=== PATIENT | female | born 1970 | race Caucasian/White ===

== ENCOUNTER 2024-04-18 10:47 | Inpatient (IN) ==
--- NOTE | 2024-04-18 11:20 | Emergency Department Note ---
Impression & Plan Sepsis, Discitis thoracic region, Osteomyelitis of thoracic vertebra, Vertebral abscess, Pleural effusion on left, Pericardial effusion, Hyponatremia, Transaminitis ED Provider Note NAME: YAKOV MCKEON AGE: 54 SEX: F : 1970 ARRIVES VIA: Walk-In INFORMANT: Patient ED PROVIDER(S): Alejandro Rae MD CHIEF COMPLAINT: Back pain, abdominal bloating. PLAN: Disposition: Transfer MEDICAL DECISION MAKING: The patient is a pleasant 54-year-old woman who presents to the emergency department via walk-in accompanied by friend referred from general surgery office visit for evaluation of concern for infection in the setting of being seen in this emergency department on 04/15 for symptoms of abdominal pain and distention in the setting of having constipation and bloating. 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 Additionally, description of abnormal rind of soft tissue involving the partially imaged lower thoracic vertebral bodies was noted and was greatest at T9 and appeared to be contiguous with the pleural-based soft tissue thickening in the left lung. No underlying bony destruction was identified. The appearance favored a neoplastic process such as lymphoma however an infectious or inflammatory process could look similar. Findings reviewed with the patient and she was offered admission at that time but preferred outpatient follow-up and treatment for suspected constipation. Patient reports using MiraLAX since her Emergency Department visit and having loose stools subsequently but reports continuation of abdominal bloating and back pain. She further adds that the pain worsens when she lifts her legs and notes that when she bends her neck forward she feels pain go down her back into her legs. She feels bloated in her abdomen but denies dyspnea abdominal pain. She has she denies any measured fevers. She denies nausea and vomiting but is burping a lot. She denies any chest pain or shortness of breath. Patient reports she has had minimal oral intake but has been attempting to drink water. On evaluation the patient is no distress, afebrile heart in the 120s upon presentation to triage and vital signs otherwise stable. Heart rate did improve with IV fluid hydration. Patient appears clinically dry. She has mild abdominal distention without tenderness, guarding or rebound. He does report pain that radiates down her back to her legs with neck flexion. She further reports pain in her back with flexion of bilateral hips. She has normal strength in all extremities. Reflexes within normal limits. No clonus. EKG without overt acute ischemia. CXR with left pleural effusion WBC 26.8K with neutrophil predominance increased from 11K several days ago. H/H and platelets within normal limits. ESR and CRP are elevated at 78 and 51, respectively. Chemistry without metabolic acidosis. Sodium is 121 likely related to poor solute intake and hemodilution. Serum osmolality 257, urine osmolality 384, and undetectable urine sodium. LFTs demonstrate transaminitis with total bilirubin 1.7, AST 69 and ALT 64 with alk phos 206. HS troponin 41.3, nonspecific. Procalcitonin is elevated 2.2 consistent with suspicion for infection/sepsis. UA without convincing evidence of infection. CT of the head, CT L-spine, soft tissue neck, chest and abdomen pelvis were obtained to further clarify patient no symptoms. Interval findings include progression of prior thoracic findings including paravertebral abnormality centered at T8-T9 with left paravertebral phlegmon/developing abscess. There is description of evidence for epidural extension with moderate narrowing of the thecal sac which could represent an epidural abscess or mass with MRI is recommended though CT thoracic spine with contrast shows no significant central canal narrowing by CT. Further, small focus of bony destruction with the left side of the T9 vertebral body is consistent with osteomyelitis. There may be associated discitis at the T8-T9 level. Small pleural effusion is present as is a small pericardial effusion with mild enhancement of the pericardium which may represent mild pericarditis. Patient's previously identified mucocele is again described. Mildly distended and fluid-filled colon is seen. Fibroid uterus is again present. Case was discussed with [place] [facility], Dr. Romero who was not on-call however appreciate discussion and recommendations. Unfortunately, due to no spine coverage in addition to the complex characteristics of the patient's findings recommends transfer to tertiary care center for further management where there is spine availability as well as IR capability for biopsy/culture. Agrees with initiation of IV antibiotics. Findings were reviewed with the patient and friend at the bedside. Ultimately, they agree with plan [place] [facility] [place]. Case was discussed with triage officer Dr. Casarez who will review the case with inpatient hospitalist service and neurosurgery. The patient was accepted [place] [facility] [place] and was accepted by Dr. Mo. Unfortunately, there are no beds available until tomorrow. Thus, patient was referred to hospital service for admission until bed is assigned and transfer is arranged. Case was d/w Dr. Gonzales, [facility] hospitalist who will evaluate the patient for admission. Triage Nursing notes reviewed and agree them. Prior/external medical records reviewed Vital Signs: reviewed Differential diagnosis: Sepsis, UTI, pneumonia, metabolic, electrolyte abnormalities, cardiac sources, intracerebral event, toxicologic, neurologic, as well as other pathologies. ER treatment provided: See below. Diagnostics interpreted by me: ECG: Sinus tachycardia, 113 bpm, occasional PVCs, no overt ST ovation or depression, no AR depressions, QTc 447, QRS 84. Cardiac Monitoring: An order for continuous cardiac monitoring was placed and demonstrated Sinus tachycardia, 113 bpm, occasional PVC Laboratory studies: See below Imaging studies: See below Consultation(s): Dr. Romero, [place] [facility]. Dr. Casarez, [facility] [place] HPI: The patient is a pleasant 54-year-old woman who presents to the emergency department via walk-in accompanied by friend referred from general surgery office visit for evaluation of concern for infection in the setting of being seen in this emergency department on 04/15 for symptoms of abdominal pain and distention in the setting of having constipation and bloating. 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 Additionally, description of abnormal rind of soft tissue involving the partially imaged lower thoracic vertebral bodies was noted and was greatest at T9 and appeared to be contiguous with the pleural-based soft tissue thickening in the left lung. No underlying bony destruction was identified. The appearance favored a neoplastic process such as lymphoma however an infectious or inflammatory process could look similar. Findings reviewed with the patient and she was offered admission at that time but preferred outpatient follow-up and treatment for suspected constipation. Patient reports using MiraLAX since her Emergency Department visit and having loose stools subsequently but reports continuation of abdominal bloating and back pain. She further adds that the pain worsens when she lifts her legs and notes that when she bends her neck forward she feels pain go down her back into her legs. She feels bloated in her abdomen but denies dyspnea abdominal pain. She has she denies any measured fevers. She denies nausea and vomiting but is burping a lot. She denies any chest pain or shortness of breath. Patient reports she has had minimal oral intake but has been attempting to drink water. ROS: See above HPI for pertinent positives & negatives. A total of 10 systems reviewed and were otherwise negative. VITALS:See Below PHYSICAL EXAMINATION: GENERAL: Awake, alert, uncomfortable-appearing, in no distress HENT: Normocephalic, atraumatic. Oropharynx with dry mucous membranes and otherwise unremarkable. EYES: Normal conjunctiva. Sclera non-icteric. NECK: Supple. No nuchal rigidity. FROM. No JVD. RESPIRATORY: Clear to auscultation. CARDIAC: Regular rate, normal rhythm. Extremities warm and well perfused. Pulses equal. ABDOMEN: Mild distension but soft. No tenderness to palpation. No rebound or guarding. No masses. MUSCULOSKELETAL: Chest examination reveals no tenderness. The back is symmetrical on inspection without obvious abnormality. There is no CVA tenderness to palpation. No joint edema. LOWER EXTREMITIES: Calves are equal size bilaterally and non-tender. No edema. No discoloration. NEURO: Normal sensorium. No sensory or motor deficits noted. 5/5 strength and SILT x 4 extremities. DTRs wnl. No clonus. SKIN: No rash or jaundice noted. ED COURSE: Critical Care: I have personally spent greater than 95 minutes of critical care time in the direct management of this patient. This includes bedside care, interpretation of diagnostic studies, and testing, discussion with consultants, patient, and family members, and other required patient management activities. This 95 minutes is in excess of all separately billable procedures. Alejandro Rae MD Past Med/Surg History Problem List (Updated 04/18/24 @ 17:23 by Alejandro Rae MD) Transaminitis (Acute) Hyponatremia (Acute) Pericardial effusion (Acute) Pleural effusion on left (Acute) Vertebral abscess (Acute) Osteomyelitis of thoracic vertebra (Acute) Discitis thoracic region (Acute) Sepsis (Acute) Back pain Back problem Abnormal CT of thoracic spine (Acute) Mucocele of appendix (Acute) Abdominal pain (Acute) Surgical History History of wisdom tooth extraction Family History Other Adopted Social History Smoking Status: Never smoker Hx Alcohol Use: No Hx Substance Use: No Preferred Language: Cameroonian marital status: Single current occupational status: employed 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[employer], 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 How many Children do You have: 0 Feels Safe at Home: Yes Diet: regular during the past year weight has: remained stable Allergies Allergies Allergy/AdvReac Type Severity Reaction Status Date / Time [id number] Allergy Mild Uncoded 01/17/07 23:08 Home Meds Home Medications Medication Instructions Recorded Confirmed None (Patient States No Home Meds) ##0 01/17/07 Results & Data (ED) Vital Signs Vital Signs - 24 hr 04/18/24 10:57 04/18/24 13:07 04/18/24 13:09 Temperature 36.5 C Temperature Source Temporal Artery Scan Pulse Rate 129 H 101 H 98 H Pulse Rate [Apical] Pulse Rate from SpO2 Sensor 98 H Pulse Rhythm [Apical] Pulse Strength [Apical] Respiratory Rate 18 28 H Respiratory Effort / Characteristics Non-Labored Respiratory Depth Normal Respiratory Pattern Regular Blood Pressure 117/75 Blood Pressure [Right Arm] Blood Pressure Mean 89 Blood Pressure Mean [Right Arm] Blood Pressure Position [Right Arm] Pulse Oximetry 92 94 Oxygen Delivery Method Room Air Sepsis Recent Fever Within 48 Hours No Sepsis New/Unexplained Change in Mental Status N/A Sepsis Action Taken by Nursing No Action Required 04/18/24 13:15 04/18/24 13:22 04/18/24 13:30 Temperature Temperature Source Pulse Rate 101 H Pulse Rate [Apical] Pulse Rate from SpO2 Sensor 101 H Pulse Rhythm [Apical] Pulse Strength [Apical] Respiratory Rate 26 H Respiratory Effort / Characteristics Respiratory Depth Respiratory Pattern Blood Pressure 113/75 106/67 Blood Pressure [Right Arm] Blood Pressure Mean 92 83 Blood Pressure Mean [Right Arm] Blood Pressure Position [Right Arm] Pulse Oximetry 93 Oxygen Delivery Method Sepsis Recent Fever Within 48 Hours Sepsis New/Unexplained Change in Mental Status Sepsis Action Taken by Nursing 04/18/24 13:30 04/18/24 13:49 04/18/24 16:00 Temperature 36.5 C Temperature Source Oral Pulse Rate 102 H Pulse Rate [Apical] 95 H Pulse Rate from SpO2 Sensor 102 H Pulse Rhythm [Apical] Regular Pulse Strength [Apical] Normal Respiratory Rate 24 24 Respiratory Effort / Characteristics Non-Labored Respiratory Depth Normal Respiratory Pattern Regular Blood Pressure 128/85 Blood Pressure [Right Arm] 105/76 Blood Pressure Mean 100 Blood Pressure Mean [Right Arm] 85 Blood Pressure Position [Right Arm] Semi-fowlers Pulse Oximetry 94 94 Oxygen Delivery Method Room Air Sepsis Recent Fever Within 48 Hours Sepsis New/Unexplained Change in Mental Status Sepsis Action Taken by Nursing Laboratory Data Attestation: I reviewed the patient's lab results. 04/18/24 11:11 04/18/24 11:11 Lab Results 04/18/24 04/18/24 04/18/24 Range/Units 11:07 11:11 12:02 WBC 26.84 H (4.8-10.8) K/ul RBC 4.73 (4.20-5.40) M/uL Hgb 14.0 (12.0-16.0) g/dl Hct 39.9 (37.0-47.0) % MCV 84.4 (80.0-100.0) fL MCH 29.6 (25.0-34.0) pg MCHC 35.1 (32.0-36.0) g/dL RDW Std Deviation 42.9 (36.4-46.3) fL RDW Coeff of Mita 13.9 (11.5-14.5) % Plt Count 214 (130-400) K/uL MPV 11.6 (9.4-12.4) fL Neutrophils % (Manual) 91 % Lymphocytes % (Manual) 3 % Monocytes % (Manual) 6 % Neutrophils # (Manual) 24.42 H (1.40-6.50) K/uL Total Absolute Neuts 24.42 H (1.4-6.5) K/uL Lymphocytes # (Manual) 0.81 L (1.2-3.4) K/uL Total Abs Lymphocytes 0.81 L (1.2-3.4) K/uL Monocytes # (Manual) 1.61 H (0.11-0.59) K/uL ESR 78 H (0-30) mm/hr PT 12.2 H (9.0-12.0) Seconds INR 1.1 (0.9-1.1) Sodium 121 L (136-145) mmol/L Potassium 4.5 (3.5-5.1) mmol/L Chloride 80 L (98-107) mmol/L Carbon Dioxide 29 (21-32) mmol/L Anion Gap 12 H (3-11) BUN 15 (6-23) mg/dl Creatinine 0.92 (0.6-1.2) mg/dl Est Cr Clr Drug Dosing Not Reportable Est GFR ( Amer) 80.7 ml/min Est GFR (Non-Af Amer) 69.6 ml/min BUN/Creatinine Ratio 16.3 (10-20) Glucose 200 H (70-99(Fasting)) mg/dl Osmolality 257 L (280-300) mOsm/kg Lactate Cancelled Calcium 8.8 (8.6-10.3) mg/dl Total Bilirubin 1.7 H (0.2-1.0) mg/dl AST 69 H (13-39) U/L ALT 64 H (7-52) U/L Alkaline Phosphatase 206 H (34-104) U/L Troponin I High Sens 41.3 H (0-14) pg/ml C-Reactive Protein 51.54 H (0-0.5) mg/dl Total Protein 7.1 (6.0-8.3) gm/dl Albumin 3.6 (3.4-5.0) gm/dl Globulin 3.5 (2.5-4.0) gm/dl Albumin/Globulin Ratio 1.0 (0.9-2) Lipase 6 L (11-82) U/L Procalcitonin 2.24 H (0-0.5) ng/ml HCG, Qual Negative (Negative) Urine Color Dark Yellow Urine Appearance Cloudy A (Clear) Urine pH 6.0 (4.5-7.5) Ur Specific [place] 1.018 (1.000-1.030) Urine Protein 2+ H (Negative) Urine Glucose (UA) Negative (Negative) Urine Ketones 2+ H (Negative) Urine Blood Negative (Negative) Urine Nitrite Negative (Negative) Urine Bilirubin Negative (Negative) Urine Urobilinogen Negative (Negative) Ur Leukocyte Esterase Trace H (Negative) Urine WBC (Auto) 0-5 (0-5) /hpf Urine RBC (Auto) 0-2 (0-2) /hpf U Hyaline Cast (Auto) 6-10 H (0-2) /lpf U Epithel Cells (Auto) 6-10 H (0-2) /hpf Urine Bacteria (Auto) None Seen (None Seen) Hyaline Casts Present A (None Presnt) /lpf Granular Casts Present A (None Prsent) /lpf Urine Osmolality 384 L (500-800) mOsm/kg Ur Random Sodium < 10 mmol/L Adenovirus (PCR) (NotDetected) Anaplasma Smear See Comment Babesia Smear See Comment B. pertussis DNA (PCR) (NotDetected) B.parapertussis DNA PCR (NotDetected) Lyme Disease Screen Negative (Negative) C. pneumoniae DNA (PCR) (NotDetected) Coronavirus OC43 (PCR) (NotDetected) Coronavirus HKU1 (PCR) (NotDetected) Coronavirus 229E (PCR) (NotDetected) SARS-CoV-2 (PCR) (NotDetected) Coronavirus NL63 (PCR) (NotDetected) Human Metapneumovir PCR (NotDetected) Influenza Type A (PCR) (NotDetected) Influenza Type B (PCR) (NotDetected) M. pneumoniae (PCR) (NotDetected) Parainfluenza 1 (PCR) (NotDetected) Parainfluenza 2 (PCR) (NotDetected) Parainfluenza 3 (PCR) (NotDetected) Parainfluenza 4 (PCR) (NotDetected) RSV (PCR) (NotDetected) Entero/Rhino (PCR) (NotDetected) 04/18/24 04/18/24 Range/Units 12:47 14:22 WBC (4.8-10.8) K/ul RBC (4.20-5.40) M/uL Hgb (12.0-16.0) g/dl Hct (37.0-47.0) % MCV (80.0-100.0) fL MCH (25.0-34.0) pg MCHC (32.0-36.0) g/dL RDW Std Deviation (36.4-46.3) fL RDW Coeff of Mita (11.5-14.5) % Plt Count (130-400) K/uL MPV (9.4-12.4) fL Neutrophils % (Manual) % Lymphocytes % (Manual) % Monocytes % (Manual) % Neutrophils # (Manual) (1.40-6.50) K/uL Total Absolute Neuts (1.4-6.5) K/uL Lymphocytes # (Manual) (1.2-3.4) K/uL Total Abs Lymphocytes (1.2-3.4) K/uL Monocytes # (Manual) (0.11-0.59) K/uL ESR (0-30) mm/hr PT (9.0-12.0) Seconds INR (0.9-1.1) Sodium (136-145) mmol/L Potassium (3.5-5.1) mmol/L Chloride (98-107) mmol/L Carbon Dioxide (21-32) mmol/L Anion Gap (3-11) BUN (6-23) mg/dl Creatinine (0.6-1.2) mg/dl Est Cr Clr Drug Dosing Est GFR ( Amer) ml/min Est GFR (Non-Af Amer) ml/min BUN/Creatinine Ratio (10-20) Glucose (70-99(Fasting)) mg/dl Osmolality (280-300) mOsm/kg Lactate 1.3 Calcium (8.6-10.3) mg/dl Total Bilirubin (0.2-1.0) mg/dl AST (13-39) U/L ALT (7-52) U/L Alkaline Phosphatase (34-104) U/L Troponin I High Sens (0-14) pg/ml C-Reactive Protein (0-0.5) mg/dl Total Protein (6.0-8.3) gm/dl Albumin (3.4-5.0) gm/dl Globulin (2.5-4.0) gm/dl Albumin/Globulin Ratio (0.9-2) Lipase (11-82) U/L Procalcitonin (0-0.5) ng/ml HCG, Qual (Negative) Urine Color Urine Appearance (Clear) Urine pH (4.5-7.5) Ur Specific [place] (1.000-1.030) Urine Protein (Negative) Urine Glucose (UA) (Negative) Urine Ketones (Negative) Urine Blood (Negative) Urine Nitrite (Negative) Urine Bilirubin (Negative) Urine Urobilinogen (Negative) Ur Leukocyte Esterase (Negative) Urine WBC (Auto) (0-5) /hpf Urine RBC (Auto) (0-2) /hpf U Hyaline Cast (Auto) (0-2) /lpf U Epithel Cells (Auto) (0-2) /hpf Urine Bacteria (Auto) (None Seen) Hyaline Casts (None Presnt) /lpf Granular Casts (None Prsent) /lpf Urine Osmolality (500-800) mOsm/kg Ur Random Sodium mmol/L Adenovirus (PCR) Not Detected (NotDetected) Anaplasma Smear Babesia Smear B. pertussis DNA (PCR) Not Detected (NotDetected) B.parapertussis DNA PCR Not Detected (NotDetected) Lyme Disease Screen (Negative) C. pneumoniae DNA (PCR) Not Detected (NotDetected) Coronavirus OC43 (PCR) Not Detected (NotDetected) Coronavirus HKU1 (PCR) Not Detected (NotDetected) Coronavirus 229E (PCR) Not Detected (NotDetected) SARS-CoV-2 (PCR) Not Detected (NotDetected) Coronavirus NL63 (PCR) Not Detected (NotDetected) Human Metapneumovir PCR Not Detected (NotDetected) Influenza Type A (PCR) Not Detected (NotDetected) Influenza Type B (PCR) Not Detected (NotDetected) M. pneumoniae (PCR) Not Detected (NotDetected) Parainfluenza 1 (PCR) Not Detected (NotDetected) Parainfluenza 2 (PCR) Not Detected (NotDetected) Parainfluenza 3 (PCR) Not Detected (NotDetected) Parainfluenza 4 (PCR) Not Detected (NotDetected) RSV (PCR) Not Detected (NotDetected) Entero/Rhino (PCR) Not Detected (NotDetected) Administered Medications Vancomycin HCl 1,750 mg/ (Sodium Chloride) 535 mls @ 200 mls/hr IV NOW ONE Stop: 04/18/24 18:24 Last Admin: 04/18/24 16:59 Dose: 200 mls/hr Documented By: ROVERTO Sodium Chloride (Nss) 1,000 mls @ 125 mls/hr IV .Q8H VICKI Stop: 05/18/24 15:59 Last Admin: 04/18/24 16:58 Dose: 125 mls/hr Documented By: ROVERTO Discontinued Medications Sodium Chloride (Nss) 1,000 mls @ 999 mls/hr IV .Q1H1M VICKI Stop: 04/18/24 13:30 Last Infusion: 04/18/24 16:54 Dose: Infused Documented By: Admin: 04/18/24 13:49 Dose: 999 mls/hr Documented By: Infusion: 04/18/24 12:50 Dose: Infused Documented By: Admin: 04/18/24 11:49 Dose: 999 mls/hr Documented By: NICHOLAS Acetaminophen (Ofirmev) 1,000 mg in 100 mls @ 400 mls/hr IV NOW STA Stop: 04/18/24 11:59 Last Infusion: 04/18/24 12:30 Dose: Infused Documented By: Admin: 04/18/24 11:51 Dose: 400 mls/hr Documented By: NICHOLAS Cefepime HCl (Maxipime) 2,000 mg in 20 mls @ 5 mls/min IV NOW STA; Protocol Stop: 04/18/24 15:20 Last Admin: 04/18/24 15:37 Dose: 5 mls/min Documented By: ROVERTO Metronidazole (Flagyl) 500 mg in 100 mls @ 100 mls/hr IV NOW STA; Protocol Stop: 04/18/24 16:16 Last Infusion: 04/18/24 16:53 Dose: Infused Documented By: Admin: 04/18/24 15:45 Dose: 100 mls/hr Documented By: ROVERTO Ioversol (Optiray 320 100ml) 94 ml IV ONCE ONE Stop: 04/18/24 12:28 Last Admin: 04/18/24 12:27 Dose: 94 ml Documented By: BISI Imaging Data Radiologist's Impression: Chest X-Ray 04/18/24 11:24 XR chest 1V portable HISTORY: fever COMPARISON: None. FINDINGS: Small left pleural effusion and left basilar densities suggestive of atelectasis. No pneumothorax. The heart is mildly enlarged. The right lung is clear. No evidence for pulmonary edema. No acute fractures. IMPRESSION: 1. Small left pleural effusion. 2. Left basilar densities favor atelectasis. 3. Mild cardiomegaly. ACT 112: Negative or not required by law. Electronically signed by: Frankie Peña M.D. 04/18/2024 1:26 PM Abdomen/Pelvis CT 04/18/24 11:[address] WITH IV CONTRAST CT DOSE: HISTORY: AP, bloating, liea-esgy-jve pain, ?lympho/Infect TECHNIQUE: Multiaxial CT images of the abdomen and pelvis were performed following the use of intravenous contrast. A dose lowering technique was utilized adhering to the principles of ALARA. COMPARISON STUDY: Abdomen and pelvis CT 04/15/2024. FINDINGS: Please refer to the dedicated chest CT and thoracic spine CT performed same day for further evaluation of the paravertebral abnormality at the T8-T9 level. There appears to be epidural extension of the paravertebral abnormality at the T8-T9 level with moderate narrowing of the thecal sac best seen on image 50. The punctate focus of gas posterior to the T10 vertebral body. Therefore, this could represent an epidural abscess. A paravertebral soft tissue mass also remains in the differential diagnosis. Small foci of gas along the left side of the paravertebral T8-T9 level is again noted suggestive of a paravertebral abscess/phlegmon. Small focus of bone erosion within the left side of the T9 vertebral body is also noted. Small left pleural effusion. No pneumoperitoneum. No pneumatosis. The heart is enlarged. Mild pericardial enhancement with a small pericardial effusion. A 7 mm hypodense lesion within the periphery the right hepatic lobe remain stable. This favors a cyst. The gallbladder, pancreas, spleen, and adrenal glands are unremarkable. The kidneys enhance normally. No hydronephrosis. The main portal vein is patent. Normal caliber abdominal aorta. No retroperitoneal or pelvic lymphadenopathy. Multiple large uterine masses consistent with fibroids. The bladder is unremarkable. Mild pelvic floor collapse. Mild body wall edema. Fluid-filled loops of large or small bowel seen throughout the abdomen. There is mild distention of the colon. This could represent an ileus or gastroenteritis/diarrheal illness. No evidence for a bowel obstruction. Partially calcified hypodense lesion within the appendix best seen on image 255 measuring 3.9 cm. This is consistent with a mucocele. IMPRESSION: 1. Interval progression of the paravertebral abnormality centered at the T8-T9 level with a left paravertebral phlegmon/developing abscess. There is evidence for epidural extension with moderate narrowing of the thecal sac. Therefore, this could represent an epidural abscess or mass. Dedicated thoracic spine MRI is recommended for further evaluation. 2. Small focus of bony destruction within the left side of the T9 vertebral body consistent with an osteomyelitis. There may be associated discitis at the T8-T9 level. 3. Small left pleural effusion. 4. Small pericardial effusion with mild enhancement of the pericardium which may represent a mild pericarditis. 5. 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 Nonemergent surgical consultation recommended for removal. 6. Fibroid uterus. 7. Mildly distended and fluid-filled colon. This could be due to an ileus or diarrhea illness/gastroenteritis. 8. Additional findings as described above. ACT 112: Negative or not required by law. Electronically signed by: Frankie Peña M.D. 04/18/2024 1:35 PM Cervical Spine CT 04/18/24 11:37 CT OF THE CERVICAL SPINE WITHOUT CONTRAST CLINICAL HISTORY: Neck pain. COMPARISON STUDY: No previous studies for comparison. TECHNIQUE: Helical axial images of the cervical spine were obtained without IV contrast. Sagittal and coronal reconstructions were viewed. Automated exposure control was utilized for the study. A dose lowering technique was utilized adhering to the principles of ALARA. FINDINGS: Alignment of the cervical spine is anatomic. Vertebral body heights are maintained. No acute cervical spine fracture or subluxation is present. There is no prevertebral edema. Facet joints are intact. There is mild multilevel disc space narrowing and osteophytosis of the facet arthrosis within the cervical spine. Central canal and neural foramen are suboptimally assessed given CT technique. A small amount of fluid within the right mastoid air cells is present. IMPRESSION: 1. No acute cervical spine fracture or subluxation. 2. Mild multilevel degenerative disc disease and facet arthrosis within the cervical spine. ACT 112: Negative or not required by law. Electronically signed by: Edwin Spring M.D. 04/18/2024 1:[address] 04/18/24 11:[address] WITH CONTRAST CT DOSE: HISTORY: [id number] pain, ?lympho/Infect TECHNIQUE: Multiaxial CT images of the chest were performed following the intravenous administration of contrast. A dose lowering technique was utilized adhering to the principles of ALARA. COMPARISON: Abdomen and pelvis CT 04/15/2024. FINDINGS: Paravertebral edema at the T8-T9 level with a few small foci of left paravertebral soft tissue gas are again noted and are better appreciated on the same day thoracic spine CT. Small focal erosion at the left superior endplate of T9 best in image 149. The small foci of the left paravertebral gas are consistent with a developing abscess/phlegmon. There is a small left pleural effusion. Subcentimeter mediastinal and hilar lymph nodes do not meet CT criteria for pathologic involvement. Dominant superior mediastinal lymph node on image 21 measures 8 mm. Small pericardial effusion with mild enhancement of the pericardium. This could represent a mild pericarditis. The heart is mildly enlarged. Mild circumferential thickening of the mid to distal esophagus which could be reactive to the paravertebral abnormality. There is a punctate focus of gas posterior to the T10 vertebral body within the anterior epidural space. The abdominal structures will be reported on the same day abdomen and pelvis CT. The main pulmonary artery is dilated up to 3 cm consistent with mild pulmonary arterial hypertension. Otherwise, the central airways are patent. There is mild body wall edema. No pneumothorax. The central airways are patent. Bibasilar linear densities favor subsegmental atelectasis. Focal consolidation within the base of the left lower lobe favors compressive atelectasis from the small left pleural effusion. IMPRESSION: 1. Paravertebral abnormality centered at the T8-T9 level is better appreciated on the same day thoracic spine CT. There are few small foci of gas within the left paravertebral space at this location which suggests a phlegmon/developing abscess. There is also a small focus of bony erosion at the left superior osteophyte of T9 consistent with osteomyelitis. Dedicated MRI of the thoracic spine is recommended for further evaluation. 2. The punctate focus of gas posterior to the T10 vertebral body which is indeterminate. Attention at follow-up recommended. 3. Small left pleural effusion. 4. Small pericardial effusion with mild enhancement of the pericardium. This could represent a mild pericarditis. 5. No significant lymphadenopathy identified. 6. Circumferential thickening within the mid to distal esophagus. This could be reactive to the paravertebral abnormality. 7. Additional findings as described above. ACT 112: Negative or not required by law. Electronically signed by: Frankie Peña M.D. 04/18/2024 1:[address] 04/18/24 11:37 CT SCAN OF THE BRAIN WITHOUT IV CONTRAST CLINICAL HISTORY: Neck pain. COMPARISON STUDY: No priors. TECHNIQUE: Unenhanced axial CT scan of the brain is performed from the vertex to the skull base. A dose lowering technique was utilized adhering to the principles of ALARA. FINDINGS: Brain parenchyma: The brain parenchyma is normal in appearance. There is no hemorrhage, mass effect, or evidence of acute territorial ischemia by CT criteria. Mejias-white matter differentiation is preserved. No extra-axial fluid collection is seen. Ventricles, sulci, cisterns: Normal in configuration. Intracranial vasculature: The visualized intracranial vasculature at the skull base is normal in appearance. Calvarium: Unremarkable. Sinuses and mastoids: The visualized paranasal sinuses are clear. There is a right mastoid effusion. The left mastoid air cells are well pneumatized. Orbits: The bony orbits are grossly intact. IMPRESSION: No acute intracranial abnormality. ACT 112: Negative or not required by law. Electronically signed by: Guillermo Eldridge M.D. 04/18/2024 12:[address] 04/18/24 11:37 CT SCAN OF THE LUMBAR SPINE WITH IV CONTRAST CLINICAL HISTORY: Back pain. Leg pain. COMPARISON STUDY: Abdominal CT performed concurrently on 04/18/[address] dated 04/15/2024. TECHNIQUE: Following the IV administration of 94 cc of Optiray 320, CT scan of the lumbar spine was performed from the lower thoracic spine to the sacrum. Images are reviewed in the axial, sagittal, and coronal planes. IV contrast was administered without complication. A dose lowering technique was utilized adhering to the principles of ALARA. CT DOSE: 2908.14 mGy.cm FINDINGS: The skeletal structures are well-mineralized. There is no evidence of fracture or malalignment involving the lumbar spine. Vertebral body height and alignment are maintained. The transverse and spinous processes are intact. There is no spondylolysis. No lytic or blastic lesion is seen. Tiny anterior and lateral marginal osteophytes are seen throughout. No lytic or blastic lesion is identified. There is mild degenerative disc space narrowing, greatest at L2-L3 and L3-L4. There is no CT evidence of large disc herniation or central canal stenosis. The lumbar paraspinous soft tissues are normal in appearance. A left pleural effusion is partially imaged. No retroperitoneal lymphadenopathy is seen. 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 Uterine mass lesions are partially imaged and typical for fibroids. IMPRESSION: 1. No acute bony abnormality is seen involving the lumbar spine. 2. 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 3. A left pleural effusion is partially imaged. 4. Additional findings as above. ACT 112: Negative or not required by law. Dictated: 04/18/2024 12:52 PM Transcribed: 04/18/2024 1:22 PM Sarah [id number] [id number] Electronically signed by: Guillermo Eldridge M.D. 04/18/2024 5:[address] 04/18/24 11:37 CT OF THE NECK WITH IV CONTRAST CLINICAL HISTORY: [id number] pain, ?lympho/Infect COMPARISON STUDY: No previous studies for comparison. TECHNIQUE: Following IV administration of 94 mL of Optiray, helical axial images of the neck were obtained. Sagittal and coronal reconstructions were viewed. Automated exposure control was utilized for the study. A dose lowering technique was utilized adhering to the principles of ALARA. FINDINGS: There is a small amount of fluid within the right mastoid air cells. The sinuses are clear. The parotid and submandibular glands are unremarkable. The epiglottis is normal. No prevertebral edema edema. There are no fluid collection within the neck. Major vasculature of the neck is patent. No cervical lymphadenopathy. No mucosal lesions are identified. Mild multilevel degenerative disc disease and facet arthrosis within the cervical spine is present. A small left pleural effusion is partially imaged. The chest CT will be reported separately. IMPRESSION: 1. No acute process within the neck. 2. No cervical lymphadenopathy or masses. 3. Small left pleural effusion, better depicted on the chest CT which will be reported separately. ACT 112: Negative or not required by law. Electronically signed by: Edwin Spring M.D. 04/18/2024 1:[address] 04/18/24 11:37 CT thoracic spine w con CT DOSE: CLINICAL HISTORY: [id number] pain, ?lympho/Infect TECHNIQUE: Multiaxial CT images of the thoracic spine were performed following the intravenous administration of contrast and reformatted in the sagittal and coronal planes. A dose lowering technique was utilized adhering to the principles of ALARA. COMPARISON STUDY: Abdomen and pelvis CT 04/15/2024. FINDINGS: There is abnormal paravertebral soft tissue swelling centered at the T8-T9 level with a few small foci of paravertebral soft tissue gas along the left side of the T8-T9 level. Therefore, this likely represents underlying paravertebral infection with developing abscess/phlegmon. There is a small focus of cortical erosion along the left superior osteophyte of T9 best seen on coronal image 46. However, the disc space is preserved without significant endplate destruction. Therefore, these findings favor a paravertebral infection with secondary involvement of the T9 vertebral body consistent with an osteomyelitis. A discitis/osteomyelitis at the T8-T9 level also remains in the differential diagnosis given the surrounding paravertebral edema. There is a small left pleural effusion. No significant central canal narrowing by CT technique. No fracture or subluxation within the thoracic spine. IMPRESSION: 1. Abnormal paravertebral soft tissue swelling centered at the T8-T9 level which has progressed in the interval with a few small foci of left paravertebral gas at this location. Therefore, this is consistent with a paravertebral infection with developing abscess/phlegmon. 2. . There is a small focus of cortical erosion along the left superior osteophyte of T9 as described above. However, the disc space is preserved without significant endplate destruction. Therefore, these findings favor a paravertebral infection with secondary involvement of the T9 vertebral body consistent with an osteomyelitis. A discitis/osteomyelitis at the T8-T9 level also remains in the differential diagnosis given the surrounding paravertebral edema. ACT 112: Negative or not required by law. Electronically signed by: Frankie Peña M.D. 04/18/2024 1:16 PM Discharge Plan Visit Data Chief Complaint: Referred by Doctor Stated Complaint: REF BY DOC FOR MULTIPLE SYMPTOMS ED Provider: Alejandro Rae Discharge Problem: Sepsis, Discitis thoracic region, Osteomyelitis of thoracic vertebra, Vertebral abscess, Pleural effusion on left, Pericardial effusion, Hyponatremia, Transaminitis Forms Stand Alone Forms: [employer] Prescriptions Prescriptions: No Action None (Patient States No Home Meds) . Qty: 0 Referrals Referrals: PCP,NO [Physician] - Discharge Problem: Sepsis Qualifiers: Sepsis type: sepsis due to unspecified organism Sepsis acute organ dysfunction status: unspecified Qualified Code(s): A41.9 - Sepsis, unspecified organism
[2024-04-18 11:31] LABS: Appearance Urine Cloudy (Clear); Bacteria Urine Automated None Seen (None Seen); Bilirubin Urine Negative (Negative); Blood Urine Negative (Negative); Color Urine Dark Yellow; Glucose Urine UA Negative (Negative); Ketones Urine 2+ (Negative); Leukocyte Esterase Urine Trace (Negative); Nitrite Urine Negative (Negative); Protein Urine 2+ (Negative); RBC Urine Automated 0-2 /hpf (0-2); Specific Gravity Urine 1.018 (1.000-1.030); Urobilinogen Urine Negative (Negative); WBC Urine Automated 0-5 /hpf (0-5)
[2024-04-18 11:42] LABS: Granular Casts Urine Present /lpf (None Prsent); Hyaline Casts Urine Present /lpf (None Presnt)
[2024-04-18 11:44] LABS: Pregnancy Test, Serum Negative (Negative)
[2024-04-18 11:46] LABS: Alanine Aminotransferase 64 U/L (7-52); Albumin Level 3.6 gm/dl (3.4-5.0); Alkaline Phosphatase 206 U/L (34-104); Anion Gap 12 (3-11); Aspartate Aminotransferase 69 U/L (13-39); BUN Creatinine Ratio 16.3 (10-20); Bilirubin,Total 1.7 mg/dl (0.2-1.0); Blood Urea Nitrogen 15 mg/dl (6-23); Calcium 8.8 mg/dl (8.6-10.3); Carbon Dioxide 29 mmol/L (21-32); Chloride 80 mmol/L (98-107); Est GFR (African American) 80.7 ml/min; Est GFR (Non-African American) 69.6 ml/min; Globulin 3.5 gm/dl (2.5-4.0); Glucose 200 mg/dl (70-99(Fasting)); Lipase 6 U/L (11-82); Potassium 4.5 mmol/L (3.5-5.1); Sodium 121 mmol/L (136-145); Total Protein 7.1 gm/dl (6.0-8.3)
[2024-04-18] MEDS: SODIUM CHLORIDE 0.9% 1,000 ML IV SCH ×2 (11:49→16:58)
[2024-04-18] MEDS: ACETAMINOPHEN 1,000 MG/100 ML VIAL IV STA (11:51)
[2024-04-18 12:09] LABS: ALC (manual) 0.81 K/uL (1.2-3.4); ANC (manual) 24.42 K/uL (1.4-6.5); Hematocrit (blood only) 39.9 % (37.0-47.0); Lymphocytes # (manual) 0.81 K/uL (1.2-3.4); Lymphocytes % (manual) 3 %; Mean Corpuscular Hemoglobin 29.6 pg (25.0-34.0); Mean Corpuscular Hgb Conc 35.1 g/dL (32.0-36.0); Mean Corpuscular Volume 84.4 fL (80.0-100.0); Mean Platelet Volume 11.6 fL (9.4-12.4); Monocytes # (manual) 1.61 K/uL (0.11-0.59); Monocytes % (manual) 6 %; Neutrophils # (manual) 24.42 K/uL (1.40-6.50); Neutrophils % (manual) 91 %; Platelet Count 214 K/uL (130-400); RDW Coefficient of Variation 13.9 % (11.5-14.5); RDW Standard Deviation 42.9 fL (36.4-46.3); Red Blood Count 4.73 M/uL (4.20-5.40); White Blood Count 26.84 K/ul (4.8-10.8)
[2024-04-18 12:14] LABS: Troponin I High Sensitivity 41.3 pg/ml (0-14)
[2024-04-18 12:27] LABS: C Reactive Protein 51.54 mg/dl (0-0.5)
[2024-04-18] MEDS: OPTIRAY 320 100ml IV ONE (12:27)
[2024-04-18 12:37] LABS: INR 1.1 (0.9-1.1); Prothrombin Time 12.2 Seconds (9.0-12.0)
--- NOTE | 2024-04-18 12:50 | CT Scan Report ---
CT SCAN OF THE BRAIN WITHOUT IV CONTRAST CLINICAL HISTORY: Neck pain. COMPARISON STUDY: No priors. TECHNIQUE: Unenhanced axial CT scan of the brain is performed from the vertex to the skull base. A d ose lowering technique was utilized adhering to the principles of ALARA. FINDINGS: Brain parenchyma: The brain parenchyma is normal in appearance. There is no hemorrhage, mass effect, or evidence of acute territorial ischemia by CT criteria. Mejias-white matter differentiation is preser lonnie. No extra-axial fluid collection is seen. Ventricles, sulci, cisterns: Normal in configuration. Intracranial vasculature: The visualized intracranial vasculature at the skull base is normal in appe arance. Calvarium: Unremarkable. Sinuses and mastoids: The visualized paranasal sinuses are clear. There is a right mastoid effusion. The left mastoid air cells are well pneumatized. Orbits: The bony orbits are grossly intact. IMPRESSION: No acute intracranial abnormality. ACT 112: Negative or not required by law. Electronically signed by: Guillermo Eldridge M.D. 04/18/2024 12:49 PM
--- NOTE | 2024-04-18 13:17 | CT Scan Report ---
CT thoracic spine w con CT DOSE: CLINICAL HISTORY: [id number] pain, ?lympho/Infect TECHNIQUE: Multiaxial CT images of the thoracic spine were performed following the intravenous admini stration of contrast and reformatted in the sagittal and coronal planes. A dose lowering technique w as utilized adhering to the principles of ALARA. COMPARISON STUDY: Abdomen and pelvis CT 04/15/2024. FINDINGS: There is abnormal paravertebral soft tissue swelling centered at the T8-T9 level with a few small foci of paravertebral soft tissue gas along the left side of the T8-T9 level. Therefore, this likely represents underlying paravertebral infection with developing abscess/phlegmon. There is a sma ll focus of cortical erosion along the left superior osteophyte of T9 best seen on coronal image 46. However, the disc space is preserved without significant endplate destruction. Therefore, these findi ngs favor a paravertebral infection with secondary involvement of the T9 vertebral body consistent wi th an osteomyelitis. A discitis/osteomyelitis at the T8-T9 level also remains in the differential celso gnosis given the surrounding paravertebral edema. There is a small left pleural effusion. No signific ant central canal narrowing by CT technique. No fracture or subluxation within the thoracic spine. IMPRESSION: 1. Abnormal paravertebral soft tissue swelling centered at the T8-T9 level which has progressed in th e interval with a few small foci of left paravertebral gas at this location. Therefore, this is consi stent with a paravertebral infection with developing abscess/phlegmon. 2. . There is a small focus of cortical erosion along the left superior osteophyte of T9 as described above. However, the disc space is preserved without significant endplate destruction. Therefore, the se findings favor a paravertebral infection with secondary involvement of the T9 vertebral body consi stent with an osteomyelitis. A discitis/osteomyelitis at the T8-T9 level also remains in the differen tial diagnosis given the surrounding paravertebral edema. ACT 112: Negative or not required by law. Electronically signed by: Frankie Peña M.D. 04/18/2024 1:16 PM
--- NOTE | 2024-04-18 13:26 | CT Scan Report ---
CHEST CT WITH CONTRAST CT DOSE: HISTORY: [id number]-[id number] pain, ?lympho/Infect TECHNIQUE: Multiaxial CT images of the chest were performed following the intravenous administration of contrast. A dose lowering technique was utilized adhering to the principles of ALARA. COMPARISON: Abdomen and pelvis CT 04/15/2024. FINDINGS: Paravertebral edema at the T8-T9 level with a few small foci of left paravertebral soft tis himanshu gas are again noted and are better appreciated on the same day thoracic spine CT. Small focal ero fely at the left superior endplate of T9 best in image 149. The small foci of the left paravertebral gas are consistent with a developing abscess/phlegmon. There is a small left pleural effusion. Subcen timeter mediastinal and hilar lymph nodes do not meet CT criteria for pathologic involvement. Dominan t superior mediastinal lymph node on image 21 measures 8 mm. Small pericardial effusion with mild enh ancement of the pericardium. This could represent a mild pericarditis. The heart is mildly enlarged. Mild circumferential thickening of the mid to distal esophagus which could be reactive to the paraver tebral abnormality. There is a punctate focus of gas posterior to the T10 vertebral body within the a nterior epidural space. The abdominal structures will be reported on the same day abdomen and pelvis CT. The main pulmonary artery is dilated up to 3 cm consistent with mild pulmonary arterial hypertens ion. Otherwise, the central airways are patent. There is mild body wall edema. No pneumothorax. The c entral airways are patent. Bibasilar linear densities favor subsegmental atelectasis. Focal consolida tion within the base of the left lower lobe favors compressive atelectasis from the small left pleura l effusion. IMPRESSION: 1. Paravertebral abnormality centered at the T8-T9 level is better appreciated on the same day thorac ic spine CT. There are few small foci of gas within the left paravertebral space at this location whi ch suggests a phlegmon/developing abscess. There is also a small focus of bony erosion at the left dobbins perior osteophyte of T9 consistent with osteomyelitis. Dedicated MRI of the thoracic spine is recomme nded for further evaluation. 2. The punctate focus of gas posterior to the T10 vertebral body which is indeterminate. Attention at follow-up recommended. 3. Small left pleural effusion. 4. Small pericardial effusion with mild enhancement of the pericardium. This could represent a mild p ericarditis. 5. No significant lymphadenopathy identified. 6. Circumferential thickening within the mid to distal esophagus. This could be reactive to the parav ertebral abnormality. 7. Additional findings as described above. ACT 112: Negative or not required by law. Electronically signed by: Frankie Peña M.D. 04/18/2024 1:24 PM
--- NOTE | 2024-04-18 13:28 | XRay Report ---
XR chest 1V portable HISTORY: fever COMPARISON: None. FINDINGS: Small left pleural effusion and left basilar densities suggestive of atelectasis. No pneumo thorax. The heart is mildly enlarged. The right lung is clear. No evidence for pulmonary edema. No ac jo fractures. IMPRESSION: 1. Small left pleural effusion. 2. Left basilar densities favor atelectasis. 3. Mild cardiomegaly. ACT 112: Negative or not required by law. Electronically signed by: Frankie Peña M.D. 04/18/2024 1:26 PM
--- NOTE | 2024-04-18 13:37 | CT Scan Report ---
ABDOMEN AND PELVIS CT WITH IV CONTRAST CT DOSE: HISTORY: AP, bloating, dwnf-[id number]-ism pain, ?lympho/Infect TECHNIQUE: Multiaxial CT images of the abdomen and pelvis were performed following the use of intrave nous contrast. A dose lowering technique was utilized adhering to the principles of ALARA. COMPARISON STUDY: Abdomen and pelvis CT 04/15/2024. FINDINGS: Please refer to the dedicated chest CT and thoracic spine CT performed same day for further evaluation of the paravertebral abnormality at the T8-T9 level. There appears to be epidural extensi on of the paravertebral abnormality at the T8-T9 level with moderate narrowing of the thecal sac best seen on image 50. The punctate focus of gas posterior to the T10 vertebral body. Therefore, this cou ld represent an epidural abscess. A paravertebral soft tissue mass also remains in the differential d iagnosis. Small foci of gas along the left side of the paravertebral T8-T9 level is again noted sugge stive of a paravertebral abscess/phlegmon. Small focus of bone erosion within the left side of the T9 vertebral body is also noted. Small left pleural effusion. No pneumoperitoneum. No pneumatosis. The heart is enlarged. Mild pericardial enhancement with a small pericardial effusion. A 7 mm hypodense l esion within the periphery the right hepatic lobe remain stable. This favors a cyst. The gallbladder, pancreas, spleen, and adrenal glands are unremarkable. The kidneys enhance normally. No hydronephros is. The main portal vein is patent. Normal caliber abdominal aorta. No retroperitoneal or pelvic lymp hadenopathy. Multiple large uterine masses consistent with fibroids. The bladder is unremarkable. Mil d pelvic floor collapse. Mild body wall edema. Fluid-filled loops of large or small bowel seen throug hout the abdomen. There is mild distention of the colon. This could represent an ileus or gastroenter itis/diarrheal illness. No evidence for a bowel obstruction. Partially calcified hypodense lesion wit hin the appendix best seen on image 255 measuring 3.9 cm. This is consistent with a mucocele. IMPRESSION: 1. Interval progression of the paravertebral abnormality centered at the T8-T9 level with a left para vertebral phlegmon/developing abscess. There is evidence for epidural extension with moderate narrowi ng of the thecal sac. Therefore, this could represent an epidural abscess or mass. Dedicated thoracic spine MRI is recommended for further evaluation. 2. Small focus of bony destruction within the left side of the T9 vertebral body consistent with an o steomyelitis. There may be associated discitis at the T8-T9 level. 3. Small left pleural effusion. 4. Small pericardial effusion with mild enhancement of the pericardium which may represent a mild per icarditis. 5. 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 Nonemergent surgical consultation recommended for removal. 6. Fibroid uterus. 7. Mildly distended and fluid-filled colon. This could be due to an ileus or diarrhea illness/gastroe nteritis. 8. Additional findings as described above. ACT 112: Negative or not required by law. Electronically signed by: Frankie Peña M.D. 04/18/2024 1:35 PM
--- NOTE | 2024-04-18 13:41 | CT Scan Report ---
CT OF THE CERVICAL SPINE WITHOUT CONTRAST CLINICAL HISTORY: Neck pain. COMPARISON STUDY: No previous studies for comparison. TECHNIQUE: Helical axial images of the cervical spine were obtained without IV contrast. Sagittal a nd coronal reconstructions were viewed. Automated exposure control was utilized for the study. A do se lowering technique was utilized adhering to the principles of ALARA. FINDINGS: Alignment of the cervical spine is anatomic. Vertebral body heights are maintained. No acut e cervical spine fracture or subluxation is present. There is no prevertebral edema. Facet joints are intact. There is mild multilevel disc space narrowing and osteophytosis of the facet arthrosis with in the cervical spine. Central canal and neural foramen are suboptimally assessed given CT technique. A small amount of fluid within the right mastoid air cells is present. IMPRESSION: 1. No acute cervical spine fracture or subluxation. 2. Mild multilevel degenerative disc disease and facet arthrosis within the cervical spine. ACT 112: Negative or not required by law. Electronically signed by: Edwin Spring M.D. 04/18/2024 1:39 PM
--- NOTE | 2024-04-18 13:45 | CT Scan Report ---
CT OF THE NECK WITH IV CONTRAST CLINICAL HISTORY: [id number] pain, ?lympho/Infect COMPARISON STUDY: No previous studies for comparison. TECHNIQUE: Following IV administration of 94 mL of Optiray, helical axial images of the neck were ob tained. Sagittal and coronal reconstructions were viewed. Automated exposure control was utilized f or the study. A dose lowering technique was utilized adhering to the principles of ALARA. FINDINGS: There is a small amount of fluid within the right mastoid air cells. The sinuses are clear . The parotid and submandibular glands are unremarkable. The epiglottis is normal. No prevertebral ed vlad edema. There are no fluid collection within the neck. Major vasculature of the neck is patent. No cervical lymphadenopathy. No mucosal lesions are identified. Mild multilevel degenerative disc disea se and facet arthrosis within the cervical spine is present. A small left pleural effusion is partial ly imaged. The chest CT will be reported separately. IMPRESSION: 1. No acute process within the neck. 2. No cervical lymphadenopathy or masses. 3. Small left pleural effusion, better depicted on the chest CT which will be reported separately. ACT 112: Negative or not required by law. Electronically signed by: Edwin Spring M.D. 04/18/2024 1:43 PM
[2024-04-18 13:47] LABS: Adenovirus PCR Not Detected (NotDetected); Bordetella parapertussis PCR Not Detected (NotDetected); Bordetella pertussis PCR Not Detected (NotDetected); Chlamydia pneumoniae PCR Not Detected (NotDetected); Coronavirus 229E PCR Not Detected (NotDetected); Coronavirus CoV-2 (COVID19)PCR Not Detected (NotDetected); Coronavirus HKU1 PCR Not Detected (NotDetected); Coronavirus NL63 PCR Not Detected (NotDetected); Coronavirus OC43PCR Not Detected (NotDetected); Human Metapneumovirus PCR Not Detected (NotDetected); Influenza A PCR Not Detected (NotDetected); Influenza B PCR Not Detected (NotDetected); Mycoplasma pneumoniae PCR Not Detected (NotDetected); Parainfluenza Virus 1 PCR Not Detected (NotDetected); Parainfluenza Virus 2 PCR Not Detected (NotDetected); Parainfluenza Virus 3 PCR Not Detected (NotDetected); Parainfluenza Virus 4 PCR Not Detected (NotDetected); Respiratory Syncytial VirusPCR Not Detected (NotDetected); Rhinovirus/Enterovirus PCR Not Detected (NotDetected)
[2024-04-18] MEDS: CEFEPIME 2,000 MG/20 ML VIAL IV STA (15:37)
[2024-04-18] MEDS ORDERED: VANCOMYCIN CONSULT ACTIVE PRN (15:44)
[2024-04-18] MEDS: metroNIDAZOLE 500 MG/100 ML BAG IV STA (15:45)
--- NOTE | 2024-04-18 16:42 | Emergency Department Note ---
ED Visit Note I received signout from Dr. Rae. 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 The patient was not well-appearing in the office and thus was referred here. At the time of evaluation here in the department the patient did have concerning findings that may show possible developing discitis osteomy elitis or even epidural abscess T8-T9. Patient also with small left pleural and small pericardial effusion. Could have an associated mild pericarditis. Patient did have an elevated white blood cell count. The patient was started on vancomycin Flagyl and cefepime. Patient was discussed with the transfer center at [facility] with Dr. Robles their triage physician in order to get acceptance for the patient. Patient does have transaminitis and associated sodium 121. The patient did receive 2 L of IV fluids and was started on maintenance as well. .
[2024-04-18] MEDS: VANCOMYCIN HCL 1,750 MG in SODIUM CHLORIDE 0.9% 500 ML IV ONE (16:59)
[2024-04-18] MEDS ORDERED: MoRPHine SULFATE 4 MG/ML 1 ML CARP\\VIAL IV PRN (17:00)
[2024-04-18] MEDS ORDERED: ONDANSETRON INJ 2 MG/ML 2 ML VIAL IV PRN ×2 (17:00→20:54)
--- NOTE | 2024-04-18 17:19 | CT Scan Report ---
CT SCAN OF THE LUMBAR SPINE WITH IV CONTRAST CLINICAL HISTORY: Back pain. Leg pain. COMPARISON STUDY: Abdominal CT performed concurrently on 04/18/[address] dated 04/15/2024. TECHNIQUE: Following the IV administration of 94 cc of Optiray 320, CT scan of the lumbar spine was p erformed from the lower thoracic spine to the sacrum. Images are reviewed in the axial, sagittal, and coronal planes. IV contrast was administered without complication. A dose lowering technique was uti lized adhering to the principles of ALARA. CT DOSE: 2908.14 mGy.cm FINDINGS: The skeletal structures are well-mineralized. There is no evidence of fracture or malalignm ent involving the lumbar spine. Vertebral body height and alignment are maintained. The transverse an d spinous processes are intact. There is no spondylolysis. No lytic or blastic lesion is seen. Tiny a nterior and lateral marginal osteophytes are seen throughout. No lytic or blastic lesion is identifie d. There is mild degenerative disc space narrowing, greatest at L2-L3 and L3-L4. There is no CT evide nce of large disc herniation or central canal stenosis. The lumbar paraspinous soft tissues are ganga l in appearance. A left pleural effusion is partially imaged. No retroperitoneal lymphadenopathy is s een. 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 Uterine mass lesions are partially imaged and typical for fibroids. IMPRESSION: 1. No acute bony abnormality is seen involving the lumbar spine. 2. 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 3. A left pleural effusion is partially imaged. 4. Additional findings as above. ACT 112: Negative or not required by law. Dictated: 04/18/2024 12:52 PM Transcribed: 04/18/2024 1:22 PM Sarah [id number] [email or web address] [id number] Electronically signed by: Guillermo Eldridge M.D. 04/18/2024 5:17 PM
--- NOTE | 2024-04-18 19:01 | History & Physical Report ---
Date of Service April 18, 2024 Assessment & Plan (1) Hyponatremia: (2) Transaminitis: (3) Pericardial effusion: (4) Vertebral abscess: (5) Osteomyelitis of thoracic vertebra: (6) Sepsis: (7) Abdominal pain: Plan 54 y/o female with no past medical history here due to progressive abdominal pain, abdominal pain , and back pain. Found with findings osteomyelitis, even epidural abscess T8-T9. Vertebral abscess (T8-T9) Osteomyelitis(T9) Meningitis - Admit to PCU. 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 Pending bed availability - Patient with progressed symptoms: headaches, stiff neck, ambulatory disfunction and back pain. - Fever of 38.0 C, tachycardia - WBC 26.8 ESR: 78, Procal 2.24H - Lactate 1.3 - CT thoracic: Interval progression of the paravertebral abnormality centered at the T8-T9 level with a left paravertebral phlegmon/developing abscess.. There is evidence for epidural extension with moderate narrowing of the thecal sac. There is a small focus of cortical erosion along the left superior osteophyte of T9 - Neck Ct: No acute cervical spinal fracture - [facility] reached out by ED provider which recommended transfer due to complexity of case. Continue Abx - Concern of infections process - Blood culture pending - Tick born workup pending - IV Vancomycin, IV Zosyn and IV Cefepime - IV Tylenol for fever - CBC am Fecal impaction with mild abdominal distention - Increased abdominal pain and bloating. Passing gasses. No vomiting - CT abdomen: 3.9 cm mucocele of the appendix. Nonemergent surgical consultation recommended for removal., Mildly distended and fluid-filled colon. This could be due to an ileus or diarrhea illness/gastroenteritis. - Continue NPO - Will hold stool softeners for now given infectious process - If vomiting consider NG tube Hyponatremia: - Na: 121 L (11 am) - s/p 2 L of Normal saline ED - Goal of 6-12 mEq in the first 24 hrs - Last Na: 128- at 6 pm - s/p NSS maintenance - D5W: 80 ml/hr to slow down rate of correction - BMP q6hr Small pulmonary effusion - Sat at 94 on room air - May be secondary to current infectious process - continue to monitor DVT prophylaxis: SCDs Diet : NPO for possible surgical intervention Disposition : PCU, pending transfer to [facility] [place] History of Present Illness Primary Care Provider: Juani GoodrichDO Ellis is a 54 y/o female with no past medical history here due to progressive abdominal pain, abdominal pain , and back pain. Symptoms started 3 days ago with abdominal pain and back pain. She was seen 3 days ago in the ED where she was found with significant fecal impaction and a CT abdomen with a 4cm partially calcified mucocele in her appendix. She was seen by General surgery outpatient today where she was found with worsening back pain and ambulatory dysfunction. Additionally, description of abnormal rind of soft tissue involving the partia lly imaged lower thoracic vertebral bodies was noted and was greatest at T9 and appeared to be contiguous with the pleural-based soft tissue thickening in the left lung. Thoracic CT today showed progression on prior thoracic findings including paravertebral abnormality centered at T8-T9 with left paravertebral phlegmon/developing abscess. Additionally, there is a epidural extension with moderate narrowing of the thecal sac that could represent epidural abscess or mass and small focus of bony destruction with the left side of the T9 vertebral body is consistent with osteomyelitis. There may be associated discitis at the T8-T9 level as well. On my exam patient was found resting comfortable, easily awake. She refers progressive abdominal pain and back pain in the past 3 days. 2 days ago she noted some ambulatory disturbances. She refers she had been taking Miralax as prev recommended and had been having loose bowel movements. She denied any fevers or chills, but she does refers being feeling cool in the last couple days. She refers some neck stiffness and when she bends her neck forward she feels pain go down her back into her legs. Denied any nausea or vomiting. She refers passing gasses and burping. Denied any smoking, drinking alcohol or IV drug abuse. Denied any trauma in her back. No chest pain, palpitation or SOB. she refers having decreased PO intake as well. ED provided reached out to [facility], ( not subcontract administrator) which recommended IV antibiotics as well as transferred to tertiary center for further management (possible surgery, or IR intervention) in the setting of complex characteristics. [facility] [place]. Cased accepted by Dr. Mo. Hospitalist team was consulted for admission until bed is assigned and transferred arranged. ED course:. CT of the head, CT L-spine, soft tissue neck, chest and abdomen pelvis were obtained. IV Abx was started: Vancomycin, Flagyl and Cefepime. EKG sinus rythm, tachycardic, no signs or ischemia. CXR: left pleural effusion. Patient found with WBC 28.6, lactate 1.3, procalcitonin 2.2, Chemistry: Sodium at 121 Serum osmolality 257, urine osmolality 384, and urine sodium <10. LFTs demonstrate transaminitis with total bilirubin 1.7, AST 69 and ALT 64 with alk phos 206. HS troponin 41.3. Allergies Allergy/AdvReac Type Severity Reaction Status Date / Time No Known Allergies Allergy Verified 04/18/24 21:37 Home Medications Medication Instructions Recorded Confirmed Type No Known Home Medications 04/18/24 04/18/24 History Past Med/Surg History Problem List (Updated 04/18/24 @ 17:23 by Alejandro Rae MD) Transaminitis (Acute) Hyponatremia (Acute) Pericardial effusion (Acute) Pleural effusion on left (Acute) Vertebral abscess (Acute) Osteomyelitis of thoracic vertebra (Acute) Discitis thoracic region (Acute) Sepsis (Acute) Back pain Back problem Abnormal CT of thoracic spine (Acute) Mucocele of appendix (Acute) Abdominal pain (Acute) Surgical History History of wisdom tooth extraction Family History Other Adopted Social History Smoking Status: Never smoker Hx Alcohol Use: No Hx Substance Use: No Preferred Language: Romansh Communication Ability: Effective 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 Beliefs That Will Affect Care: None marital status: Single Current Living Situation: Alone current occupational status: employed 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[employer], 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 How many Children do You have: 0 Feels Safe at Home: Yes Safety Concerns: Feels Safe At This Time Diet: regular during the past year weight has: remained stable Review of Systems Review of Systems: as per HPI Physical Exam Constitutional: well developed; no acute distress Respiratory: normal respiratory effort; no respiratory distress Auscultation: + crackles (mild/ right lower lung) Cardiovascular: RRR, no murmur, no edema Gastrointestinal (Abdomen): Inspection/Auscultation: + abdomen distended and normal bowel sounds Percussion/Palpation: + abdomen firm; abdomen nontender and no guarding Neurologic: Speech / Cognition: normal speech Motor/Sensory: no tremor Results & Data Results & Data Vital Signs (Past 12 Hours) Vital Signs Temp Pulse Pulse Resp BP BP Pulse Ox 04/18/24 18:00 36.8 C 92 H 24 109/77 94 04/18/24 16:00 36.5 C 95 H 24 105/76 94 04/18/24 13:49 128/85 04/18/24 13:30 102 H 24 94 04/18/24 13:30 106/67 04/18/24 13:22 113/75 04/18/24 13:15 101 H 26 H 93 04/18/24 13:09 98 H 28 H 94 04/18/24 13:07 101 H 04/18/24 10:57 36.5 C 129 H 18 117/75 92 O2 Del Method 04/18/24 18:00 Room Air 04/18/24 16:00 Room Air 04/18/24 13:49 04/18/24 13:30 04/18/24 13:30 04/18/24 13:22 04/18/24 13:15 04/18/24 13:09 04/18/24 13:07 04/18/24 10:57 Room Air Diagnostic Findings Chest X-Ray 04/18/24 11:24 XR chest 1V portable HISTORY: fever COMPARISON: None. FINDINGS: Small left pleural effusion and left basilar densities suggestive of atelectasis. No pneumothorax. The heart is mildly enlarged. The right lung is clear. No evidence for pulmonary edema. No acute fractures. IMPRESSION: 1. Small left pleural effusion. 2. Left basilar densities favor atelectasis. 3. Mild cardiomegaly. ACT 112: Negative or not required by law. Electronically signed by: Frankie Peña M.D. 04/18/2024 1:26 PM Abdomen/Pelvis CT 04/18/24 11:[address] WITH IV CONTRAST CT DOSE: HISTORY: AP, bloating, [id number] pain, ?lympho/Infect TECHNIQUE: Multiaxial CT images of the abdomen and pelvis were performed following the use of intravenous contrast. A dose lowering technique was utilized adhering to the principles of ALARA. COMPARISON STUDY: Abdomen and pelvis CT 04/15/2024. FINDINGS: Please refer to the dedicated chest CT and thoracic spine CT performed same day for further evaluation of the paravertebral abnormality at the T8-T9 level. There appears to be epidural extension of the paravertebral abnormality at the T8-T9 level with moderate narrowing of the thecal sac best seen on image 50. The punctate focus of gas posterior to the T10 vertebral body. Therefore, this could represent an epidural abscess. A paravertebral soft tissue mass also remains in the differential diagnosis. Small foci of gas along the left side of the paravertebral T8-T9 level is again noted suggestive of a paravertebral abscess/phlegmon. Small focus of bone erosion within the left side of the T9 vertebral body is also noted. Small left pleural effusion. No pneumoperitoneum. No pneumatosis. The heart is enlarged. Mild pericardial enhancement with a small pericardial effusion. A 7 mm hypodense lesion within the periphery the right hepatic lobe remain stable. This favors a cyst. The gallbladder, pancreas, spleen, and adrenal glands are unremarkable. The kidneys enhance normally. No hydronephrosis. The main portal vein is patent. Normal caliber abdominal aorta. No retroperitoneal or pelvic lymphadenopathy. Multiple large uterine masses consistent with fibroids. The bladder is unremarkable. Mild pelvic floor c ollapse. Mild body wall edema. Fluid-filled loops of large or small bowel seen throughout the abdomen. There is mild distention of the colon. This could represent an ileus or gastroenteritis/diarrheal illness. No evidence for a bowel obstruction. Partially calcified hypodense lesion within the appendix best seen on image 255 measuring 3.9 cm. This is consistent with a mucocele. IMPRESSION: 1. Interval progression of the paravertebral abnormality centered at the T8-T9 level with a left paravertebral phlegmon/developing abscess. There is evidence for epidural extension with moderate narrowing of the thecal sac. Therefore, this could represent an epidural abscess or mass. Dedicated thoracic spine MRI is recommended for further evaluation. 2. Small focus of bony destruction within the left side of the T9 vertebral body consistent with an osteomyelitis. There may be associated discitis at the T8-T9 level. 3. Small left pleural effusion. 4. Small pericardial effusion with mild enhancement of the pericardium which may represent a mild pericarditis. 5. 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 Nonemergent surgical consultation recommended for removal. 6. Fibroid uterus. 7. Mildly distended and fluid-filled colon. This could be due to an ileus or diarrhea illness/gastroenteritis. 8. Additional findings as described above. ACT 112: Negative or not required by law. Electronically signed by: Frankie Peña M.D. 04/18/2024 1:[address] 04/18/24 11:37 CT OF THE CERVICAL SPINE WITHOUT CONTRAST CLINICAL HISTORY: Neck pain. COMPARISON STUDY: No previous studies for comparison. TECHNIQUE: Helical axial images of the cervical spine were obtained without IV contrast. Sagittal and coronal reconstructions were viewed. Automated exposure control was utilized for the study. A dose lowering technique was utilized adhering to the principles of ALARA. FINDINGS: Alignment of the cervical spine is anatomic. Vertebral body heights are maintained. No acute cervical spine fracture or subluxation is present. There is no prevertebral edema. Facet joints are intact. There is mild multilevel disc space narrowing and osteophytosis of the facet arthrosis within the cervical spine. Central canal and neural foramen are suboptimally assessed given CT technique. A small amount of fluid within the right mastoid air cells is present. IMPRESSION: 1. No acute cervical spine fracture or subluxation. 2. Mild multilevel degenerative disc disease and facet arthrosis within the cervical spine. ACT 112: Negative or not required by law. Electronically signed by: Edwin Spring M.D. 04/18/2024 1:[address] 04/18/24 11:[address] WITH CONTRAST CT DOSE: HISTORY: [id number] pain, ?lympho/Infect TECHNIQUE: Multiaxial CT images of the chest were performed following the intravenous administration of contrast. A dose lowering technique was utilized adhering to the principles of ALARA. COMPARISON: Abdomen and pelvis CT 04/15/2024. FINDINGS: Paravertebral edema at the T8-T9 level with a few small foci of left paravertebral soft tissue gas are again noted and are better appreciated on the same day thoracic spine CT. Small focal erosion at the left superior endplate of T9 best in image 149. The small foci of the left paravertebral gas are consistent with a developing abscess/phlegmon. There is a small left pleural effusion. Subcentimeter mediastinal and hilar lymph nodes do not meet CT criteria for pathologic involvement. Dominant superior mediastinal lymph node on image 21 measures 8 mm. Small pericardial effusion with mild enhancement of the pericardium. This could represent a mild pericarditis. The heart is mildly enlarged. Mild circumferential thickening of the mid to distal esophagus which could be reactive to the paravertebral abnormality. There is a punctate focus of gas posterior to the T10 vertebral body within the anterior epidural space. The abdominal structures will be reported on the same day abdomen and pelvis CT. The main pulmonary artery is dilated up to 3 cm consistent with mild pulmonary arterial hypertension. Otherwise, the central airways are patent. There is mild body wall edema. No pneumothorax. The central airways are patent. Bibasilar linear densities favor subsegmental atelectasis. Focal consolidation within the base of the left lower lobe favors compressive atelectasis from the small left pleural effusion. IMPRESSION: 1. Paravertebral abnormality centered at the T8-T9 level is better appreciated on the same day thoracic spine CT. There are few small foci of gas within the left paravertebral space at this location which suggests a phlegmon/developing abscess. There is also a small focus of bony erosion at the left superior osteophyte of T9 consistent with osteomyelitis. Dedicated MRI of the thoracic spine is recommended for further evaluation. 2. The punctate focus of gas posterior to the T10 vertebral body which is indeterminate. Attention at follow-up recommended. 3. Small left pleural effusion. 4. Small pericardial effusion with mild enhancement of the pericardium. This could represent a mild pericarditis. 5. No significant lymphadenopathy identified. 6. Circumferential thickening within the mid to distal esophagus. This could be reactive to the paravertebral abnormality. 7. Additional findings as described above. ACT 112: Negative or not required by law. Electronically signed by: Frankie Peña M.D. 04/18/2024 1:[address] 04/18/24 11:37 CT SCAN OF THE BRAIN WITHOUT IV CONTRAST CLINICAL HISTORY: Neck pain. COMPARISON STUDY: No priors. TECHNIQUE: Unenhanced axial CT scan of the brain is performed from the vertex to the skull base. A dose lowering technique was utilized adhering to the principles of ALARA. FINDINGS: Brain parenchyma: The brain parenchyma is normal in appearance. There is no hemorrhage, mass effect, or evidence of acute territorial ischemia by CT criteria. Mejias-white matter differentiation is preserved. No extra-axial fluid collection is seen. Ventricles, sulci, cisterns: Normal in configuration. Intracranial vasculature: The visualized intracranial vasculature at the skull base is normal in appearance. Calvarium: Unremarkable. Sinuses and mastoids: The visualized paranasal sinuses are clear. There is a right mastoid effusion. The left mastoid air cells are well pneumatized. Orbits: The bony orbits are grossly intact. IMPRESSION: No acute intracranial abnormality. ACT 112: Negative or not required by law. Electronically signed by: Guillermo Eldridge M.D. 04/18/2024 12:[address] 04/18/24 11:37 CT SCAN OF THE LUMBAR SPINE WITH IV CONTRAST CLINICAL HISTORY: Back pain. Leg pain. COMPARISON STUDY: Abdominal CT performed concurrently on 04/18/[address] dated 04/15/2024. TECHNIQUE: Following the IV administration of 94 cc of Optiray 320, CT scan of the lumbar spine was performed from the lower thoracic spine to the sacrum. Images are reviewed in the axial, sagittal, and coronal planes. IV contrast was administered without complication. A dose lowering technique was utilized adhering to the principles of ALARA. CT DOSE: 2908.14 mGy.cm FINDINGS: The skeletal structures are well-mineralized. There is no evidence of fracture or malalignment involving the lumbar spine. Vertebral body height and alignment are maintained. The transverse and spinous processes are intact. There is no spondylolysis. No lytic or blastic lesion is seen. Tiny anterior and lateral marginal osteophytes are seen throughout. No lytic or blastic lesion is identified. There is mild degenerative disc space narrowing, greatest at L2-L3 and L3-L4. There is no CT evidence of large disc herniation or central canal stenosis. The lumbar paraspinous soft tissues are normal in appearance. A left pleural effusion is partially imaged. No retroperitoneal lymphadenopathy is seen. 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 Uterine mass lesions are partially imaged and typical for fibroids. IMPRESSION: 1. No acute bony abnormality is seen involving the lumbar spine. 2. 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 3. A left pleural effusion is partially imaged. 4. Additional findings as above. ACT 112: Negative or not required by law. Dictated: 04/18/2024 12:52 PM Transcribed: 04/18/2024 1:22 PM Sarah [id number] Charlene [id number] Electronically signed by: Guillermo Eldridge M.D. 04/18/2024 5:[address] 04/18/24 11:37 CT OF THE NECK WITH IV CONTRAST CLINICAL HISTORY: [id number] pain, ?lympho/Infect COMPARISON STUDY: No previous studies for comparison. TECHNIQUE: Following IV administration of 94 mL of Optiray, helical axial images of the neck were obtained. Sagittal and coronal reconstructions were viewed. Automated exposure control was utilized for the study. A dose lowering technique was utilized adhering to the principles of ALARA. FINDINGS: There is a small amount of fluid within the right mastoid air cells. The sinuses are clear. The parotid and submandibular glands are unremarkable. The epiglottis is normal. No prevertebral edema edema. There are no fluid collection within the neck. Major vasculature of the neck is patent. No cervical lymphadenopathy. No mucosal lesions are identified. Mild multilevel degenerative disc disease and facet arthrosis within the cervical spine is present. A small left pleural effusion is partially imaged. The chest CT will be reported separately. IMPRESSION: 1. No acute process within the neck. 2. No cervical lymphadenopathy or masses. 3. Small left pleural effusion, better depicted on the chest CT which will be reported separately. ACT 112: Negative or not required by law. Electronically signed by: Edwin Spring M.D. 04/18/2024 1:[address] 04/18/24 11:37 CT thoracic spine w con CT DOSE: CLINICAL HISTORY: [id number] pain, ?lympho/Infect TECHNIQUE: Multiaxial CT images of the thoracic spine were performed following the intravenous administration of contrast and reformatted in the sagittal and coronal planes. A dose lowering technique was utilized adhering to the principles of ALARA. COMPARISON STUDY: Abdomen and pelvis CT 04/15/2024. FINDINGS: There is abnormal paravertebral soft tissue swelling centered at the T8-T9 level with a few small foci of paravertebral soft tissue gas along the left side of the T8-T9 level. Therefore, this likely represents underlying paravertebral infection with developing abscess/phlegmon. There is a small focus of cortical erosion along the left superior osteophyte of T9 best seen on coronal image 46. However, the disc space is preserved without significant endplate destruction. Therefore, these findings favor a paravertebral infection with secondary involvement of the T9 vertebral body consistent with an osteomyelitis. A discitis/osteomyelitis at the T8-T9 level also remains in the differential diagnosis given the surrounding paravertebral edema. There is a small left pleural effusion. No significant central canal narrowing by CT technique. No fracture or subluxation within the thoracic spine. IMPRESSION: 1. Abnormal paravertebral soft tissue swelling centered at the T8-T9 level which has progressed in the interval with a few small foci of left paravertebral gas at this location. Therefore, this is consistent with a paravertebral infection with developing abscess/phlegmon. 2. . There is a small focus of cortical erosion along the left superior osteophyte of T9 as described above. However, the disc space is preserved without significant endplate destruction. Therefore, these findings favor a paravertebral infection with secondary involvement of the T9 vertebral body consistent with an osteomyelitis. A discitis/osteomyelitis at the T8-T9 level also remains in the differential diagnosis given the surrounding paravertebral edema. ACT 112: Negative or not required by law. Electronically signed by: Frankie Peña M.D. 04/18/2024 1:16 PM Code Status & VTE Plan VTE Prophylaxis Plan VTE Prophylaxis will be ordered: Yes Supervising Physician Co-Signing Physician Notes I personally saw and examined the patient. I independently reviewed the labs, EKG, imaging, problem list, medication list, past medical history and family history. I verified all hollingsworth points and agree with resident physician Dr Marco Boudreaux, with the following exceptions and/or additions: 54 year old female sent to the ER from general surgery clinic due to progressive back pain and neck pain making it difficult for her to walk. Having liquid stools. Seen in the ER 3 days ago and referred to surgery due to mucocele. No headache or neck stiffness. O/E A&Ox3, HS increased rate, regular rhythm, no murmurs, Chest CTAB, Abdo SNT, no extremity weakness or change in sensation, central thoracic and cervical pain on exam A/P Sepsis - secondary to osteomyelitis/discitis T8-9 with developing abscess. Blood cultures x2. Empiric vanc/cefepime/metronidazole. Patient will need MRI, ortho spine, ID, possible TTE however since she has a pending bed at [facility] will defer this currently. Hyponatremia - already improved to 128 with NSS. Lactate 1.3. D5W to slow down sodium ride lead to worsening pleural effusion. Will hold off further IV fluids at this time and give bolus fluids overnight to help with BP. Resident Activity Tracking Resident Involvement: Resident Care Provided Care Provided: Adult Hospital Medicine (6) Sepsis Sepsis acute organ dysfunction status: unspecified Sepsis type: sepsis due to unspecified organism Qualified Code(s): A41.9 - Sepsis, unspecified organism
[2024-04-18] MEDS: DEXTROSE 5% 1,000 ML IV SCH (20:46)
[2024-04-18] MEDS ORDERED: ACETAMINOPHEN 325 MG TAB PO PRN (20:54)
[2024-04-18] MEDS: ACETAMINOPHEN 1000 MG/100 ML IV IV ONE (21:32)
[2024-04-18] MEDS: Patient's ALLERGY Info needs ENTERED SCH (21:58)
[2024-04-18] MEDS: ALBUMIN 5% 250 ML IV ONE (23:05)
[2024-04-19] MEDS: CEFEPIME 20 ML IV SCH (00:56)
[2024-04-19] MEDS: metroNIDAZOLE 500 MG/100 ML BAG IV SCH (00:57)
[2024-04-19 01:22] LABS: BUN Creatinine Ratio 15.9 (10-20); Calcium 7.5 mg/dl (8.6-10.3); Creatinine Clr Calc Pharmacy 92.8 ml/min; Est GFR (African American) 116.2 ml/min; Est GFR (Non-African American) 100.3 ml/min; Potassium 3.8 mmol/L (3.5-5.1)
[2024-04-19] MEDS: VANCOMYCIN HCL 750 MG in SODIUM CHLORIDE 0.9% 250 ML IV SCH (05:00)
[2024-04-19 05:11] LABS: A calco-baum cmplx NotReported Not Detected (NotDetected); Bact fragilis Not Reported Not Detected (NotDetected); Blood Culture Id Panel See PCR Comment (NotDetected); C auris Not Reported Not Detected (NotDetected); Calbicans Not Reported Not Detected (NotDetected); Candida glabrata Not Reported Not Detected (NotDetected); Candida krusei Not Reported Not Detected (NotDetected); Cneoformans/gatti Not Reported Not Detected (NotDetected); Cparapsilosis Not Reported Not Detected (NotDetected); E cloacae compx Not Reported Not Detected (NotDetected); Efaecalis Not Reported Not Detected (NotDetected); Efaecium Not Reported Not Detected (NotDetected); Enterobacterales Not Reported Not Detected (NotDetected); Escherichia coli Not Reported Not Detected (NotDetected); H influenzae Not Reported Not Detected (NotDetected); K aerogenes Not Reported Not Detected (NotDetected); Koxytoca Not Reported Not Detected (NotDetected); Kpneumoniae grp Not Reported Not Detected (NotDetected); Lmonocyt Not Reported Not Detected (NotDetected); N meningitidis Not Reported Not Detected (NotDetected); P aeruginosa Not Reported Not Detected (NotDetected); Proteus spp Not Reported Not Detected (NotDetected); Salmonella spp Not Reported Not Detected (NotDetected); Staph lugdunensis Not Reported Not Detected (NotDetected); Staph spp. Not Reported DETECTED (NotDetected); Staphaureus Not Reported DETECTED (NotDetected); Staphepi Not Reported Not Detected (NotDetected); Staphylococcus spp. DETECTED (NotDetected); Stenmaltophilia Not Reported Not Detected (NotDetected); Strep agal(GrpB) Not Reported Not Detected (NotDetected); Strep pneum Not Reported Not Detected (NotDetected); Strep pyog (GrpA) Not Reported Not Detected (NotDetected); Strep spp Not Reported Not Detected (NotDetected); mecAC+MREJ Resistant Gene MRSA Not Detected (NotDetected)
[2024-04-19] MEDS: ACETAMINOPHEN 1,000 MG/100 ML VIAL IV PRN (06:17)
[2024-04-19 06:33] LABS: Hematocrit (blood only) 29.7 % (37.0-47.0); Hemoglobin 10.8 g/dl (12.0-16.0); Mean Corpuscular Hgb Conc 36.4 g/dL (32.0-36.0); Mean Corpuscular Volume 82.5 fL (80.0-100.0); Mean Platelet Volume 11.1 fL (9.4-12.4); Platelet Count 188 K/uL (130-400); RDW Coefficient of Variation 14.4 % (11.5-14.5); RDW Standard Deviation 43.5 fL (36.4-46.3); White Blood Count 20.56 K/ul (4.8-10.8)
[2024-04-19 06:37] LABS: INR 1.1 (0.9-1.1); Prothrombin Time 11.9 Seconds (9.0-12.0)
[2024-04-19 06:51] LABS: Albumin Globulin Ratio 1.1 (0.9-2); Albumin Level 2.8 gm/dl (3.4-5.0); BUN Creatinine Ratio 17.5 (10-20); Bilirubin,Total 1.5 mg/dl (0.2-1.0); Calcium 7.6 mg/dl (8.6-10.3); Creatinine Clr Calc Pharmacy 102.5 ml/min; Est GFR (African American) 120.1 ml/min; Est GFR (Non-African American) 103.6 ml/min; Globulin 2.5 gm/dl (2.5-4.0); Potassium 3.7 mmol/L (3.5-5.1); Total Protein 5.3 gm/dl (6.0-8.3)
[2024-04-19 06:55] LABS: Basophils # (auto) 0.07 K/uL (0.00-0.20); Basophils % (auto) 0.3 %; Eosinophils # (auto) 0.02 K/uL (0.00-0.50); Eosinophils % (auto) 0.1 %; Immature Granulocytes # (auto) 0.84 K/uL (0.01-0.20); Immature Granulocytes % (auto) 4.1 %; Lymphocytes # (auto) 0.84 K/uL (1.20-3.40); Lymphocytes % (auto) 4.1 %; Monocytes % (auto) 7.3 %; Neutrophils # (auto) 17.29 K/uL (1.40-6.50); Neutrophils % (auto) 84.1 %; RBC Morphology Unremarkable
--- NOTE | 2024-04-19 07:02 | Hospitalist Progress Note ---
Date of Service April 19, 2024 Assessment & Plan (1) Hyponatremia: (2) Transaminitis: (3) Pericardial effusion: (4) Vertebral abscess: (5) Osteomyelitis of thoracic vertebra: (6) Sepsis: (7) Abdominal pain: Plan 1) Vertebral abscess (T8-T9)/ Osteomyelitis(T9)/ Meningitis - Admitted to PCU. Patient accepted at [facility] for further manager analysis. Pending bed availability - Patient with progressed symptoms: headaches, stiff neck, ambulatory disfunction and back pain. - Fever of 38.0 C, tachycardia - WBC 26.8 ESR: 78, Procal 2.24H Lactate 1.3 - CT-thoracic: Interval progression of the paravertebral abnormality centered at the T8-T9 level with a left paravertebral phlegmon/developing abscess.. There is evidence for epidural extension with moderate narrowing of the thecal sac. There is a small focus of cortical erosion along the left superior osteophyte of T9 - Neck Ct: No acute cervical spinal fracture - [facility] reached out by ED provider which recommended transfer due to complexity of case. - Blood culture --> Gram positive cocci, clusters (likely Staphylococcus) for both cultures - PCR blood --> positive for S. 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 Nonemergent surgical consultation recommended for removal., Mildly distended and fluid-filled colon. This could be due to an ileus or diarrhea illness/gastroenteritis. - Continue NPO, if vomiting consider NG tube - Will hold stool softeners for now given infectious process 3) Hyponatremia - Na, 134 <-- 131 <-- 121 L (11 am) - s/p 2 L of Normal saline ED, s/p NSS maintenance - Goal of 8 mEq in the first 24 hrs - D5W: 80 ml/hr to slow down rate of correction - BMP q6hr 4) Small pulmonary effusion - O2Sat, 94, on room air - May be secondary to current infectious process - continue to monitor Code status: Full code DVT prophylaxis: SCDs Diet : NPO for possible surgical intervention Disposition : PCU, pending transfer to [facility] pending bed Admission and Anticipated Discharge Date Admission Date: April 18, 2024 Subjective I saw the patient this morning and she was feeling better than the day prior. She continues to have some diffuse abdominal pain, mild-moderate neck pain and stiffness, and pain in her mid-lower back along the spine. Patient denies any F/C/N/V this morning but states she felt feverish overnight. Of note, objectively patient has been running a fever off and on since admission. Patient has not been following with anyone for her primary care needs and is on no fdc medications nor is being treated for any fdc medical conditions. No calf pain, no chest pain, nor shortness of breath. Review of Systems Constitutional: + fatigue; no fever and no chills Respiratory: no cough, no chest congestion and no dyspnea Cardiovascular: no chest pain and no palpitations Gastrointestinal: + abdominal pain; no nausea and no vomit ing Genitourinary: no dysuria and no urinary frequency Musculoskeletal: + neck pain and + stiffness (neck stiffn ess) Physical Exam Constitutional: WD/WN, vitals as above Neck: + neck tender Respiratory: normal respiratory effort, lungs clear to auscultation normal respiratory effort and able to speak in complete sentences; no respiratory distress and does not use accessory muscles Auscultation: + crackles (crackles at base of lungs posteriorly) Cardiovascular: RRR, no murmur, no edema Gastrointestinal (Abdomen): Inspection/Auscultation: + abdomen distended and normal bowel sounds Percussion/Palpation: + tympanic to percussion and + abdomen firm; abdomen nontender Musculoskeletal: Head/Neck/Chest: normocephalic Skin: + wound (scabbed-over wound para-spinall y in thoraco area) Psychiatric: A+Ox3, euthymic affect Results & Data Results & Data Vital Signs (Past 12 Hours) Vital Signs Temp Pulse Pulse Resp BP BP Pulse Ox 04/19/24 05:42 38.0 C H 100 H 14 118/81 90 04/19/24 05:00 100 H 20 111/70 98 04/19/24 03:05 92 H 04/19/24 02:05 04/19/24 02:05 36.8 C 93 H 100/69 98 04/19/24 01:00 97 H 28 H 91 04/19/24 01:00 105/69 04/19/24 01:00 105/69 04/19/24 01:00 105/69 04/19/24 00:30 96 H 31 H 97 04/19/24 00:30 112/66 04/19/24 00:03 94 H 26 H 97 04/19/24 00:00 99/61 L 04/19/24 00:00 99/61 L 04/19/24 00:00 99/61 L 04/18/24 23:45 106/66 04/18/24 23:45 106/66 04/18/24 23:42 98 H 22 96 04/18/24 23:33 98 H 15 96 04/18/24 23:30 106/65 04/18/24 23:30 106/65 04/18/24 23:15 106/65 04/18/24 23:12 104 H 17 96 04/18/24 23:10 37.3 C 103 H 24 106/67 96 04/18/24 23:06 103 H 15 96 04/18/24 23:00 106/67 04/18/24 22:45 110/65 04/18/24 22:39 102 H 21 93 04/18/24 22:30 107 H 27 H 93 04/18/24 22:30 93/67 L 04/18/24 22:30 93/67 L 04/18/24 22:18 92/65 L 04/18/24 22:18 92/65 L 04/18/24 22:12 111 H 23 94 04/18/24 22:00 109 H 9 L 96 04/18/24 22:00 97/71 L 04/18/24 22:00 97/71 L 04/18/24 22:00 97/71 L 04/18/24 21:45 100 H 25 H 96 04/18/24 21:30 99 H 28 H 96 04/18/24 21:30 123/83 04/18/24 21:30 123/83 04/18/24 21:21 101 H 28 H 94 04/18/24 21:13 04/18/24 21:13 38.0 C H 101 H 25 H 134/76 89 L 04/18/24 21:00 134/76 04/18/24 21:00 134/76 04/18/24 20:30 134/81 04/18/24 20:30 134/81 04/18/24 20:30 134/81 04/18/24 20:00 131/88 04/18/24 20:00 131/88 04/18/24 19:37 147/85 H 04/18/24 19:37 147/85 H Pulse Ox O2 Del Method O2 Del Method O2 Flow Rate O2 Flow Rate 04/19/24 05:42 Room Air 04/19/24 05:00 Nasal Cannula 2 04/19/24 03:05 04/19/24 02:05 Nasal Cannula 2 04/19/24 02:05 Nasal Cannula 2 04/19/24 01:00 Room Air 04/19/24 01:00 04/19/24 01:00 04/19/24 01:00 04/19/24 00:30 Nasal Cannula 2 04/19/24 00:30 04/19/24 00:03 04/19/24 00:00 04/19/24 00:00 04/19/24 00:00 04/18/24 23:45 04/18/24 23:45 04/18/24 23:42 04/18/24 23:33 04/18/24 23:30 04/18/24 23:30 04/18/24 23:15 04/18/24 23:12 04/18/24 23:10 Nasal Cannula 4 04/18/24 23:06 04/18/24 23:00 04/18/24 22:45 04/18/24 22:39 04/18/24 22:30 04/18/24 22:30 04/18/24 22:30 04/18/24 22:18 04/18/24 22:18 04/18/24 22:12 04/18/24 22:00 04/18/24 22:00 04/18/24 22:00 04/18/24 22:00 04/18/24 21:45 04/18/24 21:30 04/18/24 21:30 04/18/24 21:30 04/18/24 21:21 04/18/24 21:13 95 Nasal Cannula 4 04/18/24 21:13 04/18/24 21:00 04/18/24 21:00 04/18/24 20:30 04/18/24 20:30 04/18/24 20:30 04/18/24 20:00 04/18/24 20:00 04/18/24 19:37 04/18/24 19:37 Resident Activity Tracking Resident Involvement: Resident Care Provided Care Provided: Adult Hospital Medicine (6) Sepsis Sepsis acute organ dysfunction status: unspecified Sepsis type: sepsis due to unspecified organism Qualified Code(s): A41.9 - Sepsis, unspecified organism
--- NOTE | 2024-04-19 07:10 | XRay Report ---
XR chest 1V portable CLINICAL HISTORY: Hypoxia. COMPARISON STUDY: Chest radiograph and chest CT performed earlier today. FINDINGS: Elevation of the right hemidiaphragm has slightly increased. There is no pneumothorax. A sm all left pleural effusion persists. No evidence for pulmonary edema. There is no consolidation. Mild cardiomegaly is unchanged. IMPRESSION: 1. No significant change in a small left pleural effusion with mild left basilar opacity which favors atelectasis. 2. Slight increase in elevation of the right hemidiaphragm. ACT 112: Negative or not required by law. Electronically signed by: Edwin Spring M.D. 04/19/2024 7:09 AM
--- NOTE | 2024-04-19 07:20 | Discharge Summary ---
Date of Service April 20, 2024 Admission HPI Per Admitting Provider Rhonda is a 54 y/o female with no past medical history here due to progressive abdominal pain, abdominal pain , and back pain. Symptoms started 3 days ago with abdominal pain and back pain. She was seen 3 days ago in the ED where she was found with significant fecal impaction and a CT abdomen with a 4cm partially calcified mucocele in her appendix. She was seen by General surgery outpatient today where she was found with worsening back pain and ambulatory dysfunction. Additionally, description of abnormal rind of soft tissue involving the partially imaged lower thoracic vertebral bodies was noted and was greatest at T9 and appeared to be contiguous with the pleural-based soft tissue thickening in the left lung. Thoracic CT today showed progression on prior thoracic findings including paravertebral abnormality centered at T8-T9 with left paravertebral phlegmon/developing abscess. Additionally, there is a epidural extension with moderate narrowing of the thecal sac that could represent epidural abscess or mass and small focus of bony destruction with the left side of the T9 vertebral body is consistent with osteomyelitis. There may be associated discitis at the T8-T9 level as well. On my exam patient was found resting comfortable, easily awake. She refers progressive abdominal pain and back pain in the past 3 days. 2 days ago she noted some ambulatory disturbances. She refers she had been taking Miralax as prev recommended and had been having loose bowel movements. She denied any fevers or chills, but she does refers being feeling cool in the last couple days. She refers some neck stiffness and when she bends her neck forward she feels pain go down her back into her legs. Denied any nausea or vomiting. She refers passing gasses and burping. Denied any smoking, drinking alcohol or IV drug abuse. Denied any trauma in her back. No chest pain, palpitation or SOB. she refers having decreased PO intake as well. 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 [facility] was contacted. Cased accepted by Dr. Mo. Hospitalist team was consulted for admission until bed is assigned and transferred arranged. ED course:. CT of the head, CT L-spine, soft tissue neck, chest and abdomen pelvis were obtained. IV Abx was started: Vancomycin, Flagyl and Cefepime. EKG sinus rythm, tachycardic, no signs or ischemia. CXR: left pleural effusion. Patient found with WBC 28.6, lactate 1.3, procalcitonin 2.2, Chemistry: Sodium at 121 Serum osmolality 257, urine osmolality 384, and urine sodium <10. LFTs demonstrate transaminitis with total bilirubin 1.7, AST 69 and ALT 64 with alk phos 206. HS troponin 41.3. Admission Exam Per Admitting Provider Physical Exam Constitutional: well developed; no acute distress Respiratory: normal respiratory effort; no respiratory distress Auscultation: + crackles (mild/ right lower lung) Cardiovascular: RRR, no murmur, no edema Gastrointestinal (Abdomen): Inspection/Auscultation: + abdomen distended and normal bowel sounds Percussion/Palpation: + abdomen firm; abdomen nontender and no guarding Neurologic: Speech / Cognition: normal speech Motor/Sensory: no tremor Principal Diagnosis Sepsis, spinal abscess Discharge Exam Constitutional WD/WN, vitals as above Neck + neck tender and + positive Kernig's sign Respiratory normal respiratory effort and able to speak in complete sentences; no respiratory distress and does not use accessory muscles Auscultation: no crackles Cardiovascular RRR, no murmur, no edema Gastrointestinal (Abdomen) Inspection/Auscultation: + abdomen distended and normal bowel sounds Percussion/Palpation: + tympanic to percussion and + abdomen firm; abdomen nontender Musculoskeletal Head/Neck/Chest: normocephalic Skin + wound (scabbed-over wound para-spinally in thoraco area) Psychiatric A+Ox3, euthymic affect Genitourinary hematuria noted of urine in Peralta bag Discharge Data Allergies Allergy/AdvReac Type Severity Reaction Status Date / Time No Known Allergies Allergy Verified 04/18/24 21:37 Consultations 04/18/24 17:47 ED Decision to Admit Stat Procedures Performed Chest X-Ray 04/18/24 11:24 XR chest 1V portable HISTORY: fever COMPARISON: None. FINDINGS: Small left pleural effusion and left basilar densities suggestive of atelectasis. No pneumothorax. The heart is mildly enlarged. The right lung is clear. No evidence for pulmonary edema. No acute fractures. IMPRESSION: 1. Small left pleural effusion. 2. Left basilar densities favor atelectasis. 3. Mild cardiomegaly. ACT 112: Negative or not required by law. Electronically signed by: Frankie Peña M.D. 04/18/2024 1:26 PM Abdomen/Pelvis CT 04/18/24 11:[address] WITH IV CONTRAST CT DOSE: HISTORY: AP, bloating, [id number] pain, ?lympho/Infect TECHNIQUE: Multiaxial CT images of the abdomen and pelvis were performed following the use of intravenous contrast. A dose lowering technique was ut ilized adhering to the principles of ALARA. COMPARISON STUDY: Abdomen and pelvis CT 04/15/2024. FINDINGS: Please refer to the dedicated chest CT and thoracic spine CT performed same day for further evaluation of the paravertebral abnormality at the T8-T9 level. There appears to be epidural extension of the paravertebral abnormality at the T8-T9 level with moderate narrowing of the thecal sac best seen on image 50. The punctate focus of gas posterior to the T10 vertebral body. Therefore, this could represent an epidural abscess. A paravertebral soft tissue mass also remains in the differential diagnosis. Small foci of gas along the left side of the paravertebral T8-T9 level is again noted suggestive of a paravertebral abscess/phlegmon. Small focus of bone erosion within the left side of the T9 vertebral body is also noted. Small left pleural effusion. No pneumoperitoneum. No pneumatosis. The heart is enlarged. Mild pericardial enhancement with a small pericardial effusion. A 7 mm hypodense lesion within the periphery the right hepatic lobe remain stable. This favors a cyst. The gallbladder, pancreas, spleen, and adrenal glands are unremarkable. The kidneys enhance normally. No hy dronephrosis. The main portal vein is patent. Normal caliber abdominal aorta. No retroperitoneal or pelvic lymphadenopathy. Multiple large uterine masses consistent with fibroids. The bladder is unremarkable. Mild pelvic floor collapse. Mild body wall edema. Fluid-filled loops of large or small bowel seen throughout the abdomen. There is mild distention of the colon. This could represent an ileus or gastroenteritis/diarrheal illness. No evidence for a bowel obstruction. Partially calcified hypodense lesion within the appendix best seen on image 255 measuring 3.9 cm. This is consistent with a mucocele. IMPRESSION: 1. Interval progression of the paravertebral abnormality centered at the T8-T9 level with a left paravertebral phlegmon/developing abscess. There is evidence for epidural extension with moderate narrowing of the thecal sac. Therefore, this could represent an epidural abscess or mass. Dedicated thoracic spine MRI is recommended for further evaluation. 2. Small focus of bony destruction within the left side of the T9 vertebral body consistent with an osteomyelitis. There may be associated discitis at the T8-T9 level. 3. Small left pleural effusion. 4. Small pericardial effusion with mild enhancement of the pericardium which may represent a mild pericarditis. 5. 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 Nonemergent surgical consultation recommended for removal. 6. Fibroid uterus. 7. Mildly distended and fluid-filled colon. This could be due to an ileus or diarrhea illness/gastroenteritis. 8. Additional findings as described above. ACT 112: Negative or not required by law. Electronically signed by: Frankie Peña M.D. 04/18/2024 1:[address] 04/18/24 11:37 CT OF THE CERVICAL SPINE WITHOUT CONTRAST CLINICAL HISTORY: Neck pain. COMPARISON STUDY: No previous studies for comparison. TECHNIQUE: Helical axial images of the cervical spine were obtained without IV contrast. Sagittal and coronal reconstructions were viewed. Automated exposure control was utilized for the study. A dose lowering technique was utilized adhering to the principles of ALARA. FINDINGS: Alignment of the cervical spine is anatomic. Vertebral body heights are maintained. No acute cervical spine fracture or subluxation is present. There is no prevertebral edema. Facet joints are intact. There is mild multilevel disc space narrowing and osteophytosis of the facet arthrosis within the cervical spine. Central canal and neural foramen are suboptimally assessed given CT technique. A small amount of fluid within the right mastoid air cells is present. IMPRESSION: 1. No acute cervical spine fracture or subluxation. 2. Mild multilevel degenerative disc disease and facet arthrosis within the cervical spine. ACT 112: Negative or not required by law. Electronically signed by: Edwin Spring M.D. 04/18/2024 1:[address] 04/18/24 11:[address] WITH CONTRAST CT DOSE: HISTORY: [id number] pain, ?lympho/Infect TECHNIQUE: Multiaxial CT images of the chest were performed following the intravenous administration of contrast. A dose lowering technique was utilized adhering to the principles of ALARA. COMPARISON: Abdomen and pelvis CT 04/15/2024. FINDINGS: Paravertebral edema at the T8-T9 level with a few small foci of left paravertebral soft tissue gas are again noted and are better appreciated on the same day thoracic spine CT. Small focal erosion at the left superior endplate of T9 best in image 149. The small foci of the left paravertebral gas are consi stent with a developing abscess/phlegmon. There is a small left pleural effusion. Subcentimeter mediastinal and hilar lymph nodes do not meet CT criteria for pathologic involvement. Dominant superior mediastinal lymph node on image 21 measures 8 mm. Small pericardial effusion with mild enhancement of the pericardium. This could represent a mild pericarditis. The heart is mildly enlarged. Mild circumferential thickening of the mid to distal esophagus which could be reactive to the paravertebral abnormality. There is a punctate focus of gas posterior to the T10 vertebral body within the anterior epidural space. The abdominal structures will be reported on the same day abdomen and pelvis CT. The main pulmonary artery is dilated up to 3 cm consistent with mild pulmonary arterial hypertension. Otherwise, the central airways are patent. There is mild body wall edema. No pneumothorax. The central airways are patent. Bibasilar linear densities favor subsegmental atelectasis. Focal consolidation within the base of the left lower lobe favors compressive atelectasis from the small left pleural effusion. IMPRESSION: 1. Paravertebral abnormality centered at the T8-T9 level is better appreciated on the same day thoracic spine CT. There are few small foci of gas within the left paravertebral space at this location which suggests a phlegmon/developing abscess. There is also a small focus of bony erosion at the left superior osteophyte of T9 consistent with osteomyelitis. Dedicated MRI of the thoracic spine is recommended for further evaluation. 2. The punctate focus of gas posterior to the T10 vertebral body which is indeterminate. Attention at follow-up recommended. 3. Small left pleural effusion. 4. Small pericardial effusion with mild enhancement of the pericardium. This could represent a mild pericarditis. 5. No significant lymphadenopathy identified. 6. Circumferential thickening within the mid to distal esophagus. This could be reactive to the paravertebral abnormality. 7. Additional findings as described above. ACT 112: Negative or not required by law. Electronically signed by: Frankie Peña M.D. 04/18/2024 1:[address] 04/18/24 11:37 CT SCAN OF THE BRAIN WITHOUT IV CONTRAST CLINICAL HISTORY: Neck pain. COMPARISON STUDY: No priors. TECHNIQUE: Unenhanced axial CT scan of the brain is performed from the vertex to the skull base. A dose lowering technique was utilized adhering to the principles of ALARA. FINDINGS: Brain parenchyma: The brain parenchyma is normal in appearance. There is no hemorrhage, mass effect, or evidence of acute territorial ischemia by CT criteria. Mejias-white matter differentiation is preserved. No extra-axial fluid collection is seen. Ventricles, sulci, cisterns: Normal in configuration. Intracranial vasculature: The visualized intracranial vasculature at the skull base is normal in appearance Calvarium: Unremarkable. Sinuses and mastoids: The visualized paranasal sinuses are clear. There is a right mastoid effusion. The left mastoid air cells are well pneumatized. Orbits: The bony orbits are grossly intact. IMPRESSION: No acute intracranial abnormality. ACT 112: Negative or not required by law. Electronically signed by: Guillermo Eldridge M.D. 04/18/2024 12:[address] 04/18/24 11:37 CT SCAN OF THE LUMBAR SPINE WITH IV CONTRAST CLINICAL HISTORY: Back pain. Leg pain. COMPARISON STUDY: Abdominal CT performed concurrently on 04/18/[address] dated 04/15/2024. TECHNIQUE: Following the IV administration of 94 cc of Optiray 320, CT scan of the lumbar spine was performed from the lower thoracic spine to the sacrum. Images are reviewed in the axial, sagittal, and coronal planes. IV contrast was administered without complication. A dose lowering technique was utilized adhering to the principles of ALARA. CT DOSE: 2908.14 mGy.cm FINDINGS: The skeletal structures are well-mineralized. There is no evidence of fracture or malalignment involving the lumbar spine. Vertebral body height and alignment are maintained. The transverse and spinous processes are intact. There is no spondylolysis. No lytic or blastic lesion is seen. Tiny anterior and lateral marginal osteophytes are seen throughout. No lytic or blastic lesion is identified. There is mild degenerative disc space narrowing, greatest at L2-L3 and L3-L4. There is no CT evidence of large disc herniation or central canal stenosis. The lumbar paraspinous soft tissues are normal in appearance. A left pleural effusion is partially imaged. No retroperitoneal lymphadenopathy is seen. 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 Uterine mass lesions are partially imaged and typical for fibroids. IMPRESSION: 1. No acute bony abnormality is seen involving the lumbar spine. 2. 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 3. A left pleural effusion is partially imaged. 4. Additional findings as above. ACT 112: Negative or not required by law. Dictated: 04/18/2024 12:52 PM Transcribed: 04/18/2024 1:22 PM Sarah [id number] [facility]rod [id number] Electronically signed by: Guillermo Eldridge M.D. 04/18/2024 5:[address] 04/18/24 11:37 CT OF THE NECK WITH IV CONTRAST CLINICAL HISTORY: [id number] pain, ?lympho/Infect COMPARISON STUDY: No previous studies for comparison. TECHNIQUE: Following IV administration of 94 mL of Optiray, helical axial images of the neck were obtained. Sagittal and coronal reconstructions were viewed. Automated exposure control was utilized for the study. A dose lowering technique was utilized adhering to the principles of ALARA. FINDINGS: There is a small amount of fluid within the right mastoid air cells. The sinuses are clear. The parotid and submandibular glands are unremarkable. The epiglottis is normal. No prevertebral edema edema. There are no fluid collection within the neck. Major vasculature of the neck is patent. No cervical lymphadenopathy. No mucosal lesions are identified. Mild multilevel degenerative disc disease and facet arthrosis within the cervical spine is present. A small left pleural effusion is partially imaged. The chest CT will be reported separately. IMPRESSION: 1. No acute process within the neck. 2. No cervical lymphadenopathy or masses. 3. Small left pleural effusion, better depicted on the chest CT which will be reported separately. ACT 112: Negative or not required by law. Electronically signed by: Edwin Spring M.D. 04/18/2024 1:[address] 04/18/24 11:37 CT thoracic spine w con CT DOSE: CLINICAL HISTORY: [id number] pain, ?lympho/Infect TECHNIQUE: Multiaxial CT images of the thoracic spine were performed following the intravenous administration of contrast and reformatted in the sagittal and coronal planes. A dose lowering technique was utilized adhering to the principles of ALARA. COMPARISON STUDY: Abdomen and pelvis CT 04/15/2024. FINDINGS: There is abnormal paravertebral soft tissue swelling centered at the T8-T9 level with a few small foci of paravertebral soft tissue gas along the left side of the T8-T9 level. Therefore, this likely represents underlying paravertebral infection with developing abscess/phlegmon. There is a small focus of cortical erosion along the left superior osteophyte of T9 best seen on coronal image 46. However, the disc space is preserved without significant endplate destruction. Therefore, these findings favor a paravertebral infection with secondary involvement of the T9 vertebral body consistent with an osteomyelitis. A discitis/osteomyelitis at the T8-T9 level also remains in the differential diagnosis given the surrounding paravertebral edema. There is a small left pleural effusion. No significant central canal narrowing by CT technique. No fracture or subluxation within the thoracic spine. IMPRESSION: 1. Abnormal paravertebral soft tissue swelling centered at the T8-T9 level which has progressed in the interval with a few small foci of left paravertebral gas at this location. Therefore, this is consistent with a paravertebral infection with developing abscess/phlegmon. 2. . There is a small focus of cortical erosion along the left superior osteophyte of T9 as described above. However, the disc space is preserved without significant endplate destruction. Therefore, these findings favor a paravertebral infection with secondary involvement of the T9 vertebral body consistent with an osteomyelitis. A discitis/osteomyelitis at the T8-T9 level also remains in the differential diagnosis given the surrounding paravertebral edema. ACT 112: Negative or not required by law. Electronically signed by: Frankie Peña M.D. 04/18/2024 1:16 PM Chest X-Ray 04/18/24 21:44 XR chest 1V portable CLINICAL HISTORY: Hypoxia. COMPARISON STUDY: Chest radiograph and chest CT performed earlier today. FINDINGS: Elevation of the right hemidiaphragm has slightly increased. There is no pneumothorax. A small left pleural effusion persists. No evidence for pulmonary edema. There is no consolidation. Mild cardiomegaly is unchanged. IMPRESSION: 1. No significant change in a small left pleural effusion with mild left basilar opacity which favors atelectasis. 2. Slight increase in elevation of the right hemidiaphragm. ACT 112: Negative or not required by law. Electronically signed by: Edwin Spring M.D. 04/19/2024 7:09 AM Ordered Studies 04/18/24 11:37 CT abd pelvis IV con only Stat CT cervical spine wo con Stat CT chest diagnostic w con Stat CT head/brain wo con Stat CT lumbar spine w con Stat CT soft tissue neck w con Stat CT thoracic spine w con Stat Hospital Course (1) Hyponatremia: (2) Transaminitis: (3) Pericardial effusion: (4) Vertebral abscess: (5) Osteomyelitis of thoracic vertebra: (6) Sepsis: (7) Abdominal pain: Plan 54 y/o female with no past medical history here due to progressive abdominal pain, abdominal pain , and back pain. It started with a stabbing left abdominal pain on 04/09 when patient at a corn roast, then went away while patient continued to have constipation, but returned 04/15. CT-AP with findings osteomyelitis, even epidural abscess T8-T9. 1) Vertebral abscess (T8-T9)/ Osteomyelitis(T9)/ Meningitis - Admitted to PCU. Patient accepted at [facility] for further manager location. Pending bed availability - Patient with progressed symptoms: headaches, stiff neck, ambulatory disfunction and back pain. - Fever of 38.0 C, tachycardia - WBC 26.8 ESR: 78, Procal 2.24H Lactate 1.3 - CT-thoracic: Interval progression of the paravertebral abnormality centered at the T8-T9 level with a left paravertebral phlegmon/developing abscess.. There is evidence for epidural extension with moderate narrowing of the thecal sac. There is a small focus of cortical erosion along the left superior osteophyte of T9 - Neck Ct: No acute cervical spinal fracture - [facility] reached out by ED provider which recommended transfer due to complexity of case. - Blood culture --> Gram positive cocci, clusters (likely Staphylococcus) for both cultures - PCR blood --> positive for S. 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 Nonemergent surgical con sultation recommended for removal., Mildly distended and fluid-filled colon. This could be due to an ileus or diarrhea illness/gastroenteritis. - Continue NPO, if vomiting consider NG tube - Held stool softeners for now given infectious process 3) Hyponatremia - Na, 134 <-- 131 <-- 121 L (11 am) - s/p 2 L of Normal saline ED, s/p NSS maintenance - Goal of 8 mEq in the first 24 hrs - D5W: 80 ml/hr to slow down rate of correction on initial day of hospital stay - BMP q6hr 4) Small pulmonary effusion - O2Sat, 94, on room air - May be secondary to current infectious process - continue to monitor Code status: Full code DVT prophylaxis: SCDs Diet: NPO for possible surgical intervention Disposition: PCU, pending transfer to [facility] pending bed Total Time Total Time Spent Total Time Spent (In Minutes): <30 Discharge Plan Discharge Items Patient Disposition: Transfer Acute Care Hospital Reason For Visit: SEPSIS + MENINGITIS + PARAVERTEBRAL ABSCESS Discharge Diagnosis: Vertebral abscess (T8-T9) Osteomyelitis(T9) Activity: Per Instructions section Non-emergency contact: Primary Care Provider Call non-emergency contact if: you have any medication questions, your symptoms worsen, your temperature is above 101 and your temperature is above 101.5 Follow-up/Referrals: Juani Goodrich, [Primary Care Provider] - Diet: Nothing by Mouth Addtl Attending Provider Instructions: Rhonda is a 54 y/o female with no past medical history here due to progressive abdominal pain, abdominal pain , and back pain. Symptoms started 3 days ago with abdominal pain and back pain. She was seen 3 days ago in the ED where she was f ound with significant fecal impaction and a CT abdomen with a 4cm partially calcified mucocele in her appendix. She was seen by General surgery outpatient today where she was found with worsening back pain and ambulatory dysfunction. Additionally, description of abnormal rind of soft tissue involving the partially imaged lower thoracic vertebral bodies was noted and was greatest at T9 and appeared to be contiguous with the pleural-based soft tissue thickening in the left lung. Thoracic CT today showed progression on prior thoracic findings including paravertebral abnormality centered at T8-T9 with left paravertebral phlegmon/developing abscess. Additionally, there is a epidural extension with moderate narrowing of the thecal sac that could represent epidural abscess or mass and small focus of bony destruction with the left side of the T9 vertebral body is consistent with osteomyelitis. There may be associated discitis at the T8-T9 level as well. On my exam patient was found resting comfortable, easily awake. She refers progressive abdominal pain and back pain in the past 3 days. 2 days ago she noted some ambulatory disturbances. She refers she had been taking Miralax as prev recommended and had been having loose bowel movements. She denied any fevers or chills, but she does refers being feeling cool in the last couple days. She refers some neck stiffness and when she bends her neck forward she feels pain go down her back into her legs. Denied any nausea or vomiting. She refers passing gasses and burping. Denied any smoking, drinking alcohol or IV drug abuse. Denied any trauma in her back. No chest pain, palpitation or SOB. she refers having decreased PO intake as well. 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 [facility] was contacted. Cased accepted by Dr. Mo. Hospitalist team was consulted for admission until bed is assigned and transferred arranged. ED course:. CT of the head, CT L-spine, soft tissue neck, chest and abdomen pelvis were obtained. IV Abx was started: Vancomycin, Flagyl and Cefepime. EKG sinus rythm, tachycardic, no signs or ischemia. CXR: left pleural effusion. Patient found with WBC 28.6, lactate 1.3, procalcitonin 2.2, Chemistry: Sodium at 121 Serum osmolality 257, urine osmolality 384, and urine sodium <10. LFTs demonstrate transaminitis with total bilirubin 1.7, AST 69 and ALT 64 with alk phos 206. HS troponin 41.3. 54 y/o female with no past medical history here due to progressive abdominal pain, abdominal pain , and back pain. Found with findings osteomyelitis, even epidural abscess T8-T9. Vertebral abscess (T8-T9) Osteomyelitis(T9) Meningitis - Admit to PCU. Patient accepted at [facility] for further manager location. Pending bed availability - Patient with progressed symptoms: headaches, stiff neck, ambulatory dis function and back pain. - Fever of 38.0 C, tachycardia - WBC 26.8 ESR: 78, Procal 2.24H - Lactate 1.3 - CT thoracic: Interval progression of the paravertebral abnormality centered at the T8-T9 level with a left paravertebral phlegmon/developing abscess.. There is evidence for epidural extension with moderate narrowing of the thecal sac. There is a small focus of cortical erosion along the left superior osteophyte of T9 - Neck Ct: No acute cervical spinal fracture - [facility] reached out by ED provider which recommended transfer due to complexity of case. Continue Abx - Concern of infections process - Blood culture pending - Tick born workup pending - IV Vancomycin, IV Zosyn and IV Cefepime - IV Tylenol for fever - CBC am Fecal impaction with mild abdominal distention - Increased abdominal pain and bloating. Passing gasses. No vomiting - CT abdomen: 3.9 cm mucocele of the appendix. Nonemergent surgical consultation recommended for removal., Mildly distended and fluid-filled colon. This could be due to an ileus or diarrhea illness/gastroenteritis. - Continue NPO - Will hold stool softeners for now given infectious process - If vomiting consider NG tube Hyponatremia: - Na: 121 L (11 am) - s/p 2 L of Normal saline ED - Goal of 6-12 mEq in the first 24 hrs - Last Na: 128- at 6 pm - s/p NSS maintenance - D5W: 80 ml/hr to slow down rate of correction - BMP q6hr Small pulmonary effusion - Sat at 94 on room air - May be secondary to current infectious process - continue to monitor DVT prophylaxis: SCDs Diet : NPO for possible surgical intervention Disposition : PCU, pending transfer to [facility] pending bed Pending Studies at Discharge: No Stand-Alone Forms: My [facility] Skilled Items Patient informed of condition?: Yes DNR: No Discharge Level of Care: Other Communicable Disease: No Discharge Prognosis: Stable Lines: Peripheral IV Urinary Catheter: Yes Medications and DC Order Prescriptions: Continued No Known Home Medications Discharge Orders: Discharge Order (Routine); Ordered 04/20/24 Ordered By: Jacek Shelley Admission Data Admit Date/Time: 04/18/24 18:51 Attending Provider: Christiano Loomis Admit Provider: Catrachito Campbell Primary Care Provider: Juani Goodrich Other Providers: Jose Gonzales Supervising Physician Co-Signing Physician Notes I personally examined the patient and verified all hollingsworth points of history and exam, discussed case, and agree with decision making with Dr Shelley No new symptomsmostly bothered by abdominal symptoms today. Feels bloating. Friend who is a former ICU nurse presentupdated her to the best my ability, she expressed a very good understanding. At the time I saw her we were still waiting on bed at [facility] have now been informed of bed is available. Vitals noted, in general she is awake and alert much more talkative fortunately while she does appear uncomfortable she does not appear to be in distress. Breathing unlabored no accessory muscle use good effort. Skin without rashes pallor or icterus. A/P Sepsis - Staph bacteremiaosteomyelitis discitis/abscess is almost certainly secondary. She will warrant some degree of an endocarditis workup/etc. given the gram-positive bacteremia is the root cause of the sepsis. Continue cefepime as a beta-lactam, continue vancomycin until cultures are finalized. Will warrant spine surgery, and infectious disease evaluation as well. For transfer to tertiary
[2024-04-19] MEDS: CEFEPIME 2,000 MG in SYRINGE 0 ML IV SCH (08:47)
--- NOTE | 2024-04-19 09:01 | Pharmacy Report ---
Pharmacy PK ABX Note - Date of Service April 19, 2024 - Assessment and Plan Assessment 54 year old F receiving metronidazole, vancomycin, and cefepime for treatment of vertebral abscess and osteomyelitis. Pertinent microbiologic data includes: Staphylococcus sp PCR +, Staph aureus PCR +, Blood culture x 2 growing gram positive cocci. Day # 2 of antimicrobial therapy. Plan Vancomycin * Loading dose: 1750 mg IV x 1 * Maintenance dose: 1250 mg IV every 12 hours, increased from 750 mg every 12 hours due to improving CrCl. * Regimen is predicted to achieve target AUC/ADRIÁN of 400-600 mg/L.hr * Trough level ordered for: 04/20/24 at 04:30 Pharmacy will continue to follow and will adjust dose/frequency as necessary. Thank you. Pharmacy has transitioned to AUC monitoring for vancomycin. AUC/ADRÁIN is the preferred PK/PD target and is associated with decreased risk of nephrotoxicity compared to traditional trough targets.
[2024-04-19 12:10] LABS: Calcium 8.1 mg/dl (8.6-10.3); Potassium 5.3 mmol/L (3.5-5.1)
[2024-04-19 12:18] LABS: BUN Creatinine Ratio 19.7 (10-20); Creatinine Clr Calc Pharmacy 95.8 ml/min; Est GFR (African American) 117.5 ml/min; Est GFR (Non-African American) 101.3 ml/min
--- NOTE | 2024-04-19 12:32 | Billing Data ---
Date of Service April 18, 2024 Coding Level of Care Code 61423 INT INP/OBS CARE
--- NOTE | 2024-04-19 17:25 | Billing Data ---
Date of Service April 19, 2024 Coding Level of Care Code 41526 IN/OBS DISCH 30 MIN/LESS
[2024-04-19] MEDS: VANCOMYCIN HCL 1,250 MG in SODIUM CHLORIDE 0.9% 250 ML IV SCH (17:41)
[2024-04-19 18:56] LABS: Creatinine Clr Calc Pharmacy 104.4 ml/min; Est GFR (African American) 120.8 ml/min; Est GFR (Non-African American) 104.2 ml/min
[2024-04-19 18:57] LABS: BUN Creatinine Ratio 23.2 (10-20); Calcium 8.1 mg/dl (8.6-10.3); Potassium 3.7 mmol/L (3.5-5.1)
[2024-04-19] MEDS: LIDOCAINE 5% 1 PATCH TD STA (20:34)
[2024-04-20] MEDS: MoRPHine SULFATE 2 MG/ML CARP IV PRN (00:56)
[2024-04-20 05:41] LABS: Creatinine Clr Calc Pharmacy 100.8 ml/min; Est GFR (African American) 119.4 ml/min
[2024-04-20] MEDS: VANCOMYCIN LEVEL ONE (05:42)
--- NOTE | 2024-04-20 06:40 | Electrocardiogram Report ---
Test Reason : Blood Pressure : */* mmHG Vent. Rate : 113 BPM Atrial Rate : 113 BPM P-R Int : 130 ms QRS Dur : 84 ms QT Int : 326 ms P-R-T Axes : 42 -2 19 degrees QTcB Int : 447 ms Sinus tachycardia with occasional Premature ventricular complexes Possible Left atrial enlargement Borderline ECG No previous ECGs available Confirmed by Saw Mckinnon ([id number]) on 04/20/2024 6:39:38 AM Referred By: REFERRED SELF Confirmed By: Saw Mckinnon
[2024-04-20 08:11] LABS: Hematocrit (blood only) 30.8 % (37.0-47.0); Mean Corpuscular Hgb Conc 35.7 g/dL (32.0-36.0); Mean Corpuscular Volume 83.9 fL (80.0-100.0); Mean Platelet Volume 10.4 fL (9.4-12.4); Platelet Count 252 K/uL (130-400); RDW Coefficient of Variation 14.8 % (11.5-14.5); RDW Standard Deviation 45.6 fL (36.4-46.3); Red Blood Count 3.67 M/uL (4.20-5.40); White Blood Count 26.27 K/ul (4.8-10.8)
[2024-04-20 08:42] LABS: Basophils # (auto) 0.14 K/uL (0.00-0.20); Basophils % (auto) 0.5 %; Eosinophils # (auto) 0.04 K/uL (0.00-0.50); Eosinophils % (auto) 0.2 %; Immature Granulocytes # (auto) 2.31 K/uL (0.01-0.20); Immature Granulocytes % (auto) 8.8 %; Lymphocytes # (auto) 1.51 K/uL (1.20-3.40); Lymphocytes % (auto) 5.7 %; Monocytes # (auto) 1.96 K/uL (0.11-0.59); Monocytes % (auto) 7.5 %; Neutrophils # (auto) 20.31 K/uL (1.40-6.50); Neutrophils % (auto) 77.3 %
--- NOTE | 2024-04-20 12:32 | Pharmacy Report ---
Pharmacy PK ABX Note - Date of Service April 20, 2024 - Assessment and Plan Assessment 04/20: Patient continues on vancomycin. Given patient's renal function improving and low trough vanomycin level, will increase dose and give dose at 1500 instead of the currently scheduled 1700 to increase AUC for the current dose. Blood cultures growing staphylococcus with susceptibilities still pending. Of note, no MecA resistance gene was detected by bioYashie panel. Will continue to monitor and adjust as needed. 04/19: 54 year old F receiving metronidazole, vancomycin, and cefepime for treatment of vertebral abscess and osteomyelitis. Pertinent microbiologic data includes: Staphylococcus sp PCR +, Staph aureus PCR +, Blood culture x 2 growing gram positive cocci. Day # 3 of antimicrobial therapy. Plan Vancomycin * Loading dose: 1750 mg IV x 1 * Maintenance dose: 1500 mg IV every 12 hours, increased from 1250 mg IV every 12 hours * Regimen is predicted to achieve target AUC/ADRIÁN of 400-600 mg/L.hr * Trough level 04/20/2024: 6.8 Pharmacy will continue to follow and will adjust dose/frequency as necessary. Thank you. Pharmacy has transitioned to AUC monitoring for vancomycin. AUC/ADRIÁN is the preferred PK/PD target and is associated with decreased risk of nephrotoxicity compared to traditional trough targets.
[2024-04-20] MEDS: VANCOMYCIN HCL 1,500 MG in SODIUM CHLORIDE 0.9% 500 ML IV SCH (14:25)
--- NOTE | 2024-04-20 18:30 | Billing Data ---
Date of Service April 20, 2024 Coding Level of Care Code 70249 IN/OBS DISCH 30 MIN/LESS
[2024-04-21 00:08] LABS: Babesia microti DNA Not Detected (Not Detected)
[2024-04-21 16:09] LABS: Ehrlichia chaff DNA Bld Negative (Negative)
[2024-04-21 23:03] LABS: A calco-baum cmplx NotReported Not Detected (NotDetected); Bact fragilis Not Reported Not Detected (NotDetected); Blood Culture Id Panel See PCR Comment (NotDetected); C auris Not Reported Not Detected (NotDetected); Calbicans Not Reported Not Detected (NotDetected); Candida glabrata Not Reported Not Detected (NotDetected); Candida krusei Not Reported Not Detected (NotDetected); Cneoformans/gatti Not Reported Not Detected (NotDetected); Cparapsilosis Not Reported Not Detected (NotDetected); E cloacae compx Not Reported Not Detected (NotDetected); Efaecalis Not Reported Not Detected (NotDetected); Efaecium Not Reported Not Detected (NotDetected); Enterobacterales Not Reported Not Detected (NotDetected); Escherichia coli Not Reported Not Detected (NotDetected); H influenzae Not Reported Not Detected (NotDetected); K aerogenes Not Reported Not Detected (NotDetected); Koxytoca Not Reported Not Detected (NotDetected); Kpneumoniae grp Not Reported Not Detected (NotDetected); Lmonocyt Not Reported Not Detected (NotDetected); N meningitidis Not Reported Not Detected (NotDetected); P aeruginosa Not Reported Not Detected (NotDetected); Proteus spp Not Reported Not Detected (NotDetected); Salmonella spp Not Reported Not Detected (NotDetected); Staph lugdunensis Not Reported Not Detected (NotDetected); Staph spp. Not Reported DETECTED (NotDetected); Staphaureus Not Reported DETECTED (NotDetected); Staphepi Not Reported Not Detected (NotDetected); Stenmaltophilia Not Reported Not Detected (NotDetected); Strep agal(GrpB) Not Reported Not Detected (NotDetected); Strep pneum Not Reported Not Detected (NotDetected); Strep pyog (GrpA) Not Reported Not Detected (NotDetected); Strep spp Not Reported Not Detected (NotDetected); mecAC+MREJ Resistant Gene MRSA Not Detected (NotDetected)
[2024-04-22 00:24] LABS: Staphylococcus spp. DETECTED (NotDetected)
== END 2024-04-20 14:55 | disposition short-term general hospital (02) | DRG 871 ==
LOC: ED 10:47 → EDINP 18:51 → SUATTDRO 18:51 → EDINP 04-20 15:29

== ENCOUNTER 2024-06-21 13:21 | Inpatient (IN) ==
[2024-06-21 14:48] LABS: Basophils # (auto) 0.07 K/uL (0.00-0.20); Basophils % (auto) 0.9 %; Eosinophils # (auto) 0.17 K/uL (0.00-0.50); Eosinophils % (auto) 2.1 %; Hematocrit (blood only) 36.5 % (37.0-47.0); Hemoglobin 11.8 g/dl (12.0-16.0); Immature Granulocytes # (auto) 0.03 K/uL (0.01-0.20); Immature Granulocytes % (auto) 0.4 %; Lymphocytes # (auto) 1.38 K/uL (1.20-3.40); Lymphocytes % (auto) 17.4 %; Mean Corpuscular Hemoglobin 29.9 pg (25.0-34.0); Mean Corpuscular Hgb Conc 32.3 g/dL (32.0-36.0); Mean Corpuscular Volume 92.4 fL (80.0-100.0); Mean Platelet Volume 10.2 fL (9.4-12.4); Monocytes # (auto) 0.71 K/uL (0.11-0.59); Neutrophils # (auto) 5.56 K/uL (1.40-6.50); Neutrophils % (auto) 70.2 %; Platelet Count 323 K/uL (130-400); RDW Coefficient of Variation 13.8 % (11.5-14.5); RDW Standard Deviation 47.1 fL (36.4-46.3); Red Blood Count 3.95 M/uL (4.20-5.40); White Blood Count 7.92 K/ul (4.8-10.8)
--- NOTE | 2024-06-21 14:55 | Emergency Department Note ---
Impression & Plan Spinal epidural abscess ED Provider Note NAME: YAKOV MCKEON AGE: 54 SEX: F : 1970 ARRIVES VIA: Walk-In INFORMANT: [Patient][nursing] ED PROVIDER(S): [Guillermo Jackson MD] CHIEF COMPLAINT: DrMkihail Referred HISTORY OF PRESENT ILLNESS: The patient is a 54-year-old female who was referred by [facility] infectious disease for MRI imaging of her entire spine and possible tunneled catheter removal. The patient had spinal decompression surgery in the lower C-spine and lower thoracic spine on [address] [facility]. She had a tunneled catheter placed in the right chest wall on 06 May. She has been on IV Ancef to treat the infection. The patient was discharged from a care home facility named [facility]. This occurred 2 days ago. 3 days ago, was her last dose of scheduled antibiotics. The patient was referred today by ID for imaging of the entire spine (cervical, thoracic and lumbar) to see if things are improving. If not, she may require further antibiotic therapy. She was also referred for the possibility of a tunneled catheter removal if no further antibiotics were indicated. The patient has not had fever or chills, she has not had cough or congestion. She is not short of breath. She does admit to a bandlike sensation across her diaphragm which has been present since the abscesses were diagnosed although, the band sensation is improved. She also has some numbness to both fifth fingers although again, this is improved since the initial diagnosis was made. PMHx/PSHx/Social Hx: See Below PHYSICAL EXAM: GENERAL: Patient is in no acute distress. HEENT: No acute trauma, normocephalic atraumatic, mucous membranes moist, no nasal congestion. NECK: No stridor, no adenopathy, no meningismus, trachea is midline. LUNGS: Clear to auscultation bilaterally, no wheeze, no rhonchi, breath sounds equal. HEART: Without murmurs gallops or rubs, regular rate and rhythm. ABDOMEN: Soft, nontender, no peritonitis. EXTREMITIES: No cyanosis, full range of motion of all the joints without pain or difficulty. NEUROLOGIC: Oriented x 3, no acute motor or sensory deficits, no focal weakness. SKIN: No jaundice, no diaphoresis. Back: The patient has 2 surgical incisions which have healed well. No evidence for cellulitis. DIFFERENTIAL DIAGNOSIS: Ongoing spinal infection, failed outpatient management, among others. EMERGENCY DEPARTMENT PROCEDURES: MEDICAL DECISION MAKING: There is no leukocytosis. The patient does have a very subtle anemia. There is a normal platelet count. Sed rate is normal. Renal panel testing does not show any electrolyte abnormality or renal failure. C-reactive protein was very mildly elevated but markedly improved when compared to previous testing. There was no concerning liver enzyme elevation. Cervical spine MRI showed changes consistent with recent surgery, no evidence for ongoing or worsening infection. A meningioma was seen which had been noted before. The patient presents for an evaluation as directed by [facility] infectious disease. Clinically, she looked well. I did speak with the on-call hospitalist service. Initially, the patient was to be discharged to have outpatient thoracic and lumbar spine MRIs performed. This was going to be arranged for later in the week. After discussion with [facility] neurosurgery and with [facility] infectious disease, the hospitalist decided upon admission as the patient is going to require IV antibiotic therapy until the imaging shows no further need for IV antibiotic therapy. She apparently has missed a few doses of IV antibiotics. I did speak with the patient's managed care specialist, Rebecca Laurie. We discussed the situation over the phone. In short, the patient is to be hospitalized. Further workup and IV antibiotic therapy is needed. Clinically, the patient appears to be improving from her spinal infection. Prior/Outside records/notes reviewed: Previous [facility] surgical note from 04/22/2024 discussing her decompression procedure. Imaging/x-ray results per my interpretation: Chronic Medical/Social conditions affecting care: Recent lengthy course of antibiotics for epidural abscess/infection. Care/Management discussed with: Case management, the on-call hospitalist service. Level of care consideration(s): After review of the information above and other included data: --I believe the patient requires escalation of care to admission DISPOSITION: Admission Past Med/Surg History Problem List Spinal epidural abscess (Acute) Back pain Back problem Medical History Transaminitis Hyponatremia Pericardial effusion Pleural effusion on left Vertebral abscess Osteomyelitis of thoracic vertebra Discitis thoracic region Sepsis Surgical History (Updated 06/20/24 @ 11:32 by Vivian Sinclair RN) H/O laminectomy (04/22/24) LAMINECTOMY DECOMPRESSION SPINAL CORD POSTERIOR LUMBAR [facility] History of wisdom tooth extraction Family History Other Adopted Social History Smoking Status: Never smoker Second Hand Exposure: No; Do You Dip or Chew Tobacco: No; Hx Alcohol Use: Yes Alcohol type: beer Hx Substance Use: No Preferred Language: Czech Communication Ability: Effective Rd Manager Required: No Beliefs That Will Affect Care: None marital status: Single Current Living Situation: Alone current occupational status: employed 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[employer], 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 How many Children do You have: 0 Feels Safe at Home: Yes Diet: regular during the past year weight has: remained stable Assistive Devices: Walker Allergies Allergies Allergy/AdvReac Type Severity Reaction Status Date / Time No Known Allergies Allergy Verified 06/21/24 15:08 Home Meds Home Medications Medication Instructions Recorded Confirmed No Known Home Medications 04/18/24 06/21/24 Results & Data (ED) Vital Signs Vital Signs - 24 hr 06/21/24 13:32 06/21/24 16:09 Temperature 36.4 C L Temperature Source Temporal Artery Scan Pulse Rate 86 Pulse Rate [Finger] 78 Pulse Strength [Finger] Normal Respiratory Rate 14 16 Respiratory Effort / Characteristics Non-Labored Spontaneous Respiratory Depth Normal Respiratory Pattern Regular Blood Pressure 144/84 H Blood Pressure [Left Arm] 146/86 H Blood Pressure Mean 104 Blood Pressure Mean [Left Arm] 106 Blood Pressure Position [Left Arm] Sitting Pulse Oximetry 98 99 Oxygen Delivery Method Room Air Room Air Sepsis New/Unexplained Change in Mental Status No Sepsis Action Taken by Nursing No Action Required Home Medications Current Medication List: was personally reviewed by me Laboratory Data Attestation: I reviewed the patient's lab results. 06/21/24 14:30 06/21/24 14:30 Lab Results 06/21/24 Range/Units 14:30 WBC 7.92 (4.8-10.8) K/ul RBC 3.95 L (4.20-5.40) M/uL Hgb 11.8 L (12.0-16.0) g/dl Hct 36.5 L (37.0-47.0) % MCV 92.4 (80.0-100.0) fL MCH 29.9 (25.0-34.0) pg MCHC 32.3 (32.0-36.0) g/dL RDW Std Deviation 47.1 H (36.4-46.3) fL RDW Coeff of Mita 13.8 (11.5-14.5) % Plt Count 323 (130-400) K/uL MPV 10.2 (9.4-12.4) fL Immature Gran % (Auto) 0.4 % Neut % (Auto) 70.2 % Lymph % (Auto) 17.4 % Jerome % (Auto) 9.0 % Eos % (Auto) 2.1 % Baso % (Auto) 0.9 % Neut # (Auto) 5.56 (1.40-6.50) K/uL Lymph # (Auto) 1.38 (1.20-3.40) K/uL Jerome # (Auto) 0.71 H (0.11-0.59) K/uL Eos # (Auto) 0.17 (0.00-0.50) K/uL Baso # (Auto) 0.07 (0.00-0.20) K/uL Immature Gran # (Auto) 0.03 (0.01-0.20) K/uL ESR 21 (0-30) mm/hr Sodium 139 (136-145) mmol/L Potassium 4.0 (3.5-5.1) mmol/L Chloride 104 (98-107) mmol/L Carbon Dioxide 30 (21-32) mmol/L Anion Gap 5 (3-11) BUN 15 (6-23) mg/dl Creatinine 0.70 (0.6-1.2) mg/dl Est Cr Clr Drug Dosing Not Reportable eGFR 101.44 BUN/Creatinine Ratio 21.4 H (10-20) Glucose 91 (70-99(Fasting)) mg/dl Calcium 9.3 (8.6-10.3) mg/dl Total Bilirubin 0.4 (0.2-1.0) mg/dl AST 21 (13-39) U/L ALT 9 (7-52) U/L Alkaline Phosphatase 84 (34-104) U/L C-Reactive Protein 0.57 H (0-0.5) mg/dl Total Protein 7.0 (6.0-8.3) gm/dl Albumin 4.2 (3.4-5.0) gm/dl Globulin 2.8 (2.5-4.0) gm/dl Albumin/Globulin Ratio 1.5 (0.9-2) Administered Medications Cefazolin Sodium (Ancef 2000mg) 2,000 mg in 15 mls @ 3.75 mls/min IV Q8H VICKI Stop: 08/02/24 18:29 Last Admin: 06/21/24 18:38 Dose: 3.75 mls/min Documented By: BMK Discontinued Medications Gadobutrol (Gadobutrol 65ml Vial) 6.2 ml IV ONCE ONE Stop: 06/21/24 17:30 Last Admin: 06/21/24 17:29 Dose: 6.2 ml Documented By: [facility] Imaging Data Radiologist's Impression: Cervical Spine MRI 06/21/24 15:10 MRI OF THE CERVICAL SPINE WITH AND WITHOUT CONTRAST CLINICAL HISTORY: epidural abscess, ? improving or worsening, ID req COMPARISON: CTA of the neck and cervical spine CT April 18, 2024. TECHNIQUE: Utilizing a 1.5 Laury magnet and dedicated coil, multiplanar, multiecho imaging of the cervical spine was performed before and after intravenous administration of 6.2 of Gadavist. FINDINGS: Alignment of the cervical spine is anatomic. Vertebral body heights are maintained. No marrow edema or marrow placement is present. There are no cervical spine fractures. Cervical cord signal and caliber are normal. No residual epidural fluid collection is identified status post multilevel decompression within the cervical spine. Postoperative findings within the posterior aspect of the cervical spine are noted, including a rim-enhancing fluid collection which extends from the mid cervical spine to the upper thoracic spine. This measures approximately 4.7 x 2.6 x 1.5 cm. This is postsurgical. No additional fluid collections are present. Enhancing intradural extramedullary mass within the canal at the T4 level measures 1.6 x 1 cm. Axial images through the portion of the spine were not obtained. This results in severe central canal stenosis with cord compression. There is no cord edema. This is suggestive of meningioma. No additional intracanalicular abnormalities are identified. There is no central canal stenosis within the cervical spine. Moderate multilevel neural foraminal stenosis is due to uncovertebral hypertrophy and facet arthrosis. IMPRESSION: 1. Status post multilevel cervical decompression. No residual epidural fluid abscess. 2. Postoperative findings within the posterior cervical and upper thoracic spines, including a rim-enhancing 4.7 x 2.6 x 1.5 cm fluid collection. This is nonspecific although not unexpected in the early postoperative setting. A seroma is favored. 3. Patent central canal within the cervical spine. Moderate multilevel neural foraminal stenosis due to facet arthrosis and uncovertebral hypertrophy. 4. 1.6 x 1 cm enhancing intradural extramedullary mass at the T4 level. This is suggestive of a meningioma which results in severe central canal stenosis with cord compression. No cord edema. ACT 112: Negative or not required by law. Electronically signed by: Edwin Spring M.D. 06/21/2024 5:58 PM Discharge Plan Visit Data Chief Complaint: Referred by Doctor Stated Complaint: HAS STINT IN, MRI REQ, CHECK ON INFECTION, DOC REF ED Provider: Guillermo Jackson Discharge Problem: Spinal epidural abscess Patient Disposition: Admitted As Inpatient Condition: Good Discharge Instructions Interventions: ED Discharge Assessment Last Done: 06/21/24 20:06
[2024-06-21 15:02] LABS: Alanine Aminotransferase 9 U/L (7-52); Albumin Globulin Ratio 1.5 (0.9-2); Albumin Level 4.2 gm/dl (3.4-5.0); Alkaline Phosphatase 84 U/L (34-104); Anion Gap 5 (3-11); Aspartate Aminotransferase 21 U/L (13-39); BUN Creatinine Ratio 21.4 (10-20); Bilirubin,Total 0.4 mg/dl (0.2-1.0); Blood Urea Nitrogen 15 mg/dl (6-23); C Reactive Protein 0.57 mg/dl (0-0.5); Calcium 9.3 mg/dl (8.6-10.3); Carbon Dioxide 30 mmol/L (21-32); Chloride 104 mmol/L (98-107); Globulin 2.8 gm/dl (2.5-4.0); Glucose 91 mg/dl (70-99(Fasting)); Sodium 139 mmol/L (136-145)
--- NOTE | 2024-06-21 16:28 | Communication Note ---
Date of Service: June 21, 2024 Hx of complicating medical issues since April 2024, with ventral epidural abscess extending to the upper lumbar spine. Hospitalist team was called for possible admission earlier this afternoon. Reason is that infectious disease, Dr. Shiv Cespedes, is requesting MRI with and without contrast of the cervical, thoracic and lumbar spine. The pt has no complaints today, is doing well, participating in ADLs such as laundry, walking around the house, etc per Mariangel Sullivan who I spoke with on the phone. No complaints of fever, chills, sweats, apparent illness. Neurosurgery at [facility], Dr. Bhanu Montero saw the patient yesterday on 06/20 and she looked well. MRIs were scheduled outpatient on Jul 26. Patient family friends, Dr. Drew Sullivan and his Rebecca Sullivan, picked up the [facility] on 06/19 as that facility said she had met the end of her acute rehab stay and was being discharged. Patient went home with tunneled PICC line in place and IV cefazolin 2 g IV daily finished on 06/19 for the 2-week timeframe for MSSA. Imaging has been requested to further determine IV antibiotic therapy. I have reached out to ID for faxing of prescription for the imaging studies however this physician did not respond via [place] text after being asked for outpatient imaging studies to be sent to MRI department. The PICC line remains in place. The [facility] are also requesting PICC line flushes as they are in between getting medical assistance for the patient, and have no supplies to manage the PICC line at home since discharge. She does not have Home health services because of lack of insurance. I spoke with the neurosurgeon Dr. Bhanu Montero via [place] text and he was not in the office today, but confirmed plans to fax script for the imaging to [phone] in MRI department for the patient tomorrow 06/22. Pt will have blocked time at [facility] MRI location for 11:30A on Wednesday per Cammy in MRI, for the lumbar and thoracic spine with and without contrast. ER will obtain the imaging of the c-spine with and without contrast today.
--- NOTE | 2024-06-21 17:20 | History & Physical Report ---
Date of Service June 21, 2024 Assessment & Plan (1) Spinal epidural abscess: (2) Back pain: (3) Osteomyelitis of thoracic vertebra: (4) Vertebral abscess: Plan 54 yo F s/p Abdominal and back pain, found initially on April 20, 2024 patient was transferred from [facility] to [facility], spinal infection, T8-T9 osteomyelitis, discitis and epidural abscess, blood cultures positive for MSSA bacteremia. Neurosurgery was consulted for epidural hematoma, MRI showed epidural abscess extending from skull base through the upper lumbar spine, and their team remains on board for her care. 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 She underwent emergent decompression, source control laminectomy of C7-T1 and T8- T10. MSSA blood culture on 04/21/2024, repeat blood culture on 04/23 showed no growth. NARINDER was negative for vegetation. Discharged to rehab [facility] on 06/01 from [facility] until 06/19. Patient was maintained on Ancef 2 g IV every 8 hours throughout that hospital stay with tentative end date placed on 06/18/2024 with the caveat that ID wanted repeat imaging prior to the discontinuation of antibiotics. ID recommended to continue cefazolin with end date 06/18/2024 and follow up with MRI spine with IV contrast and to monitor clinical status. Unfortunately, there was an * next to the stop date in ID's note on 04/25, and it appears that there is miscommunication and that every note subsequently after 04/25/24 says stop on 06/18. This is why antibiotics were discontinued at the rehab facility. She was discharged home, no antibiotics on board, and MRI imaging scheduled initially for Jul 25, over 30 days away. ID has confirmed they want continued antibiotics at this time after discussion via phone and tiger text. IV ancef 2 g Q8H Consult their team during this stay, will need outpatient follow up next week to discuss imaging. Antibiotic course to be continued after discharge until they view imaging studies and make determination. PICC line to be removed after completion of antibiotic course. I have arranged for repeat MRI imaging as soon as possible. Another barrier includes 6 hours of MRI imaging time, and the facility here at [facility] only has one MRI machine. It would be near impossible to have these images completed tonight. Therefore outpatient imaging has been arranged for Wednesday, 11:30A at [facility] location. Pt had follow-up with neurosurgery at [facility] 06/20/2024. I personally discussed with Dr. Montero the patients care and he reports she was doing very well yesterday. He plans to send fax to Cammy in MRI at [phone] for imaging script to MRI department tomorrow on 06/22. Please follow prior to dc that this has been recieved. Discussion was held with family friend Rebecca Sullivan at [phone] via phone, updated multiple times. She does not have supplies to care for the PICC at home. Pt insurance lapsed recently and Medical Assistance is now set back up. Will need home health supplies and home health referrals by CM prior to discharge. Per Discussion also held with ID Social Work, Wendy Hoffman with [facility], aware of current status. DVT ppx: teds, scds, ambulatory Lines: Right tunneled PICC FEN/GI: Regular diet CODE: Full code Dispo: From home, likely to remain in the hospital x 1-2 days A total of 75 minutes were spent with greater than 50% of that time face to face with the patient, personally reviewing all current laboratories, imaging studies, past medication reconciliation, outpatient chart review, and discussion with specialists to collaborate care for the patient with attending. Please see attending documentation for corrections and/or additions. Prolonged time of over 60 minutes spent with discussion with consultants including neurosurgery, Infectious disease, family members, and case management with [facility]. History of Present Illness Chief Complaint: Need for IV antibiotics Primary Care Provider: Juani Goodrich DO This is a 54 yo F with complicated medical history, presenting from outpatient at home status, after being discharged by [facility] facility on 06/19 with tunneled PICC line in place, and no further antibiotic therapy. ID has recommended continued antibiotics of ancef 2 g IV Q8H until follow up imaging with complete spine MRI with and without contrast. Due to pt discharge, she has been off antibiotics since 06/19 with line still present in the chest wall. Imaging of the cspine is ordered for today in the ER, and other arrangements have been made to for outpatient thoracic and lumbar spine imaging on Wednesday at 11:30a. Today the patient feels very well, she has no acute complaints, no back pain or tenderness, no fevers, chills or sweats. Has no difficulty ambulating. Lives at home by herself in an apartment. Hospitalization Summary: 04/18/2024 presented to [facility] ER-Symptoms started 3 days prior with abdominal pain and back pain. She was seen 3 days prior also in the ED where she was found with significant fecal impaction and a CT abdomen. She was seen by General surgery outpatient where she was found with worsening back p ain and ambulatory dysfunction. Additionally, lower thoracic vertebral bodies was noted and was greatest at T9. Thoracic progression on prior thoracic findings at T8-T9 with left paravertebral phlegmon/developing abscess and consistent with osteomyelitis. 04/20/2024 transferred from [facility] to [facility] for further treatment For surgical evaluation for possible spinal infection ratio but was noted to have difficulty ambulating, was found to be septic on admission with white cell count 27, elevated inflammatory markers. Imaging revealed left-sided pleural effusion and vertebral imaging concerning for T8-T9 osteomyelitis, diskitis, and epidural abscess. Blood culture grew MSSA bacteremia, repeat blood culture showed no growth. Neurosurgery and Orthopedic Surgery were consulted for epidural hematoma, patient underwent MRI which showed epidural abscess extending from skull base through upper lumbar spine and also in the lower spine. Also incidental extramedullary tumor of the upper thoracic spine likely meningioma. Patient did not have any neurological deficits, or signs of cord compression, no weakness or hyperreflexia, no sensory level. Findings positive for severe neutral rigidity and back pain. Neurosurgery was consulted and emergently took the patient to the OR for a decompression, source control and laminectomy of C7-T1 and T8-T10. Postop course was not complicated, no new weakness. OR culture were followed, showed no growth. Patient had MSSA grown on blood culture from 04/21/2024, repeat blood culture on 04/23/2024 showed no growth. NARINDER negative for vegetation. Discharged from [facility] 06/01/24 to [facility] where she underwent extensive rehabilitation. [facility] 06/01/2024 to 06/19/2024. Allergies Allergy/AdvReac Type Severity Reaction Status Date / Time No Known Allergies Allergy Verified 06/21/24 15:08 Home Medications Medication Instructions Recorded Confirmed Type No Known Home Medications 04/18/24 06/21/24 History Past Med/Surg History Problem List (Updated 06/21/24 @ 16:53 by Guillermo Jackson MD) Spinal epidural abscess (Acute) Back pain Back problem Medical History (Updated 06/21/24 @ 16:53 by Guillermo Jackson MD) Transaminitis Hyponatremia Pericardial effusion Pleural effusion on left Vertebral abscess Osteomyelitis of thoracic vertebra Discitis thoracic region Sepsis Surgical History (Updated 06/20/24 @ 11:32 by Vivian Sinclair RN) H/O laminectomy (04/22/24) LAMINECTOMY DECOMPRESSION SPINAL CORD POSTERIOR LUMBAR [facility] History of wisdom tooth extraction Family History Other Adopted Social History Smoking Status: Never smoker Hx Alcohol Use: No Hx Substance Use: No Preferred Language: Estonian Communication Ability: Effective Cigar Sorter Required: No Beliefs That Will Affect Care: None marital status: Single Current Living Situation: Alone current occupational status: employed 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[employer], 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 How many Children do You have: 0 Feels Safe at Home: Yes Diet: regular during the past year weight has: remained stable Assistive Devices: None Review of Systems Review of Systems: Constitutional: No fever, sweats or chills Eyes: No diplopia, no worsening or blurred vision ENT: normal hearing, no trouble swallowing Respiratory: No cough, sputum, dyspnea at rest or on exertion Cardiovascular: No chest pain, tightness or palpitations Abdomen: No pain, nausea, vomiting, diarrhea or constipation Musculoskeletal: No joint pain, calf pain, swelling Neurologic: No weakness, numbness/tingling, or balance problems Psychiatric: No anxiety or depression Skin: No rash or itch Physical Exam Physical Exam: General: awake, alert, no apparent distress Head: Normocephalic, atraumatic ENT: PERRL, EOMI, no pharyngeal exudate, mucous membranes moist Chest: Clear to auscultation, on room air, no adventitious breath sounds Cardiac: Regular rate and rhythm, no murmur, no JVD, normal peripheral pulses, good capillary refill Abdominal: NABS x 4 quadrants, soft, nondistended, nontender to palpation, no rebound or guarding Back: healed spinal incisions, no pain with palpation, no obvious deformity. Extremities: Normal inspection, no peripheral edema or erythema, calfs nontender to palpation Psych: Normal mood and affect Neuro: AAO x 3, strength intact bilaterally and rated 5/5, no motor deficits, speech is clear, no peripheral sensory deficits Results & Data Results & Data Vital Signs (Past 12 Hours) Vital Signs Temp Pulse Pulse Resp BP BP Pulse Ox 06/21/24 16:09 78 16 146/86 H 99 06/21/24 13:32 36.4 C L 86 14 144/84 H 98 O2 Del Method 06/21/24 16:09 Room Air 06/21/24 13:32 Room Air Laboratory Results 06/21/24 14:30 WBC 7.92 RBC 3.95 L Hgb 11.8 L Hct 36.5 L MCV 92.4 MCH 29.9 MCHC 32.3 RDW Std Deviation 47.1 H RDW Coeff of Mita 13.8 Plt Count 323 MPV 10.2 Immature Gran % (Auto) 0.4 Neut % (Auto) 70.2 Lymph % (Auto) 17.4 [place] % (Auto) 9.0 Eos % (Auto) 2.1 Baso % (Auto) 0.9 Neut # (Auto) 5.56 Lymph # (Auto) 1.38 [place] # (Auto) 0.71 H Eos # (Auto) 0.17 Baso # (Auto) 0.07 Immature Gran # (Auto) 0.03 ESR 21 Sodium 139 Potassium 4.0 Chloride 104 Carbon Dioxide 30 Anion Gap 5 BUN 15 Creatinine 0.70 Est Cr Clr Drug Dosing Not Reportable eGFR 101.44 BUN/Creatinine Ratio 21.4 H Glucose 91 Calcium 9.3 Total Bilirubin 0.4 AST 21 ALT 9 Alkaline Phosphatase 84 C-Reactive Protein 0.57 H Total Protein 7.0 Albumin 4.2 Globulin 2.8 Albumin/Globulin Ratio 1.5 Code Status & VTE Plan Code Status Full code Supervising Physician Co-Signing Physician Notes Attending Addendum: Case reviewed with the advanced practitioner. I have personally performed a history and physical examination on the patient. I have reviewed the advanced practitioner's documentation on the date of service referenced in note, and I agree with, and take responsibility for the plan of care. please refer to her notes for full details patient seen and examined, records reviewed by myself as well on exam, patient Seen resting in bed, sitting up, in good spirits, very pleasant States she still has some mild discomfort around the upper lumbar spine, but denies fevers or chills, leg weakness, numbness or pain She is participating with physical therapy, and has been ambulating better with a walker since the surgery no other symptoms VS noted and reviewed oriented x 3 , not in distress, speaks in sentences with no effort nor accessory muscle use normal rate, regular rhythm, no murmurs clear breath sounds bilaterally non distended, soft, nontender Back: Midline surgical scar healing well, no hematoma, bleeding or discharge, mild tenderness over the upper lumbar spine area no bipedal edema, erythema, warmth no neuro deficits all labs, imaging noted and reviewed ASSESSMENT AND PLAN> Epidural abscess from skull base to lumbar spine Status post source control, decompression, laminectomy at [facility] Has received IV antibiotics at the correction facility via PICC line, last day June 18, 2024 Sent to the ER for MRI of the entire spine apparently per ID recommendations-Dr. Ball Clarified with Dr. Mccoy, he is actually recommending to continue with IV antibiotics until Results of repeat MRI of the spine is available and after ou tpatient follow-up with him IV cefazolin resumed MRI scheduled as outpatient this coming Wednesday other diagnoses and plan of care as per advanced practitioner's notes Robson Monge MD
[2024-06-21] MEDS: GADOBUTROL 65ML VIAL IV ONE (17:29)
--- NOTE | 2024-06-21 18:00 | Magnetic Resonance Report ---
MRI OF THE CERVICAL SPINE WITH AND WITHOUT CONTRAST CLINICAL HISTORY: epidural abscess, ? improving or worsening, ID req COMPARISON: CTA of the neck and cervical spine CT April 18, 2024. TECHNIQUE: Utilizing a 1.5 Laury magnet and dedicated coil, multiplanar, multiecho imaging of the ce rvical spine was performed before and after intravenous administration of 6.2 of Gadavist. FINDINGS: Alignment of the cervical spine is anatomic. Vertebral body heights are maintained. No skip ow edema or marrow placement is present. There are no cervical spine fractures. Cervical cord signal and caliber are normal. No residual epidural fluid collection is identified status post multilevel de compression within the cervical spine. Postoperative findings within the posterior aspect of the cerv ical spine are noted, including a rim-enhancing fluid collection which extends from the mid cervical spine to the upper thoracic spine. This measures approximately 4.7 x 2.6 x 1.5 cm. This is postsurgic al. No additional fluid collections are present. Enhancing intradural extramedullary mass within the canal at the T4 level measures 1.6 x 1 cm. Axial images through the portion of the spine were not obt ained. This results in severe central canal stenosis with cord compression. There is no cord edema. T his is suggestive of meningioma. No additional intracanalicular abnormalities are identified. There i s no central canal stenosis within the cervical spine. Moderate multilevel neural foraminal stenosis is due to uncovertebral hypertrophy and facet arthrosis. IMPRESSION: 1. Status post multilevel cervical decompression. No residual epidural fluid abscess. 2. Postoperative findings within the posterior cervical and upper thoracic spines, including a rim-en hancing 4.7 x 2.6 x 1.5 cm fluid collection. This is nonspecific although not unexpected in the early postoperative setting. A seroma is favored. 3. Patent central canal within the cervical spine. Moderate multilevel neural foraminal stenosis due to facet arthrosis and uncovertebral hypertrophy. 4. 1.6 x 1 cm enhancing intradural extramedullary mass at the T4 level. This is suggestive of a menin gioma which results in severe central canal stenosis with cord compression. No cord edema. ACT 112: Negative or not required by law. Electronically signed by: Edwin Spring M.D. 06/21/2024 5:58 PM
[2024-06-21] MEDS: ceFAZolin 2000MG 2,000 MG/15 ML SYR IV SCH (18:38)
--- OUTSIDE RECORDS SUMMARY | 2024-06-21 19:57 | External Medical Summary | Summary of Care ---
Author Name Unknown Organization [facility] Address [address] [place] [address] Phone [phone] Care Team Providers Care Underwriting Analyst Name Role Phone Unavailable Primary Care Provider Unavailabl e Encounter Details Date Type Department Care Team (Late st Contact Info) Description 06/02/2024 Telephone Infectious Disease, [facility] [address], [place] [id number] Shiv Cespedes, [address], [place] [id number] Allergies No known active allergiesdocumented as of this encounter (statuses as of 06/20/2024) Medications Medication Sig Dispensed Refills Start Date End Date Status Multivitamin Adult Oral Tablet Take 1 Tablet by mouth in the morning. Active Simethicone 80 MG Oral Tablet Chewable (Mylicon) Take 1 Tablet by mouth every 6 hours as needed for Gas. 30 Tablet 06/01/2024 Active risperiDONE 0.5 MG Oral Tablet (RisperDAL) Take 1 Tablet by mouth in the morning and 1 Tablet at noon and 1 Tablet in the evening. 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 documented as of this encounter (statuses as of 06/20/2024) Resolved Problems Problem Noted Date Diagnosed Date Resolved Date Acute hypoxemic respiratory failure 04/22/2024 04/28/2024 Bacteremia due to Staphylococcus 04/20/2024 04/28/2024 Other constipation 04/20/2024 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 04/28/2024 Acute osteomyelitis 04/20/2024 04/28/20 24 documented as of this encounter (statuses as of 06/20/2024) Immunizations Name Administration Dates Next Due Seasonal Influenza, Trivalent, (IIV3), PF, (Fluz one) 05/10/2024 documented as of this encounter Social History Tobacco Use Types Packs/Day Years Used Date Smoking Tobacco: Never Smokeless Tobacco: Never Alcohol Use Standard Drinks/Week Comments Never 0 (1 standard drink = 0.6 oz pur e alcohol) Utilities Answer Date Recorded Do you have trouble paying y our heating, water, or electric bill? (Adult - for ages 18 years and over) Not on file 04/18/2024 Is your family able to pay t he heat, water, or electric bill? (Household - for ages 0-17 years) Not on file 04/18/2024 Does your family have access to good internet? (Household - for ages 0-17 years) Not on file 04/18/2024 Social Connections Answer Date Recorded How often do you feel lonely or isolated from those around you? (Adult - for ages 18 years and over) Not on file 04/18/2024 Sex and Gender Information Value Date Recorded Sex Assigned at Not on file Gender Identity Not on file Sexual Orientation Not on file Job Start Date Occupation Industry Not on file Not on file Not on file documented as of this encounter Functional Status Functional Status Response Date of Assess ment Are you deaf or do you have serious difficulty h earing? No 04/22/2024 Are you blind or do you have serious difficulty seeing, even when wearing glasses? No 04/22/2024 Do you have serious difficul ty walking or climbing stairs? (5 years old or older) Yes 05/09/2024 Do you have difficulty dress ing or bathing? (5 years old or older) No 04/22/2024 Because of a physical, menta l, or emotional condition, do you have difficulty doing errands alone such as visiting a doctor s office or shopping? (15 years old or older) No 04/22/20 24 Cognitive Status Response Date of Assessm ent Because of a physical, menta l, or emotional condition, do you have serious difficulty concentrating, remembering, or making decisions? (5 years old or older) No 04/22/2024 documented as of this encounter Miscellaneous Notes * Telephone Encounter - Wendy Hoffman LPN - 06/20/2024 2:[address] Cespedes, the SNF discharged this patient without further abx with her tunneled line still in. She isn't scheduled for MRI's until 07/25, which can not be moved up due to time slot availability. Please advise what to do at this point. Thank you, Wendy Hoffman LPN Nurse Navigator ID * Telephone Encounter - Diana August OSA - 06/20/2024 1:06 PM EDT Mariangel called in to see if there was an update. She stated she was to receive call back from Wendy per previous call. Picc line needs to be removed . Please call to advise . * Telephone Encounter - Nanda Real OSA - 06/20/2024 9:58 AM EDT Mariangel is calling stating that pt was released from Rehab without any direction regarding pic line. The line wasn't pulled at rehab because they couldn't remove it. Pt has no home health or anything to flush the pic line with. Please call Mariangel that is who pt is living with and Mariangel is taking care of pt. * Telephone Encounter - Clover Lewis OSA - 06/02/2024 2:39 PM EDT Called and left message for patient to call back * Telephone Encounter - Shiv Cespedes DO - 06/02/2024 12:34 PM EDT This patient was supposed to follow up with ID but did not. Please contact them and schedule a f/u appt. I will see them at my next open appointment. (or they can choose to see one of my partners). Document their response and forward it to me. If you cannot reach them by phone, send a letter. Thank you! Shiv Cespedes DO Infectious Diseases documented in this encounter Plan of Treatment Upcoming Encounters Date Type Department Care Team (Late st Contact Info) Description 07/25/2024 4:30 PM EST Appointment [facility] [address] [id number] 07/25/2024 5:15 PM EST Appointment KEY [address] [address] 07/25/2024 5:45 PM EST Appointment KEY [address] [address] 08/25/2024 9:30 AM EST Office Visit Neurosurgery, [facility] [address] [place] [address] Bhanu Montero MD [address] [place] [address] Health Maintenance Due Date Last Done Comments Lipid Panel 1968 Depression Screening 1980 DTap/Tdap Vaccines (1 - Tdap) 02/13/1987 Hepatitis B Vaccine (1 of 3 - 19+ 3-dose series) 02/13/1987 Pap Smear 02/13/1989 Cervical Cancer Screening 02/13/1998 HPV/Co-Test 02/13/1998 Mammogram 2008 Cologuard 02/13/2013 Colonoscopy 02/13/2013 Colorectal Cancer Screening 02/13/2013 Fecal Occult Blood Test 02/13/2013 Sigmoidoscopy 02/13/2013 Zoster Vaccines (1 of 2) 02/13/2018 COVID-19 Vaccine (3 - 2023-2 5 season) 2024 01/06/2021, 12/16/2020 Influenza Vaccine (FLU shot) Completed 05/10/2024 HPV (Gardasil) Vaccine Aged Out No lo nger eligible based on patient's age to complete this topic MENINGOCOCCAL (MENACTRA/MENVEO) Aged Out No longer eligible b ased on patient's age to complete this topic Pneumococcal Vaccine: Pediatrics (0 to 5 Years) and At-Risk Patients (6 to 64 Years) Aged Out No longer eligible b ased on patient's age to complete this topic documented as of this encounter Medical Devices Implanted Type Area Grain Operations Manager Device Identifier Shelf Expiration Date Model / Serial / Lot Cath Pwr Picc Solo Inj 4f - [id number] Implanted:Qty : 1 on 05/01/2024 at [facility] CR BARD : [employer]ESS SYSTEMS [id number] 08/22/2025 [id number] / / [id number] Cath Cv Lumen Single 5fr - [id number] Implanted:Qty : 1 on 05/06/2024 at [facility] Right: Chest CR BARD : PERIPHERAL VASCULAR [id number] 07/22/2027 [id number] / / [id number] documented as of this encounter Advance Directives * No Code (Latest Code Status on File) Date Activated Date Inactivated Comments 04/22/2024 8:43 PM 06/01/2024 3:46 PM This order reflects the patients wishes and were consensually agreed upon. Question Answer Comments Discussion of Advance Directives occurred with: Patient * Full Code Date Activated Date Inactivated Comments 04/22/2024 6:14 PM 04/22/2024 8:43 PM This order r eflects the patients wishes and were consensually agreed upon. Question Answer Comments Discussion of Advance Direct sven occurred with: Not Discussed due to patient's condition Does the patient have a Living Will? No Does the patient have Health Care Power of Unishear Operator? No * No Code Date Activated Date Inactivated Comments 04/20/2024 7:15 PM 04/22/2024 6:14 PM This order r eflects the patients wishes and were consensually agreed upon. Question Answer Comments Discussion of Advance Directives occurred with: Patient
--- OUTSIDE RECORDS SUMMARY | 2024-06-21 19:57 | External Medical Summary | Summary of Care ---
Author Name Unknown Organization [facility] Address [address] [place] [address] Phone [phone] Care Team Providers Care Clinical Unit Coordinator Name Role Phone Unavailable Primary Care Provider Unavailabl e Reason for Referral * Evaluate & Treat - Unlimited Visits (Within 10 days (routine)) - Pending Review Specialty Diagnoses / Procedures Referred By Anaid saldana Referred To Contact Physical Therapy / Physical Medicine And Rehab Diagnoses Status post laminectomy Spondylosis of thoracic region without myelopathy or radiculopathy Eloisa Regalado PA-C [address] [place] [address] Referral ID Status Reason Start Date Expiration Date Visits Requested Visits Authorized [id number] Pending Review Specialty Services Required [phone] Question Answer Referral Priority Within 10 days (routine) Where should this appointment be scheduled? [facility] Encounter Details Date Type Department Care Team (Latest Contact Info) Description 06/20/2024 9:00 AM EDT Office Visit Neurosurgery, [place] [address] [place] [address] Bhanu Montero MD [address] [place] [address] Status post laminectomy*; Spondylosis of thoracic region without myelopathy or radiculopathy Allergies No known active allergiesdocumented as of [...] (15 years old or older) No 04/22/20 Cognitive Status Response Date of Assessm ent Because of a physical, menta l, or emotional condition, do you have serious difficulty concentrating, remembering, or making decisions? (5 years old or older) No 04/22/2024 documented as of this encounter Progress Notes * Bhanu Montero MD - 06/20/2024 9:26 AM EDT PROGRESS NOTE - [place] [facility] [place] [address] Name: Rhonda Keller Date: 06/20/2024 Time: 9:26 AM 54-year-old woman well known to me. She underwent a spinal decompression back in March now about 2months ago for an epidural abscess. In addition she has an incidental intradural tumor likely meningioma. I am seeing her in follow up. She comes with a data conversion developer. She is developmentally delayed. Overall she was looking quite well, in good spirits, good strength, she ambulates with a walker that is new since the discharge from the hospital. Her data conversion developer tells me that her gait was never normal although now she has to me looks like a subtle myelopathic gait. She does have brisk patellar reflexes. Incisions are healing well. I am not sure if this is chronic issues related to the presence of the a spinal epidural abscess versus the presence of the meningioma. Plan to follow with serial imaging and clinically. Right now she should be doing physical therapy. Apparently she was completed the antibiotics with plan to removethe PICC line. I will see her back in perhaps 2 months with updated imaging to look at both the abscess and the meningioma. She otherwise has no complaints although it is a little bit difficult to get a detailed history and physical due to the developmental delay. Patient are data conversion developer voiced understanding and requests to proceed. All questions answered. Follow up 2 months. PAST MEDICAL HISTORY: No past medical history on file. PAST SURGICAL HISTORY: Past Surgical History: Procedure Laterality Date ENDO DECOMPRESS SPINAL CORD W/LAMINOTOMY, CERVICAL N/A 04/22/2024 LAMINECTOMY DECOMPRESSION SPINAL CORD POSTERIOR CERVICAL performed by Bhanu Montero MD at [place] [facility] [place]O DECOMPRESS SPINAL CORD W/LAMINOTOMY, THORACIC N/A 04/22/2024 LAMINECTOMY DECOMPRESSION SPINAL CORD POSTERIOR THORACIC performed by Bhanu Montero MD at [place] [facility] [place] IR VENOUS ACCESS NON-MEDIPORT 05/01/2024 IR VENOUS ACCESS NON-MEDIPORT 05/06/2024 REMOVE LUMBAR SPINE LAMINA, 3+ SEGS N/A 04/22/2024 LAMINECTOMY DECOMPRESSION SPINAL CORD POSTERIOR LUMBAR performed by Bhanu Montero MD at [place] [facility] [place] FAMILY HISTORY: No family history on file. SOCIAL HISTORY: Social History Tobacco Use Smoking status: Never Smokeless tobacco: Never Vaping Use Vaping status: Never Used Substance Use Topics Alcohol use: Never Drug use: Never Current Outpatient Medications: risperiDONE 0.5 MG Oral Tablet (RisperDAL), Take 1 Tablet by mouth in the morning and 1 Tablet at noon and 1 Tablet in the evening., Disp: 90 Tablet, Rfl: 0 risperiDONE 0.5 MG Oral Tablet (RisperDAL), Take 1 tablet by mouth three times a day (morning, noon, and evening), Disp: 90 Tablet, Rfl: 0 Simethicone 80 MG Oral Tablet Chewable (Mylicon), Take 1 Tablet by mouth every 6 hours as needed for Gas., Disp: 30 Tablet, Rfl: 0 Simethicone 80 MG Oral Tablet Chewable (Mylicon), Chew & swallow 1 tablet every 6 hours as needed for gas, Disp: 30 Tablet, Rfl: 0 Multivitamin Adult Oral Tablet, Take 1 Tablet by mouth in the morning., Disp: , Rfl: ALLERGIES: Patient has no known allergies. VITALS: LMP (LMP Unknown) Bhanu Montero [facility] This document was dictated using voice recognition software. Please excuse any errors. documented in this encounter Plan of Treatment Upcoming Encounters Date Type Department Care Team (Late st Contact Info) Description 07/25/2024 4:30 PM EST Appointment MRI, [address] [address] 07/25/2024 5:15 PM EST Appointment [facility], [address] [address] 07/25/2024 5:45 PM EST Appointment [facility], [address] [address] 08/25/2024 9:30 AM EST Office Visit Neurosurgery, [address] [address] Bhanu Montero MD [address] [place] [address] Scheduled Referrals Name Type Priority Associated Diagnoses Orde r Schedule PHYSICAL THERAPY REFERRAL OP Referral Within 10 days (routine) Status post laminectomy Spondylosis of thoracic region without myelopathy or radiculopathy Ordered: 06/20/2024 Health Maintenance Due Date Last Done Comments [...] Vaccines (1 of 2) 02/13/2018 COVID-19 Vaccine (2023-2 5 season) 2024 01/06/2021, 12/16/2020 Influenza Vaccine [...] this encounter Medical Devices Implanted Type Area Professional Tutor Device Identifier Shelf Expiration Date Model / Serial / Lot Cath Pwr Picc Solo Inj 4f - [id number] Implanted:Qty : 1 on 05/01/2024 at [facility] CR BARD : ACCESS SYSTEMS [id number] 08/22/2025 [id number] / / [id number] Cath Cv Lumen Single 5fr - [id number] Implanted:Qty : 1 on 05/06/2024 at [facility] Right: Chest CR BARD : PERIPHERAL VASCULAR [id number] 07/22/2027 [id number] / / [id number] documented as of this encounter Visit Diagnoses Diagnosis Status post laminectomy- Primary Other postprocedural status Spondylosis of thoracic region without myelopathy or radiculopathy Thoracic spondylosis without myelopathy documented in this encounter Advance Directives * No Code [...] the patient have Health Care Power of Manager Shift? No * No Code Date Activated Date Inactivated Comments 04/20/2024 7:15 PM 04/22/2024 6:14 PM This order r eflects the patients wishes and were consensually agreed upon. Question Answer Comments Discussion of Advance Directives occurred with: Patient
--- OUTSIDE RECORDS SUMMARY | 2024-06-21 19:57 | External Medical Summary | Summary of Care ---
Author Name Unknown Organization [facility] Address [address] [place] [address] Phone [phone] Care Team Providers Care Leather Worker Name Role Phone Unavailable Primary Care Provider Unavailabl e Encounter Details Date Type Department Care Team (Late st Contact Info) Description 06/02/2024 Telephone Infectious Disease, [place] [address] [place], [place] [phone] Shiv Cespedes, [address] [place], [place] [phone] Allergies No known active allergiesdocumented as of this encounter (statuses as of 06/21/2024) Medications Medication Sig Dispensed Refills Start Date [...] as of this encounter (statuses as of 06/21/2024) Active Problems Problem Noted Date Diagnosed Date Altered mental status 05/03/2024 Pleural effusion on left 04/27/2024 Urinary retention 04/25/2024 Adjustment disorder 04/25/2024 Status post laminectomy 04/24/2024 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 documented as of this encounter (statuses as of 06/21/2024) Resolved Problems Problem Noted Date Diagnosed Date Resolved Date Acute hypoxemic respiratory failure 04/22/2024 04/28/2024 Bacteremia due to Staphylococcus 04/20/2024 04/28/2024 Other constipation 04/20/2024 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 04/28/2024 Acute osteomyelitis 04/20/2024 04/28/20 24 documented as of this encounter (statuses as of 06/21/2024) Immunizations Name Administration Dates Next Due Seasonal [...] encounter Miscellaneous Notes * Telephone Encounter - Deepti Schofield OSA - 06/21/2024 8:19 AM EDT Can you please call [phone] is the number to call them back. * Telephone Encounter - Wendy Hoffman LPN [...] Info) Description 07/25/2024 4:30 PM EST Appointment [facility], [address] [address] 07/25/2024 5:15 PM EST Appointment [facility], [address] [address] 07/25/2024 5:45 PM EST Appointment [facility], [address] [address] 08/25/2024 9:30 AM EST Office Visit Neurosurgery, [address] [address] [facility] [address] [facility] [address] Health Maintenance Due Date Last Done Comments [...] this encounter Medical Devices Implanted Type Area Clinical Application Manager Device Identifier Shelf Expiration Date Model / Serial / Lot Cath Pwr Picc Solo Inj 4f - [id number] Implanted:Qty : 1 on 05/01/2024 at [facility] CR BARD : ACCESS SYSTEMS [id number] 08/22/2025 [id number] / / [id number] Cath Cv Lumen Single 5fr - [id number] Implanted:Qty : 1 on 05/06/2024 at [facility] Right: Chest CR BARD : PERIPHERAL VASCULAR [id number] 07/22/2027 [id number] / / [id number] documented as of this encounter Advance Directives * No Code (Latest Code Status on File) Date Activated Date Inactivated Comments 04/22/2024 8:43 PM 06/01/2024 3:46 PM This order reflects the patients wishes and were consensually agreed upon. Question Answer Comments Discussion of Advance Directives occurred with: Patient * Full Code Date Activated Date Inactivated Comments 04/22/2024 6:14 PM 04/22/2024 8:43 PM This order reflects the patients wishes and were consensually agreed upon. Question Answer Comments Discussion of Advance Direct sven occurred with: Not Discussed due to patient's condition Does the patient have a Living Will? No Does the patient have Health Care Power of Sales Superintendent? No * No Code Date Activated Date Inactivated Comments 04/20/2024 7:15 PM 04/22/2024 6:14 PM This order r eflects the patients wishes and were consensually agreed upon. Question Answer Comments Discussion of Advance Directives occurred with: Patient
--- OUTSIDE RECORDS SUMMARY | 2024-06-21 19:57 | External Medical Summary | Summary of Care ---
Author Name Unknown Organization [facility] Address [address] [place] [address] Phone [phone] Care Team Providers Care Phone Screener Name Role Phone Unavailable Primary Care Provider Unavailabl e Encounter Details Date Type Department Care Team (Late st Contact Info) Description 06/02/2024 Telephone Infectious Disease, [place] [address] [place], [place] [phone] Shiv Cespedes, [address] [place], [place] [phone] Allergies No known active allergiesdocumented as of [...] 8:19 AM EDT Can you please call [phone] is the number to call them back. [...] Info) Description 07/25/2024 4:30 PM EST Appointment [facility], [address] [address] 07/25/2024 5:15 PM EST Appointment [facility], [address] [address] 07/25/2024 5:45 PM EST Appointment [facility], [address] [address] 08/25/2024 9:30 AM EST Office Visit Neurosurgery, [address] [address] [facility] [address] [facility] [address] Health Maintenance Due Date Last Done Comments [...] this encounter Medical Devices Implanted Type Area Member Services Representative Device Identifier Shelf Expiration Date Model / Serial / Lot Cath Pwr Picc Solo Inj 4f - [id number] Implanted:Qty : 1 on 05/01/2024 at [facility] CR BARD : ACCESS SYSTEMS [id number] 08/22/2025 [id number] / / [id number] Cath Cv Lumen Single 5fr - [id number] Implanted:Qty : 1 on 05/06/2024 at [facility] Right: Chest CR BARD : PERIPHERAL VASCULAR [id number] 07/22/2027 [id number] / / [id number] documented as of this encounter Advance Directives [...] the patient have Health Care Power of Glue Line Operator? No * No Code Date Activated Date Inactivated Comments 04/20/2024 7:15 PM 04/22/2024 6:14 PM This order r eflects the patients wishes and were consensually agreed upon. Question Answer Comments Discussion of Advance Directives occurred with: Patient
--- OUTSIDE RECORDS SUMMARY | 2024-06-21 19:59 | External Medical Summary ---
Author Name Unknown Address Unknown Organization [id number]:LABORATORY [facility] [place] - [address] [place] [address] Ave. [facility] [address] Laboratory Report Ordering Provider Test Date Status SEBASTIAN DENNY 05/24/2024 06:43:00 Final Observation Date Value Abnormality Reference (Units ) Status WBC, Total 05/24/2024 06:43:00 5.46 4.00-10.80 (K/uL) Final RBC 05/24/2024 06:43:00 3.52 3.85-5.15 (M/uL) Final Hemoglobin 05/24/2024 06:43:00 10.7 Below low normal 12.0-15.3 (g/dL) Final HCT 05/24/2024 06:43:00 34.4 Below low normal 36.0-45.2 (%) Final MCV 05/24/2024 06:43:00 97.7 81.5-97.5 (fL) Final MCH 05/24/2024 06:43:00 30.4 27.0-34.0 (pg) Final MCHC 05/24/2024 06:43:00 31.1 32.0-36.0 (g/dL) Final RDW 05/24/2024 06:43:00 15.9 11.5-15.5 (%) Final Platelets 05/24/2024 06:43:00 242 140-400 (K/uL) Final MPV 05/24/2024 06:43:00 9.9 6.6-11.1 (fL) Final Nucleated erythrocytes/100 leukocytes [Ratio] in Blood by Automated count 05/24/2024 06:43:00 0 <=0 (/100 WBCs) Final Performing Location LABORATORY [facility] [place] - [address] [place] [address]
--- OUTSIDE RECORDS SUMMARY | 2024-06-21 19:59 | External Medical Summary ---
Author Name Unknown Address Unknown Organization [id number]:[facility]ORY [facility] [place] [address] [place] [address] Laboratory Report Ordering Provider Test Date Status SEBASTIAN DENNY 05/19/2024 06:33:00 Final Observation Date Value Abnormality Reference (Units ) Status BUN 05/19/2024 06:33:00 10 6-20 (mg/dL) Final Creatinine 05/19/2024 06:33:00 0.5 0.5-1.0 (mg/dL) Final Glomerular filtration rate/1.73 sq M.predicted [Volume Rate/Area] in Serum, Plasma or Blood by Creatinine-based formula (CKD-EPI) 05/19/2024 06:33:00 >90 >=60 (mL/min) Final eGFR is calculated based on the CKD-EPI 2020 equation. Sodium 05/19/2024 06:33:00 136 135-146 (m mol/L) Final Potassium 05/19/2024 06:33:00 4.1 3.5-5.1 (m mol/L) Final Cl 05/19/2024 06:33:00 100 98-107 (mm ol/L) Final CO2 05/19/2024 06:33:00 25 22-32 (mmo l/L) Final Anion gap 05/19/2024 06:33:00 11 7-15 (mmol /L) Final Glucose 05/19/2024 06:33:00 106 70-120 (mg /dL) Final Calcium 05/19/2024 06:33:00 9.5 8.4-10.2 ( mg/dL) Final Performing Location [facility] [place] [address] [place] [address]
--- OUTSIDE RECORDS SUMMARY | 2024-06-21 19:59 | External Medical Summary ---
Author Name Unknown Address Unknown Organization K01:LABORATORY [facility] [place] [address] [place] [address] Ave[address] [facility] [address] Laboratory Report Ordering Provider Test Date Status SEBASTIAN DENNY 05/05/2024 09:35:00 Final Observation Date Value Abnormality Reference (Units ) Status WBC, Total 05/05/2024 09:35:00 8.31 4.00-10.80 (K/uL) Final RBC 05/05/2024 09:35:00 3.17 3.85-5.15 (M/uL) Final Hemoglobin 05/05/2024 09:35:00 9.5 Below low normal 12.0-15.3 (g/dL) Final HCT 05/05/2024 09:35:00 30.7 Below low normal 36.0-45.2 (%) Final MCV 05/05/2024 09:35:00 96.8 81.5-97.5 (fL) Final MCH 05/05/2024 09:35:00 30.0 27.0-34.0 (pg) Final MCHC 05/05/2024 09:35:00 30.9 32.0-36.0 (g/dL) Final RDW 05/05/2024 09:35:00 16.0 11.5-15.5 (%) Final Platelets 05/05/2024 09:35:00 482 Above high normal 140-400 (K/uL) Final MPV 05/05/2024 09:35:00 10.7 6.6-11.1 (fL) Final Nucleated erythrocytes/100 leukocytes [Ratio] in Blood by Automated count 05/05/2024 09:35:00 0 <=0 (/100 WBCs) Final Performing Location LABORATORY [facility] [place] - [address] [place] [address]
--- OUTSIDE RECORDS SUMMARY | 2024-06-21 19:59 | External Medical Summary ---
Author Name Unknown Address Unknown Organization K01:LAB[facility]ATORY [facility] [place] - [address] [facility] [place] [address] Laboratory Report Ordering Provider Test Date Status BESSIEFELICITASSEBASTIAN 05/03/2024 20:16:00 Final Observation Date Value Abnormality Reference (Units ) Status Lactic Acid 05/03/2024 20:16:00 1.1 0.4-2.0 (mmol/L) Final Performing Location LAB[facility]ATORY [facility] [place] - [address] [place] [address]
--- OUTSIDE RECORDS SUMMARY | 2024-06-21 19:59 | External Medical Summary ---
Author Name Unknown Address Unknown Organization K01:LABORATORY [facility] [place] - [address] [facility] [place] [address] Laboratory Report Ordering Provider Test Date Status SEBASTIAN DNENY 05/03/2024 20:16:00 Final Observation Date Value Abnormality Reference (Units ) Status Phosphate 05/03/2024 20:16:00 3.9 2.5-4.8 (m g/dL) Final Performing Location LABORATORY [facility] - [address] [place] [address]
--- OUTSIDE RECORDS SUMMARY | 2024-06-21 19:59 | External Medical Summary ---
Author Name Unknown Address Unknown Organization K01:[facility] [place] [facility] [address] [facility] [address] [facility] [address] Laboratory Report Ordering Provider Test Date Status SEBASTIAN DENNY 05/29/2024 07:25:00 Final Observation Date Value Abnormality Reference (Units ) Status WBC, Total 05/29/2024 07:25:00 5.34 4.00-10.80 (K/uL) Final RBC 05/29/2024 07:25:00 3.54 3.85-5.15 (M/uL) Final Hemoglobin 05/29/2024 07:25:00 10.7 Below low normal 12.0-15.3 (g/dL) Final HCT 05/29/2024 07:25:00 34.3 Below low normal 36.0-45.2 (%) Final MCV 05/29/2024 07:25:00 96.9 81.5-97.5 (fL) Final MCH 05/29/2024 07:25:00 30.2 27.0-34.0 (pg) Final MCHC 05/29/2024 07:25:00 31.2 32.0-36.0 (g/dL) Final RDW 05/29/2024 07:25:00 14.9 11.5-15.5 (%) Final Platelets 05/29/2024 07:25:00 266 140-400 (K/uL) Final MPV 05/29/2024 07:25:00 9.9 6.6-11.1 (fL) Final Nucleated erythrocytes/100 leukocytes [Ratio] in Blood by Automated count 05/29/2024 07:25:00 0 <=0 (/100 WBCs) Final Performing Location [facility] [place] [address] [place] [address]
--- OUTSIDE RECORDS SUMMARY | 2024-06-21 19:59 | External Medical Summary ---
Author Name Unknown Address Unknown Organization K01:[facility] [place] [address] [place] [address] Laboratory Report Ordering Provider Test Date Status SEBASTIAN DENNY 05/10/2024 05:57:00 Final Observation Date Value Abnormality Reference (Units ) Status BUN 05/10/2024 05:57:00 13 6-20 (mg/dL) Final Creatinine 05/10/2024 05:57:00 0.5 0.5-1.0 (mg/dL) Final Glomerular filtration rate/1.73 sq M.predicted [Volume Rate/Area] in Serum, Plasma or Blood by Creatinine-based formula (CKD-EPI) 05/10/2024 05:57:00 >90 >=60 (mL/min) Final eGFR is calculated based on the CKD-EPI 2020 equation. Sodium 05/10/2024 05:57:00 138 135-146 (m mol/L) Final Potassium 05/10/2024 05:57:00 4.6 3.5-5.1 (m mol/L) Final Cl 05/10/2024 05:57:00 103 98-107 (mm ol/L) Final CO2 05/10/2024 05:57:00 26 22-32 (mmo l/L) Final Anion gap 05/10/2024 05:57:00 9 7-15 (mmol /L) Final Glucose 05/10/2024 05:57:00 101 70-120 (mg /dL) Final Calcium 05/10/2024 05:57:00 9.0 8.4-10.2 ( mg/dL) Final Performing Location [facility] [place] [address] [place] [address]
--- OUTSIDE RECORDS SUMMARY | 2024-06-21 19:59 | External Medical Summary ---
Author Name Unknown Address Unknown Organization K01:[facility] [place] [address] [place] [address] Laboratory Report Ordering Provider Test Date Status SEBASTIAN DENNY 05/17/2024 05:39:00 Final Observation Date Value Abnormality Reference (Units ) Status BUN 05/17/2024 05:39:00 12 6-20 (mg/dL) Final Creatinine 05/17/2024 05:39:00 0.5 0.5-1.0 (mg/dL) Final Glomerular filtration rate/1.73 sq M.predicted [Volume Rate/Area] in Serum, Plasma or Blood by Creatinine-based formula (CKD-EPI) 05/17/2024 05:39:00 >90 >=60 (mL/min) Final eGFR is calculated based on the CKD-EPI 2020 equation. Sodium 05/17/2024 05:39:00 139 135-146 (m mol/L) Final Potassium 05/17/2024 05:39:00 4.3 3.5-5.1 (m mol/L) Final Cl 05/17/2024 05:39:00 102 98-107 (mm ol/L) Final CO2 05/17/2024 05:39:00 26 22-32 (mmo l/L) Final Anion gap 05/17/2024 05:39:00 11 7-15 (mmol /L) Final Glucose 05/17/2024 05:39:00 99 70-120 (mg /dL) Final Calcium 05/17/2024 05:39:00 9.6 8.4-10.2 ( mg/dL) Final Performing Location [facility] [facility] [place] [address] [place] [address]
--- OUTSIDE RECORDS SUMMARY | 2024-06-21 19:59 | External Medical Summary ---
Author Name Unknown Address Unknown Organization K01[place] [place] [address] [place] [address] [address] [facility] [address] Laboratory Report Ordering Provider Test Date Status SEBASTIAN DENNY 05/12/2024 06:01:00 Final Observation Date Value Abnormality Reference (Units ) Status WBC, Total 05/12/2024 06:01:00 4.84 4.00-10.80 (K/uL) Final RBC 05/12/2024 06:01:00 3.14 3.85-5.15 (M/uL) Final Hemoglobin 05/12/2024 06:01:00 9.4 Below low normal 12.0-15.3 (g/dL) Final HCT 05/12/2024 06:01:00 30.1 Below low normal 36.0-45.2 (%) Final MCV 05/12/2024 06:01:00 95.9 81.5-97.5 (fL) Final MCH 05/12/2024 06:01:00 29.9 27.0-34.0 (pg) Final MCHC 05/12/2024 06:01:00 31.2 32.0-36.0 (g/dL) Final RDW 05/12/2024 06:01:00 15.7 11.5-15.5 (%) Final Platelets 05/12/2024 06:01:00 247 140-400 (K/uL) Final MPV 05/12/2024 06:01:00 10.1 6.6-11.1 (fL) Final Nucleated erythrocytes/100 leukocytes [Ratio] in Blood by Automated count 05/12/2024 06:01:00 0 <=0 (/100 WBCs) Final Performing Location [facility] [place] [address] [place] [address]
--- OUTSIDE RECORDS SUMMARY | 2024-06-21 19:59 | External Medical Summary ---
Author Name Unknown Address Unknown Organization K01:[facility] [place] [facility] [address] [facility] [address] [facility] [address] Laboratory Report Ordering Provider Test Date Status SEBSATIAN DENNY 05/22/2024 05:56:00 Final Observation Date Value Abnormality Reference (Units ) Status WBC, Total 05/22/2024 05:56:00 5.08 4.00-10.80 (K/uL) Final RBC 05/22/2024 05:56:00 3.37 3.85-5.15 (M/uL) Final Hemoglobin 05/22/2024 05:56:00 10.5 Below low normal 12.0-15.3 (g/dL) Final HCT 05/22/2024 05:56:00 32.7 Below low normal 36.0-45.2 (%) Final MCV 05/22/2024 05:56:00 97.0 81.5-97.5 (fL) Final MCH 05/22/2024 05:56:00 31.2 27.0-34.0 (pg) Final MCHC 05/22/2024 05:56:00 32.1 32.0-36.0 (g/dL) Final RDW 05/22/2024 05:56:00 15.9 11.5-15.5 (%) Final Platelets 05/22/2024 05:56:00 222 140-400 (K/uL) Final MPV 05/22/2024 05:56:00 10.5 6.6-11.1 (fL) Final Nucleated erythrocytes/100 leukocytes [Ratio] in Blood by Automated count 05/22/2024 05:56:00 0 <=0 (/100 WBCs) Final Performing Location [facility] [place] [address] [place] [address]
--- OUTSIDE RECORDS SUMMARY | 2024-06-21 19:59 | External Medical Summary ---
Author Name Unknown Address Unknown Organization [id number]:[facility] [place] [address] [place] [address] Laboratory Report Ordering Provider Test Date Status SEBASTIAN DNENY 05/31/2024 06:07:00 Final Observation Date Value Abnormality Reference (Units ) Status BUN 05/31/2024 06:07:00 16 6-20 (mg/dL) Final Creatinine 05/31/2024 06:07:00 0.6 0.5-1.0 (mg/dL) Final Glomerular filtration rate/1.73 sq M.predicted [Volume Rate/Area] in Serum, Plasma or Blood by Creatinine-based formula (CKD-EPI) 05/31/2024 06:07:00 >90 >=60 (mL/min) Final eGFR is calculated based on the CKD-EPI 2020 equation. Sodium 05/31/2024 06:07:00 135 135-146 (m mol/L) Final Potassium 05/31/2024 06:07:00 4.6 3.5-5.1 (m mol/L) Final Cl 05/31/2024 06:07:00 100 98-107 (mm ol/L) Final CO2 05/31/2024 06:07:00 26 22-32 (mmo l/L) Final Anion gap 05/31/2024 06:07:00 9 7-15 (mmol /L) Final Glucose 05/31/2024 06:07:00 96 70-120 (mg /dL) Final Calcium 05/31/2024 06:07:00 9.6 8.4-10.2 ( mg/dL) Final Performing Location [facility] [place] [address] [place] [address]
--- OUTSIDE RECORDS SUMMARY | 2024-06-21 19:59 | External Medical Summary ---
Author Name Unknown Address Unknown Organization [id number]:[facility] [place] [address] [place] [address] Laboratory Report Ordering Provider Test Date Status SEBASTIAN DENNY 05/26/2024 07:09:00 Final Observation Date Value Abnormality Reference (Units ) Status BUN 05/26/2024 07:09:00 14 6-20 (mg/dL) Final Creatinine 05/26/2024 07:09:00 0.6 0.5-1.0 (mg/dL) Final Glomerular filtration rate/1.73 sq M.predicted [Volume Rate/Area] in Serum, Plasma or Blood by Creatinine-based formula (CKD-EPI) 05/26/2024 07:09:00 >90 >=60 (mL/min) Final eGFR is calculated based on the CKD-EPI 2020 equation. Sodium 05/26/2024 07:09:00 137 135-146 (m mol/L) Final Potassium 05/26/2024 07:09:00 4.3 3.5-5.1 (m mol/L) Final Cl 05/26/2024 07:09:00 100 98-107 (mm ol/L) Final CO2 05/26/2024 07:09:00 26 22-32 (mmo l/L) Final Anion gap 05/26/2024 07:09:00 11 7-15 (mmol /L) Final Glucose 05/26/2024 07:09:00 97 70-120 (mg /dL) Final Calcium 05/26/2024 07:09:00 9.6 8.4-10.2 ( mg/dL) Final Performing Location [facility] [place] [address] [place] [address]
--- OUTSIDE RECORDS SUMMARY | 2024-06-21 19:59 | External Medical Summary | Summary of Care ---
Author Name Unknown Organization [facility] Address [address] [place] [address] Phone [phone] Care Team Providers Care Acid Washer Operator Name Role Phone Unavailable Primary Care Provider Unavailabl e Reason for Referral * Evaluate & Treat - Unlimited Visits (Within 10 days (routine)) - Pending Review Specialty Diagnoses / Procedures Referred By Contac t Referred To Contact Psychiatry Diagnoses Adjustment disorder, unspecified type Miguelina Cain MD [address] [facility] [place] [address] Referral ID Status Reason Start Date Expiration Date Visits Requested Visits Authorized [id number] Pending Review Specialty Services Required 05/10/2024 999 [id number] Question Answer Referral Priority Within 10 days (routine) Where should this appointment be scheduled? [facility] Is this referral for medication management? Yes Reason for Referral Bipolar Comments Discharge Order * Precert (Within 10 days (routine)) - Pending Review Specialty Diagnoses / Procedures Referred By Contac t Referred To Contact Radiology Diagnoses Status post laminectomy Acute osteomyelitis (HCC) Epidural abscess Procedures MRI T SPINE W WO CONTRAST MRI T SPINE W WO CONTRAST Shiv Cespedes DO [address] [place] [address] Referral ID Status Reason Start Date Expiration Date V isits Requested Visits Authorized [id number] Pending Review 06/12/2024 999 999 * Precert (Within 10 days (routine)) - Pending Review Specialty Diagnoses / Procedures Referred By Contac t Referred To Contact Radiology Diagnoses Status post laminectomy Acute osteomyelitis (HCC) Epidural abscess Procedures MRI L SPINE W WO CONTRAST MRI L SPINE W WO CONTRAST Shiv Cespedes, DO [address], [place] Referral ID Status Reason Start Date Expiration Date V isits Requested Visits Authorized [id number] Pending Review 06/12/2024 999 999 * Precert (Within 10 days (routine)) - Pending Review Specialty Diagnoses / Procedures Referred By Contac t Referred To Contact Radiology Diagnoses Status post laminectomy Acute osteomyelitis (HCC) Epidural abscess Procedures MRI C SPINE W WO CONTRAST MRI C SPINE W WO CONTRAST Shiv Cespedes, DO [address], [place] Referral ID Status Reason Start Date Expiration Date V isits Requested Visits Authorized [id number] Pending Review 06/12/2024 999 999 * Evaluate & Treat - Unlimited Visits (Within 10 days (routine)) - Pending Review Specialty Diagnoses / Procedures Referred By Contac t Referred To Contact Urology Diagnoses Urinary retention Mery Kramer MD [address] [place] [address] Referral ID Status Reason Start Date Expiration Date Visits Requested Visits Authorized [id number] Pending Review Specialty Services Required 04/29/2024 999 999 Question Answer Referral Priority Within 10 days (routine) Where should this appointment be scheduled? [facility] What is the patient being referred for? Other Conditions - voiding trial Comments Discharge Order Reason for Visit * Auth/Cert Specialty Diagnoses / Procedures Referred By Contac t Referred To Contact Diagnoses discitis, osteomyelitis Abiola Mo DO [address] [place] [address] [place] [facility] [place] [address] [place] [address] Referral ID Status Reason Start Date Expiration Date Visits Re quested Visits Authorized [id number] 999 [id number] Encounter Details Date Type Department Care Team (Late st Contact Info) Description 04/20/2024 5:15 PM EDT - 06/01/2024 11:41 AM EDT Hospital Encounter [id number] F[facility] [place] [address] Abiola Mo, [facility] [place] [id number] Modesta Diaz MD [facility] [place] [address] Ne Arreaga MD [facility] [address] [place], [place] Avery Henry MD [facility] [place] [address] Alice Lagunas, [facility] [place] [address] Mery Kramer MD [facility] [place] [address] Miguelina Cain MD [facility] [place] [address] Hank Pedro [facility] [address] [place] Philip Mckeon MD [facility] [address] [place], [place] Lm Arrington MD [address] [facility] [place], [place] [id number] Goran Mix MD [address] [place] [address] Anita Garcia DO [address] [place], [place] [id number] EKG Report Discharge Disposition: SNF Allergies No known active allergiesdocumented as of this encounter (statuses as of 06/01/2024) Medications Medication Sig Dispensed Refills Start Date End Date Status Multivitamin Adult Oral Tablet Take 1 Tablet by mouth in the morning. Active ceFAZolin IV IV (AMBULATORY) Administer 2 g intravenously in the morning and 2 g at noon and 2 g before bedtime. Do all this for 17 days. 102 g 06/01/2024 4 Active Simethicone 80 MG Oral Tablet Chewable [...] 1 Tablet in the evening. 90 Tablet 05/10/2024 4 Discontinued ceFAZolin IV IV (AMBULATORY) Administer 2 g intravenously in the morning and 2 g at noon and 2 g before bedtime. 240 g 05/10/2024 4 Discontinued Simethicone 80 MG Oral Tablet Chewable (Mylicon) Take 1 Tablet by mouth every 6 hours as needed for Gas. 30 Tablet 06/01/2024 4 Discontinued ceFAZolin IV IV (AMBULATORY) Administer 2 g intravenously in the morning and 2 g at noon and 2 g before bedtime. Do all this for 17 days. 102 g 06/01/2024 4 Discontinued risperiDONE 0.5 MG Oral Tablet (RisperDAL) Take 1 Tablet by mouth in the morning and 1 Tablet at noon and 1 Tablet in the evening. 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 documented as of this encounter (statuses as of 06/01/2024) Resolved Problems Problem Noted Date Diagnosed Date Resolved Date Acute hypoxemic respiratory failure 04/22/2024 04/28/2024 Bacteremia due to Staphylococcus 04/20/2024 04/28/2024 Other constipation 04/20/2024 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 04/28/2024 Acute osteomyelitis 04/20/2024 04/28/20 24 documented as of this encounter (statuses as of 06/01/2024) Immunizations Name Administration Dates Next Due Seasonal Influenza, Trivalent, (IIV3), PF, (Fluz one) 05/10/2024 documented as of this encounter Social History Tobacco Use Types Packs/Day Years Used Date Smoking Tobacco: Never Smokeless Tobacco: Never Tobacco Cessation:Counseling Given: Not Answered Alcohol Use Standard Drinks/Week Comments Never 0 [...] on file documented as of this encounter Last Filed Vital Signs Vital Sign Reading Time Taken Comments Blood Pressure 116/78 06/01/2024 6:39 AM EDT Pulse 80 06/01/2024 6:39 AM EDT Temperature 36.8 C (98.2 F) 06/01/2024 6:39 AM ED T Respiratory Rate 18 06/01/2024 6:39 AM EDT Oxygen Saturation 100% 06/01/2024 6:39 AM EDT Inhaled Oxygen Concentration - - Weight 58.1 kg (128 lb 1.4 oz) 06/01/2024 7:29 A M EDT Height 157.5 cm (5' 2") 04/20/2024 5:21 PM EDT Body Mass Index 23.43 04/20/2024 5:21 PM EDT documented in this encounter Functional Status Functional Status Response [...] No 04/22/2024 documented as of this encounter Discharge Instructions * Discharge Instr - AVS* Avery Henry MD - 04/29/2024 9:56 AM EDT Discharge Date: 06/01/2024 Brief summary of inpatient care: Yakov Keller was admitted to [facility] on 04/20/2024 with Epidural abcess from [facility]. The primary diagnosis at discharge was Spinal Epidural Abscess, Staph Bacteremia. Yakov Keller is being discharged to [facility] . The patient was admitted after being transferred from [facility] for evaluation of possible spinal infection. She was evaluated at outside hospital and underwent sepsis workup which included a CT imaging of her head spine neck abdomen and pelvis. Imaging was remarkable for progression of a T8-T9 paravertebral phlegmon/developing abscess and T9 vertebral body osteomyelitis. Blood cultures have not been sent with paperwork however admitting staff spoke to facility and updated cultures were positive forstaph species. Here the patient underwent further imaging studies with MRI of brain C-spine L- spine and T-spine which demonstrated ventral epidural abscess extending from skull base through upper lumbar spine. Brain MRI without evidence of intracranial extension of the abscess. Diffuse T1 hypointensity in the calvarium is nonspecific and may relate to red marrow conversion was also seen on MRI Brain. Similar to prior CT, enhancing mass at T3-T4 is observed, but presumably meningioma although nonspecific. Imaging was also remarkable for severe spinal cord compression at T3-T4, moderate/severe spinal cord compression at T9-T10 and T8-T9, moderate cervical spinal canal narrowing. Partially loculated, enhancing left upper hemithorax pleural effusion, concerning for empyema and possibly direct extension of paraspinal infection. Nonspecific bone marrow enhancement at T10 vertebral body. Malignancy/metastasis not excluded. Partially calcified enhancing right adnexal mass partially visualized. Blood cultures were obtained on presentation which revealed MSSA bacteremia. Repeat blood cultures on 04/23 with no growth. She she was taken to the operating room with Neurosurgery and underwent C3 to T1 and T7-T11 laminectomies for decompression and washout of epidural abscess ( 04/22/2024). Intra op cultures 04/22 final results with no growth. no fungus, AFB on preliminary cultures. TTE 04/21 with no obvious vegetations. RJ 04/25/24: No evidence of valvular vegetations or perivalvular abscess. Infectious disease evaluated patient who recommended Cefazolin 2 grams Q8H with end date: 06/18/24. Imaging was also notable for enhancing left upper hemithorax pleural effusion, concerning for empyema and possibly direct extension of paraspinal infection noted on OSH CT. Repeat CXR here with no discernable left pleural effusion. Repeat noncontrast CT chest 04/28/24 remarkable for small to moderate left pleural effusion with loculated components noted along left major fissure and posterior right hemithorax. Thoracic surgery evaluated, no indications for drainage of small residual left pleural effusion. To follow clinically and consider repeat imaging as needed. The Hospital Medicine physician(s) at the time of discharge included: Miguelina Cain MD To reach this Provider Wednesday through Wednesday (8:00 AM to 4:30 PM) for any questions or test results: Call [phone] For after-hours concerns: Call [phone] and have your provider paged, or the provider cable installation technician for the Department of Hospital Medicine paged. Inpatient test results pending: final intra-op AFB fungal cultures 04/22/2024. Operations & Procedures: Procedure performed: Stage I: 1) hemilaminectomies, right cervical 3, left cervical 4, right cervical 5, left cervical 6, right cervical 7, left thoracic 1 2) facetectomy, left cervical 7 thoracic 1 3) evacuation of spinal epidural mass (epidural hematoma) 4) use of intraoperative ultrasonography 5) Use of fluoroscopy Stage II: 1) laminectomy thoracic 8, thoracic 9, thoracic 10 2) Partial laminectomy, inferior thoracic 7, superior thoracic 11 3) medial facetectomies, bilaterally: Thoracic 7-8, thoracic 8-9, thoracic 9-10, thoracic 10-11 4) resection of intraspinal extradural mass at T10 (epidural abscess) 5) use of intraoperative ultrasonography 6) Use of fluoroscopy Code Status: No Code Advance Directive Documentation: Advance Directive Does the Patient have an Advance Directive? No Diet: Normal diet Activity: per PT/OT Eleanora should continue the following therapies: Physical Therapy and Occupational Therapy PICC (Peripherally Inserted Catheter) Care: Prevent Infection. Use good hand hygiene by following the guidelines on this sheet. Don't touch thecatheter or dressing unless you need to. Always clean your hands before and after you come in contact with any part of the PICC. To wash your hands with soap and water: Wet your hands with warm water. (Avoid hot water, which can cause skin irritation when you wash your hands often) Apply enough soap to cover the entire surface of your hands, including your fingers. Rub your hands together briskly for at least 15 seconds. Make sure to rub the front and back of each hand up to the wrist, your fingers and fingernails, between the fingers, and each thumb. Rinse your hands with warm water. Dry your hands completely with a new, unused paper towel. Don't use a cloth towel or other reusabletowel. These can harbor germs. Use the paper towel to turn off the faucet, then throw it away. If you're in a bathroom, also use apaper towel to open the door instead of touching the handle. Keep the PICC dry. The catheter and dressing must stay dry. Don't go swimming, use a tub, or do other things that could get the PICC wet. When it comes to bathing, also avoid getting the catheter wet. You may use plastic wrap and tape to keep the catheter and dressing dry. You may also ask the homehealth nurse what products they may have to keep things dry. If the dressing does get wet, call [facility] right away for help. Avoid activities or exercises that require major use of the arm. Additional Precautions: none Isolation Status: None Mentation at Discharge: normal Future Studies Required: CBC with diff, CMP, CRP weekly while on IV antibiotics Respiratory Support at Discharge: none PRIMARY CARE PROVIDER: PCP: No primary care provider on file. No primary physician on file. None (office) None (fax) Special Instructions: Ensure patient completes Cefazolin 2 grams Q8H with end date: 06/18/24. Will require CBC with diff, CMP, CRP weekly while on IV antibiotics. ID follow up within [address] Cespedes, scheduled for 06/02/2024. Ensure patient obtains repeat MRI spine with IV contrast after completion of antibiotics as recommended by Infectious disease. Do not remove PICC line until Infectious Disease specialist approves Outpatient follow-up with Neurosurgery in 2 weeks for wound check, scheduled for 05/16/2024. Clinical follow up with as needed imaging for small left loculated pleural effusion. Patient is discharged with indwelling Peralta catheter for urinary retention, will require outpatientfollow-up with Urology for voiding trial. Incidental finding the need outpatient follow-up include: MRI spine showed enhancing mass at T3-T4 is observed, but presumably meningioma although nonspecific. Nonspecific bone marrow enhancement at T10 vertebral body. Partially calcified enhancing right adnexal mass partially visualized. Ensure follow up with outpatient psychiatrist Please START taking the following medications -Cefazolin 2 g IV Q8H until 06/18/2024. Please continue taking all other medications as previously prescribed. Please have the patient return to the Emergency Department for any of the following: chest pain, chest pressure, chest tightness, difficulty breathing, or fevers/chills The patient should not smoke or use tobacco products in any way! INTERVENTIONAL RADIOLOGY DISCHARGE INSTRUCTIONS Provider: Dr. Mike Osorio If you are experiencing any problems related to your procedure, please contact Interventional Radiology at [phone] during normal business hours: Wednesday - Wednesday, 8:00 am - 4:00 pm. If a problem occurs outside of normal business hours, please call the hospital oil derrick operator at [phone] and ask for the Interventional Radiologist cable installation technician. Contact scheduling for Interventional Radiology at [phone] during normal business hours: Wednesday - Wednesday, 8:00 am - 4:00 pm. The information below provides you with the instructions and the list of medications you need to betaking following discharge from the hospital. If you have any questions, please ask before leaving.Please carry this letter with you when you see your doctor in the clinic. If you have questions, you can reach us at the numbers above. SPECIAL INSTRUCTIONS Central Venous Catheter You have had a central venous catheter placed - a small, soft tube that is placed in a vein in yourneck or chest. It is often used when medications or nutrition need to be given over a period of weeks or even months. Having a central venous catheter means you will not need to use an IV and have itreplaced every few days. A nurse or other healthcare provider will work with you and your family to teach you what you need to do. These instructions will help you remember what to do when you are at home. If your skin turns black around the exit site of your body, this is normal for antibiotic coated catheters. Some of the excessive or extra coating on them will rub off onto the skin. This substance will cause no harm and is expected. Home Care Dressing changes are managed by visiting nurse service/infusion center department. If you experience pain or discomfort at the incision sites, you may apply a cold pack to the site, or take Tylenol or your usual pain medication. If the discomfort does not get better or there is redness or drainage from the site, notify your physician. When showering, please cover your incisions and/or exit site of catheter from skin with plastic wrap to avoid getting them wet. Do not soak in the bathtub. When to Call Interventional Radiology Call Interventional Radiology right away if you have any of the following: Fever above 100 degrees Fahrenheit Increased bleeding, redness, swelling, warmth, or discharge at the incision site. Constant or increasing pain, numbness, coldness, or tingling around the incision area. If at any time you experience any of the following or feel you are having a medical emergency, [id number] for emergency assistance. Chest Pain Sudden, severe shortness of breath Rapid heart rate Sudden onset of weakness Coughing up blood Do not smoke or use tobacco products in any way! If you feel suicidal or homicidal, please call the crisis hotline at 6-534-986-MVZV (1950). Driving: N/A. Diet: You may resume your current diet as tolerated. Return to work or school: N/A * Care Mgmt Instr - AVS* Seema Gregory OSA - 05/16/2024 5:08 PM EDT No care steam table attendant to display If you have Home Care Services, you should have a visit within 48 hours. documented in this encounter Progress Notes * Avery Henry MD - 05/31/2024 8:13 AM EDT Images from the original note were not included. [facility] A473/B INTERVAL HISTORY: -NAEON -no new complaints -still waiting on auth per my dx w CM Objective Physical Exam Most Recent Vital Signs: BP: 101 mmHg/68 mmHg (05/31/24604) Pulse: 66 (05/31/[address]604) Resp: 18 (05/31/[address]604) Temp: 36.5 C (05/31/[address]) Temp Summary: Temp Min: 36.4 C (97.5 F) Max: 36.9 C (98.4 F) SpO2: 99 % (05/31/24 0605) O2 flow rate: 0 L/MIN (05/29/24 2302) Supplemental O2 Delivery: Room Air, None (05/31/24 0807) Constitutional: NAD,well built HEENT: NC/AT, no masses / Sclera clear and EOMI, no nystagmus / No lip/oral lesions / supple, trachea midline CV: Regular rhythm and rate, no murmur, gallops or rubs, R chest CVC Respiratory: Normal resp effort on room air, no accessory muscle use, no crackles, wheezing, rhonchi Abdomen: Soft, nontender, nondistended, normoactive bowel sounds Musculoskeletal: ROM wnl Skin: Dry, warm, intact without rashes or lesions Neuro: A&Ox3, no focal neurological deficits; B/L LE and UE strength and sensations equal and intact, babinski negative Psych: Appropriate mood/affect, answers questions appropriately Tunneled Central Cath Single Lumen Right Chest (Active) Number of days: 25 STUDIES: Encounter Orders Labs and other studies reviewed in [facility] by me. Assessment and Plan IMPRESSION : Principal Problem (Resolved): Bacteremia due to Staphylococcus Active Problems: Status post laminectomy Urinary retention Adjustment disorder Pleural effusion on left Altered mental status Resolved Problems: Other constipation Epidural abscess Acute osteomyelitis (HCC) Acute hypoxemic respiratory failure (HCC) DIFFERENTIAL AND PLAN: 53 y/o F no sig PMH presented to OSH surgical clinic with difficulty ambulating, transferred for possible spinal infection, found to have cervical and thoracic epidural spinal abscesses and MSSA bacteremia, s/p cervical and thoracic laminectomies, decompression and washout of abscess. Currently maintained on IV cefazolin until 06/18 and doing well. Planned for rehab placement. Neurosurgery to follow as OP. #MSSA bacteremia #Cervical and thoracic SEA s/p laminectomy, washout, drain (removed) #Urinary retention s/p IUBC -cont IV cefazolin until 06/18 via R chest tunneled CVC -repeat MRI axial spine prior to completion of abx #Urinary retention resolved -Catheter removed -Voiding spontaneously #Loculated left pleural effusion -s/p Thoracic surgery eval- Recommended no indication for drainage of small left effusion, follow clinically, imaging prn #Mucocele, appendix outpatient general surgery follow up #R/o Bipolar disorder with augustine -continue risperdal TID per psychiatry -o/p psychiatry follow up Patient is awaiting placement pending insurance authorization PHARMACOLOGIC VTE PROPHYLAXIS: hEParin CODE STATUS: No Code EXPECTED DISCHARGE DATE: 06/02/2024 I spent a total of 50 minutes coordinating, documenting, and providing care for this patient excluding time spent in the performance of separately billed services or time spent by another provider/QHP. * Goran Mix MD - 05/30/2024 2:01 PM EDT Images from the original note were not included. [facility] A473/B INTERVAL HISTORY: No complaints No overnight events Objective Physical Exam Most Recent Vital Signs: BP: 128 mmHg/67 mmHg (05/30/24703) Pulse: 65 (05/30/24703) Resp: 16 (05/30/24703) Temp: 36.72 C (05/30/24703) Temp Summary: Temp Min: 36.6 C (97.9 F) Max: 37.1 C (98.8 F) SpO2: 100 % (05/30/24703) O2 flow rate: 0 L/MIN (05/29/242301) Supplemental O2 Delivery: Room Air, None (05/30/24799) Constitutional: NAD, AAO x 3 Neck: Supple, Normal ROM Eyes: Sclera normal, PERRLA Cardiovascular: RRR, no murmurs/rubs/gallops appreciated Pulmonary: Lungs clear to auscultation bilaterally, No rales/rhonchi/wheezes appreciated GI: Nontender to palpation, normal bowel sounds, soft Extremities: No lower extremity edema, no clubbing Skin: Appears warm and dry Neurological: AAO x 3, B/L upper and lower extremity strength 5/5, Tunneled Central Cath Single Lumen Right Chest (Active) Number of days: 24 STUDIES: Encounter Orders Labs and other studies reviewed with pertinent findings noted below: Chemistry on May 29 unremarkable CBC at baseline, hemoglobin 10.7 otherwise unremarkable Assessment and Plan IMPRESSION : Principal Problem (Resolved): Bacteremia due to Staphylococcus Active Problems: Status post laminectomy Urinary retention Adjustment disorder Pleural effusion on left Altered mental status Resolved Problems: Other constipation Epidural abscess Acute osteomyelitis (HCC) Acute hypoxemic respiratory failure (HCC) DIFFERENTIAL AND PLAN: 53 y/o F no sig PMH presented to OSH surgical clinic with difficulty ambulating, transferred for possible spinal infection, found to have cervical and thoracic epidural spinal abscesses and MSSA bacteremia, s/p cervical and thoracic laminectomies, decompression and washout of abscess. Currently maintained on IV cefazolin until 06/18 and doing well. Planned for rehab placement. Neurosurgery to follow as OP. MSSA bacteremia Cervical and thoracic SEA s/p laminectomy, washout, drain (removed) Urinary retention s/p IUBC cont IV cefazolin until 06/18 via R chest tunneled CVC repeat MRI axial spine prior to completion of abx Urinary retention resolved Catheter removed Voiding without issues Loculated left pleural effusion Thoracic surgery evaluated earlier in admission Recommended no indication for drainage of small left effusion, follow clinically, imaging only as needed Mucocele, appendix outpatient general surgery follow up R/o Bipolar disorder with augustine continue risperdal TID per psychiatry o/p psychiatry follow up Patient is awaiting placement pending insurance authorization PHARMACOLOGIC VTE PROPHYLAXIS: hEParin CODE STATUS: No Code EXPECTED DISCHARGE DATE: 06/02/2024 I spent a total of 26 minutes coordinating, documenting, and providing care for this patient excluding time spent in the performance of separately billed services or time spent by another provider/QHP. * Goran Mix MD - 05/29/2024 12:20 PM EDT Images from the original note were not included. [facility] A473/B INTERVAL HISTORY: No complaints No overnight events Objective Physical Exam Most Recent Vital Signs: BP: 110 mmHg/65 mmHg (05/29/24599) Pulse: 82 (05/29/24599) Resp: 16 (05/29/24599) Temp: 36.61 C (05/29/24599) Temp Summary: Temp Min: 36.6 C (97.9 F) Max: 37.1 C (98.8 F) SpO2: 96 % (10/07/24 0600) O2 flow rate: 0 L/MIN (05/26/24 1432) Supplemental O2 Delivery: Room Air, None (05/29/24 0800) Constitutional: NAD, AAO x 3 Neck: Supple, Normal ROM Eyes: Sclera normal, PERRLA Cardiovascular: RRR, no murmurs/rubs/gallops appreciated Pulmonary: Lungs clear to auscultation bilaterally, No rales/rhonchi/wheezes appreciated GI: Nontender to palpation, normal bowel sounds, soft Extremities: No lower extremity edema, no clubbing Skin: Appears warm and dry Neurological: AAO x 3, B/L upper and lower extremity strength 5/5, Tunneled Central Cath Single Lumen Right Chest (Active) Number of days: 23 STUDIES: Encounter Orders Labs and other studies reviewed with pertinent findings noted below: Laboratory reviewed on May 26 chemistry unremarkable, CBC normocytic anemia otherwise unremarkable Assessment and Plan IMPRESSION : Principal Problem (Resolved): Bacteremia due to Staphylococcus Active Problems: Status post laminectomy Urinary retention Adjustment disorder Pleural effusion on left Altered mental status Resolved Problems: Other constipation Epidural abscess Acute osteomyelitis (HCC) Acute hypoxemic respiratory failure (HCC) DIFFERENTIAL AND PLAN: 53 y/o F no sig PMH presented to OSH surgical clinic with difficulty ambulating, transferred for possible spinal infection, found to have cervical and thoracic epidural spinal abscesses and MSSA bacteremia, s/p cervical and thoracic laminectomies, decompression and washout of abscess. Currently maintained on IV cefazolin until 06/18 and doing well. Planned for rehab placement. Neurosurgery to follow as OP. MSSA bacteremia Cervical and thoracic SEA s/p laminectomy, washout, drain (removed) Urinary retention s/p IUBC cont IV cefazolin until 06/18 via R chest tunneled CVC repeat MRI axial spine prior to completion of abx Urinary retention resolved Catheter removed Voiding without issues Loculated left pleural effusion Thoracic surgery evaluated earlier in admission Recommended no indication for drainage of small left effusion, follow clinically, imaging only as needed Mucocele, appendix outpatient general surgery follow up R/o Bipolar disorder with augustine continue risperdal TID per psychiatry o/p psychiatry follow up Patient is awaiting placement pending insurance authorization PHARMACOLOGIC VTE PROPHYLAXIS: hEParin CODE STATUS: No Code EXPECTED DISCHARGE DATE: 05/31/2024 I spent a total of 26 minutes coordinating, documenting, and providing care for this patient excluding time spent in the performance of separately billed services or time spent by another provider/QHP. * Goran Mix MD - 05/28/2024 11:32 AM EDT Images from the original note were not included. [facility] A473/B INTERVAL HISTORY: No complaints No overnight events Objective Physical Exam Most Recent Vital Signs: BP: 125 mmHg/80 mmHg (05/28/24609) Pulse: 81 (05/28/24609) Resp: 18 (05/28/24609) Temp: 36.11 C (05/28/24609) Temp Summary: Temp Min: 36.1 C (97 F) Max: 36.7 C (98.1 F) SpO2: 98 % (05/28/24609) O2 flow rate: 0 L/MIN (05/26/24 1432) Supplemental O2 Delivery: Room Air, None (05/28/24 0700) Constitutional: NAD, AAO x 3 Neck: Supple, Normal ROM Eyes: Sclera normal, PERRLA Cardiovascular: RRR, no murmurs/rubs/gallops appreciated Pulmonary: Lungs clear to auscultation bilaterally, No rales/rhonchi/wheezes appreciated GI: Nontender to palpation, normal bowel sounds, soft Extremities: No lower extremity edema, no clubbing Skin: Appears warm and dry Neurological: AAO x 3, B/L upper and lower extremity strength 5/5, Tunneled Central Cath Single Lumen Right Chest (Active) Number of days: 22 STUDIES: Encounter Orders Labs and other studies reviewed with pertinent findings noted below: Laboratory reviewed on May 26 chemistry unremarkable, CBC normocytic anemia otherwise unremarkable Assessment and Plan IMPRESSION : Principal Problem (Resolved): Bacteremia due to Staphylococcus Active Problems: Status post laminectomy Urinary retention Adjustment disorder Pleural effusion on left Altered mental status Resolved Problems: Other constipation Epidural abscess Acute osteomyelitis (HCC) Acute hypoxemic respiratory failure (HCC) DIFFERENTIAL AND PLAN: 53 y/o F no sig PMH presented to [facility] surgical clinic with difficulty ambulating, transferred for possible spinal infection, found to have cervical and thoracic epidural spinal abscesses and MSSA bacteremia, s/p cervical and thoracic laminectomies, decompression and washout of abscess. Currently maintained on IV cefazolin until 06/18 and doing well. Planned for rehab placement. Neurosurgery to follow as OP. MSSA bacteremia Cervical and thoracic SEA s/p laminectomy, washout, drain (removed) Urinary retention s/p IUBC cont IV cefazolin until 06/18 via R chest tunneled CVC repeat MRI axial spine prior to completion of abx Anemia. Suspect post surgical, stable Urinary retention Catheter removed Voiding without issues Loculated left pleural effusion Thoracic surgery evaluated earlier in admission Recommended no indication for drainage of small left effusion, follow clinically, imaging only as needed Mucocele, appendix outpatient general surgery follow up R/o Bipolar disorder with augustine continue risperdal TID per psychiatry o/p psychiatry follow up PHARMACOLOGIC VTE PROPHYLAXIS: hEParin CODE STATUS: No Code EXPECTED DISCHARGE DATE: 05/29/2024 I spent a total of 28 minutes coordinating, documenting, and providing care for this patient excluding time spent in the performance of separately billed services or time spent by another provider/QHP. * Goran Mix MD - 05/27/2024 12:53 PM EDT Images from the original note were not included. [facility] A473/B INTERVAL HISTORY: No complaints No overnight events Objective Physical Exam Most Recent Vital Signs: BP: 117 mmHg/63 mmHg (05/27/24634) Pulse: 71 (05/27/24634) Resp: 16 (05/27/24634) Temp: 36.72 C (05/27/24634) Temp Summary: Temp Min: 36.4 C (97.5 F) Max: 36.7 C (98.1 F) SpO2: 99 % (05/27/24634) O2 flow rate: 0 L/MIN (05/26/24 1432) Supplemental O2 Delivery: Room Air, None (05/27/24 0800) Constitutional: NAD, AAO x 3 Neck: Supple, Normal ROM Eyes: Sclera normal, PERRLA Cardiovascular: RRR, no murmurs/rubs/gallops appreciated Pulmonary: Lungs clear to auscultation bilaterally, No rales/rhonchi/wheezes appreciated GI: Nontender to palpation, normal bowel sounds, soft Extremities: No lower extremity edema, no clubbing Skin: Appears warm and dry Neurological: AAO x 3, B/L upper and lower extremity strength 5/5, Tunneled Central Cath Single Lumen Right Chest (Active) Number of days: 21 STUDIES: Encounter Orders Labs and other studies reviewed with pertinent findings noted below: Laboratory reviewed on May 26 chemistry unremarkable, CBC normocytic anemia otherwise unremarkable Assessment and Plan IMPRESSION : Principal Problem (Resolved): Bacteremia due to Staphylococcus Active Problems: Status post laminectomy Urinary retention Adjustment disorder Pleural effusion on left Altered mental status Resolved Problems: Other constipation Epidural abscess Acute osteomyelitis (HCC) Acute hypoxemic respiratory failure (HCC) DIFFERENTIAL AND PLAN: 53 y/o F no sig PMH presented to OSH surgical clinic with difficulty ambulating, transferred for possible spinal infection, found to have cervical and thoracic epidural spinal abscesses and MSSA bacteremia, s/p cervical and thoracic laminectomies, decompression and washout of abscess. Currently maintained on IV cefazolin until 06/18 and doing well. Planned for rehab placement. Neurosurgery to follow as OP. MSSA bacteremia Cervical and thoracic SEA s/p laminectomy, washout, drain (removed) Urinary retention s/p IUBC cont IV cefazolin until 06/18 via R chest tunneled CVC repeat MRI axial spine prior to completion of abx Anemia. Suspect post surgical, stable Urinary retention Catheter removed Voiding without issues Loculated left pleural effusion Thoracic surgery evaluated earlier in admission Recommended no indication for drainage of small left effusion, follow clinically, imaging only as needed Mucocele, appendix outpatient general surgery follow up R/o Bipolar disorder with augustine continue risperdal TID per psychiatry o/p psychiatry follow up PHARMACOLOGIC VTE PROPHYLAXIS: hEParin CODE STATUS: No Code EXPECTED DISCHARGE DATE: 05/29/2024 I spent a total of 34 minutes coordinating, documenting, and providing care for this patient excluding time spent in the performance of separately billed services or time spent by another provider/QHP. * Goran Mix MD - 05/26/2024 3:09 PM EDT Images from the original note were not included. [facility] A471/A INTERVAL HISTORY: No complaints No overnight events Objective Physical Exam Most Recent Vital Signs: BP: 109 mmHg/74 mmHg (05/26/241431) Pulse: 82 (05/26/241431) Resp: 16 (05/26/241431) Temp: 36.72 C (05/26/241431) Temp Summary: Temp Min: 36.5 C (97.7 F) Max: 37.1 C (98.8 F) SpO2: 99 % (05/26/241431) O2 flow rate: 0 L/MIN (05/26/241431) Supplemental O2 Delivery: Room Air, None (05/26/241431) Constitutional: NAD, AAO x 3 Neck: Supple, Normal ROM Eyes: Sclera normal, PERRLA Cardiovascular: RRR, no murmurs/rubs/gallops appreciated Pulmonary: Lungs clear to auscultation bilaterally, No rales/rhonchi/wheezes appreciated GI: Nontender to palpation, normal bowel sounds, soft Extremities: No lower extremity edema, no clubbing Skin: Appears warm and dry Neurological: AAO x 3, B/L upper and lower extremity strength 5/5, Tunneled Central Cath Single Lumen Right Chest (Active) Number of days: 20 STUDIES: Encounter Orders Labs and other studies reviewed with pertinent findings noted below: Previous lab reviewed Assessment and Plan IMPRESSION : Principal Problem (Resolved): Bacteremia due to Staphylococcus Active Problems: Status post laminectomy Urinary retention Adjustment disorder Pleural effusion on left Altered mental status Resolved Problems: Other constipation Epidural abscess Acute osteomyelitis (HCC) Acute hypoxemic respiratory failure (HCC) DIFFERENTIAL AND PLAN: 53 y/o F no sig PMH presented to OSH surgical clinic with difficulty ambulating, transferred for possible spinal infection, found to have cervical and thoracic epidural spinal abscesses and MSSA bacteremia, s/p cervical and thoracic laminectomies, decompression and washout of abscess. Currently maintained on IV cefazolin until 06/18 and doing well. Planned for rehab placement. Neurosurgery to follow as OP. MSSA bacteremia Cervical and thoracic SEA s/p laminectomy, washout, drain (removed) Urinary retention s/p IUBC cont IV cefazolin until 06/18 via R chest tunneled CVC repeat MRI axial spine prior to completion of abx Anemia. Suspect post surgical, stable Urinary retention Catheter removed Voiding without issues Loculated left pleural effusion Thoracic surgery evaluated earlier in admission Recommended no indication for drainage of small left effusion, follow clinically, imaging only as needed Mucocele, appendix outpatient general surgery follow up R/o Bipolar disorder with augustine continue risperdal TID per psychiatry o/p psychiatry follow up PHARMACOLOGIC VTE PROPHYLAXIS: hEParin CODE STATUS: No Code EXPECTED DISCHARGE DATE: 05/29/2024 I spent a total of 32 minutes coordinating, documenting, and providing care for this patient excluding time spent in the performance of separately billed services or time spent by another provider/QHP. * Goran Mix MD - 05/25/2024 4:50 PM EDT Images from the original note were not included. [facility] A471/A INTERVAL HISTORY: No complaints No overnight events Objective Physical Exam Most Recent Vital Signs: BP: 107 mmHg/68 mmHg (05/25/24 1406) Pulse: 76 (05/25/24 1406) Resp: 16 (05/25/24 1406) Temp: 36.39 C (05/25/24 1406) Temp Summary: Temp Min: 36.3 C (97.3 F) Max: 36.6 C (97.9 F) SpO2: 99 % (05/25/24 1406) O2 flow rate: 0 L/MIN (05/21/24 1423) Supplemental O2 Delivery: Room Air, None (05/25/24 1406) Constitutional: NAD, AAO x 3 Neck: Supple, Normal ROM Eyes: Sclera normal, PERRLA Cardiovascular: RRR, no murmurs/rubs/gallops appreciated Pulmonary: Lungs clear to auscultation bilaterally, No rales/rhonchi/wheezes appreciated GI: Nontender to palpation, normal bowel sounds, soft Extremities: No lower extremity edema, no clubbing Skin: Appears warm and dry Neurological: AAO x 3, B/L upper and lower extremity strength 5/5, Tunneled Central Cath Single Lumen Right Chest (Active) Number of days: 19 STUDIES: Encounter Orders Labs and other studies reviewed with pertinent findings noted below: Previous lab reviewed Assessment and Plan IMPRESSION : Principal Problem (Resolved): Bacteremia due to Staphylococcus Active Problems: Status post laminectomy Urinary retention Adjustment disorder Pleural effusion on left Altered mental status Resolved Problems: Other constipation Epidural abscess Acute osteomyelitis (HCC) Acute hypoxemic respiratory failure (HCC) DIFFERENTIAL AND PLAN: 53 y/o F no sig PMH presented to OSH surgical clinic with difficulty ambulating, transferred for possible spinal infection, found to have cervical and thoracic epidural spinal abscesses and MSSA bacteremia, s/p cervical and thoracic laminectomies, decompression and washout of abscess. Currently maintained on IV cefazolin until 06/18 and doing well. Planned for rehab placement. Neurosurgery to follow as OP. MSSA bacteremia Cervical and thoracic SEA s/p laminectomy, washout, drain (removed) Urinary retention s/p IUBC cont IV cefazolin until 06/18 via R chest tunneled CVC repeat MRI axial spine prior to completion of abx Anemia. Suspect post surgical, stable Urinary retention Catheter removed Voiding without issues Loculated left pleural effusion Thoracic surgery evaluated earlier in admission Recommended no indication for drainage of small left effusion, follow clinically, imaging only as needed Mucocele, appendix outpatient general surgery follow up R/o Bipolar disorder with augustine continue risperdal TID per psychiatry o/p psychiatry follow up PHARMACOLOGIC VTE PROPHYLAXIS: hEParin CODE STATUS: No Code EXPECTED DISCHARGE DATE: 05/29/2024 I spent a total of 47 minutes coordinating, documenting, and providing care for this patient excluding time spent in the performance of separately billed services or time spent by another provider/QHP. * Goran Mix MD - 05/24/2024 2:22 PM EDT Images from the original note were not included. [facility] A471/A INTERVAL HISTORY: No complaints No overnight events Objective Physical Exam Most Recent Vital Signs: BP: 106 mmHg/72 mmHg (05/24/24724) Pulse: 73 (05/24/24724) Resp: 16 (05/24/24724) Temp: 36.61 C (05/24/24724) Temp Summary: Temp Min: 36.5 C (97.7 F) Max: 36.8 C (98.2 F) SpO2: 98 % (05/24/24 0725) O2 flow rate: 0 L/MIN (05/21/24 1423) Supplemental O2 Delivery: Room Air, None (05/24/24 0900) Constitutional: NAD, AAO x 3 Neck: Supple, Normal ROM Eyes: Sclera normal, PERRLA Cardiovascular: RRR, no murmurs/rubs/gallops appreciated Pulmonary: Lungs clear to auscultation bilaterally, No rales/rhonchi/wheezes appreciated GI: Nontender to palpation, normal bowel sounds, soft Extremities: No lower extremity edema, no clubbing Skin: Appears warm and dry Neurological: AAO x 3, B/L upper and lower extremity strength 5/5, Tunneled Central Cath Single Lumen Right Chest (Active) Number of days: 18 STUDIES: Encounter Orders Labs and other studies reviewed with pertinent findings noted below: Previous lab reviewed Assessment and Plan IMPRESSION : Principal Problem (Resolved): Bacteremia due to Staphylococcus Active Problems: Status post laminectomy Urinary retention Adjustment disorder Pleural effusion on left Altered mental status Resolved Problems: Other constipation Epidural abscess Acute osteomyelitis (HCC) Acute hypoxemic respiratory failure (HCC) DIFFERENTIAL AND PLAN: 53 y/o F no sig PMH presented to OSH surgical clinic with difficulty ambulating, transferred for possible spinal infection, found to have cervical and thoracic epidural spinal abscesses and MSSA bacteremia, s/p cervical and thoracic laminectomies, decompression and washout of abscess. Currently maintained on IV cefazolin until 06/18 and doing well. Planned for rehab placement. Neurosurgery to follow as OP. MSSA bacteremia Cervical and thoracic SEA s/p laminectomy, washout, drain (removed) Urinary retention s/p IUBC cont IV cefazolin until 06/18 via R chest tunneled CVC repeat MRI axial spine prior to completion of abx Anemia. Suspect post surgical, stable Urinary retention Catheter removed Voiding without issues Loculated left pleural effusion Thoracic surgery evaluated earlier in admission Recommended no indication for drainage of small left effusion, follow clinically, imaging only as needed Mucocele, appendix outpatient general surgery follow up R/o Bipolar disorder with augustine continue risperdal TID per psychiatry o/p psychiatry follow up PHARMACOLOGIC VTE PROPHYLAXIS: hEParin CODE STATUS: No Code EXPECTED DISCHARGE DATE: 05/29/2024 I spent a total of 47 minutes coordinating, documenting, and providing care for this patient excluding time spent in the performance of separately billed services or time spent by another provider/QHP. * Lm Arrington MD - 05/23/2024 3:55 PM EDT Images from the original note were not included. [facility] A471/A INTERVAL HISTORY: Patient seen and examined in the morning. Comfortably lying in the bed. Did not have any complaints. Objective Physical Exam Most Recent Vital Signs: BP: 108 mmHg/76 mmHg (05/23/241422) Pulse: 76 (05/23/241422) Resp: 18 (05/23/241422) Temp: 36.5 C (05/23/241422) Temp Summary: Temp Min: 36.1 C (97 F) Max: 36.5 C (97.7 F) SpO2: 98 % (05/23/241422) O2 flow rate: 0 L/MIN (05/21/241422) Supplemental O2 Delivery: Room Air, None (05/23/241422) Constitutional: NAD, AAO x 3 Neck: Supple, Normal ROM Eyes: Sclera normal, PERRLA Cardiovascular: RRR, no murmurs/rubs/gallops appreciated Pulmonary: Lungs clear to auscultation bilaterally, No rales/rhonchi/wheezes appreciated GI: Nontender to palpation, normal bowel sounds, soft Extremities: No lower extremity edema, no clubbing Skin: Appears warm and dry Neurological: AAO x 3, B/L upper and lower extremity strength 5/5, cranial nerves 2-12 grossly intact, no focal deficits noted Tunneled Central Cath Single Lumen Right Chest (Active) Number of days: 17 STUDIES: Encounter Orders Labs and other studies reviewed with pertinent findings noted below: Previous lab reviewed Assessment and Plan IMPRESSION : Principal Problem (Resolved): Bacteremia due to Staphylococcus Active Problems: Status post laminectomy Urinary retention Adjustment disorder Pleural effusion on left Altered mental status Resolved Problems: Other constipation Epidural abscess Acute osteomyelitis (HCC) Acute hypoxemic respiratory failure (HCC) DIFFERENTIAL AND PLAN: 53 y/o F no sig PMH presented to OSH surgical clinic with difficulty ambulating, transferred for possible spinal infection, found to have cervical and thoracic epidural spinal abscesses and MSSA bacteremia, s/p cervical and thoracic laminectomies, decompression and washout of abscess. Currently maintained on IV cefazolin until 06/18 and doing well. Planned for rehab placement. Neurosurgery to follow as OP. MSSA bacteremia Cervical and thoracic SEA s/p laminectomy, washout, drain (removed) Urinary retention s/p IUBC cont IV cefazolin until 06/18 via R chest tunneled CVC repeat MRI axial spine prior to completion of abx Anemia. Suspect post surgical, stable Urinary retention Catheter removed Voiding without issues Loculated left pleural effusion Thoracic surgery evaluated earlier in admission Recommended no indication for drainage of small left effusion, follow clinically, imaging only as needed Mucocele, appendix outpatient general surgery follow up R/o Bipolar disorder with augustine continue risperdal TID per psychiatry o/p psychiatry follow up PHARMACOLOGIC VTE PROPHYLAXIS: hEParin CODE STATUS: No Code EXPECTED DISCHARGE DATE: 05/26/2024 I spent a total of 42 minutes coordinating, documenting, and providing care for this patient excluding time spent in the performance of separately billed services or time spent by another provider/QHP. * Lm Arrington MD - 05/22/2024 9:27 AM EDT Images from the original note were not included. [facility] A471/A INTERVAL HISTORY: Patient seen and examined in the morning. Patient was working with OT. Did not have any complaints. Objective Physical Exam Most Recent Vital Signs: BP: 110 mmHg/71 mmHg (05/22/24542) Pulse: 66 (05/22/24542) Resp: 18 (05/22/24542) Temp: 36.28 C (05/22/24542) Temp Summary: Temp Min: 36.3 C (97.3 F) Max: 36.7 C (98.1 F) SpO2: 98 % (05/22/24542) O2 flow rate: 0 L/MIN (05/21/24 1423) Supplemental O2 Delivery: Room Air, None (05/22/24542) Constitutional: NAD, AAO x 3 Neck: Supple, Normal ROM Eyes: Sclera normal, PERRLA Cardiovascular: RRR, no murmurs/rubs/gallops appreciated Pulmonary: Lungs clear to auscultation bilaterally, No rales/rhonchi/wheezes appreciated GI: Nontender to palpation, normal bowel sounds, soft Extremities: No lower extremity edema, no clubbing Skin: Appears warm and dry Neurological: AAO x 3, B/L upper and lower extremity strength 5/5, cranial nerves 2-12 grossly intact, no focal deficits noted Tunneled Central Cath Single Lumen Right Chest (Active) Number of days: 16 STUDIES: Encounter Orders Labs and other studies reviewed with pertinent findings noted below: Latest Reference Range & Units 05/22/24 05:56 SODIUM 135 - 146 mmol/L 135 POTASSIUM 3.5 - 5.1 mmol/L 4.4 CHLORIDE 98 - 107 mmol/L 97 (L) CO2 22 - 32 mmol/L 28 BUN 6 - 20 mg/dL 14 CREATININE 0.5 - 1.0 mg/dL 0.5 EGFR >=60 mL/min >90 ANION GAP 7 - 15 mmol/L 10 GLUCOSE 70 - 120 mg/dL 97 CALCIUM 8.4 - 10.2 mg/dL 9.4 (L): Data is abnormally low Latest Reference Range & Units 05/22/24 05:56 WBC 4.00 - 10.80 K/uL 5.08 RBC 3.85 - 5.15 M/uL 3.37 HGB 12.0 - 15.3 g/dL 10.5 (L) HCT 36.0 - 45.2 % 32.7 (L) MCV 81.5 - 97.5 fL 97.0 MCH 27.0 - 34.0 pg 31.2 MCHC 32.0 - 36.0 g/dL 32.1 RDW 11.5 - 15.5 % 15.9 PLT 140 - 400 K/uL 222 MPV 6.6 - 11.1 fL 10.5 (L): Data is abnormally low Assessment and Plan IMPRESSION : Principal Problem (Resolved): Bacteremia due to Staphylococcus Active Problems: Status post laminectomy Urinary retention Adjustment disorder Pleural effusion on left Altered mental status Resolved Problems: Other constipation Epidural abscess Acute osteomyelitis (HCC) Acute hypoxemic respiratory failure (HCC) DIFFERENTIAL AND PLAN: 53 y/o F no sig PMH presented to [facility] surgical clinic with difficulty ambulating, transferred for possible spinal infection, found to have cervical and thoracic epidural spinal abscesses and MSSA bacteremia, s/p cervical and thoracic laminectomies, decompression and washout of abscess. Currently maintained on IV cefazolin until 06/18 and doing well. Planned for rehab placement. Neurosurgery to follow as OP. MSSA bacteremia Cervical and thoracic SEA s/p laminectomy, washout, drain (removed) Urinary retention s/p IUBC cont IV cefazolin until 06/18 via R chest tunneled CVC repeat MRI axial spine prior to completion of abx Anemia. Suspect post surgical, stable Urinary retention Catheter removed Voiding without issues Loculated left pleural effusion Thoracic surgery evaluated earlier in admission Recommended no indication for drainage of small left effusion, follow clinically, imaging only as needed Mucocele, appendix outpatient general surgery follow up R/o Bipolar disorder with augustine continue risperdal TID per psychiatry o/p psychiatry follow up PHARMACOLOGIC VTE PROPHYLAXIS: hEParin CODE STATUS: No Code EXPECTED DISCHARGE DATE: 05/26/2024 I spent a total of 40 minutes coordinating, documenting, and providing care for this patient excluding time spent in the performance of separately billed services or time spent by another provider/QHP. * Lm Arrington MD - 05/21/2024 10:30 AM EDT Images from the original note were not included. [facility] A471/A INTERVAL HISTORY: Patient seen and examined at bedside this morning. Patient was comfortably lying in the bed. Pleasant. Did not have any additional complaints. She is awaiting placement. Objective Physical Exam Most Recent Vital Signs: BP: 106 mmHg/77 mmHg (05/21/24613) Pulse: 75 (05/21/24613) Resp: 16 (05/21/24613) Temp: 36.11 C (05/21/24613) Temp Summary: Temp Min: 36.1 C (97 F) Max: 36.4 C (97.5 F) SpO2: 98 % (05/21/24613) O2 flow rate: 0 L/MIN (05/21/24613) Supplemental O2 Delivery: Room Air, None (05/21/24822) Constitutional: NAD, AAO x 3 Neck: Supple, Normal ROM Eyes: Sclera normal, PERRLA Cardiovascular: RRR, no murmurs/rubs/gallops appreciated Pulmonary: Lungs clear to auscultation bilaterally, No rales/rhonchi/wheezes appreciated GI: Nontender to palpation, normal bowel sounds, soft Extremities: No lower extremity edema, no clubbing Skin: Appears warm and dry Neurological: AAO x 3, B/L upper and lower extremity strength 5/5, cranial nerves 2-12 grossly intact, no focal deficits noted Tunneled Central Cath Single Lumen Right Chest (Active) Number of days: 15 STUDIES: Encounter Orders Labs and other studies reviewed with pertinent findings noted below: Assessment and Plan IMPRESSION : Principal Problem (Resolved): Bacteremia due to Staphylococcus Active Problems: Status post laminectomy Urinary retention Adjustment disorder Pleural effusion on left Altered mental status Resolved Problems: Other constipation Epidural abscess Acute osteomyelitis (HCC) Acute hypoxemic respiratory failure (HCC) DIFFERENTIAL AND PLAN: 53 y/o F no sig PMH presented to OSH surgical clinic with difficulty ambulating, transferred for possible spinal infection, found to have cervical and thoracic epidural spinal abscesses and MSSA bacteremia, s/p cervical and thoracic laminectomies, decompression and washout of abscess. Currently maintained on IV cefazolin until 06/18 and doing well. Planned for rehab placement. Neurosurgery to follow as OP. MSSA bacteremia Cervical and thoracic SEA s/p laminectomy, washout, drain (removed) Urinary retention s/p IUBC cont IV cefazolin until 06/18 via R chest tunneled CVC repeat MRI axial spine prior to completion of abx Anemia. Suspect post surgical, stable Urinary retention Catheter removed Voiding without issues Loculated left pleural effusion Thoracic surgery evaluated earlier in admission Recommended no indication for drainage of small left effusion, follow clinically, imaging only as needed Mucocele, appendix outpatient general surgery follow up R/o Bipolar disorder with augustine continue risperdal TID per psychiatry o/p psychiatry follow up PHARMACOLOGIC VTE PROPHYLAXIS: hEParin CODE STATUS: No Code EXPECTED DISCHARGE DATE: 05/26/2024 I spent a total of 42 minutes coordinating, documenting, and providing care for this patient excluding time spent in the performance of separately billed services or time spent by another provider/QHP. * Philip Mckeon MD - 05/20/2024 11:22 AM EDT Images from the original note were not included. [facility] A471/A INTERVAL HISTORY: Patient seen and examined at bedside this morning. Resting in bed comfortably. She reports no complaints and feels well. Denies any back pain, new motor weakness or fevers/chills. Continuing on IV Ancef until 06/18. Awaiting placement. Objective Physical Exam Most Recent Vital Signs: BP: 111 mmHg/75 mmHg (05/20/24650) Pulse: 69 (05/20/24650) Resp: 16 (05/20/24650) Temp: 36.22 C (05/20/24650) Temp Summary: Temp Min: 36.2 C (97.2 F) Max: 36.9 C (98.4 F) SpO2: 99 % (05/20/24650) O2 flow rate: 0 L/MIN (05/19/24 07) Supplemental O2 Delivery: Room Air, None (05/20/24 0800) Constitutional: NAD, AAO x 3 Neck: Supple, Normal ROM Eyes: Sclera normal, PERRLA Cardiovascular: RRR, no murmurs/rubs/gallops appreciated Pulmonary: Lungs clear to auscultation bilaterally, No rales/rhonchi/wheezes appreciated GI: Nontender to palpation, normal bowel sounds, soft Extremities: No lower extremity edema, no clubbing Skin: Appears warm and dry Neurological: AAO x 3, B/L upper and lower extremity strength 5/5, cranial nerves 2-12 grossly intact, no focal deficits noted Tunneled Central Cath Single Lumen Right Chest (Active) Number of days: 14 STUDIES: Encounter Orders Labs and other studies reviewed with pertinent findings noted below: Latest Reference Range & Units 05/19/24 06:33 SODIUM 135 - 146 mmol/L 136 POTASSIUM 3.5 - 5.1 mmol/L 4.1 CHLORIDE 98 - 107 mmol/L 100 CO2 22 - 32 mmol/L 25 BUN 6 - 20 mg/dL 10 CREATININE 0.5 - 1.0 mg/dL 0.5 EGFR >=60 mL/min >90 ANION GAP 7 - 15 mmol/L 11 GLUCOSE 70 - 120 mg/dL 106 CALCIUM 8.4 - 10.2 mg/dL 9.5 CBC Rpt ! WBC 4.00 - 10.80 K/uL 6.28 RBC 3.85 - 5.15 M/uL 3.32 HGB 12.0 - 15.3 g/dL 10.2 (L) HCT 36.0 - 45.2 % 31.9 (L) MCV 81.5 - 97.5 fL 96.1 MCH 27.0 - 34.0 pg 30.7 MCHC 32.0 - 36.0 g/dL 32.0 RDW 11.5 - 15.5 % 16.1 PLT 140 - 400 K/uL 222 MPV 6.6 - 11.1 fL 10.5 !: Data is abnormal (L): Data is abnormally low Rpt: View report in Results Review for more information Assessment and Plan IMPRESSION : Principal Problem (Resolved): Bacteremia due to Staphylococcus Active Problems: Status post laminectomy Urinary retention Adjustment disorder Pleural effusion on left Altered mental status Resolved Problems: Other constipation Epidural abscess Acute osteomyelitis (HCC) Acute hypoxemic respiratory failure (HCC) DIFFERENTIAL AND PLAN: 53 y/o F no sig PMH presented to OSH surgical clinic with difficulty ambulating, transferred for possible spinal infection, found to have cervical and thoracic epidural spinal abscesses and MSSA bacteremia, s/p cervical and thoracic laminectomies, decompression and washout of abscess. Currently maintained on IV cefazolin until 06/18 and doing well. Planned for rehab placement. Neurosurgery to follow as OP. MSSA bacteremia Cervical and thoracic SEA s/p laminectomy, washout, drain (removed) Urinary retention s/p IUBC -cont IV cefazolin until 06/18 via R chest tunneled CVC with weekly CBC/diff, CMP, CRP and 6 week ID follow up. -repeat MRI axial spine prior to completion of abx Anemia. Suspect post surgical, stable Urinary retention Catheter removed Voiding without issues Loculated left pleural effusion -Thoracic surgery evaluated earlier in admission -Recommended no indication for drainage of small left effusion, follow clinically, imaging only as needed Mucocele, appendix -outpatient general surgery follow up R/o Bipolar disorder with augustine -continue risperdal TID per psychiatry -o/p psychiatry follow up PHARMACOLOGIC VTE PROPHYLAXIS: hEParin CODE STATUS: No Code EXPECTED DISCHARGE DATE: 05/26/2024 I spent a total of 39 minutes coordinating, documenting, and providing care for this patient excluding time spent in the performance of separately billed services or time spent by another provider/QHP. * Philip Mckeon MD - 05/19/2024 4:42 PM EDT Images from the original note were not included. [facility] A471/A INTERVAL HISTORY: Patient seen examined at bedside this morning. No acute overnight events reported. She reports feeling well and offers no new complaints. She reports she would like to work with physical therapy and strengthening her lower extremities. Denies any fevers or chills. Denies any motor weakness, numbness, tingling or pain in the back. Awaiting placement for rehabilitation. Objective Physical Exam Most Recent Vital Signs: BP: 118 mmHg/77 mmHg (05/19/24 1420) Pulse: 82 (05/19/24 1420) Resp: 18 (05/19/24 1420) Temp: 36.89 C (05/19/24 1420) Temp Summary: Temp Min: 36.2 C (97.2 F) Max: 36.9 C (98.4 F) SpO2: 97 % (05/19/24 1420) O2 flow rate: 0 L/MIN (05/19/24 0700) Supplemental O2 Delivery: Room Air, None (05/19/24 1420) Constitutional: NAD, AAO x 3 Neck: Supple, Normal ROM Eyes: Sclera normal, PERRLA Cardiovascular: RRR, no murmurs/rubs/gallops appreciated Pulmonary: Lungs clear to auscultation bilaterally, No rales/rhonchi/wheezes appreciated GI: Nontender to palpation, normal bowel sounds, soft Extremities: No lower extremity edema, no clubbing Skin: Appears warm and dry Neurological: AAO x 3, B/L upper and lower extremity strength 5/5, cranial nerves 2-12 grossly intact, no focal deficits noted Tunneled Central Cath Single Lumen Right Chest (Active) Number of days: 13 STUDIES: Encounter Orders Labs and other studies reviewed with pertinent findings noted below: Latest Reference Range & Units 05/19/24 06:33 SODIUM 135 - 146 mmol/L 136 POTASSIUM 3.5 - 5.1 mmol/L 4.1 CHLORIDE 98 - 107 mmol/L 100 CO2 22 - 32 mmol/L 25 BUN 6 - 20 mg/dL 10 CREATININE 0.5 - 1.0 mg/dL 0.5 EGFR >=60 mL/min >90 ANION GAP 7 - 15 mmol/L 11 GLUCOSE 70 - 120 mg/dL 106 CALCIUM 8.4 - 10.2 mg/dL 9.5 CBC Rpt ! WBC 4.00 - 10.80 K/uL 6.28 RBC 3.85 - 5.15 M/uL 3.32 HGB 12.0 - 15.3 g/dL 10.2 (L) HCT 36.0 - 45.2 % 31.9 (L) MCV 81.5 - 97.5 fL 96.1 MCH 27.0 - 34.0 pg 30.7 MCHC 32.0 - 36.0 g/dL 32.0 RDW 11.5 - 15.5 % 16.1 PLT 140 - 400 K/uL 222 MPV 6.6 - 11.1 fL 10.5 !: Data is abnormal (L): Data is abnormally low Rpt: View report in Results Review for more information Assessment and Plan IMPRESSION : Principal Problem (Resolved): Bacteremia due to Staphylococcus Active Problems: Status post laminectomy Urinary retention Adjustment disorder Pleural effusion on left Altered mental status Resolved Problems: Other constipation Epidural abscess Acute osteomyelitis (HCC) Acute hypoxemic respiratory failure (HCC) DIFFERENTIAL AND PLAN: 53 y/o F no sig PMH presented to OSH surgical clinic with difficulty ambulating, transferred for possible spinal infection, found to have cervical and thoracic epidural spinal abscesses and MSSA bacteremia, s/p cervical and thoracic laminectomies, decompression and washout of abscess. Currently maintained on IV cefazolin until 06/18 and doing well. Planned for rehab placement. Neurosurgery to follow as OP. MSSA bacteremia Cervical and thoracic SEA s/p laminectomy, washout, drain (removed) Urinary retention s/p IUBC -cont IV cefazolin until 06/18 via R chest tunneled CVC with weekly CBC/diff, CMP, CRP and 6 week ID follow up. -repeat MRI axial spine prior to completion of abx Anemia. Suspect post surgical, stable Urinary retention Catheter removed Voiding without issues Loculated left pleural effusion -Thoracic surgery evaluated earlier in admission -Recommended no indication for drainage of small left effusion, follow clinically, imaging only as needed Mucocele, appendix -outpatient general surgery follow up R/o Bipolar disorder with augustine -continue risperdal TID per psychiatry -o/p psychiatry follow up PHARMACOLOGIC VTE PROPHYLAXIS: hEParin CODE STATUS: No Code EXPECTED DISCHARGE DATE: 05/26/2024 I spent a total of 43 minutes coordinating, documenting, and providing care for this patient excluding time spent in the performance of separately billed services or time spent by another provider/QHP. * Philip Mckeon MD - 05/18/2024 2:10 PM EDT Images from the original note were not included. [facility] A471/A INTERVAL HISTORY: Patient seen and examined at bedside this morning. Resting in bed comfortably. No new complaints. Reports that she feels well. Denies any fevers or chills. Denies any new weakness or pain. Vitals stable. Objective Physical Exam Most Recent Vital Signs: BP: 107 mmHg/68 mmHg (05/18/24 1406) Pulse: 80 (05/18/24 1406) Resp: 16 (05/18/24 1406) Temp: 36.5 C (05/18/24 1406) Temp Summary: Temp Min: 36.2 C (97.2 F) Max: 36.7 C (98.1 F) SpO2: 98 % (05/18/24 1406) O2 flow rate: 0 L/MIN (05/18/24 0630) Supplemental O2 Delivery: Room Air, None (05/18/24 1406) Constitutional: NAD, AAO x 3 Neck: Supple, Normal ROM Eyes: Sclera normal, PERRLA Cardiovascular: RRR, no murmurs/rubs/gallops appreciated Pulmonary: Lungs clear to auscultation bilaterally, No rales/rhonchi/wheezes appreciated GI: Nontender to palpation, normal bowel sounds, soft Extremities: No lower extremity edema, no clubbing Skin: Appears warm and dry Neurological: AAO x 3, B/L upper and lower extremity strength 5/5, cranial nerves 2-12 grossly intact, no focal deficits noted Tunneled Central Cath Single Lumen Right Chest (Active) Number of days: 12 STUDIES: Encounter Orders Labs and other studies reviewed with pertinent findings noted below: Latest Reference Range & Units 05/17/24 05:39 SODIUM 135 - 146 mmol/L 139 POTASSIUM 3.5 - 5.1 mmol/L 4.3 CHLORIDE 98 - 107 mmol/L 102 CO2 22 - 32 mmol/L 26 BUN 6 - 20 mg/dL 12 CREATININE 0.5 - 1.0 mg/dL 0.5 EGFR >=60 mL/min >90 ANION GAP 7 - 15 mmol/L 11 GLUCOSE 70 - 120 mg/dL 99 CALCIUM 8.4 - 10.2 mg/dL 9.6 CBC Rpt ! WBC 4.00 - 10.80 K/uL 6.62 RBC 3.85 - 5.15 M/uL 3.22 HGB 12.0 - 15.3 g/dL 9.8 (L) HCT 36.0 - 45.2 % 30.6 (L) MCV 81.5 - 97.5 fL 95.0 MCH 27.0 - 34.0 pg 30.4 MCHC 32.0 - 36.0 g/dL 32.0 RDW 11.5 - 15.5 % 16.1 PLT 140 - 400 K/uL 215 MPV 6.6 - 11.1 fL 10.5 !: Data is abnormal (L): Data is abnormally low Rpt: View report in Results Review for more information Assessment and Plan IMPRESSION : Principal Problem (Resolved): Bacteremia due to Staphylococcus Active Problems: Status post laminectomy Urinary retention Adjustment disorder Pleural effusion on left Altered mental status Resolved Problems: Other constipation Epidural abscess Acute osteomyelitis (HCC) Acute hypoxemic respiratory failure (HCC) DIFFERENTIAL AND PLAN: 53yo F no sig PMH presented to [facility] surgical clinic with difficulty ambulating, transferred for possible spinal infection, found to have cervical and thoracic epidural spinal abscesses and MSSA bacteremia, s/p cervical and thoracic laminectomies, decompression and washout of abscess. MSSA bacteremia Cervical and thoracic SEA s/p laminectomy, washout, drain (removed) Urinary retention s/p IUBC -cont IV cefazolin until 06/18 via R chest tunneled CVC with weekly CBC/diff, CMP, CRP and 6 week ID follow up. -repeat MRI axial spine prior to completion of abx Anemia. Suspect post surgical, stable Urinary retention. S/p IUBC. Remove catheter, attempt TOV Loculated left pleural effusion -Thoracic surgery evaluated earlier in admission -Recommended no indication for drainage of small left effusion, follow clinically, imaging only as needed Mucocele, appendix -outpatient general surgery follow up R/o Bipolar disorder with augustine -continue risperdal TID per psychiatry -o/p psychiatry follow up PHARMACOLOGIC VTE PROPHYLAXIS: hEParin CODE STATUS: No Code EXPECTED DISCHARGE DATE: 05/26/2024 I spent a total of 41 minutes coordinating, documenting, and providing care for this patient excluding time spent in the performance of separately billed services or time spent by another provider/QHP. * Philip Mckeon MD - 05/17/2024 12:34 PM EDT Images from the original note were not included. [facility] A471/A INTERVAL HISTORY: Patient seen and examined at bedside this morning. Resting in bed comfortably. No acute overnight events. Reports mild numbness around ulnar aspect of hand but denies any other complaints. Reports she is interested in continuing PT at rehab. Denies any fevers/chills, abdominal pain, nausea, vomiting, chest pain or shortness of breath. Objective Physical Exam Most Recent Vital Signs: BP: 112 mmHg/71 mmHg (05/17/24 1059) Pulse: 77 (05/17/24 1059) Resp: 16 (05/17/24 1059) Temp: 36.11 C (05/17/24 1059) Temp Summary: Temp Min: 36.1 C (97 F) Max: 37.1 C (98.8 F) SpO2: 99 % (05/17/24 1059) O2 flow rate: 0 L/MIN (05/16/24 1920) Supplemental O2 Delivery: Room Air, None (05/17/24 105) Constitutional: NAD, AAO x 3 Neck: Supple, Normal ROM Eyes: Sclera normal, PERRLA Cardiovascular: RRR, no murmurs/rubs/gallops appreciated Pulmonary: Lungs clear to auscultation bilaterally, No rales/rhonchi/wheezes appreciated GI: Nontender to palpation, normal bowel sounds, soft Extremities: No lower extremity edema, no clubbing Skin: Appears warm and dry Neurological: AAO x 3, B/L upper and lower extremity strength 5/5, cranial nerves 2-12 grossly intact, no focal deficits noted Tunneled Central Cath Single Lumen Right Chest (Active) Number of days: 11 STUDIES: Encounter Orders Labs and other studies reviewed with pertinent findings noted below: Latest Reference Range & Units 05/17/24 05:39 SODIUM 135 - 146 mmol/L 139 POTASSIUM 3.5 - 5.1 mmol/L 4.3 CHLORIDE 98 - 107 mmol/L 102 CO2 22 - 32 mmol/L 26 BUN 6 - 20 mg/dL 12 CREATININE 0.5 - 1.0 mg/dL 0.5 EGFR >=60 mL/min >90 ANION GAP 7 - 15 mmol/L 11 GLUCOSE 70 - 120 mg/dL 99 CALCIUM 8.4 - 10.2 mg/dL 9.6 CBC Rpt ! WBC 4.00 - 10.80 K/uL 6.62 RBC 3.85 - 5.15 M/uL 3.22 HGB 12.0 - 15.3 g/dL 9.8 (L) HCT 36.0 - 45.2 % 30.6 (L) MCV 81.5 - 97.5 fL 95.0 MCH 27.0 - 34.0 pg 30.4 MCHC 32.0 - 36.0 g/dL 32.0 RDW 11.5 - 15.5 % 16.1 PLT 140 - 400 K/uL 215 MPV 6.6 - 11.1 fL 10.5 !: Data is abnormal (L): Data is abnormally low Rpt: View report in Results Review for more information Assessment and Plan IMPRESSION : Principal Problem (Resolved): Bacteremia due to Staphylococcus Active Problems: Status post laminectomy Urinary retention Adjustment disorder Pleural effusion on left Altered mental status Resolved Problems: Other constipation Epidural abscess Acute osteomyelitis (HCC) Acute hypoxemic respiratory failure (HCC) DIFFERENTIAL AND PLAN: 53yo F no sig PMH presented to OSH surgical clinic with difficulty ambulating, transferred for possible spinal infection, found to have cervical and thoracic epidural spinal abscesses and MSSA bacteremia, s/p cervical and thoracic laminectomies, decompression and washout of abscess. MSSA bacteremia Cervical and thoracic SEA s/p laminectomy, washout, drain (removed) Urinary retention s/p IUBC -cont IV cefazolin until 06/18 via R chest tunneled CVC with weekly CBC/diff, CMP, CRP and 6 week ID follow up. -repeat MRI axial spine prior to completion of abx Anemia. Suspect post surgical, stable Urinary retention. S/p IUBC. Remove catheter, attempt TOV Loculated left pleural effusion -Thoracic surgery evaluated earlier in admission -Recommended no indication for drainage of small left effusion, follow clinically, imaging only as needed Mucocele, appendix -outpatient general surgery follow up R/o Bipolar disorder with augustine -continue risperdal TID per psychiatry -o/p psychiatry follow up PHARMACOLOGIC VTE PROPHYLAXIS: hEParin CODE STATUS: No Code EXPECTED DISCHARGE DATE: 05/19/2024 I spent a total of 46 minutes coordinating, documenting, and providing care for this patient excluding time spent in the performance of separately billed services or time spent by another provider/QHP. * Hank Pedro DO - 05/16/2024 9:51 AM EDT Images from the original note were not included. [facility] A471/A INTERVAL HISTORY: Had blood again at end of stool and feels bloated Believes it is coming from inflamed hemorrhoids She requested an enema Otherwise feels well Bladder catheter removed yesterday and has been voiding spontaneously without issue per her No addl complaints Objective Physical Exam Most Recent Vital Signs: BP: 122 mmHg/85 mmHg (05/16/24530) Pulse: 82 (05/16/24530) Resp: 16 (05/16/24530) Temp: 36.72 C (05/16/24530) Temp Summary: Temp Min: 36.7 C (98.1 F) Max: 36.9 C (98.4 F) SpO2: 99 % (05/16/24530) O2 flow rate: 0 L/MIN (05/15/241942) Supplemental O2 Delivery: Room Air, None (05/16/24738) General: well-appearing white female, NAD, AAOx3 HEENT: PERRLA, EOMI b/l, conjunctiva pink, sclera white CV: RRR no murmur, rubs; +S1/S2 Lungs: CTA bilaterally no wheezes rales or rhonchi Abdomen: soft nontender nondistended Extremities: warm, pink, no appreciable lower extremity edema, muscle strength 5/5 BUE and BLE Back: healed cervical and thoracic surgical sites, Psych: affect pleasant, speech tangential, pressured. Tunneled Central Cath Single Lumen Right Chest (Active) Number of days: 10 STUDIES: Encounter Orders Labs and other studies reviewed with pertinent findings noted below: No new labs Bcx 04/21 MSSA 2/ Bcx : Ngtd Wound Cx 04/12: ngtd RJ 04/25 The examination is adequate to evaluate the referral indication. No evidence of valvular vegetations nor perivalvular abscess. The qualitative LV ejection fraction is 55-59% (normal). The left ventricular diastolic function is mildly abnormal (grade I). Mild aortic valve stenosis is present. Assessment and Plan IMPRESSION : Principal Problem (Resolved): Bacteremia due to Staphylococcus Active Problems: Status post laminectomy Urinary retention Adjustment disorder Pleural effusion on left Altered mental status Resolved Problems: Other constipation Epidural abscess Acute osteomyelitis (HCC) Acute hypoxemic respiratory failure (HCC) DIFFERENTIAL AND PLAN: 53yo F no sig PMH presented to OSH surgical clinic with difficulty ambulating, transferred for possible spinal infection, found to have cervical and thoracic epidural spinal abscesses and MSSA bacteremia, s/p cervical and thoracic laminectomies, decompression and washout of abscess. MSSA bacteremia Cervical and thoracic SEA s/p laminectomy, washout, drain (removed) Urinary retention s/p IUBC -cont IV cefazolin until 06/18 via R chest tunneled CVC with weekly CBC/diff, CMP, CRP and 6 week ID follow up. -repeat MRI axial spine prior to completion of abx. Anemia. Suspect post surgical, stable. Urinary retention. S/p IUBC. Remove catheter, attempt TOV Loculated left pleural effusion -thoracic surgery consulted, monitor clinically, imaging prn. Mucocele, appendix -outpatient general surgery follow up. R/o Bipolar disorder with augustine -continue risperdal TID per psychiatry -o/p psychiatry follow up. PHARMACOLOGIC VTE PROPHYLAXIS: hEParin CODE STATUS: No Code EXPECTED DISCHARGE DATE: 05/19/2024 I spent a total of 55 minutes coordinating, documenting, and providing care for this patient excluding time spent in the performance of separately billed services or time spent by another provider/QHP. * Hank Pedro DO - 05/15/2024 3:53 PM EDT Images from the original note were not included. [facility] A471/A INTERVAL HISTORY: Had blood at end of stool eysterday Does believe she was straining and thinks she has hemorrhoids Has not had a colonoscopy Had some pink tinged urine in her bladder catheter Denies irritation but believes may have been tugged when she got up No addl complaints. Objective Physical Exam Most Recent Vital Signs: BP: 109 mmHg/76 mmHg (05/15/241426) Pulse: 84 (05/15/24 142) Resp: 16 (05/15/241426) Temp: 36.72 C (05/15/241426) Temp Summary: Temp Min: 36.5 C (97.7 F) Max: 36.9 C (98.4 F) SpO2: 100 % (05/15/241426) O2 flow rate: 0 L/MIN (05/14/24 180) Supplemental O2 Delivery: Room Air, None (05/15/241426) General: well-appearing white female, NAD, AAOx3 HEENT: PERRLA, EOMI b/l, conjunctiva pink, sclera white CV: RRR no murmur, rubs; +S1/S2 Lungs: CTA bilaterally no wheezes rales or rhonchi Abdomen: soft nontender nondistended Extremities: warm, pink, no appreciable lower extremity edema, muscle strength 5/5 BUE and BLE Back: healed cervical and thoracic surgical sites, : pink tinged IUBC Psych: affect pleasant, speech tangential, pressured. Urethral Catheter (Active) Number of days: 18 Tunneled Central Cath Single Lumen Right Chest (Active) Number of days: 9 STUDIES: Encounter Orders Labs and other studies reviewed with pertinent findings noted below: Hb 10.1 BMP wnl Bcx 04/21 MSSA / Bcx : Ngtd Wound Cx 04/12: ngtd RJ 04/25 The examination is adequate to evaluate the referral indication. No evidence of valvular vegetations nor perivalvular abscess. The qualitative LV ejection fraction is 55-59% (normal). The left ventricular diastolic function is mildly abnormal (grade I). Mild aortic valve stenosis is present. Assessment and Plan IMPRESSION : Principal Problem (Resolved): Bacteremia due to Staphylococcus Active Problems: Status post laminectomy Urinary retention Adjustment disorder Pleural effusion on left Altered mental status Resolved Problems: Other constipation Epidural abscess Acute osteomyelitis (HCC) Acute hypoxemic respiratory failure (HCC) DIFFERENTIAL AND PLAN: 53yo F no sig PMH presented to OSH surgical clinic with difficulty ambulating, transferred for possible spinal infection, found to have cervical and thoracic epidural spinal abscesses and MSSA bacteremia, s/p cervical and thoracic laminectomies, decompression and washout of abscess. MSSA bacteremia Cervical and thoracic SEA s/p laminectomy, washout, drain (removed) Urinary retention s/p IUBC -cont IV cefazolin until 06/18 via R chest tunneled CVC with weekly CBC/diff, CMP, CRP and 6 week ID follow up. -repeat MRI axial spine prior to completion of abx. Anemia. Suspect post surgical, stable. Urinary retention. S/p IUBC. Remove catheter, attempt TOV Loculated left pleural effusion -thoracic surgery consulted, monitor clinically, imaging prn. Mucocele, appendix -outpatient general surgery follow up. R/o Bipolar disorder with augustine -continue risperdal TID per psychiatry -o/p psychiatry follow up. PHARMACOLOGIC VTE PROPHYLAXIS: hEParin CODE STATUS: No Code EXPECTED DISCHARGE DATE: 05/19/2024 I spent a total of 55 minutes coordinating, documenting, and providing care for this patient excluding time spent in the performance of separately billed services or time spent by another provider/QHP. * Hank Pedro DO - 05/14/2024 11:30 AM EDT Images from the original note were not included. [facility] A471/A INTERVAL HISTORY: NAEON She feels well Eating breakfast Rib pain on Left has improved. Objective Physical Exam Most Recent Vital Signs: BP: 118 mmHg/80 mmHg (05/14/24 1112) Pulse: 86 (05/14/24 1112) Resp: 16 (05/14/24 1112) Temp: 37.28 C (05/14/24 1112) Temp Summary: Temp Min: 36.3 C (97.3 F) Max: 37.3 C (99.1 F) SpO2: 99 % (05/14/24 111) O2 flow rate: 0 L/MIN (05/14/24 0804) Supplemental O2 Delivery: Room Air, None (05/14/24 111) General: well-appearing white female, NAD, AAOx3 HEENT: PERRLA, EOMI b/l, conjunctiva pink, sclera white CV: RRR no murmur, rubs; +S1/S2 Lungs: CTA bilaterally no wheezes rales or rhonchi Abdomen: soft nontender nondistended Extremities: warm, pink, no appreciable lower extremity edema, muscle strength 5/5 BUE and BLE Back: healed cervical and thoracic surgical sites, Psych: affect pleasant, speech tangential, pressured. Urethral Catheter (Active) Number of days: 17 Tunneled Central Cath Single Lumen Right Chest (Active) Number of days: 8 STUDIES: Encounter Orders Labs and other studies reviewed with pertinent findings noted below: No new labs Bcx 04/21 MSSA 09/26 Bcx : Ngtd Wound Cx 04/12: ngtd RJ 04/25 The examination is adequate to evaluate the referral indication. No evidence of valvular vegetations nor perivalvular abscess. The qualitative LV ejection fraction is 55-59% (normal). The left ventricular diastolic function is mildly abnormal (grade I). Mild aortic valve stenosis is present. Assessment and Plan IMPRESSION : Principal Problem (Resolved): Bacteremia due to Staphylococcus Active Problems: Status post laminectomy Urinary retention Adjustment disorder Pleural effusion on left Altered mental status Resolved Problems: Other constipation Epidural abscess Acute osteomyelitis (HCC) Acute hypoxemic respiratory failure (HCC) DIFFERENTIAL AND PLAN: 53yo F no sig PMH presented to OSH surgical clinic with difficulty ambulating, transferred for possible spinal infection, found to have cervical and thoracic epidural spinal abscesses and MSSA bacteremia, s/p cervical and thoracic laminectomies, decompression and washout of abscess. MSSA bacteremia Cervical and thoracic SEA s/p laminectomy, washout, drain (removed) Urinary retention s/p IUBC -cont IV cefazolin until 06/18 via R chest tunneled CVC with weekly CBC/diff, CMP, CRP and 6 week ID follow up. -repeat MRI axial spine prior to completion of abx. Loculated left pleural effusion -thoracic surgery consulted, monitor clinically, imaging prn. Mucocele, appendix -outpatient general surgery follow up. R/o Bipolar disorder with augustine -continue risperdal TID per psychiatry -o/p psychiatry follow up. PHARMACOLOGIC VTE PROPHYLAXIS: hEParin CODE STATUS: No Code EXPECTED DISCHARGE DATE: 05/15/2024 I spent a total of 55 minutes coordinating, documenting, and providing care for this patient excluding time spent in the performance of separately billed services or time spent by another provider/QHP. * Hank Pedro DO - 05/13/2024 10:25 AM EDT Images from the original note were not included. [facility] A471/A INTERVAL HISTORY: Itching last night -- rec'd benedryl - denies rash or new pruritus In good spirits Moved bowels - denies diarrhea Discussed pending dispo Wednesday She believes that God has brought me and her RN and her altogether to meet today at the same time. She mentioned that she goes to [employer] in [place] to do jiu jidarionu She wants a tetanus shot prior to discharge. Objective Physical Exam Most Recent Vital Signs: BP: 115 mmHg/79 mmHg (05/13/24830) Pulse: 79 (05/13/24830) Resp: 19 (05/13/24830) Temp: 36.22 C (05/13/24830) Temp Summary: Temp Min: 36.2 C (97.2 F) Max: 36.7 C (98.1 F) SpO2: 99 % (05/13/24830) O2 flow rate: 0 L/MIN (05/13/24899) Supplemental O2 Delivery: Room Air, None (05/13/24899) General: well-appearing white female, NAD, AAOx3 HEENT: PERRLA, EOMI b/l, conjunctiva pink, sclera white CV: RRR no murmur, rubs; +S1/S2 Lungs: CTA bilaterally no wheezes rales or rhonchi Abdomen: soft nontender nondistended Extremities: warm, pink, no appreciable lower extremity edema, muscle strength 5/5 BUE and BLE Back: healed cervical and thoracic surgical sites, Psych: affect pleasant, speech tangential, pressured. Urethral Catheter (Active) Number of days: 16 Tunneled Central Cath Single Lumen Right Chest (Active) Number of days: 7 STUDIES: Encounter Orders Labs and other studies reviewed with pertinent findings noted below: No new labs Bcx 04/21 MSSA / Bcx : Ngtd Wound Cx 04/12: ngtd RJ 04/25 The examination is adequate to evaluate the referral indication. No evidence of valvular vegetations nor perivalvular abscess. The qualitative LV ejection fraction is 55-59% (normal). The left ventricular diastolic function is mildly abnormal (grade I). Mild aortic valve stenosis is present. Assessment and Plan IMPRESSION : Principal Problem (Resolved): Bacteremia due to Staphylococcus Active Problems: Status post laminectomy Urinary retention Adjustment disorder Pleural effusion on left Altered mental status Resolved Problems: Other constipation Epidural abscess Acute osteomyelitis (HCC) Acute hypoxemic respiratory failure (HCC) DIFFERENTIAL AND PLAN: 53yo F no sig PMH presented to OSH surgical clinic with difficulty ambulating, transferred for possible spinal infection, found to have cervical and thoracic epidural spinal abscesses and MSSA bacteremia, s/p cervical and thoracic laminectomies, decompression and washout of abscess. MSSA bacteremia Cervical and thoracic SEA s/p laminectomy, washout, drain (removed) Urinary retention s/p IUBC -cont IV cefazolin until 06/18 via R chest tunneled CVC with weekly CBC/diff, CMP, CRP and 6 week ID follow up. -repeat MRI axial spine prior to completion of abx. Loculated left pleural effusion -thoracic surgery consulted, monitor clinically, imaging prn. Mucocele, appendix -outpatient general surgery follow up. 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 PHARMACOLOGIC VTE PROPHYLAXIS: hEParin CODE STATUS: No Code EXPECTED DISCHARGE DATE: 05/15/2024 I spent a total of 55 minutes coordinating, documenting, and providing care for this patient excluding time spent in the performance of separately billed services or time spent by another provider/QHP. * Hank Pedro DO - 05/12/2024 12:09 PM EDT Images from the original note were not included. [facility] A471/A INTERVAL HISTORY: Moved bowels No acute complaints Discussed waiting for placement Wednesday Objective Physical Exam Most Recent Vital Signs: BP: 109 mmHg/77 mmHg (05/12/24 1140) Pulse: 93 (05/12/24 1140) Resp: 16 (05/12/24 1140) Temp: 36.22 C (05/12/24 1140) Temp Summary: Temp Min: 36.2 C (97.2 F) Max: 37.3 C (99.1 F) SpO2: 100 % (05/12/24 1140) O2 flow rate: 0 L/MIN (05/09/242231) Supplemental O2 Delivery: Room Air, None (05/12/24 1140) General: well-appearing white female, NAD, AAOx3 HEENT: PERRLA, EOMI b/l, conjunctiva pink, sclera white CV: RRR no murmur, rubs; +S1/S2 Lungs: CTA bilaterally no wheezes rales or rhonchi Abdomen: soft nontender nondistended Extremities: warm, pink, no appreciable lower extremity edema, muscle strength 5/5 BUE and BLE Back: healed cervical and thoracic surgical sites, Psych: affect pleasant, speech tangential, pressured. Urethral Catheter (Active) Number of days: 15 Tunneled Central Cath Single Lumen Right Chest (Active) Number of days: 6 STUDIES: Encounter Orders Labs and other studies reviewed with pertinent findings noted below: No new labs 04/21 Bcx MSSA 09/26 RJ 04/25 The examination is adequate to evaluate the referral indication. No evidence of valvular vegetations nor perivalvular abscess. The qualitative LV ejection fraction is 55-59% (normal). The left ventricular diastolic function is mildly abnormal (grade I). Mild aortic valve stenosis is present. Assessment and Plan IMPRESSION : Principal Problem (Resolved): Bacteremia due to Staphylococcus Active Problems: Status post laminectomy Urinary retention Adjustment disorder Pleural effusion on left Altered mental status Resolved Problems: Other constipation Epidural abscess Acute osteomyelitis (HCC) Acute hypoxemic respiratory failure (HCC) DIFFERENTIAL AND PLAN: 53yo F no sig PMH presented to OSH surgical clinic with difficulty ambulating, transferred for possible spinal infection, found to have cervical and thoracic epidural spinal abscesses and MSSA bacteremia, s/p cervical and thoracic laminectomies, decompression and washout of abscess. MSSA bacteremia Cervical and thoracic SEA s/p laminectomy, washout, drain (removed) Urinary retention s/p IUBC -cont IV cefazolin until 06/18 via R chest tunneled CVC with weekly CBC/diff, CMP, CRP and 6 week ID follow up. -repeat MRI axial spine prior to completion of abx. Loculated left pleural effusion -thoracic surgery consulted, monitor clinically, imaging prn. Mucocele, appendix -outpatient general surgery follow up. 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 PHARMACOLOGIC VTE PROPHYLAXIS: hEParin CODE STATUS: No Code EXPECTED DISCHARGE DATE: 05/12/2024 I spent a total of 55 minutes coordinating, documenting, and providing care for this patient excluding time spent in the performance of separately billed services or time spent by another provider/QHP. * Hank Pedro DO - 05/11/2024 10:51 AM EDT Images from the original note were not included. [facility] A471/A INTERVAL HISTORY: Believes her pathology is mainly on her left side Her left hearing impairment, her left knee, and her left sided appendix We did discuss imaging performed previously does seem to indicate her appendix is appropriately on the Right side She was worried when she sits that she was compressing her left sided appendix and reviewed that was likely not the case. Appendix mucocele will need follow up after completion of abx She feels a site of warmth and "jammed up" area under her left ribs We reviewed imaging - suspect rib dysfunction, constipation. We talked about the spotted lantern fly and its invasivness. 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 Objective Physical Exam Most Recent Vital Signs: BP: 121 mmHg/72 mmHg (05/11/24608) Pulse: 73 (05/11/24608) Resp: 16 (05/11/24608) Temp: 36.5 C (05/11/24608) Temp Summary: Temp Min: 36.4 C (97.5 F) Max: 37.6 C (99.7 F) SpO2: 100 % (05/11/24608) O2 flow rate: 0 L/MIN (05/09/242231) Supplemental O2 Delivery: Room Air, None (05/11/24608) General: well-appearing white female, NAD, AAOx3 HEENT: PERRLA, EOMI b/l, conjunctiva pink, sclera white CV: RRR no murmur, rubs; +S1/S2 Lungs: CTA bilaterally no wheezes rales or rhonchi Abdomen: soft nontender nondistended Extremities: warm, pink, no appreciable lower extremity edema, muscle strength 5/5 BUE and BLE Back: healed cervical and thoracic surgical sites, Psych: affect pleasant, speech tangential, pressured. Urethral Catheter (Active) Number of days: 14 Tunneled Central Cath Single Lumen Right Chest (Active) Number of days: 5 STUDIES: Encounter Orders Labs and other studies reviewed with pertinent findings noted below: No new labs 04/21 Bcx MSSA 09/26 RJ 04/25 The examination is adequate to evaluate the referral indication. No evidence of valvular vegetations nor perivalvular abscess. The qualitative LV ejection fraction is 55-59% (normal). The left ventricular diastolic function is mildly abnormal (grade I). Mild aortic valve stenosis is present. Assessment and Plan IMPRESSION : Principal Problem (Resolved): Bacteremia due to Staphylococcus Active Problems: Status post laminectomy Urinary retention Adjustment disorder Pleural effusion on left Altered mental status Resolved Problems: Other constipation Epidural abscess Acute osteomyelitis (HCC) Acute hypoxemic respiratory failure (HCC) DIFFERENTIAL AND PLAN: 53yo F no sig PMH presented to OS surgical clinic with difficulty ambulating, transferred for possible spinal infection, found to have cervical and thoracic epidural spinal abscesses and MSSA bacteremia, s/p cervical and thoracic laminectomies, decompression and washout of abscess. MSSA bacteremia Cervical and thoracic SEA s/p laminectomy, washout, drain (removed) Urinary retention s/p IUBC -cont IV cefazolin until 06/18 via R chest tunneled CVC with weekly CBC/diff, CMP, CRP and 6 week ID follow up. -repeat MRI axial spine prior to completion of abx. Loculated left pleural effusion -thoracic surgery consulted, monitor clinically, imaging prn. Mucocele, appendix -outpatient general surgery follow up. R/o Bipolar disorder with augustine -continue risperdal TID per psychiatry - discuss logorrhea, hyperverbal, tangential thought/ speech: psychiatry indicates this is likely retirement persnality versus an underlying autism -o/p psychiatry follow up. PHARMACOLOGIC VTE PROPHYLAXIS: hEParin CODE STATUS: No Code EXPECTED DISCHARGE DATE: 05/12/2024 I spent a total of 55 minutes coordinating, documenting, and providing care for this patient excluding time spent in the performance of separately billed services or time spent by another provider/QHP. * Hank Pedro DO - 05/10/2024 10:13 AM EDT Images from the original note were not included. 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 and her close contact at [facility] who manages ?ecology Also has hearing impairment Left ear so has been using her cell phone for information Speech and thought process perseverative and tangential respectively Objective Physical Exam Most Recent Vital Signs: BP: 156 mmHg/76 mmHg (05/10/24 1004) Pulse: 89 (05/10/24 1004) Resp: 16 (05/10/24 1004) Temp: 37.11 C (05/10/24 1004) Temp Summary: Temp Min: 36.4 C (97.5 F) Max: 37.1 C (98.8 F) SpO2: 97 % (05/10/24 1004) O2 flow rate: 0 L/MIN (09/17/24 2232) Supplemental O2 Delivery: Room Air, None (05/10/24 1004) General: well-appearing white female, NAD, AAOx3 HEENT: PERRLA, EOMI b/l, conjunctiva pink, sclera white CV: RRR no murmur, rubs; +S1/S2 Lungs: CTA bilaterally no wheezes rales or rhonchi Abdomen: soft nontender nondistended Extremities: warm, pink, no appreciable lower extremity edema, muscle strength 5/5 BUE and BLE Back: healed cervical and thoracic surgical sites, Psych: affect pleasant, speech tangential, pressured. Urethral Catheter (Active) Number of days: 13 Tunneled Central Cath Single Lumen Right Chest (Active) Number of days: 4 STUDIES: Encounter Orders Labs and other studies reviewed with pertinent findings noted below: Hb 9.2 BMP wnl Bcx MSSA 04/20 OSH RJ 04/25 The examination is adequate to evaluate the referral indication. No evidence of valvular vegetations nor perivalvular abscess. The qualitative LV ejection fraction is 55-59% (normal). The left ventricular diastolic function is mildly abnormal (grade I). Mild aortic valve stenosis is present. Assessment and Plan IMPRESSION : Principal Problem (Resolved): Bacteremia due to Staphylococcus Active Problems: Status post laminectomy Urinary retention Adjustment disorder Pleural effusion on left Altered mental status Resolved Problems: Other constipation Epidural abscess Acute osteomyelitis (HCC) Acute hypoxemic respiratory failure (HCC) DIFFERENTIAL AND PLAN: 53yo F no sig PMH presented to OSH surgical clinic with difficulty ambulating, transferred for possible spinal infection, found to have cervical and thoracic epidural spinal abscesses and MSSA bacteremia, s/p cervical and thoracic laminectomy for decompression and washout of abscess. MSSA bacteremia Cervical and thoracic SEA s/p laminectomy, washout, drain (removed) Urinary retention s/p IUBC -cont IV cefazolin until 06/18 via R chest tunneled CVC with weekly CBC/diff, CMP, CRP and 6 week ID follow up. -repeat MRI axial spine prior to completion of abx. Loculated left pleural effusion -thoracic surgery consulted, monitor clinically, imaging prn. Bipolar disorder with augustine -continue risperdal TID per psychiatry -o/p psychiatry follow up. PHARMACOLOGIC VTE PROPHYLAXIS: hEParin CODE STATUS: No Code EXPECTED DISCHARGE DATE: 05/10/2024 Labs as above Reviewed NSGY notes Reviewed ID notes Reviewed Psych notes. I spent a total of 55 minutes coordinating, documenting, and providing care for this patient excluding time spent in the performance of separately billed services or time spent by another provider/QHP. * Miguelina Cain MD - 05/09/2024 2:34 PM EDT Images from the original note were not included. [facility] A471/A INTERVAL HISTORY: MINESH Continues to be calm. Pending rehab placement. Medically stable Objective Physical Exam Most Recent Vital Signs: BP: 117 mmHg/59 mmHg (05/09/24 1400) Pulse: 100 (05/09/24 1400) Resp: 16 (05/09/24 1400) Temp: 36.61 C (05/09/24 1400) Temp Summary: Temp Min: 36.4 C (97.5 F) Max: 37.2 C (99 F) SpO2: 100 % (05/09/24 1400) O2 flow rate: 0 L/MIN (05/07/24 1434) Supplemental O2 Delivery: Room Air, None (05/09/24 1400) Constitutional: Lying comfortably in bed, no apparent distress Eye: anicteric sclerae, extraocular movements intact Respiratory: Diminished breath sounds bilaterally, normal work of breathing. Cardiovascular: Regular rate and rhythm. No murmurs appreciated. Abdomen: Soft, nontender, nondistended. Bowel sounds present. Extremity/skin: No edema. Neurology: Awake, alert, oriented x3. Tangential in thought process. Strength 5/5 in bilateral upper and lower extremities. Sensation grossly intact. Psychiatry: Speech with normal pitch and rate. Hyperverbal. Urethral Catheter (Active) Number of days: 12 Tunneled Central Cath Single Lumen Right Chest (Active) Number of days: 3 STUDIES: Encounter Orders Labs and other studies reviewed with pertinent findings noted below: No new labs BC 04/21: MSSA. Repeat Bcx 04/[address] Chest without contrast 04/27/2024 IMPRESSION 1. New small right pleural effusion. 2. Small to moderate left pleural effusion, increased from 04/18/2024. There are loculated components noted along the left major fissure and in the posterior right upper hemithorax towards the apex. 3. Postoperative changes from laminectomy at T8-T10. Assessment and Plan IMPRESSION : Principal Problem (Resolved): Bacteremia due to Staphylococcus Active Problems: Status post laminectomy Urinary retention Adjustment disorder Pleural effusion on left Altered mental status Resolved Problems: Other constipation Epidural abscess Acute osteomyelitis (HCC) Acute hypoxemic respiratory failure (HCC) 54 year old Ms. Ellis who no past medical history initially presented to presented to ED on 04/15for constipation and bloating where she had a CT performed which showed a partially calcified mucocele of the appendix. She then presented to [facility] on 04/18 for surgical evaluation for possible spinalinfection ratio but was noted to have difficulty ambulating, was found to be septic on admission with white cell count 27, elevated inflammatory markers. Imaging revealed left-sided pleural effusion and vertebral imaging concerning for T8-T9 osteomyelitis, diskitis, and epidural abscess. Blood culture grew MSSA bacteremia, repeat blood culture showed no growth. Neurosurgery and Orthopedic Surgerywere consulted for epidural hematoma, patient underwent MRI which showed epidural abscess extendingfrom skull base through upper lumbar spine and also in the lower spine. Also incidental extramedullary tumor of the upper thoracic spine likely meningioma. Patient did not have any neurological deficits, or signs of cord compression, no weakness or hyperreflexia, no sensory level. Findings positivefor severe neutral rigidity and back pain. Neurosurgery was consulted and emergently took the patient to the OR for a decompression, source control and laminectomy of C7-T1 and T8-T10 Postop course was not complicated, no new weakness. OR culture were followed, showed no growth. Patient had MSSA grown on blood culture from 04/21/2024, repeat blood culture on 04/23/2024 showed no growth. Rj was done showed no vegetation. Id recommended to continue cefazolin with end date 06/18/2024 and follow up with MRI spine with IV contrast. PICC was placed for the patient, but she pulled out the PICC lineand got agitated and noted acute psychosis. Pending IR guided CVC placement. MSSA bacteremia and osteomyelitis, diskitis, epidural abscess of thoracic spine - blood culture from 04/21 shows MSSA bacteremia, repeat blood culture negative - MRI spine Dorsal lower lumbar spine epidural abscess. Ventral epidural abscess extending from skull base through upper lumbar spine, S/p C3 to T1 and T7-T11 laminectomies for decompression and washout of epidural abscess ( 04/22/2024) - Intra op cultures 04/22 final results with no growth. no fungus, AFB. - TTE 04/21: no obvious vegetations, RJ 04/25/24: No evidence of valvular vegetations or perivalvularabscess - KRISTAL drains removed by neurosurgery on 04/26/24. - ID signed off. Continue with Cefazolin 2 grams Q8H. End date: 06/18/24. CVC can be removed after the completion of antibiotics and after ID follow up recommendation. -MRI spine with IV contrast will be needed for follow up prior to completion of IV antibiotics. Will order as outpatient. - patient is planned for discharge, IR placed PICC line but patient pulled out the PICC line. Now pending CVC by IR today. Acute Psychosis- Improved. - Patient more calm - No concern for infection, no metabolic etiology. - Continue Risperidone 0.5mg TID as per psych recommendation. Needs outpatient f/u - Neurosurgery re-evaluated patient, no concern for infectious etiology or neurological deficit. Nofurther imaging suggested. Transaminitis- Resolved -Abdominal US ordered given transaminitis, sludge in gallbladder. No evidence of acute cholecystitis. Transaminitis improving, suspect secondary to sepsis on admission. Left sided Loculated Pleural Effusion Enhancing left upper hemithorax pleural effusion, concerning for empyema and possibly direct extension of paraspinal infection noted on OSH CT. Repeat noncontrast CT chest 04/28/24 remarkable for small to moderate left pleural effusion with loculated components noted along left major fissure and posterior right hemithorax. Thoracic surgery evaluated, no indications for drainage of small residual left pleural effusion. Tofollow clinically and consider repeat imaging as needed. Outpatient follow up clinics/labs/studies: -MRI spine showed enhancing mass at T3-T4 is observed, but presumably meningioma although nonspecific. Nonspecific bone marrow enhancement at T10 vertebral body. Partially calcified enhancing right adnexal mass partially visualized. Need to follow up as outpatient with neurosurgery. DIFFERENTIAL AND PLAN: PHARMACOLOGIC VTE PROPHYLAXIS: hEParin CODE STATUS: No Code EXPECTED DISCHARGE DATE : to be determined I discussed with patient regarding diet, fluid intake, diagnosis, tests, medication and its side effect, medication management and discharge plan and verbalized understanding and agree with the plan. I spent a total of 36 minutes coordinating, documenting, and providing care for this patient excluding time spent in the performance of separately billed services. Please excuse any unintentional grammatical and syntactical errors as voice dictation was used to create this note. This should not deter from the intended meaning and clinical context. Please reach out should any clarification be needed. Thank you. * Miguelina Cain MD - 05/08/2024 11:33 AM EDT Images from the original note were not included. [facility] A471/A INTERVAL HISTORY: MINESH Continues to be calm. Pending rehab placement. Medically stable Objective Physical Exam Most Recent Vital Signs: BP: 125 mmHg/81 mmHg (05/08/24 1022) Pulse: 86 (05/08/24 1022) Resp: 18 (05/08/24 1022) Temp: 35.61 C (05/08/24 1022) Temp Summary: Temp Min: 35.6 C (96.1 F) Max: 37.1 C (98.8 F) SpO2: 100 % (05/08/24 1022) O2 flow rate: 0 L/MIN (05/07/24 1434) Supplemental O2 Delivery: Room Air, None (05/08/24 102) Constitutional: Lying comfortably in bed, no apparent distress Eye: anicteric sclerae, extraocular movements intact Respiratory: Diminished breath sounds bilaterally, normal work of breathing. Cardiovascular: Regular rate and rhythm. No murmurs appreciated. Abdomen: Soft, nontender, nondistended. Bowel sounds present. Extremity/skin: No edema. Neurology: Awake, alert, oriented x3. Tangential in thought process. Strength 5/5 in bilateral upper and lower extremities. Sensation grossly intact. Psychiatry: Speech with normal pitch and rate. Hyperverbal. Urethral Catheter (Active) Number of days: 11 Tunneled Central Cath Single Lumen Right Chest (Active) Number of days: 2 STUDIES: Encounter Orders Labs and other studies reviewed with pertinent findings noted below: No new labs BC 04/21: MSSA. Repeat Bcx 04/[address] Chest without contrast 04/27/2024 IMPRESSION 1. New small right pleural effusion. 2. Small to moderate left pleural effusion, increased from 04/18/2024. There are loculated components noted along the left major fissure and in the posterior right upper hemithorax towards the apex. 3. Postoperative changes from laminectomy at T8-T10. Assessment and Plan IMPRESSION : Principal Problem (Resolved): Bacteremia due to Staphylococcus Active Problems: Status post laminectomy Urinary retention Adjustment disorder Pleural effusion on left Altered mental status Resolved Problems: Other constipation Epidural abscess Acute osteomyelitis (HCC) Acute hypoxemic respiratory failure (HCC) 54 year old Ms. Ellis who no past medical history initially presented to presented to ED on 04/15for constipation and bloating where she had a CT performed which showed a partially calcified mucocele of the appendix. She then presented to [facility] on 04/18 for surgical evaluation for possible spinalinfection ratio but was noted to have difficulty ambulating, was found to be septic on admission with white cell count 27, elevated inflammatory markers. Imaging revealed left-sided pleural effusion and vertebral imaging concerning for T8-T9 osteomyelitis, diskitis, and epidural abscess. Blood culture grew MSSA bacteremia, repeat blood culture showed no growth. Neurosurgery and Orthopedic Surgerywere consulted for epidural hematoma, patient underwent MRI which showed epidural abscess extendingfrom skull base through upper lumbar spine and also in the lower spine. Also incidental extramedullary tumor of the upper thoracic spine likely meningioma. Patient did not have any neurological deficits, or signs of cord compression, no weakness or hyperreflexia, no sensory level. Findings positivefor severe neutral rigidity and back pain. Neurosurgery was consulted and emergently took the patient to the OR for a decompression, source control and laminectomy of C7-T1 and T8-T10 Postop course was not complicated, no new weakness. OR culture were followed, showed no growth. Patient had MSSA grown on blood culture from 04/21/2024, repeat blood culture on 04/23/2024 showed no growth. Rj was done showed no vegetation. Id recommended to continue cefazolin with end date 06/18/2024 and follow up with MRI spine with IV contrast. PICC was placed for the patient, but she pulled out the PICC lineand got agitated and noted acute psychosis. Pending IR guided CVC placement. MSSA bacteremia and osteomyelitis, diskitis, epidural abscess of thoracic spine - blood culture from 04/21 shows MSSA bacteremia, repeat blood culture negative - MRI spine Dorsal lower lumbar spine epidural abscess. Ventral epidural abscess extending from skull base through upper lumbar spine, S/p C3 to T1 and T7-T11 laminectomies for decompression and washout of epidural abscess ( 04/22/2024) - Intra op cultures 04/22 final results with no growth. no fungus, AFB. - TTE 04/21: no obvious vegetations, RJ 04/25/24: No evidence of valvular vegetations or perivalvularabscess - KRISTAL drains removed by neurosurgery on 04/26/24. - ID signed off. Continue with Cefazolin 2 grams Q8H. End date: 06/18/24. CVC can be removed after the completion of antibiotics and after ID follow up recommendation. -MRI spine with IV contrast will be needed for follow up prior to completion of IV antibiotics. Will order as outpatient. - patient is planned for discharge, IR placed PICC line but patient pulled out the PICC line. Now pending CVC by IR today. Acute Psychosis- Improved. - Patient more calm - No concern for infection, no metabolic etiology. - Continue Risperidone 0.5mg TID as per psych recommendation. Needs outpatient f/u - Neurosurgery re-evaluated patient, no concern for infectious etiology or neurological deficit. Nofurther imaging suggested. Transaminitis- Resolved -Abdominal US ordered given transaminitis, sludge in gallbladder. No evidence of acute cholecystitis. Transaminitis improving, suspect secondary to sepsis on admission. Left sided Loculated Pleural Effusion Enhancing left upper hemithorax pleural effusion, concerning for empyema and possibly direct extension of paraspinal infection noted on OSH CT. Repeat noncontrast CT chest 04/28/24 remarkable for small to moderate left pleural effusion with loculated components noted along left major fissure and posterior right hemithorax. Thoracic surgery evaluated, no indications for drainage of small residual left pleural effusion. Tofollow clinically and consider repeat imaging as needed. Outpatient follow up clinics/labs/studies: -MRI spine showed enhancing mass at T3-T4 is observed, but presumably meningioma although nonspecific. Nonspecific bone marrow enhancement at T10 vertebral body. Partially calcified enhancing right adnexal mass partially visualized. Need to follow up as outpatient with neurosurgery. DIFFERENTIAL AND PLAN: PHARMACOLOGIC VTE PROPHYLAXIS: hEParin CODE STATUS: No Code EXPECTED DISCHARGE DATE : to be determined I discussed with patient regarding diet, fluid intake, diagnosis, tests, medication and its side effect, medication management and discharge plan and verbalized understanding and agree with the plan. I spent a total of 36 minutes coordinating, documenting, and providing care for this patient excluding time spent in the performance of separately billed services. Please excuse any unintentional grammatical and syntactical errors as voice dictation was used to create this note. This should not deter from the intended meaning and clinical context. Please reach out should any clarification be needed. Thank you. * Miguelina Cani MD - 05/07/2024 10:28 AM EDT Images from the original note were not included. [facility] A474/A INTERVAL HISTORY: MINESH Continues to be calm. Pending rehab placement. Medically stable Objective Physical Exam Most Recent Vital Signs: BP: 122 mmHg/77 mmHg (05/07/24711) Pulse: 87 (05/07/24711) Resp: 18 (05/07/24711) Temp: 36.11 C (05/07/24711) Temp Summary: Temp Min: 36.1 C (97 F) Max: 36.8 C (98.2 F) SpO2: 100 % (05/07/24711) O2 flow rate: 0 L/MIN (05/06/24 08) Supplemental O2 Delivery: Room Air, None (05/07/24711) Constitutional: Lying comfortably in bed, no apparent distress Eye: anicteric sclerae, extraocular movements intact Respiratory: Diminished breath sounds bilaterally, normal work of breathing. Cardiovascular: Regular rate and rhythm. No murmurs appreciated. Abdomen: Soft, nontender, nondistended. Bowel sounds present. Extremity/skin: No edema. Neurology: Awake, alert, oriented x3. Tangential in thought process. Strength 5/5 in bilateral upper and lower extremities. Sensation grossly intact. Psychiatry: Speech with normal pitch and rate. Hyperverbal. Urethral Catheter (Active) Number of days: 10 Tunneled Central Cath Single Lumen Right Chest (Active) Number of days: 1 STUDIES: Encounter Orders Labs and other studies reviewed with pertinent findings noted below: No new labs BC 04/21: MSSA. Repeat Bcx 04/[address] Chest without contrast 04/27/2024 IMPRESSION 1. New small right pleural effusion. 2. Small to moderate left pleural effusion, increased from 04/18/2024. There are loculated components noted along the left major fissure and in the posterior right upper hemithorax towards the apex. 3. Postoperative changes from laminectomy at T8-T10. Assessment and Plan IMPRESSION : Principal Problem (Resolved): Bacteremia due to Staphylococcus Active Problems: Status post laminectomy Urinary retention Adjustment disorder Pleural effusion on left Altered mental status Resolved Problems: Other constipation Epidural abscess Acute osteomyelitis (HCC) Acute hypoxemic respiratory failure (HCC) 54 year old Ms. Ellis who no past medical history initially presented to presented to ED on 04/15for constipation and bloating where she had a CT performed which showed a partially calcified mucocele of the appendix. She then presented to [facility] on 04/18 for surgical evaluation for possible spinalinfection ratio but was noted to have difficulty ambulating, was found to be septic on admission with white cell count 27, elevated inflammatory markers. Imaging revealed left-sided pleural effusion and vertebral imaging concerning for T8-T9 osteomyelitis, diskitis, and epidural abscess. Blood culture grew MSSA bacteremia, repeat blood culture showed no growth. Neurosurgery and Orthopedic Surgerywere consulted for epidural hematoma, patient underwent MRI which showed epidural abscess extendingfrom skull base through upper lumbar spine and also in the lower spine. Also incidental extramedullary tumor of the upper thoracic spine likely meningioma. Patient did not have any neurological deficits, or signs of cord compression, no weakness or hyperreflexia, no sensory level. Findings positivefor severe neutral rigidity and back pain. Neurosurgery was consulted and emergently took the patient to the OR for a decompression, source control and laminectomy of C7-T1 and T8-T10 Postop course was not complicated, no new weakness. OR culture were followed, showed no growth. Patient had MSSA grown on blood culture from 04/21/2024, repeat blood culture on 04/23/2024 showed no growth. Rj was done showed no vegetation. Id recommended to continue cefazolin with end date 06/18/2024 and follow up with MRI spine with IV contrast. PICC was placed for the patient, but she pulled out the PICC lineand got agitated and noted acute psychosis. Pending IR guided CVC placement. MSSA bacteremia and osteomyelitis, diskitis, epidural abscess of thoracic spine - blood culture from 04/21 shows MSSA bacteremia, repeat blood culture negative - MRI spine Dorsal lower lumbar spine epidural abscess. Ventral epidural abscess extending from skull base through upper lumbar spine, S/p C3 to T1 and T7-T11 laminectomies for decompression and washout of epidural abscess ( 04/22/2024) - Intra op cultures 04/22 final results with no growth. no fungus, AFB. - TTE 04/21: no obvious vegetations, RJ 04/25/24: No evidence of valvular vegetations or perivalvularabscess - KRISTAL drains removed by neurosurgery on 04/26/24. - ID signed off. Continue with Cefazolin 2 grams Q8H. End date: 06/18/24. CVC can be removed after the completion of antibiotics and after ID follow up recommendation. -MRI spine with IV contrast will be needed for follow up prior to completion of IV antibiotics. Will order as outpatient. - patient is planned for discharge, IR placed PICC line but patient pulled out the PICC line. Now pending CVC by IR today. Acute Psychosis- Improved. - Patient more calm - No concern for infection, no metabolic etiology. - Continue Risperidone 0.5mg TID as per psych recommendation. Needs outpatient f/u - Neurosurgery re-evaluated patient, no concern for infectious etiology or neurological deficit. Nofurther imaging suggested. Transaminitis- Resolved -Abdominal US ordered given transaminitis, sludge in gallbladder. No evidence of acute cholecystitis. Transaminitis improving, suspect secondary to sepsis on admission. Left sided Loculated Pleural Effusion Enhancing left upper hemithorax pleural effusion, concerning for empyema and possibly direct extension of paraspinal infection noted on OSH CT. Repeat noncontrast CT chest 04/28/24 remarkable for small to moderate left pleural effusion with loculated components noted along left major fissure and posterior right hemithorax. Thoracic surgery evaluated, no indications for drainage of small residual left pleural effusion. Tofollow clinically and consider repeat imaging as needed. Outpatient follow up clinics/labs/studies: -MRI spine showed enhancing mass at T3-T4 is observed, but presumably meningioma although nonspecific. Nonspecific bone marrow enhancement at T10 vertebral body. Partially calcified enhancing right adnexal mass partially visualized. Need to follow up as outpatient with neurosurgery. DIFFERENTIAL AND PLAN: PHARMACOLOGIC VTE PROPHYLAXIS: hEParin CODE STATUS: No Code EXPECTED DISCHARGE DATE : to be determined I discussed with patient regarding diet, fluid intake, diagnosis, tests, medication and its side effect, medication management and discharge plan and verbalized understanding and agree with the plan. I spent a total of 36 minutes coordinating, documenting, and providing care for this patient excluding time spent in the performance of separately billed services. Please excuse any unintentional grammatical and syntactical errors as voice dictation was used to create this note. This should not deter from the intended meaning and clinical context. Please reach out should any clarification be needed. Thank you. * Miguelina Cain MD - 05/06/2024 11:09 AM EDT Images from the original note were not included. [facility] A474/A INTERVAL HISTORY: Patient is more calm, off restrains today. Continues to be calm. IR to place tunneled dialysis catheter today. Pending rehab placement. Medically stable Objective Physical Exam Most Recent Vital Signs: BP: 145 mmHg/87 mmHg (05/06/24 1056) Pulse: 108 (05/06/24 1056) Resp: 16 (05/06/24 1056) Temp: 36.78 C (05/06/24 1056) Temp Summary: Temp Min: 36.4 C (97.5 F) Max: 36.9 C (98.4 F) SpO2: 98 % (05/06/24 1056) O2 flow rate: 0 L/MIN (05/06/24 0800) Supplemental O2 Delivery: Room Air, None (05/06/24 105) Constitutional: Lying comfortably in bed, no apparent distress Eye: anicteric sclerae, extraocular movements intact Respiratory: Diminished breath sounds bilaterally, normal work of breathing. Cardiovascular: Regular rate and rhythm. No murmurs appreciated. Abdomen: Soft, nontender, nondistended. Bowel sounds present. Extremity/skin: No edema. Neurology: Awake, alert, oriented x3. Tangential in thought process. Strength 5/5 in bilateral upper and lower extremities. Sensation grossly intact. Psychiatry: Speech with normal pitch and rate. Hyperverbal. Urethral Catheter (Active) Number of days: 9 Peripheral Line Left 22 Gauge (Active) Number of days: 1 STUDIES: Encounter Orders Labs and other studies reviewed with pertinent findings noted below: No new labs BC 8/30: MSSA. Repeat Bcx 04/[address] Chest without contrast 04/27/2024 IMPRESSION 1. New small right pleural effusion. 2. Small to moderate left pleural effusion, increased from 04/18/2024. There are loculated components noted along the left major fissure and in the posterior right upper hemithorax towards the apex. 3. Postoperative changes from laminectomy at T8-T10. Assessment and Plan IMPRESSION : Principal Problem (Resolved): Bacteremia due to Staphylococcus Active Problems: Status post laminectomy Urinary retention Adjustment disorder Pleural effusion on left Altered mental status Resolved Problems: Other constipation Epidural abscess Acute osteomyelitis (HCC) Acute hypoxemic respiratory failure (HCC) 54 year old Ms. Ellis who no past medical history initially presented to presented to ED on 04/15for constipation and bloating where she had a CT performed which showed a partially calcified mucocele of the appendix. She then presented to [facility] on 04/18 for surgical evaluation for possible spinalinfection ratio but was noted to have difficulty ambulating, was found to be septic on admission with white cell count 27, elevated inflammatory markers. Imaging revealed left-sided pleural effusion and vertebral imaging concerning for T8-T9 osteomyelitis, diskitis, and epidural abscess. Blood culture grew MSSA bacteremia, repeat blood culture showed no growth. Neurosurgery and Orthopedic Surgerywere consulted for epidural hematoma, patient underwent MRI which showed epidural abscess extendingfrom skull base through upper lumbar spine and also in the lower spine. Also incidental extramedullary tumor of the upper thoracic spine likely meningioma. Patient did not have any neurological deficits, or signs of cord compression, no weakness or hyperreflexia, no sensory level. Findings positivefor severe neutral rigidity and back pain. Neurosurgery was consulted and emergently took the patient to the OR for a decompression, source control and laminectomy of C7-T1 and T8-T10 Postop course was not complicated, no new weakness. OR culture were followed, showed no growth. Patient had MSSA grown on blood culture from 04/21/2024, repeat blood culture on 04/23/2024 showed no growth. Rj was done showed no vegetation. Id recommended to continue cefazolin with end date 06/18/2024 and follow up with MRI spine with IV contrast. PICC was placed for the patient, but she pulled out the PICC lineand got agitated and noted acute psychosis. Pending IR guided CVC placement. MSSA bacteremia and osteomyelitis, diskitis, epidural abscess of thoracic spine - blood culture from 04/21 shows MSSA bacteremia, repeat blood culture negative - MRI spine Dorsal lower lumbar spine epidural abscess. Ventral epidural abscess extending from skull base through upper lumbar spine, S/p C3 to T1 and T7-T11 laminectomies for decompression and washout of epidural abscess ( 04/22/2024) - Intra op cultures 04/22 final results with no growth. no fungus, AFB. - TTE 04/21: no obvious vegetations, RJ 04/25/24: No evidence of valvular vegetations or perivalvularabscess - KRISTAL drains removed by neurosurgery on 04/26/24. - ID signed off. Continue with Cefazolin 2 grams Q8H. End date: 06/18/24. CVC can be removed after the completion of antibiotics and after ID follow up recommendation. -MRI spine with IV contrast will be needed for follow up prior to completion of IV antibiotics. Will order as outpatient. - patient is planned for discharge, IR placed PICC line but patient pulled out the PICC line. Now pending CVC by IR today. Acute Psychosis- Improved. - Patient more calm - No concern for infection, no metabolic etiology. - Continue Risperidone 0.5mg TID as per psych recommendation. Needs outpatient f/u - Neurosurgery re-evaluated patient, no concern for infectious etiology or neurological deficit. Nofurther imaging suggested. Transaminitis- Resolved -Abdominal US ordered given transaminitis, sludge in gallbladder. No evidence of acute cholecystitis. Transaminitis improving, suspect secondary to sepsis on admission. Left sided Loculated Pleural Effusion Enhancing left upper hemithorax pleural effusion, concerning for empyema and possibly direct extension of paraspinal infection noted on OSH CT. Repeat noncontrast CT chest 04/28/24 remarkable for small to moderate left pleural effusion with loculated components noted along left major fissure and posterior right hemithorax. Thoracic surgery evaluated, no indications for drainage of small residual left pleural effusion. Tofollow clinically and consider repeat imaging as needed. Outpatient follow up clinics/labs/studies: -MRI spine showed enhancing mass at T3-T4 is observed, but presumably meningioma although nonspecific. Nonspecific bone marrow enhancement at T10 vertebral body. Partially calcified enhancing right adnexal mass partially visualized. Need to follow up as outpatient with neurosurgery. DIFFERENTIAL AND PLAN: PHARMACOLOGIC VTE PROPHYLAXIS: hEParin CODE STATUS: No Code EXPECTED DISCHARGE DATE : to be determined I discussed with patient regarding diet, fluid intake, diagnosis, tests, medication and its side effect, medication management and discharge plan and verbalized understanding and agree with the plan. I spent a total of 36 minutes coordinating, documenting, and providing care for this patient excluding time spent in the performance of separately billed services. Please excuse any unintentional grammatical and syntactical errors as voice dictation was used to create this note. This should not deter from the intended meaning and clinical context. Please reach out should any clarification be needed. Thank you. * Miguelina Cain MD - 05/05/2024 11:29 AM EDT Images from the original note were not included. [facility] A474/A INTERVAL HISTORY: Patient is more calm, off restrains today. Continues to be calm. IR to place tunneled dialysis catheter today. Pending rehab placement. Medically stable I spoke with Maya Bruce who is her Foster sister, she stated that patient's biological mother and father both are and she would be the remaining family. Previously her friend Mariangel was helping her with decision making, now she has requested to call her foster sister. Maya is an RN and sheis willing to help with the decision making. Patient is alert awake and oriented to time place and person today, she has been calm. She was able to understand that she has epidural abscess and needs IV antibiotics and for that needs retirement vascular access. Since there is risk of pulling the catheter, IR placing tunneled CVC for the patient today. Also Maya also agrees her to get the tunneled CVC and continue IV antibiotics as recommended by ID. Objective Physical Exam Most Recent Vital Signs: BP: 126 mmHg/91 mmHg (05/05/24 1037) Pulse: 112 (05/05/24 1037) Resp: 16 (05/05/24 1037) Temp: 36.61 C (05/05/24 1037) Temp Summary: Temp Min: 36.3 C (97.3 F) Max: 36.8 C (98.2 F) SpO2: 100 % (05/05/24 1037) O2 flow rate: 0 L/MIN (05/03/24 0618) Supplemental O2 Delivery: Room Air, None (05/05/24 1037) Constitutional: Lying comfortably in bed, no apparent distress Eye: anicteric sclerae, extraocular movements intact Respiratory: Diminished breath sounds bilaterally, normal work of breathing. Cardiovascular: Regular rate and rhythm. No murmurs appreciated. Abdomen: Soft, nontender, nondistended. Bowel sounds present. Extremity/skin: No edema. Neurology: Awake, alert, oriented x3. Tangential in thought process. Strength 5/5 in bilateral upper and lower extremities. Sensation grossly intact. Psychiatry: Speech with normal pitch and rate. Hyperverbal. Urethral Catheter (Active) Number of days: 8 Peripheral Line Left 22 Gauge (Active) Number of days: 0 STUDIES: Encounter Orders Labs and other studies reviewed with pertinent findings noted below: No new labs BC 04/21: MSSA. Repeat Bcx 04/[address] Chest without contrast 04/27/2024 IMPRESSION 1. New small right pleural effusion. 2. Small to moderate left pleural effusion, increased from 04/18/2024. There are loculated components noted along the left major fissure and in the posterior right upper hemithorax towards the apex. 3. Postoperative changes from laminectomy at T8-T10. Assessment and Plan IMPRESSION : Principal Problem (Resolved): Bacteremia due to Staphylococcus Active Problems: Status post laminectomy Urinary retention Adjustment disorder Pleural effusion on left Altered mental status Resolved Problems: Other constipation Epidural abscess Acute osteomyelitis (HCC) Acute hypoxemic respiratory failure (HCC) 54 year old Ms. Ellis who no past medical history initially presented to presented to ED on 04/15for constipation and bloating where she had a CT performed which showed a partially calcified mucocele of the appendix. She then presented to [facility] on 04/18 for surgical evaluation for possible spinalinfection ratio but was noted to have difficulty ambulating, was found to be septic on admission with white cell count 27, elevated inflammatory markers. Imaging revealed left-sided pleural effusion and vertebral imaging concerning for T8-T9 osteomyelitis, diskitis, and epidural abscess. Blood culture grew MSSA bacteremia, repeat blood culture showed no growth. Neurosurgery and Orthopedic Surgerywere consulted for epidural hematoma, patient underwent MRI which showed epidural abscess extendingfrom skull base through upper lumbar spine and also in the lower spine. Also incidental extramedullary tumor of the upper thoracic spine likely meningioma. Patient did not have any neurological deficits, or signs of cord compression, no weakness or hyperreflexia, no sensory level. Findings positivefor severe neutral rigidity and back pain. Neurosurgery was consulted and emergently took the patient to the OR for a decompression, source control and laminectomy of C7-T1 and T8-T10 Postop course was not complicated, no new weakness. OR culture were followed, showed no growth. Patient had MSSA grown on blood culture from 04/21/2024, repeat blood culture on 04/23/2024 showed no growth. Rj was done showed no vegetation. Id recommended to continue cefazolin with end date 06/18/2024 and follow up with MRI spine with IV contrast. PICC was placed for the patient, but she pulled out the PICC lineand got agitated and noted acute psychosis. Pending IR guided CVC placement. MSSA bacteremia and osteomyelitis, diskitis, epidural abscess of thoracic spine - blood culture from 04/21 shows MSSA bacteremia, repeat blood culture negative - MRI spine Dorsal lower lumbar spine epidural abscess. Ventral epidural abscess extending from skull base through upper lumbar spine, S/p C3 to T1 and T7-T11 laminectomies for decompression and washout of epidural abscess ( 04/22/2024) - Intra op cultures 04/22 final results with no growth. no fungus, AFB. - TTE 04/21: no obvious vegetations, RJ 04/25/24: No evidence of valvular vegetations or perivalvularabscess - KRISTAL drains removed by neurosurgery on 04/26/24. - ID signed off. Continue with Cefazolin 2 grams Q8H. End date: 06/18/24. CVC can be removed after the completion of antibiotics and after ID follow up recommendation. -MRI spine with IV contrast will be needed for follow up prior to completion of IV antibiotics. Will order as outpatient. - patient is planned for discharge, IR placed PICC line but patient pulled out the PICC line. Now pending CVC by IR today. Acute Psychosis- Improved. - Patient more calm - No concern for infection, no metabolic etiology. - Continue Risperidone 0.5mg TID as per psych recommendation. Needs outpatient f/u - Neurosurgery re-evaluated patient, no concern for infectious etiology or neurological deficit. Nofurther imaging suggested. Transaminitis- Resolved -Abdominal US ordered given transaminitis, sludge in gallbladder. No evidence of acute cholecystitis. Transaminitis improving, suspect secondary to sepsis on admission. Left sided Loculated Pleural Effusion Enhancing left upper hemithorax pleural effusion, concerning for empyema and possibly direct extension of paraspinal infection noted on OSH CT. Repeat noncontrast CT chest 04/28/24 remarkable for small to moderate left pleural effusion with loculated components noted along left major fissure and posterior right hemithorax. Thoracic surgery evaluated, no indications for drainage of small residual left pleural effusion. Tofollow clinically and consider repeat imaging as needed. Outpatient follow up clinics/labs/studies: -MRI spine showed enhancing mass at T3-T4 is observed, but presumably meningioma although nonspecific. Nonspecific bone marrow enhancement at T10 vertebral body. Partially calcified enhancing right adnexal mass partially visualized. Need to follow up as outpatient with neurosurgery. DIFFERENTIAL AND PLAN: PHARMACOLOGIC VTE PROPHYLAXIS: hEParin CODE STATUS: No Code EXPECTED DISCHARGE DATE : to be determined I discussed with patient regarding diet, fluid intake, diagnosis, tests, medication and its side effect, medication management and discharge plan and verbalized understanding and agree with the plan. I spent a total of 51 minutes coordinating, documenting, and providing care for this patient excluding time spent in the performance of separately billed services. Please excuse any unintentional grammatical and syntactical errors as voice dictation was used to create this note. This should not deter from the intended meaning and clinical context. Please reach out should any clarification be needed. Thank you. * Miguelina Cain MD - 05/04/2024 11:08 AM EDT Images from the original note were not included. [facility] A474/A INTERVAL HISTORY: ON: Agitated, threatening/attempting to hurt staff (kicking, biting, throwing objects) despite being on bilateral wrist restraints. Given IM Zyprexa. Patient is more calm, off restrains today Will evaluate if she remains calms, can request for PICC line. Objective Physical Exam Most Recent Vital Signs: BP: 115 mmHg/67 mmHg (05/04/24553) Pulse: 80 (05/04/24553) Resp: 19 (05/04/24614) Temp: 35.61 C (05/04/24553) Temp Summary: Temp Min: 35.6 C (96.1 F) Max: 36.5 C (97.7 F) SpO2: 97 % (05/04/24553) O2 flow rate: 0 L/MIN (05/03/24617) Supplemental O2 Delivery: Room Air, None (05/04/24553) Constitutional: Lying comfortably in bed, no apparent distress Eye: anicteric sclerae, extraocular movements intact Respiratory: Diminished breath sounds bilaterally, normal work of breathing. Cardiovascular: Regular rate and rhythm. No murmurs appreciated. Abdomen: Soft, nontender, nondistended. Bowel sounds present. Extremity/skin: No edema. Neurology: Awake, alert, oriented x3. Tangential in thought process. Strength 5/5 in bilateral upper and lower extremities. Sensation grossly intact. Psychiatry: Speech with normal pitch and rate. Hyperverbal. Urethral Catheter (Active) Number of days: 7 STUDIES: Encounter Orders Labs and other studies reviewed with pertinent findings noted below: No new labs BC 04/21: MSSA. Repeat Bcx 04/[address] Chest without contrast 04/27/2024 IMPRESSION 1. New small right pleural effusion. 2. Small to moderate left pleural effusion, increased from 04/18/2024. There are loculated components noted along the left major fissure and in the posterior right upper hemithorax towards the apex. 3. Postoperative changes from laminectomy at T8-T10. Assessment and Plan IMPRESSION : Principal Problem (Resolved): Bacteremia due to Staphylococcus Active Problems: Status post laminectomy Urinary retention Adjustment disorder Pleural effusion on left Altered mental status Resolved Problems: Other constipation Epidural abscess Acute osteomyelitis (HCC) Acute hypoxemic respiratory failure (HCC) 54 year old Ms. Ellis who no past medical history initially presented to presented to ED on 04/15for constipation and bloating where she had a CT performed which showed a partially calcified mucocele of the appendix. She then presented to [facility] on 04/18 for surgical evaluation for possible spinalinfection ratio but was noted to have difficulty ambulating, was found to be septic on admission with white cell count 27, elevated inflammatory markers. Imaging revealed left-sided pleural effusion and vertebral imaging concerning for T8-T9 osteomyelitis, diskitis, and epidural abscess. Blood culture grew MSSA bacteremia, repeat blood culture showed no growth. Neurosurgery and Orthopedic Surgerywere consulted for epidural hematoma, patient underwent MRI which showed epidural abscess extendingfrom skull base through upper lumbar spine and also in the lower spine. Also incidental extramedullary tumor of the upper thoracic spine likely meningioma. Patient did not have any neurological deficits, or signs of cord compression, no weakness or hyperreflexia, no sensory level. Findings positivefor severe neutral rigidity and back pain. Neurosurgery was consulted and emergently took the patient to the OR for a decompression, source control and laminectomy of C7-T1 and T8-T10 Postop course was not complicated, no new weakness. OR culture were followed, showed no growth. Patient had MSSA grown on blood culture from 04/21/2024, repeat blood culture on 04/23/2024 showed no growth. Rj was done showed no vegetation. Id recommended to continue cefazolin with end date 06/18/2024 and follow up with MRI spine with IV contrast. PICC was placed for the patient, but she pulled out the PICC lineand got agitated and noted acute psychosis. Acute Psychosis Change in mentation, auditory and visual hallucination, patient repeatedly talking. Which has improved today, off restrains. She was very agitated overnight. No concern for infection, no metabolic etiology. Started on Risperidone as per psych recommendation. Will continue that. Psych on board. Neurosurgery re-evaluated patient, no concern for infectious etiology or neurological deficit. No further imaging suggested. MSSA bacteremia and osteomyelitis, diskitis, epidural abscess of thoracic spine - MRI spine Dorsal lower lumbar spine epidural abscess. Ventral epidural abscess extending from skull base through upper lumbar spine, S/p C3 to T1 and T7-T11 laminectomies for decompression and washout of epidural abscess ( 04/22/2024) - blood culture from 04/21 shows MSSA bacteremia, repeat blood culture negative - Intra op cultures 04/22 final results with no growth. no fungus, AFB. - TTE 04/21: no obvious vegetations, RJ 04/25/24: No evidence of valvular vegetations or perivalvularabscess - KRISTAL drains removed by neurosurgery on 04/26/24. - ID signed off. Continue with Cefazolin 2 grams Q8H. End date: 06/18/24. ID follow up within 6 weeks. -continue monitoring labs Wednesday. -MRI spine with IV contrast will be needed for follow up prior to completion of IV antibiotics. - patient is planned for discharge, IR placed PICC line but patient pulled out the PICC line. Now agitated on restrain. Transaminitis- Resolved -Abdominal US ordered given transaminitis, sludge in gallbladder. No evidence of acute cholecystitis. Transaminitis improving, suspect secondary to sepsis on admission. Left sided Loculated Pleural Effusion Enhancing left upper hemithorax pleural effusion, concerning for empyema and possibly direct extension of paraspinal infection noted on OSH CT. Repeat noncontrast CT chest 04/28/24 remarkable for small to moderate left pleural effusion with loculated components noted along left major fissure and posterior right hemithorax. Thoracic surgery evaluated, no indications for drainage of small residual left pleural effusion. Tofollow clinically and consider repeat imaging as needed. Outpatient follow up clinics/labs/studies: -MRI spine showed enhancing mass at T3-T4 is observed, but presumably meningioma although nonspecific. Nonspecific bone marrow enhancement at T10 vertebral body. Partially calcified enhancing right adnexal mass partially visualized. Need to follow up as outpatient with neurosurgery DIFFERENTIAL AND PLAN: PHARMACOLOGIC VTE PROPHYLAXIS: hEParin CODE STATUS: No Code EXPECTED DISCHARGE DATE : to be determined I discussed with patient regarding diet, fluid intake, diagnosis, tests, medication and its side effect, medication management and discharge plan and verbalized understanding and agree with the plan. I spent a total of 51 minutes coordinating, documenting, and providing care for this patient excluding time spent in the performance of separately billed services. Please excuse any unintentional grammatical and syntactical errors as voice dictation was used to create this note. This should not deter from the intended meaning and clinical context. Please reach out should any clarification be needed. Thank you. * Miguelina Cani MD - 05/03/2024 2:13 PM EDT Images from the original note were not included. [facility] A474/A INTERVAL HISTORY: Patient was agitated and aggressive overnight. She was on restrain this morning. She had pulled PICC line yesterday. She was found to be confused, had visual hallucinations, was talking to herself. No psych history noted in the chart. Psychiatry consulted for evaluation. Objective Physical Exam Most Recent Vital Signs: BP: 133 mmHg/74 mmHg (05/03/24 1020) Pulse: 104 (05/03/24 1020) Resp: 16 (05/03/24 1351) Temp: 36.11 C (05/03/24 1020) Temp Summary: Temp Min: 36.1 C (97 F) Max: 36.8 C (98.2 F) SpO2: 98 % (05/03/24 1020) O2 flow rate: 0 L/MIN (05/03/24 0618) Supplemental O2 Delivery: Room Air, None (05/03/24 1020) Constitutional: Lying comfortably in bed, no apparent distress Eye: anicteric sclerae, extraocular movements intact Respiratory: Diminished breath sounds bilaterally, normal work of breathing. Cardiovascular: Regular rate and rhythm. No murmurs appreciated. Abdomen: Soft, nontender, nondistended. Bowel sounds present. Extremity/skin: No edema. Neurology: Awake, alert, oriented x3. Tangential in thought process. Strength 5/5 in bilateral upper and lower extremities. Sensation grossly intact. Psychiatry: Speech with normal pitch and rate. Hyperverbal. Urethral Catheter (Active) Number of days: 6 STUDIES: Encounter Orders Labs and other studies reviewed with pertinent findings noted below: No new labs BC 04/21: MSSA. Repeat Bcx 04/[address] Chest without contrast 04/27/2024 IMPRESSION 1. New small right pleural effusion. 2. Small to moderate left pleural effusion, increased from 04/18/2024. There are loculated components noted along the left major fissure and in the posterior right upper hemithorax towards the apex. 3. Postoperative changes from laminectomy at T8-T10. Assessment and Plan IMPRESSION : Principal Problem (Resolved): Bacteremia due to Staphylococcus Active Problems: Status post laminectomy Urinary retention Adjustment disorder Pleural effusion on left Resolved Problems: Other constipation Epidural abscess Acute osteomyelitis (HCC) Acute hypoxemic respiratory failure (HCC) 54 year old Ms. Ellis who no past medical history initially presented to presented to ED on 04/15for constipation and bloating where she had a CT performed which showed a partially calcified mucocele of the appendix. She then presented to [facility] on 04/18 for surgical evaluation for possible spinalinfection ratio but was noted to have difficulty ambulating, was found to be septic on admission with white cell count 27, elevated inflammatory markers. Imaging revealed left-sided pleural effusion and vertebral imaging concerning for T8-T9 osteomyelitis, diskitis, and epidural abscess. Blood culture grew MSSA bacteremia, repeat blood culture showed no growth. Neurosurgery and Orthopedic Surgerywere consulted for epidural hematoma, patient underwent MRI which showed epidural abscess extendingfrom skull base through upper lumbar spine and also in the lower spine. Also incidental extramedullary tumor of the upper thoracic spine likely meningioma. Patient did not have any neurological deficits, or signs of cord compression, no weakness or hyperreflexia, no sensory level. Findings positivefor severe neutral rigidity and back pain. Neurosurgery was consulted and emergently took the patient to the OR for a decompression, source control and laminectomy of C7-T1 and T8-T10 Postop course was not complicated, no new weakness. OR culture were followed, showed no growth. Patient had MSSA grown on blood culture from 04/21/2024, repeat blood culture on 04/23/2024 showed no growth. Rj was done showed no vegetation. Id recommended to continue cefazolin with end date 06/18/2024 and follow up with MRI spine with IV contrast. Acute Delirium vs Psychosis Change in mentation, auditory and visual hallucination, patient repeatedly talking Routine labs ordered, cautioned for worsening infection might need further imaging Neurosurgery on board, requested for re-evaluation Psychiatry consulted for further management MSSA bacteremia and osteomyelitis, diskitis, epidural abscess of thoracic spine - MRI spine Dorsal lower lumbar spine epidural abscess. Ventral epidural abscess extending from skull base through upper lumbar spine, S/p C3 to T1 and T7-T11 laminectomies for decompression and washout of epidural abscess ( 04/22/2024) - blood culture from 04/21 shows MSSA bacteremia, repeat blood culture negative - Intra op cultures 04/22 final results with no growth. no fungus, AFB. - TTE 04/21: no obvious vegetations, RJ 04/25/24: No evidence of valvular vegetations or perivalvularabscess - KRISTAL drains removed by neurosurgery on 04/26/24. - ID signed off. Continue with Cefazolin 2 grams Q8H. End date: 06/18/24. ID follow up within 6 weeks. -continue monitoring labs Wednesday. -MRI spine with IV contrast will be needed for follow up prior to completion of IV antibiotics. - patient is planned for discharge, IR placed PICC line but patient pulled out the PICC line. Now agitated on restrain. Transaminitis- Resolved -Abdominal US ordered given transaminitis, sludge in gallbladder. No evidence of acute cholecystitis. Transaminitis improving, suspect secondary to sepsis on admission. Left sided Loculated Pleural Effusion Enhancing left upper hemithorax pleural effusion, concerning for empyema and possibly direct extension of paraspinal infection noted on OSH CT. Repeat noncontrast CT chest 04/28/24 remarkable for small to moderate left pleural effusion with loculated components noted along left major fissure and posterior right hemithorax. Thoracic surgery evaluated, no indications for drainage of small residual left pleural effusion. Tofollow clinically and consider repeat imaging as needed. Outpatient follow up clinics/labs/studies: -MRI spine showed enhancing mass at T3-T4 is observed, but presumably meningioma although nonspecific. Nonspecific bone marrow enhancement at T10 vertebral body. Partially calcified enhancing right adnexal mass partially visualized. Need to follow up as outpatient with neurosurgery DIFFERENTIAL AND PLAN: PHARMACOLOGIC VTE PROPHYLAXIS: hEParin CODE STATUS: No Code EXPECTED DISCHARGE DATE : to be determined I discussed with patient regarding diet, fluid intake, diagnosis, tests, medication and its side effect, medication management and discharge plan and verbalized understanding and agree with the plan. I spent a total of 51 minutes coordinating, documenting, and providing care for this patient excluding time spent in the performance of separately billed services. Please excuse any unintentional grammatical and syntactical errors as voice dictation was used to create this note. This should not deter from the intended meaning and clinical context. Please reach out should any clarification be needed. Thank you. * Mery Kramer MD - 05/02/2024 10:24 AM EDT Images from the original note were not included. [facility] A460/A INTERVAL HISTORY: NAOE. Patient is doing well this morning denying any pain or discomfort. Last bowel movement yesterday 04/30/24. She denies any shortness of breath, abdominal discomfort, nausea or vomiting. She is medically stable and ready for discharge. Accepted to inpatient rehabilitation facility - [facility]. Transportation available for tomorrow. Objective Physical Exam Most Recent Vital Signs: BP: 122 mmHg/78 mmHg (05/02/24626) Pulse: 78 (05/02/24626) Resp: 18 (05/02/24626) Temp: 36.78 C (05/02/24626) Temp Summary: Temp Min: 36.6 C (97.9 F) Max: 37 C (98.6 F) SpO2: 100 % (05/02/24626) O2 flow rate: 0 L/MIN (05/01/24 1148) Supplemental O2 Delivery: Room Air, None (05/02/24 0700) Constitutional: Lying comfortably in bed, no apparent distress Eye: anicteric sclerae, extraocular movements intact Respiratory: Diminished breath sounds bilaterally, normal work of breathing. Cardiovascular: Regular rate and rhythm. No murmurs appreciated. Abdomen: Soft, nontender, nondistended. Bowel sounds present. Extremity/skin: No edema. Neurology: Awake, alert, oriented x3. Tangential in thought process. Strength 5/5 in bilateral upper and lower extremities. Sensation grossly intact. Psychiatry: Speech with normal pitch and rate. Hyperverbal. Urethral Catheter (Active) Number of days: 5 Power PICC Single Lumen Right Arm (Active) Number of days: 1 STUDIES: Encounter Orders Labs and other studies reviewed with pertinent findings noted below: No new labs BC 04/21: MSSA. Repeat Bcx 04/[address] Chest without contrast 04/27/2024 IMPRESSION 1. New small right pleural effusion. 2. Small to moderate left pleural effusion, increased from 04/18/2024. There are loculated components noted along the left major fissure and in the posterior right upper hemithorax towards the apex. 3. Postoperative changes from laminectomy at T8-T10. Assessment and Plan IMPRESSION : Principal Problem (Resolved): Bacteremia due to Staphylococcus Active Problems: Status post laminectomy Urinary retention Adjustment disorder Pleural effusion on left Resolved Problems: Other constipation Epidural abscess Acute osteomyelitis (HCC) Acute hypoxemic respiratory failure (HCC) DIFFERENTIAL AND PLAN: 54 year old Ms. Ellis comes after being transferred from [facility] for further mangement - is being management for her bactermia, s/p laminectomy by neurosurgery. Staph bacteremia and osteomyelitis, diskitis, epidural abscess of thoracic spine S/p C3 to T1 and T7-T11 laminectomies for decompression and washout of epidural abscess ( 04/22/2024) Transaminitis MRI spine Dorsal lower lumbar spine epidural abscess. Ventral epidural abscess extending from skull base through upper lumbar spine. Brain MRI No evidence for intracranial extension of the abscess. Diffuse T1 hypointensity in the calvarium is nonspecific and may relate to red marrow conversion Similar to prior CT, enhancing mass at T3-T4 is observed, but presumably meningioma although nonspecific. intradural metastasis. severe spinal cord compression at T3-T4. moderate/severe spinal cord compression at T9-T10 and T8- T9. moderate cervical spinal canal narrowing.Partially loculated, enhancing left upper hemithorax pleural effusion, concerning for empyema and possibly direct extension of paraspinal infection. Nonspecific bone marrow enhancement at T10 vertebral body. Malignancy/metastasis not excluded. Partially calcified enhancing right adnexal mass partially visualized. BC 04/21: Staph aureus Bcx 04/23 No growth Intra op cultures 04/22 final results with no growth. no fungus, AFB TTE 04/21: no obvious vegetations RJ 04/25/24: No evidence of valvular vegetations or perivalvular abscess - telemetry monitoring - neurosurgical follow up, appreciate recommendations - KRISTAL drains removed by neurosurgery on 04/26/24. - Will need outpatient follow up with neurosurgery within 2 weeks for wound check. - ID following, continue with Cefazolin 2 grams Q8H. End date: 06/18/24. -Will require CBC with diff, CMP and CRP weekly. -ID follow up within 6 weeks. -MRI spine with IV contrast will be needed for follow up prior to completion of IV antibiotics. -neurocheck q4, fall, seizure precauations -PT/OT follow up ([facility] 12 04/23 ) -R arm PICC in place. She is otherwise ready for discharge to inpatient rehab facility. Plan for discharge tomorrow. -Abdominal US ordered given transaminitis, sludge in gallbladder. No evidence of acute cholecystitis. Transaminitis improving, suspect secondary to sepsis on admission. Left sided Loculated Pleural Effusion Enhancing left upper hemithorax pleural effusion, concerning for empyema and possibly direct extension of paraspinal infection noted on OSH CT. Repeat CXR here with no discernable left pleural effusion. Repeat noncontrast CT chest 04/28/24 remarkable for small to moderate left pleural effusion with loculated components noted along left major fissure and posterior right hemithorax. -Thoracic surgery evaluated, no indications for drainage of small residual left pleural effusion. To follow clinically and consider repeat imaging as needed. Outpatient follow up clinics/labs/studies: -MRI spine showed enhancing mass at T3-T4 is observed, but presumably meningioma although nonspecific. Nonspecific bone marrow enhancement at T10 vertebral body. Partially calcified enhancing right adnexal mass partially visualized. PHARMACOLOGIC VTE PROPHYLAXIS: hEParin CODE STATUS: No Code EXPECTED DISCHARGE DATE : to be determined I spent a total of 30 minutes coordinating, documenting, and providing care for this patient excluding time spent in the performance of separately billed services. * Mery Kramer MD - 05/01/2024 2:28 PM EDT Images from the original note were not included. [facility] A460/A INTERVAL HISTORY: No acute overnight events. Patient without complaints this morning. Denies any dizziness, headache,abdominal pain, nausea or vomiting. Underwent right arm PICC line placement today with interventional radiology. She is otherwise medically ready and stable for discharge. Has been accepted to inpatient rehab at [facility]. Transport requested and pending. Objective Physical Exam Most Recent Vital Signs: BP: 151 mmHg/78 mmHg (05/01/24 1400) Pulse: 76 (05/01/24 1400) Resp: 18 (05/01/24 1400) Temp: 36.61 C (05/01/24 1400) Temp Summary: Temp Min: 36.4 C (97.5 F) Max: 37.2 C (99 F) SpO2: 100 % (05/01/24 1400) O2 flow rate: 0 L/MIN (05/01/24 1148) Supplemental O2 Delivery: Room Air, None (05/01/24 1400) Constitutional: pleasant female lying comfortably in bed in no apparent distress Eye: anicteric sclerae, extraocular movements intact Respiratory: Normal work of breathing, diminished breath sounds bilaterally. Cardiovascular: Regular rate and rhythm. No murmurs appreciated. Abdomen: soft, non-tender, non-distended. Normoactive bowel sounds present. Extremity/skin: No edema. Neurology: Awake, alert and oriented x3. Strength 5/5 in bilateral upper and lower extremity. Psychiatry: Speech with normal pitch and rate. Hyperverbal, tangential thought process. Urethral Catheter (Active) Number of days: 4 Power PICC Single Lumen Right Arm (Active) Number of days: 0 STUDIES: Encounter Orders Labs and other studies reviewed with pertinent findings noted below: No new labs BC 04/21: MSSA. Repeat Bcx 04/[address] Chest without contrast 04/27/2024 IMPRESSION 1. New small right pleural effusion. 2. Small to moderate left pleural effusion, increased from 04/18/2024. There are loculated components noted along the left major fissure and in the posterior right upper hemithorax towards the apex. 3. Postoperative changes from laminectomy at T8-T10. Assessment and Plan IMPRESSION : Principal Problem (Resolved): Bacteremia due to Staphylococcus Active Problems: Status post laminectomy Urinary retention Adjustment disorder Pleural effusion on left Resolved Problems: Other constipation Epidural abscess Acute osteomyelitis (HCC) Acute hypoxemic respiratory failure (HCC) DIFFERENTIAL AND PLAN: 54 year old Ms. Ellis comes after being transferred from [facility] for further mangement - is being management for her bactermia, s/p laminectomy by neurosurgery. Staph bacteremia and osteomyelitis, diskitis, epidural abscess of thoracic spine S/p C3 to T1 and T7-T11 laminectomies for decompression and washout of epidural abscess ( 04/22/2024) Transaminitis MRI spine Dorsal lower lumbar spine epidural abscess. Ventral epidural abscess extending from skull base through upper lumbar spine. Brain MRI No evidence for intracranial extension of the abscess. Diffuse T1 hypointensity in the calvarium is nonspecific and may relate to red marrow conversion Similar to prior CT, enhancing mass at T3-T4 is observed, but presumably meningioma although nonspecific. intradural metastasis. severe spinal cord compression at T3-T4. moderate/severe spinal cord compression at T9-T10 and T8- T9. moderate cervical spinal canal narrowing.Partially loculated, enhancing left upper hemithorax pleural effusion, concerning for empyema and possibly direct extension of paraspinal infection. Nonspecific bone marrow enhancement at T10 vertebral body. Malignancy/metastasis not excluded. Partially calcified enhancing right adnexal mass partially visualized. BC 04/21: Staph aureus Bcx 04/23 No growth Intra op cultures 04/22 final results with no growth. no fungus, AFB TTE 04/21: no obvious vegetations RJ 04/25/24: No evidence of valvular vegetations or perivalvular abscess - telemetry monitoring - neurosurgical follow up, appreciate recommendations - KRISTAL drains removed by neurosurgery on 04/26/24. - Will need outpatient follow up with neurosurgery within 2 weeks for wound check. - ID following, continue with Cefazolin 2 grams Q8H. End date: 06/18/24. -Will require CBC with diff, CMP and CRP weekly. -ID follow up within 6 weeks. -MRI spine with IV contrast will be needed for follow up prior to completion of IV antibiotics. -neurocheck q4, fall, seizure precauations -PT/OT follow up ([facility] 12 04/23 ) -R arm PICC in place. She is otherwise ready for discharge to inpatient rehab facility. Awaiting transportation. -Abdominal US ordered given transaminitis, sludge in gallbladder. No evidence of acute cholecystitis. Transaminitis improving, suspect secondary to sepsis on admission. Left sided Loculated Pleural Effusion Enhancing left upper hemithorax pleural effusion, concerning for empyema and possibly direct extension of paraspinal infection noted on OSH CT. Repeat CXR here with no discernable left pleural effusion. Repeat noncontrast CT chest 04/28/24 remarkable for small to moderate left pleural effusion with loculated components noted along left major fissure and posterior right hemithorax. -Thoracic surgery evaluated, no indications for drainage of small residual left pleural effusion. To follow clinically and consider repeat imaging as needed. Outpatient follow up clinics/labs/studies: -MRI spine showed enhancing mass at T3-T4 is observed, but presumably meningioma although nonspecific. Nonspecific bone marrow enhancement at T10 vertebral body. Partially calcified enhancing right adnexal mass partially visualized. PHARMACOLOGIC VTE PROPHYLAXIS: hEParin CODE STATUS: No Code EXPECTED DISCHARGE DATE : to be determined I spent a total of 30 minutes coordinating, documenting, and providing care for this patient excluding time spent in the performance of separately billed services. * Mery Kramer MD - 04/30/2024 6:57 AM EDT Images from the original note were not included. [facility] A460/A INTERVAL HISTORY: NAOE. Patient is doing well this morning. Reports no complaints. Denies any headache, dizziness, neck pain, nausea, vomiting, abdominal pain, focal weakness. I informed the patient that I was unable to contact her friend Mariangel Sullivan as she did not answer the phone despite multiple attempts. She told me to not call her sister Maya. States would like for me to attempt to reach her friend Margi Menezes. Patient reports she is looking forward to discharge to inpatient rehab. She is currently medically ready and stable for discharge however awaiting PICC line with IR, scheduled for tomorrow. Objective Physical Exam Most Recent Vital Signs: BP: 146 mmHg/92 mmHg (04/30/24 104) Pulse: 81 (04/30/24 104) Resp: 18 (04/30/241044) Temp: 36.5 C (04/30/24 104) Temp Summary: Temp Min: 36.4 C (97.5 F) Max: 37.2 C (99 F) SpO2: 100 % (04/30/24 1045) O2 flow rate: 0 L/MIN (04/28/24 1600) Supplemental O2 Delivery: Room Air, None (04/30/241044) Constitutional: Pleasant female, cooperative lying in bed in no apparent distress Eye: anicteric sclerae, extraocular movements intact Respiratory: Diminished breath sounds. Normal work of breathing. No crackles or wheezing. Cardiovascular: Regular rate and rhythm. No murmurs appreciated. Abdomen: Soft, nontender, nondistended. Normoactive bowel sounds Extremity/skin: No edema. Neurology: Awake alert and oriented x3. Strength 5/5 in bilateral upper and lower extremity. Psychiatry: Normal pitch and rate. Hyperverbal, tangential thought process. Urethral Catheter (Active) Number of days: 3 Peripheral Line Left Wrist 18 Gauge (Active) Number of days: 8 Peripheral Line Lower;Right Arm 22 Gauge (Active) Number of days: 6 STUDIES: Encounter Orders Labs and other studies reviewed with pertinent findings noted below: No new labs this morning. BC 04/21: MSSA. Repeat Bcx 04/[address] Chest without contrast 04/27/2024 IMPRESSION 1. New small right pleural effusion. 2. Small to moderate left pleural effusion, increased from 04/18/2024. There are loculated components noted along the left major fissure and in the posterior right upper hemithorax towards the apex. 3. Postoperative changes from laminectomy at T8-T10. Assessment and Plan IMPRESSION : Principal Problem (Resolved): Bacteremia due to Staphylococcus Active Problems: Other constipation Status post laminectomy Urinary retention Adjustment disorder Pleural effusion on left Resolved Problems: Epidural abscess Acute osteomyelitis (HCC) Acute hypoxemic respiratory failure (HCC) DIFFERENTIAL AND PLAN: 54 year old Ms. Ellis comes after being transferred from [facility] for further mangement - is being management for her bactermia, s/p laminectomy by neurosurgery. Staph bacteremia and osteomyelitis, diskitis, epidural abscess of thoracic spine S/p C3 to T1 and T7-T11 laminectomies for decompression and washout of epidural abscess ( 04/22/2024) Transaminitis MRI spine Dorsal lower lumbar spine epidural abscess. Ventral epidural abscess extending from skull base through upper lumbar spine. Brain MRI No evidence for intracranial extension of the abscess. Diffuse T1 hypointensity in the calvarium is nonspecific and may relate to red marrow conversion Similar to prior CT, enhancing mass at T3-T4 is observed, but presumably meningioma although nonspecific. intradural metastasis. severe spinal cord compression at T3-T4. moderate/severe spinal cord compression at T9-T10 and T8- T9. moderate cervical spinal canal narrowing.Partially loculated, enhancing left upper hemithorax pleural effusion, concerning for empyema and possibly direct extension of paraspinal infection. Nonspecific bone marrow enhancement at T10 vertebral body. Malignancy/metastasis not excluded. Partially calcified enhancing right adnexal mass partially visualized. BC 04/21: Staph aureus Bcx 04/23 No growth Intra op cultures 04/22 final results with no growth. no fungus, AFB TTE 04/21: no obvious vegetations RJ 04/25/24: No evidence of valvular vegetations or perivalvular abscess - telemetry monitoring - neurosurgical follow up, appreciate recommendations - KRISTAL drains removed by neurosurgery on 04/26/24. - Will need outpatient follow up with neurosurgery within 2 weeks for wound check. - ID following, continue with Cefazolin 2 grams Q8H. End date: 06/18/24. -Will require CBC with diff, CMP and CRP weekly. -ID follow up within 6 weeks. -MRI spine with IV contrast will be needed for follow up prior to completion of IV antibiotics. -neurocheck q4, fall, seizure precauations -PT/OT follow up ([facility] 12 04/23 ) -PICC line ordered to be placed with IR, procedure rescheduled for tomorrow. Awaiting PICC line placement, she is otherwise ready for discharge to inpatient rehab facility. -Abdominal US ordered given transaminitis, sludge in gallbladder. No evidence of acute cholecystitis. Transaminitis improving, suspect secondary to sepsis on admission. Left sided Loculated Pleural Effusion Enhancing left upper hemithorax pleural effusion, concerning for empyema and possibly direct extension of paraspinal infection noted on OSH CT. Repeat CXR here with no discernable left pleural effusion. Repeat noncontrast CT chest 04/28/24 remarkable for small to moderate left pleural effusion with loculated components noted along left major fissure and posterior right hemithorax. -Thoracic surgery evaluated, no indications for drainage of small residual left pleural effusion. To follow clinically and consider repeat imaging as needed. Outpatient follow up clinics/labs/studies: -MRI spine showed enhancing mass at T3-T4 is observed, but presumably meningioma although nonspecific. Nonspecific bone marrow enhancement at T10 vertebral body. Partially calcified enhancing right adnexal mass partially visualized. PHARMACOLOGIC VTE PROPHYLAXIS: hEParin CODE STATUS: No Code EXPECTED DISCHARGE DATE : to be determined I spent a total of 45 minutes coordinating, documenting, and providing care for this patient excluding time spent in the performance of separately billed services. * Mery Kramer MD - 04/29/2024 6:59 AM EDT Images from the original note were not included. [facility] A460/A INTERVAL HISTORY: No acute overnight events. Patient offers no complaints this morning. Unfortunately did not get PICC line placed via Interventional Radiology yesterday. She offers no complaints this morning. Denies any headache, dizziness, chest pain, shortness of breath, nausea or vomiting. Objective Physical Exam Most Recent Vital Signs: BP: 129 mmHg/72 mmHg (04/29/24701) Pulse: 88 (04/29/24701) Resp: 18 (04/29/24701) Temp: 36.22 C (04/29/24701) Temp Summary: Temp Min: 36 C (96.8 F) Max: 37.5 C (99.5 F) SpO2: 100 % (04/29/24701) O2 flow rate: 0 L/MIN (04/28/24 1600) Supplemental O2 Delivery: Room Air, None (04/29/24 0800) Constitutional: Lying in bed, appears to be comfortable Eye: anicteric sclerae, extraocular movements intact Respiratory: Diminished breath sounds. Normal work of breathing. No crackles or wheezing. Cardiovascular: Regular rate and rhythm. No murmurs appreciated. Abdomen: Soft, nontender, nondistended. Normoactive bowel sounds Extremity/skin: No edema Neurology: AAOx3. Strength 5/5 in bilateral upper and lower extremity. Psychiatry : Hyperverbal, tangential thought process Urethral Catheter (Active) Number of days: 2 Peripheral Line Left Wrist 18 Gauge (Active) Number of days: 7 Peripheral Line Lower;Right Arm 22 Gauge (Active) Number of days: 5 STUDIES: Encounter Orders Labs and other studies reviewed with pertinent findings noted below: Chemistry Panel: Lab results within last 7 days (see chart for full results) Units 04/29/24 0639 04/28/24 0724 04/27/24 0733 04/26/24 0916 04/25/24 0634 04/24/24 1237 04/24/24 0348 04/23/24 0531 Sodium mmol/L 139 140 139 139 135 -- 139 142 Potassium mmol/L 3.8 4.3 3.8 3.8 3.7 -- 4.3 3.8 Chloride mmol/L 100 103 101 101 100 -- 105 105 CO2 mmol/L 26 26 25 28 25 -- 27 24 BUN mg/dL 10 10 13 10 11 -- 13 16 Creatinine mg/dL 0.4* 0.5 0.5 0.5 0.5 -- 0.5 0.5 Estimated Glomerular Filtration Rate mL/min >90 >90 >90 >90 >90 -- >90 >90 Glucose mg/dL 85 95 83 96 101 -- 128* 122* Calcium mg/dL 8.5 8.4 8.3* 8.4 7.9* -- 7.7* 8.1* Magnesium mg/dL 2.4 2.5 2.4 2.4 2.2 -- 2.2 2.5 Phosphorus mg/dL 3.4 2.7 2.4* 2.1* 2.2* 2.1* 1.4* 3.2 Anion Gap mmol/L 13 11 13 10 10 -- 7 13 Complete Blood Count: Lab results within last 7 days (see chart for full results) Units 04/29/24 0639 04/28/24 0724 04/27/24 0733 04/26/24 0916 04/25/24 0634 04/24/248 04/23/24 0531 WBC K/uL 11.64* 14.49* 18.90* 20.20* 23.48* 26.74* 29.10* HGB g/dL 8.6* 8.8* 8.8* 9.4* 8.8* 8.3* 8.9* HCT % 27.0* 27.3* 27.4* 28.7* 25.6* 24.6* 26.5* PLT K/uL 764* 680* 770* 752* 545* 449* 374 MCV fL 95.1 94.5 94.5 92.9 90.5 90.1 91.1 Liver Function Panel: Lab results within last 7 days (see chart for full results) Units 04/29/24 0639 04/28/24 0724 04/27/24 0733 04/26/24 0916 04/25/24 0634 04/24/24 0348 04/23/24 0531 Albumin g/dL 2.8* 2.4* 2.8* 2.7* 2.7* 2.5* 2.9* Protein g/dL 5.8* 5.5* 5.6* 5.6* 5.3* 4.8* 5.3* Bilirubin, Total mg/dL 0.4 0.4 0.5 0.6 0.7 0.7 0.8 Bilirubin, Direct mg/dL <0.2 <0.2 0.2 0.2 0.3 0.3 0.4* AST U/L 58* 55* 49* 58* 64* 35 38* ALT U/L 33 33 34 48* 48* 38* 46* Alkaline Phosphatase U/L 158* 153* 160* 172* 197* 140* 165* BC 04/21: Staph aureus Bcx 04/[address] Chest without contrast 04/27/2024 IMPRESSION 1. New small right pleural effusion. 2. Small to moderate left pleural effusion, increased from 04/18/2024. There are loculated components noted along the left major fissure and in the posterior right upper hemithorax towards the apex. 3. Postoperative changes from laminectomy at T8-T10. Assessment and Plan IMPRESSION : Principal Problem (Resolved): Bacteremia due to Staphylococcus Active Problems: Status post laminectomy Urinary retention Adjustment disorder Pleural effusion on left Resolved Problems: Constipation Epidural abscess Acute osteomyelitis (HCC) Acute hypoxemic respiratory failure (HCC) DIFFERENTIAL AND PLAN: 54 year old Ms. Ellis comes after being transferred from [facility] for further mangement - is being management for her bactermia, s/p laminectomy by neurosurgery. Staph bacteremia and osteomyelitis, diskitis, epidural abscess of thoracic spine S/p C3 to T1 and T7-T11 laminectomies for decompression and washout of epidural abscess ( 04/22/2024) Transaminitis MRI spine Dorsal lower lumbar spine epidural abscess. Ventral epidural abscess extending from skull base through upper lumbar spine. Brain MRI No evidence for intracranial extension of the abscess. Diffuse T1 hypointensity in the calvarium is nonspecific and may relate to red marrow conversion Similar to prior CT, enhancing mass at T3-T4 is observed, but presumably meningioma although nonspecific. intradural metastasis. severe spinal cord compression at T3-T4. moderate/severe spinal cord compression at T9-T10 and T8- T9. moderate cervical spinal canal narrowing.Partially loculated, enhancing left upper hemithorax pleural effusion, concerning for empyema and possibly direct extension of paraspinal infection. Nonspecific bone marrow enhancement at T10 vertebral body. Malignancy/metastasis not excluded. Partially calcified enhancing right adnexal mass partially visualized. BC 04/21: Staph aureus Bcx 04/23 No growth Intra op cultures 04/22 final results with no growth. no fungus, AFB TTE 04/21: no obvious vegetations RJ 04/25/24: No evidence of valvular vegetations or perivalvular abscess - telemetry monitoring - neurosurgical follow up, appreciate recommendations - KRISTAL drains removed by neurosurgery on 04/26/24. - Will need outpatient follow up with neurosurgery within 2 weeks for wound check. - ID following, continue with Cefazolin 2 grams Q8H. End date: 06/18/24. -Will require CBC with diff, CMP and CRP weekly. -ID follow up within 6 weeks. -MRI spine with IV contrast will be needed for follow up prior to completion of IV antibiotics. -neurocheck q4, fall, seizure precauations -PT/OT follow up ([facility] 12 04/23 ) -PICC line ordered to be placed with IR, procedure cancelled yesterday due to incoming emergent cases. Awaiting PICC line placement, she is otherwise ready for discharge to inpatient rehab facility. She has been accepted to [facility]. -Abdominal US ordered given transaminitis, sludge in gallbladder. No evidence of acute cholecystitis. Transaminitis improving, suspect secondary to sepsis on admission. Left sided Loculated Pleural Effusion Enhancing left upper hemithorax pleural effusion, concerning for empyema and possibly direct extension of paraspinal infection noted on OSH CT. Repeat CXR here with no discernable left pleural effusion. Repeat noncontrast CT chest 04/28/24 remarkable for small to moderate left pleural effusion with loculated components noted along left major fissure and posterior right hemithorax. -Thoracic surgery evaluated, no indications for drainage of small residual left pleural effusion. To follow clinically and consider repeat imaging as needed. Outpatient follow up clinics/labs/studies: -MRI spine showed enhancing mass at T3-T4 is observed, but presumably meningioma although nonspecific. Nonspecific bone marrow enhancement at T10 vertebral body. Partially calcified enhancing right adnexal mass partially visualized. PHARMACOLOGIC VTE PROPHYLAXIS: hEParin CODE STATUS: No Code EXPECTED DISCHARGE DATE : to be determined I spent a total of 47 minutes coordinating, documenting, and providing care for this patient excluding time spent in the performance of separately billed services. * Mery Kramer MD - 04/28/2024 7:26 AM EDT Images from the original note were not included. [facility] A460/A INTERVAL HISTORY: NAOE. Patient states she feels well this morning. She offers no complaints. Denies any chest pain, shortness of breath, abdominal pain, nausea or vomiting. Afebrile. Objective Physical Exam Most Recent Vital Signs: BP: 130 mmHg/85 mmHg (04/28/24633) Pulse: 97 (04/28/24633) Resp: 18 (04/28/24633) Temp: 37.28 C (04/28/24633) Temp Summary: Temp Min: 37 C (98.6 F) Max: 37.5 C (99.5 F) SpO2: 100 % (04/28/24633) O2 flow rate: 0 L/MIN (04/28/24633) Supplemental O2 Delivery: Room Air, None (04/28/24633) Constitutional: no apparent distress Eye: anicteric sclerae, extraocular movements intact Respiratory: Diminished breath sounds bilaterally. no wheezing. Cardiovascular: Regular rate and rhythm, no murmurs appreciated. Abdomen: soft, non-tender, non-distended. Normoactive bowel sounds Extremity/skin: No edema Neurology: AAOx3. Psychiatry : Hyperverbal, tangential thought process Urethral Catheter (Active) Number of days: 1 Peripheral Line Left Wrist 18 Gauge (Active) Number of days: 6 Peripheral Line Lower;Right Arm 22 Gauge (Active) Number of days: 4 STUDIES: Encounter Orders Labs and other studies reviewed with pertinent findings noted below: Chemistry Panel: Lab results within last 7 days (see chart for full results) Units 04/27/24 0733 04/26/24 0916 04/25/24 0634 04/24/24 1237 04/24/24 0348 04/23/24 0531 04/22/24 19304/22/24 1209 Sodium mmol/L 139 139 135 -- 139 142 139 141 Potassium mmol/L 3.8 3.8 3.7 -- 4.3 3.8 3.8 3.5 Chloride mmol/L 101 101 100 -- 105 105 100 101 CO2 mmol/L 25 28 25 -- 27 24 21* 24 BUN mg/dL 13 10 11 -- 13 16 14 14 Creatinine mg/dL 0.5 0.5 0.5 -- 0.5 0.5 0.5 0.5 Estimated Glomerular Filtration Rate mL/min >90 >90 >90 -- >90 >90 >90 >90 Glucose mg/dL 83 96 101 -- 128* 122* 131* 96 Calcium mg/dL 8.3* 8.4 7.9* -- 7.7* 8.1* 8.2* 8.4 Magnesium mg/dL 2.4 2.4 2.2 -- 2.2 2.5 -- -- Phosphorus mg/dL 2.4* 2.1* 2.2* 2.1* 1.4* 3.2 -- -- Anion Gap mmol/L 13 10 10 -- 7 13 18* 16* Complete Blood Count: Lab results within last 7 days (see chart for full results) Units 04/27/24 0733 04/26/24 0916 04/25/24 0634 04/24/2434704/23/2431 04/22/24193704/22/24 1210 WBC K/uL 18.90* 20.20* 23.48* 26.74* 29.10* 31.86* 31.02* HGB g/dL 8.8* 9.4* 8.8* 8.3* 8.9* 9.1* 11.3* HCT % 27.4* 28.7* 25.6* 24.6* 26.5* 28.3* 34.5* PLT K/uL 770* 752* 545* 449* 374 334 359 MCV fL 94.5 92.9 90.5 90.1 91.1 92.5 91.8 Liver Function Panel: Lab results within last 7 days (see chart for full results) Units 04/27/24 0733 04/26/24 0916 04/25/24 0634 04/24/24 0348 04/23/24 0531 04/22/24 1209 04/21/24 0749 Albumin g/dL 2.8* 2.7* 2.7* 2.5* 2.9* 2.6* 2.6* Protein g/dL 5.6* 5.6* 5.3* 4.8* 5.3* 5.8* 5.5* Bilirubin, Total mg/dL 0.5 0.6 0.7 0.7 0.8 1.1 1.6* Bilirubin, Direct mg/dL 0.2 0.2 0.3 0.3 0.4* -- -- AST U/L 49* 58* 64* 35 38* 58* 108* ALT U/L 34 48* 48* 38* 46* 67* 112* Alkaline Phosphatase U/L 160* 172* 197* 140* 165* 223* 227* BC 04/21: Staph aureus Bcx 04/[address] Chest without contrast 04/27/2024 IMPRESSION 1. New small right pleural effusion. 2. Small to moderate left pleural effusion, increased from 04/18/2024. There are loculated components noted along the left major fissure and in the posterior right upper hemithorax towards the apex. 3. Postoperative changes from laminectomy at T8-T10. Assessment and Plan IMPRESSION : Principal Problem: Bacteremia due to Staphylococcus Active Problems: Constipation Epidural abscess Acute osteomyelitis (HCC) Acute hypoxemic respiratory failure (HCC) Status post laminectomy Urinary retention Adjustment disorder Pleural effusion on left Resolved Problems: * No resolved hospital problems. * DIFFERENTIAL AND PLAN: 54 year old Ms. Ellis comes after being transferred from [facility] for further mangement - is being management for her bactermia, s/p laminectomy by neurosurgery. Staph bacteremia and osteomyelitis, diskitis, epidural abscess of thoracic spine S/p C3 to T1 and T7-T11 laminectomies for decompression and washout of epidural abscess ( 04/22/2024) Transaminitis MRI spine Dorsal lower lumbar spine epidural abscess. Ventral epidural abscess extending from skull base through upper lumbar spine. Brain MRI No evidence for intracranial extension of the abscess. Diffuse T1 hypointensity in the calvarium is nonspecific and may relate to red marrow conversion Similar to prior CT, enhancing mass at T3-T4 is observed, but presumably meningioma although nonspecific. intradural metastasis. severe spinal cord compression at T3-T4. moderate/severe spinal cord compression at T9-T10 and T8- T9. moderate cervical spinal canal narrowing.Partially loculated, enhancing left upper hemithorax pleural effusion, concerning for empyema and possibly direct extension of paraspinal infection. Nonspecific bone marrow enhancement at T10 vertebral body. Malignancy/metastasis not excluded. Partially calcified enhancing right adnexal mass partially visualized. BC 04/21: Staph aureus Bcx 04/23 NGTD Intra op cultures 04/22 final results with no growth. no fungus, AFB TTE 04/21: no obvious vegetations RJ 04/25/24: No evidence of valvular vegetations or perivalvular abscess - telemetry monitoring - neurosurgical follow up, appreciate recommendations - KRISTAL drains removed by neurosurgery on 04/26/24. - Will need outpatient follow up with neurosurgery within 2 weeks for wound check. - ID following, continue with Cefazolin 2 grams Q8H. End date: 06/18/24. -Will require CBC with diff, CMP and CRP weekly. -ID follow up within 6 weeks. -MRI spine with IV contrast will be needed for follow up prior to completion of IV antibiotics. -neurocheck q4, fall, seizure precauations -PT/OT follow up ([facility] 12 04/23 ) -PICC line ordered placed with IR, planned for today. She has been accepted to [facility] and plan for discharge tomorrow at 10AM. Patient is agreeable. -Abdominal US ordered given transaminitis, sludge in gallbladder. No evidence of acute cholecystitis. Transaminitis improving, suspect secondary to sepsis on admission. Left sided Loculated Pleural Effusion Enhancing left upper hemithorax pleural effusion, concerning for empyema and possibly direct extension of paraspinal infection noted on OSH CT. Repeat CXR here with no discernable left pleural effusion. Repeat noncontrast CT chest 04/28/24 remarkable for small to moderate left pleural effusion with loculated components noted along left major fissure and posterior right hemithorax. -Thoracic surgery evaluated, no indications for drainage of small residual left pleural effusion. To follow clinically and consider repeat imaging as needed. Outpatient follow up clinics/labs/studies: -MRI spine showed enhancing mass at T3-T4 is observed, but presumably meningioma although nonspecific. Nonspecific bone marrow enhancement at T10 vertebral body. Partially calcified enhancing right adnexal mass partially visualized. PHARMACOLOGIC VTE PROPHYLAXIS: hEParin CODE STATUS: No Code EXPECTED DISCHARGE DATE : to be determined I spent a total of 45 minutes coordinating, documenting, and providing care for this patient excluding time spent in the performance of separately billed services. * Mery Kramer MD - 04/27/2024 6:49 AM EDT Images from the original note were not included. [facility] A460/A INTERVAL HISTORY: No acute overnight events. Patient reports no complaints this morning, states she feels well. Reports she is not hungry but will eat if she is hungry once breakfast comes in. She denies any headache,shortness of breath, abdominal pain, nausea or vomiting. Objective Physical Exam Most Recent Vital Signs: BP: 136 mmHg/91 mmHg (04/27/241434) Pulse: 106 (04/27/24 143) Resp: 18 (04/27/241434) Temp: 37.5 C (04/27/241434) Temp Summary: Temp Min: 36.7 C (98.1 F) Max: 37.8 C (100 F) SpO2: 96 % (04/27/241434) O2 flow rate: 0 L/MIN (04/27/24 0800) Supplemental O2 Delivery: Room Air, None (04/27/241434) Constitutional: Chronically ill-appearing, lying in bed, NAD Eye: anicteric sclerae, EOMI Respiratory: Diminished breath sounds bilaterally. No wheezing or crackles noted Cardiovascular: Regular rate and rhythm, no murmurs appreciated. Abdomen: Soft nontender nondistended. Normoactive bowel sounds Extremity/skin: No LE edema Neurology: AAOx3 Psychiatry : Hyperverbal, tangential thought process Urethral Catheter (Active) Number of days: 0 Peripheral Line Left Wrist 18 Gauge (Active) Number of days: 5 Peripheral Line Lower;Right Arm 22 Gauge (Active) Number of days: 3 STUDIES: Encounter Orders Labs and other studies reviewed with pertinent findings noted below: Chemistry Panel: Lab results within last 7 days (see chart for full results) Units 04/27/24 0733 04/26/24 0916 04/25/24 0634 04/24/24 1237 04/24/2434704/23/2453004/22/24193704/22/24 1209 Sodium mmol/L 139 139 135 -- 139 142 139 141 Potassium mmol/L 3.8 3.8 3.7 -- 4.3 3.8 3.8 3.5 Chloride mmol/L 101 101 100 -- 105 105 100 101 CO2 mmol/L 25 28 25 -- 27 24 21* 24 BUN mg/dL 13 10 11 -- 13 16 14 14 Creatinine mg/dL 0.5 0.5 0.5 -- 0.5 0.5 0.5 0.5 Estimated Glomerular Filtration Rate mL/min >90 >90 >90 -- >90 >90 >90 >90 Glucose mg/dL 83 96 101 -- 128* 122* 131* 96 Calcium mg/dL 8.3* 8.4 7.9* -- 7.7* 8.1* 8.2* 8.4 Magnesium mg/dL 2.4 2.4 2.2 -- 2.2 2.5 -- -- Phosphorus mg/dL 2.4* 2.1* 2.2* 2.1* 1.4* 3.2 -- -- Anion Gap mmol/L 13 10 10 -- 7 13 18* 16* Complete Blood Count: Lab results within last 7 days (see chart for full results) Units 04/27/24 0733 04/26/24 0916 04/25/24 0634 04/24/2434704/23/2453004/22/24193704/22/24 1210 WBC K/uL 18.90* 20.20* 23.48* 26.74* 29.10* 31.86* 31.02* HGB g/dL 8.8* 9.4* 8.8* 8.3* 8.9* 9.1* 11.3* HCT % 27.4* 28.7* 25.6* 24.6* 26.5* 28.3* 34.5* PLT K/uL 770* 752* 545* 449* 374 334 359 MCV fL 94.5 92.9 90.5 90.1 91.1 92.5 91.8 Liver Function Panel: Lab results within last 7 days (see chart for full results) Units 04/27/24 0733 04/26/24 0916 04/25/24 0634 04/24/24 0348 04/23/24 0531 04/22/24 1209 04/21/24 0749 Albumin g/dL 2.8* 2.7* 2.7* 2.5* 2.9* 2.6* 2.6* Protein g/dL 5.6* 5.6* 5.3* 4.8* 5.3* 5.8* 5.5* Bilirubin, Total mg/dL 0.5 0.6 0.7 0.7 0.8 1.1 1.6* Bilirubin, Direct mg/dL 0.2 0.2 0.3 0.3 0.4* -- -- AST U/L 49* 58* 64* 35 38* 58* 108* ALT U/L 34 48* 48* 38* 46* 67* 112* Alkaline Phosphatase U/L 160* 172* 197* 140* 165* 223* 227* BC 04/21: Staph aureus Bcx 04/[address] Chest without contrast 04/27/2024 IMPRESSION 1. New small right pleural effusion. 2. Small to moderate left pleural effusion, increased from 04/18/2024. There are loculated components noted along the left major fissure and in the posterior right upper hemithorax towards the apex. 3. Postoperative changes from laminectomy at T8-T10. Assessment and Plan IMPRESSION : Principal Problem: Bacteremia due to Staphylococcus Active Problems: Constipation Epidural abscess Acute osteomyelitis (HCC) Acute hypoxemic respiratory failure (HCC) Status post laminectomy Urinary retention Adjustment disorder Resolved Problems: * No resolved hospital problems. * DIFFERENTIAL AND PLAN: 54 year old Ms. Ellis comes after being transferred from [facility] for further mangement - is being management for her bactermia, s/p laminectomy by neurosurgery. Staph bacteremia and osteomyelitis, diskitis, epidural abscess of thoracic spine S/p C3 to T1 and T7-T11 laminectomies for decompression and washout of epidural abscess ( 04/22/2024) Transaminitis MRI spine Dorsal lower lumbar spine epidural abscess. Ventral epidural abscess extending from skull base through upper lumbar spine. Brain MRI No evidence for intracranial extension of the abscess. Diffuse T1 hypointensity in the calvarium is nonspecific and may relate to red marrow conversion Similar to prior CT, enhancing mass at T3-T4 is observed, but presumably meningioma although nonspecific. intradural metastasis. severe spinal cord compression at T3-T4. moderate/severe spinal cord compression at T9-T10 and T8- T9. moderate cervical spinal canal narrowing.Partially loculated, enhancing left upper hemithorax pleural effusion, concerning for empyema and possibly direct extension of paraspinal infection. Nonspecific bone marrow enhancement at T10 vertebral body. Malignancy/metastasis not excluded. Partially calcified enhancing right adnexal mass partially visualized. BC 04/21: Staph aureus Bcx 04/23 NGTD Intra op cultures 04/22 final results with no growth. no fungus, AFB TTE 04/21: no obvious vegetations RJ 04/25/24: No evidence of valvular vegetations or perivalvular abscess - telemetry monitoring - neurosurgical follow up, appreciate recommendations - KRISTAL drains removed by neurosurgery on 04/26/24. - Will need outpatient follow up with neurosurgery within 2 weeks for wound check. - ID following, continue with Cefazolin 2 grams Q8H. End date: 06/18/24. -Will require CBC with diff, CMP and CRP weekly. -ID follow up within 6 weeks. -MRI spine with IV contrast will be needed for follow up prior to completion of IV antibiotics. -neurocheck q4, fall, seizure precauations -PT/OT follow up ([facility] 12 04/23 ) -PICC line ordered placed with IR, planned for this afternoon. -Abdominal US ordered given transaminitis, sludge in gallbladder. No evidence of acute cholecystitis. Transaminitis improving, suspect secondary to sepsis on admission. Left sided Loculated Pleural Effusion Enhancing left upper hemithorax pleural effusion, concerning for empyema and possibly direct extension of paraspinal infection noted on OSH CT. Repeat CXR here with no discernable left pleural effusion. Repeat noncontrast CT chest ordered today. Remarkable for small to moderate left pleural effusion with loculated components noted along left major fissure and posterior right hemithorax. -Thoracic surgery consulted for consideration of chest tube placement. Outpatient follow up clinics/labs/studies: -MRI spine showed enhancing mass at T3-T4 is observed, but presumably meningioma although nonspecific. Nonspecific bone marrow enhancement at T10 vertebral body. Partially calcified enhancing right adnexal mass partially visualized. PHARMACOLOGIC VTE PROPHYLAXIS: hEParin CODE STATUS: No Code EXPECTED DISCHARGE DATE : to be determined I spent a total of 50 minutes coordinating, documenting, and providing care for this patient excluding time spent in the performance of separately billed services. * Mery Kramer MD - 04/26/2024 7:04 AM EDT Images from the original note were not included. [facility] A460/A INTERVAL HISTORY: NAOE. Remained afebrile overnight. She offers no complaints. Denies any chest pain, shortness of breath, dizziness, headache, nausea or dizziness. Did not eat much breakfast this morning, states she is not hungry. Objective Physical Exam Most Recent Vital Signs: BP: 158 mmHg/88 mmHg (04/26/24 1440) Pulse: 111 (04/26/24 1440) Resp: 16 (04/26/24 1440) Temp: 36.78 C (04/26/24 1440) Temp Summary: Temp Min: 36.8 C (98.2 F) Max: 37.1 C (98.8 F) SpO2: 100 % (04/26/24 1440) O2 flow rate: 0 L/MIN (04/26/24 1015) Supplemental O2 Delivery: Room Air, None (04/26/24 144) Constitutional: NAD Eye: anicteric sclerae, EOMI Respiratory: Clear to auscultation bilaterally Cardiovascular: Regular rate and rhythm, no murmurs appreciated. Abdomen: Soft, nontender, nondistended Back/Musculoskeletal: KRISTAL drain in place. Extremity/skin: No pedal edema Neurology: AAOx3 Psychiatry : Tangential in speech Peripheral Line Left Wrist 18 Gauge (Active) Number of days: 4 Peripheral Line Lower;Right Arm 22 Gauge (Active) Number of days: 2 Drain Joe Caceres Mid Back (Active) Number of days: 4 STUDIES: Encounter Orders Labs and other studies reviewed with pertinent findings noted below: Chemistry Panel: Lab results within last 7 days (see chart for full results) Units 04/26/24 0916 04/25/24 0634 04/24/24 1237 04/24/24 0348 04/23/24 0531 04/22/24 1938 04/22/24 1209 04/21/24 0749 Sodium mmol/L 139 135 -- 139 142 139 141 140 Potassium mmol/L 3.8 3.7 -- 4.3 3.8 3.8 3.5 3.7 Chloride mmol/L 101 100 -- 105 105 100 101 103 CO2 mmol/L 28 25 -- 27 24 21* 24 26 BUN mg/dL 10 11 -- 13 16 14 14 16 Creatinine mg/dL 0.5 0.5 -- 0.5 0.5 0.5 0.5 0.6 Estimated Glomerular Filtration Rate mL/min >90 >90 -- >90 >90 >90 >90 >90 Glucose mg/dL 96 101 -- 128* 122* 131* 96 106 Calcium mg/dL 8.4 7.9* -- 7.7* 8.1* 8.2* 8.4 8.3* Magnesium mg/dL 2.4 2.2 -- 2.2 2.5 -- -- -- Phosphorus mg/dL 2.1* 2.2* 2.1* 1.4* 3.2 -- -- -- Anion Gap mmol/L 10 10 -- 7 13 18* 16* 11 Complete Blood Count: Lab results within last 7 days (see chart for full results) Units 04/26/24 0916 04/25/24 0634 04/24/24 0348 04/23/24 0531 04/22/24 1938 04/22/24 1210 04/21/24 0756 WBC K/uL 20.20* 23.48* 26.74* 29.10* 31.86* 31.02* 31.37* HGB g/dL 9.4* 8.8* 8.3* 8.9* 9.1* 11.3* 10.7* HCT % 28.7* 25.6* 24.6* 26.5* 28.3* 34.5* 32.1* PLT K/uL 752* 545* 449* 374 334 359 274 MCV fL 92.9 90.5 90.1 91.1 92.5 91.8 90.9 Liver Function Panel: Lab results within last 7 days (see chart for full results) Units 04/26/24 0916 04/25/24 0634 04/24/24 0348 04/23/24 0531 04/22/24 1209 04/21/24 0749 Albumin g/dL 2.7* 2.7* 2.5* 2.9* 2.6* 2.6* Protein g/dL 5.6* 5.3* 4.8* 5.3* 5.8* 5.5* Bilirubin, Total mg/dL 0.6 0.7 0.7 0.8 1.1 1.6* Bilirubin, Direct mg/dL 0.2 0.3 0.3 0.4* -- -- AST U/L 58* 64* 35 38* 58* 108* ALT U/L 48* 48* 38* 46* 67* 112* Alkaline Phosphatase U/L 172* 197* 140* 165* 223* 227* BC 04/21: Staph aureus Bcx 04/23 NGTD Assessment and Plan IMPRESSION : Principal Problem: Bacteremia due to Staphylococcus Active Problems: Constipation Epidural abscess Acute osteomyelitis (HCC) Acute hypoxemic respiratory failure (HCC) Status post laminectomy Urinary retention Adjustment disorder Resolved Problems: * No resolved hospital problems. * DIFFERENTIAL AND PLAN: 54 year old Ms. Ellis comes after being transferred from [facility] for further mangement - is being management for her bactermia, s/p laminectomy by neurosurgery. Staph bacteremia and osteomyelitis, diskitis, epidural abscess of thoracic spine S/p C3 to T1 and T7-T11 laminectomies for decompression and washout of epidural abscess ( 04/22/2024) Transaminitis MRI spine Dorsal lower lumbar spine epidural abscess. Ventral epidural abscess extending from skull base through upper lumbar spine. Brain MRI No evidence for intracranial extension of the abscess. Diffuse T1 hypointensity in the calvarium is nonspecific and may relate to red marrow conversion Similar to prior CT, enhancing mass at T3-T4 is observed, but presumably meningioma although nonspecific. intradural metastasis. severe spinal cord compression at T3-T4. moderate/severe spinal cord compression at T9-T10 and T8- T9. moderate cervical spinal canal narrowing.Partially loculated, enhancing left upper hemithorax pleural effusion, concerning for empyema and possibly direct extension of paraspinal infection. Nonspecific bone marrow enhancement at T10 vertebral body. Malignancy/metastasis not excluded. Partially calcified enhancing right adnexal mass partially visualized. BC 04/21: Staph aureus Bcx 04/23 NGTD Intra op cultures 04/22: negative so far, no fungus, AFB TTE 04/21: no obvious vegetations RJ 04/25/24: No evidence of valvular vegetations or perivalvular abscess - telemetry monitoring - neurosurgical follow up, appreciate recommendations - KRISTAL drains to be removed by neurosurgery today. - ID following, continue with Cefazolin 2 grams Q8H. End date: 06/18/24. -Will require CBC with diff, CMP and CRP weekly. -ID follow up within 6 weeks. -MRI spine with IV contrast will be needed for follow up prior to completion of IV antibiotics. - neurocheck q4, fall, seizure precauations - PT/OT follow up ([facility] 12 04/23 ) -PICC line ordered placed with IR -Abdominal US ordered given transaminitis, sludge in gallbladder. No evidence of acute cholecystitis. Enhancing left upper hemithorax pleural effusion, concerning for empyema and possibly direct extension of paraspinal infection noted on OSH CT. Repeat CXR here with no discernable left pleural effusion. Will need repeat chest imaging for monitoring with noncontrast CT chest. Will likely need this drained via chest tube. Outpatient follow up clinics/labs/studies: -MRI spine showed enhancing mass at T3-T4 is observed, but presumably meningioma although nonspecific. Nonspecific bone marrow enhancement at T10 vertebral body. Partially calcified enhancing right adnexal mass partially visualized. -Transaminitis PHARMACOLOGIC VTE PROPHYLAXIS: hEParin CODE STATUS: No Code EXPECTED DISCHARGE DATE : to be determined I spent a total of 50 minutes coordinating, documenting, and providing care for this patient excluding time spent in the performance of separately billed services. * Lindsey Hall RN - 04/25/2024 6:19 PM EDT PICC line insertion orders received. Pt was assessed, findings as follows: Left upper Cephalic: unable to identify Brachial: none visualized Basilic: CVR 50% for 3fr Right upper Cephalic: CVR 54% for 3 fr and bifurcates midway up arm Brachial: under muscle/nerve bundles Basilic: CVR 55% for 3fr Pt is not a candidate for bedside PICC placement. Recommend IR for line placement. Bedside nursing and Dr Diaz notified. * Modesta Diaz MD - 04/25/2024 7:43 AM EDT Images from the original note were not included. [facility] A462/B INTERVAL HISTORY: Patient is seen at the bedside. No complains. Patient is hemodynamically stable. To follow up : neurosurgery - s/p laminectomies, cardiology for RJ, PT/OT. No overnight events except fever. Objective Physical Exam Most Recent Vital Signs: BP: 133 mmHg/79 mmHg (04/25/24712) Pulse: 102 (04/25/24712) Resp: 16 (04/25/24712) Temp: 37 C (04/25/24712) Temp Summary: Temp Min: 36.6 C (97.8 F) Max: 38 C (100.4 F) SpO2: 97 % (04/25/24712) O2 flow rate: 0 L/MIN (04/25/24712) Supplemental O2 Delivery: Room Air, None (04/25/24712) Constitutional: Not in distress, comfortable ENT: L hearing < R, decreased passive ROM of neck Eye: pupils reactive, anicteric conjunctiva Respiratory: Bilateral equal air entry, no crackles, no wheezing Cardiovascular: S1,S2, no audible murmer, no visible pedal edema Abdomen: Soft, nontender, distended, regular bowel sounds. Back/Musculoskeletal: dressing +, KRISTAL drain + + peralta Extremity/skin: No pedal edema, skin intact Neurology: Alert and Oriented x3, grossly unremarkable motor and sensory exam, lying flat and neck ROM nil Able to move all the extremities Psychiatry : Tangential conversation and thought process Urethral Catheter Regular catheter (Active) Number of days: 1 Peripheral Line Lower;Left Arm 20 Gauge (Active) Number of days: 5 Peripheral Line Left Wrist 18 Gauge (Active) Number of days: 3 Peripheral Line Lower;Right Arm 22 Gauge (Active) Number of days: 1 Drain Joe Caceres Upper;Right Back (Active) Number of days: 3 Drain Joe Caceres Mid Back (Active) Number of days: 3 STUDIES: Encounter Orders Labs and other studies reviewed with pertinent findings noted below: Latest Reference Range & Units 04/22/24 19:38 04/23/24 05:31 04/24/24 03:48 04/25/24 06:34 WBC 4.00 - 10.80 K/uL 31.86 (H) 29.10 (H) 26.74 (H) 23.48 (H) RBC 3.85 - 5.15 M/uL 3.06 2.91 2.73 2.83 HGB 12.0 - 15.3 g/dL 9.1 (L) 8.9 (L) 8.3 (L) 8.8 (L) HCT 36.0 - 45.2 % 28.3 (L) 26.5 (L) 24.6 (L) 25.6 (L) MCV 81.5 - 97.5 fL 92.5 91.1 90.1 90.5 MCH 27.0 - 34.0 pg 29.7 30.6 30.4 31.1 MCHC 32.0 - 36.0 g/dL 32.2 33.6 33.7 34.4 RDW 11.5 - 15.5 % 15.3 15.1 14.9 15.4 PLT 140 - 400 K/uL 334 374 449 (H) 545 (H) MPV 6.6 - 11.1 fL 9.9 10.0 9.9 9.8 (H): Data is abnormally high (L): Data is abnormally low Latest Reference Range & Units 04/23/24 05:31 04/24/24 03:48 04/24/24 12:37 04/25/24 06:34 Sodium 135 - 146 mmol/L 142 139 135 Potassium 3.5 - 5.1 mmol/L 3.8 4.3 3.7 Chloride 98 - 107 mmol/L 105 105 100 CO2 22 - 32 mmol/L 24 27 25 BUN 6 - 20 mg/dL 16 13 11 Creatinine 0.5 - 1.0 mg/dL 0.5 0.5 0.5 Estimated Glomerular Filtration Rate >=60 mL/min >90 >90 >90 Anion Gap 7 - 15 mmol/L 13 7 10 Glucose 70 - 120 mg/dL 122 (H) 128 (H) 101 Calcium 8.4 - 10.2 mg/dL 8.1 (L) 7.7 (L) 7.9 (L) Calcium, Ionized 1.13 - 1.32 mmol/L 1.12 (L) 1.11 (L) 1.14 Magnesium 1.5 - 2.6 mg/dL 2.5 2.2 2.2 Phosphorus 2.5 - 4.8 mg/dL 3.2 1.4 (L) 2.1 (L) 2.2 (L) Protein 6.0 - 8.3 g/dL 5.3 (L) 4.8 (L) 5.3 (L) (H): Data is abnormally high (L): Data is abnormally low Latest Reference Range & Units 04/22/24 12:09 04/23/24 05:31 04/24/24 03:48 04/25/24 06:34 Albumin 3.8 - 5.0 g/dL 2.6 (L) 2.9 (L) 2.5 (L) 2.7 (L) AST 10 - 35 U/L 58 (H) 38 (H) 35 64 (H) ALT 10 - 35 U/L 67 (H) 46 (H) 38 (H) 48 (H) Alkaline Phosphatase 35 - 130 U/L 223 (H) 165 (H) 140 (H) 197 (H) Bilirubin, Total <=1.2 mg/dL 1.1 0.8 0.7 0.7 Bilirubin, Direct 0.0 - 0.3 mg/dL 0.4 (H) 0.3 0.3 (L): Data is abnormally low (H): Data is abnormally high Assessment and Plan IMPRESSION : Principal Problem: Bacteremia due to Staphylococcus Active Problems: Constipation Epidural abscess Acute osteomyelitis (HCC) Acute hypoxemic respiratory failure (HCC) Status post laminectomy Urinary retention Resolved Problems: * No resolved hospital problems. * DIFFERENTIAL AND PLAN: 54 year old Ms. Ellis comes after being transferred from [facility] for further mangement - is being management for her bactermia, s/p laminectomy by neurosurgery and Sepsis 2/2 Staph bacteremia and osteomyelitis, diskitis, epidural abscess of thoracic spine S/p t C3 to T1 and T7-T11 laminectomies for decompression and washout of epidural abscess ( 04/22/2024) Sinus tachycardia Transaminitis Leukocytosis (trending down 31k-->29k-->23k) Anemia (10.7-->8.9-->8.8) Hypocalcemia (8.2-->8.1-->7.9 ) Hypophosphatemia (2.2 - repleted) Abdominal distention, Constipation (last BM 04/24) MRI spine : Dorsal lower lumbar spine epidural abscess. Ventral epidural abscess extending from skull base through upper lumbar spine. Brain MRI No evidence for intracranial extension of the abscess. Diffuse T1 hypointensity in the calvarium is nonspecific and may relate to red marrow conversion Similar to prior CT,enhancing mass at T3-T4 is observed, but presumably meningioma although nonspecific. intradural metastasis. severe spinal cord compression at T3-T4. moderate/severe spinal cord compression at T9-T10 and T8- T9. moderate cervical spinal canal narrowing.Partially loculated, enhancing left upper hemithorax pleural effusion, concerning for empyema and possibly direct extension of paraspinal infection. Nonspecific bone marrow enhancement at T10 vertebral body. Malignancy/metastasis not excluded. Partially calcified enhancing right adnexal mass partially visualized. -MRSA negative -TTE -no vegetations Staphylococcus species noted on outside blood cultures per report, PCR not available. Source for her bacteremia is unclear as she has no known medical history and denies IV drug use. Sepsis has improved. Leukocytosis present on admission. Was initially tachycardic and intermittently febrile with temperature 100.4 on admission. Blood Culture 04/23 + s aureus x2 Culture during OR 04/22: negative so far, no fungus, AFB Serous looking fluid during OR RJ : pending - telemetry monitoring - neurosurgical follow up, appreciate recommendations - ID and culture (blood and tissue) follow up - repeat BC until negative - Iv cefazolin -->meropenem and vancomycin from 04/23 - follow up blood and tissue cultures - monitor and replete lytes - continue bowel regime - RJ pending - UA pending - monitor I/Os - neurocheck q4, fall, seizure precauations - PT/OT follow up ([facility] 12 04/23 ) - Gentle iv hydration as needed Acute hypoxic respiratory failure Tiny right-sided pleural effusion Loculated left upper hemithorax pleural effusion concerning for possible empyema On RA Tangential thought process Word salad Psychiatry consulted PHARMACOLOGIC VTE PROPHYLAXIS: hEParin CODE STATUS: No Code EXPECTED DISCHARGE DATE : to be determined I spent a total of 46 minutes coordinating, documenting, and providing care for this patient excluding time spent in the performance of separately billed services. * Modesta Diaz MD - 04/24/2024 7:36 AM EDT Images from the original note were not included. [facility] A462/B INTERVAL HISTORY: Patient is seen at the bedside, has details to tell about her hearing loss and how the whole situation is handled by her and overnight events of the pumps beeping. She is not upset, however tangential which ultimately leads to the answer. No complains, except the hearing condition details. Patient continues to lay flat and moves all the extremities, Unable to urinate, BS >500, will consider peralta recatheterization in pm if continues to retain. Patient is hemodynamically stable. To follow up : neurosurgery, I/Os, neurochecks, ID and blood and tissue cultures, RJ (likely tomorrow), NPO after 2400. No overnight events Objective Physical Exam Most Recent Vital Signs: BP: 131 mmHg/82 mmHg (04/24/24 1028) Pulse: 107 (04/24/24 1028) Resp: 18 (04/24/24 1028) Temp: 37.17 C (04/24/24 1028) Temp Summary: Temp Min: 36.4 C (97.5 F) Max: 38.3 C (100.9 F) SpO2: 98 % (04/24/24 1028) O2 flow rate: 0 L/MIN (04/24/24 0800) Supplemental O2 Delivery: Room Air, None (04/24/24 0800) Constitutional: Not in distress, comfortable ENT: No pharyngeal erythema, neck supple, L hearing < R Eye: pupils reactive, anicteric conjunctiva Respiratory: Bilateral equal air entry, no crackles, no wheezing Cardiovascular: S1,S2, no audible murmer, no visible pedal edema Abdomen: Soft, nontender, distended, regular bowel sounds. Back/Musculoskeletal: dressing +, KRISTAL drain + Extremity/skin: No pedal edema, skin intact Neurology: Alert and Oriented x3, grossly unremarkable motor and sensory exam, lying flat and neck ROM nil Able to move all the extremities Peripheral Line Lower;Left Arm 20 Gauge (Active) Number of days: 4 Peripheral Line Left Wrist 18 Gauge (Active) Number of days: 2 Peripheral Line Lower;Right Arm 22 Gauge (Active) Number of days: 0 Drain Joe Caceres Upper;Right Back (Active) Number of days: 2 Drain Joe Caceres Upper;Left Back (Active) Number of days: 2 Drain Joe Caceres Mid Back (Active) Number of days: 2 STUDIES: Encounter Orders Labs and other studies reviewed with pertinent findings noted below: Latest Reference Range & Units 04/21/24 07:49 04/22/24 12:09 04/23/24 05:31 04/24/24 03:48 Albumin 3.8 - 5.0 g/dL 2.6 (L) 2.6 (L) 2.9 (L) 2.5 (L) AST 10 - 35 U/L 108 (H) 58 (H) 38 (H) 35 ALT 10 - 35 U/L 112 (H) 67 (H) 46 (H) 38 (H) Alkaline Phosphatase 35 - 130 U/L 227 (H) 223 (H) 165 (H) 140 (H) Bilirubin, Total <=1.2 mg/dL 1.6 (H) 1.1 0.8 0.7 Bilirubin, Direct 0.0 - 0.3 mg/dL 0.4 (H) 0.3 (L): Data is abnormally low (H): Data is abnormally high Latest Reference Range & Units 04/21/24 07:56 04/22/24 12:10 04/22/24 19:38 04/23/24 05:31 04/24/24 03:48 WBC 4.00 - 10.80 K/uL 31.37 (H) 31.02 (H) 31.86 (H) 29.10 (H) 26.74 (H) RBC 3.85 - 5.15 M/uL 3.53 3.76 3.06 2.91 2.73 HGB 12.0 - 15.3 g/dL 10.7 (L) 11.3 (L) 9.1 (L) 8.9 (L) 8.3 (L) HCT 36.0 - 45.2 % 32.1 (L) 34.5 (L) 28.3 (L) 26.5 (L) 24.6 (L) MCV 81.5 - 97.5 fL 90.9 91.8 92.5 91.1 90.1 MCH 27.0 - 34.0 pg 30.3 30.1 29.7 30.6 30.4 MCHC 32.0 - 36.0 g/dL 33.3 32.8 32.2 33.6 33.7 RDW 11.5 - 15.5 % 15.4 15.1 15.3 15.1 14.9 PLT 140 - 400 K/uL 274 359 334 374 449 (H) MPV 6.6 - 11.1 fL 10.3 10.1 9.9 10.0 9.9 (H): Data is abnormally high (L): Data is abnormally low Xray abdomen : postoperative ileus. EF 55% 04/21 Assessment and Plan IMPRESSION : Principal Problem: Bacteremia due to Staphylococcus Active Problems: Constipation Epidural abscess Acute osteomyelitis (HCC) Acute hypoxemic respiratory failure (HCC) Status post laminectomy Resolved Problems: * No resolved hospital problems. * DIFFERENTIAL AND PLAN: 54 year old Ms. Ellis comes after being transferred from [facility] for further mangement - is being management for her bactermia, s/p laminectomy by neurosurgery and Sepsis 2/2 Staph bacteremia and osteomyelitis, diskitis, epidural abscess of thoracic spine S/p t C3 to T1 and T7-T11 laminectomies for decompression and washout of epidural abscess ( 04/22/2024) Transaminitis (trending down) Leukocytosis (trending down 31-->29k) Anemia (10.7-->8.9) Hypocalcemia (8.2-->8.1 , IoCa 1.12) Hyponatremia- resolved (142) Loculated left upper hemithorax pleural effusion concerning for possible empyema Abdominal distention, Constipation Sinus tachycardia MRI : Dorsal lower lumbar spine epidural abscess. Ventral epidural abscess extending from skull base through upper lumbar spine. Brain MRI No evidence for intracranial extension of the abscess. Diffuse T1 hypointensity in the calvarium is nonspecific and may relate to red marrow conversion Similar to prior CT,enhancing mass at T3-T4 is observed, but presumably meningioma although nonspecific. intradural metastasis. severe spinal cord compression at T3-T4. moderate/severe spinal cord compression at T9-T10 and T8- T9. moderate cervical spinal canal narrowing.Partially loculated, enhancing left upper hemithorax pleural effusion, concerning for empyema and possibly direct extension of paraspinal infection. Nonspecific bone marrow enhancement at T10 vertebral body. Malignancy/metastasis not excluded. Partially calcified enhancing right adnexal mass partially visualized. -MRSA negative -TTE -no vegetations Staphylococcus species noted on outside blood cultures per report, PCR not available. Source for her bacteremia is unclear as she has no known medical history and denies IV drug use. Sepsis has improved. Leukocytosis present on admission. Was initially tachycardic and intermittently febrile with temperature 100.4 on admission. Blood Culture 04/23 + s aureus x2 Culture during OR 04/22: negative so far, no fungus, AFB Serous looking fluid during OR - telemetry monitoring - neurosurgical follow up, appreciate recommendations - ID and culture (blood and tissue) follow up - repeat BC until negative - Iv cefazolin -->meropenem and vancomycin from 04/23 - follow up blood and tissue cultures - monitor and replete lytes - continue bowel regime - RJ - monitor I/Os - neurocheck q4, fall, seizure precauations - PT/OT follow up ([facility] 12 04/23 ) -Gentle iv hydration as needed Acute hypoxic respiratory failure Tiny right-sided pleural effusion On RA PHARMACOLOGIC VTE PROPHYLAXIS: hEParin CODE STATUS: No Code EXPECTED DISCHARGE DATE: 04/26/2024 I spent a total of 57 minutes coordinating, documenting, and providing care for this patient excluding time spent in the performance of separately billed services. * Camila Fulton [facility] - 04/24/2024 7:04 AM EDT PHARMACY PHARMACOKINETIC CONSULT [facility] [address] Name: Yakov Keller [place] [facility] [place]462[place]B Date: 04/24/2024 Time: 7:04 AM Requesting Service: Med G Bacteria being treated: MSSA Source of infection: Epidural Abscesses, 4/4 blood cultures positive Medication(s) being managed: Vancomycin Pharmacokinetic calculations will be performed utilizing ALLGOOB software. Lab information: Lab Results Component Value Date/Time WBC 26.74 (H) 04/24/2024 03:48 AM WBC 29.10 (H) 04/23/2024 05:31 AM WBC 31.86 (H) 04/22/2024 07:38 PM WBC 31.02 (H) 04/22/2024 12:10 PM WBC 31.37 (H) 04/21/2024 07:56 AM Lab Results Component Value Date/Time BUN 13 04/24/2024 03:48 AM BUN 16 04/23/2024 05:31 AM BUN 14 04/22/2024 07:38 PM BUN 14 04/22/2024 12:09 PM BUN 16 04/21/2024 07:49 AM Lab Results Component Value Date/Time CREAT 0.5 04/24/2024 03:48 AM CREAT 0.5 04/23/2024 05:31 AM CREAT 0.5 04/22/2024 07:38 PM CREAT 0.5 04/22/2024 12:09 PM CREAT 0.6 04/21/2024 07:49 AM ANTIMICROBIALS GIVEN (last 28 hours) Date/Time Action Medication Dose Rate 04/24/24 0149 New Bag meropenem (MERREM) 2000 mg in 100 ml ivpb three hour infusion 2,000 mg 35 mL/hr 04/24/24 0010 New Bag Vancomycin (Vancocin) 1,250 mg in NSS 250 mL ivpb 1,250 mg 178.33 mL/hr 04/23/24 1850 New Bag meropenem (MERREM) 2000 mg in 100 ml ivpb three hour infusion 2,000 mg 35 mL/hr 04/23/24 1648 New Bag Vancomycin (Vancocin) 1,250 mg in NSS 250 mL ivpb 1,250 mg 178.33 mL/hr 04/23/24 1111 New Bag meropenem (MERREM) 2000 mg in 100 ml ivpb three hour infusion 2,000 mg 35 mL/hr 04/23/24 0822 New Bag Vancomycin (Vancocin) 1,250 mg in NSS 250 mL ivpb 1,250 mg 178.33 mL/hr Wt Readings from Last 1 Encounters: 04/24/24 74.8 kg (164 lb 14.5 oz) Levels to date: Lab Results Component Value Date/Time VANCOPEAK 25.3 (L) 04/24/2024 03:48 AM VANCORANDOM 10.7 04/23/2024 05:31 AM Impression: Yakov Keller is a/an 54 year old female receiving vancomycin therapy. The pharmacokinetic target for therapy is AUC24,SS (range) 400-600mg/L.hr Assessment and Plan: Analysis of the most recent level(s) using EnmotusRX gives the following patient-specific pharmacokinetic parameters: CL: 6.32 L/hr V: 51.3 L T1/2: 5.79 hours Using these values, the current regimen of Vancomycin 1250 mg IV every 8 hours, which is predicted to result in a steady-state trough of 15.4 mg/L and AUC24 of 550 mg/L.hr. At this time we recommend a regimen of 1250 mg IV every 8 hours, which is predicted to result in a steady-state trough of 16.1mg/L and AUC24 of 586 mg/L.hr. Obtain next vancomycin level 9/6 am labs. Pharmacy will continue to follow and dose as appropriate by renal function, culture results, infectious disease input, and overall clinical status. Contact the Pharmacy at extension [phone] if there are any questions. Camila Fulton RPh * Modesta Diaz MD - 04/23/2024 2:02 PM EDT TRANSFER RECEIVING NOTE - Hospital Medicine [address] [address] Name: Yakov Keller Current Location: [address] HANDOFF COMMUNICATION: Sending patient service: [facility] Accepting service: General Internal Medicine Sending attending aware of patient and transfer: yes Receiving attending aware of patient and transfer: yes Name of receiving attending provider: Modesta Diaz MD Patient care is being assumed by receiving service: when patient arrives in receiving unit Reason for transfer: Stabilized in ICU. Transfer for further care at medsur unit. SUBJECTIVE: Pt is seen and examined while transferring out of ICU. Pt is hemodynamically stable. Currently hemodynamically stable/ denies any complains. As per ICU transfer team "To follow up with neurosurgery, antibiotics broadened to meropenem and vancomycin, DVT px to starttonight 10 pm, KRISTAL drain output to be followed, follow up cultures (collected on OR) and RJ (ordered by ICU)" TRANSFER MEDICATION RECONCILIATION COMPLETED? yes OBJECTIVE: Most Recent Vital Signs: BP: 127 mmHg/81 mmHg (04/23/24 1337) Pulse: 114 (04/23/24 133) Resp: 16 (04/23/241336) Temp: 36.78 C (04/23/241336) Temp Summary: Temp Min: 36 C (96.8 F) Max: 38.2 C (100.8 F) SpO2: 97 % (04/23/24 1200) O2 flow rate: 2 L/MIN (04/23/24 0000) Supplemental O2 Delivery: Room Air, None (04/23/241336) Vital Signs Last 24 Hours: Systolic BP: Most Recent Systolic BP Av.2 mmHg Min: 100 mmHg Max: 156 mmHg Temperature: Most Recent Temperature Av.6 C Min: 36 C Max: 38.22 C Pulse: Pulse Av.3 Min: 93 Max: 122 Respirations: Resp Av Min: 12 Max: 28 SpO2: SpO2 Av.9 % Min: 90 % Max: 100 % Intake/Output Summary (Last 24 hours) at 04/23/2024 1402 Last data filed at 04/23/2024 1200 Gross per 24 hour Intake 3053.21 ml Output 1892 ml Net 1161.21 ml Patient Vitals for the past 72 hrs: Weight 04/23/24 0600 83.9 kg (184 lb 15.5 oz) 04/22/24 1904 84 kg (185 lb 3 oz) 04/20/24 1721 68 kg (150 lb) Constitutional: Not in distress, comfortable ENT: No pharyngeal erythema, neck supple Eye: pupils reactive, anicteric conjunctiva Respiratory: Bilateral equal air entry, no crackles, no wheezing Cardiovascular: S1,S2, no audible murmer, no visible pedal edema Abdomen: Soft, nontender, distended, regular bowel sounds. Back/Musculoskeletal: dressing +, KRISTAL drain + Extremity/skin: No pedal edema, skin intact Neurology: Alert and Oriented x3, grossly unremarkable motor and sensory exam. IMPRESSION and PLAN: Principal Problem: Bacteremia due to Staphylococcus (POA: Yes) Active Problems: Constipation (POA: Yes) Epidural abscess (POA: Yes) Acute osteomyelitis (HCC) (POA: Yes) Acute hypoxemic respiratory failure (HCC) (POA: Unknown) Resolved Problems: * No resolved hospital problems. * POA = Present On Admission 54 year old female with no significant past medical history, Medical Problems currently managed: Sepsis 2/2 Staph bacteremia and osteomyelitis, diskitis, epidural abscess of thoracic spine S/p t C3 to T1 and T7-T11 laminectomies for decompression and washout of epidural abscess ( 04/22/2024) Transaminitis (trending down) Leukocytosis (trending down 31-->29k) Anemia (10.7-->8.9) Hypocalcemia (8.2-->8.1 , IoCa 1.12) Hyponatremia- resolved (142) Loculated left upper hemithorax pleural effusion concerning for possible empyema Abdominal distention, Constipation Sinus tachycardia MRI : Dorsal lower lumbar spine epidural abscess. Ventral epidural abscess extending from skull base through upper lumbar spine. Brain MRI No evidence for intracranial extension of the abscess. Diffuse T1 hypointensity in the calvarium is nonspecific and may relate to red marrow conversion Similar to prior CT, there is an enhancing mass at T3-T4 is observed, but presumably meningioma although nonspecific. intradural metastasis. severe spinal cord compression at T3-T4. moderate/severe spinal cord compression at T9-T10 and T8-T9. moderate cervical spinal canal narrowing.Partially loculated, enhancing left upper hemithorax pleural effusion, concerning for empyema and possibly direct extension of paraspinal infection. Nonspecific bone marrow enhancement at T10 vertebral body. Malignancy/metastasis not excluded. Partially calcified enhancing right adnexal mass partially visualized. -MRSA negative -TTE -no vegetations Staphylococcus species noted on outside blood cultures per report, PCR not available. Source for her bacteremia is unclear as she has no known medical history and denies IV drug use. Sepsis has improved. Leukocytosis present on admission. Was initially tachycardic and intermittently febrile with temperature 100.4 on admission. Blood Culture 04/23 + s aureus x2 Culture during OR 8/31: negative so far, no fungus, AFB -telemetry monitoring - neurosurgical follow up, appreciate recommendations -ID follow up - repeat BC until negative - Iv cefazolin -->meropenem and vancomycin to broaden coverage - will start bowel regime for now - follow up blood and tissue cultures - monitor and replete lytes - repeat EKG - RJ - monitor I/Os - TSH - neurocheck q4, fall, seizure precauations - PT/OT evaluation -Gentle iv hydration Acute hypoxic respiratory failure Tiny right-sided pleural effusion On RA Things to follow: ID follow up, follow up and repeat blood cultures and cultures taken during the OR RJ Follow up Neurosurgery KRISTAL drain PT/OT evaluation Neuro checks q4 Maintain hemodynamic stability Please follow up [facility] notes for additional hospital course information. * ToOneal DO - 04/23/2024 10:01 AM EDT BRIEF TRANSFER OUT OF INTENSIVE CARE NOTE - CRITICAL CARE MEDICINE [facility] [id number] Name: Yakov Keller Current Location: [address] Primary ICU Problem: Large spinal ventral epidural abscess now status post C3 to T1 and T7-T11 laminectomies for decompression and washout of epidural abscess by Dr. Montero on 04/22/2024 who was admitted to the ICU for post-op management. ICU Course/Complications: She is a 54 year old female with limited to no known reported past medical history who was admittedto ICU for post op management for a large ventral epidural spinal abscess from skull base to upper lumbar spine and torso epidural spinal abscess in the lower lumbar spine as well as MSSA bacteremia that is s/p source control, decompression, and laminectomy of cervical and thoracic spine by NSNAVJOT on04/22/2024. Since being admitted to the ICU, patient has been hemodynamically stable without requiring pressors. After her surgery, neurosurgery recommended broadening the IV antibiotics until the OR cultures return and so IV meropenem and vancomycin was started and IV Ancef was discontinued after his surgery.Additionally, a new set of blood culture were obtained and a transesophageal echocardiogram was orde red. She also had her Peralta and arterial line that was used during operation be removed. Discussed with Neurosurgery this morning who stated that the patient is okay to start chemical DVT prophylaxistonight at 10pm and that she appears stable from their point of view. At this time, patient is a safe downgraded from the ICU with Q4 neurochecks to the medicine team. Delirium: No Mechanical Ventilation: Intubated: No Difficult airway: not applicable Major Procedures: -Large spinal ventral epidural abscess now status post C3 to T1 and T7-T11 laminectomies for decompression and washout of epidural abscess by Dr. Montero on 04/22/2024 Medications: Medication changes: -Stopped IV ancef -Broaden to IV meropenem and vancomycin Pending ICU Issues: Active issues currently being followed or monitored at time of transfer out of ICU: -MSSA Bacteremia (new set of blood cultures obtained an RJ ordered) -Loculated left side pleural effusion -KRISTAL drain output -Leukocytosis trend -Transaminitis, improving (hepatitis panel negative) Consults following or that need to be accomplished: -Transesophageal echocardiogram -F/u with repeat blood cultures every 48 hours until cleared -F/u with Infectious Disease recommendations Central Lines/Chest Tubes/PICC/IUBC: Remaining in place: No Family Meeting/Goals of Care: No Code Family meeting summary/decision makers: -Rebecca Sullivan (friend) Follow Up: Outpatient follow up clinics/labs/studies: -MRI spine showed enhancing mass at T3-T4 is observed, but presumably meningioma although nonspecific. Nonspecific bone marrow enhancement at T10 vertebral body. Partially calcified enhancing right adnexal mass partially visualized. Incidental findings that need to be addressed: -Enhancing left upper hemithorax pleural effusion, concerning for empyema and possibly direct extension of paraspinal infection. -Transaminitis -HIV negative * Claudia Bronson RPh - 04/23/2024 7:55 AM EDT PHARMACY PHARMACOKINETIC CONSULT [facility] [address] Name: Yakov Keller [place] [facility] A447/A Date: 04/23/2024 Time: 7:55 AM Requesting Service: Critical Care Blue Bacteria being treated: MSSA Source of infection: Epidural abscesses, 4/4 blood cultures positive Medication(s) being managed: Vancomycin Pharmacokinetic calculations will be performed utilizing ALLGOOB software. Lab information: Lab Results Component Value Date/Time WBC 29.10 (H) 04/23/2024 05:31 AM WBC 31.86 (H) 04/22/2024 07:38 PM WBC 31.02 (H) 04/22/2024 12:10 PM WBC 31.37 (H) 04/21/2024 07:56 AM Lab Results Component Value Date/Time BUN 16 04/23/2024 05:31 AM BUN 14 04/22/2024 07:38 PM BUN 14 04/22/2024 12:09 PM BUN 16 04/21/2024 07:49 AM BUN 16 04/20/2024 09:27 PM Lab Results Component Value Date/Time CREAT 0.5 04/23/2024 05:31 AM CREAT 0.5 04/22/2024 07:38 PM CREAT 0.5 04/22/2024 12:09 PM CREAT 0.6 04/21/2024 07:49 AM CREAT 0.6 04/20/2024 09:27 PM ANTIMICROBIALS GIVEN (last 28 hours) Date/Time Action Medication Dose Rate 04/23/24 0208 New Bag meropenem (MERREM) 2000 mg in 100 ml ivpb three hour infusion 2,000 mg 35 mL/hr 04/22/24 2109 New Bag Vancomycin (Vancocin) 1,750 mg in NSS 500 mL ivpb 1,750 mg 263.75 mL/hr 04/22/242023 New Bag Meropenem (Merrem) 2,000 mg in NSS 100 mL ivpb 2,000 mg 210 mL/hr 04/22/24 1855 Given ceFAZolin 1 g in sodium chloride IR 0.9 % 1,000 mL irrigation 1,000 mL 04/22/24 1745 Given ceFAZolin (Ancef) inj 2 g 04/22/24 1241 New Bag ceFAZolin in dextrose (Ancef) ivpb 2 g 2 g 100 mL/hr 04/22/24 0505 New Bag ceFAZolin in dextrose (Ancef) ivpb 2 g 2 g 100 mL/hr Wt Readings from Last 1 Encounters: 04/23/24 83.9 kg (184 lb 15.5 oz) Levels to date: Lab Results Component Value Date/Time CHERELLE 10.7 04/23/2024 05:31 AM Impression: Yakov Keller is a/an 54 year old female receiving vancomycin therapy. The pharmacokinetic target for therapy is AUC24,SS (range) 400-600mg/L.hr Assessment: Analysis of the most recent level(s) using EnmotusRX gives the following patient-specific pharmacokinetic parameters: CL: 6.59 L/hr V: 57.4 L T1/2: 8.67 hours Using these values, the current regimen of Vancomycin 1750 mg IV every 36 hours is predicted to result in a steady-state trough of 1.8 mg/L and AUC24 of 177 mg/L.hr. At this time we recommend a regimen of 1250 mg IV every 8 hours, which is predicted to result in a steady-state trough of 15.4 mg/L and AUC24 of 550 mg/L.hr. Recommendations: - Vancomycin 1250 mg IV every 8 hours - Obtain Vancomycin peak 04/24 at 0400 - Continue to monitor serum creatinine Pharmacy will continue to follow and dose as appropriate by renal function, culture results, infectious disease input, and overall clinical status. Contact the Pharmacy at extension [phone] if there are any questions. Claudia Bronson RPh * ToOneal DO - 04/23/2024 6:52 AM EDT Images from the original note were not included. CCM - PROGRESS NOTE [address] [id number] Name: Yakov Keller [place] [facility] [place]447[place] Date: 04/23/2024 Time: 6:53 AM DATE OF ADMISSION: 04/20/2024 Hospital Day: 3 PATIENT DESCRIPTION: She is a 54 year old female with limited to no known reported past medical history who was admittedto ICU for post op management for a large ventral epidural spinal abscess from skull base to upper lumbar spine and torso epidural spinal abscess in the lower lumbar spine as well as MSSA bacteremia that is s/p source control, decompression, and laminectomy of cervical and thoracic spine by MAEGAN on04/22/2024. SUBJECTIVE: NAEON. IV antibiotics were broadened to IV meropenem and vancomycin until the OR pathology results return per neurosurgery recs. Patient is seen earlier this morning where she maintains a relatively upbeat attitude. States that she still maintains good sensation throughout her upper and lower body and that she is able to move everything without issue. Still having some output from the KRISTAL drains. Obtain a new set of blood cultures and ordered for a transesophageal echocardiogram. Arterial line and Peralta were removed. Plan to downgrade from ICU. CONSTITUTIONAL DATA: BP: 127 mmHg/74 mmHg (04/23/24599) Pulse: 100 (04/23/24599) Resp: 18 (04/23/24599) Temp: 36.11 C (04/23/24599) Temp Summary: Temp Min: 36.1 C (97 F) Max: 38.2 C (100.8 F) SpO2: 95 % (04/23/24599) O2 flow rate: 2 L/MIN (04/23/24 0000) Supplemental O2 Delivery: Room Air, None (04/23/24599) Intake/Output Summary (Last 24 hours) at 04/23/2024 0653 Last data filed at 04/23/2024 0400 Gross per 24 hour Intake 2526 ml Output 1775 ml Net 751 ml PHYSICAL EXAM: General: Well developed, well nourished, pleasant and upbeat Head: Normocephalic, atraumatic. Eyes: PERRL, EOM intact, conjunctiva and sclera clear, without nystagmus, lids normal. 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 No significant changes she reports. No trauma to the site. Mouth: MMM. Neck: No JVD, trachea midline. Chest: Grossly normal appearance. Lungs: Clear bilaterally with normal respiratory effort. Heart: Regular rate and rhythm, normal S1, S2, no murmurs, no rubs, no gallops, no clicks. Abdomen: Soft, non-tender, slightly distended, normal bowel sounds. Extremities: No clubbing, no cyanosis, no edema. Neuro: No focal deficits, cranial nerves II-XII grossly intact, normal sensation in upper and lowerextremities. Grossly moves all extremities without issues Pulses: Pulses normal in all extremities. Skin: Intact without significant lesions, or rashes. Warm, well perfused. LABORATORY VALUES: reviewed Lab results within last 7 days (see chart for full results) Units 04/23/24 0531 04/22/24 1938 04/22/24 1210 HGB g/dL 8.9* 9.1* 11.3* HCT % 26.5* 28.3* 34.5* WBC K/uL 29.10* 31.86* 31.02* PLT K/uL 374 334 359 Lab results within last 7 days (see chart for full results) Units 04/23/24 0531 04/22/24 1938 04/22/24 1209 Sodium mmol/L 142 139 141 Potassium mmol/L 3.8 3.8 3.5 Chloride mmol/L 105 100 101 CO2 mmol/L 24 21* 24 BUN mg/dL 16 14 14 Creatinine mg/dL 0.5 0.5 0.5 Lab results within last 7 days (see chart for full results) Units 04/23/24 0531 04/22/24 1209 04/21/24 0749 Protein g/dL 5.3* 5.8* 5.5* Bilirubin, Total mg/dL 0.8 1.1 1.6* Alkaline Phosphatase U/L 165* 223* 227* AST U/L 38* 58* 108* ALT U/L 46* 67* 112* No results in the last 7 days - inpatent use only CULTURES: Recent Cultures (2 Weeks) 04/22/2024 04/22/2024 04/21/2024 04/21/2024 6:04 PM 5:51 PM 7:55 AM 7:49 AM FUNGUS STAIN DESCRIPTION No yeast or hyphae seen. No yeast or hyphae seen. -- -- STAIN DESCRIPTION No polymorphonuclear leukocytes seen No polymorphonuclear leukocytes seen Aerobicbottle Gram positive cocci in clusters Aerobic bottle Gram positive cocci in clusters No squamous epithelial cells seen No squamous epithelial cells seen No organisms seen No organisms seen BLOOD CULTURE GROWTH -- -- Pending Pending RADIOGRAPHIC STUDIES: reviewed MRI BRAIN W WO CONTRAST Result Date: 04/22/2024 IMPRESSION 1. No evidence for intracranial extension of the abscess. 2. Diffuse T1 hypointensity inthe calvarium is nonspecific and may relate to red marrow conversion. Correlate with CBC. XR ABDOMEN 1 VIEW Result Date: 04/20/2024 IMPRESSION Gas-filled loops of small and large bowel throughout the abdomen. No appreciable formed colonic stool or discrete bowel obstruction. XR CHEST 1 VIEW Result Date: 04/20/2024 IMPRESSION Tiny right pleural effusion with right basilar atelectasis. No discernible left-sided pleural effusion is seen on this examination. 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 Appreciate recs F/u on OR cultures No additional MAP goals KRISTAL drain in place and to self-suction Board spectrum abx No indication for follow up imaging Can start VTE chemical ppx tonight around 10pm Analgesia: PRN tylenol 650mg Sedation: melatonin PRN PULMONARY / RESPIRATORY: #Left side loculated pleural effusion Chest PT/flutter/incentive SpO2 goal >92% CARDIAC / VASCULAR: No active issues >04/21 TTE showed no vegetations. EF of 55% MAP goal >65 with PRN phenylephrine Avoid antihypertensive medications Arterial line removed GI / HEPATOBILIARY: #Transaminitits, downtrending #Constipation #abdominal distention, mild >KUB negative for bowel obstruction or fecal impaction >Hepatitis panel negative >HIV negative Continue to trend LFTs Diet: Regular diet GI Ppx: Not indicated Bowel Regimen: Miralax daily and Senokot BID, PRN dulcolax suppository, Last BM: 04/23 RENAL / METABOLIC / FLUIDS: #Hyponatremia, resolved Peralta removed Monitor IOs/Electrolytes, replete as needed INFECTIOUS DISEASES: #Sepsis, multifactorial #Epidural abscess from skull base to upper lumbar region #Staph bacteremia #Osteomyelitis #Leukocytosis, slight downtrending #Loculated left upper hemithorax pleural effusion concerning for possible empyema >MRSA nares negative ID consulted. Appreciate recs Ordered for RJ as patient had a negative TTE Repeat Blood cultures every 48 hours until bacteremia resolves Broad spec GERMAN T[employer]OR dosing of Vanc/Caden until intra op cultures return (04/22 - ) ID recommended IV ancef but NSGY was concerned that final reports of bacteria are not available andgiven the spinal abscess, recommended broading IV abx Trend WBC and hgb daily Monitor for fevers ENDOCRINE: No active issues CCM BGL goals of 140-180 mg/dl HEMATOLOGIC: #Anemia Trend hgb DVT PPX: SCDs. Start heparin 5000mg q8 hrs subq today at 10pm MUSCULOSLETAL / DERM: No active issues PT/OT consulted DEVICES: Peripheral Line Lower;Left Arm 20 Gauge (Active) Number of days: 3 Peripheral Line Left Wrist 18 Gauge (Active) Number of days: 1 Drain Joe Caceres Upper;Right Back (Active) Number of days: 1 Drain Joe Caceres Upper;Left Back (Active) Number of days: 1 Drain Joe Caceres Mid Back (Active) Number of days: 1 Arterial Line Right Radial (Active) Number of days: 1 GLOBAL ISSUES: DVT Prophylaxis: pneumatic compression devices alone due to chemoprophylaxis contraindication. Willstart subQ heparin today at 10pm Stress Ulcer Prophylaxis: not indicated Glycemic Control: controlled - not in protocol Central Line Necessity Reviewed: N/A Peralta: N/A Disposition: transfer to floor Patient's decisional capacity: has capacity to make decisions Communication with Patient/Family: No meeting held. Goals of Care: stabilize hemodynamic status Care plan discussed with attending physician MD Oneal Ruby To, DO PGY-1 04/23/2024 6:53 AM Please excuse any unintentional grammatical and syntactical errors as voice dictation was used to create this note. This should not deter from the intended meaning and clinical context. Please reach out should any clarification be needed. Thank you. Associated attestation - Ne Arreaga MD - 04/23/2024 9:07 PM EDT I saw and evaluated the patient today. I have reviewed the resident/fellow physician note and agree. I spent a total of 42 minutes coordinating, documenting, and providing care for this patient excluding time spent in the performance of separately billed services. * Jevon Aguirre, [facility] - 04/22/2024 8:26 PM EDT PHARMACY PHARMACOKINETIC CONSULT [address] [id number] Name: Yakov Keller [place] [id number] Date: 04/22/2024 Time: 8:24 PM Requesting Service: Bacteria being treated: empiric Source of infection: spinal abscess Medication(s) being managed: Vancomycin Pharmacokinetic calculations will be performed utilizing [employer] software. Lab information: Lab Results Component Value Date/Time WBC 31.86 (H) 04/22/2024 07:38 PM WBC 31.02 (H) 04/22/2024 12:10 PM WBC 31.37 (H) 04/21/2024 07:56 AM Lab Results Component Value Date/Time BUN 14 04/22/2024 07:38 PM BUN 14 04/22/2024 12:09 PM BUN 16 04/21/2024 07:49 AM BUN 16 04/20/2024 09:27 PM Lab Results Component Value Date/Time CREAT 0.5 04/22/2024 07:38 PM CREAT 0.5 04/22/2024 12:09 PM CREAT 0.6 04/21/2024 07:49 AM CREAT 0.6 04/20/2024 09:27 PM ANTIMICROBIALS GIVEN (last 28 hours) Date/Time Action Medication Dose Rate 04/22/242023 New Bag Meropenem (Merrem) 2,000 mg in NSS 100 mL ivpb 2,000 mg 210 mL/hr 04/22/24 1855 Given ceFAZolin 1 g in sodium chloride IR 0.9 % 1,000 mL irrigation 1,000 mL 04/22/24 1745 Given ceFAZolin (Ancef) inj 2 g 04/22/24 1241 New Bag ceFAZolin in dextrose (Ancef) ivpb 2 g 2 g 100 mL/hr 04/22/24 0505 New Bag ceFAZolin in dextrose (Ancef) ivpb 2 g 2 g 100 mL/hr 04/21/24 2112 New Bag ceFAZolin in dextrose (Ancef) ivpb 2 g 2 g 100 mL/hr Wt Readings from Last 1 Encounters: 04/20/24 68 kg (150 lb) Levels to date: No results found for: "VANCO", "VANCOPEAK", "VANCORANDOM", "VANCOTROUGH", "GENTPEAK", "GENTRANDOM","GENTTROUGH", "TOBRAPEAK", "TOBRARANDOM", "TOBRATROUGH", "AMIKAPEAK", "AMIKARANDOM", "AMIKATROUGH" Impression: Yakov Keller is a/an 54 year old female receiving vancomycin therapy. The pharmacokinetic target for therapy is AUC24,SS (range) 400-600mg/L.hr Assessment and Plan: Drug: Vancomycin Pharmacokinetic target: AUC24 (range) 400-600 mg/L.hr Yakov Keller is a(n) 54 years old female initiating Vancomycin for [PLEASE ADD INDICATION] Recent measured serum creatinine values: 04/22/2024 12:09 0.5 mg/dL 04/21/2024 07:49 0.6 mg/dL 04/20/2024 21:27 0.6 mg/dL Assessment: Analysis using [employer] gives the following patient-specific pharmacokinetic parameters: CL: 5.17 L/hr V: 45.9 L T1/2: 6.55 hours At this time we recommend a regimen of 1750 mg once now followed by 1250 mg IV every 12 hours, which is predicted to result in a steady-state trough of 11 mg/L and AUC24 of 475 mg/L.hr. Recommendations: - Vancomycin 1250 mg IV every 12 hours - Obtain Vancomycin level on 04/24 (not yet ordered) - Continue to monitor serum creatinine Jevon Aguirre * Mitchell Luna PA-C - 04/22/2024 8:03 PM EDT Images from the original note were not included. TRANSFER RECEIVING NOTE - [facility] [address] [place] [id number] Name: Yakov Keller Current Location: [address] HANDOFF COMMUNICATION: Sending patient service: Neurosurgery Accepting service: Critical care Medicine - [place] Sending attending aware of patient and transfer: yes Receiving attending aware of patient and transfer: yes Name of receiving attending provider: Dr. Ross Patient care is being assumed by receiving service: when patient arrives in receiving unit Reason for transfer: post operative management PATIENT DESCRIPTION: Patient is a 54 year old female With limited to no known reported past medical history who was admitted to ICU for a large ventral epidural spinal abscess from skull base to upper lumbar spine and torso epidural spinal abscess in the lower lumbar spine and MSSA bacteremia is s/p source control, decompression, and laminectomy of cervical and thoracic spine by NSGY - see op note below. HPI/EVENTS OF NOTE: Per chart review, Mary Keller is a 54-year-old female with no reported past medical history. As she presented to ED on 04/15 for constipation and bloating where she had a CT performed which showed a partially calcified mucocele of the appendix. She then presented to [facility] on 04/18 for surgicalevaluation for possible spinal infection ratio but was noted to have difficulty ambulating and was then sent to the ED again. However, this time she had a CT of the head, spine, neck, abdomen and pelvis. Imaging showed T8 and T9 paravertebral phlegmon as well as developing abscess with the T9 vertebral body osteomyelitis. She was positive for MSSA bacteremia. Patient was initially admitted to medicine with a ortho consult for the osteomyelitis. She was started on vancomycin with ID consulted who recommended IV ancef. An MRI of the cervical and thoracic were obtained which showed a large ventral epidural extending from the skull base through upper lumbar spine with severe spinal cord compression at T3-T4 and moderate to severe spinal cord compression at T9-T10 and T8-T9. Neurosurgery was consulted and emergently took the patient to the OR for a decompression, source control and laminectomy of C7-T1 and T8-T10 with Dr. Montero. Patient was then admitted to the neuro ICU for closer neuro monitoring after her operation. OP note: Stage I: 1) hemilaminectomies, right cervical 3, left cervical 4, right cervical 5, left cervical 6, right cervical 7, left thoracic 1 2) facetectomy, left cervical 7 thoracic 1 3) evacuation of spinal epidural mass (epidural hematoma) 4) use of intraoperative ultrasonography 5) Use of fluoroscopy Stage II: 1) laminectomy thoracic 8, thoracic 9, thoracic 10 2) Partial laminectomy, inferior thoracic 7, superior thoracic 11 3) medial facetectomies, bilaterally: Thoracic 7-8, thoracic 8-9, thoracic 9-10, thoracic 10-11 4) resection of intraspinal extradural mass at T10 (epidural abscess) 5) use of intraoperative ultrasonography 6) Use of fluoroscopy Anesthesia: General endotracheal Blood loss: 150 cc Fluids: 1500 cc crystalloid colloid: 500 albumin Urine: 300 mL Specimens: Multiple for culture Drains: KRISTAL x3 Complications: None immediately apparent Condition: Stable to recovery TRANSFER MEDICATION RECONCILIATION COMPLETED? yes REVIEW OF SYSTEMS: Mild pain, otherwise no f/c/s/n/v/d/cp/sob/weakness/numbness CONSTITUTIONAL DATA: BP: 156 mmHg/88 mmHg (04/22/241417) Pulse: 104 (04/22/241417) Resp: 12 (04/22/241417) Temp: 38.22 C (04/22/241417) Temp Summary: Temp Min: 36.8 C (98.2 F) Max: 38.3 C (100.9 F) SpO2: 99 % (04/22/241417) O2 flow rate: 0 L/MIN (04/22/24 08) Supplemental O2 Delivery: Room Air, None (04/22/241417) Vent Settings: PHYSICAL EXAM: Constit: No acute distress HEENT: AT/NC, PERRL, EOMI Lungs: CTA b/l no w/r/r Heart: RRR, S1 S2 no m/r/g Abd: Soft, NT/ND, BS present Neuro: AAO x 3, ARREDONDO, Strong throughout, good quality assurance qa lab analyst, GCS 15 Skin: Warm, pink, perfusing Psych: Pleasant LABORATORY VALUES: reviewed Lab results within last 7 days (see chart for full results) Units 04/22/24 1210 04/21/24 0756 HGB g/dL 11.3* 10.7* HCT % 34.5* 32.1* WBC K/uL 31.02* 31.37* PLT K/uL 359 274 Lab results within last 7 days (see chart for full results) Units 04/22/24 1209 04/21/24 0749 04/20/24 2127 Sodium mmol/L 141 140 139 Potassium mmol/L 3.5 3.7 3.4* Chloride mmol/L 101 103 102 CO2 mmol/L 24 26 24 BUN mg/dL 14 16 16 Creatinine mg/dL 0.5 0.6 0.6 Lab results within last 7 days (see chart for full results) Units 04/22/24 1209 04/21/24 0749 Protein g/dL 5.8* 5.5* Bilirubin, Total mg/dL 1.1 1.6* Alkaline Phosphatase U/L 223* 227* AST U/L 58* 108* ALT U/L 67* 112* No results in the last 7 days - inpatent use only CULTURES: Recent Cultures (2 Weeks) 04/21/2024 04/21/2024 7:55 AM 7:49 AM STAIN DESCRIPTION Aerobic bottle Gram positive cocci in clusters Aerobic bottle Gram positive cocciin clusters BLOOD CULTURE GROWTH Pending Pending RADIOGRAPHIC STUDIES: reviewed MRI BRAIN W WO CONTRAST Result Date: 04/22/2024 IMPRESSION 1. No evidence for intracranial extension of the abscess. 2. Diffuse T1 hypointensity inthe calvarium is nonspecific and may relate to red marrow conversion. Correlate with CBC. XR ABDOMEN 1 VIEW Result Date: 04/20/2024 IMPRESSION Gas-filled loops of small and large bowel throughout the abdomen. No appreciable formed colonic stool or discrete bowel obstruction. XR CHEST 1 VIEW Result Date: 04/20/2024 IMPRESSION Tiny right pleural effusion with right basilar atelectasis. No discernible left-sided pleural effusion is seen on this examination. MRI BRAIN W WO CONTRAST Result Date: 04/22/24 IMPRESSION 1. No evidence for intracranial extension of the abscess. 2. Diffuse T1 hypointensity in the calvarium is nonspecific and may relate to red marrow conversion. Correlate with CBC. MRI CERVICAL/THORACIC/LUMBAR SPINE W WO CONTRAST Result Date: 04/22/24 IMPRESSION: 1. Dorsal lower lumbar spine epidural abscess. 2. Ventral epidural abscess extending from skull base through upper lumbar spine. 3. Brain MRI recommended to assess for presence of intracranial extension. 4. Similar to prior CT, there is an enhancing mass at T3-T4 is observed, but presumably meningioma although nonspecific. Differential consideration would include intradural metastasis. There is severe spinal cord compression at T3-T4. There is moderate/severe spinal cord compression at T9-T10 and T8-T9. There is moderate cervical spinal canal narrowing.. 5. Partially loculated, enhancing left upper hemithorax pleural effusion, concerning for empyema and possibly direct extension of paraspinal infection. 6. Globular, enlarged uterus partially visualized. 7. Nonspecific bone marrow enhancement at T10 vertebral body. Malignancy/metastasis not excluded. 8. Partially calcified enhancing right adnexal mass partially visualized. 9. Additional findings as above. Principal Problem: Bacteremia due to Staphylococcus (POA: Yes) Active Problems: Constipation (POA: Yes) Epidural abscess (POA: Yes) Acute osteomyelitis (HCC) (POA: Yes) POA = Present On Admission SYSTEM BASED PLAN: NEURO: #Large ventral epidural abscess from skull base to upper lumbar region s/p source control, decompression, and laminectomy on 04/22/24 #extramedullary tumor - but likely not symptomatic at present per NSGY Neurosurgery following. Appreciate recs MAP goal >65 Q1 neurochecks F/u OR cultures KRISTAL Drains to self suction Broad spec abx No follow up imaging No restrictions VTE Chemo ppx 04/23 at 10 pm Likely to leave unit in AM, here for close post op monitoring given large abscess Analgesia: lidocaine patch Q1 Neuro checks PULMONARY / RESPIRATORY: #Left sided pleural effusion SpO2 goal >92% Chest pt/flutter/incentive CARDIAC / VASCULAR: # Stable Fer as needed to maintain MAP goal >65 Avoid antihypertensive medications EF 55%, no vegetations, see formal report from 04/21 GI / HEPATOBILIARY: #Transaminitis, uptrending #Constipation F/u on Acute hepatitis panel Bowel Regimen: Miralax daily and Senokot BID, PRN dulcolax suppository, RENAL / METABOLIC / FLUIDS: #Hyponatremia - resolved Peralta management - remove in AM Monitor IOs/Electrolytes, replete as needed INFECTIOUS DISEASES: #Sepsis, multifactorial #Epidural abscess from skull base to upper lumbar region #Staph bacteremia #Osteomyelitis #Leukocytosis, uptrending #Loculated left upper hemithorax pleural effusion concerning for possible empyema >MRSA nares negative ID consulted. Appreciate recs Repeat Blood cultures every 48 hours until bacteremia resolves Continue IV ancef per ID but NSGY concerned final reports of bacteria are not available and given the spinal abscess, would pursue broad spec GERMAN TUTOR dosing of Vanc/Caden until intra op cultures return Trend WBC and hgb daily Monitor for fevers ENDOCRINE: No active issues CCM BGL goals of 140-180 mg/dl HEMATOLOGIC: #Anemia DVT PPX: SCDs MUSCULOSLETAL / DERM: # PT/OT consulted Devices: IUBC and Hawkins DEVICES: Urethral Catheter (Active) Number of days: 2 Peripheral Line Lower;Left Arm 20 Gauge (Active) Number of days: 2 GLOBAL ISSUES: Analgesia: no pain Sedation: N/A Delirium/Confusion Assessment Method for ICU (CAM-ICU): CAM-ICU negative HOB Elevation: greater than 30 degress Nutrition: NPO except medications DVT Prophylaxis: pneumatic compression devices alone due to chemoprophylaxis contraindication Stress Ulcer Prophylaxis: not indicated Glycemic Control: controlled - not in protocol Central Line Necessity Reviewed: N/A Peralta: will remove Disposition: keep in ICU Patient's decisional capacity: has capacity to make decisions Communication with Patient/Family: No meeting held. Goals of Care: improve mental status to baseline and decrease pain and discomfort Pt seen, examined and discussed with Dr. Ross. Non critical care time 35 minutes. Associated attestation - Júnior Ross DO - 04/22/2024 10:38 PM EDT Critical Care Medicine Staff: I have reviewed the advanced practitioner's documentation on the date of service referenced in note, and I agree with, and take responsibility for the plan of care. Briefly, the patient is a 54-year-old never smoker he reports no known significant past history. [facility]. Reportedly, outside blood cultures were positive for MSSA. She was seen by Neurosurgery, Orthopedic spine surgery, and Infectious Disease. She was placed on cefazolin and recommended source control, as per ID. She went to the OR with Neurosurgery on 04/22/2024 for debridement and evacuation of spinal epidural mass/epidural hematoma/epidural abscess. Postoperatively, there was some concern for hypotension, though this has resolved. Per Neurosurgery request, she was admitted to the neuro ICU for monitoring postoperatively. At the time of my evaluation, the patient's vital signs were acceptable. She was afebrile with map well above 70. She was minimally tachycardic with heart rate 101 and slightly tachypneic with respiratory rate 24. However, she was without major complaints. She was lying supine and denies any uncontrolled pain. She denies any new neurologic symptoms. She was on low-dose supplemental oxygen at 2 liters/minute via traditional nasal cannula and denies dyspnea, cough, sputum, wheeze, chest tightness. She also denies any chest pain or palpitations. Labs/imaging personally reviewed and visualized. Significant for: BMP: Estimated GFR > 90. Mild evidence of metabolic acidosis with elevated anion gap. Mild hypocalcemia, though ionized calcium within normal limits. Electrolytes unremarkable otherwise. Mild hyperglycemia. INR: 1.2 CBC with differential: Significant leukocytosis with left shift. No eosinophilia. Mild acute on chronic anemia with hemoglobin presently measuring 9.1. Normal platelet count. Blood cultures 04/21/2024 showing Gram-positive cocci in clusters on both sets. Intraoperative cultures 04/22/2024 remain pending HIV antigen/antibody 04/22/2024: Pending MRSA nasal screening 32,024: Negative LFTs: Improving mild transaminase elevation. Persistent mild alkaline phosphatase elevation. Resolved total bilirubin elevation. Hypoalbuminemia. Hepatitis-B surface antigen and antibody, hepatitis-C antibody 04/22/2024: Negative MRI brain 04/22/2024: IMPRESSION 1. No evidence for intracranial extension of the abscess. 2. Diffuse T1 hypointensity in the calvarium is nonspecific and may relate to red marrow conversion. Correlate with CBC." MRI C, T, L-spine 04/22/2024: IMPRESSION: 1. Dorsal lower lumbar spine epidural abscess. 2. Ventral epidural abscess extending from skull base through upper lumbar spine. 3. Brain MRI recommended to assess for presence of intracranial extension. 4. Similar to prior CT, there is an enhancing massat T3- T4 is observed, but presumably meningioma although nonspecific. Differential consideration would include intradural metastasis. There is severe spinal cord compression at T3-T4. There is moderate/severe spinal cord compression at T9-T10 and T8-T9. There is moderate cervical spinal canal narrowing. 5. Partially loculated, enhancing left upper hemithorax pleural effusion, concerning for empyema and possibly direct extension of paraspinal infection. 6. Globular, enlarged uterus partially visualized. 7. Nonspecific bone marrow enhancement at T10 vertebral body. Malignancy/metastasis not excluded. 8. Partially calcified enhancing right adnexal mass partially visualized. 9. Additional findings as above." One-view chest x-ray 04/20/2024: Small infiltrate and small right-sided dependent pleural effusion.Lung franco otherwise are unremarkable. No significant left-sided pleural disease. Cardiomediastinal silhouette appears slightly shifted toward the right, but appears normal in size. When compared to prior chest x-ray 04/18/2024, blunting of the right costophrenic angle and nearby infiltrate appears new mild blunting of the left costophrenic angle has resolved. Chest CT 04/18/2024: Scattered areas of mild linear and dependent linear atelectasis, worst in the left hemithorax. In the inferior left lower lobe, there appears to be a small area of infiltrate. Inthe inferior lingula, there is a small area infiltrate versus atelectasis (more likely) laterally. There appears to be a small, likely loculated, basilar left pleural fluid collection. Major airways are patent, though tiny distal airways in the left lower lobe may contain some debris. Shotty mediastinal lymph nodes without overt adenopathy. Posteriorly, there appears to be a paraspinal fluid collection, containing a small pocket of gas. When compared to CT images available from 04/15/2024, left basilar parenchymal and pleural findings appear new. Transthoracic echocardiogram 04/21/2024: No obvious vegetations in the visualized valves. No LV segmental wall motion abnormalities. LV EF 55-59%. RV size and systolic function normal. Mild mitral regurgitation. Mild tricuspid regurgitation. Atrial size normal. Grade 1 diastolic dysfunction. No pericardial effusion. PA acceleration time 0.11 seconds. Tricuspid regurgitant max velocity 266.6 centimeters/second. Physical examination: Lying supine in bed. Oriented to person, place, time. Able to move 4 extremities, though symmetrically slightly weak in the bilateral lower extremities. She reports sensation isintact. Breath sounds diminished in the dependent regions without crackles, rhonchi, wheeze. Air movement relatively preserved elsewhere. Heart regular. Abdomen soft audible bowel sounds. Extremitieswith trace ankle edema. No cyanosis. Agree with assessment and plan as outlined by Amanuel Luna PA-C: Paraspinal/epidural abscess Gram-positive bacteremia. Outside blood cultures reportedly showing MSSA Tiny left-sided pleural effusion with left basilar infiltrate on chest CT 04/18/2024 (not present on prior CT 04/15/2024). However, 04/20/2024 suggesting right basilar small infiltrate and small effusion. Acute hypoxemic respiratory failure (mild) Continue antimicrobials as outlined by Infectious Disease. However, given extensive intraoperative findings, Neurosurgery is recommending broader spectrum antimicrobials until [facility] OR cultures are processed. This is reasonable, given the OR findings. Therefore, will add vancomycin and meropenem while following intraoperative cultures gathered 04/22/2024. Will also await further follow-up Infectious Disease, in this regard Repeat blood cultures in the a.m. to assess for clearing. May require transesophageal echocardiogram if blood cultures fail to clear. She does have mild valvular heart disease seen on transthoracic echocardiogram 04/21/2024 Continue neuro checks hourly overnight Wound and drain management as per Neurosurgery recommendations. Appreciate the assistance Per Neurosurgery, holding pharmacologic DVT prophylaxis until the evening of 04/23/2024 Prn analgesics postoperatively Will likely need to monitor chest imaging. Consider repeating chest x-ray in 1-2 days and may be considered for repeating noncontrast chest CT closer to the time of hospital discharge or if her condition worsens or fails to improve. For now, infiltrate and pleural fluid collections seen on the available imaging appear to small to safely drain via chest tube or other mechanical means. Airways are p atent and there was no clear role for bronchoscopy at this time. Wean supplemental oxygen as able. Pulse oximetry goal 89% or above. Focus on pulmonary hygiene as below Follow volume status and avoid hypervolemia. Presently, she examines minimally volume up as manifested by trace ankle edema, but no obvious crackles on pulmonary exam. Devices / Nutrition / Prophylaxis / PT/OT: PT/OT when/if able, as per Neurosurgery Okay to have p.o. diet, as per Neurosurgery Holding pharmacologic DVT prophylaxis until the evening of 04/23/2024, as above. Mechanical prophylaxis okay Pulmonary hygiene with incentive spirometry and flutter Follow Up: To be determined based on clinical course May be considered for follow-up chest imaging, as outlined above All questions from the patient were addressed. I spent a total of 57 minutes coordinating, documenting, and providing care for this patient excluding time spent in the performance of separately billed services or time spent by another provider/QHP. Please note that this document was completed using voice recognition software. Please excuse any word deletions, word substitutions, punctuation errors, and other similar sleep technologist errors. * Modesta Diaz MD - 04/22/2024 7:38 AM EDT Images from the original note were not included. [facility] A460/A INTERVAL HISTORY: Patient is seen at the bedside, in no distress of discomfort. She is hemodynamically stable. MRI done and results : reviewed results. (Ventral epidural abscess extending from skull base through upper lumbar spine), to follow up with ortho spine / neurosurgery. No overnight events. Confirms to be NO code, and childhood hearing difficulty L>R. Objective Physical Exam Most Recent Vital Signs: BP: 136 mmHg/82 mmHg (04/22/24232) Pulse: 94 (04/22/24232) Resp: 20 (04/22/24232) Temp: 37.11 C (04/22/24232) Temp Summary: Temp Min: 37.1 C (98.8 F) Max: 38.3 C (100.9 F) SpO2: 97 % (04/22/24232) O2 flow rate: 0 L/MIN (04/21/242211) Supplemental O2 Delivery: Room Air, None (04/22/24232) Constitutional: Not in distress, comfortable ENT: No pharyngeal erythema, neck supple L>R hearing loss Respiratory: Bilateral equal air entry, no crackles, wheezing Cardiovascular: S1,S2 normal,RRR Abdomen: Soft, nontender, distended, regular bowel sounds. Back: no step-offs throughout C/TL spine. No tenderness over c/t/l spine midline or paraspinal MSK: no obvious orthopaedic deformities noted on exam. nontender to palpation throughout upper and lower extremities Extremity/skin: No Pedal edema, skin intact Neurology: AOx3, grossly unremarkable motor and sensory exam. Urethral Catheter (Active) Number of days: 2 Peripheral Line Lower;Left Arm 20 Gauge (Active) Number of days: 2 STUDIES: Encounter Orders Labs and other studies reviewed with pertinent findings noted below: reviewed Assessment and Plan IMPRESSION : Principal Problem: Bacteremia due to Staphylococcus Active Problems: Constipation Epidural abscess Acute osteomyelitis (HCC) Resolved Problems: * No resolved hospital problems. * DIFFERENTIAL AND PLAN: Ms. Paula Keller admitted for her progressive ambulatory dysfunction found to have Staphylococcusbacteremia and imaging findings concerning for T8-T9 osteomyelitis, diskitis, and epidural abscess. Sepsis 2/2 Staph bacteremia and osteomyelitis, diskitis, epidural abscess of thoracic spine Transaminitis (trending up) Leukocytosis (trending up 26k-->31k) Hyponatremia- resolved Abdominal distention, Constipation - Sinus tachycardia - resolved MRI : Dorsal lower lumbar spine epidural abscess. Ventral epidural abscess extending from skull base through upper lumbar spine. Brain MRI recommended to assess for presence of intracranial extension. Similar to prior CT, there is an enhancing mass at T3-T4 is observed, but presumably meningioma although nonspecific. Differential consideration would include intradural metastasis. There is severe spinal cord compression at T3-T4. There is moderate/severe spinal cord compression at T9-T10 and T8-T9. There is moderate cervical spinal canal narrowing.. Partially loculated, enhancing left upper hemithorax pleural effusion, concerning for empyema and possibly direct extension of paraspinal infection. Globular, enlarged uterus partially visualized. Nonspecific bone marrow enhancement at T10 vertebral body. Malignancy/metastasis not excluded. Partially calcified enhancing right adnexal mass partially visualized. -MRSA negative -TTE -no vegetations Staphylococcus species noted on outside blood cultures per report, PCR not available. Source for her bacteremia is unclear as she has no known medical history and denies IV drug use. Sepsis has improved. Leukocytosis present on admission. Was initially tachycardic and intermittently febrile with temperature 100.4 on admission. -orthopedic spine./ neurosx follow up -ID consult appreciated : Gram-positive bacteremia - may need a PICC line pending negative cutlures - Iv cefazolin in the setting of the [facility] records - refused bowel regime for now - follow up blood cultures - bowel regime when agreeable -Gentle iv hydration -telemetry monitoring Acute hypoxic respiratory failure Tiny right-sided pleural effusion On RA PHARMACOLOGIC VTE PROPHYLAXIS: This patient does not have an active medication from one of the medication groupers. CODE STATUS: No Code EXPECTED DISCHARGE DATE: 04/25/2024 I spent a total of 52 minutes coordinating, documenting, and providing care for this patient excluding time spent in the performance of separately billed services. * Fan Izquierdo MD - 04/21/2024 3:28 PM EDT This case was reviewed with the resident on-call. The patient's outside imaging was reviewed as well. For details of her history and exam please see the resident's note. I reviewed the CT scan that shehad done outside. To be perfectly honest I did not see any significant bone destruction or other evidence of a diskitis. Certainly the radiologist's interpretation is important, however I think it isimperative to get the MRI to see what exactly is going on. We will follow closely. Based on her history, exam, and CT scan I do not feel that urgent surgery is indicated at this time. Orthopedics will review the MRI when complete * Modesta Diaz MD - 04/21/2024 11:00 AM EDT Images from the original note were not included. [facility] A462/A INTERVAL HISTORY: Patient is seen at the bedside, with no complains however is not able hear well on both the ears (R>L). She is intermittently febirle, and mildly tachycardic and hypertensive in the setting of infection. Follow up ID, MRI results, ortho spine follow up after the MRI for further management. No overnight events. Objective Physical Exam Most Recent Vital Signs: BP: 135 mmHg/87 mmHg (04/21/24625) Pulse: 91 (04/21/24625) Resp: 18 (04/21/24625) Temp: 36.28 C (04/21/24625) Temp Summary: Temp Min: 36.3 C (97.3 F) Max: 38.9 C (102 F) SpO2: 97 % (04/21/24625) O2 flow rate: 2 L/MIN (04/21/24799) Supplemental O2 Delivery: Nasal Cannula (04/21/24799) Constitutional: Not in distress, comfortable ENT: No pharyngeal erythema, neck supple Respiratory: Bilateral equal air entry, no crackles, wheezing Cardiovascular: S1,S2 normal,RRR Abdomen: Soft, nontender, regular bowel sounds. Back: no step-offs throughout C/TL spine. No tenderness over c/t/l spine midline or paraspinal MSK: no obvious orthopaedic deformities noted on exam. nontender to palpation throughout upper and lower extremities distal extremities warm and well perfused Extremity/skin: No Pedal edema, skin intact Neurology: AOx3, grossly unremarkable motor and sensory exam. Urethral Catheter (Active) Number of days: 1 Peripheral Line Lower;Left Arm 20 Gauge (Active) Number of days: 1 STUDIES: Encounter Orders Labs and other studies reviewed with pertinent findings noted below: CULTURE, BLOOD Collected: 04/21/24748 | Preliminary result | Specimen: Blood, Venous Blood Culture Growth No growth to date P CULTURE, BLOOD Collected: 04/21/245 | Preliminary result | Specimen: Blood, Venous Blood Culture Growth No growth to date P COMPREHENSIVE METABOLIC PANEL Collected: 04/21/24748 | Final result | Specimen: Blood, Venous BUN 16 mg/dL Glucose 106 mg/dL Creatinine 0.6 mg/dL Albumin 2.6 Low g/dL Estimated Glomerular Filtration Rate >90 mL/min AST 108 High U/L Sodium 140 mmol/L Alkaline Phosphatase 227 High U/L Potassium 3.7 mmol/L Bilirubin, Total 1.6 High mg/dL Chloride 103 mmol/L Calcium 8.3 Low mg/dL CO2 26 mmol/L Protein 5.5 Low g/dL Anion Gap 11 mmol/L ALT 112 High U/L CBC WITH WBC DIFFERENTIAL Collected: 04/21/24755 | Final result | Specimen: Blood, Venous DIFFERENTIAL, AUTOMATED Collected: 04/21/24755 | Final result | Specimen: Blood, Venous DIFFERENTIAL, TECHNOLOGIST REVIEW Collected: 04/21/24755 | Final result | Specimen: Blood, Venous WBC 31.37 High K/uL Absolute Neutrophils 26.35 High K/uL Neutrophils % 84.0 High % Absolute Lymphocytes 2.20 K/uL Lymphocytes % 7.0 Low % Absolute Monocytes 1.57 High K/uL Monocytes % 5.0 % Absolute Eosinophils 0.31 K/uL Eosinophils % 1.0 % Absolute Metamyelocytes 0.31 High K/uL Metamyelocytes % 1.0 High % Absolute Myelocytes 0.63 High K/uL Myelocytes % 2.0 High % CBC Collected: 04/21/24755 | Final result | Specimen: Blood, Venous WBC 31.37 High K/uL MCHC 33.3 g/dL RBC 3.53 M/uL RDW 15.4 % HGB 10.7 Low g/dL PLT 274 K/uL HCT 32.1 Low % MPV 10.3 fL MCV 90.9 fL nRBCs 0 /100 WBCs MCH 30.3 pg MRSA SCREEN, PCR Collected: 04/21/24 0029 | Final result | Specimen: Upper Respiratory from Nares, Bilateral MRSA PCR Result Negative Assessment and Plan IMPRESSION : Principal Problem: Bacteremia due to Staphylococcus Active Problems: Constipation Epidural abscess Acute osteomyelitis (HCC) Resolved Problems: * No resolved hospital problems. * DIFFERENTIAL AND PLAN: progressive ambulatory dysfunction found to have Staphylococcus bacteremia and imaging findings concerning for T8-T9 osteomyelitis, diskitis, and epidural abscess. Sepsis 2/2 Staph bacteremia and osteomyelitis, diskitis, epidural abscess of thoracic spine Transaminitis (trending up) Leukocytosis (trending up 26k-->31k) Hyponatremia- resolved Abdominal distention Constipation Sinus tachycardia -Likely in setting of sepsis and fever. Staphylococcus species noted on outside blood cultures per report, PCR not available. Source for her bacteremia is unclear as she has no known medical history and denies IV drug use. Sepsis has improved. Leukocytosis present on admission downtrending. Remains tachycardic and intermittently febrile with temperature 100.4 on admission. -MRSA negative -vancomycin dc'ed -MRI spine pending -orthopedic follow up after MRI -ID consult appreciated : Gram-positive bacteremia - Iv cefazolin in the setting of the [facility] records -TTE - reviewed- no vegetations -repeat blood cultures today taken and reviewed for no growth - bowel regime - KUB if continues to be constipation and in if discomfort -Gentle iv hydration -telemetry monitoring Acute hypoxic respiratory failure Tiny right-sided pleural effusion Wean O2 as tolerated Chronic medical conditions: - patient has no known chronic medical conditions - if persistent hyperglycemia is noted on BMP, would recommend A1c screening PHARMACOLOGIC VTE PROPHYLAXIS: This patient does not have an active medication from one of the medication groupers. CODE STATUS: No Code EXPECTED DISCHARGE DATE: to be determined I spent a total of 56 minutes coordinating, documenting, and providing care for this patient excluding time spent in the performance of separately billed services. * Cecily Stafford, [facility] - 04/20/2024 10:11 PM EDT PHARMACY PHARMACOKINETIC CONSULT [facility] [id number] Name: Yakov Keller Location[place] [facility] A462/A Date: 04/20/2024 Time: 10:08 PM Requesting Service: Med G Bacteria being treated: Staph species Source of infection: bacteremia / progression of a T8-T9 paravertebral phlegmon/developing abscess and T9 vertebral body osteomyelitis. Medication(s) being managed: Vancomycin Pharmacokinetic calculations will be performed utilizing [employer] software. Lab information: No results found for: "WBC" Lab Results Component Value Date/Time BUN 16 04/20/2024 09:27 PM Lab Results Component Value Date/Time CREAT 0.6 04/20/2024 09:27 PM ANTIMICROBIALS GIVEN (last 28 hours) None Wt Readings from Last 1 Encounters: 04/20/24 68 kg (150 lb) Levels to date: No results found for: "VANCO", "VANCOPEAK", "VANCORANDOM", "VANCOTROUGH", "GENTPEAK", "GENTRANDOM","GENTTROUGH", "TOBRAPEAK", "TOBRARANDOM", "TOBRATROUGH", "AMIKAPEAK", "AMIKARANDOM", "AMIKATROUGH" Impression: Yakov Keller is a/an 54 year old female receiving vancomycin therapy. The pharmacokinetic target for therapy is AUC24,SS (range) 400-600mg/L.hr Assessment and Plan: Analysis using [employer] gives the following patient-specific pharmacokinetic parameters: CL: 4.3 L/hr V: 45.9 L T1/2: 8.85 hours At this time we recommend a loading dose of 1750 mg at 22:05 04/20/2024, followed by a regimen of 1250 mg IV every 12 hours, which is predicted to result in a steady-state trough of 14.5 mg/L and AUC24 of 567 mg/L.hr. Obtain next vancomycin level 04/22 with am labs . Pharmacy will continue to follow and dose as appropriate by renal function, culture results, infectious disease input, and overall clinical status. Contact the Pharmacy at extension [phone] if there are any questions. Cecily Stafford RPh documented in this encounter H&P Notes * JilgAnita, - 04/20/2024 5:44 PM EDT HISTORY AND PHYSICAL EXAMINATION - Medicine [address] [address] Name: Yakov Keller [place] [facility] [place]A Date: 04/20/2024 Time: 5:45 PM PRESENTING PROBLEM: transfer of care HPI: Yakov Keller is a 54 year old female with no known past medical history. Initially presented to [facility] on 04/18 from surgery clinic for evaluation of possible spinal infection. Per review of records, she was seen at surgery after an ED visit on 04/15 for constipation and bloating; CT imaging at that time revealed a partially calcified mucocele of the appendix. At clinic shewas noted to have difficulty ambulating prompting ED evaluation. I have extensively reviewed records sent by outside hospital. On admission, she was noted to be tachycardic. Workup was notable for a left sided pleural effusion, WBC 26.8, ESR 78, CRP 51,sodium 121,Sosm 257, Uosm 384, Juan < 20, troponin T 41.3, procalcitonin 2.2. She underwent sepsis workup including CT imaging of the head, spine, neck, abdomen and pelvis. These showed progression of a T8-T9 paravertebral phlegmon/developing abscess and T9 vertebral body osteomyelitis. Blood cultures unfortunately not sent with packet. I was able to call facility for an update which notes cultures positive for Staph species. As on my evaluation, patient is most concerned about abdominal distention and new constipation. Sheis typically regular but notes trouble with constipation starting 1 week ago. She was started on a bowel regimen and did have some liquid bowel movements but continued to endorse abdominal distention. Last bowel movement was on Wednesday. She denies saddle anesthesia. Does note difficulty ambulating in needing assistance rising from sitting to standing. At baseline, she is fully functional and participates in martial arts. She denies sensory changes in lower extremities. Has some pain in her midthoracic spine when lying directly on her back which she attributes to pain from her abdominal distention. She does note that a Peralta catheter was placed at prior hospital due to difficulty getting up to use the bathroom. To elects to be a no code. In the event she were unable to make decisions for herself, she would elect Rebecca Sullivan to make decisions on her behalf. SOCIAL HISTORY: Tobacco: Denies Alcohol: Denies Illicit drugs: Denies including IV drug use Occupation: Works at [employer] Medications: Prior to admission medications have been reviewed with patient. ALLERGIES: Patient has no known allergies. ROS: As per HPI, otherwise negative PHYSICAL EXAMINATION: Most Recent Vital Signs: BP: 137 mmHg/74 mmHg (04/20/241804) Pulse: 106 (04/20/24 180) Resp: 18 (04/20/241804) Temp: 38 C (04/20/241804) Temp Summary: Temp Min: 38 C (100.4 F) Max: 38 C (100.4 F) SpO2: 93 % (04/20/241804) O2 flow rate: 2 L/MIN (04/20/241899) Supplemental O2 Delivery: Nasal Cannula (04/20/241899) Constitutional: lying in bed, appears comfortable and in no obvious distress Neurological: awake, alert and oriented to person, place and time, sensation of bilateral upper andlower extremities grossly intact to light touch Ears, nose, mouth, throat: dry mucus membranes, no oropharyngeal exudates or erythema, normal dentition Eyes: sclera white, no conjunctival injection, EOMI Neck: supple Cardiovascular: regular rate and rhythm, no murmur or rub appreciated, radial and dorsalis pedis pulses 2+ bilaterally Respiratory: clear to auscultation bilaterally, no wheezes or crackles noted, normal respiratory effort on room air Gastrointestinal: soft, distended, non-tender to palpation, bowel sounds present Genitourinary: Peralta catheter in place with orange-tinged urine Musculoskeletal: no bony tenderness to palpation, no joint effusions, gait unable to be assessed Skin: warm and dry, intact, without rashes or lesions identified Hematologic/Lymphatics: no cervical, submandibular or supraclavicular adenopathy Psychiatric: normal mood and affect, responses appropriate LABS: Reviewed, significant results as follows. Sodium 121 with repeat 128 Chloride 80 Glucose 200 Total bilirubin 1.7 AST 69 ALT 64 Alkaline phosphatase 206 Labs from 04/19 notable for WBC 20.56 Hemoglobin 10.8 Platelet 188 Sodium 131 Creatinine 0.5 Bilirubin 1.5 AST 64 ALT 54 Alkaline phosphatase 155 Albumin 2.8 Na from 04/20 136 IMAGING: Per radiology report: CT of the abdomen and pelvis shows interval progression of paravertebral abnormality centered at T8-T9 level with a left paravertebral phlegmon/developing abscess with evidence for epidural extend urine with moderate narrowing of the thecal sac concerning for epidural abscess versus mass. Small focus of bony destruction within the left side of the T9 vertebral body consistent with osteomyelitis with possible associated diskitis at T8-T9. Small left pleural effusion. Small pericardial effusion with mild pericardial enhancement. 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 Mildly distended and fluid-filled colon. CT cervical spine with no acute cervical spine fracture subluxation. Mild multilevel degenerative disc disease and facet arthrosis present. IMPRESSION: Principal Problem: Bacteremia due to Staphylococcus (POA: Yes) Active Problems: Constipation (POA: Yes) Epidural abscess (POA: Yes) Acute osteomyelitis (HCC) (POA: Yes) Resolved Problems: * No resolved hospital problems. * POA = Present On Admission PROBLEM BASED ASSESSMENT AND PLAN: For a 54 year old female with history outlined above presenting with progressive ambulatory dysfunction found to have Staphylococcus bacteremia and imaging findings concerning for T8-T9 osteomyelitis, diskitis, and epidural abscess. Sepsis secondary to Staph bacteremia and osteomyelitis, diskitis, epidural abscess of thoracic spine Transaminitis Leukocytosis Staphylococcus species noted on outside blood cultures per report, PCR not available. Source for her bacteremia is unclear as she has no known medical history and denies IV drug use. Sepsis has improved. Leukocytosis present on admission downtrending. Remains tachycardic and intermittently febrile with temperature 100.4 on admission. -MRSA swab -vancomycin per pharmacy -orthopedic consult for spine evaluation -ID consult given Gram-positive bacteremia -TTE -repeat blood cultures tomorrow -follow-up with [facility] medical records tomorrow Abdominal distention Constipation Constipation may be in setting of spinal infection. Unclear if urinary retention present -obtain KUB -start bowel regimen Hyponatremia, present on admission, resolved on morning blood work Suspect multifactorial from sepsis and poor oral intake as well as pseudohyponatremia from hyperglycemia given stress response. Subsequent glucose notably within normal limits. Last sodium 136. -daily BMP -continue Isolyte infusion while NPO pending input from surgery team Sinus tachycardia Likely in setting of sepsis and fever. -will monitor for now Acute hypoxic respiratory failure Left-sided pleural effusion Pleural effusion noted on CT and chest x-ray imaging done on admission to [facility]. Etiology for this is unclear. Reportedly, she had desaturation at outside hospital requiring 2 L oxygen by nasal cannula. At time of my evaluation, she is 93% on 2 L. -wean oxygen as tolerated -update CXR to ensure no interval progression in size of effusion Chronic medical conditions: - patient has no known chronic medical conditions - if persistent hyperglycemia is noted on BMP, would recommend A1c screening Disposition: Med surg DVT Prophylaxis: hold pending possible intervention Bowel Prophylaxis: senna-docusate, miralax, dulcolax suppository Diet: NPO except meds PT/OT: will consult Code Status: Code Status: No Code If patient were unable to make own medical decisions, they would elect Rebecca Sullivan to make medical decisions on their behalf. Anticipated Discharge: 2 days or more I spent a total of 82 minutes coordinating, documenting, and providing care for this patient excluding time spent in the performance of separately billed services or time spent by another provider/QHP. documented in this encounter Procedure Notes * Tammie Decker MD - 05/06/2024 1:41 PM EDT PROCEDURE NOTE - Interventional Radiology [facility] [address] Name: Yakov Keller Location: RADIOLOGY WAITING ROOM/IR Date: 05/06/2024 Time: 1:41 PM PROCEDURE: tunneled CVC placement WATER SAFETY TEACHER: Dr. Mike Osorio ASSISTANTS: Dr. Tammie Decker ANESTHESIA: local Fentanyl COMPLICATIONS: none SPECIMEN: none ESTIMATED BLOOD LOSS: negligible FINDINGS: 5 Fr single lumen tunneled CVC placed in right IJ. PLAN: - okay to use tube immediately - please monitor patient for future attempts to pull out tube Please contact IR for any questions/concerns. Electronically signed: Tammie Decker MD IR/DR resident. * Nate Perez RN - 05/06/2024 1:28 PM EDTAssociated Order(s): Central Line PROCEDURE NOTE [address] [address] Name: Yakov Keller Location: RADIOLOGY WAITING ROOM/IR Date: 05/06/2024 Time: 1:28 PM Central Line General Information and Staff: Performed by: Tammie Decker MD Supervised by: Mike Osorio MD Procedure Date/Time: 05/06/2024 1:28 PM Patient Location: IR Indication: senior living vascular access Patient identity confirmed: Verbally with patient and arm band (see official TimeOut for additionalinformation) Time out: Immediately prior to the procedure a time out was completed Anticoagulation therapy: Yes Medication: Heparin Procedure Detail: Sterility Preparation: mask worn, sterile gloves worn, cap worn, sterile sheet used, sterile gown worn and full body drape Provider Hand Hygiene: antimicrobial soap and water Placement conditions: Elective Patient Position: Supine Prep: Chlorhexidine Local Anesthetic Used: Yes Catheter Type: Tunneled Power Line Tunneled CVC Laterality: Right Tunneled CVC Site: Chest Tunneled CVC Vessel: Internal Jugular Catheter size: 5 Fr Catheter Total Length (cm): 22 Catheter Internal Length (cm): 22 Catheter External Length (cm): 0 Lot Number: [id number] Number of Lumens: Single lumen Oximetric Catheter?: No Number of Needle Passes: 1 Placement: target vein identified, needle advanced into vein and blood aspirated and guidewire advanced into vein Radiologic Support with Sterile Technique: surface landmarks Identified, ultrasound guidance used and live fluoroscopy Sterile gel and probe cover used for ultrasound?: Yes Intravenous Verification: live fluoroscopy Outcomes/Complications: patient tolerated procedure well with no complications Estimated blood loss (mL): Minimal PA Catheter Placed?: No Post Insertion: Post Insertion Details: all ports aspirated, all ports flushed easily, guidewire was removed, examined and appears intact, line was sutured in place and dressing was applied Site cleansed: Chlorhexidine Line secured with: Monafilament Suture Dressing applied: Gel Chlorhexidine Gluconate, Transparent and Occlusive Tip Confirmation: Radiologic Tip Location: Line Ok to use and Other Location Other: RA Tamially signed by Mike Osorio MD at 05/07/2024 6:25 PM EDT * James Lester MD - 05/01/2024 11:28 AM EDTAssociated Order(s): PICC Placement Post-Procedure Diagnose(s): Epidural abscess PROCEDURE NOTE [address] [address] Name: Yakov Keller Location: RADIOLOGY WAITING ROOM/IR Date: 05/01/2024 Time: 11:28 AM PICC Placement General Information and Staff: Performed by: James Lester MD Assisted by: Edwin Bangura DO Procedure Date/Time: 05/01/2024 11:31 AM Patient Location: IR Indication: senior living vascular access Patient identity confirmed: Verbally with patient and arm band Verbal confirmation: MRN, name and date of Written consent obtained: Yes Consent given by: Power of attorney law clerk Understanding of procedure being performed: Yes Understanding of procedure matches verbalized consent: Yes Procedure consent matches procedure scheduled: Yes Allergies reviewed: Yes Site marked: n/a Verify correct position: Yes Radiology Studies available/reviewed: yes Relevant Lab Results available/reviewed: yes Required items available: yes Other healthcare professional(s) verbalize(s) agreement with time out: Yes Name(s): see timeout Time out: Immediately prior to the procedure a time out was completed Procedure Detail: Sterility Preparation: mask worn, sterile gloves worn, cap worn, sterile sheet used, sterile gown worn and full body drape Provider Hand Hygiene: alcohol-based hand rub Placement conditions: Elective Patient Position: Supine Prep: Chlorhexidine Catheter Type: Power PICC PICC Laterality: Right PICC Site: Arm PICC Vessel: Brachial Other: Bard PowerPICC Solo Catheter size: 4 fr Catheter Total Length (cm): 38 Catheter Internal Length (cm): 38 Catheter External Length (cm): 0 Lot Number: [id number] EXP: 2025-08-22 Number of Lumens: Single lumen Number of Needle Passes: 1 Placement: target vein identified, needle advanced into vein and blood aspirated and guidewire advanced into vein Radiologic Support with Sterile Technique: ultrasound guidance used and live fluoroscopy Sterile gel and probe cover used for ultrasound?: Yes Intravenous Verification: live fluoroscopy Outcomes/Complications: patient tolerated procedure well with no complications Estimated blood loss: minimal. Post Insertion: Post Insertion Details: all ports aspirated, all ports flushed easily, guidewire was removed, examined and appears intact, line was sutured in place and dressing was applied Site cleansed: Other (comment) Line secured with: Adhesive Securement Device Dressing applied: Gel Chlorhexidine Gluconate Tip Confirmation: Radiologic Tip Location: Line Ok to use * Davide Vargas DO - 04/23/2024 2:27 PM EDTAssociated Order(s): EKG REASON FOR STUDY: Tachycardia CONCLUSIONS: Sinus tachycardia Ventricular Rate: 108 Atrial Rate: 108 IN Interval: 122 QRS Duration: 82 QT/QTc: 334/447 ms P-R-T Somers: 56 : 23 : 53 degrees documented in this encounter Consult Notes * Ann Armstrong MD - 05/03/2024 3:10 PM EDTAssociated Order(s): PSYCHIATRY CONSULT IP PSYCHIATRY CONSULT NOTE Patient location: HOSPITAL. I was not in a hospital or clinic location. After connecting through [place], patient was identified by name and date of and/or wristband checked. Patient (or authorized legal tour sales representative) was then informed that this was a Telemedicine visit and was being conducted confidentially over secure lines. My office door was closed. No one else was in the room with me.. Patient acknowledged consent and understanding of privacy and security of the Telemedicine visit and gave permission to have a telemedicine presenter stay in the room in order to assist with the history and to conduct the exam as needed. I informed the patient that I have reviewed their record in [facility] and presented the opportunity for them to ask any questions regarding the visit today. The patient agreed to participate. Date of Consult: 04/25/2024 Subjective HISTORY OF PRESENT ILLNESS (HPI): The reason for psychiatric consultation is psychiatric evaluation follow up, acute psychosis and behavioral agitation. Pt's sister was in the room with pt's permission. Patient reports "No, I know when the [employer] football game is." Her thought process seemed very disjointed initially as she came back several times to the topic of [place] and talking about "miles away," but her sister was able to clarify some of the pt's concerns - eg, noted that she keeps talking about [employer] and traffic because she is worried that a [employer] game would cause miles of traffic which would impede her ability to be transitioned to rehab (which sister says is accurate). Sister briefly makes mention of the noise of the hospital and transitions being very disturbing for someone on the spectrum, but patient is upset by this comment and sister does clarify that the ptdoes not have a diagnosis of autism (or other prior psychiatric dx). Pt does not recall pulling outPICC line and seems to think staff removed, and she does not recall incident with peralta bag or nurse - she specifically says she would not brass pickler the peralta bag as that is where urine is collected. There also continued to be some issues with pt's partial hearing as she struggled to hear people depending on where they were in the room and was very bothered by noises (machinery she could hear outside, beeping of medical equipment). Initially when I asked about AH, pt seemed to agree but was then indicating things she physically could and could not hear in the room with her ears rather than hallucinations. Denies SI, HI. Prior collateral does indicate that at baseline pt is hyperverbal and tangential, requiring redirection. PSYCHIATRIC REVIEW OF SYSTEMS: comprehensive quantitative ROS was undertaken and noted in HPI as above PAST PSYCHIATRIC HISTORY Denies. I have reviewed the patient's allergies, past history, and medications. MENTAL STATUS EXAM (MSE) Appearance: dressed in hospital garb, + soft wrist restraints Attitude: cooperative Eye Contact: intermittent - frequently turning her bed back and forth Behavior: fidgety, restless Impulse Control: fair Speech: regular tone, hyperverbal Mood: euthymic Affect: constricted, somewhat anxious appearing Thought Process: tangential Thought Content: Denies AVH, no RIS or overt delusions Suicidality and Homicidality: No Ideation Insight: limited Judgment: limited Memory: fair Attention/Concentration: appears fair to somewhat distractible throughout evaluation Orientation: alert and oriented to person, place, time and situation Language: clear, coherent, and fluent Fund of Knowledge: fair Objective PHYSICAL EXAM & ADDITIONAL FINDINGS Please see most recent physical exam by attending physician. Reviewed ED vital signs and pertinent labs, imaging and other studies through Results Review Pain Screening: Is patient experiencing any pain? No Recommendations for management: Consider appropriate pain medications if indicated Nutritional Screening: No concerns RISK ASSESSMENT- Risk assessment is a dynamic process; it is possible that this patient's condition, and risk level,may change. This should be re-evaluated and managed over time as appropriate. Please call or re-consult us if additional assistance is needed in terms of risk assessment and management. If your team decides to discharge this patient, please advise the patient how to best access emergency psychiatric services, or to call 911, if their condition worsens or they feel unsafe in any way. Based on my current evaluation and risk assessment, patient is determined to be at: Low Risk of harm to self or others Risk Factors: physical illness/chronic pain Protective Factors: access to appropriate services, history of being able to cope with stressors without engaging in self-harm, identifies appropriate solutions to current problems, has future plans,and verbally contracts for safety GENERAL FORMULATION- "Based on my current evaluation and assessment of the patient, Yakov Keller is a 54 year old years old who presents with complaints of psychiatric evaluation. The patient's presentation and diagnosis is consistent with adjustment disorder, unspecified. Pt is quite tangential in thought process but she is interruptible and can answer appropriately when asked more specific, closed-ended questions. I am unclear if tangential thought process is patient's baseline (attempted to call for collateral) or perhaps related to a coping mechanism when pt is not able to hear full question (several times she would go off on a tangent that did not quite answer questions I had asked, but when I repeated and clarified she noted that she had not been able to hear my full question initially). However pt isnot acutely psychotic or manic at this time and denies SI, HI, is future- oriented and self-advocating. " 05/03 - pt more distractible and tangential on evaluation, initially appears more disjointed in thought process with difficulty conveying full ideas although sister was helpful in interpreting pt's worries (which pt agreed with). There is no formal diagnosis of autism, although some of pt's behaviors indicate a possible autism spectrum disorder diagnosis, and she did note that the pt repeatedly has difficulties with both transitions and sounds related to her partial hearing loss. Although pt is alert today, she does not recall behavior and seems surprised by it; sister describes her as "foggier" and primary team did note concern for worsening infection. Assessment & Plan DIAGNOSES: Primary Psychiatric Diagnoses: AMS, Adjustment disorder, unspecified PLAN/RECOMMENDATIONS/INTERVENTIONS: Inpatient psych admission is not recommended Medication recommendations: would recommend risperdal 0.5 mg TID for restlessness, agitation 2/2 AMS causing dangerous behavior (ripped out PICC line, aggressive towards nursing) - EKG on 04/23 with qtc of 447 ms, BMP and LFTs from 05/02 reviewed which indicate a mildly elevated AST (58 U/L) and Alk Phos (158 U/L) Non-Medication recommendations: Medical care per primary team. I reviewed and updated the [place] Suicide Screen and Suicide Safety Plan as clinically indicated Follow-Up Telepsychiatry C/L services: Will sign off for now. Please re-consult our service as necessary. Total time spent in encounter: 50 minutes total, including record review, clinical interview, discussion of impressions and recommendations, consultation/communication with relevant parties, and clinical documentation Impressions and recommendations were shared with the appropriate persons, including the patient to the extent that the patient is able to consent to treatment as well as understand and participate intreatment decision-making. Consultation recommendations were discussed with requesting physician/service. Thank you for involving us in the care of this patient. Please contact us with questions/concerns. Ann Armstrong MD * Timmy Aquino MD - 04/27/2024 12:39 PM EDTAssociated Order(s): THORACIC SURGERY CONSULT IP 5.CONSULT - Thoracic Surgery [facility] [id number] Name: Yakov Keller Location[place] [facility] Date: 04/27/2024 Time: 12:39 PM REQUESTING SERVICE: Med G REASON FOR CONSULT: left loculated pleural effusion HISTORY OF PRESENT ILLNESS: Yakov Keller is a 54 year old female for whom thoracic surgery is consulted for management recommendations of a left loculated pleural effusion. She was transferred from [facility] on 04/20 for definitivecare of a holo spinal ventral epidural abscess and is now now status post C3 to T1 and T7-T11 laminectomies for decompression and washout of the epidural abscess. Infectious disease has provided final recommendations for her OM / paravertebral abscess, and MSSA bacteremia. Notably since her admission she has been seen by psychiatry for an adjustment disorder and has verytangential thought and word salad / word finding difficulties so HPI is very limited. Yet she is able to communicate that she denies ever having any cough, shortness of breath, or pain with deep inspiration leading up to or during this hospitalization. HOSPITAL PROBLEM LIST: Principal Problem: Bacteremia due to Staphylococcus (POA: Yes) Active Problems: Constipation (POA: Yes) Epidural abscess (POA: Yes) Acute osteomyelitis (HCC) (POA: Yes) Acute hypoxemic respiratory failure (HCC) (POA: Unknown) Status post laminectomy (POA: Unknown) Urinary retention (POA: Unknown) Adjustment disorder (POA: Unknown) POA = Present On Admission PAST MEDICAL HISTORY: No past medical history on file. PAST SURGICAL HISTORY: Past Surgical History: Procedure Laterality Date ENDO DECOMPRESS SPINAL CORD W/LAMINOTOMY, CERVICAL N/A 04/22/2024 LAMINECTOMY DECOMPRESSION SPINAL CORD POSTERIOR CERVICAL performed by Bhanu Montero MD at [facility] ENDO DECOMPRESS SPINAL CORD W/LAMINOTOMY, THORACIC N/A 04/22/2024 LAMINECTOMY DECOMPRESSION SPINAL CORD POSTERIOR THORACIC performed by Bhanu Montero MD at [facility] REMOVE LUMBAR SPINE LAMINA, 3+ SEGS N/A 04/22/2024 LAMINECTOMY DECOMPRESSION SPINAL CORD POSTERIOR LUMBAR performed by Bhanu Montero MD at [facility] SOCIAL HISTORY: Social History Tobacco Use Smoking status: Never Smokeless tobacco: Never Vaping Use Vaping status: Never Used Substance Use Topics Alcohol use: Never Drug use: Never FAMILY HISTORY: No family history on file. ALLERGIES: Patient has no known allergies. ROS: Unable to respond: Confusion PHYSICAL EXAMINATION: Most Recent Vital Signs: BP: 145 mmHg/79 mmHg (04/27/24 1058) Pulse: 117 (04/27/24 1058) Resp: 18 (04/27/24 1058) Temp: 37 C (04/27/24 105) Temp Summary: Temp Min: 36.7 C (98.1 F) Max: 37.8 C (100 F) SpO2: 99 % (04/27/24 1058) O2 flow rate: 0 L/MIN (04/27/24 0800) Supplemental O2 Delivery: Room Air, None (04/27/241057) ECOG Performance Status: 1 = Restricted in physically strenuous activity, ambulatory and able to dowork of light nature Constitutional: no acute distress HEENT: normal: normocephalic, atraumatic; no masses, tenderness, or adenopathy Neck: supple, normal range of motion, no tracheal deviation, no stridor CV: normal rhythm, (+) tachycardic Chest: normal respiratory effort, lungs clear to auscultation and percussion, chest wall normal Abdomen: soft, nondistended Skin: warm, dry: Psych: confused, (+) disordered thought content LABS: Labs reviewed as indicated below: 04/21 + S Aureus blood culture, 04/23 blood culture preliminarily negative WBC down trending 04/24-04/27 from 26.7 --> 23.4, 20.2, and 18.9 today IMAGIN04/27/2024 CT scan: Chest; increase in size of left sided pleural effusion with loculation between fissure though the effusion is small. Unable to visualize on imaging if this effusion does communicateor extend from the paravertebral abscess IMPRESSION and PLAN: Left loculated pleural effusion --patient asymptomatic at this time with improving labs and finalized infectious disease plan --recommend observation at this time Patient was examined and was discussed with Dr. Taylor. Timmy Aquino MD Vascular Surgery PGY1 [facility] 04/27/2024 4:24 PM Associated attestation - Allen Taylor MD - 04/27/2024 4:48 PM EDT I saw and evaluated the patient today. I have reviewed the resident/fellow physician note and agree. Small residual left pleural effusion seen on CT imaging today, which was presumably obtained only as a follow-up exam to compare to outside CT imaging performed 04/18. In the interim, a CXR on 04/20 performed during this admission showed minimal residual fluid. No new fevers or sustained tachycardia. No new oxygen requirements. Leukocytosis is improving sinceneurosurgery performed drainage of the spinal abscess. Recommendations: No indications for thoracic surgical intervention. No indications for drainage of the small residual left pleural effusion. Would follow clinically and then consider repeat imaging only as needed. Call us back with any further questions. I spent a total of 45 minutes coordinating, documenting, and providing care for this patient excluding time spent in the performance of separately billed services or time spent by another provider/QHP. * Ann Armstrong MD - 04/25/2024 11:56 AM EDTAssociated Order(s): PSYCHIATRY CONSULT IP INITIAL PSYCHIATRY CONSULT NOTE Patient location: HOSPITAL. I was not in a hospital or clinic location. After connecting through [place], patient was identified by name and date of and/or wristband checked. Patient (or authorized legal tour sales representative) was then informed that this was a Telemedicine visit and was being conducted confidentially over secure lines. My office door was closed. No one else was in the room with me.. Patient acknowledged consent and understanding of privacy and security of the Telemedicine visit and gave permission to have a telemedicine presenter stay in the room in order to assist with the history and to conduct the exam as needed. I informed the patient that I have reviewed their record in [facility] and presented the opportunity for them to ask any questions regarding the visit today. The patient agreed to participate. Date of Consult: 04/25/2024 Subjective HISTORY OF PRESENT ILLNESS (HPI): The reason for psychiatric consultation is psychiatric evaluation - "54 year old female adm for epidural abscess, s/p laminectomies, continues to have word salad and tangential conversations, please evaluted for the personality disorder vs. depression for med recs." Pt has limited records in our system, although several notes from current hospitalization note a tangential thought process or odd af fect. Patient reports "I would not be surprised... they want to make sure I'm good." Pt with head turned towards her left side, unable to turn head to look at me. Per pt she has partial deafness and can only hear out of her right ear (which was facing teledoc cart); several times throughout the interviewwhen I redirected patient and reasked questions she had not quite appropriately answered, she stated that it was difficult to hear me and there may have been some level of communication difficulty affecting evaluation. Particularly when I asked her to tell me the days of the week backwards, she kept telling me that I should "move on" and assess her as being able to do the test by default as she could not hear the whole question. She was tangential in her thought process, but she did not demonstrate word salad. I did need to interrupt her at times and ask her more closed-ended questions, but she was able to be interrupted and answered those questions quickly and appropriately. She denied changes to her mood and stated that she was able to sleep with a combination of melatonin and benadryl,stated that she trusted Dr. Diaz to give her the correct medications to help her. Denied SI, HI, and AVH. Orientation: April 25 or 2023; [facility] Attention: Cannot tell me the days of the week backwards and repeatedly asks me to skip this question - but keeps repeating that she cannot hear the whole questions Memory: Able to recall 3/3 words Attempted to call listed friend Mariangel Sullivan with pt's permission but call went straight to voicemail. PSYCHIATRIC REVIEW OF SYSTEMS: comprehensive quantitative ROS was undertaken and noted in HPI as above PAST PSYCHIATRIC HISTORY Denies all prior psychiatric history (inpatient, outpatient, medications) I have reviewed the patient's allergies, past history, and medications. MENTAL STATUS EXAM (MSE) Appearance: dressed in hospital garb Attitude: cooperative Eye Contact: poor - head turned to left, reports unable to turn head back towards teledoc cart Behavior: no psychomotor disturbance Impulse Control: fair Speech: normal pitch, normal rate, and normal volume; somewhat hyperverbal Mood: euthymic Affect: constricted, somewhat anxious appearing Thought Process: tangential Thought Content: Denies AVH, no RIS or overt delusions Suicidality and Homicidality: No Ideation Insight: limited Judgment: limited Memory: fair Attention/Concentration: appears fair to somewhat distractible throughout evaluation Orientation: alert and oriented to person, place, time and situation Language: clear, coherent, and fluent Fund of Knowledge: fair Objective PHYSICAL EXAM & ADDITIONAL FINDINGS Please see most recent physical exam by attending physician. Reviewed ED vital signs and pertinent labs, imaging and other studies through Results Review Pain Screening: Is patient experiencing any pain? No Recommendations for management: Consider appropriate pain medications if indicated Nutritional Screening: No concerns RISK ASSESSMENT- Risk assessment is a dynamic process; it is possible that this patient's condition, and risk level,may change. This should be re-evaluated and managed over time as appropriate. Please call or re-consult us if additional assistance is needed in terms of risk assessment and management. If your team decides to discharge this patient, please advise the patient how to best access emergency psychiatric services, or to call 911, if their condition worsens or they feel unsafe in any way. Based on my current evaluation and risk assessment, patient is determined to be at: Low Risk of harm to self or others Risk Factors: physical illness/chronic pain Protective Factors: access to appropriate services, history of being able to cope with stressors without engaging in self-harm, identifies appropriate solutions to current problems, has future plans,and verbally contracts for safety GENERAL FORMULATION- Based on my current evaluation and assessment of the patient, Yakov Keller is a 54 year old yearsold who presents with complaints of psychiatric evaluation. The patient's presentation and diagnosis is consistent with adjustment disorder, unspecified. Pt is quite tangential in thought process butshe is interruptible and can answer appropriately when asked more specific, closed-ended questions.I am unclear if tangential thought process is patient's baseline (attempted to call for collateral)or perhaps related to a coping mechanism when pt is not able to hear full question (several times she would go off on a tangent that did not quite answer questions I had asked, but when I repeated and clarified she noted that she had not been able to hear my full question initially). However pt is n ot acutely psychotic or manic at this time and denies SI, HI, is future-oriented and self-advocating. Assessment & Plan DIAGNOSES: Primary Psychiatric Diagnoses: Adjustment disorder, unspecified PLAN/RECOMMENDATIONS/INTERVENTIONS: Inpatient psych admission is not recommended Medication recommendations: No additional medications at this time Non-Medication recommendations: Medical care per primary team. I reviewed and updated the [place] Suicide Screen and Suicide Safety Plan as clinically indicated Follow-Up Telepsychiatry C/L services: Will sign off for now. Please re-consult our service as necessary. Total time spent in encounter: 37 minutes total, including record review, clinical interview, discussion of impressions and recommendations, consultation/communication with relevant parties, and clinical documentation Impressions and recommendations were shared with the appropriate persons, including the patient to the extent that the patient is able to consent to treatment as well as understand and participate intreatment decision-making. Consultation recommendations were discussed with requesting physician/service. Thank you for involving us in the care of this patient. Please contact us with questions/concerns. Ann Armstrong MD * Anila Leal MSW - 04/23/2024 12:13 PM EDTAssociated Order(s): CARE MANAGEMENT CONSULT IP Please see ancillary notes. CM to continue to follow throughout hospitalization. Thanks * Raven Skinner OTR/Eileen - 04/23/2024 11:18 AM EDTAssociated Order(s): ADULT OCCUPATIONAL THERAPY CONSULT IP; ADULT OCCUPATIONAL THERAPY CONSULT IP GENERAL EVALUATION - Occupational Therapy [address] [id number] Name: Yakov Keller [place] [facility] [place] Date: 04/23/2024 Time: 2:06 PM Yakov Keller is a 54 year old female. Patient Status: Inpatient Insurance: Payor: PENDING MEDICAID Plan: PENDING MEDICAID Product Type: *No Product type* Patient Seen: at bedside, nursing cleared patient for therapy Patient Identified By: Name, ID Band and Date Diagnosis: s/p C3-T1, T7-11 laminectomies (04/23/241117) Status of treatment: Evaluation completed (04/23/241117) Orders: OT evaluation and treatment;OT OOB (04/23/241117) Weight Bearing Status: Weight bearing as tolerated (04/23/241117) Precautions: Alarms;Falls;Safety;Spine Precautions (04/23/241117) Total Treatment Time: 38 (04/23/241117) Past Medical History: No past medical history on file. Past Surgical History: No past surgical history on file. Social History/Disposition Lives with: Alone (04/23/241116) Assistance available: Yes (04/23/241116) Dwelling type: Apartment (04/23/241116) Entry steps: None (04/23/241116) Inside steps: 10 - 15 (apartment is in basement) (04/23/241116) Bedroom location: Basement (04/23/241116) Bath location: Basement (04/23/241116) Prior Level of Function Reported by: Patient (04/23/241117) Ambulation: Ambulatory without device (04/23/241117) Grooming: Independent (04/23/241117) Bathing: Independent (04/23/241117) Dressing: Independent (04/23/241117) Feeding: Independent (04/23/241117) Toileting: Independent (04/23/241117) Meal Prep: Independent (04/23/241117) Homemaking: Independent (04/23/241117) Pain: Pt reported back pain, however did not rate pain level Observations Consciousness: Alert (04/23/241117) Orientation: Oriented times 4 (04/23/241117) Cognitive Limitations: Processing;Problem solving;Attention to task;Impulsivity (04/23/241117) Psychosocial: Patient can communicate basic needs (04/23/241117) Sitting posture: Forward head;Rounded shoulders (04/23/241117) Standing posture: Forward head;Rounded shoulders (04/23/241117) Safety awareness: Needs cueing supervision. (04/23/241117) Other Findings Endurance: Functional activity;Fair (04/23/241117) Coordination: LUE;RUE;Gross motor;Fine motor;Intact (04/23/241117) Current Functional Status: Bilateral Upper Extremity Range of Motion: WFL (04/23/241117) Strength Assessment: (3+/5) (04/23/241117) Self Care Able to provide self care: Yes (04/23/241117) Grooming: Supervision (Please comment) (04/23/241117) Dressing Upper Body: Minimal Assistance (gown) (04/23/241117) Lower Body: Dependent (socks) (04/23/241117) Functional Ambulation Assistive Device: Rolling walker (04/23/241117) Distance in feet:: 5 (04/23/241117) Level of Assistance: Minimal Assistance (x2) (04/23/241117) Bed Mobility Supine-Sit: Moderate Assistance (x2) (04/23/241117) OT Transfers Sit-Stand: Minimal Assistance (x2) (04/23/241117) Stand-Sit: Minimal Assistance (x2) (04/23/241117) Bed-Chair: Minimal Assistance (x2) (04/23/241117) Balance Sit (Static): Fair (04/23/241117) Sit (Dynamic): Fair (04/23/241117) Stand (Static): Poor (04/23/241117) Stand (Dynamic): Poor (04/23/241117) Alarm Status Patient positioned in: Chair (04/23/241117) With: Pressure pad alarm intact and functioning and call peres in reach (04/23/241117) Patient and Family Goals: to get well Patient Education Education Topic: Role of OT;Plan of care goals (04/23/241117) Review of Precautions: Safety;Fall (04/23/241117) Barriers to learning: Medical status (04/23/241117) Preferred learning method: Combination (04/23/241117) Treatment Provided: Therapeutic Activity: 23 minutes Evaluation Moderate Complexity 15 minutes - 35818: Patient was cooperative during treatment session. Moderate complexity evaluation performed and 3-5 activity limitations were identified, including ADL deficit, functional mobility deficit, bed mobility deficit, decreased strength, decreased endurance, and impaired balance. Minimal or moderate modification of the functional task was necessary to complete the evaluation. Deficits Requiring O.T. Treatment: Deficits requiring O.T. treatment needs: ADL/self-care;Balance;Endurance;Functional mobility;Safety;Upper extremity strength;Weakness (04/23/241117) Goal Time Frame: 10 visits Assessment: Pt is a 54 year old female admitted [place] [facility] [place]/p C3-T1, T7-11 laminectomies. Prior to admission, pt lived alone where she was independent with ADLs and completed mobility without a device. Pt is a poor historian and is tangential with conversation. Pt required maximal cues to redirect patient to task and needed [id number] cues, as she was unable to follow multi-step commands. Pt supine in bed upon therapist arrival. Pt was educated on spinal precautions, and pt verbalized understanding, however she required frequent reminders throughout session. Pt completed bed mobility with Mod Ax2 to right trunk and advance BLEs to EOB. Pt completed UE dressing with Min A and dependence for LE dressing, secondary to decreased balance and poor functional reach. Pt completed sit to stand transfer from EOB with Min Ax2. Pt completed mobility in room and hallway using Rw with Min ax2 for a short distance, secondary to patient having decreased balance and poor ability to motor plan with moving BLEs. Pt also required cues to manage RW during mobility. Pt would benefit from skilled OT services in order to increase independence and facilitate a safe transition to next level of care. Please consider post-acute care services which may include home health, senior living, outpatient therapy or inpatient rehabilitation. The level of care will be determined in collaboration with patient, family/caregiver and care team members. Goals: BUE Strength/ROM Increase BUE strength to at least one muscle grade. ADLs Increase UE dressing to supervision. Increase UE bathing to supervision. Increase LE dressing to Mod A. Increase LE bathing to Mod A. Increase toileting tasks to Min A Increase grooming and basic hygiene tasks while in stance at sink with CGA. Bed Mobility/Functional Mobility Increase bed mobility to Min A. Increase functional mobility using the least restrictive device to CGA. Functional Transfers Increase functional sit to stand transfers during ADLs to CGA. Increase transfers to toilet to CGA. Increase transfers from bed to chair with CGA. Balance Increase sitting balance at EOB to fair+ during ADLs. Increase standing balance to fair- during ADLs. Treatment Plan: Safety, Bed mobility training, Functional Ambulation, Transfer training, Upper extremity strengthening, Balance activities, ADL training , and Endurance Anticipated Frequency (on eval): 3 to 5 times per week (04/23/241117) AM-PAC Help From Another Person Eating Meals: A little (04/23/241117) Help From Another Person Taking Care of Personal Grooming: A little (04/23/241117) Help From Another Person To Put On/Take Off Upper Body Clothing: A little (04/23/241117) Help From Another Person To Put On/Take Off Lower Body Clothing: A lot (04/23/241117) Help From Another Person Toileting: A lot (04/23/241117) Help From Another Person Bathing: A lot (04/23/241117) OT AM-PAC Score: 15 (04/23/241117) OT AM-PAC t-Scale Score: 34.69 (04/23/241117) HLM (Highest Level of Mobility) Goal: Level 4 move to chair/commode (04/23/241116) A portion of this AM-PAC assessment not scored based on functional assessment, rather clinical decsion making utilized based on current findings and/or prior level of function. Please refer to futureAM-PAC calculations of functional ability as they become available. * Deyanira Montiel, DPT - 04/23/2024 11:17 AM EDTAssociated Order(s): ADULT PHYSICAL THERAPY CONSULT IP; ADULT PHYSICAL THERAPY CONSULT IP GENERAL EVALUATION - Physical Therapy [address] [address] Name: Yakov Keller [place] [facility] [place] Date: 04/23/2024 Time: 11:17 AM Yakov Keller is a/an 54 year old female. Patient Status: Inpatient Insurance: Payor: PENDING MEDICAID Plan: PENDING MEDICAID Product Type: *No Product type* Patient Seen: at bedside, nursing cleared patient for therapy Patient Identified By: Name, ID Band and Date Diagnosis: discitis, OM of thoracic spine; s/p C3-T1, T7-11 laminectomies for decompression and washout of epidural abscess on 04/22/24 (04/23/241116) Status of treatment: Evaluation completed (04/23/241116) Orders: PT evaluation and treatment (04/23/241116) Weight Bearing Status: Weight bearing as tolerated (04/23/241116) Precautions: Alarms;Falls;Safety;Spine precautions (KRISTAL drains x 3) (04/23/241116) Total Treatment Time--free text: 38 (04/23/241116) Past Medical History: No past medical history on file. Past Surgical History: No past surgical history on file. Subjective: Pt agreeable to PT encounter. Social History/Disposition Lives with: Alone (04/23/241116) Assistance available: Yes (04/23/241116) Dwelling type: Apartment (04/23/241116) Entry steps: None (04/23/241116) Inside steps: 10 - 15 (apartment is in basement) (04/23/241116) Bedroom location: Basement (04/23/241116) Bath location: Basement (04/23/241116) Prior Level of Function Reported by: Patient (04/23/241116) Ambulation: Ambulatory without device (04/23/241116) Devices at home: No device (04/23/241116) Observations Consciousness: Alert (04/23/241116) Orientation: Oriented times 4 (04/23/241116) Psychosocial: Patient can communicate basic needs;Patient can converse in a social setting (04/23/241116) Other Findings: Yes (04/23/241116) Findings: Light touch sensation;Proprioception;Coordination;Edema;Tone (04/23/241116) Light Touch Sensation Results: Intact;LLE;RLE (04/23/241116) Proprioception Results: Intact;LLE;RLE (04/23/241116) Coordination Results: Intact;LLE;RLE (04/23/241116) Edema Results: Intact;LLE;RLE (04/23/241116) Tone Results: Intact;LLE;RLE (04/23/241116) Sitting Posture: Forward head;Rounded shoulders (04/23/241116) Standing Posture: Forward head;Rounded shoulders (04/23/241116) Pain: Patient has complaints of pain. Pain located in back. 01/30 Staff Notified Range of Motion Range of Motion: WFL (B/L LE active ROM) (04/23/241116) Strength Assessment Strength Assessment: (L LE 3+/5; R LE 4-/5) (04/23/241116) P.T. Bed Mobility Supine-Sit: Moderate Assistance (x2 (supine>sit via L sidelying, log roll technique)) (04/23/241116) Transfers Sit-Stand: Minimal Assistance (x2) (04/23/241116) Stand-Sit: Minimal Assistance (x2) (04/23/241116) Ambulation: Distance ambulated (feet): 5 Assistive Device: Rolling walker Assist: Minimal Assistance x2 Balance Sit (Static): Fair (-) (04/23/241116) Sit (Dynamic): Poor (+) (04/23/241116) Stand (Static): Poor (+) (04/23/241116) Stand (Dynamic): Poor (04/23/241116) Patient and or Family Goal(s): to get well and to return home Patient Education Review of Precautions: Safety;Spine Precautions;Fall (04/23/241116) Safety Awareness: Patient does not verbalize insight of current deficits;Patient does not demonstrates carryover of insight during functional tasks;Patient can communicate basic needs;Needs cueing supervision (04/23/241116) Preferred learning method: Combination (04/23/241116) Barriers to learning: Medical Status;Medication;Cognition;Hearing (04/23/241116) Method of Education: Verbalized to patient;Demonstrated to patient;Patient demonstrated task (04/23/241116) Topic of Education: Safety with mobility, Goals/plan of care, Use of assistive device, Fall prevention, and spinal precautions Method of Education: Verbal discussion and explanation provided to patient: had reduced level of understanding due to cognitive status Demonstrated the above task to patient: had reduced level of understanding due to cognitive status Treatment Provided: Therapeutic Activities 25 minutes: bed mobility training transfer training Review of spinal precautions Evaluation Moderate Complexity 13 minutes - 31173: Patient was cooperative and pleasant during treatment session. Moderate complexity evaluation performed and 1-2 personal factors or comorbidities were identified that will impact plan of care, including multiple steps at home, lives alone at home, and cognitive status. Patient presents with limitations in range of motion, strength, bed mobility, transfers, gait, balance, endurance, and safety, which will impact plan of care. These limitations will be addressed by the goals set for this patient. Alarm Status Patient positioned in: Chair (04/23/241116) With: Pressure pad alarm intact and functioning and call peres in reach (04/23/241116) Following session patient seated OOB in chair with chair alarm activated. Chair alarm (did not havecord to plug into call peres system and/or room did not have port to plug cord into call peres system). Patient's nurse was made aware. Treatment Status: Treatment at bedside (04/23/241116) Goals: Demonstrate bed mobility: sit<>supine and rolling B/L with modified independence Demonstrate transfers: sit<>stand with modified independence Ambulation: at least 150 feet with use of RW with modified independence Demonstrate stairs: at least 4 stairs with supervision Increase B/L LE strength by 1/2 MMT grade Improve balance to fair+ sitting/standing Increase safety: with all functional mobility Time Frame: 10 visits Assessment: Pt is a 54 year old female presenting to [facility] with medical diagnosis of discitis, OM of thoracic spine; s/p C3-T1, T7-11 laminectomies for decompression and washout ofepidural abscess on 04/22/24. Pt educated on role of PT in the acute care setting. Pt agreeable to PT initial evaluation. Pt received lying supine in bed, HOB elevated, RN present at bedside at the start of session. Pt reports that prior to current admission, she was independent with mobility. Pt reported pain in back with mobility. Pt participated in assessment of B/L LE strength via MMT, B/L LE ROM, bed mobility, transfers, gait. Provided pt education regarding spinal precautions 3 times throughout session; however, pt presents with difficulty with recall. Pt demonstrated bed mobility with moderate assistance x 2 for supine>sit transition via L sidelying (log roll technique). Pt sat EOBx ~15 minutes to improve upon seated posture, tolerance to upright positioning, LE positioning on the floor, anterior weight shifting to active core. Pt demonstrated sit<>stand transfers with minimal assistance x 2. Pt ambulated 5 feet with the use of RW with minimal assistance x 2. Pt demonstrated significantly increased GILBERT, difficulty with RW management, required increased time for processing/sequencing, difficulty with weight shifting to initiate SLS, flat foot initial contact B/L, posterior lean, decreased quad stability in CKC. Distance limited by fatigue and back discomfort. Pt required verbal cues for safety/technique during encounter. Pt relieved sitting in recliner, chair alarm activated with call peres and all other needs within reach. Physical therapy diagnoses include decreased B/L LE strength (L weaker than R), decreased endurance, gait and balance impairments, decreased functional mobility and stability status, decreased safety awareness with mobility. Pt will benefit from skilled PT services throughout current admission to maximize level of function. Please consider post-acute care services which may include home health, senior living, outpatient therapy or inpatient rehabilitation. The level of care will be determined in collaboration with patient, family/caregiver and care team members. Deficits requiring P.T. treatment needs: Safety;Mobility;Balance;Endurance;Range of motion;Weakness;Lower extremity strength (04/23/241116) Equipment Needs: Treatment Plan: Bed mobility training, Transfer training, Gait training, Elevation training, ROM exercises, Strengthening exercises, Balance activities, and Educate on safety with mobility Anticipated Frequency (on eval): 3 to 5 times per week (04/23/24 111) AM PAC Score with Stairs: 12 A portion of this AM-PAC assessment not scored based on functional assessment; rather clinical decision making utilized based on current findings and/or prior level of function. Please refer to future AM-PAC calculations of functional ability as they become available. * Sharona Hill DO - 04/22/2024 11:24 AM EDT NEUROLOGICAL SURGERY CONSULT NOTE [facility] [address] Name: Yakov Keller [place] [facility] A460[place] Date: 04/22/2024 Time: 11:24 AM Requesting service: Hospital Medicine Reason for consult: "epidural absecc" HISTORY OF PRESENT ILLNESS: Yakov Keller is a 54 year old female patient that presents to our service due to ventral epiduralspinal abscess from skull base to upper lumbar spine and dorsal epidural spinal abscess in the lower lumbar spine. Patient was being worked up for constipation and bloating at an outside hospital. Helabs were suspicious for infectious process and sepsis work up revealed paravertebral phlegmon/abscess around T8-9. Blood cx were positive for staph aureus at that time. She has been having difficulty with ambulation. Upon questioning, patient is unable to describe if she is having any pain, but rather discomfort in her abdomen when she sits up due to it being bloated. Denies nuchal rigidity when asked to flex her chin to chest. Unable to express explicitly what symptomology she has other than the feeling of constipation and distention in her abdomen. She is no code, but states "do what you need to do, just no resuscitation if I code in the OR." PAST MEDICAL HISTORY: No past medical history on file. PAST SURGICAL HISTORY: No past surgical history on file. SOCIAL HISTORY: Social History Socioeconomic History Marital status: Single Spouse name: Not on file Number of children: Not on file Years of education: Not on file Highest education level: Not on file Occupational History Not on file Tobacco Use Smoking status: Never Smokeless tobacco: Never Vaping Use Vaping status: Never Used Substance and Sexual Activity Alcohol use: Never Drug use: Never Sexual activity: Not on file Other Topics Concern Not on file Social History Narrative Not on file Social Determinants of Health Financial Resource Strain: Not on file Food Insecurity: Not on file Transportation Needs: Not on file Social Connections: Unknown (04/18/2024) Social Connections How often do you feel lonely or isolated from those around you? (Adult - for ages 18 years and over): Not on file Housing Stability: Not on file Social History Substance and Sexual Activity Drug Use Never FAMILY HISTORY: No family history on file. MEDICATIONS: Current Medications - Prior to This Encounter Medication Sig Last Dose Discont. Multivitamin Adult Oral Tablet Take 1 Tablet by mouth in the morning. ALLERGIES: Review of patient's allergies indicates: No Known Allergies REVIEW OF SYSTEMS: As per HPI PHYSICAL EXAMINATION: Vital signs over last 24 hours: Systolic BP: Most Recent Systolic BP Av.8 mmHg Min: 127 mmHg Max: 157 mmHg Temperature: Most Recent Temperature Av.7 C Min: 36.78 C Max: 38.28 C Pulse: Pulse Avg: Pulse Av.8 Min: 89 Max: 102 Respirations: Resp Av.6 Min: 16 Max: 24 SpO2: SpO2 Av.6 % Min: 94 % Max: 100 % General Exam: Constitutional: Appearance - No acute distress, well nourished Head and face: normocephalic Eyes: normal lids, normal sclera and normal conjunctiva Neck: supple, symmetrical Respiratory: normal effort, clear to auscultation bilaterally Cardiovascular: normal heart sounds, regular rate and rhythm Abdomen: no pain upon palpation Skin: no rashes, lesions, or ulcers noted Psychiatric: normal affect NEUROLOGIC EXAMINATION: Revised [place] Coma Scale (GCS-P): Eyes Open: 4 = spontaneous Best Verbal Response: 5 = verbally appropriate for age Best Motor Response: 6 = obeys commands appropriate for age Coma Score: 15 Mental status: Alert, oriented to time, place and person C5 C8 C5-6 C7 C6 C7 T1 Delt Bone Char Kiln Tender Bi Tri WE WF FAbd BR Ami Drift RUE 5 5 5 5 - - - - - - LUE 5 5 5 5 - - - - - - L2 L3 L4 L5 S1 L2-4 S1-2 Hip F Kn E DF EHL PF Pat Ach Plantar Clonus RLE 5 5 5 5 5 2+ - Down-going mute LLE 5 5 5 5 5 2+ - Down-going mute appropriate muscular bulk/tone SILT throughout, no level LABS: Chemistry: Lab Results Component Value Date/Time BUN 16 04/21/2024 07:49 AM CREAT 0.6 04/21/2024 07:49 AM NA 140 04/21/2024 07:49 AM POTASSIUM 3.7 04/21/2024 07:49 AM CO2 26 04/21/2024 07:49 AM Coagulation studies: No results found for: "PATINR", "INR" Blood count: Lab Results Component Value Date/Time WBC 31.37 (H) 04/21/2024 07:56 AM HGB 10.7 (L) 04/21/2024 07:56 AM HCT 32.1 (L) 04/21/2024 07:56 AM PLT 274 04/21/2024 07:56 AM IMAGING STUDIES: My Interpretation of Current Images: MRI spine: ventral epidural spinal abscess from skull base to upper lumbar spine and dorsal epidural spinal abscess in the lower lumbar spine, enhancing intradural extramedullary lesion at T3-4 levels c/f meningioma. 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 Present on admission: Body mass index is 27.44 kg/m. Patient Active Problem List Diagnosis Bacteremia due to Staphylococcus Spondylosis of thoracic region without myelopathy or radiculopathy Constipation Epidural abscess Acute osteomyelitis (HCC) RECOMMENDATIONS: Patient will be taken to OR for emergent evacuation of the epidural spinal abscess Please obtain MRI brain with and without Keep NPO Hold AC/AP Get Type and screen, coags Case was discussed with Dr. Montero, attending neurosurgeon. Sharona Hill DO Neurosurgery PGY1 Associated attestation - Bhanu Montero MD - 04/22/2024 2:36 PM EDT I saw and evaluated the patient today. I have reviewed the resident/fellow physician note and agree. I was called by 1 of my Orthopedic Surgery colleagues regarding this patient. She was apparently admitted to the medicine team some days ago when the orthopedic spine surgery service was on-call. Shepresented to an outside facility on April 18 for evaluation of a possible spine infection. This was after an ED visit on April 15. On admission she was tachycardic, with a left- sided pleural effusion, white blood cell count 27, and elevated inflammatory markers with ESR of 78 and CRP of 51. Imaging at that point demonstrated some paravertebral phlegmon at T8-T9. Subsequent workup demonstrated MSSA bacteremia with paravertebral abscesses. She has been initiated on antibiotics per the Infectious Disease service including scheduled Ancef. She was finally able to undergo MRI which appears to demonstrate a enhancing multilevel fluid collection, presumably epidural abscess, ventral to the cord. 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 Because of the presence of the intradural lesion my Orthopedic Surgery colleagues did request the involvement of Neurosurgery. I evaluated the patient. She has a quite an unusual affect but as best I can tell she is without obvious neurologic deficit, to include weakness, or hyperreflexia. She denies any sensory level. She was however quite uncomfortable appearing with rather severe nuchal rigidity as well as axial neck and back pain; and she was unable to sit up due to the exacerbation of axial neck and back pain. Most recent white blood cell count is 31. She was 2 positive cultures with MSSA. I did have a long discussion with both my colleagues in Orthopedic spine surgery as well as the medicine team. And subsequently I had a long discussion regarding the scenario with the patient. this most likely represents an extensive epidural abscess mostly ventrally, given the elevation of white count, fevers, and elevation inflammatory markers. The source is not entirely clear. 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 The abscess is most pronounced in the cervical spine although it extends all the way into the lumbar spine. She continues to have persistently elevated white count it was quite severe up to 31, and I thinkshe has signs and symptoms of nuchal rigidity and axial back pain that are coming from the epiduralabscess. I think she needs decompression of the cord and source control. We did discuss the effectsof direct compression from the mass effect as well as potential venous stasis from the presence of the purulent material all the cord. Given that she was neurologically intact, I do not think it is fe asible nor necessary to decompress the entire spine with laminectomies as this would certainly leadto any iatrogenic instability. I think the most prudent course is to decompress the most concerninglevels and treat the remainder with antibiotic therapy as this would allow penetration into the abscess and a route for egress and drainage. Certainly she could require additional surgery and I did explain this in detail. Right now, although I have no prior imaging for comparison. 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 I would like to continue to monitor this for now, and I would be very reluctant to address it given the need to open the dura and then place her at risk for meningitis. I did explain this in detail with the patient. At T8-T9 there is some enhancement within the vertebral bodies as well as a focus of enhancement within the T10 vertebral body. I am not exactly sure what this represents, abscess versus some other etiology such as malignancy as indicated in the radiologic interpretation, but I think the most likely candidates are infectious in nature. I donot think these lesions are imminently surgical, and I do not see any obvious destruction or evidence of biomechanical instability on the CT scan with which she arrive. Nonetheless she does have quite substantial epidural compression and cord deformation at these levels. I did review all of the outside imaging and I counted her vertebral levels. She was seems to have anormal configuration of 7 cervical vertebrae, 12 rib-bearing thoracic vertebrae, and 5 lumbosacral vertebrae. She also has multiple head CTs as well as the enhanced CT getting the neck and the brain including the posterior fossa up to about the foramen of Monro. I see no obvious intracranial lesionalthough eventually she would benefit from an MRI of the brain to rule out extension elsewhere. There does not seem to be any extension from the cervical spine into the posterior fossa at least on the imaging we have obtained to this point. She did obtain the brain MRI prior to heading to the holding area and I did review it. There was no radiologic interpretation yet but I see no obvious intracranial abscess. I think the areas of worse compression or within the cervical spine and upper thoracic spine, particularly at C7-T1. And then again there was rather severe compression in the lower thoracic spine at the areas of the bony involvement, roughly T8-T10. I think the most prudent course is therefore decompression of these areas alone, without fusion. This would be followed by aggressive antibiotic therapy and close observation for any additional surgical intervention. Plan for skip an alternating laminectomies from C3-T1, as well as laminectomies from T8-T10, with extension or other procedures as indicated intraoperatively. I would plan to use intraoperative ultrasonography to guide surgical decision-making. I did explain to the patient that I would use ultrasonography and direct intraoperative feedback regarding the consistency of the abscessto direct care. She voices understanding and requests to proceed. All questions answered. Once again, she does have a quite odd affect and no friends or family members are immediately present. She was very clear that she would like to be a no code should she have a cardiac arrest but she does want the surgery. I was at the bedside with the nursing staff in the holding area as well as the anesthesia team discussing all of this in detail with the patient. Plan to proceed with laminectomy as outlin ed. All questions answered. Bhaun Oliva Neurosurgery This document was dictated using voice recognition software. Please excuse any errors. A total of 70 minutes were spent in review of the patient's charts, direct assessment of the patient during bedside rounds with the resident/PA team, discussion of the clinical scenario with the patient and/or family members, formulating a treatment plan, conveying the treatment plan to all other relevant parties including co-managing services, coordinating/effecting the treatment plan, and documenting the treatment plan. Review of the patient's chart includes review of all relevant notes, vital signs, laboratory investigations, imaging studies, medications, past medical history/medical comorbidities, and all other factors related to the current presenting condition. * Shiv Cespedes, DO - 04/21/2024 9:55 AM EDTAssociated Order(s): INFECTIOUS DISEASE CONSULT IP Images from the original note were not included. CONSULT - Infectious Disease [address] [address] Name: Yakov Keller [place] [facility] [place] Date: 04/21/2024 Time: 9:55 AM REQUESTING SERVICE: IM CLINICAL TEAM: Infectious Diseases Team 2 REASON FOR CONSULT: "Staph bacteremia, T8-T9 OM/discitis/epidural abscess " HPI: The patient was admitted as a transfer from [facility] on 04/20/2024 for constipation. Workup revealed thoracic level OM/paravertebral abscess. The patient reports no actual back pain, just constipation. She reports that she had been scratching an area of her upper back prior to admission but is not awareof any other portals of entry. She denies any indwelling FBs. ALLERGIES: Patient has no known allergies. PAST MEDICAL HISTORY: As above PAST SURGICAL HISTORY: Denies any previous spine surgeries SOCIAL HISTORY: Social History Tobacco Use Smoking status: Never Smokeless tobacco: Never Vaping Use Vaping status: Never Used Substance Use Topics Alcohol use: Never Drug use: Never FAMILY HISTORY: Noncontributory ROS: As reviewed in HPI; a complete ROS was otherwise negative PHYSICAL EXAMINATION: Most Recent Vital Signs: BP: 135 mmHg/87 mmHg (04/21/24625) Pulse: 91 (04/21/24625) Resp: 18 (04/21/24625) Temp: 36.28 C (04/21/24625) Temp Summary: Temp Min: 36.3 C (97.3 F) Max: 38.9 C (102 F) SpO2: 97 % (04/21/24625) O2 flow rate: 2 L/MIN (04/21/24 07) Supplemental O2 Delivery: Nasal Cannula (08/30/24 0700) Vital Signs Last 24 Hours: Systolic BP: Most Recent Systolic BP Av.6 mmHg Min: 120 mmHg Max: 146 mmHg Temperature: Most Recent Temperature Av.8 C Min: 36.28 C Max: 38.89 C Pulse: Pulse Av.8 Min: 91 Max: 115 Respirations: Resp Av.2 Min: 16 Max: 18 SpO2: SpO2 Av % Min: 93 % Max: 97 % Vitals: as above Gen/Constitution: appears at stated age, NAD, nontoxic, lateral recumbent Head: AT, NC, no supplemental oxygen in place Eyes: sclera anicteric, no conjunctival injection ENT: no purulent rhinorrhea, trachea midline Card: warm, well-perfused Resp: not tachypneic, nml effort, symmetric chest rise, no accessory muscle use GI: abdomen soft, NT, no rigidity, no guarding Derm/skin: not diaphoretic, no rash, no jaundice MSK: no spinous process tenderness, no joint effusions Vasc: IV w/o erythema/purulence Neuro: alert, oriented, speaking in full sentences, speech intelligible LABS: Labs reviewed as indicated below: (Reviewed; most pertinent / most recent listed below; see EMR for further info) Recent Results (from the past 24 hour(s)) BASIC METABOLIC PANEL Collection Time: 04/20/24 9:27 PM Result Value Ref Range BUN 16 6 - 20 mg/dL Creatinine 0.6 0.5 - 1.0 mg/dL Estimated Glomerular Filtration Rate >90 >=60 mL/min Sodium 139 135 - 146 mmol/L Potassium 3.4 (L) 3.5 - 5.1 mmol/L Chloride 102 98 - 107 mmol/L CO2 24 22 - 32 mmol/L Anion Gap 13 7 - 15 mmol/L Glucose 110 70 - 120 mg/dL Calcium 8.2 (L) 8.4 - 10.2 mg/dL MRSA SCREEN, PCR Collection Time: 04/21/24 12:29 AM Result Value Ref Range MRSA PCR Result Negative Negative CBC Collection Time: 04/21/24 7:56 AM Result Value Ref Range WBC 31.37 (H) 4.00 - 10.80 K/uL RBC 3.53 3.85 - 5.15 M/uL HGB 10.7 (L) 12.0 - 15.3 g/dL HCT 32.1 (L) 36.0 - 45.2 % MCV 90.9 81.5 - 97.5 fL MCH 30.3 27.0 - 34.0 pg MCHC 33.3 32.0 - 36.0 g/dL RDW 15.4 11.5 - 15.5 % PLT 274 140 - 400 K/uL MPV 10.3 6.6 - 11.1 fL nRBCs 0 <=0 /100 WBCs DIFFERENTIAL, TECHNOLOGIST REVIEW Collection Time: 04/21/24 7:56 AM Result Value Ref Range WBC 31.37 (H) 4.00 - 10.80 K/uL Neutrophils % 84.0 (H) 40.0 - 75.0 % Lymphocytes % 7.0 (L) 18.0 - 42.0 % Monocytes % 5.0 1.0 - 11.0 % Eosinophils % 1.0 0.0 - 6.0 % Metamyelocytes % 1.0 (H) <=0.0 % Myelocytes % 2.0 (H) <=0.0 % Absolute Neutrophils 26.35 (H) 1.80 - 7.70 K/uL Absolute Lymphocytes 2.20 1.00 - 4.80 K/uL Absolute Monocytes 1.57 (H) 0.00 - 1.10 K/uL Absolute Eosinophils 0.31 0.00 - 0.70 K/uL Absolute Metamyelocytes 0.31 (H) <=0.00 K/uL Absolute Myelocytes 0.63 (H) <=0.00 K/uL MICROBIOLOGY DATA: (Reviewed; most pertinent / most recent listed below; see EMR for further info) Recent Cultures (2 Weeks) No lab values to display. [address], [place] [address] / Director: Julio Cesar Singh M.D. Clinical Laboratory Report Name: YAKOV KELLER Acct: [id number] [place]: [place] : 1970 [facility] [place] 04/18/[place] Age: 54 Sex: F Dis Date: 04/20/24 Loc: ED Inpatient Rm/Bed: [facility] 1- Spec: [id number] Collected: 04/18/24-1202 Received: 04/18/24-[address]: Alejandro Rae M.D. Source: Blood OV Order: Ordered: Blood Culture Procedure Result Verified Site Blood Culture Aerobic Preliminary 04/21/24-0733 Organism 1 Staphylococcus aureus Sens Sensitivities to Follow Blood Culture PCR Panel If viewing in EMR, results available under LAB Serology tab. Critical results sent via [email or web address] to DILLON MOISE On 04/19/24 at 0545 by Fan Dobson. Confirmed message was read by recipient. S aureus RX M.I.C. --- --------- Clindamycin S <=0.5 Daptomycin S <=0.5 Erythromycin S <=0.5 Oxacillin S <=0.25 Tetracycline S <=4 Trimeth/Sulfa S <=0.5/9.5 Vancomycin S 1 S = SENSITIVE I = INTERMEDIATE R = RESISTANT Blood Culture Anaerobic Preliminary 04/21/24-0804 Organism 1 Staphylococcus aureus Sens Sensitivities to Follow Name: YAKOV KELLER : 1970 PAGE 1 Printed: 04/21/24 1010 [place] [address] / Director: Julio Cesar Singh M.D. Clinical Laboratory Report Name: YAKOV KELLER Acct: [id number] Status: DIS [place] : 1970 [facility] [place]: 04/18/24 Age: 54 Sex: F Dis Date: 04/20/24 Loc: ED Inpatient Rm/Bed: [facility] 1-7 Spec: [id number] Collected: 04/18/24-1455 Received: 04/18/24-[address]: Alejandro Rae M.D. Source: Blood OV Order: Ordered: Blood Culture Comments: Blood culture drawn venously from Right Arm. Procedure Result Verified Site Blood Culture Aerobic Preliminary 04/21/24-0806 Organism 1 Staphylococcus aureus Sens No Sensitivities to Follow Please see culture number [id number] for sensitivities. Critical results sent via [email or web address] to DILLON MOISE On 04/19/24 at 0544 by Fan Dobson. Confirmed message was read by recipient. Blood Culture Anaerobic Preliminary 04/21/24-0806 Organism 1 Staphylococcus aureus Sens No Sensitivities to Follow Please see culture number [id number] for sensitivities. Name: YAKOV KELLER : 1970 PAGE 1 Printed: 04/21/24 1010 END OF REPORT IMAGING: (Reviewed; most pertinent / most recent listed below; see EMR for further info) Chart - [employer] [facility] DATE TYPE STATUS REF RANGE/AUTHOR Hx 04/18/24 21:44 Edwin Spring 04/18/24 11:37 Frankie Peña 04/18/24 11:37 Edwin Spring 04/18/24 11:37 Guillermo Eldridge 04/18/24 11:37 Guillermo Eldridge 04/18/24 11:37 Frankie Peña 04/18/24 11:37 dEwin Spring 04/18/24 11:37 Frankie Peña 04/18/24 11:24 Frankie Peña 04/15/24 10:19 Guillermo Eldridge (ANGIE) Yakov Keller Acute 54, F0 1970 DIS IN, EDINP EDINP 1 -7 5ft 2in 72.9kg BSA: 1.79m BMI: 29.4kg/m Search Patient's Chart Service Telemetry 04/20/24 14:29 *from earlier documentation ONSET HISTORY & PHYSICAL 04/18/24 18:55 GENERAL 04/20/24 12:26 04/20/24 06:00 04/20/24 06:00 04/19/24 02:05 04/19/24 02:05 Diagnostics Reports YAKOV KELLER) 54 F 1970 Allergy/Adv: No Known Allergies [facility] JED Espinoza [phone] CT Scan Report Patient: YAKOV KELLER Admit Date: 04/15/24 MR#: [id number] Address1: [address] Acct ID:[id number] Address2: Date: 1970 [facility] Zip: [place] [address] Age: 54 Location: ED Sex: F Room/Bed: Att Phy: Diagnosis: REFERRED BY MED EXP, ABDOMINAL PAIN, RECTAL MASS Kaylen Phy: PCP,NO Service Date: 04/15/24 [facility] Phy: Interpreting Phy: Guillermo Eldridge MD Admit Phy: Ordering Phy: Maria Del Carmen Hawkins MD cc: ~ CT SCAN OF THE ABDOMEN AND PELVIS WITHOUT IV CONTRAST CLINICAL HISTORY: Generalized abdominal pain. Constipation. COMPARISON STUDY: No priors. TECHNIQUE: CT scan of the abdomen and pelvis is performed from the lung bases to the proximal femora. Images are reviewed in the axial, sagittal, and coronal planes. IV contrast was not administered for this examination. Note that the examination is suboptimal without oral and IV contrast. A dose lowering technique was utilized adhering to the principles of ALARA. CT DOSE: 590.01 mGy.cm FINDINGS: Lung bases: The heart is normal in size noting trace pericardial effusion. The lung bases are clear. Liver: The unenhanced liver is normal in size, contour, and attenuation. There is no intrahepatic biliary ductal dilatation. Gallbladder: Unremarkable. Spleen: Normal in size and attenuation. Pancreas: Unremarkable. Adrenal glands: Unremarkable. Kidneys: The unenhanced kidneys are normal in size and without hydronephrosis. No renal calculi areidentified and no ureteral stone is seen. There is no evidence of contour deforming renal mass lesion. Abdominal vasculature: The abdominal aorta is normal in course and caliber. Bowel: There is mild colonic diverticulosis without CT evidence of acute diverticulitis. No bowel obstruction is seen. Fecal retention is noted in the right colon. The distal appendix is markedly dilated comment filled with fluid, and shows peripheral calcifications. This measures up to 4.0 x 5.4 cm seen on axial image #244. The appearance is typical for a mucocele. There is no evidence of acute appendicitis. Peritoneum: There is no intraperitoneal free air or abdominal ascites. There is a fat-containing umbilical hernia. Lymphadenopathy: None. Pelvic viscera: The uterus is enlarged, heterogeneous, and infiltrated by numerous masses. The appearance is typical for fibroids. The bladder is normal as visualized. No adnexal lesion is seen. Skeletal structures: There is mild lumbosacral spondylosis. Sclerotic change is seen in the sacroiliac joints. No lytic or blastic lesions are seen. There is an abnormal rind of soft tissue seen around the anterior aspect of the partially imaged lower thoracic vertebral bodies. This is greatest at T9 as seen on axial image #1. Milder change is seen around the body of T10. No underlying cortical destruction is identified. This is contiguous with abnormal pleural-based soft tissue at the left lung base on image #1. IMPRESSION: 1. There is an abnormal rind of soft tissue seen involving the partially imaged lower thoracic vertebral bodies. This is greatest at T9, and appears to be contiguous with pleural-based soft tissue thickening at the left lung base. No underlying bony destruction is identified. The appearance favors a neoplastic process such as lymphoma. An infectious or inflammatory process could appear similar. Correlation with the medical history and clinical presentation will be essential. 2. There is a large mucocele of the appendix. Nonemergent surgical evaluation is indicated given the risk of rupture and pseudomyxoma. 3. The uterus is enlarged and infiltrated by numerous mass lesions. These are typical for fibroids. 4. Mild colonic diverticulosis without CT evidence of acute diverticulitis. 5. Additional findings as above. ACT 112: Positive. There are findings on this exam that require communication between the performing entity and the patient following Patient Test Result Information Act ([place] Act 112) guidelines. Electronically signed by: Guillermo Eldridge M.D. 04/15/2024 1:02 PM Dictated: 04/15/24 1246 Transcribed: 04/15/24 1246 [place], [place] [phone] XRay Report Patient: YAKOV KELLER Admit Date: 04/18/24 MR#: [id number] Address1: [address] [place] Acct ID:[id number] Address2: Date: 1970 [facility] Zip: [place] [address] Age: 54 Location: ED Sex: F Room/Bed: Att Phy: Diagnosis: REF BY DOC FOR MULTIPLE SYMPTOMS Kaylen Phy: Juani Goodrich DO Service Date: 04/18/24 Fam Phy: Interpreting Phy: Frankie Peña MD Admit Phy: Ordering Phy: Alejandro Rae M.D. cc: ~ XR chest 1V portable HISTORY: fever COMPARISON: None. FINDINGS: Small left pleural effusion and left basilar densities suggestive of atelectasis. No pneumothorax. The heart is mildly enlarged. The right lung is clear. No evidence for pulmonary edema. Noacute fractures. IMPRESSION: 1. Small left pleural effusion. 2. Left basilar densities favor atelectasis. 3. Mild cardiomegaly. ACT 112: Negative or not required by law. Electronically signed by: Frankie Peña M.D. 04/18/2024 1:26 PM Dictated: 04/18/24 1324 Transcribed: 04/18/24 1324 [place], [place] [phone] CT Scan Report Patient: YAKOV KELLER Admit Date: 04/18/24 MR#: [id number] Address1: [address] [place] Acct ID:[id number] Address2: Date: 1970 [facility] Zip: [place] [address] Age: 54 Location: ED Sex: F Room/Bed: Att Phy: Diagnosis: REF BY DOC FOR MULTIPLE SYMPTOMS Kaylen Phy: Juani Goodrich DO Service Date: 04/18/24 Fam Phy: Interpreting Phy: Frankie Peña MD Admit Phy: Ordering Phy: Alejandro Rae M.D. cc: ~ ABDOMEN AND PELVIS CT WITH IV CONTRAST CT DOSE: HISTORY: AP, bloating, twuc-kart-oet pain, ?lympho/Infect TECHNIQUE: Multiaxial CT images of the abdomen and pelvis were performed following the use of intravenous contrast. A dose lowering technique was utilized adhering to the principles of ALARA. COMPARISON STUDY: Abdomen and pelvis CT 04/15/2024. FINDINGS: Please refer to the dedicated chest CT and thoracic spine CT performed same day for further evaluation of the paravertebral abnormality at the T8-T9 level. There appears to be epidural extension of the paravertebral abnormality at the T8-T9 level with moderate narrowing of the thecal sac best seen on image 50. The punctate focus of gas posterior to the T10 vertebral body. Therefore, this could represent an epidural abscess. A paravertebral soft tissue mass also remains in the differential diagnosis. Small foci of gas along the left side of the paravertebral T8-T9 level is again noted suggestive of a paravertebral abscess/phlegmon. Small focus of bone erosion within the left side of the T9 vertebral body is also noted. Small left pleural effusion. No pneumoperitoneum. No pneumatosis. The heart is enlarged. Mild pericardial enhancement with a small pericardial effusion. A 7 mm hypodense lesion within the periphery the right hepatic lobe remain stable. This favors a cyst. The gallbladder, pancreas, spleen, and adrenal glands are unremarkable. The kidneys enhance normally. No h ydronephrosis. The main portal vein is patent. Normal caliber abdominal aorta. No retroperitoneal or pelvic lymphadenopathy. Multiple large uterine masses consistent with fibroids. The bladder is unremarkable. Mild pelvic floor collapse. Mild body wall edema. Fluid-filled loops of large or small bowel seen throughout the abdomen. There is mild distention of the colon. This could represent an ileus or gastroenteritis/diarrheal illness. No evidence for a bowel obstruction. Partially calcified hypodense lesion within the appendix best seen on image 255 measuring 3.9 cm. This is consistent with amucocele. IMPRESSION: 1. Interval progression of the paravertebral abnormality centered at the T8-T9 level with a left paravertebral phlegmon/developing abscess. There is evidence for epidural extension with moderate narrowing of the thecal sac. Therefore, this could represent an epidural abscess or mass. Dedicated thoracic spine MRI is recommended for further evaluation. 2. Small focus of bony destruction within the left side of the T9 vertebral body consistent with anosteomyelitis. There may be associated discitis at the T8-T9 level. 3. Small left pleural effusion. 4. Small pericardial effusion with mild enhancement of the pericardium which may represent a mild pericarditis. 5. 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 Nonemergent surgical consultation recommended for removal. 6. Fibroid uterus. 7. Mildly distended and fluid-filled colon. This could be due to an ileus or diarrhea illness/gastroenteritis. 8. Additional findings as described above. ACT 112: Negative or not required by law. Electronically signed by: Frankie Peña M.D. 04/18/2024 1:35 PM Dictated: 04/18/24 132 Transcribed: 04/18/24 1327 [place], [place] [phone] CT Scan Report Patient: YAKOV KELLER Admit Date: 04/18/24 MR#: [id number] Address1: [address] Acct ID:[id number] Address2: Date: 1970 [facility] Zip: [place] [address] Age: 54 Location: ED Sex: F Room/Bed: Att Phy: Diagnosis: REF BY DOC FOR MULTIPLE SYMPTOMS Kaylen Phy: Juani Goodrich, DO Service Date: 04/18/24 Fam Phy: Interpreting Phy: Edwin Spring MD Admit Phy: Ordering Phy: Alejandro Rae M.D. cc: ~ CT OF THE CERVICAL SPINE WITHOUT CONTRAST CLINICAL HISTORY: Neck pain. COMPARISON STUDY: No previous studies for comparison. TECHNIQUE: Helical axial images of the cervical spine were obtained without IV contrast. Sagittal and coronal reconstructions were viewed. Automated exposure control was utilized for the study. A dose lowering technique was utilized adhering to the principles of ALARA. FINDINGS: Alignment of the cervical spine is anatomic. Vertebral body heights are maintained. No acute cervical spine fracture or subluxation is present. There is no prevertebral edema. Facet joints are intact. There is mild multilevel disc space narrowing and osteophytosis of the facet arthrosis within the cervical spine. Central canal and neural foramen are suboptimally assessed given CT technique. A small amount of fluid within the right mastoid air cells is present. IMPRESSION: 1. No acute cervical spine fracture or subluxation. 2. Mild multilevel degenerative disc disease and facet arthrosis within the cervical spine. ACT 112: Negative or not required by law. Electronically signed by: Edwin Spring M.D. 04/18/2024 1:39 PM Dictated: 04/18/24 1336 Transcribed: 04/18/24 1336 [place], [place] [phone] CT Scan Report Patient: YAKOV KELLER Admit Date: 04/18/24 MR#: [id number] Address1: [address] Acct ID:[id number] Address2: Date: 1970 [facility] Zip: [place] [address] Age: 54 Location: ED Sex: F Room/Bed: Att Phy: Diagnosis: REF BY DOC FOR MULTIPLE SYMPTOMS Kaylen Phy: Juani Goodrich, Service Date: 04/18/24 [facility] Phy: Interpreting Phy: Frankie Peña MD Admit Phy: Ordering Phy: Alejandro Rae M.D. cc: ~ CHEST CT WITH CONTRAST CT DOSE: HISTORY: wblz-lbqw-fud pain, ?lympho/Infect TECHNIQUE: Multiaxial CT images of the chest were performed following the intravenous administration of contrast. A dose lowering technique was utilized adhering to the principles of ALARA. COMPARISON: Abdomen and pelvis CT 04/15/2024. FINDINGS: Paravertebral edema at the T8-T9 level with a few small foci of left paravertebral soft tissue gas are again noted and are better appreciated on the same day thoracic spine CT. Small focal erosion at the left superior endplate of T9 best in image 149. The small foci of the left paravertebral gas are consistent with a developing abscess/phlegmon. There is a small left pleural effusion. Subcentimeter mediastinal and hilar lymph nodes do not meet CT criteria for pathologic involvement. Dominant superior mediastinal lymph node on image 21 measures 8 mm. Small pericardial effusion with mild enhancement of the pericardium. This could represent a mild pericarditis. The heart is mildly enl arged. Mild circumferential thickening of the mid to distal esophagus which could be reactive to the paravertebral abnormality. There is a punctate focus of gas posterior to the T10 vertebral body within the anterior epidural space. The abdominal structures will be reported on the same day abdomen and pelvis CT. The main pulmonary artery is dilated up to 3 cm consistent with mild pulmonary arterial hypertension. Otherwise, the central airways are patent. There is mild body wall edema. No pneumothorax. The central airways are patent. Bibasilar linear densities favor subsegmental atelectasis. Focal consolidation within the base of the left lower lobe favors compressive atelectasis from the small left pleural effusion. IMPRESSION: 1. Paravertebral abnormality centered at the T8-T9 level is better appreciated on the same day thoracic spine CT. There are few small foci of gas within the left paravertebral space at this location which suggests a phlegmon/developing abscess. There is also a small focus of bony erosion at the left superior osteophyte of T9 consistent with osteomyelitis. Dedicated MRI of the thoracic spine is recommended for further evaluation. 2. The punctate focus of gas posterior to the T10 vertebral body which is indeterminate. Attention at follow-up recommended. 3. Small left pleural effusion. 4. Small pericardial effusion with mild enhancement of the pericardium. This could represent a mildpericarditis. 5. No significant lymphadenopathy identified. 6. Circumferential thickening within the mid to distal esophagus. This could be reactive to the paravertebral abnormality. 7. Additional findings as described above. ACT 112: Negative or not required by law. Electronically signed by: Frankie Peña M.D. 04/18/2024 1:24 PM Dictated: 04/18/24 1316 Transcribed: 04/18/24 1316 [place], [place] [phone] CT Scan Report Patient: YAKOV KELLER Admit Date: 04/18/24 MR#: [id number] Address1: [address] Acct ID:[id number] Address2: Date: 1970 [facility] Zip: [place] [address] Age: 54 Location: ED Sex: F Room/Bed: Att Phy: Diagnosis: REF BY DOC FOR MULTIPLE SYMPTOMS Kaylen Phy: Juani Goodrich DO Service Date: 04/18/24 Fam Phy: Interpreting Phy: Guillermo Eldridge MD Admit Phy: Ordering Phy: Alejandro Rae M.D. cc: ~ CT SCAN OF THE BRAIN WITHOUT IV CONTRAST CLINICAL HISTORY: Neck pain. COMPARISON STUDY: No priors. TECHNIQUE: Unenhanced axial CT scan of the brain is performed from the vertex to the skull base. A dose lowering technique was utilized adhering to the principles of ALARA. FINDINGS: Brain parenchyma: The brain parenchyma is normal in appearance. There is no hemorrhage, mass effect, or evidence of acute territorial ischemia by CT criteria. Mejias-white matter differentiation is preserved. No extra-axial fluid collection is seen. Ventricles, sulci, cisterns: Normal in configuration. Intracranial vasculature: The visualized intracranial vasculature at the skull base is normal in appearance. Calvarium: Unremarkable. Sinuses and mastoids: The visualized paranasal sinuses are clear. There is a right mastoid effusion. The left mastoid air cells are well pneumatized. Orbits: The bony orbits are grossly intact. IMPRESSION: No acute intracranial abnormality. ACT 112: Negative or not required by law. Electronically signed by: Guillermo Eldridge M.D. 04/18/2024 12:49 PM Dictated: 04/18/24 1246 Transcribed: 04/18/24 1246 [place], [place] [phone] CT Scan Report Patient: YAKOV KELLER Admit Date: 04/18/24 MR#: [id number] Address1: [address] Acct ID:[id number] Address2: Date: 1970 [facility] Zip: [place] [address] Age: 54 Location: ED Sex: F Room/Bed: Att Phy: Diagnosis: REF BY DOC FOR MULTIPLE SYMPTOMS Kaylen Phy: Juani Goodrich DO Service Date: 04/18/24 Fam Phy: Interpreting Phy: Guillermo Eldridge MD Admit Phy: Ordering Phy: Alejandro Rae M.D. cc: ~ CT SCAN OF THE LUMBAR SPINE WITH IV CONTRAST CLINICAL HISTORY: Back pain. Leg pain. COMPARISON STUDY: Abdominal CT performed concurrently on 04/18/[address] dated 04/15/2024. TECHNIQUE: Following the IV administration of 94 cc of Optiray 320, CT scan of the lumbar spine wasperformed from the lower thoracic spine to the sacrum. Images are reviewed in the axial, sagittal, and coronal planes. IV contrast was administered without complication. A dose lowering technique wasutilized adhering to the principles of ALARA. CT DOSE: 2908.14 mGy.cm FINDINGS: The skeletal structures are well-mineralized. There is no evidence of fracture or malalignment involving the lumbar spine. Vertebral body height and alignment are maintained. The transverseand spinous processes are intact. There is no spondylolysis. No lytic or blastic lesion is seen. Tiny anterior and lateral marginal osteophytes are seen throughout. No lytic or blastic lesion is identified. There is mild degenerative disc space narrowing, greatest at L2-L3 and L3-L4. There is no CTevidence of large disc herniation or central canal stenosis. The lumbar paraspinous soft tissues are normal in appearance. A left pleural effusion is partially imaged. No retroperitoneal lymphadenopathy is seen. 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 Uterine mass lesions are partially imaged and typical for fibroids. IMPRESSION: 1. No acute bony abnormality is seen involving the lumbar spine. 2. 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 3. A left pleural effusion is partially imaged. 4. Additional findings as above. ACT 112: Negative or not required by law. Dictated: 04/18/2024 12:52 PM Transcribed: 04/18/2024 1:22 PM Sarah [id number] EVITA_Jarrod [id number] Electronically signed by: Guillermo Eldridge M.D. 04/18/2024 5:17 PM Dictated: 04/18/24 1252 Transcribed: 04/18/24 1322 [place], [place] [phone] CT Scan Report Patient: YAKOV KELLER Admit Date: 04/18/24 MR#: [id number] Address1: [address] Acct ID:[id number] Address2: Date: 1970 [facility] Zip: [place] [address] Age: 54 Location: ED Sex: F Room/Bed: Att Phy: Diagnosis: REF BY DOC FOR MULTIPLE SYMPTOMS Kaylen Phy: Juani Goodrich, Service Date: 04/18/24 Fam Phy: Interpreting Phy: Edwin Spring MD Admit Phy: Ordering Phy: Alejandro Rae M.D. cc: ~ CT OF THE NECK WITH IV CONTRAST CLINICAL HISTORY: vusd-tvge-qrx pain, ?lympho/Infect COMPARISON STUDY: No previous studies for comparison. TECHNIQUE: Following IV administration of 94 mL of Optiray, helical axial images of the neck were obtained. Sagittal and coronal reconstructions were viewed. Automated exposure control was utilized for the study. A dose lowering technique was utilized adhering to the principles of ALARA. FINDINGS: There is a small amount of fluid within the right mastoid air cells. The sinuses are clear. The parotid and submandibular glands are unremarkable. The epiglottis is normal. No prevertebral edema edema. There are no fluid collection within the neck. Major vasculature of the neck is patent.No cervical lymphadenopathy. No mucosal lesions are identified. Mild multilevel degenerative disc disease and facet arthrosis within the cervical spine is present. A small left pleural effusion is partially imaged. The chest CT will be reported separately. IMPRESSION: 1. No acute process within the neck. 2. No cervical lymphadenopathy or masses. 3. Small left pleural effusion, better depicted on the chest CT which will be reported separately. ACT 112: Negative or not required by law. Electronically signed by: Edwin Spring M.D. 04/18/2024 1:43 PM Dictated: 04/18/24 1340 Transcribed: 04/18/24 1340 [place], [place] [phone] CT Scan Report Patient: YAKOV KELLER Admit Date: 04/18/24 MR#: [id number] Address1: [address] Acct ID:[id number] Address2: Date: 1970 [facility] Zip: [place] [address] Age: 54 Location: ED Sex: F Room/Bed: Att Phy: Diagnosis: REF BY DOC FOR MULTIPLE SYMPTOMS Kaylen Phy: Juani Goodrich DO Service Date: 04/18/24 Fam Phy: Interpreting Phy: Frankie Peña MD Admit Phy: Ordering Phy: Alejandro Rae M.D. cc: ~ CT thoracic spine w con CT DOSE: CLINICAL HISTORY: fqoa-gsrl-hur pain, ?lympho/Infect TECHNIQUE: Multiaxial CT images of the thoracic spine were performed following the intravenous administration of contrast and reformatted in the sagittal and coronal planes. A dose lowering techniquewas utilized adhering to the principles of ALARA. COMPARISON STUDY: Abdomen and pelvis CT 04/15/2024. FINDINGS: There is abnormal paravertebral soft tissue swelling centered at the T8-T9 level with a few small foci of paravertebral soft tissue gas along the left side of the T8-T9 level. Therefore, this likely represents underlying paravertebral infection with developing abscess/phlegmon. There is asmall focus of cortical erosion along the left superior osteophyte of T9 best seen on coronal image46. However, the disc space is preserved without significant endplate destruction. Therefore, thesefindings favor a paravertebral infection with secondary involvement of the T9 vertebral body consistent with an osteomyelitis. A discitis/osteomyelitis at the T8-T9 level also remains in the differential diagnosis given the surrounding paravertebral edema. There is a small left pleural effusion. Nosignificant central canal narrowing by CT technique. No fracture or subluxation within the thoracicspine. IMPRESSION: 1. Abnormal paravertebral soft tissue swelling centered at the T8-T9 level which has progressed in the interval with a few small foci of left paravertebral gas at this location. Therefore, this is consistent with a paravertebral infection with developing abscess/phlegmon. 2. . There is a small focus of cortical erosion along the left superior osteophyte of T9 as described above. However, the disc space is preserved without significant endplate destruction. Therefore, these findings favor a paravertebral infection with secondary involvement of the T9 vertebral body co nsistent with an osteomyelitis. A discitis/osteomyelitis at the T8-T9 level also remains in the differential diagnosis given the surrounding paravertebral edema. ACT 112: Negative or not required by law. Electronically signed by: Frankie Peña M.D. 04/18/2024 1:16 PM Dictated: 04/18/24 1257 Transcribed: 04/18/24 1257 [place], [place] [phone] XRay Report Patient: YAKOV KELLER Admit Date: 04/18/24 MR#: [id number] Address1: [address] Acct ID:[id number] Address2: Date: 1970 [facility] Zip: [place] [address] Age: 54 Location: [facility] Sex: F Room/Bed: [facility] 1- Att Phy: Christiano Loomis D.O. Diagnosis: SEPSIS + MENINGITIS + PARAVERTEBRAL ABSCESS Kaylen Phy: Juani Goodrich DO Service Date: 04/18/24 Fam Phy: Interpreting Phy: Edwin Spring MD Admit Phy: Catrachito Campbell MD Ordering Phy: Catrachito Campbell MD cc: ~ XR chest 1V portable CLINICAL HISTORY: Hypoxia. COMPARISON STUDY: Chest radiograph and chest CT performed earlier today. FINDINGS: Elevation of the right hemidiaphragm has slightly increased. There is no pneumothorax. A small left pleural effusion persists. No evidence for pulmonary edema. There is no consolidation. Mild cardiomegaly is unchanged. IMPRESSION: 1. No significant change in a small left pleural effusion with mild left basilar opacity which favors atelectasis. 2. Slight increase in elevation of the right hemidiaphragm. ACT 112: Negative or not required by law. Electronically signed by: Edwin Spring M.D. 04/19/2024 7:09 AM Dictated: 04/19/24705 Transcribed: 04/19/24705 CURRENT ABX DOSING INFO: Body mass index is 27.44 kg/m. Serum creatinine: 0.6 mg/dL 04/20/242126 Estimated creatinine clearance: 94.7 mL/min IMPRESSION: MSSA bacteremia NVO/paravertebral abscess RECOMMENDATIONS: I ordered IV Ancef 2g q8h (adjust for CrCl PRN) Follow up repeat [facility] from [facility] Source control deferred to Spine If OR --> get cultures COMMENT(S): The patient will eventually need a PICC but do not place it until the BCX clear. All orders per primary team unless specifically noted otherwise. Recommendations were discussed with the primary service. I will be off service until 04/25. Contact the on-call ID provider with any acute issues. REVENUE MANAGEMENT: I spent a total of 105 minutes coordinating, documenting, and providing care for this patient excluding time spent in the performance of separately billed services. * Fan Izquierdo MD - 04/20/2024 7:27 PM EDTAssociated Order(s): ADULT/PEDS ORTHOPAEDICS CONSULT IP CONSULT - Ortho Spine [facility] [id number] Name: Yakov Keller Location: [facility] A462/A Date: 04/20/2024 Time: 1926 PM Consult initiated at 7 PM REQUESTING SERVICE: Medicine REASON FOR CONSULT: T8-T9 OM/discitis and epidural abscess, please evaluate for surgical intervention for source control HPI: Yakov Keller is a 54 year old female without known PMHx who presents to [facility] for sepsis workup from OSH. Per review of records, she was seen at outside hospital on 04/18 for possible spinal infection. At OSH, she was noted to have difficulty with ambulation prompting her presentation to the ER. Initial workup included CT of the head, spine, neck, abdomen and pelvis. Imaging demonstrated T8 and T9 paravertebral phlegmon as well as developing abscess with T9 vertebral body osteomyelitis. Blood cultures were positive for staph. Orthopedic Spine is consulted for evaluation given findings of osteomyelitis in her spine with possible abscess. Of note, on admission to outside hospital, she was found to be tachycardic and she had a leukocytosis 26.8, ESR 78, CRP of 51, procal2.2. She denies tobacco, alcohol, illicit drug use. Patient currently denies any pain in her spine. Patient denies urinary retention, bowel or bladder incontinence, saddle anesthesia, or uncontrolledback pain at this time. She reports pain in her abdomen. She reports constipation. She states she has had a peralta in place for several days because she was not able to control her legs to walk to the bathroom. She has had several episodes of inability to ambulate for extended periods of time, yearsago, after martial arts injuries. PAST MEDICAL HISTORY: No past medical history on file. PAST SURGICAL HISTORY: No past surgical history on file. SOCIAL HISTORY: Social History Tobacco Use Smoking status: Never Smokeless tobacco: Never Vaping Use Vaping status: Never Used Substance Use Topics Alcohol use: Never Drug use: Never FAMILY HISTORY: No family history on file. ALLERGIES: Patient has no known allergies. REVIEW OF SYSTEMS: 10 point review of systems negative except as above in HPI. Patient denies recent fevers, chills, vision changes, SOB, cough, palpitations, CP, N/V, constipation or diarrhea, urinary retention, pain with urination, skin lesions, mood changes, unexpected weight loss or gain, numbness/tingling, or any other neurologic or musculoskeletal complaint. PHYSICAL EXAM: Most Recent Vital Signs: BP: 120 mmHg/73 mmHg (04/20/242227) Pulse: 103 (04/20/242227) Resp: 16 (04/20/242227) Temp: 37.78 C (04/20/242227) Temp Summary: Temp Min: 37.8 C (100 F) Max: 38 C (100.4 F) SpO2: 95 % (04/20/242227) O2 flow rate: 2 L/MIN (04/20/242227) Supplemental O2 Delivery: Nasal Cannula (04/20/242227) Constitution: in no acute distress HEENT: normocephalic atraumatic Neck: no tenderness noted to palpation Cardiac: regular rate felt in periphery Lungs: no increased work of breathing Abdomen: soft Back: no step-offs throughout C/TL spine. No tenderness over c/t/l spine midline or paraspinal MSK: no obvious orthopaedic deformities noted on exam. nontender to palpation throughout upper and lower extremities distal extremities warm and well perfused Neuro: Sensation: SILT in upper extremities (C5-T1) SILT in lower extremities (L2-S1) Motor: Left Right Elbow Flexion 5/5 5/5 Wrist Extension 5/5 5/5 Elbow Extension 5/5 5/5 Wrist Flexion 5/5 5/5 Hand intrinsics 5/5 5/5 Left Right Hip Flexion 5/5 5/5 Knee Extension 5/5 5/5 Ankle Dorsiflexion 5/5 5/5 Extensor Hallucis Longus 5/5 5/5 Ankle Plantar Flexion 5/5 5/5 Reflexes: 2+ patella reflex Special Tests: Wilson: Negatve Clonus: Negative Babinski: Negative Rectal tone: deferred Bulbocavernosus reflex: deferred IMAGING: MRI with and without contrast of the cervical, thoracic, and lumbar spine are pending. Orthopedics will review once complete. LABS: Reported from outside facility and gathered via chart review: White blood cell: 26.8 ESR 78 CRP 51 Procalcitonin 2.2 Blood cultures positive for staph ASSESSMENT: 54 year old female with elevated inflammatory markers and concern for thoracic vertebral osteomyelitis/diskitis, abscess. No neuro deficits. PLAN: - MRI of the cervical, thoracic, lumbar spine with and without contrast are ordered stat to evaluate for osteomyelitis, abscess, skip lesions in the spine. - Pending imaging review and completion, recommend IR biopsy - In the absence of neurologic deficit with confirmed findings of OM/discitis or abscess on imaging, recommend IV antibiotic treatment. Blood cultures at OSH are reportedly positive for staph - Orthopedics will continue to follow along patient's clinical status and update treatment plan accordingly Provisional care provided definitive to follow at a later date per attending Patient will be discussed with the attending cable installation technician, Dr. Izquierdo I have discussed the patient's management with the resident/fellow physician and agree with the note. Please refer to the documented findings and plan of care. This patient's visit today consisted ofa service. I have reviewed the medical history, physical examination, diagnosis, and plan, as performed by the resident/fellow physician. Fan Izquierdo MD documented in this encounter Nursing Notes * Karlos Ivy RN - 06/01/2024 11:41 AM EDT Patient discharged per order. Wheelchair transported by [facility]. Report given to Ne OLIVEIRA from [facility]. All questions were answered. All belongings are with the patient. * Cindy Poe RN - 05/13/2024 2:15 PM EDT Offered to move pt to chair x 2. Pt feeling tired today and refused x 2. Pt stated she will notify staff when she is ready to later on. * Meli Li RN - 05/06/2024 7:03 PM EDT I have reviewed and agree with the assessment and documentation of Laura Hoffman RN * Nate Perez RN - 05/06/2024 1:33 PM EDT SBAR FOR POST INTERVENTIONAL RADIOLOGY PROCEDURE Patient Name: Yakov Keller Age:[age] year old Sending to: [facility] A474/A Procedure: tunneled CVC insertion Medications Administered: yes: Medications (Filter: Administrations occurring from 1249 to 1334 on 05/06/24) As of 05/06/24 1334 buffered lidocaine 1 % inj (mL) Total volume: 10 mL Date/Time Rate/Dose/Volume Action Route Admin User 05/06/24 1321 10 mL Given Intradermal Tammie Decker MD fentaNYL (PF) inj (mcg) Total dose: 50 mcg Date/Time Rate/Dose/Volume Action Route Admin User 05/06/24 1315 50 mcg Given Intravenous Nate Perez RN Special Instructions: catheter verified and authorized for use Concerns: no Report from: Andrew Phone extension: [phone] Patient sent via: Bed Reason for SBAR handoff: Transfer Patient meets discharge criteria for Interventional Radiology. Vital signs stable. Dressing clean, dry, and intact. Patient awake and oriented to pre procedure baseline. Patient with no nausea/vomiting. All belongings sent with patient. Vital Signs: BP: 123/80 (05/06/24 1325) Temp: 36.8 C (98.2 F) (05/06/24 1056) Pulse: 91 (05/06/24 132) Resp: 17 (05/06/24 132) SpO2: 97 % (05/06/24 132) Weight: 56.2 kg (123 lb 14.4 oz) (05/06/24 0644) Height: 157.5 cm (5' 2") (04/20/24 1721) Neurological: [place] Coma Scale Eyes Open: Spontaneous (05/06/24 124) Best Verbal Response: Disoriented, inappropriate, cries (05/06/24 124) Best Motor Response: Obeys commands appropriate for age (05/06/24 124) Coma Score: 14 (05/06/24 124) Activity: Four Extremities LOC: Fully Awake or Pre-Anesthetic Level of Consciousness BP: Less than (+/-) 20% Resp: Deep Breathe and Cough Freely (05/06 1249) Respiratory: Pain Assessment Flowsheet Row Most Recent Value Pain Assessment Scale [facility] Adult Scale 0-10 Pain Score 0 (no pain) FLACC Total 0 Lines: Urethral Catheter (Active) Site Assessment Clean;Skin intact 05/06/24948 Securement Method Tape 05/06/24948 Catheter secured to leg? Yes 05/06/24948 Catheter bag below bladder? Yes 05/06/24948 Has IUBC been removed? (If yes, ensure the order is discontinued.) No, acute urinary retention 05/06/24948 IUBC Tubing Disconnected This Shift? No 05/06/24948 Collection Container Standard drainage 05/06/24948 Urine Description Concentrated;Yellow 09/14/24 0949 Output (mL) 100 mL 05/06/24 0949 Number of days: 9 Peripheral Line Left 22 Gauge (Active) Status Flushes easily;Cap changed;Alcohol disinfectant cap;Capped/Locked 05/06/24 0815 Tubing Changed N/A 05/06/24 0815 Phlebitis Scale 0 05/06/24 0815 Infiltration Scale 0 05/06/24 0815 Site Description (Other) Without redness, swelling or drainage 05/06/24 0815 Site Intervention Flushed 05/06/24 0815 Dressing Assessment Dressing clean, dry, and intact 05/06/24 0815 Dressing Intervention None required 05/06/24 0815 Number of days: 1 Tunneled Central Cath Single Lumen Right Chest (Active) Proximal Lumen Status Positive blood return;Flushes easily;Capped/Locked;Alcohol disinfectant cap 05/06/24 1330 Tubing Changed N/A 05/06/24 1330 Site Description Without redness, swelling or drainage 05/06/24 1330 Site Intervention None required 05/06/24 1330 Catheter Securement Device Applied 05/06/24 133 Dressing Assessment Dressing clean, dry, and intact;Transparent dressing;Gel Chlorhexidine Gluconate dressing 05/06/24 1330 Dressing Intervention Applied 05/06/24 1330 Number of days: 0 * Nate Perez RN - 05/06/2024 1:30 PM EDT 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 Patient placed on procedure table, supine position, with comfort measures intact and safety strap in place. Hemodynamic monitoring placed and initiated.Patient denies any current complaints at current time. RT staff prepares and preps for procedure. Procedure by physician. 1:12 PM Timeout performed by Dr. Mike Osorio. Correct catheter/tube size verbalized and verified during timeout. 1:15 PM Procedure started by Dr. Tammie Decker and Dr. Mike Osorio, and scrubbed RT Parrish E.Ultrasound utilized for anatomical analysis of patient and access needle guidance. 1% buffered lidocaine given by doctor at right neck site. 50 mcg Fentanyl given for patient comfort. 1:18 PM Access obtained. Guidewire inserted. Images obtained. 1:21 PM 1% buffered lidocaine given by doctor at right chest site. 1:28 PM Catheter placed, see Central Line Note. Images obtained. All ports with positive blood return. Ports flushed. 1:29 PM Sutures placed. Procedure ends. 1:30 PM Area cleaned. Secure Port IV applied to site. Chlorhexidine Tegaderm dressing applied. Green caps applied. Patient tolerated procedure well without complications. All wires, catheters, sheaths and other devices have been inspected prior to the procedure for damage. This has been confirmed by the scrubbed RT and the operating physician. All items not intended to remain in the patient have been inspected, accounted for and have been removed from the patient atthe end of the procedure. This has been confirmed by the scrubbed RT and the operating physician. Pt did not receive conscious sedation for their procedure. Total medications given Fentanyl: 50 mcg 1% buffered lidocaine: 10 mL Please see doctor's operative note for additional details. * Laura Hoffman RN - 05/06/2024 10:11 AM EDT INPATIENT TO INTERVENTIONAL RADIOLOGY (IR) HANDOFF COMMUNICATION NOTE [facility] [address] Name: Yakov Keller Age: [age] year old [place] [facility] Date: 05/06/2024 Safety Concerns: previously pulled out PICC Allergies: Patient has no known allergies. Contrast Dye Allergy? no Allergy prepped? N/A Code Status: No Code Isolation: none Report from: Laura Hoffman RN at phone extension [phone] Patient arriving via: Bed Reason for SBAR handoff: Procedure Patient is alert and oriented and able to sign consent (if not, signal person and number): Yes Patient NPO: no Patient NPO since: n/a Patient wears CPAP, BiPAP, or oxygen overnight: NO Patient has difficulty breathing when lying flat? no: Emotional/Personal Anxiety? NO Last as needed pain medication given at (time): Tylenol at 2017 Situation/Background Admission date: 04/20/2024 Patient Service: Med G [[id number]] Attending Provider: Miguelina Cain MD Admitting diagnosis: Discitis Osteomyelitis (HCC) Osteomyelitis of thoracic spine (HCC) Chief Complaint: No chief complaint on file. Problem list: Principal Problem (Resolved): Bacteremia due to Staphylococcus Active Problems: Status post laminectomy Urinary retention Adjustment disorder Pleural effusion on left Altered mental status Resolved Problems: Other constipation Epidural abscess Acute osteomyelitis (HCC) Acute hypoxemic respiratory failure (HCC) Level of Care: Med Surg [3] Vital Signs: BP: 136/75 (05/06/24604) Temp: 36.5 C (97.7 F) (05/06/24604) Pulse: 93 (05/06/24604) Resp: 17 (05/06/24604) SpO2: 100 % (05/06/24604) Weight: 56.2 kg (123 lb 14.4 oz) (05/06/24 0644) Height: 157.5 cm (5' 2") (04/20/24 1721) Labs: Please see Lab Flowsheet for lab values. Lab comments: no Lines: Urethral Catheter (Active) Site Assessment Clean;Skin intact 05/05/241999 Securement Method Tape 05/05/24799 Catheter secured to leg? Yes 05/05/24799 Catheter bag below bladder? Yes 05/05/24799 Has IUBC been removed? (If yes, ensure the order is discontinued.) No, acute urinary retention 05/05/24799 IUBC Tubing Disconnected This Shift? No 05/05/24799 Collection Container Standard drainage 05/05/24 08 Urine Description Concentrated;Leila 05/05/24 08 Output (mL) 100 mL 05/06/24 0949 Number of days: 9 Peripheral Line Left 22 Gauge (Active) Status Flushes easily;Cap changed;Alcohol disinfectant cap;Capped/Locked 05/06/24814 Tubing Changed N/A 05/06/24814 Phlebitis Scale 0 05/06/24814 Infiltration Scale 0 05/06/24814 Site Description (Other) Without redness, swelling or drainage 05/06/24814 Site Intervention Flushed 05/06/24814 Dressing Assessment Dressing clean, dry, and intact 05/06/24814 Dressing Intervention None required 05/06/24814 Number of days: 1 Fall Scale: Fall Score: 60 (05/06/24 0916) Fall Interventions: Bed at low level;Bed alarm on;Yellow armband applied/intact and on patient;Floor free of clutter;Non-skid foot covering on;Reoriented patient;Walk path free of obstacles () Neurological: [place] Coma Scale Eyes Open: Spontaneous (05/06/24 0400) Best Verbal Response: Disoriented, inappropriate, cries (05/05/241999) Best Motor Response: Obeys commands appropriate for age (05/05/241999) Coma Score: 14 (05/05/241999) Additional Neurological Information: no Respiratory: Respiratory WNL: WNL- within normal limits (05/05/241999) Cough: None (05/05/241999) Depth/Rhythm: Regular (05/05/241999) Dyspnea Occurance: None (05/05/241999) Effort: Unlabored (05/05/241999) Oxygen therapy/ Mechanical vent Supplemental O2 Delivery: Room Air, None (05/06/24604) O2 flow rate: 0 L/MIN (05/03/24617) O2 Device Skin Integrity : Skin unaffected (04/28/241999) Interventions: Pressure offloaded;Skin care completed;Tubing adjusted (04/22/241999) O2 flow rate: 0 L/MIN (05/03/24617) Additional Respiratory Information: no Cardiac: Cardiovascular WNL: WNL - within normal limits (05/05/241999) Heart Sounds: S1;S2 (05/05/24799) Rhythm: Regular (05/05/24 1826) Extremities: +Sensation;Right;Left;Upper;Lower;Warm (05/05/24799) Pulses Right: Dorsalis Pedis +;Palpable (05/05/24799) Pulses Left: Dorsalis Pedis +;Palpable (05/05/24799) Edema Location: Lower extremities;Both (05/05/24799) Edema Assessment: Trace (05/05/24799) Additional Cardiac Information: no GI/: GI WNL: WNL - within normal limits (05/05/241999) Abdomen: Soft;Non-distended;Non-tender (05/05/24799) Additional GI/ Information: no Integumentary: Integumentary WNL: X - Exceptions to WNL as documented below (05/05/241999) Skin Description: Dry;Warm (05/05/241999) Skin Color: Flesh Tone (05/05/241999) Skin Lesion: Other - Describe (see below) (05/05/241999) Anish Score (auto-calculation): 20 (05/06/24 0916) Skin Breakdown: No (04/22/24 1418) Skin Breakdown (including Red, Non-Blanchable Areas) Present on Admission?: No (04/22/24 190) Additional Integumentary Information: no Restraints: No orders of the defined types were placed in this encounter. * Cassie Mcintosh RN - 05/05/2024 9:18 AM EDT INPATIENT TO INTERVENTIONAL RADIOLOGY (IR) HANDOFF COMMUNICATION NOTE [facility] [address] [address] [facility] [id number] Name: Yakov Keller Age: [age] year old [place] [facility] [place] Date: 05/05/2024 Safety Concerns: Disoriented (to situation) Allergies: Patient has no known allergies. Contrast Dye Allergy? no Allergy prepped? N/A Code Status: No Code Isolation: None Report from: Cassie Mcintosh RN at phone extension [phone] Patient arriving via: Bed Reason for SBAR handoff: Procedure Patient is alert and oriented and able to sign consent (if not, signal person and number): Yes Patient NPO: no Patient wears CPAP, BiPAP, or oxygen overnight: no Patient has difficulty breathing when lying flat? no Emotional/Personal Anxiety? no Last as needed pain medication given at (time): N/A Situation/Background Admission date: 04/20/2024 Patient Service: Med G [[id number]] Attending Provider: Miguelina Cain MD Admitting diagnosis: Discitis Osteomyelitis (HCC) Osteomyelitis of thoracic spine (HCC) Chief Complaint: No chief complaint on file. Problem list: Principal Problem (Resolved): Bacteremia due to Staphylococcus Active Problems: Status post laminectomy Urinary retention Adjustment disorder Pleural effusion on left Altered mental status Resolved Problems: Other constipation Epidural abscess Acute osteomyelitis (HCC) Acute hypoxemic respiratory failure (HCC) Level of Care: Med Surg [3] Vital Signs: BP: 117/74 (05/05/24617) Temp: 36.7 C (98.1 F) (05/05/24617) Pulse: 91 (05/05/24617) Resp: 18 (05/05/24617) SpO2: 99 % (05/05/24617) Weight: 56.6 kg (124 lb 11.2 oz) (05/04/24 0554) Height: 157.5 cm (5' 2") (04/20/24 1721) Labs: Please see Lab Flowsheet for lab values. Lab comments: no Lines: Urethral Catheter (Active) Site Assessment Clean;Skin intact 05/05/24799 Securement Method Tape 05/05/24799 Catheter secured to leg? Yes 05/05/24799 Catheter bag below bladder? Yes 05/05/24799 Has IUBC been removed? (If yes, ensure the order is discontinued.) No, acute urinary retention 05/05/24799 IUBC Tubing Disconnected This Shift? No 05/05/24799 Collection Container Standard drainage 05/05/24799 Urine Description Concentrated;Leila 05/05/24799 Output (mL) 300 mL 05/05/24799 Number of days: 8 Peripheral Line Left 22 Gauge (Active) Status Capped/Locked;Flushes easily;Alcohol disinfectant cap 05/05/24831 Tubing Changed N/A 05/05/24831 Phlebitis Scale 0 05/05/24831 Infiltration Scale 0 05/05/24831 Site Description (Other) Without redness, swelling or drainage 05/05/24831 Site Intervention Flushed 05/05/24831 Dressing Assessment Dressing clean, dry, and intact;Transparent dressing;Gel Chlorhexidine Gluconate dressing 05/05/24831 Dressing Intervention Applied 05/05/24831 Number of days: 0 Fall Scale: Fall Score: 50 (05/05/24799) Fall Interventions: Ambulation assist device present;Bed at low level;Bed alarm on;Yellow armband applied/intact and on patient;Floor free of clutter (05/05/24799) Neurological: [place] Coma Scale Eyes Open: Spontaneous (05/05/24799) Best Verbal Response: Disoriented, inappropriate, cries (05/05/24799) Best Motor Response: Obeys commands appropriate for age (05/05/24799) Coma Score: 14 (05/05/24799) Additional Neurological Information: no Respiratory: Respiratory WNL: WNL- within normal limits (05/05/24799) Cough: None (05/05/24799) Depth/Rhythm: Regular (05/05/24799) Dyspnea Occurance: None (05/05/24799) Effort: Unlabored (05/05/24799) Oxygen therapy/ Mechanical vent Supplemental O2 Delivery: Room Air, None (05/05/24799) O2 flow rate: 0 L/MIN (05/03/24617) O2 Device Skin Integrity : Skin unaffected (04/28/241999) Interventions: Pressure offloaded;Skin care completed;Tubing adjusted (04/22/241999) O2 flow rate: 0 L/MIN (05/03/24617) Additional Respiratory Information: no Cardiac: Cardiovascular WNL: WNL - within normal limits (05/05/24799) Heart Sounds: S1;S2 (05/05/24799) Rhythm: Regular (05/05/24799) Extremities: +Sensation;Right;Left;Upper;Lower;Warm (05/05/24799) Pulses Right: Dorsalis Pedis +;Palpable (05/05/24799) Pulses Left: Dorsalis Pedis +;Palpable (05/05/24799) Edema Location: Lower extremities;Both (05/05/24799) Edema Assessment: Trace (05/05/24799) Additional Cardiac Information: no GI/: GI WNL: WNL - within normal limits (05/05/24799) Abdomen: Soft;Non-distended;Non-tender (05/05/24799) Additional GI/ Information: no Integumentary: Integumentary WNL: WNL - within normal limits (05/05/24799) Skin Description: Dry;Warm (05/05/24799) Skin Color: Flesh Tone (05/05/24799) Skin Lesion: Other - Describe (See Below) (05/05/24799) Anish Score (auto-calculation): 20 (05/05/24799) Skin Breakdown: No (04/22/24 1418) Skin Breakdown (including Red, Non-Blanchable Areas) Present on Admission?: No (04/22/24 1904) Additional Integumentary Information: no Restraints: No orders of the defined types were placed in this encounter. * Marilee Mccabe RN - 05/03/2024 9:13 PM EDT 2114-While attempting to change soiled linens, Pt spewing vulgarities and talking about how she will use her other hand to use a switch blade. Pt proceeded to kick nursing staff, attempt to grab nursing staff with restrained arms, and bite at nursing staff. Bilateral wrist restraints continued at this time. Annalise Arriola PA-C made aware. * Cassie Handy RN - 05/02/2024 7:56 PM EDT 0: Found patient in room holding peralta bag above head, in attempts to place peralta bag below level of bladder, patient became verbally aggressive, threatening "I will throw the bag at you". Patientthen disconnected peralta from peralta bag system and began swinging outside portion of catheter at this RN along with attempting to remove the peralta. In attempts to prevent patient from removing the peralta, patient began hitting and kicking this RN. Patient then also threw call peres at nursing staff. Service paged for restraints and bilateral wrist restraints applied per order. * Chaya Ayers RN - 05/02/2024 7:47 PM EDT 1929 Paged Isabel Sandoval for wrist restraint order for patient. Patient is talkative and agitated, and can not be calmed down. Patient had pulled her PICC line out earlier today and now is pulling at her peralta. Dr. Sandoval placed wrist restraint order and they are now placed on patient. * Parris Perera RN - 05/02/2024 4:46 PM EDT Right PICC removed by patient, Nurse applied pressure and placed a pressure dressing over the insertion site. Dressing remains clean and intact. * Iwona Parks RN - 05/02/2024 4:36 PM EDT Arrived in patient's room at 1615 for an hourly round. Patient's PICC line found over by doorway. Patient said she threw it. Site examined and pressure applied to stop minimal bleeding. Provider and IV team made aware. * Radha Sloan RN - 05/01/2024 11:35 AM EDT SBAR FOR POST INTERVENTIONAL RADIOLOGY PROCEDURE Patient Name: Yakov Keller Age:[age] year old Sending to: [facility] Procedure: PICC Placement Medications Administered: no Special Instructions: Line verified for use Concerns: no Report from: Radha OLIVEIRA Patient sent via: Bed Reason for SBAR handoff: Transfer Patient meets discharge criteria for Interventional Radiology. Vital signs stable. Dressing clean, dry, and intact. Patient awake and oriented to pre procedure baseline. Patient with no nausea/vomiting. All belongings sent with patient. Vital Signs: BP: 158/96 (05/01/24 1125) Temp: 36.6 C (97.9 F) (05/01/24 1015) Pulse: 87 (05/01/24 1125) Resp: 18 (05/01/24 1125) SpO2: 99 % (05/01/24 1125) Weight: 63.3 kg (139 lb 9.6 oz) (05/01/24 0339) Height: 157.5 cm (5' 2") (04/20/24 1721) Neurological: Michel Coma Scale Eyes Open: Spontaneous (05/01/24 1110) Best Verbal Response: Inappropriate words or crying (05/01/24 1110) Best Motor Response: Localizes pain (05/01/24 1110) Coma Score: 12 (05/01/24 1110) Activity: Four Extremities LOC: Fully Awake or Pre-Anesthetic Level of Consciousness BP: Less than (+/-) 20% Resp: Deep Breathe and Cough Freely (05/01 1133) Respiratory: Pain Assessment Flowsheet Row Most Recent Value Pain Assessment Scale [facility] Scale 0-10 Pain Score 0 (no pain) FLACC Total 0 Lines: Urethral Catheter (Active) Site Assessment Clean;Skin intact 05/01/24 07 Securement Method Securing device (Describe) 09720 Catheter secured to leg? Yes 05/01/24720 Catheter bag below bladder? Yes 05/01/24720 Has IUBC been removed? (If yes, ensure the order is discontinued.) No, acute urinary retention 04/30/24 08 IUBC Tubing Disconnected This Shift? 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 Patient placed on procedure table, supine position, with comfort measures intact and safety strap in place. Hemodynamic monitoring placed and initiated.Patient denies any current complaints at current time. RT staff prepares and preps for procedure. Procedure by physician. 11:17 AM Timeout performed by Dr. James Lester. Correct catheter/tube size verbalized and verified during timeout. 11:19 AM Procedure started by Dr. James Lester, and scrubbed RT Eliel Del Angel. Ultrasound utilized for anatomical analysis of patient and access needle guidance. 1% buffered lidocaine given by doctor at right site. 11:25 AM Access obtained. Guidewire inserted. Images obtained. 11:31 AM PICC placed, see PICC line note. Images obtained. Lumens flushed and have positive blood return. 11:33 AM Area cleaned. Secure Port IV applied to site. Stat Lock and IV chlorhexidine Tegaderm applied. Alcohol disinfectant cap applied. Patient tolerated procedure well without complications. All wires, catheters, sheaths and other devices have been inspected prior to the procedure for damage. This has been confirmed by the scrubbed RT and the operating physician. All items not intended to remain in the patient have been inspected, accounted for and have been removed from the patient atthe end of the procedure. This has been confirmed by the scrubbed RT and the operating physician. Pt did not receive conscious sedation for their procedure. Total medications given 1% buffered lidocaine: 7 mL Please see doctor's operative note for additional details. * Jw Abdul RN - 05/01/2024 8:55 AM EDT SBAR FOR PRE INTERVENTIONAL RADIOLOGY PROCEDURE Patient Name: Yakov Keller Age:[age] year old [place] [facility] Safety Concerns: Confused/Disoriented Allergies: Patient has no known allergies. Code Status: Code Status: No Code Isolation: Isolation flowsheet: None Report from: GIOVANNI Todd Nurse Patient arriving via: Bed or Stretcher Reason for SBAR handoff: Procedure/Diagnostic/Treatment Situation/Background Admission date: 04/20/2024 Patient Service: Med G [[id number]] Attending Provider: Mery Kramer MD Admitting diagnosis: Discitis Osteomyelitis (HCC) Osteomyelitis of thoracic spine (HCC) Chief Complaint: No chief complaint on file. Problem list: Principal Problem (Resolved): Bacteremia due to Staphylococcus Active Problems: Other constipation Status post laminectomy Urinary retention Adjustment disorder Pleural effusion on left Resolved Problems: Epidural abscess Acute osteomyelitis (HCC) Acute hypoxemic respiratory failure (HCC) Level of Care: Med Surg [3] Vital Signs: BP: 132/73 (05/01/24720) Temp: 36.7 C (98.1 F) (05/01/24720) Pulse: 80 (05/01/24720) Resp: 18 (05/01/24720) SpO2: 98 % (05/01/24720) Weight: 63.3 kg (139 lb 9.6 oz) (05/01/24 0339) Height: 157.5 cm (5' 2") (04/20/24 1721) * Peyton Ledesma RN - 04/28/2024 9:23 AM EDT INPATIENT TO INTERVENTIONAL RADIOLOGY (IR) HANDOFF COMMUNICATION NOTE [facility] [address] [facility] [address] Name: Yakov Keller Age: [age] year old [place] [facility] Date: 04/28/2024 Safety Concerns: Confused/Disoriented, Fall Risk, and Other Patient experiences episodes of word salad Allergies: Patient has no known allergies. Contrast Dye Allergy? no Allergy prepped? N/A Code Status: No Code Isolation: n.a Report from: Peyton Ledesma RN at phone extension [phone] Patient arriving via: Bed Reason for SBAR handoff: Procedure Patient is alert and oriented and able to sign consent (if not, signal person and number): Yes Patient NPO: no Patient NPO since: n/a Patient wears CPAP, BiPAP, or oxygen overnight: no Patient has difficulty breathing when lying flat? no Emotional/Personal Anxiety? no Last as needed pain medication given at (time): 09 Situation/Background Admission date: 04/20/2024 Patient Service: Med G [[id number]] Attending Provider: Mery Kramer MD Admitting diagnosis: Discitis Osteomyelitis (HCC) Osteomyelitis of thoracic spine (HCC) Chief Complaint: No chief complaint on file. Problem list: Principal Problem: Bacteremia due to Staphylococcus Active Problems: Constipation Epidural abscess Acute osteomyelitis (HCC) Acute hypoxemic respiratory failure (HCC) Status post laminectomy Urinary retention Adjustment disorder Pleural effusion on left Resolved Problems: * No resolved hospital problems. * Level of Care: Med Surg [3] Vital Signs: BP: 130/85 (04/28/24633) Temp: 37.3 C (99.1 F) (04/28/24633) Pulse: 97 (04/28/24633) Resp: 18 (04/28/24633) SpO2: 100 % (04/28/24633) Weight: 71.4 kg (157 lb 6.4 oz) (04/28/24 0034) Height: 157.5 cm (5' 2") (04/20/24 1721) Labs: Please see Lab Flowsheet for lab values. Lab comments: no Lines: Urethral Catheter (Active) Site Assessment Clean;Skin intact 04/28/24810 Securement Method Leg strap 04/28/24810 Catheter secured to leg? Yes 04/28/24810 Catheter bag below bladder? Yes 04/28/24810 Has IUBC been removed? (If yes, ensure the order is discontinued.) No, acute urinary retention 04/28/24810 IUBC Tubing Disconnected This Shift? No 04/28/24810 Collection Container Standard drainage 04/28/24810 Urine Description Clear;Yellow 04/28/24810 Output (mL) 1250 mL 04/28/24729 Number of days: 1 Peripheral Line Left Wrist 18 Gauge (Active) Status Capped/Locked;Flushes easily;Alcohol disinfectant cap;Cap changed 04/28/24799 Tubing Changed N/A 04/28/24799 Phlebitis Scale 0 04/28/24799 Infiltration Scale 0 04/28/24799 Site Description (Other) Without redness, swelling or drainage 04/28/24799 Site Intervention Flushed 04/28/24799 Dressing Assessment Dressing clean, dry, and intact 04/28/24799 Dressing Intervention None required 04/28/24799 Number of days: 6 Peripheral Line Lower;Right Arm 22 Gauge (Active) Status Capped/Locked;Alcohol disinfectant cap;Cap changed;Flushes easily 04/28/24799 Tubing Changed N/A 04/28/24799 Phlebitis Scale 0 04/28/24799 Infiltration Scale 0 04/28/24799 Site Description (Other) Without redness, swelling or drainage 04/28/24799 Site Intervention Flushed 04/28/24799 Dressing Assessment Dressing clean, dry, and intact 04/28/24799 Dressing Intervention None required 04/28/24799 Number of days: 4 Fall Scale: Fall Score: 60 (04/28/24813) Fall Interventions: Bed at low level;Bed alarm on;Floor free of clutter;Non-skid foot covering on;Walk path free of obstacles (04/28/24813) Neurological: [place] Coma Scale Eyes Open: Spontaneous (04/28/24810) Best Verbal Response: Verbally appropriate for age (04/28/24810) Best Motor Response: Obeys commands appropriate for age (04/28/24810) Coma Score: 15 (04/28/24810) Additional Neurological Information: no Respiratory: Respiratory WNL: X - Exceptions to WNL as documented below (04/28/24810) Cough: None (04/28/24810) Depth/Rhythm: Regular (04/28/24810) Dyspnea Occurance: None (04/28/24810) Effort: Unlabored (04/28/24810) Oxygen therapy/ Mechanical vent Supplemental O2 Delivery: Room Air, None (04/28/24810) O2 flow rate: 0 L/MIN (04/28/24633) O2 Device Skin Integrity : Skin unaffected (04/22/241999) Interventions: Pressure offloaded;Skin care completed;Tubing adjusted (04/22/241999) O2 flow rate: 0 L/MIN (04/28/24633) Additional Respiratory Information: no Cardiac: Cardiovascular WNL: X - Exceptions to WNL as documented below (04/28/24810) Heart Sounds: S2;S1 (04/28/24810) Rhythm: Regular (04/24/240) Extremities: +Sensation;Right;Left;Upper;Lower;White (04/28/24810) Pulses Right: Dorsalis Pedis + (04/28/24810) Pulses Left: Dorsalis Pedis + (04/28/24810) Edema Location: Lower extremities;Both (04/28/24810) Edema Assessment: +2 - Description (04/28/24810) Capillary Refill: 3 sec (04/28/24810) Additional Cardiac Information: no GI/: GI WNL: X - Exceptions to WNL as documented below (04/28/24810) Abdomen: Soft;Non-tender;Rounded (04/28/24810) Additional GI/ Information: no Integumentary: Integumentary WNL: X - Exceptions to WNL as documented below (04/28/24810) Skin Description: Dry;Warm (04/28/24810) Skin Color: Flesh Tone (04/28/24810) Skin Lesion: Other - Describe (see below-surgical incision) (04/27/241937) Anish Score (auto-calculation): 15 (04/27/24 1940) Skin Breakdown: No (04/22/24 1418) Skin Breakdown (including Red, Non-Blanchable Areas) Present on Admission?: No (04/22/241903) Additional Integumentary Information: no Restraints: No orders of the defined types were placed in this encounter. * Meli Li RN - 04/27/2024 7:24 PM EDT I have reviewed and agree with the assessment and documentation of Laura Hoffman RN * Meli Li RN - 04/27/2024 9:25 AM EDT This RN offered patient to mobilize and transfer out of bed to the chair. The patient responded "Firmly no" and requested to stay in bed at this time. * Laura Hoffman RN - 04/27/2024 8:26 AM EDT INPATIENT TO INTERVENTIONAL RADIOLOGY (IR) HANDOFF COMMUNICATION NOTE [facility] [address] [facility] [address] Name: Yakov Keller Age: [age] year old [place] [facility] [place] Date: 04/27/2024 Safety Concerns: Communication/Language patient has word salad and repeats phrases Allergies: Patient has no known allergies. Contrast Dye Allergy? no Allergy prepped? N/A Code Status: No Code Isolation: N/A Report from: Laura Hoffman RN at phone extension [phone] Patient arriving via: Bed Reason for SBAR handoff: Procedure Patient is alert and oriented and able to sign consent (if not, signal person and number): Yes Patient NPO: no Patient NPO since: N/A Patient wears CPAP, BiPAP, or oxygen overnight: no Patient has difficulty breathing when lying flat? no Emotional/Personal Anxiety? no Last as needed pain medication given at (time): 04/26/2024 10am Situation/Background Admission date: 04/20/2024 Patient Service: Med G [[id number]] Attending Provider: Mery Kramer MD Admitting diagnosis: Discitis Osteomyelitis (HCC) Osteomyelitis of thoracic spine (HCC) Chief Complaint: No chief complaint on file. Problem list: Principal Problem: Bacteremia due to Staphylococcus Active Problems: Constipation Epidural abscess Acute osteomyelitis (HCC) Acute hypoxemic respiratory failure (HCC) Status post laminectomy Urinary retention Adjustment disorder Resolved Problems: * No resolved hospital problems. * Level of Care: Med Surg [3] Vital Signs: BP: 138/75 (04/27/24655) Temp: 36.8 C (98.2 F) (04/27/24655) Pulse: 97 (04/27/24655) Resp: 18 (04/27/24655) SpO2: 99 % (04/27/24655) Weight: 72 kg (158 lb 11.2 oz) (04/27/24521) Height: 157.5 cm (5' 2") (04/20/24 1721) Labs: Please see Lab Flowsheet for lab values. Lab comments: no Lines: Urethral Catheter (Active) Site Assessment Clean;Skin intact 04/27/24356 Securement Method Tape 04/27/24356 Catheter secured to leg? Yes 04/27/24356 Catheter bag below bladder? Yes 04/27/24356 Collection Container Standard drainage 04/27/24356 Urine Description Yellow 04/27/24356 Number of days: 0 Peripheral Line Left Wrist 18 Gauge (Active) Status Capped/Locked;Flushes easily;Alcohol disinfectant cap;Cap changed 04/27/24 0300 Tubing Changed N/A 04/27/24 0300 Phlebitis Scale 0 04/27/24 0300 Infiltration Scale 0 04/27/24 030 Site Description (Other) Without redness, swelling or drainage 04/27/24 0300 Site Intervention Flushed 04/27/24 0300 Dressing Assessment Dressing clean, dry, and intact 04/27/24 0300 Dressing Intervention None required 04/27/24 030 Number of days: 5 Peripheral Line Lower;Right Arm 22 Gauge (Active) Status Capped/Locked;Flushes easily;Alcohol disinfectant cap;Cap changed 04/27/24 0300 Tubing Changed N/A 04/27/24 0300 Phlebitis Scale 0 04/27/24 0300 Infiltration Scale 0 04/27/24 0300 Site Description (Other) Without redness, swelling or drainage 04/27/24 0300 Site Intervention Flushed 04/27/24 0300 Dressing Assessment Dressing clean, dry, and intact 04/27/24 0300 Dressing Intervention None required 04/27/24 0300 Number of days: 3 Fall Scale: Fall Score: 60 (04/26/241944) Fall Interventions: Bed at low level;Bed alarm on (04/26/24 1100) Neurological: [place] Coma Scale Eyes Open: Spontaneous (04/27/24357) Best Verbal Response: Verbally appropriate for age (04/27/24357) Best Motor Response: Obeys commands appropriate for age (04/27/24357) Coma Score: 15 (04/27/24357) Additional Neurological Information: no Respiratory: Respiratory WNL: X - Exceptions to WNL as documented below (04/26/241944) Cough: None (09/03/24 0810) Depth/Rhythm: Regular (04/25/24 0810) Dyspnea Occurance: None (04/26/24 1002) Effort: Unlabored (04/26/24 1002) Oxygen therapy/ Mechanical vent Supplemental O2 Delivery: Room Air, None (04/27/24655) O2 flow rate: 0 L/MIN (04/27/24655) O2 Device Skin Integrity : Skin unaffected (04/22/241999) Interventions: Pressure offloaded;Skin care completed;Tubing adjusted (04/22/241999) O2 flow rate: 0 L/MIN (04/27/24655) Additional Respiratory Information: no Cardiac: Cardiovascular WNL: X - Exceptions to WNL as documented below (04/26/241944) Heart Sounds: S1;S2 (04/25/241999) Rhythm: Regular (04/24/24 230) Extremities: +Sensation;Right;Left;Upper;Lower;Warm;Hansell (04/25/241999) Pulses Right: Dorsalis Pedis +;Radial +;Palpable (04/25/241999) Pulses Left: Dorsalis Pedis +;Radial +;Palpable (04/25/241999) Edema Location: Lower extremities;Both (04/26/241944) Edema Assessment: +2 - Description (04/26/241944) Capillary Refill: 3 sec (04/26/241001) Additional Cardiac Information: no GI/: GI WNL: X - Exceptions to WNL as documented below (04/26/241944) Abdomen: Rounded (04/26/241944) Additional GI/ Information: yes: Peralta Catheter Integumentary: Integumentary WNL: X - Exceptions to WNL as documented below (04/26/241944) Skin Description: Warm;Dry (04/26/2445) Skin Color: Flesh Tone (04/26/2445) Skin Lesion: Other - Describe (see below-surgical incision) (04/26/241944) Anish Score (auto-calculation): 15 (04/26/241944) Skin Breakdown: No (04/22/24 141) Skin Breakdown (including Red, Non-Blanchable Areas) Present on Admission?: No (04/22/241903) Additional Integumentary Information: no Restraints: No orders of the defined types were placed in this encounter. * Meli Li RN - 04/26/2024 7:30 PM EDT I have reviewed and agree with the assessment and documentation of Laura Hoffman RN * Meli Li RN - 04/26/2024 11:07 AM EDT INPATIENT TO INTERVENTIONAL RADIOLOGY (IR) HANDOFF COMMUNICATION NOTE [facility] [address] [facility] [address] Name: Yakov Keller Age: [age] year old [place] [facility] [place] Date: 04/26/2024 Safety Concerns: Confused/Disoriented and Communication/Language patient has word salad and repeatsphrases Allergies: Patient has no known allergies. Contrast Dye Allergy? no Allergy prepped? N/A Code Status: No Code Isolation: N/A Report from: Meli Li RN at phone extension [phone] Patient arriving via: Bed Reason for SBAR handoff: Procedure Patient is alert and oriented and able to sign consent (if not, signal person and number): Yes Patient NPO: no Patient NPO since: N/A Patient wears CPAP, BiPAP, or oxygen overnight: no Patient has difficulty breathing when lying flat? no Emotional/Personal Anxiety? no Last as needed pain medication given at (time): N/A Situation/Background Admission date: 04/20/2024 Patient Service: Med G [[id number]] Attending Provider: Mery Kramer MD Admitting diagnosis: Discitis Osteomyelitis (HCC) Osteomyelitis of thoracic spine (HCC) Chief Complaint: No chief complaint on file. Problem list: Principal Problem: Bacteremia due to Staphylococcus Active Problems: Constipation Epidural abscess Acute osteomyelitis (HCC) Acute hypoxemic respiratory failure (HCC) Status post laminectomy Urinary retention Adjustment disorder Resolved Problems: * No resolved hospital problems. * Level of Care: Med Surg [3] Vital Signs: BP: 135/83 (04/26/24 105) Temp: 37.1 C (98.8 F) (04/26/24 105) Pulse: 111 (04/26/24 105) Resp: 18 (04/26/24 105) SpO2: 99 % (04/26/24 105) Weight: 74.3 kg (163 lb 12.8 oz) (04/26/24 05) Height: 157.5 cm (5' 2") (04/20/24 1721) Labs: Please see Lab Flowsheet for lab values. Lab comments: no Lines: Peripheral Line Left Wrist 18 Gauge (Active) Status Capped/Locked;Flushes easily;Alcohol disinfectant cap;Cap changed 04/26/2451 Tubing Changed N/A 04/26/2451 Phlebitis Scale 0 04/26/2451 Infiltration Scale 0 04/26/2451 Site Description (Other) Without redness, swelling or drainage 04/26/2451 Site Intervention Flushed 04/26/2451 Dressing Assessment Dressing clean, dry, and intact 04/26/2451 Dressing Intervention None required 04/26/2451 Number of days: 4 Peripheral Line Lower;Right Arm 22 Gauge (Active) Status Capped/Locked;Flushes easily;Alcohol disinfectant cap;Cap changed 04/26/2451 Tubing Changed N/A 04/26/2451 Phlebitis Scale 0 04/26/2451 Infiltration Scale 0 04/26/2451 Site Description (Other) Without redness, swelling or drainage 04/26/2451 Site Intervention Flushed 04/26/2451 Dressing Assessment Dressing clean, dry, and intact 09/04/24 0052 Dressing Intervention None required 04/26/2451 Number of days: 2 Drain Joe Caceres Upper;Right Back (Active) Status Bulb Suction 04/26/24899 Suction Bulb Suction 04/26/24899 Site Description Without redness, swelling or drainage 04/25/241999 Dressing Assessment Dressing clean, dry, and intact 04/25/241999 Description of Output Serosanguineous 04/26/24899 Dressing Intervention None required 04/26/24899 Output (mL) 10 mL 04/26/24899 Number of days: 4 Drain Joe Caceres Mid Back (Active) Status Bulb Suction 04/26/24899 Suction Bulb Suction 04/26/24899 Site Description Without redness, swelling or drainage 04/25/241999 Dressing Assessment Dressing clean, dry, and intact 04/25/241999 Description of Output Serosanguineous 04/26/24899 Dressing Intervention None required 04/25/241999 Output (mL) 5 mL 04/26/24899 Number of days: 4 Fall Scale: Fall Score: 45 (04/26/24 0045) Fall Interventions: Bed at low level;Ambulation assist device present;Bed alarm on;Yellow armband applied/intact and on patient;Floor free of clutter;Non-skid foot covering on;Walk path free of obstacles (04/26/2444) Neurological: Michel Coma Scale Eyes Open: Spontaneous (04/26/2445) Best Verbal Response: Verbally appropriate for age (04/26/24 004) Best Motor Response: Obeys commands appropriate for age (04/26/2445) Coma Score: 15 (04/26/2445) Additional Neurological Information: repeats phrases Respiratory: Respiratory WNL: X - Exceptions to WNL as documented below (04/26/2445) Cough: None (04/25/24809) Depth/Rhythm: Regular (04/25/24809) Dyspnea Occurance: None (04/25/24 08) Effort: Unlabored (04/25/24809) Oxygen therapy/ Mechanical vent Supplemental O2 Delivery: Room Air, None (04/26/24 1056) O2 flow rate: 0 L/MIN (04/26/24 1015) O2 Device Skin Integrity : Skin unaffected (04/22/241999) Interventions: Pressure offloaded;Skin care completed;Tubing adjusted (04/22/241999) O2 flow rate: 0 L/MIN (04/26/24 1015) Additional Respiratory Information: no Cardiac: Cardiovascular WNL: X - Exceptions to WNL as documented below (04/26/2445) Heart Sounds: S1;S2 (04/25/241999) Rhythm: Regular (04/24/24 2300) Extremities: +Sensation;Right;Left;Upper;Lower;Warm;Hansell (04/25/241999) Pulses Right: Dorsalis Pedis +;Radial +;Palpable (04/25/241999) Pulses Left: Dorsalis Pedis +;Radial +;Palpable (04/25/241999) Edema Location: Lower extremities;Both (04/26/2445) Edema Assessment: +3 - Description (04/26/2445) Capillary Refill: 3 sec (04/26/2445) Additional Cardiac Information: no GI/: GI WNL: X - Exceptions to WNL as documented below (04/26/2445) Abdomen: Soft;Non-tender (04/26/2445) Additional GI/ Information: no Integumentary: Integumentary WNL: X - Exceptions to WNL as documented below (04/26/2445) Skin Description: Warm;Dry (04/26/2445) Skin Color: Flesh Tone (04/26/2445) Skin Lesion: Other - Describe (see below) (04/26/2445) Anish Score (auto-calculation): 17 (04/26/2444) Skin Breakdown: No (04/22/24 1418) Skin Breakdown (including Red, Non-Blanchable Areas) Present on Admission?: No (04/22/24 1904) Additional Integumentary Information: no Restraints: No orders of the defined types were placed in this encounter. * Luna Aguilar RN - 04/24/2024 7:[address] Diaz was notified about pt having fever latest temp at 38C after tylenol was given by production supervisor off shift nurse. Also, pt still not able to void till now, need in and out cath to be done again. * Luna Aguilar RN - 04/23/2024 5:28 PM EDT Pt has not urinated yet till now, bladder scan done and it is 660. Dr Diaz informed and awaiting for orders. * Luna Aguilar RN - 04/23/2024 1:10 PM EDT Dual Licensed Skin Assessment completed by TEE DOHERTY and TEE Morales from [facility]. The patient is/has a N/A Skin Breakdown (includes non blanchable erythema): No pressure injury Pt has surgical incision at the back post laminectomy with 3 kristal drains. Monitor for any skin changes. * Luna Aguilar RN - 04/23/2024 1:10 PM EDT Patient is trans in from ICU. She is alert and oriented, denies any pain. She is oriented to the room, call peres and use of phone. Dressing post laminectomy is CDI with 3 kristal drains at the back. Vital signs checked and recorded and pt is still due to void. Advised pt to drink more water and call for help. * Sandra Wade RN - 04/22/2024 7:04 PM EDT Dual Licensed Skin Assessment completed by Sandra Naylor RN and Myranda Salas RN. The patient is/has a N/A Skin Breakdown (includes non blanchable erythema): Yes - Surgical/Procedural changes only. Sx incisions covered by dressing on pt's back. Will continue to turn and reposition Q2 and do skin care Q2 * Nancy Alford LPN - 04/22/2024 1:02 PM EDT IP TO PERIOP HANDOFF COMMUNICATION NOTE [address] [id number] Name: Yakov Keller AGE: [age] year old [place] [facility] Date: 04/22/2024 Attention to: PACU Report from: Nancy Alford LPN Patient arriving via: Bed Time of Call: 1:02 PM Phone Ext.: [phone] Reason for SBAR handoff: OR Consent: Emotional/Personal Events & Special Needs: n/a Allergies: Patient has no known allergies. PMH:No past medical history on file. PSH: No past surgical history on file. Isolation: Situation/Background Admission Date: 04/20/2024 Patient Service: Med G Attending: Modesta Diaz MD Level of Care: Med Surg [3] Assessment Vital Signs: BP: 145/86 (04/22/24 1243) Temp: 37.6 C (99.6 F) (04/22/24 1243) Pulse: 94 (04/22/24 1243) Resp: 18 (04/22/24 1243) SpO2: 100 % (04/22/24 1243) O2 flow rate: 0 L/MIN (04/22/24 0814) Lines: Urethral Catheter (Active) Site Assessment Skin intact 04/22/24813 Securement Method Securing device (Describe) 04/22/24813 Catheter secured to leg? Yes 04/22/24813 Catheter bag below bladder? Yes 04/22/24813 Has IUBC been removed? (If yes, ensure the order is discontinued.) No, chronic indwelling catheter 04/22/24813 IUBC Tubing Disconnected This Shift? No 04/22/24813 Collection Container Standard drainage 04/22/24813 Urine Description Clear;Tea Color 04/22/24813 Output (mL) 300 mL 04/22/24 0500 Number of days: 2 Peripheral Line Lower;Left Arm 20 Gauge (Active) Status Capped/Locked;Alcohol disinfectant cap 04/22/24799 Tubing Changed No 04/22/24799 Phlebitis Scale 0 04/22/24799 Infiltration Scale 0 04/22/24799 Site Description (Other) Without redness, swelling or drainage 04/22/24799 Site Intervention None required 04/22/24799 Dressing Assessment Dressing clean, dry, and intact 04/22/24799 Dressing Intervention Liquid adhesive 04/22/24799 Number of days: 2 Restraints: No orders of the defined types were placed in this encounter. Labs: Please see Lab Flowsheet for lab values. Lab Comments: n/a Diet: Orders Placed This Encounter Procedures NPO NPO: Additional Diet Information: n/a Intake and Output: Intake/Output Summary (Last 24 hours) at 04/22/2024 1302 Last data filed at 04/22/2024 1019 Gross per 24 hour Intake 268.45 ml Output 850 ml Net -581.55 ml Belongings Remaining with Patient: n/a What were AM meds taken with: sips of water Time of last pain medication: n/a Med: n/a Time of last antibiotic: 21874 Med: cefazolin Time of last skin assessment: 0800 Pressure injuries or areas of concern: n/a Neurological: Neuro WNL: WNL - within normal limits (04/22/24813) Speech: Clear;Other (comment) (pt seem to have some word finding difficulties as her statements canbe very disjointed) (04/21/242058) Level of Consciousness: Alert (04/22/24813) RUE Motor Strength: 5-Active movement with full resistance (04/22/24813) RLE Motor Strength: 4-Active movement with some resistance (04/22/24813) LUE Motor Strength: 5-Active movement with full resistance (04/22/24813) LLE Motor Strength: 4-Active movement with some resistance (04/22/24813) Coma Score: 15 (04/22/24 1243) Respiratory: Respiratory WNL: WNL- within normal limits (04/22/24813) Oxygen therapy/ Mechanical vent Supplemental O2 Delivery: Room Air, None (04/22/24 1243) O2 flow rate: 0 L/MIN (04/22/24813) O2 Device Skin Integrity : Skin unaffected (04/21/24799) Interventions: Tubing adjusted (04/21/24799) Cardiac: Cardiovascular WNL: X - Exceptions to WNL as documented below (04/22/24813) Heart Sounds: S1;S2 (04/22/24813) Rhythm: Regular (04/21/241920) Extremities: +Sensation (04/21/241920) Pulses Right: Dorsalis Pedis +;Radial + (04/21/241920) Pulses Left: Dorsalis Pedis +;Radial + (04/21/241920) Edema Location: Lower extremities;Both (04/22/24813) Edema Assessment: +1 - Description (04/22/24813) Capillary Refill: 3 sec (04/21/241920) GI: GI WNL: X - Exceptions to WNL as documented below (04/22/24813) Abdomen: Soft;Non-tender;Rounded (04/22/24813) : WNL: X - Exceptions to WNL as documented below (04/22/24813) Urine Description: Tea Color (04/22/24813) Urethral Catheter (Active) Site Assessment Skin intact 04/22/24813 Securement Method Securing device (Describe) 04/22/24813 Catheter secured to leg? Yes 04/22/24813 Catheter bag below bladder? Yes 04/22/24813 Has IUBC been removed? (If yes, ensure the order is discontinued.) No, chronic indwelling catheter 04/22/24813 IUBC Tubing Disconnected This Shift? No 04/22/24813 Collection Container Standard drainage 04/22/24813 Urine Description Clear;Tea Color 04/22/24813 Output (mL) 300 mL 04/22/24 0500 Number of days: 2 Integumentary: Integumentary WNL: WNL - within normal limits (04/22/24813) Anish Score (auto-calculation): 19 (04/22/24813) Additional Assessment Information: n/a * Salinas Pierre RN - 04/21/2024 9:00 PM EDT When asked about her pain level the patient said "can you put in the maximum level that is not trauma level so I can get something IV for the pain". When asked what she meant the patient said that she had received morphine IV in the ED and would like to have it again to "preempt the pressure on herback". * Cassie Mcintosh RN - 04/20/2024 5:30 PM EDT Dual Licensed Skin Assessment completed by Cassie Mcintosh RN and Cindy Graham RN. The patient is/has a N/A Skin Breakdown (includes non blanchable erythema): No documented in this encounter OR Notes * OR Surgeon - Bhanu Montero MD - 04/22/2024 6:19 PM EDT Date: 22 April 2024 Patient: Yakov Keller : 1970 Surgeon: Bhanu Montero Professional Application Designer: Maciel Herron Pre-op diagnosis: Spinal epidural abscess involving both the cervical and thoracic spine Post-op diagnosis: same Procedure performed: Stage I: 1) hemilaminectomies, right cervical 3, left cervical 4, right cervical 5, left cervical 6, right cervical 7, left thoracic 1 2) facetectomy, left cervical 7 thoracic 1 3) use of intraoperative ultrasonography 4) Use of fluoroscopy Stage II: 1) laminectomy thoracic 8, thoracic 9, thoracic 10 2) Partial laminectomy, inferior thoracic 7, superior thoracic 11 3) medial facetectomies, bilaterally: Thoracic 7-8, thoracic 8-9, thoracic 9-10, thoracic 10-11 4) resection of intraspinal extradural mass at T10 (epidural abscess) 5) use of intraoperative ultrasonography 6) Use of fluoroscopy Anesthesia: General endotracheal Blood loss: 150 cc Fluids: 1500 cc crystalloid colloid: 500 albumin Urine: 300 mL Specimens: Multiple for culture Drains: KRISTAL x3 Complications: None immediately apparent Condition: Stable to recovery Details: I was called by 1 of my Orthopedic Surgery colleagues regarding this patient. She was apparently admitted to the medicine team some days ago when the orthopedic spine surgery service was on-call. Shepresented to an outside facility on April 18 for evaluation of a possible spine infection. This was after an ED visit on April 15. On admission she was tachycardic, with a left- sided pleural effusion, white blood cell count 27, and elevated inflammatory markers with ESR of 78 and CRP of 51. Imaging at that point demonstrated some paravertebral phlegmon at T8-T9. Subsequent workup demonstrated MSSA bacteremia with paravertebral abscesses. She has been initiated on antibiotics per the Infectious Disease service including scheduled Ancef. She was finally able to undergo MRI which appears to demonstrate a enhancing multilevel fluid collection, presumably epidural abscess, ventral to the cord. 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 Because of the presence of the intradural lesion my Orthopedic Surgery colleagues did request the involvement of Neurosurgery. I evaluated the patient. Shehas a quite an unusual affect but as best I can tell she is without obvious neurologic deficit, to include weakness, or hyperreflexia. She denies any sensory level. She was however quite uncomfortable appearing with rather severe nuchal rigidity as well as axial neck and back pain; and she was unable to sit up due to the exacerbation of axial neck and back pain. Most recent white blood cell countis 31. She was 2 positive cultures with MSSA. I did have a long discussion with both my colleagues in Orthopedic spine surgery as well as the medicine team. And subsequently I had a long discussion regarding the scenario with the patient. this most likely represents an extensive epidural abscess mostly ventrally, given the elevation of white count, fevers, and elevation inflammatory markers. The source is not entirely clear. 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 The abscess is most pronounced in the cervical spine although it extends all the way into the lumbar spine. She continues to have persistently elevated white count it was quite severe up to 31, and I think she has signs and symptoms of nuchal rigidity and axial back pain that are coming from the epidural abscess. I think she needs decompression of the cord and source control. We did discuss the effects of direct compression from the mass effect as well aspotential venous stasis from the presence of the purulent material on the cord. Given that she was n eurologically intact, I do not think it is feasible nor necessary to decompress the entire spine with laminectomies as this would certainly lead to any iatrogenic instability. I think the most prudent course is to decompress the most concerning levels and treat the remainder with antibiotic therapyas this would allow penetration into the abscess and a route for egress and drainage. Certainly shecould require additional surgery and I did explain this in detail. Right now, although I have no prior imaging for comparison. 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 I would like to continue to monitor this for now, and I would be very reluctant to address it given the need to open the dura and then place her at risk for meningitis. I did explain this in detail with the patient. At T8-T9 there is some enhancement within the vertebral bodies as well as a focus of enhancement within the T10 vertebral body. I am not exactly sure what this represents, abscess versus some otheretiology such as malignancy as indicated in the radiologic interpretation, but I think the most likely candidates are infectious in nature. I do not think these lesions are imminently surgical, and Man not see any obvious destruction or evidence of biomechanical instability on the CT scan with which she arrive. Nonetheless she does have quite substantial epidural compression and cord deformationat these levels. I did review all of the outside imaging and I counted her vertebral levels. She was seems to have a normal configuration of 7 cervical vertebrae, 12 rib-bearing thoracic vertebrae, and 5 lumbosacral vertebrae. She also has multiple head CTs as well as the enhanced CT getting the neck and the brain including the posterior fossa up to about the foramen of Monro. I see no obvious intracranial lesion although eventually she would benefit from an MRI of the brain to rule out extension elsewhere. There does not seem to be any extension from the cervical spine into the posterior fossa at least on the imaging we have obtained to this point. She did obtain the brain MRI prior to heading to the holding area and I did review it. There was no radiologic interpretation yet but I see no obvious intracranial abscess. I think the areas of worse compression or within the cervical spine and upper thoracic spine, particularly at C7-T1. And then again there was rather severe compression in the lower thoracic spine at the areas of the bony involvement, roughly T8- T10. I think the most prudent course is therefore decompression of these areas alone, without fusion. This would be followed by aggressive antibiotic therapy and close observation for any additional surgical intervention. Plan for skip an alternating laminectomies from C3-T1, as well as laminectomies from T8-T10, with extension or other procedures as indicated intraoperatively. I would plan to use intraoperative ultrasonography to guide surgical decision-making. I did explain to the patient that I would use ultrasonography and direct intraoperative feedback regarding the consistency of the abscess to direct care. She voices understanding and requests to proceed. All questions answered. Once again, she does have a quite odd affect and no friends or family members are immediately present. She was very clear that she would like to be a no code should she have a cardiac arrest but she does want the surgery. I was at the bedside with the nursing staff in the holding area as well as the anesthesia team discussing all of this in detail with the patient. Plan to proceed with laminectomy as outlined. All questions answered. I discussed the scenario preoperatively with anesthesia, including the radiographic severe cord compression, need for arterial line placement, and maintenance of blood pressure at 85, as well as the potential difficulty with localization in the thoracic spine. After obtaining informed consent, [facility], and general anesthesia was induced. IV access was obtained by Anesthesia, and SCDs were placed. An A-line was placed. A Peralta was in place. The patient's head was pinned in a Christensen 3-point barrel header, and the patient was flipped prone onto an open Jacksontable with a Christensen head attachment. All pressure points were carefully padded. Fluroscopy was taken to visualize the spine, and plan incisions. I did plan for 2 separate incisions, 1 to address the cervical spine, and 1 to address the lower thoracic spine. Each of the surgical sites were individually localize using AP and lateral fluoroscopy. Each of the 2 surgical sites were then sequentiallyclipped and prepped sterilely. Next the patient was draped in the usual sterile fashion. Antibiotics were administered per protocol. A timeout was performed identifying the correct patient, procedures, site, and side. I began with the cervical spine. An incision was made in the midline from approximately C3-T1, witha 10. Blade scalpel. Dissection was carried to the fascia using monopolar cautery. The fascia was then opened bilaterally using monopolar cautery, and the paraspinal musculature was dissected from the spinal processes and the laminae. Fluoroscopy was used to confirm correct levels. The spine was then subperiosteally exposed. Self-retaining retractors were then placed. Next, I did plan to perform alternating hemilaminectomies order to preserve some degree of normal anatomy and hence stability, and to hopefully decompress the cord while treating the abscess and also avoiding iatrogenic instability. Using a drill, alternating hemilaminectomies were performed, including on the right at C3, on the left at C4, on the right at C5, on the left at C6, on the right at C7, and on the left at T1. Thespinous process was aggressively undercut at each site of the hemilaminectomy in order to decompress the cord adequately. Next, the ligamentum flavum was identified and removed. There was edematous adipose tissue within the canal but no obvious purulence. I did take multiple cultures. In an effort to gain access to the ventral epidural space, I performed a medial facetectomy at C7-T1 including a foraminotomy on the left side at C7-T1, identifying the T1 pedicle and the associated left C8 nerve root. I then used a nerve hook to palpate both above and below the nerve root into the epidural space and attempt to locate, evacuate, and drain any purulent epidural collection. Unfortunately all I found was edematous fat. I then did ultrasound and I did see some material ventral to the cord, but the cord seemed to be adequately decompressed with reconstitution of CSF signal throughout. I suspectthat given the period of antibiotic therapy perhaps the collection had organized to the point were it was no longer in a liquid state and thus would be too difficult/dangerous to aggressively tobias. At this point I felt happy with the extent of decompression. I made the decision to conclude the operation in the cervical spine at this point. The wound was copiously irrigated with antibiotic-containing saline. Meticulous hemostasis was then achieved. All exposed bone edges were waxed. I did have anesthesia perform a Valsalva maneuver and I did not notice any leakage of CSF. The wound was packedwith sterile gauze and attention was then turned to the thoracic site, with plan to return and closed both wounds simultaneously at the conclusion of the 2nd portion of the operation. A separate incision was made in the midline from roughly thoracic 7 to thoracic 11, using a 10. Blade scalpel. The cutaneous tissues were dissected using monopolar cautery. The fascia was opened bilaterally using monopolar cautery, and the paraspinal musculature was dissected from the spinous processes and lamina of the thoracic 7-11 vertebra, being careful not to violate the facet joints. I did count multiple times using AP and lateral fluoroscopy, including the position of the vertebra from the sacrum, as well as the ribs, to confirm levels. I placed a spinal needle in order to facilitate counting. The lamina and spinous processes of T 7-11 were exposed, levels were confirmed, and a self-r etaining retractor was placed. Next, using Leksell rongeurs, Kimberly bone cutters, a drill, and Kerrison rongeurs, laminectomy and facetectomy was performed. This includes an inferior partial laminectomy of T7, complete laminectomies of T8, T9, and T10, and finally an superior partial laminectomy of T11. medial facetectomies were performed bilaterally, including: Thoracic 7-8, thoracic 8-9, thoracic 9-10, thoracic 10-11. The ligamentum flavum was resected using Kerrison rongeurs. Once again, there was no obvious purulent material however there was copious inflamed and very vascular epidural fat which I did carefully resected with a nerve hook. Multiple cultures were taken from this site, aswell. At the conclusion of the decompression I was very happy with the appearance of the dura. I did use an ultrasound to assess the neural elements, and there was ample CSF circumferentially around the cord, and it was pulsatile. I did obtain final AP and lateral x-rays to confirm that the correctlevels had been operated on. Next The wound was copiously irrigated with antibiotic- containing saline. Meticulous hemostasis was then achieved. All exposed bone edges were waxed. I did have anesthesia perform a Valsalva maneuver and I did not notice any leakage of CSF. I then placed 1 subfascial KRISTAL drain in each wound, the cervical as well as the thoracic. The woundswere closed in layers. At each site, I used interrupted inverted 0 Vicryl sutures to close the muscle and fascia, followed by 2 0 Vicryl for the subcutaneous tissues and dermis. Bill were used to reapproximate the skin. Nylon sutures were used to suture the drains in place. A sterile dressing was next applied to each site. At the end of the procedure all counts were correct. The patient was transported in stable condition to the recovery area. No complications were immediately apparent. [facility] This document was dictated using voice recognition software. Please excuse any errors. documented in this encounter Miscellaneous Notes * Ancillary Progress Note - Cheri Sahu PTA - 06/01/2024 9:10 AM EDT PROGRESS NOTE - Physical Therapy [address] [address] Name: Yakov Keller [place] [facility] [place] Date: 06/01/2024 Time: 9:10 AM Yakov Keller is a/an 54 year old female. Patient Status: Inpatient Insurance: Payor: MEDICAID [place] Plan: MED[place] Product Type: *No Product type* Patient Seen: at bedside, nursing cleared patient for therapy Patient Identified By: Name, ID Band and Date Diagnosis: discitis, OM of thoracic spine; s/p C3-T1, T7-11 laminectomies for decompression and washout of epidural abscess on 04/22/24 (06/01/24909) Status of treatment: Treatment completed (06/01/24909) Orders: PT evaluation and treatment (06/01/24909) Weight Bearing Status: Weight bearing as tolerated (06/01/24909) Precautions: Alarms;Falls;Safety;Spine precautions (06/01/24909) Total Treatment Time--free text: 16 (06/01/24909) Subjective: Patient was agreeable to work with physical therapy services. Pain: No complaints of pain Transfers Sit-Stand: Contact Guard (06/01/24909) Stand-Sit: Contact Guard (06/01/24909) Ambulation: Distance ambulated (feet): 20 + 30 + 30 + 20 Assistive Device: Rolling walker Assist: Contact Guard to minimal assistance for 1 LOB Balance Sit (Static): Fair (06/01/24909) Sit (Dynamic): Fair (06/01/24909) Stand (Static): Fair (06/01/24909) Stand (Dynamic): (fair to fair -) (06/01/24909) Patient and or Family Goal(s): to get well Topic of Education: Safety with mobility Extremity Exercise Sitting: Hip;Knee;Ankle (05/04/241001) Hip : Bilateral LE;Flexion;Adduction;Abduction;1 set of 10 (05/04/241001) Knee : Bilateral LE;Flexion;Extension;1 set of 10 (05/04/241001) Ankle: Bilateral LE;Plantar flexion;Dorsiflexion;1 set of 10 (05/04/241001) Method of Education: Verbal discussion and explanation provided to patient: verbalized understanding and or agreement of this information and demonstrated the exercise and or task Treatment Provided: Gait Training 16 minutes: gait training with rolling walker Alarm Status Patient positioned in: Chair (06/01/24909) With: Pressure pad alarm intact and functioning and call peres in reach (06/01/24909) Patient Education Review of Precautions: Safety;Fall;Spine Precautions (06/01/24909) Safety Awareness: Patient verbalizes insight of current deficits;Patient demonstrates carryover of insight during functional tasks;Patient can communicate basic needs;Needs cueing supervision (06/01/24909) Preferred learning method: Combination (06/01/24909) Barriers to learning: Medical Status (06/01/24909) Method of Education: Verbalized to patient;Patient demonstrated task (06/01/24909) Assessment: Patient was seen seated in the chair upon arrival and agreeable to work with physical therapy services. Patient performed sit to stand/stand to sit from the chair and the toilet with a contact guard and ambulated 20, 30, 30 and 20 feet in the hallway using the rolling walker, contact guard to minimal assistance with 1 LOB, and frequent standing rest breaks. Patient noted to demonstrated a narrow GILBERT with L knee buckling when fatigued requiring cues to correct. Ended session with patient reclined in the chair with pillows for comfort, pressure pad alarm activated, and call peres within reach. Patient continues to be limited by fatigue but is progressing with physical therapy services. Please consider post-acute care services which may include home health, senior living, outpatient therapy or inpatient rehabilitation. The level of care will be determined in collaboration withpatient, family/caregiver and care team members. Deficits requiring P.T. treatment needs: Safety;Mobility;Balance;Weakness;Endurance;Lower extremitystrength (06/01/24909) Plan: Continue with current treatment plan established on evaluation. AM PAC Score with Stairs: 17 A portion of this AM-PAC assessment not scored based on functional assessment; rather clinical decision making utilized based on current findings and/or prior level of function. Please refer to future AM-PAC calculations of functional ability as they become available. * Ancillary Progress Note - Nori Howard MSW - 06/01/2024 8:59 AM EDT CARE MANAGEMENT - ADULT DISCHARGE NOTE [facility] [address] Name: Yakov Keller [place] [facility] [place] Date: 06/01/2024 Time: 8:59 AM The following coordination of care and discharge plan has been coordinated with the care team, patient, family and/or caregiver according to the patients needs and preferences. Discharge Discharge Second Notice Important Message from Medicare delivered: Not Applicable (06/01/24899) Was Caregiver/Family/Facility contacted regarding discharge: Yes (06/01/24899) Discharge Transportation: Wheelchair Van (06/01/24899) Date of scheduled discharge transportation: 06/01/24 (06/01/24899) Time of scheduled discharge transportation: 1000 (06/01/24899) Patient declined post-hospital transition of care recommendation: N/A (06/01/24899) Final Discharge Plan (Complete only at time of Discharge): SNF (06/01/24899) Destination - Admitted Since 04/20/2024 Service Provider Selected Services Address Phone Fax Patient Preferred Last Updated [facility] [address] [address] [phone] -- Nori Howard MSW 05/31/2024 1542 Narrative: Per service, patient is medically ready for discharge today. Transportation confirmed for 10:30am via [employer] wheelchair van. SW asked service for meds to beds to be delivered for patient; bedside nurse made aware. Service, bedside nurse, patient, patient's friend Mariangel, and Ro with [facility] all aware. Hansell slip with [facility]. Contact CM if discharge plan changes. * Care Plan - Karlos Ivy RN - 06/01/2024 7:58 AM EDT Clinical Goal(s): patient safety (06/01/24 0700) Possible barriers to meeting goal(s)/advancing plan of care: weakness Stability of the patient: Moderately stable - low risk of patient condition declining or worsening Summary regarding today's goal(s): Met: met Recommendations: continue to monitor. * Care Plan - Reagan Son RN - 06/01/2024 4:02 AM EDT Clinical Goal(s): Pt will remain free from falls during this shift (05/31/24 1900) Possible barriers to meeting goal(s)/advancing plan of care: weakness Stability of the patient: Moderately stable - low risk of patient condition declining or worsening Summary regarding today's goal(s): Met: Pt remained free from falls during this shift Recommendations: Continue fall precautions and purposeful hourly rounding * Care Plan - Meli Li RN - 05/31/2024 4:21 PM EDT Clinical Goal(s): Patient will remain free from falls this shift. (05/31/24 0700) Possible barriers to meeting goal(s)/advancing plan of care: [place] Stability of the patient: Moderately stable - low risk of patient condition declining or worsening Summary regarding today's goal(s): Met: Patient remained free from falls this shift Recommendations: Purposeful hourly rounding, fall precautions * Ancillary Progress Note - Nori Howard MSW - 05/31/2024 3:18 PM EDT CARE MANAGEMENT - ADULT TRANSITION NOTE [facility] [address] Name: Yakov Keller [place] [facility] [place] Date: 05/31/2024 Time: 3:18 PM Risk Stratification Risk Stratification Psycho Social / Medical Concerns Identified: Adjustment to illness/injury (04/23/24 1207) Readmission Risk Score: 17.03 (05/31/24 1201) AM-PAC Score With Stairs : 22 (05/31/24 1330) Caregiver Information Patient Contacts Name Relation Home Work Mobile Maya Bruce Sibling [phone] Margi Menezes Friend [phone] Mariangel Sullivan (friend) Friend [phone] Transition of Care Checklist Transition of Care Checklist (aka Readmission Risk Score) Discharge Disposition: Post-Acute (04/28/24 0918) Narrative: Per Instrumentation And Controls Designer Madina Hernandes, [facility] are able to [facility] patient tomorrow. LENNY met with patient to provide update. Patient is agreeable to [facility]. Patient asked SWto update her friend Mariangel. SW called Mariangel ([phone]) while in the room with patient; call went to [email or web address]. SW left a message for Mariangel requesting a call back. Patient asked SW to have transport company call her friend Rebecca for patient's credit card information for payment. SW requested transport for 10am tomorrow morning. LENNY received a call back from patient's friend Mariangel and provided update; [facility]. Service updated. SW to continue to follow. Anticipated Transportation at Discharge: josefina Patient/Family Expectations: [facility] Transition Planning Transition Planning Transition Plan/Considerations: Discussed at Interdisciplinary Team / Boost Rounds (04/28/24917) Insurance Considerations: Other - Comment ([place] pending) (04/28/24917) Referral to Community Agency : N/A (04/28/24917) Post-Acute Care needs identified and Referrals Completed: Occupational Therapy;Physical Therapy;Speech Therapy (04/28/24917) Agency Choice Due to: Patient preference (04/28/24917) Additional Considerations: --- Care Management will continue to monitor and assist with discharge planning needs * Care Plan - Ani Crystal RN - 05/31/2024 3:01 AM EDT Clinical Goal(s): Pt will remain safe during this shift. (05/30/241951) Possible barriers to meeting goal(s)/advancing plan of care: diagnosis Stability of the patient: Moderately stable - low risk of patient condition declining or worsening Summary regarding today's goal(s): Met: Pt remained safe. Recommendations: Continue with plan of care, hourly rounding, and safety precautions. * Care Plan - Meli Li RN - 05/30/2024 12:50 PM EDT Clinical Goal(s): Patient will remain free from falls this shift. (05/30/24 0700) Possible barriers to meeting goal(s)/advancing plan of care: [place] Stability of the patient: Moderately stable - low risk of patient condition declining or worsening Summary regarding today's goal(s): Met: Patient remained free from falls this shift Recommendations: Purposeful hourly rounding, fall precautions * Ancillary Progress Note - Cele Barnes MSW - 05/30/2024 9:53 AM EDT CARE MANAGEMENT - ADULT TRANSITION NOTE [facility] [id number] Name: Yakov Keller [place] [facility] [place] Date: 05/30/2024 Time: 9:53 AM Risk Stratification Risk Stratification Psycho Social / Medical Concerns Identified: Adjustment to illness/injury (04/23/24 1207) Readmission Risk Score: 17.03 (05/30/24 0800) AM-PAC Score With Stairs : 22 (05/30/24 0704) Caregiver Information Patient Contacts Name Relation Home Work Mobile Maya Bruce Sibling [phone] Margi Menezes Friend [phone] LaurieMariangel (friend) Friend [phone] Transition of Care Checklist Transition of Care Checklist (aka Readmission Risk Score) Discharge Disposition: Post-Acute (04/28/24917) Narrative: Pt discussed with IDT on this date and chart reviewed. Per team, pt remains medically ready for DC. Requires IV ABX until 06/18. PT AMPAC= 17. Initially referred and accepted to [facility] but due to no family to help support the IV ABX once dc'ed from there, they then declined. Pt has straight medicaid until 06/23 when she will then have [facility]. At this time, this remains the barrier to dc as SNFs are unsure of how they will get paid. [facility] is exploring if they can accept. Discussed swing bed option with energy efficiency finance manager- unable to swing [place] pts. Continued discussion with energy efficiency finance manager and CM director to brainstorm ideas. Could consider rehab (snf vs IRF) with plan to do HH and home IVABX for duration if pt is agreeable and if we could find a HH agency that would agree to plan. Met with pt at bedside. Provided update. She is unsure if she would be able to event services manager the ABX at home but is open to exploring options. She does however want to get rehab first before going home. Call from ARABELLA/Mariangel, update provided. Anticipated Transportation at Discharge: SILVA RODRIGUEZ Patient/Family Expectations: SNF Transition Planning Transition Planning Transition Plan/Considerations: Discussed at Interdisciplinary Team / Boost Rounds (04/28/24917) Insurance Considerations: Other - Comment ([place] pending) (04/28/24917) Referral to Community Agency : N/A (04/28/24917) Post-Acute Care needs identified and Referrals Completed: Occupational Therapy;Physical Therapy;Speech Therapy (04/28/24917) Agency Choice Due to: Patient preference (04/28/24917) Additional Considerations: NA Care Management will continue to monitor and assist with discharge planning needs * Care Plan - Cassie Handy RN - 05/30/2024 12:29 AM EDT Clinical Goal(s): Pt will remain free from falls (05/29/24 1900) Possible barriers to meeting goal(s)/advancing plan of care: weakness Stability of the patient: Moderately stable - low risk of patient condition declining or worsening Summary regarding today's goal(s): Met: pt remained free from falls Recommendations: fall precautions, hourly rounding, pain mgmt * Ancillary Progress Note - Tasha Walter RN - 05/29/2024 4:56 PM EDT CARE MANAGEMENT - ADULT TRANSITION NOTE [facility] [phone] Name: Yakov Keller [facility] [facility] Date: 05/29/2024 Time: 4:56 PM Risk Stratification Risk Stratification Psycho Social / Medical Concerns Identified: Adjustment to illness/injury (04/23/24 1207) Readmission Risk Score: 17.03 (05/29/24 1601) AM-PAC Score With Stairs : 17 (05/29/24 1216) Caregiver Information Patient Contacts Name Relation Home Work Mobile Maya Bruce Sibling [phone] Margi Menezes Friend [phone] Mariangel Sullivan (friend) Friend [phone] Transition of Care Checklist Transition of Care Checklist (aka Readmission Risk Score) Discharge Disposition: Post-Acute (04/28/24917) Narrative: Call placed to [facility], message left. Awaiting return call to see if they can accept. Anticipated Transportation at Discharge: tbd Patient/Family Expectations: tbd Transition Planning Transition Planning Transition Plan/Considerations: Discussed at Interdisciplinary Team / Boost Rounds (04/28/24917) Insurance Considerations: Other - Comment ([place] pending) (04/28/24917) Referral to Community Agency : N/A (04/28/24917) Post-Acute Care needs identified and Referrals Completed: Occupational Therapy;Physical Therapy;Speech Therapy (04/28/24917) Agency Choice Due to: Patient preference (04/28/24917) Additional Considerations: Care Management will continue to monitor and assist with discharge planning needs * Ancillary Progress Note - Cheri Sahu PTA - 05/29/2024 12:16 PM EDT PROGRESS NOTE - Physical Therapy [facility] [address] Name: Yakov Keller Location: [facility] Date: 05/29/2024 Time: 12:16 PM Yakov Keller is a/an 54 year old female. Patient Status: Inpatient Insurance: Payor: [place] Plan: [place] Product Type: *No Product type* Patient Seen: at bedside, nursing cleared patient for therapy Patient Identified By: Name, ID Band and Date Diagnosis: discitis, OM of thoracic spine; s/p C3-T1, T7-11 laminectomies for decompression and washout of epidural abscess on 04/22/24 (05/29/241215) Status of treatment: Treatment completed (05/29/241215) Orders: PT evaluation and treatment (05/29/241215) Weight Bearing Status: Weight bearing as tolerated (05/29/241215) Precautions: Alarms;Falls;Safety;Spine precautions (05/29/241215) Total Treatment Time--free text: 12 (05/29/241215) Subjective: Patient was agreeable to work with physical therapy services. Pain: Patient has complaints of pain. Pain located in her back.. Patient did not formally rate painhowever primary nurse was made aware. Transfers Sit-Stand: Contact Guard (05/29/241215) Stand-Sit: Contact Guard (05/29/241215) Ambulation: Distance ambulated (feet): 65 + 40 + 30 Assistive Device: Rolling walker Assist: Contact Guard to minimal assistance to correct LOB Balance Sit (Static): Fair (05/29/241215) Sit (Dynamic): Fair (05/29/241215) Stand (Static): Fair (05/29/241215) Stand (Dynamic): (fair - to poor +) (05/29/241215) Patient and or Family Goal(s): to get well Topic of Education: Safety with mobility Extremity Exercise Sitting: Hip;Knee;Ankle (05/04/241001) Hip : Bilateral LE;Flexion;Adduction;Abduction;1 set of 10 (05/04/241001) Knee : Bilateral LE;Flexion;Extension;1 set of 10 (05/04/241001) Ankle: Bilateral LE;Plantar flexion;Dorsiflexion;1 set of 10 (05/04/241001) Method of Education: Verbal discussion and explanation provided to patient: verbalized understanding and or agreement of this information and demonstrated the exercise and or task Treatment Provided: Gait Training 12 minutes: gait training with rolling walker Alarm Status Patient positioned in: Chair (05/29/241215) With: Pressure pad alarm intact and functioning and call peres in reach (05/29/241215) Following session patient seated OOB in chair with chair alarm activated and cord plugged into callbell system. Patient Education Review of Precautions: Safety;Fall;Spine Precautions (05/29/241215) Safety Awareness: Patient verbalizes insight of current deficits;Patient demonstrates carryover of insight during functional tasks;Patient can communicate basic needs;Needs cueing supervision (05/29/241215) Preferred learning method: Combination (05/29/241215) Barriers to learning: Medical Status (05/29/241215) Method of Education: Verbalized to patient;Patient demonstrated task (05/29/241215) Assessment: Patient was seen seated in the chair upon arrival and agreeable to work with physical therapy services. Patient performed sit to stand from the bed with a contact guard assist and ambulated 65, 40, and 30 feet all with standing rest breaks in between while using the rolling walker and acontact guard to minimal assistance to correct LOB. Patient required cues to decrease gait speed and to ensure that foot placement was not too far advanced in order to avoid anterior LOB. Patient also required verbal cues for walker management. Patient continues to experienced L knee buckling when fatigued. Patient performed stand to sit into the chair with a contact guard assist. Ended session with patent seated in the chair with pillows for comfort, pressure pad alarm activated, and call bellwithin reach. Patient continues to progress when working with physical therapy services however requires cues for safe ambulation. Please consider post-acute care services which may include home health, senior living, outpatient therapy or inpatient rehabilitation. The level of care will be determ ined in collaboration with patient, family/caregiver and care team members. Deficits requiring P.T. treatment needs: Safety;Mobility;Balance;Weakness;Endurance;Lower extremitystrength (05/29/24 1216) Plan: Continue with current treatment plan established on evaluation. AM PAC Score with Stairs: 17 A portion of this AM-PAC assessment not scored based on functional assessment; rather clinical decision making utilized based on current findings and/or prior level of function. Please refer to future AM-PAC calculations of functional ability as they become available. * Ancillary Progress Note - Norma Joyner COTA - 05/29/2024 12:03 PM EDT PROGRESS NOTE - Occupational Therapy [facility] [address] Name: Yakov Keller Location: [facility] Date: 05/29/2024 Time: 12:26 PM Yakov Keller is a 54 year old female. Patient Status: Inpatient Insurance: Payor: [place] Plan: [place] Product Type: *No Product type* Patient Seen: at bedside, nursing cleared patient for therapy Patient Identified By: Name, ID Band and Date Diagnosis: s/p C3-T1, T7-11 laminectomies (05/29/24 120) Status of treatment: Treatment completed (05/29/24 120) Orders: OT evaluation and treatment (05/29/24 120) Weight Bearing Status: Weight bearing as tolerated (05/29/24 120) Precautions: Alarms;Falls;Safety (05/29/241202) Total Treatment Time: 13 (05/29/241202) Subjective: " I just want to get out of here" Pain: Patient has complaints of pain. Pain located in back " discomfort " but able to proceed with therapy. Observations Consciousness: Alert (05/29/241202) Orientation: Oriented times 4 (05/29/241202) Cognitive Limitations: Attention to task (05/29/241202) Psychosocial: Patient can communicate basic needs;Patient can converse in a social setting (05/29/241202) Sitting posture: Forward head;Rounded shoulders (05/29/241202) Standing posture: Forward head;Rounded shoulders (05/29/241202) Safety awareness: Needs cueing supervision. (05/29/241202) Other Findings Endurance: Sitting tolerance;Standing tolerance;Functional activity;Fair (05/29/241202) Current Functional Status: Activities of Daily Living: Self Care Able to provide self care: Yes (04/23/24 1118) Feeding: Not Tested (05/18/24 1215) Grooming: Supervision (Please comment) (wash hands and brush teeth in stance at sink) (05/29/241202) Toileting: Supervision (Please comment) (hygiene and clothing management) (05/29/241202) Dressing Upper Body: Not Tested (05/29/241202) Lower Body: Modified Independent (kelby cornejo) (05/29/241202) Bathing Upper Body: Not Tested (05/26/24 0915) Lower Body: Not Tested (05/26/24 09) Functional Ambulation Assistive Device: Rolling walker (05/29/241202) Distance in feet:: 25 (' X2) (05/29/241202) Level of Assistance: Supervision (Please Comment) (close supervision) (05/29/241202) Bed Mobility Roll (Right): Modified Independent (05/29/241202) Sidelying - Sit: Modified Independent (05/29/241202) OT Transfers Sit-Stand: Supervision (Please comment) (05/29/241202) Stand-Sit: Supervision (Please comment) (05/29/241202) Toilet: Supervision (Please comment) (Laz meza) (05/29/241202) Balance Sit (Static): Fair (05/29/241202) Sit (Dynamic): Fair (05/29/241202) Stand (Static): Fair (05/29/241202) Stand (Dynamic): Fair (05/29/241202) Patient Education Education Topic: Role of OT;Plan of care goals (05/29/241202) Review of Precautions: Safety;Fall;Spine Precautions (05/29/241202) Education Provided to: Patient (05/29/241202) Response to Education: Receptive and agreeable to education (05/29/241202) Barriers to learning: Medical status (05/29/241202) Preferred learning method: Combination (05/29/241202) Alarm Status Patient positioned in: Chair (05/29/241202) With: Pressure pad alarm intact and functioning and call peres in reach (05/29/241202) Following session patient seated OOB in chair with chair alarm activated and cord plugged into callbell system. Treatment Provided: Self Residential Management Trainin minutes Deficits requiring O.T. treatment needs: ADL/self- care;Balance;Endurance;Functional mobility;Safety;Weakness (05/29/241202) Assessment: Patient was found laying supine in bed upon arrival to room; awake and alert. Continuesto demonstrate self care tasks in stance at the sink and in front of the toilet with supervision level to reduce risk of falls. She continues to require close supervision level for transfers and functional ambulation; no loss of balance but dues require verbal cues for safe transfer techniques and verbal cues to pace self with mobility. Please consider post- acute care services which may include home health, senior living, outpatient therapy or inpatient rehabilitation. The level of care will be determined in collaboration with patient, family/caregiver and care team members. Plan: Will continue to follow patient per plan of care. Anticipated Frequency (on eval): 3 to 5 times per week (05/29/241202) Equipment Equipment used in Therapy: Grab bars;Rolling walker (05/29/241202) Equipment Needs Equipment needs: Rolling walker (05/15/24 3648) AM-PAC Help From Another Person Eating Meals: None (05/29/241202) Help From Another Person Taking Care of Personal Grooming: A little (05/29/241202) Help From Another Person To Put On/Take Off Upper Body Clothing: A little (05/29/241202) Help From Another Person To Put On/Take Off Lower Body Clothing: None (05/29/241202) Help From Another Person Toileting: A little (05/29/241202) Help From Another Person Bathing: A little (05/29/241202) OT AM-PAC Score: 20 (05/29/241202) OT AM-PAC t-Scale Score: 42.03 (05/29/241202) HLM (Highest Level of Mobility) Goal: Level 7 walk 25 feet or more (05/29/24 0800) A portion of this AM-PAC assessment not scored based on functional assessment; rather clinical decision making utilized based on current findings and/or prior level of function. Please refer to future AM-PAC calculations of functional ability as they become available. * Care Plan - Cassie Mcintosh RN - 05/28/2024 5:02 PM EDT Clinical Goal(s): Patient will be free from falls (05/28/24 0700) Possible barriers to meeting goal(s)/advancing plan of care: Weakness Stability of the patient: Moderately stable - low risk of patient condition declining or worsening Summary regarding today's goal(s): Met: Patient had no falls this shift Recommendations: Purposeful hourly rounding * Care Plan - Cassie Handy RN - 05/28/2024 12:24 AM EDT Clinical Goal(s): Pt will remain free from falls (05/27/24 1900) Possible barriers to meeting goal(s)/advancing plan of care: weakness Stability of the patient: Moderately stable - low risk of patient condition declining or worsening Summary regarding today's goal(s): Met: pt remained free from falls Recommendations: fall precautions, hourly rounding, pain mgmt * Care Plan - Cassie Mcintosh RN - 05/27/2024 3:32 PM EDT Clinical Goal(s): Patient will remain free from falls (05/27/24 0700) Possible barriers to meeting goal(s)/advancing plan of care: Weakness Stability of the patient: Moderately stable - low risk of patient condition declining or worsening Summary regarding today's goal(s): Met: Patient had no falls during this shift Recommendations: Purposeful hourly rounding * Ancillary Progress Note - Raven Skinner OTR/L - 05/26/2024 3:09 PM EDT Per Norma LOPEZ, this pt has currently met Occupational Therapy's plan of care, therefore the following are updates goals to continue services: BUE Strength/ROM Increase BUE strength to at least one muscle grade. ADLs Increase UE dressing to independent. Increase UE bathing to independent. Increase LE dressing to independent. Increase LE bathing to independent. Increase toileting tasks to independent Increase grooming and basic hygiene tasks while in stance at sink with independent. Bed Mobility/Functional Mobility Increase bed mobility to independent. Increase functional mobility using the least restrictive device to mod I. Functional Transfers Increase functional sit to stand transfers during ADLs to independent. Increase transfers to toilet to independent. Increase transfers from bed to chair with independent. Balance Increase sitting balance at EOB to fair+ during ADLs. Increase standing balance to fair+ during ADLs. * Care Plan - Cassie Mcintosh RN - 05/26/2024 2:14 PM EDT Clinical Goal(s): Patient will be free from falls during this shift (05/26/24 0700) Possible barriers to meeting goal(s)/advancing plan of care: Weakness Stability of the patient: Moderately stable - low risk of patient condition declining or worsening Summary regarding today's goal(s): Met: Patient had no falls this shift Recommendations: Purposeful hourly rounding * Ancillary Progress Note - Cheri Sahu PTA - 05/26/2024 9:28 AM EDT PROGRESS NOTE - Physical Therapy [facility] [address] Name: Yakov Keller Location: [facility] Date: 05/26/2024 Time: 9:28 AM Yakov Keller is a/an 54 year old female. Patient Status: Inpatient Insurance: Payor: [place] Plan: [place] Product Type: *No Product type* Patient Seen: at bedside, nursing cleared patient for therapy Patient Identified By: Name, ID Band and Date Diagnosis: discitis, OM of thoracic spine; s/p C3-T1, T7-11 laminectomies for decompression and washout of epidural abscess on 04/22/24 (05/26/24927) Status of treatment: Treatment completed (05/26/24927) Orders: PT evaluation and treatment (05/26/24927) Weight Bearing Status: Weight bearing as tolerated (05/26/24927) Precautions: Alarms;Falls;Safety;Spine precautions (05/26/24927) Total Treatment Time--free text: 10 (05/26/24927) Subjective: Patient stated, "Well, hopefully I get out of here soon." Pain: No complaints of pain Transfers Sit-Stand: Contact Guard (05/26/24927) Stand-Sit: Contact Guard (05/26/24927) Ambulation: Distance ambulated (feet): 60 + 50 Assistive Device: Rolling walker Assist: Contact Guard to minimal assistance with fatigue Balance Sit (Static): Fair (05/26/24927) Sit (Dynamic): Fair (05/26/24927) Stand (Static): Fair (05/26/24927) Stand (Dynamic): (fair - to poor +) (05/26/24927) Patient and or Family Goal(s): to get well Topic of Education: Safety with mobility Method of Education: Verbal discussion and explanation provided to patient: verbalized understanding and or agreement of this information and demonstrated the exercise and or task Treatment Provided: Gait Training 10 minutes: gait training with rolling walker Alarm Status Patient positioned in: Chair (05/26/24927) With: Pressure pad alarm intact and functioning and call peres in reach (05/26/24927) Following session patient seated OOB in chair with chair alarm activated and cord plugged into callbell system. Patient Education Review of Precautions: Safety;Spine Precautions (05/26/24927) Safety Awareness: Patient verbalizes insight of current deficits;Patient demonstrates carryover of insight during functional tasks;Patient can communicate basic needs;Needs cueing supervision (05/26/24927) Preferred learning method: Combination (05/26/24927) Barriers to learning: Medical Status (05/26/24927) Method of Education: Verbalized to patient;Patient demonstrated task (05/26/24927) Assessment: Patient was seen seated in the chair upon arrival and agreeable to work with physical therapy services. Patient performed sit to stand/stand to sit transfers from the chair with a contactguard assist this sessio and ambulated 60 feet using the rolling walker and contact guard assist. Patient took a brief standing rest break and continued to ambulate an additional 50 feet using the rolling walker and initially a contact guard assist however regressing to a minimal assist with fatigue. Patient noted to demonstrate a narrow GILBERT and LLE knee buckling when fatigue during ambulation requiring verbal and visual cues to correct. Ended session with patient seated int he chair with pillows for comfort, pressure pad alarm activated, and call peres within reach. Patient continues to progress when working with physical therapy services and required decreased assistance levels/cueing however fatigues quickly despite frequent rest breaks. Please consider post-acute care services which may include home health, senior living, outpatient therapy or inpatient rehabilitation. The level ofcare will be determined in collaboration with patient, family/caregiver and care team members. Deficits requiring P.T. treatment needs: Safety;Mobility;Balance;Weakness;Endurance;Lower extremitystrength (05/26/24927) Plan: Continue with current treatment plan established on evaluation. AM PAC Score with Stairs: 17 A portion of this AM-PAC assessment not scored based on functional assessment; rather clinical decision making utilized based on current findings and/or prior level of function. Please refer to future AM-PAC calculations of functional ability as they become available. * Ancillary Progress Note - Norma Joyner COTA - 05/26/2024 9:15 AM EDT PROGRESS NOTE - Occupational Therapy [facility] [address] Name: Yakov Keller Location: [facility] Date: 05/26/2024 Time: 2:03 PM Yakov Keller is a 54 year old female. Patient Status: Inpatient Insurance: Payor: [place] Plan: [place] Product Type: *No Product type* Patient Seen: at bedside, nursing cleared patient for therapy Patient Identified By: Name, ID Band and Date Diagnosis: s/p C3-T1, T7-11 laminectomies (05/26/24914) Status of treatment: Treatment completed (05/26/24914) Orders: OT evaluation and treatment (05/26/24914) Weight Bearing Status: Weight bearing as tolerated (05/26/24914) Precautions: Alarms;Falls;Safety (05/26/24914) Total Treatment Time: 13 (05/26/24914) Subjective: Agreeable to therapy Pain: No complaints of pain Observations Consciousness: Alert (05/26/24914) Orientation: Oriented times 4 (05/26/24914) Cognitive Limitations: Attention to task (05/26/24914) Psychosocial: Patient can communicate basic needs;Patient can converse in a social setting (05/26/24914) Sitting posture: Forward head;Rounded shoulders (05/26/24914) Standing posture: Forward head;Rounded shoulders (05/26/24914) Safety awareness: Needs cueing supervision. (05/26/24914) Other Findings Endurance: Sitting tolerance;Functional activity;Standing tolerance;Fair (05/26/24914) Current Functional Status: Activities of Daily Living: Self Care Able to provide self care: Yes (04/23/24 1118) Feeding: Not Tested (05/18/24 1215) Grooming: Supervision (Please comment) (( close) to brush hair and teeth in stance at sink) (05/26/24914) Toileting: Supervision (Please comment) (05/26/24914) Dressing Upper Body: Supervision (Please comment) (shirt) (05/26/24914) Lower Body: Supervision (Please comment) (sweat pants and underwear) (05/26/24914) Bathing Upper Body: Not Tested (05/26/24914) Lower Body: Not Tested (05/26/24914) Functional Ambulation Assistive Device: Rolling walker (05/26/24914) Distance in feet:: 15 (' X2 and 10' X2) (05/26/24914) Level of Assistance: Contact Guard (to supervision level) (05/26/24914) Bed Mobility Roll (Right): Modified Independent (05/26/24914) Roll (Left): Not Tested (05/22/24844) Supine-Sit: Not Tested (05/22/24844) Sidelying - Sit: Modified Independent (05/26/24914) OT Transfers Sit-Stand: Supervision (Please comment) (05/26/24914) Stand-Sit: Supervision (Please comment) (05/26/24914) Bed-Chair: Not Tested (05/22/24844) Toilet: Supervision (Please comment) (L grab bar) (05/26/24914) Balance Sit (Static): Fair (05/26/24914) Sit (Dynamic): Fair (05/26/24914) Stand (Static): Fair (05/26/24914) Stand (Dynamic): (fair - to fair) (05/26/24914) Patient Education Education Topic: Role of OT;Plan of care goals (05/26/24914) Review of Precautions: Safety;Fall;Spine Precautions (05/26/24914) Education Provided to: Patient (05/26/24914) Response to Education: Receptive and agreeable to education (05/26/24914) Barriers to learning: Medical status (05/26/24914) Preferred learning method: Combination (05/26/24914) Alarm Status Patient positioned in: Chair (05/26/24914) With: Pressure pad alarm intact and functioning and call peres in reach (05/26/24914) Following session patient seated OOB in chair with chair alarm activated and cord plugged into callbell system. Treatment Provided: Self Residential Management Trainin minutes Deficits requiring O.T. treatment needs: ADL/self- care;Balance;Endurance;Functional mobility;Safety;Weakness (05/26/24914) Assessment: Patient was found laying supine in bed upon arrival to room. Patient demonstrated bed mobility with modified independence with use of side rail. She continues to demonstrate good progresswith ADL performance/self care seated and in stance. Sitting balance and standing balance continue to improve. Functional transfers and functional ambulation with device continues to improve. Min verb al cues for safe transfer techniques and cues for rolling walker safety. All goals have been met. Discussed progress with motorcycle mechanic and asked for updated goals. Please consider post-acute care services which may include home health, senior living, outpatient therapy or inpatient rehabilitation. The level of care will be determined in collaboration with patient, family/caregiver and care team members. Plan: Will continue to follow patient per plan of care. Anticipated Frequency (on eval): 3 to 5 times per week (05/26/24914) Equipment Equipment used in Therapy: Grab bars;Rolling walker (05/26/24914) Equipment Needs Equipment needs: Rolling walker (05/15/24 6950) AM-PAC Help From Another Person Eating Meals: None (05/26/24914) Help From Another Person Taking Care of Personal Grooming: A little (05/26/24914) Help From Another Person To Put On/Take Off Upper Body Clothing: A little (05/26/24914) Help From Another Person To Put On/Take Off Lower Body Clothing: A little (05/26/24914) Help From Another Person Toileting: A little (05/26/24914) Help From Another Person Bathing: A little (05/26/24914) OT AM-PAC Score: 19 (05/26/24914) OT AM-PAC t-Scale Score: 40.22 (05/26/24914) HLM (Highest Level of Mobility) Goal: Level 5 standing (1 or more minutes) (05/26/24 09) A portion of this AM-PAC assessment not scored based on functional assessment ; rather clinical decision making utilized based on current findings and/or prior level of function. Please refer to future AM-PAC calculations of functional ability as they become available. * Ancillary Progress Note - Cammy Villarreal RN - 05/26/2024 8:57 AM EDT CARE MANAGEMENT - ADULT TRANSITION NOTE [facility] [place] [address] Name: Yakov Keller [place] [facility] Date: 05/26/2024 Time: 8:57 AM Risk Stratification Risk Stratification Psycho Social / Medical Concerns Identified: Adjustment to illness/injury (04/23/24 1207) Readmission Risk Score: 17.03 (05/26/24 0800) AM-PAC Score With Stairs : 20 (05/24/24 1001) Caregiver Information Patient Contacts Name Relation Home Work Mobile Maya Bruce Sibling [phone] ClifMargi Friend [phone] Mariangel Sullivan (friend) Friend [phone] Transition of Care Checklist Transition of Care Checklist (aka Readmission Risk Score) Discharge Disposition: Post-Acute (04/28/24917) Narrative: Per primary care in [place], patient medically stable for discharge. JED IBRAHIM is active - # [phone] Spoke with Monisha at [facility] - she is reviewing updated notes. Patient has active MA with [facility] until 06/23 when it swithces to [facility], Megan is looking to see if they are able to get paid through [facility]. Will need to F/U with [facility] for MA determination Will continue to follow for discharge path, needs, and planning. Anticipated Transportation at Discharge: w/c Patient/Family Expectations: SNF Transition Planning Transition Planning Transition Plan/Considerations: Discussed at Interdisciplinary Team / Boost Rounds (04/28/24917) Insurance Considerations: Other - Comment (PATRICE pending) (04/28/24917) Referral to Community Agency : N/A (04/28/24917) Post-Acute Care needs identified and Referrals Completed: Occupational Therapy;Physical Therapy;Speech Therapy (04/28/24917) Agency Choice Due to: Patient preference (04/28/24917) Additional Considerations: Care Management will continue to monitor and assist with discharge planning needs * Ancillary Progress Note - Cammy Villarreal RN - 05/25/2024 12:52 PM EDT CARE MANAGEMENT - ADULT TRANSITION NOTE [facility] [id number] Name: Yakov Keller Location[place] [facility] Date: 05/25/2024 Time: 12:52 PM Risk Stratification Risk Stratification Psycho Social / Medical Concerns Identified: Adjustment to illness/injury (04/23/24 1207) Readmission Risk Score: 17.03 (05/25/24 1201) AM-PAC Score With Stairs : 20 (05/24/24 1001) Caregiver Information Patient Contacts Name Relation Home Work Mobile Maya Bruce Sibling [phone] ClifMargi Friend [phone] Mariangel Sullivan (friend) Friend [phone] Transition of Care Checklist Transition of Care Checklist (aka Readmission Risk Score) Discharge Disposition: Post-Acute (04/28/24917) Narrative: Per primary care in [facility], patient medically stable for discharge. Spoke with Monisha at [facility], she requested updated med list and notes. Info sent to her. Will continue to follow for discharge path, needs, and planning. Anticipated Transportation at Discharge: w/c van Patient/Family Expectations: SNF Transition Planning Transition Planning Transition Plan/Considerations: Discussed at Interdisciplinary Team / Boost Rounds (04/28/24917) Insurance Considerations: Other - Comment (MA pending) (04/28/24917) Referral to Community Agency : N/A (04/28/24917) Post-Acute Care needs identified and Referrals Completed: Occupational Therapy;Physical Therapy;Speech Therapy (04/28/24917) Agency Choice Due to: Patient preference (09/06/24 0918) Additional Considerations: Care Management will continue to monitor and assist with discharge planning needs * Ancillary Progress Note - Norma Joyner COTA - 05/24/2024 3:50 PM EDT Occupational Therapy Progress Note Yakov Keller [facility] [id number] 05/24/2024 Attempted to see patient today for Occupational therapy treatment session. Patient pleasantly declined due to back discomfort . Patient stated " I can tell I have been over using it" Will continue tofollow as able. * Care Plan - Araseli Barrios RN - 05/24/2024 3:43 PM EDT Clinical Goal(s): The pt will be free from falls this shift. (05/24/24 0700) Possible barriers to meeting goal(s)/advancing plan of care: Unfamiliar environment, ambulatory aid. Stability of the patient: Moderately stable - low risk of patient condition declining or worsening Summary regarding today's goal(s): Met: The pt remained free from falls this shift. Recommendations: Continue with fall precautions and purposeful rounding. * Ancillary Progress Note - Pau Gaviria PTA - 05/24/2024 3:30 PM EDT PROGRESS NOTE - Physical Therapy [facility] [address] Name: Yakov Keller Location: [facility] Date: 05/24/2024 Time: 4:27 PM Attempted to see pt for physical therapy services, however, pt is currently declining therapy due to discomfort. Will continue to follow as able and appropriate. * Care Plan - Marilee Mccabe RN - 05/24/2024 5:07 AM EDT Clinical Goal(s): Pt will be free from falls (05/23/24 1900) Possible barriers to meeting goal(s)/advancing plan of care: weakness Stability of the patient: Moderately stable - low risk of patient condition declining or worsening Summary regarding today's goal(s): Met: Pt remained free from falls Recommendations: continue fall precautions and purposeful hourly rounding * Ancillary Progress Note - Larissa Urrutia RDN - 05/23/2024 1:53 PM EDT CLINICAL NUTRITION ADULT RISK ASSESSMENT [facility] [address] Name: Yakov Keller Location: [facility] Date: 05/23/2024 Time: 1:53 PM How patient was identified (select 2): Wristband and Name Yakov Keller is a 54 year old female being assessed for clinical nutrition risk related to follow-up Primary diagnosis: Admitted with discitis, osteomyelitis Other pertinent information: Patient see this morning ate 100% of her meal, complimentary of the food she has received. Talks of different items she has liked. Weights consistently 58-59kg for the past 5 days, this is a decrease from reported UBW. 8% loss from UBW. Anthropometrics Measurements Admission weight (for dietitians): 68 kg Height: 157.5 cm (5' 2") (04/20/24 1721) Weight: 58.6 kg (129 lb 1.6 oz) (05/23/24 0135) BMI: 27.43 (04/20/24 1721) Usual Body Weight: 140-145lb per patient (63-66kg) Diet History: Previously followed diet: Regular Food Allergies/Intolerances: no known Current Diet/Supplements: Diet: Regular Oral Nutrition Supplement (ONS): none Pertinent medications/vitamins/minerals/supplements: Ancef, melatonin, fiber packet, miralax, senokot-s, RISK FACTORS: Adult Energy Intake: No significant decrease Interpretation of Weight Change: Greater than 5% weight loss in 1 month (Severe) Skin: Intact NUTRITION RISK CATEGORY: Nutrition Risk Category: Low/Moderate (0-1 factors) Clinical Nutrition Recommendations: Diet: Continue current nutrition plan NUTRITION INTERVENTION/PLAN: Continue current care plan Will follow and adjust nutritional plan as medical condition requires. Please contact for change(s)in patient condition requiring earlier intervention. Larissa [facility]GR[facility] Clinical Nutrition Services [place] Text / x [phone] * Care Plan - Araseli Barrios RN - 05/23/2024 1:36 PM EDT Clinical Goal(s): the pt will remain free from injury this shift. (05/23/24 0700) Possible barriers to meeting goal(s)/advancing plan of care: Weakness, unfamiliar environment, intermittent abx. Stability of the patient: Moderately stable - low risk of patient condition declining or worsening Summary regarding today's goal(s): Met: The pt remained free from injury this shift. Recommendations: Continue with fall precautions and purposeful hourly rounding. * Care Plan - Reagan Son RN - 05/23/2024 4:50 AM EDT Clinical Goal(s): Pt will remain free from falls during this shift (05/22/24 1900) Possible barriers to meeting goal(s)/advancing plan of care: weakness Stability of the patient: Moderately stable - low risk of patient condition declining or worsening Summary regarding today's goal(s): Met: Pt remained free from falls during this shift Recommendations: Continue fall precautions and purposeful hourly rounding * Ancillary Progress Note - Johanny Doss RN - 05/22/2024 11:51 AM EDT CARE MANAGEMENT - ADULT TRANSITION NOTE [facility] [address] Name: Yakov Keller Location: [facility] Date: 05/22/2024 Time: 11:51 AM Risk Stratification Risk Stratification Psycho Social / Medical Concerns Identified: Adjustment to illness/injury (04/23/24 1207) Readmission Risk Score: 17.2 (05/22/24 0801) AM-PAC Score With Stairs : 22 (05/22/24 0836) Caregiver Information Patient Contacts Name Relation Home Work Mobile Maya Bruce Sibling [phone] Margi Menezes Friend [phone] Mariangel Sullivan (friend) Friend [phone] Transition of Care Checklist Transition of Care Checklist (aka Readmission Risk Score) Discharge Disposition: Post-Acute (04/28/24917) Narrative: CM has been following Marlene's hospital course. Discussed in IDT rounds. Marlene is currently medically stable for discharge. CM spoke to Agnieszka at [employer] [facility] she is unable to accept patient in [place] pending status at any of her buildings. Referral placed to [facility]. CM will continue to follow for additional discharge needs/plans. Anticipated Transportation at Discharge: [facility] Patient/Family Expectations: SNF Transition Planning Transition Planning Transition Plan/Considerations: Discussed at Interdisciplinary Team / Boost Rounds (04/28/24917) Insurance Considerations: Other - Comment (MA pending) (04/28/24917) Referral to Community Agency : N/A (04/28/24917) Post-Acute Care needs identified and Referrals Completed: Occupational Therapy;Physical Therapy;Speech Therapy (04/28/24917) Agency Choice Due to: Patient preference (04/28/24917) Additional Considerations: Care Management will continue to monitor and assist with discharge planning needs * Ancillary Progress Note - Cheri Sahu PTA - 05/22/2024 11:42 AM EDT PROGRESS NOTE - Physical Therapy [facility] [address] [address] Name: Yakov Keller [place] [facility] Date: 05/22/2024 Time: 11:42 AM Yakov Keller is a/an 54 year old female. Patient Status: Inpatient Insurance: Pay[place]: [place] Plan[place] Product Type: *No Product type* Patient Seen: at bedside, nursing cleared patient for therapy Patient Identified By: Name, ID Band and Date Diagnosis: discitis, OM of thoracic spine; s/p C3-T1, T7-11 laminectomies for decompression and washout of epidural abscess on 04/22/24 (05/22/24 114) Status of treatment: Treatment completed (05/22/24 114) Orders: PT evaluation and treatment (05/22/24 114) Weight Bearing Status: Weight bearing as tolerated (05/22/24 114) Precautions: Alarms;Falls;Safety;Spine precautions;Peralta (05/22/24 114) Total Treatment Time--free text: 18 (05/22/24 114) Subjective: Patient stated, "Perfect I was just going to ask if I could go for another walk. Pain: Patient has complaints of pain. Pain located iin her lower back. Patient did not formally rate pain however reported that it was "only sore." Primary nurse aware. P.T. Bed Mobility Roll (Right): Supervision (05/22/24 114) Roll (Left): Supervision (05/22/24 114) Sidelying-Sit: Contact Guard (05/22/24 114) Sit-Sidelying: Contact Guard (05/22/24 114) Transfers Sit-Stand: Contact Guard (05/22/24 1142) Stand-Sit: Contact Guard (05/22/24 114) W/C-Bed/Mat: Minimal Assistance (x2) (05/10/24 1203) Ambulation: Distance ambulated (feet): 20 + 60 + 60 Assistive Device: Rolling walker Assist: Minimal Assistance Balance Sit (Static): Fair (05/22/24 1142) Sit (Dynamic): Fair (05/22/24 114) Stand (Static): (fair -) (05/22/24 114) Stand (Dynamic): (poor +) (05/22/24 114) Patient and or Family Goal(s): to get well Topic of Education: Safety with mobility Extremity Exercise Sitting: Hip;Knee;Ankle (05/04/24 1002) Hip : Bilateral LE;Flexion;Adduction;Abduction;1 set of 10 (05/04/24 1002) Knee : Bilateral LE;Flexion;Extension;1 set of 10 (05/04/24 1002) Ankle: Bilateral LE;Plantar flexion;Dorsiflexion;1 set of 10 (05/04/24 1002) Method of Education: Verbal discussion and explanation provided to patient: verbalized understanding and or agreement of this information and demonstrated the exercise and or task Treatment Provided: Gait Training 18 minutes: gait training with rolling walker Alarm Status Patient positioned in: Bed (05/22/24 114) With: Bed alarm intact and functioning and call peres in reach (05/22/241141) Patient Education Review of Precautions: Safety;Spine Precautions (05/22/24 114) Safety Awareness: Patient verbalizes insight of current deficits;Patient demonstrates carryover of insight during functional tasks;Patient can communicate basic needs;Needs cueing supervision (05/22/241141) Preferred learning method: Combination (05/22/24 114) Barriers to learning: Medical Status (05/22/24 114) Method of Education: Verbalized to patient;Patient demonstrated task (05/22/24 114) Assessment: Patient was seen supine in bed upon arrival and agreeable to work with physical therapyservices. Patient recited spinal precautions prior to mobility. Patient performed bed mobility withsupervision to contact guard assist while maintaining spinal precautions via log roll technique andincreased verbal cues for body mechanics. Patient performed sit to stand and sit to sit with a contact guard assist for the bed and the toilet while ambulated 20 feet to the toilet using the rolling walker and a minimal assist. Patient also ambulated an additional 60 feet in hallway for 2 trialswith a standing rest break in between using the rolling walker and a minimal assist. Patient continues to experience L knee buckling with fatigue and was noted to experience slight R knee hyperextension with ambulation requiring increased verbal cues to correct. Patient returned to supine and was left supine in bed with pillows for comfort pressure bed alarm activated, and call peres within reach.Patient continues to progress when working with physical therapy services by increasing ambulatory d istance/tolerance however continues to require a minimal assistance due to unsteadiness. Please consider post-acute care services which may include home health, senior living, outpatient therapy orinpatient rehabilitation. The level of care will be determined in collaboration with patient, family/caregiver and care team members. Deficits requiring P.T. treatment needs: Safety;Mobility;Balance;Weakness;Endurance;Lower extremitystrength (05/22/24 1142) Plan: Continue with current treatment plan established on evaluation. AM PAC Score with Stairs: 17 A portion of this AM-PAC assessment not scored based on functional assessment; rather clinical decision making utilized based on current findings and/or prior level of function. Please refer to future AM-PAC calculations of functional ability as they become available. * Ancillary Progress Note - Norma Joyner COTA - 05/22/2024 9:20 AM EDT PROGRESS NOTE - Occupational Therapy [facility] [address] Name: Yakov Keller Location: [facility] Date: 05/22/2024 Time: 9:20 AM Yakov Keller is a 54 year old female. Patient Status: Inpatient Insurance: Payor[place] Plan: [place] Product Type: *No Product type* Patient Seen: at bedside, nursing cleared patient for therapy Patient Identified By: Name, ID Band and Date Diagnosis: s/p C3-T1, T7-11 laminectomies (05/22/24844) Status of treatment: Treatment completed (05/22/24844) Orders: OT evaluation and treatment (05/22/24844) Weight Bearing Status: Weight bearing as tolerated (05/22/24844) Precautions: Alarms;Falls;Safety (05/22/24844) Total Treatment Time: 23 (05/22/24844) Subjective: Agreeable to therapy Pain: No complaints of pain Observations Consciousness: Alert (05/22/24844) Orientation: Oriented times 4 (05/22/24844) Cognitive Limitations: Attention to task;Problem solving (05/12/24 1018) Psychosocial: Patient can communicate basic needs;Patient can converse in a social setting (05/22/24844) Sitting posture: Forward head;Rounded shoulders (05/22/24844) Standing posture: Forward head;Rounded shoulders (05/22/24844) Safety awareness: Needs cueing supervision. (05/22/24844) Other Findings Endurance: Sitting tolerance;Functional activity;Standing tolerance;Fair (05/22/24844) Coordination: LUE;RUE;Gross motor;Fine motor;Intact (04/23/241117) Current Functional Status: Activities of Daily Living: Self Care Able to provide self care: Yes (04/23/24 111) Feeding: Not Tested (05/18/24 1215) Grooming: Supervision (Please comment) (( Close) in stance to brush teeth, brush hair, and wash face- 1 hand supported on sink for balance and safety) (05/22/24844) Toileting: Contact Guard (pulling pants up unsupported and posterior hygiene all in stance) (05/22/24844) Dressing Upper Body: Supervision (Please comment) (kelby shirt over head and doff gown) (05/22/24844) Lower Body: Supervision (Please comment) (kelby crocs seated) (05/22/24844) Bathing Upper Body: Supervision (Please comment) (seated) (05/22/24844) Lower Body: Supervision (Please comment) (seated) (05/22/24844) Functional Ambulation Assistive Device: Rolling walker (05/22/24844) Distance in feet:: 15 (' X2 and 10' X2) (05/22/24844) Level of Assistance: Contact Guard to Min A 2/2 unsteadiness(05/22/24844) Bed Mobility Roll (Right): Supervision (05/22/24844) Roll (Left): Not Tested (05/22/24844) Supine-Sit: Not Tested (05/22/24844) Sidelying - Sit: Supervision (Please comment) (05/22/24844) OT Transfers Sit-Stand: Contact Guard (05/22/24844) Stand-Sit: Contact Guard (05/22/24844) Bed-Chair: Not Tested (05/22/24844) Toilet: Contact Guard (L grab bar) (05/22/24844) Balance Sit (Static): Fair (05/22/24844) Sit (Dynamic): Fair (05/22/24844) Stand (Static): (fair -) (05/22/24844) Stand (Dynamic): (fair to fair -) (05/22/24844) Patient Education Education Topic: Role of OT;Plan of care goals (05/22/24844) Review of Precautions: Safety;Fall;Spine Precautions (05/22/24844) Education Provided to: Patient (05/22/24844) Response to Education: Receptive and agreeable to education (05/22/24844) Barriers to learning: Medical status (05/22/24844) Preferred learning method: Combination (05/22/24844) Alarm Status Patient positioned in: Chair (05/22/24844) With: Pressure pad alarm intact and functioning and call peres in reach (05/22/24844) Following session patient seated OOB in chair with chair alarm activated and cord plugged into callbell system. Treatment Provided: Self Residential Management Trainin minutes Deficits requiring O.T. treatment needs: ADL/self- care;Balance;Endurance;Functional mobility;Safety;Weakness (05/22/24844) Assessment: Patient was found laying supine in bed upon arrival to room; arrival to room; awake andalert. She is performing bed mobility with supervision level; Patient donned crocs in preparation for functional transfers and functional ambulation with device . Continues to require assistance of 1for functional ambulation with device provided with contact guard assistance to min A due to unsteadiness 2/2 L LE weakness. She was able to transition sit to stand/stand to sit to/from the toilet with riser using grab bar and to/from the chair provided with contact guard assistance. She required verbal cues for safe transfer techniques. Patient completed clothing management/posterior hygiene in stance provided with contact guard to min A due unsteadiness when pulling shorts up and down unsupported. Patient stood at the sink performing grooming tasks in stance with close supervision provided with 1 hand supported on the sink for balance and safety ( chair placed behind patient for rest breaks. Patient able to kelby shirt overhead while seated in chair provided with setup only. Please consider post- acute care services which may include home health, senior living, outpatient therapy or inpatient rehabilitation. The level of care will be determined in collaboration with patient, family/caregiver and care team members. Plan: Will continue to follow patient per plan of care. Anticipated Frequency (on eval): 3 to 5 times per week (05/22/24844) Equipment Equipment used in Therapy: Grab bars;Rolling walker (05/22/24844) Equipment Needs Equipment needs: Rolling walker (05/15/24 1509) AM-PAC Help From Another Person Eating Meals: A little (05/22/24844) Help From Another Person Taking Care of Personal Grooming: A little (05/22/24844) Help From Another Person To Put On/Take Off Upper Body Clothing: A little (05/22/24844) Help From Another Person To Put On/Take Off Lower Body Clothing: A little (05/22/24844) Help From Another Person Toileting: A little (05/22/24844) Help From Another Person Bathing: A little (05/22/24844) OT AM-PAC Score: 18 (05/22/24844) OT AM-PAC t-Scale Score: 38.66 (05/22/24844) JH HLM (Highest Level of Mobility) Goal: Level 7 walk 25 feet or more (05/22/24 0000) A portion of this AM-PAC assessment not scored based on functional assessment; rather clinical decision making utilized based on current findings and/or prior level of function. Please refer to future AM-PAC calculations of functional ability as they become available. * Care Plan - Nicholas Galvez RN - 05/22/2024 6:14 AM EDT Clinical Goal(s): Pt will be free from falls this shift (05/22/24 0000) Possible barriers to meeting goal(s)/advancing plan of care: Unsteady gait Stability of the patient: Moderately unstable - medium risk of patient condition declining or worsening Summary regarding today's goal(s): Met: Recommendations: continue plan of care * Care Plan - Nicholas Galvez RN - 05/21/2024 6:47 AM EDT Clinical Goal(s): Patient will be free from falls or injury (05/21/24 0700) Possible barriers to meeting goal(s)/advancing plan of care: unsteady gait Stability of the patient: Moderately stable - low risk of patient condition declining or worsening Summary regarding today's goal(s): Met: Recommendations: Continue plan of care * Care Plan - Marisol Palacio RN - 05/20/2024 7:38 AM EDT Goal (s): Patient will be free fro falls Possible barriers to meeting goal(s)/advancing plan of care: Weakness Stability of the patient: Moderately stable - low risk of patient condition declining or worsening Summary regarding today's goal(s): Met: Patient remained free from falls. Recommendations: Falls precaution, hourly rounds, assist with ambulation and transfers. * Care Plan - Rafy Prince RN - 05/19/2024 6:58 PM EDT Clinical Goal(s): pt will be free from falls by end of shift (05/19/24 0700) Possible barriers to meeting goal(s)/advancing plan of care: gait instability Stability of the patient: Moderately stable - low risk of patient condition declining or worsening Summary regarding today's goal(s): Met: pt remained free from falls by end of shift Recommendations: continue hourly rounding * Progress Notes - Post-Op Angely - Bhanu Montero MD - 05/19/2024 3:17 PM EDT I saw the patient this afternoon, overall she was looking very well, mental status has improved substantially since last I saw her, no further restraints. Incision is very well healed. Good strength and she denies any numbness weakness or any other neurologic deficit. Continue current management, antibiotics, progress towards discharge with rehabilitation. I will see her in the office at about 2 months from surgery. Of note she does have a thoracic likely meningioma but this is not symptomatic at the current time. I would like to get her through the abscess before considering addressing this. Bhanu Montero [facility] This document was dictated using voice recognition software. Please excuse any errors. * Ancillary Progress Note - Johanny Doss RN - 05/19/2024 12:08 PM EDT CARE MANAGEMENT - ADULT TRANSITION NOTE [facility] [place] [address] Name: Yakov Keller [place] [facility] Date: 05/19/2024 Time: 12:08 PM Risk Stratification Risk Stratification Psycho Social / Medical Concerns Identified: Adjustment to illness/injury (04/23/24 1207) Readmission Risk Score: 16.9 (05/19/24 1201) AM-PAC Score With Stairs : 20 (05/19/24 0824) Caregiver Information Patient Contacts Name Relation Home Work Mobile Maya Bruce Sibling [phone] ClifMargi Friend [phone] Mariangel Sullivan (friend) Friend [phone] Transition of Care Checklist Transition of Care Checklist (aka Readmission Risk Score) Discharge Disposition: Post-Acute (04/28/24 0918) Narrative: CM has been following Marlene's hospital course. Discussed in IDT rounds. Marlene is currently medically stable for discharge. Facilities unable to take Marlene in [place] pending status. Anticipate CM and pt to call [facility] next Saturday 05/26 to choose supplement insurance. IV Cefazolin until 06/18. Message left for Agnieszka, [facility] CM will continue to follow for additional discharge needs/plans. Anticipated Transportation at Discharge: [facility] Patient/Family Expectations: SNF Transition Planning Transition Planning Transition Plan/Considerations: Discussed at Interdisciplinary Team / Boost Rounds (04/28/24917) Insurance Considerations: Other - Comment ([place]) (04/28/24917) Referral to Community Agency : N/A (04/28/24917) Post-Acute Care needs identified and Referrals Completed: Occupational Therapy;Physical Therapy;Speech Therapy (04/28/24917) Agency Choice Due to: Patient preference (04/28/24917) Additional Considerations: Care Management will continue to monitor and assist with discharge planning needs * Care Plan - Reagan Son RN - 05/19/2024 6:23 AM EDT Clinical Goal(s): Pt will remain free from falls during this shift (05/18/24 2300) Possible barriers to meeting goal(s)/advancing plan of care: weakness, spinal infection Stability of the patient: Moderately stable - low risk of patient condition declining or worsening Summary regarding today's goal(s): Met: Pt remained free from falls during this shift Recommendations: Continue fall precautions and purposeful hourly rounding * Care Plan - Cassie Yee RN - 05/18/2024 3:18 PM EDT Clinical Goal(s): Patient will remain free from injury for duration of shift (05/18/24 0800) Possible barriers to meeting goal(s)/advancing plan of care: Weakness Stability of the patient: Moderately stable - low risk of patient condition declining or worsening Summary regarding today's goal(s): Met: Met Recommendations: Continue to implement safety precautions * Ancillary Progress Note - Cheri Sahu PTA - 05/18/2024 12:27 PM EDT PROGRESS NOTE - Physical Therapy [facility] [address] Name: Yakov Keller Location: [facility] Date: 05/18/2024 Time: 12:27 PM Yakov Keller is a/an 54 year old female. Patient Status: Inpatient Insurance: Payor: MEDICAID [place] Plan: MEDICAID [place] Product Type: *No Product type* Patient Seen: at bedside, nursing cleared patient for therapy Patient Identified By: Name, ID Band and Date Diagnosis: discitis, OM of thoracic spine; s/p C3-T1, T7-11 laminectomies for decompression and washout of epidural abscess on 04/22/24 (05/18/241226) Status of treatment: Treatment completed (05/18/241226) Orders: PT evaluation and treatment (05/18/241226) Weight Bearing Status: Weight bearing as tolerated (05/18/241226) Precautions: Alarms;Falls;Safety;Spine precautions;Peralta (05/18/241226) Total Treatment Time--free text: 15 (05/18/241226) Subjective: Patient was agreeable to work with physical therapy services. Pain: No complaints of pain Transfers Sit-Stand: Contact Guard (05/18/241226) Stand-Sit: Contact Guard (05/18/241226) W/C-Bed/Mat: Minimal Assistance (x2) (05/10/24 1203) Ambulation: Distance ambulated (feet): 50 Assistive Device: Rolling walker Assist: Minimal Assistance Balance Sit (Static): Fair (05/18/241226) Sit (Dynamic): (fair -) (05/18/241226) Stand (Static): (fair -) (05/18/241226) Stand (Dynamic): (poor +) (05/18/241226) Patient and or Family Goal(s): to get well Topic of Education: Safety with mobility Method of Education: Verbal discussion and explanation provided to patient: verbalized understanding and or agreement of this information and demonstrated the exercise and or task Treatment Provided: Gait Training 15 minutes: gait training with rolling walker Alarm Status Patient positioned in: Chair (05/18/241226) With: Pressure pad alarm intact and functioning and call peres in reach (05/18/241226) Following session patient seated OOB in chair with chair alarm activated and cord plugged into callbell system. Patient Education Review of Precautions: Safety;Spine Precautions (05/18/241226) Safety Awareness: Patient verbalizes insight of current deficits;Patient demonstrates carryover of insight during functional tasks;Patient can communicate basic needs;Needs cueing supervision (05/18/241226) Preferred learning method: Combination (05/18/241226) Barriers to learning: Medical Status (05/18/241226) Method of Education: Verbalized to patient;Patient demonstrated task (05/18/241226) Assessment: Patient was seen reclined int he chair upon arrival and agreeable to work with physicaltherapy services. Patient performed sit to stand/stand to sit from the chair with a contact guard assist and ambulated 50 feet using the rolling walker, minimal assist, and chair follow. Throughout ambulation patient required increased cues to low gait speed for safety and to promote hip/knee flexion. Patient demonstrated decrease bilateral LE coordination this session with L knee buckling and LLE lag when fatigued. Primary nurse made aware. Patient declined further ambulation at this time due to fatigue. Ended session with patient reclined in the chair with pillows for comfort, pressure pad alarm activated, and call peres with reach. Patient continued to progress when working with physical therapy services and increased ambulatory distance this session. Please consider post-acute care services which may include home health, senior living, outpatient therapy or inpatient rehabilitation. The level of care will be determined in collaboration with patient, family/caregiver and care team members. Deficits requiring P.T. treatment needs: Safety;Mobility;Balance;Weakness;Endurance;Lower extremitystrength (05/18/241226) Plan: Continue with current treatment plan established on evaluation. AM PAC Score with Stairs: 16 A portion of this AM-PAC assessment not scored based on functional assessment; rather clinical decision making utilized based on current findings and/or prior level of function. Please refer to future AM-PAC calculations of functional ability as they become available. * Ancillary Progress Note - Norma Joyner COTA - 05/18/2024 12:15 PM EDT PROGRESS NOTE - Occupational Therapy [facility] [address] Name: Yakov Keller Location: [facility] Date: 05/18/2024 Time: 12:45 PM Yakov Keller is a 54 year old female. Patient Status: Inpatient Insurance: Payor: MEDICAID [place] Plan: MEDICAID [place] Product Type: *No Product type* Patient Seen: at bedside, nursing cleared patient for therapy Patient Identified By: Name, ID Band and Date Diagnosis: s/p C3-T1, T7-11 laminectomies (05/18/241214) Status of treatment: Treatment completed (05/18/241214) Orders: OT evaluation and treatment (05/18/241214) Weight Bearing Status: Weight bearing as tolerated (05/18/241214) Precautions: Alarms;Falls;Safety (05/18/241214) Total Treatment Time: 15 (05/18/241214) Subjective: Pleasant and cooperative Pain: No complaints of pain Observations Consciousness: Alert (05/18/241214) Orientation: Oriented times 4 (05/18/241214) Cognitive Limitations: Attention to task;Problem solving (05/12/24 1018) Psychosocial: Patient can communicate basic needs;Patient can converse in a social setting (05/18/241214) Sitting posture: Forward head;Rounded shoulders (05/18/241214) Standing posture: Forward head;Rounded shoulders (05/18/241214) Safety awareness: Needs cueing supervision. (05/18/241214) Other Findings Endurance: Sitting tolerance;Functional activity;Standing tolerance;Fair (05/18/241214) Coordination: LUE;RUE;Gross motor;Fine motor;Intact (04/23/24 111) Current Functional Status: Activities of Daily Living: Self Care Able to provide self care: Yes (04/23/24 111) Feeding: Not Tested (05/18/241214) Grooming: Supervision (Please comment) (wash hands with wipe) (05/18/241214) Toileting: Contact Guard (to min A for clothing management in stance; Supervision for hygiene seated) (05/18/241214) Dressing Upper Body: Minimal Assistance (kelby robe) (05/18/241214) Lower Body: Minimal Assistance (R sock- seated in recliner chair) (05/18/241214) Functional Ambulation Assistive Device: Rolling walker (05/18/241214) Distance in feet:: 15 (' X2) (05/18/241214) Level of Assistance: Contact Guard (to Min A to/from the bathroom) (05/18/241214) Bed Mobility Roll (Right): Not Tested (05/18/241214) Roll (Left): Not Tested (05/18/241214) Supine-Sit: Not Tested (05/18/241214) Sidelying - Sit: Not Tested (OOB upon arrival to room) (05/18/241214) OT Transfers Sit-Stand: Contact Guard (05/18/241214) Stand-Sit: Contact Guard (05/18/241214) Bed-Chair: Not Tested (05/18/241214) Toilet: Contact Guard (L grab bar from the regular toilet) (05/18/241214) Balance Sit (Static): Fair (05/18/241214) Sit (Dynamic): Fair (-) (05/18/241214) Stand (Static): (fair -) (05/18/241214) Stand (Dynamic): (fair - to poor +) (05/18/241214) Patient Education Education Topic: Role of OT;Plan of care goals (05/18/241214) Review of Precautions: Safety;Fall;Spine Precautions (05/18/241214) Education Provided to: Patient (05/18/241214) Response to Education: Receptive and agreeable to education (05/18/241214) Barriers to learning: Medical status (05/18/241214) Preferred learning method: Combination (05/18/241214) Alarm Status Patient positioned in: Chair (05/18/241214) With: Pressure pad alarm intact and functioning and call peres in reach (05/18/241214) Following session patient seated OOB in chair with chair alarm activated and cord plugged into callbell system. Treatment Provided: Self Residential Management Trainin minutes Deficits requiring O.T. treatment needs: ADL/self- care;Balance;Endurance;Functional mobility;Safety;Weakness (05/18/241214) Assessment: Patient was seated in chair upon arrival to room; awake and alert. Patient required slightly more assistance for LE dressing when donning shorts to thread L LE through pant leg and R slipper sock due to decreased functional reach and decreased strength when using cross over technique. Improvement with functional ambulation with device this session. Patient was able to ambulate to and from the bathroom with use of rolling walker and contact guard assistance to min A due to unsteadiness 2/2 L LE weakness. She was able to transition stand to sit and rise to/from the toilet using grabbar and to rolling walker provided with contact guard assistance. She required verbal cues for safetransfer techniques. Patient completed clothing management in stance provided with contact guard tomin A due unsteadiness when pulling shorts up and down unsupported. Please consider post-acute careservices which may include home health, senior living, outpatient therapy or inpatient rehabilitation. The level of care will be determined in collaboration with patient, family/caregiver and care team members. Plan: Will continue to follow patient per plan of care. Anticipated Frequency (on eval): 3 to 5 times per week (05/18/241214) Equipment Equipment used in Therapy: Grab bars;Rolling walker (05/18/241214) Equipment Needs Equipment needs: Rolling walker (05/15/24 1509) AM-PAC Help From Another Person Eating Meals: A little (05/18/241214) Help From Another Person Taking Care of Personal Grooming: A little (05/18/241214) Help From Another Person To Put On/Take Off Upper Body Clothing: A little (05/18/241214) Help From Another Person To Put On/Take Off Lower Body Clothing: A little (05/18/241214) Help From Another Person Toileting: A little (05/18/241214) Help From Another Person Bathing: A lot (05/18/241214) OT AM-PAC Score: 17 (05/18/241214) OT AM-PAC t-Scale Score: 37.26 (05/18/241214) HLM (Highest Level of Mobility) Goal: Level 5 standing (1 or more minutes) (05/18/24 0800) A portion of this AM-PAC assessment not scored based on functional assessment ; rather clinical decision making utilized based on current findings and/or prior level of function. Please refer to future AM-PAC calculations of functional ability as they become available. * Ancillary Progress Note - Johanny Doss RN - 05/18/2024 11:34 AM EDT CARE MANAGEMENT - ADULT TRANSITION NOTE [facility] [address] Name: Yakov Keller Location[place] [facility] Date: 05/18/2024 Time: 11:40 AM Risk Stratification Risk Stratification Psycho Social / Medical Concerns Identified: Adjustment to illness/injury (04/23/24 1207) Readmission Risk Score: 16.62 (05/18/24 0801) AM-PAC Score With Stairs : 17 (05/18/24 0800) Caregiver Information Patient Contacts Name Relation Home Work Mobile Maya Bruce Sibling [phone] Margi Menezes Friend [phone] KaylynnskyMariangel (friend) Friend [phone] Transition of Care Checklist Transition of Care Checklist (aka Readmission Risk Score) Discharge Disposition: Post-Acute (04/28/24 0918) Narrative: [facility] has been following Marlene's hospital course. Discussed in IDT rounds. Marlene is currently medically stable for discharge. Options letter was received. CM and patient called [facility] to choose supplement. Found that she is on day , anticipate decision on 05/26. [facility] and Marlene is able to call and choose supplement. In discussion with Marlene, she feels that [facility] will be best as she is in [facility] and has been going to [facility] clinics in the past. In the past, patient was meeting criteria for BLS transport, she has awareness and does have decision making capabilities. She now meets criteria for wheelchair van follow Mode of Transportation policy. Referrals reopened to [facility], [facility], [facility]. Facilities were called for possible acceptance in [place] pending status. Megan (Monisha) was updated, CM will cont to be in contact with her when closer to 10/4. CM will continue to follow for additional discharge needs/plans. Anticipated Transportation at Discharge: [facility] Patient/Family Expectations: SNF Transition Planning Transition Planning Transition Plan/Considerations: Discussed at Interdisciplinary Team / Boost Rounds (04/28/24917) Insurance Considerations: Other - Comment ([place]) (04/28/24917) Referral to Community Agency : N/A (04/28/24917) Post-Acute Care needs identified and Referrals Completed: Occupational Therapy;Physical Therapy;Speech Therapy (04/28/24917) Agency Choice Due to: Patient preference (04/28/24917) Additional Considerations: Care Management will continue to monitor and assist with discharge planning needs * Care Plan - Alva Mcdaniels RN - 05/18/2024 12:15 AM EDT Clinical Goal(s): patient will be free of falls this shift (05/17/24 2320) Possible barriers to meeting goal(s)/advancing plan of care: BLE weakness, leg buckling Stability of the patient: Moderately stable - low risk of patient condition declining or worsening Summary regarding today's goal(s): Met: free of falls this shift Recommendations: Hourly rounding, call peres/belongings within reach, non-slip footwear, bed at low level/alarmed, walker at bedside * Care Plan - Cassie Yee RN - 05/17/2024 2:26 PM EDT Clinical Goal(s): Patient will remain free from injury for duration of shift (05/17/24 0800) Possible barriers to meeting goal(s)/advancing plan of care: Weakness Stability of the patient: Moderately stable - low risk of patient condition declining or worsening Summary regarding today's goal(s): Met: Met Recommendations: Continue to implement safety precautions * Ancillary Progress Note - Mei Langley RN - 05/17/2024 11:14 AM EDT CARE MANAGEMENT - ADULT TRANSITION NOTE [address] [address] Name: Yakov Keller Location[place] [facility] Date: 05/17/2024 Time: 11:14 AM Risk Stratification Risk Stratification Psycho Social / Medical Concerns Identified: Adjustment to illness/injury (04/23/24 1207) Readmission Risk Score: 16.55 (05/17/24 0801) AM-PAC Score With Stairs : 17 (05/16/245) Caregiver Information Patient Contacts Name Relation Home Work Mobile Maya Bruce Sibling [phone] Margi Menezes Friend [phone] Mariangel Sullivan (friend) Friend [phone] Transition of Care Checklist Transition of Care Checklist (aka Readmission Risk Score) Discharge Disposition: Post-Acute (04/28/24917) Narrative: Pt medically ready for d/c. I made several referral to facilities with follow up. The facilities referred to [facility], [facility] is considering and will get back to me. Anticipated Transportation at Discharge: BLS Patient/Family Expectations: SNF Transition Planning Transition Planning Transition Plan/Considerations: Discussed at Interdisciplinary Team / Boost Rounds (04/28/24917) Insurance Considerations: Other - Comment ([place]) (04/28/24917) Referral to Community Agency : N/A (04/28/24917) Post-Acute Care needs identified and Referrals Completed: Occupational Therapy;Physical Therapy;Speech Therapy (04/28/24917) Agency Choice Due to: Patient preference (04/28/24917) Additional Considerations: none Care Management will continue to monitor and assist with discharge planning needs * Ancillary Progress Note - Johanny Doss RN - 05/17/2024 11:05 AM EDT CARE MANAGEMENT - ADULT TRANSITION NOTE [address] [address] Name: Yakov Keller Location: [facility] Date: 05/17/2024 Time: 11:05 AM Risk Stratification Risk Stratification Psycho Social / Medical Concerns Identified: Adjustment to illness/injury (04/23/24 1207) Readmission Risk Score: 16.55 (05/17/24 0801) AM-PAC Score With Stairs : 17 (05/16/245) Caregiver Information Patient Contacts Name Relation Home Work Mobile Maya Bruce Sibling [phone] Margi Menezes Friend [phone] Mariangel Sullivan (friend) Friend [phone] Transition of Care Checklist Transition of Care Checklist (aka Readmission Risk Score) Discharge Disposition: Post-Acute (04/28/24917) Narrative: CM has been following Marlene's hospital course. Discussed in IDT rounds. Marlene is currently medically stable for discharge. Foster sister, Maya was called to choose [place] supplement, number and website given. Monisha at [facility] was updated. This CM will reach out with [place] supplement info. CM will continue to follow for additional discharge needs/plans. Anticipated Transportation at Discharge: BLS - pending Patient/Family Expectations: SNF Transition Planning Transition Planning Transition Plan/Considerations: Discussed at Interdisciplinary Team / Boost Rounds (04/28/24917) Insurance Considerations: Other - Comment ([place]) (04/28/24917) Referral to Community Agency : N/A (04/28/24917) Post-Acute Care needs identified and Referrals Completed: Occupational Therapy;Physical Therapy;Speech Therapy (04/28/24917) Agency Choice Due to: Patient preference (04/28/24917) Additional Considerations: Care Management will continue to monitor and assist with discharge planning needs * Care Plan - Alva Mcdaniels RN - 05/17/2024 2:36 AM EDT Clinical Goal(s): patient will be free of falls this shift (05/16/24 2300) Possible barriers to meeting goal(s)/advancing plan of care: Weakness BLE Stability of the patient: Moderately stable - low risk of patient condition declining or worsening Summary regarding today's goal(s): Met: free of falls this shift Recommendations: Hourly rounding, call peres/belongings within reach, non-slip footwear, bed at low level/alarmed * Ancillary Progress Note - Mei Langley RN - 05/16/2024 11:21 AM EDT CARE MANAGEMENT - ADULT TRANSITION NOTE [address] [address] Name: Yakov Keller Location: [facility] Date: 05/16/2024 Time: 11:21 AM Risk Stratification Risk Stratification Psycho Social / Medical Concerns Identified: Adjustment to illness/injury (04/23/24 1207) Readmission Risk Score: 15.97 (05/16/24 0800) AM-PAC Score With Stairs : 17 (05/15/24 1920) Caregiver Information Patient Contacts Name Relation Home Work Mobile Maya Bruce Sibling [phone] Margi Menezes Friend [phone] Mariangel Sullivan (friend) Friend [phone] Transition of Care Checklist Transition of Care Checklist (aka Readmission Risk Score) Discharge Disposition: Post-Acute (04/28/24917) Narrative: Called [facility] today see when they can receive the Pt. The facility will get back to CM regarding admission. They are not sure if they can accept. CM to continue to follow needs. Called [facility] admissions to see if they can admit. Will review the admission and get back to CM. Called [facility] [place] to see if they can admit the Pt. VM left. Met with the Pt @ bedside and she has no preference as to where she goes for rehab. Anticipated Transportation at Discharge: BLS Patient/Family Expectations: SNF Transition Planning Transition Planning Transition Plan/Considerations: Discussed at Interdisciplinary Team / Boost Rounds (04/28/24917) Insurance Considerations: Other - Comment ([place]) (04/28/24917) Referral to Community Agency : N/A (04/28/24917) Post-Acute Care needs identified and Referrals Completed: Occupational Therapy;Physical Therapy;Speech Therapy (04/28/24917) Agency Choice Due to: Patient preference (04/28/24917) Additional Considerations: none Care Management will continue to monitor and assist with discharge planning needs * Ancillary Progress Note - Larissa Urrutia RDN - 05/16/2024 10:50 AM EDT CLINICAL NUTRITION ADULT RISK ASSESSMENT [address] [address] Name: Yakov Keller Location: [facility] Date: 05/16/2024 Time: 10:50 AM How patient was identified (select 2): Wristband and Name Yakov Keller is a 54 year old female being assessed for clinical nutrition risk related to follow-up Primary diagnosis: admitted with discitis, osteomyelitis Other pertinent information: patient see this morning ate ~50% of her meal. Reports that she did not want to eat more needed an enema. Patient reports she typically weighs 140-145lb. Current weight is down from this question recent weights showing ~12kg loss in 2 days. Nutrition focused physical exam completed and noted a mild level of fat and muscle loss. Patient has been hospitalized for over a month. Discussed trying a protein/oral nutritional supplement patient declined offer at this time. Anthropometrics Measurements Admission weight (for dietitians): 68 kg Height: 157.5 cm (5' 2") (04/20/24 1721) Weight: 53.4 kg (117 lb 12.8 oz) (05/16/24 0654) BMI: 27.43 (04/20/24 172) Usual Body Weight: 140-145lb per patient Diet History: Previously followed diet: Regular Food Allergies/Intolerances: no known Current Diet/Supplements: Diet: Regular Oral Nutrition Supplement (ONS): none Pertinent medications/vitamins/minerals/supplements: Ancef, melatonin, fiber packet, miralax, senokot-s, RISK FACTORS: Adult Energy Intake: No significant decrease Interpretation of Weight Change: question recent weights Skin: Intact Nutrition Focused Physical Exam: Completed: 9/24/24 Subcutaneous Fat: Orbital fat pads: Mild Buccal fat: Mild Tricep: Mild Muscle Loss: Temples: Mild Clavicles: Mild Shoulders: Mild Interosseous: Mild Quadriceps: Mild Calves: Mild NUTRITION RISK CATEGORY: Nutrition Risk Category: Low/Moderate (0-1 factors) Clinical Nutrition Recommendations: Diet: Continue current nutrition plan NUTRITION INTERVENTION/PLAN: Continue current care plan Will follow and adjust nutritional plan as medical condition requires. Please contact for change(s)in patient condition requiring earlier intervention. Larissa MCGRATH [facility] Clinical Nutrition Services [place] Text / x [phone] * Ancillary Progress Note - Jessica Montano OSA - 05/16/2024 9:29 AM EDT Patient's LOC Determination and MA-51 were received from [facility] Aging Office and have been scanned into the chart. Saute Chef, Mei Langley RN and Nori Howard were made aware of same. Jessica [place] [address] Email: [email or web address] Mail Code [phone] * Care Plan - Luna Aguilar RN - 05/16/2024 7:45 AM EDT Clinical Goal(s): Pt will resolve constipation on shift (05/16/24 0700) Possible barriers to meeting goal(s)/advancing plan of care: Constipation Stability of the patient: Moderately stable - low risk of patient condition declining or worsening Summary regarding today's goal(s): Not Met: Recommendations: Continue purposeful rounding * Care Plan - Alva Mcdaniels RN - 05/16/2024 12:47 AM EDT Clinical Goal(s): patient will have a BM this shift (05/15/242306) Possible barriers to meeting goal(s)/advancing plan of care: Constipation Stability of the patient: Moderately stable - low risk of patient condition declining or worsening Summary regarding today's goal(s): Not Met: no BM this shift Recommendations: stool softeners, encourage PO fluid intake and ambulation, offer the patient to use BSC hourly while awake * Ancillary Progress Note - Cheri Sahu PTA - 05/15/2024 3:32 PM EDT PROGRESS NOTE - Physical Therapy [facility] [address] Name: Yakov Keller Location: [id number] Date: 05/15/2024 Time: 3:32 PM Yakov Keller is a/an 54 year old female. Patient Status: Inpatient Insurance: Payor: [place] Plan: [place] Product Type: *No Product type* Patient Seen: at bedside, nursing cleared patient for therapy Patient Identified By: Name, ID Band and Date Diagnosis: discitis, OM of thoracic spine; s/p C3-T1, T7-11 laminectomies for decompression and washout of epidural abscess on 04/22/24 (05/15/24 153) Status of treatment: Treatment completed (05/15/241531) Orders: PT evaluation and treatment (05/15/241531) Weight Bearing Status: Weight bearing as tolerated (05/15/241531) Precautions: Alarms;Falls;Safety;Spine precautions;Peralta (05/15/24 153) Total Treatment Time--free text: (05/15/241531) Subjective: Sometimes I need to remind myself to take it easy. Pain: No complaints of pain P.T. Bed Mobility Roll (Right): Contact Guard (05/15/241531) Sidelying-Sit: Contact Guard (05/15/241531) Transfers Sit-Stand: Contact Guard (05/15/241531) Stand-Sit: Contact Guard (05/15/241531) Ambulation: Distance ambulated (feet): 6 + 20 Assistive Device: Rolling walker Assist: Minimal Assistance with chair follow Balance Sit (Static): Fair (05/15/241531) Sit (Dynamic): (fair -) (05/15/241531) Stand (Static): (fair -) (05/15/241531) Stand (Dynamic): (poor +) (05/15/241531) Patient and or Family Goal(s): to get well Topic of Education: Safety with mobility Method of Education: Verbal discussion and explanation provided to patient: verbalized understanding and or agreement of this information and demonstrated the exercise and or task Treatment Provided: Therapeutic Activities 10 minutes: bed mobility training transfer training Gait Training 13 minutes: gait training with rolling walker Alarm Status Patient positioned in: Chair (05/15/241531) With: Pressure pad alarm intact and functioning and call peres in reach (05/15/241531) Following session patient seated OOB in chair with chair alarm activated and cord plugged into callbell system. Patient Education Review of Precautions: Safety;Spine Precautions (05/15/241531) Safety Awareness: Patient verbalizes insight of current deficits;Patient can communicate basic needs;Needs cueing supervision (05/15/241531) Preferred learning method: Combination (05/15/241531) Barriers to learning: Medical Status (05/15/241531) Method of Education: Verbalized to patient;Patient demonstrated task (05/15/241531) Assessment: Patient was seen supine in bed upon arrival and agreeable to work with physical therapyservices. Patient was able to recite spinal precautions however required frequent cues throughout the session to maintain. Patient performed bed mobility with a contact guard assist and increased cues to perform the log roll technique to maintain spinal precautions. Patient performed 2 sit to stand/stand to sit transfers from the chair and the bed with a contact guard assist and increase cues forhand placement/safety. Patient also ambulated 6 feet and 20 feet this session using the rolling walker, minimal assist, and chair follow requiring one seated rest break in between due to light headedness which decreased with rest. Throughout ambulation patient required verbal/visual/tactile cues and assistance with rolling walker management and cues for obstacle avoidance. Patient also noted to have multiple small LOB posterior and to the L with slight L knee buckling with fatigue. Ended session with patient reclined int he chair with pillows for comfort, pressure pad alarm activated, and call peres within reach. Patient continues to progress when working with physical therapy services however was limited by lightheadedness and LLE fatigue this session. Please consider post-acute care services which may include home health, senior living, outpatient therapy or inpatient rehabilitation.The level of care will be determined in collaboration with patient, family/caregiver and care team members. Deficits requiring P.T. treatment needs: Safety;Mobility;Balance;Weakness;Endurance;Lower extremitystrength (05/15/24 1532) Plan: Continue with current treatment plan established on evaluation. AM PAC Score with Stairs: 16 A portion of this AM-PAC assessment not scored based on functional assessment; rather clinical decision making utilized based on current findings and/or prior level of function. Please refer to future AM-PAC calculations of functional ability as they become available. * Ancillary Progress Note - Molly Segovia COTA/L - 05/15/2024 3:09 PM EDT PROGRESS NOTE - Occupational Therapy [facility] [address] Name: Yakov Keller Location[place] [facility] Date: 05/15/2024 Time: 3:09 PM Yakov Keller is a 54 year old female. Patient Status: Inpatient Insurance: Payor: [place] Plan: MED[place]ID [place] Product Type: *No Product type* Patient Seen: at bedside, nursing cleared patient for therapy Patient Identified By: Name, ID Band and Date Diagnosis: s/p C3- T1, T7-11 laminectomies (05/15/24 1509) Status of treatment: Treatment completed (05/15/24 1509) Orders: OT evaluation and treatment (05/12/24 1018) Weight Bearing Status: Weight bearing as tolerated (05/15/24 1509) Precautions: Alarms;Falls;Safety;Spine Precautions (05/15/24 1509) Total Treatment Time: 23 (05/15/24 1509) Subjective: "When I'm doing PT they have to ratchet strap me back , because I give it my all." Pain: No complaints of pain Observations Consciousness: Alert (05/15/24 1509) Orientation: Oriented times 4 (05/15/24 1509) Cognitive Limitations: Attention to task;Problem solving (05/12/24 1018) Psychosocial: Patient can communicate basic needs;Patient can converse in a social setting (05/12/24 1018) Sitting posture: Forward head;Rounded shoulders (05/12/24 1018) Standing posture: Forward head;Rounded shoulders (05/12/24 1018) Safety awareness: Needs cueing supervision. (05/12/24 1018) Current Functional Status: Activities of Daily Living: Self Care Grooming: Supervision (Please comment) (comb hair back) (05/15/24 1509) Dressing Upper Body: Minimal Assistance (don bathrobe) (05/15/24 1509) Lower Body: Contact Guard (don/doff crocs with cross-over leg technique) (05/15/24 1509) Functional Ambulation Assistive Device: Rolling walker (05/15/24 1509) Distance in feet:: 6 (then 20) (05/15/24 1509) Level of Assistance: Minimal Assistance (with chair follow) (05/15/24 1509) Bed Mobility Roll (Right): Contact Guard (05/15/24 1509) Sidelying - Sit: Contact Guard (05/15/24 1509) OT Transfers Sit-Stand: Contact Guard (05/15/24 1509) Stand-Sit: Contact Guard (05/15/24 1509) Balance Sit (Static): Fair (05/15/24 1509) Sit (Dynamic): Fair (-) (05/15/24 1509) Stand (Static): Fair (-) (05/15/24 1509) Stand (Dynamic): Poor (+) (05/15/24 1509) Patient Education Education Topic: Role of OT;Plan of care goals (05/15/24 1509) Review of Precautions: Safety;Fall;Spine Precautions (05/15/24 1509) Education Provided to: Patient (05/15/24 1509) Response to Education: Receptive and agreeable to education (05/15/24 1509) Barriers to learning: Medical status (05/15/24 150) Preferred learning method: Combination (05/15/241508) Alarm Status Patient positioned in: Chair (05/15/241508) With: Pressure pad alarm intact and functioning and call peres in reach (05/15/241508) Following session patient seated OOB in chair with chair alarm activated and cord plugged into callbell system. Treatment Provided: Self Residential Management Trainin minutes Therapeutic Activity: 13 minutes Deficits requiring O.T. treatment needs: ADL/self-care;Balance;Endurance;Fine motor coordination;Functional mobility;Safety;Upper extremity strength;Upper extremity range of motion;Weakness () Assessment: Patient lying supine in bed upon entry. Patient required frequent cueing to follow spinal precautions despite being able to recall 3/3. Patient completed bed mobility via log roll technique with steps by step cueing. Then stood from bed and walked with rolling walker to chair. Once in chair she c/o a headache, when resolved patient completed ADLs at above levels while maintaining spinal precautions. She then stood and walked out into bajwa with rolling walker and chair follow for safety d/t instability and multiple brief posterior LOB. Patient then sat back into chair and returned to room. Further activity held at this time d/t fatigue. Please consider post-acute care services which may include home health, senior living, outpatient therapy or inpatient rehabilitation. The level of care will be determined in collaboration with patient, family/caregiver and care team members. Plan: continue per plan of care Anticipated Frequency (on eval): 3 to 5 times per week (05/15/241508) Equipment Equipment used in Therapy: Rolling walker (05/15/241508) Equipment Needs Equipment needs: Rolling walker (05/15/24 150) AM-PAC Help From Another Person Eating Meals: A little (05/15/241508) Help From Another Person Taking Care of Personal Grooming: A little (05/15/241508) Help From Another Person To Put On/Take Off Upper Body Clothing: A little (05/15/241508) Help From Another Person To Put On/Take Off Lower Body Clothing: A little (05/15/24 150) Help From Another Person Toileting: A lot (05/15/241508) Help From Another Person Bathing: A lot (05/15/24 1509) OT AM-PAC Score: 16 (05/15/24 1509) OT AM-PAC t-Scale Score: 35.96 (05/15/24 1509) HLM (Highest Level of Mobility) Goal: Level 5 standing (1 or more minutes) (05/15/24 1532) A portion of this AM-PAC assessment not scored based on functional assessment; rather clinical decision making utilized based on current findings and/or prior level of function. Please refer to future AM-PAC calculations of functional ability as they become available. * Care Plan - Luna Aguilar RN - 05/15/2024 1:49 PM EDT Clinical Goal(s): Pt will remain free from fall on shift (05/15/24 0700) Possible barriers to meeting goal(s)/advancing plan of care: Weakness Stability of the patient: Moderately stable - low risk of patient condition declining or worsening Summary regarding today's goal(s): Not Met: Recommendations: OOB as tolerated and continue hourly rounding * Ancillary Progress Note - Mei Langley RN - 05/15/2024 12:07 PM EDT CARE MANAGEMENT - ADULT TRANSITION NOTE [facility] [address] Name: Yakov Keller Location[place] [facility] Date: 05/15/2024 Time: 12:07 PM Risk Stratification Risk Stratification Psycho Social / Medical Concerns Identified: Adjustment to illness/injury (04/23/24 1207) Readmission Risk Score: 15.61 (05/15/24 1201) AM-PAC Score With Stairs : 15 (05/14/24 0800) Caregiver Information Patient Contacts Name Relation Home Work Mobile Maya Bruce Sibling [phone] Margi Menezes Friend [phone] Mariangel Sullivan (friend) Friend [phone] Transition of Care Checklist Transition of Care Checklist (aka Readmission Risk Score) Discharge Disposition: Post-Acute (04/28/24917) Narrative: Discussed @ IDT. Medically ready for d/c. Awaiting options letter. No options letter as of 12pm today. Need letter options for SNF. CM will continue to follow needs. Anticipated Transportation at Discharge: BLS Patient/Family Expectations: SNF Transition Planning Transition Planning Transition Plan/Considerations: Discussed at Interdisciplinary Team / Boost Rounds (04/28/24917) Insurance Considerations: Other - Comment ([place] pending) (04/28/24917) Referral to Community Agency : N/A (04/28/24917) Post-Acute Care needs identified and Referrals Completed: Occupational Therapy;Physical Therapy;Speech Therapy (04/28/24917) Agency Choice Due to: Patient preference (04/28/24917) Additional Considerations: none Care Management will continue to monitor and assist with discharge planning needs * Ancillary Progress Note - Nori Howard MSW - 05/15/2024 11:58 AM EDT CARE MANAGEMENT - ADULT TRANSITION NOTE [facility] [address] Name: Yakov Keller Location: [facility] Date: 05/15/2024 Time: 11:58 AM Risk Stratification Risk Stratification Psycho Social / Medical Concerns Identified: Adjustment to illness/injury (04/23/24 1207) Readmission Risk Score: 15.57 (05/15/24 0801) AM-PAC Score With Stairs : 15 (05/14/24 0800) Caregiver Information Patient Contacts Name Relation Home Work Mobile Maya Bruce Sibling [phone] Margi Menezes Friend [phone] Mariangel Sullivan (friend) Friend [phone] Transition of Care Checklist Transition of Care Checklist (aka Readmission Risk Score) Discharge Disposition: Post-Acute (04/28/24917) Narrative: Staff from Office of Aging presented to patient's room to do their assessment related topatient's Options paperwork. SW signed paperwork per staff request. Case discussed with Ops ManagerLeisa Zuleta CM to continue to follow. Anticipated Transportation at Discharge: BLS Patient/Family Expectations: SNF Transition Planning Transition Planning Transition Plan/Considerations: Discussed at Interdisciplinary Team / Boost Rounds (04/28/24917) Insurance Considerations: Other - Comment ([place] pending) (04/28/24917) Referral to Community Agency : N/A (04/28/24917) Post-Acute Care needs identified and Referrals Completed: Occupational Therapy;Physical Therapy;Speech Therapy (04/28/24917) Agency Choice Due to: Patient preference (04/28/24917) Additional Considerations: --- Care Management will continue to monitor and assist with discharge planning needs * Care Plan - David Olsen RN - 05/15/2024 3:30 AM EDT Clinical Goal(s): pt will remain free from falls (05/14/24 1910) Possible barriers to meeting goal(s)/advancing plan of care: weakness Stability of the patient: Moderately stable - low risk of patient condition declining or worsening Summary regarding today's goal(s): Met: Patient remained free from falls Recommendations: Continue implementing fall precautions and purposeful hourly rounding. * Care Plan - Cindy Poe RN - 05/14/2024 7:41 PM EDT Clinical Goal(s): Pt will be free from falls this shift (05/14/24 0748) Possible barriers to meeting goal(s)/advancing plan of care: generalized weakness Stability of the patient: Moderately stable - low risk of patient condition declining or worsening Summary regarding today's goal(s): Met: pt did not fall Recommendations: continue purposeful hourly rounding * Care Plan - David Olsen RN - 05/14/2024 7:18 AM EDT Clinical Goal(s): pt will remain free from falls (05/13/24 1940) Possible barriers to meeting goal(s)/advancing plan of care: weakness Stability of the patient: Moderately stable - low risk of patient condition declining or worsening Summary regarding today's goal(s): Met: Patient remained free form falls Recommendations: Continue implementing fall precautions and purposeful hourly rounding. * Care Plan - Cindy Poe RN - 05/13/2024 2:12 PM EDT Clinical Goal(s): Pt will be free from falls this shift (05/13/24 0741) Possible barriers to meeting goal(s)/advancing plan of care: generalized weakness Stability of the patient: Moderately stable - low risk of patient condition declining or worsening Summary regarding today's goal(s): Met: pt did not fall Recommendations: continue purposeful hourly rounding * Care Plan - David Olsen RN - 05/13/2024 7:40 AM EDT Clinical Goal(s): pt will remain free from falls (05/12/241999) Possible barriers to meeting goal(s)/advancing plan of care: weakness Stability of the patient: Moderately stable - low risk of patient condition declining or worsening Summary regarding today's goal(s): Met: Pt remained free from falls Recommendations: Continue implementing fall precautions and purposeful hourly rounding. * Ancillary Progress Note - Mei Langley RN - 05/12/2024 3:19 PM EDT CARE MANAGEMENT - ADULT TRANSITION NOTE [facility] [address] Name: Yakov Keller Location: [facility] Date: 05/12/2024 Time: 3:19 PM Risk Stratification Risk Stratification Psycho Social / Medical Concerns Identified: Adjustment to illness/injury (04/23/24 1207) Readmission Risk Score: 14.77 (05/12/24 1201) AM-PAC Score With Stairs : 15 (05/12/24 0942) Caregiver Information Patient Contacts Name Relation Home Work Mobile Maya Bruce Sibling [phone] Margi Menezes Friend [phone] Mariangel Sullivan (friend) Friend [phone] Transition of Care Checklist Transition of Care Checklist (aka Readmission Risk Score) Discharge Disposition: Post-Acute (04/28/24917) Narrative: No options letter today. MARINE ELECT[employer]ICIAN APPRENTICE called the options office and the OBRA will be back 05/16/24. Will f/u 05/16/24. Anticipated Transportation at Discharge: S Patient/Family Expectations: SNF Transition Planning Transition Planning Transition Plan/Considerations: Discussed at Interdisciplinary Team / Boost Rounds (04/28/24917) Insurance Considerations: Other - Comment ([place] pending) (04/28/24917) Referral to Community Agency : N/A (04/28/24917) Post-Acute Care needs identified and Referrals Completed: Occupational Therapy;Physical Therapy;Speech Therapy (04/28/24917) Agency Choice Due to: Patient preference (04/28/24917) Additional Considerations: none Care Management will continue to monitor and assist with discharge planning needs * Ancillary Progress Note - Lien Stacy COTA/Eileen - 05/12/2024 10:18 AM EDT PROGRESS NOTE - Occupational Therapy [facility] [address] Name: Yakov Keller Location: [facility] Date: 05/12/2024 Time: 10:18 AM Yakov Keller is a 54 year old female. Patient Status: Inpatient Insurance: Payor: [place] Plan: [place] Product Type: *No Product type* Patient Seen: at bedside, nursing cleared patient for therapy Patient Identified By: Name, ID Band and Date Diagnosis: s/p C3- T1, T7-11 laminectomies (05/12/241017) Status of treatment: Treatment completed (05/12/241017) Orders: OT evaluation and treatment (05/12/241017) Weight Bearing Status: Weight bearing as tolerated (05/12/241017) Precautions: Alarms;Falls;Safety;Spine Precautions;Peralta (05/12/241017) Total Treatment Time: 38 (05/12/241017) Subjective: Patient agreeable. Pain: Patient has complaints of pain. Pain located as "discomfort" 5/10 in ribs post- mobility. Nursing notified and aware. Observations Consciousness: Alert (05/12/241017) Orientation: Oriented times 4 (05/12/241017) Cognitive Limitations: Attention to task;Problem solving (05/12/241017) Psychosocial: Patient can communicate basic needs;Patient can converse in a social setting (05/12/241017) Sitting posture: Forward head;Rounded shoulders (05/12/241017) Standing posture: Forward head;Rounded shoulders (05/12/241017) Safety awareness: Needs cueing supervision. (05/12/241017) Current Functional Status: Activities of Daily Living: Self Care Grooming: Supervision (brush teeth after set-up) (05/12/241017) Toileting: Maximal Assistance (anterior pericare while supine in bed) (05/12/241017) Dressing Upper Body: Supervision (manage gown) (05/12/241017) Lower Body: Maximal Assistance (to don crocs) (05/12/241017) Functional Ambulation Assistive Device: Rolling walker (05/12/241017) Distance in feet:: 18 (05/12/241017) Level of Assistance: Minimal Assistance (x2 to moderate assistance x1) (05/12/241017) Bed Mobility Roll (Right): Supervision (05/12/241017) Roll (Left): Supervision (05/12/241017) Sidelying - Sit: Minimal Assistance (05/12/241017) OT Transfers Sit-Stand: Minimal Assistance (05/12/241017) Stand-Sit: Minimal Assistance (05/12/241017) Balance Sit (Static): Fair (05/12/241017) Sit (Dynamic): Fair (-) (05/12/241017) Stand (Static): Poor (+) (05/12/241017) Stand (Dynamic): Poor (05/12/241017) Patient Education Education Topic: Role of OT (05/12/241017) Review of Precautions: Safety;Fall;Spine Precautions (05/12/241017) Education Provided to: Patient (05/12/241017) Response to Education: Receptive and agreeable to education (05/12/241017) Barriers to learning: Medical status (05/12/241017) Preferred learning method: Combination (05/12/241017) Alarm Status Patient positioned in: Chair (05/12/241017) With: Pressure pad alarm intact and functioning and call peres in reach (05/12/241017) Following session patient seated OOB in chair with chair alarm activated and cord plugged into callbell system. Treatment Provided: Self Residential Management Trainin minutes Deficits requiring O.T. treatment needs: Balance;ADL/self- care;Endurance;Functional mobility;Safety;Upper extremity strength;Weakness (05/12/241017) Assessment: Patient supine in bed upon arrival, pleasant and cooperative. Spine precautions reviewed prior to mobility training with good follow through. Rolling performed with supervision for brief management, able to complete pericare with supervision. Transitioned from sidelying to sitting edge of bed with minimal assistance. Upon reaching seated position at bedside, patient completed dressingand grooming tasks with above levels of assistance. Sit to stand transfers completed with minimal assistance and verbal cues for hand placement. Able to demonstrate functional mobility using rolling walker with initial assistance of 2, progressed to requiring assistance of 1 and chair follow. Required verbal cues for attention to task throughout therapy session however, follow commands consistently. Patient left with all needs met at conclusion of therapy session. Please consider post-acute care services which may include home health, senior living, outpatient therapy or inpatient rehabilitation. The level of care will be determined in collaboration with patient, family/caregiver and careteam members. Plan: To continue plan of care. Anticipated Frequency (on eval): 3 to 5 times per week (05/12/241017) Equipment Equipment used in Therapy: Rolling walker (05/12/241017) AM-PAC Help From Another Person Eating Meals: A little (09/20/24 1018) Help From Another Person Taking Care of Personal Grooming: A little (05/12/241017) Help From Another Person To Put On/Take Off Upper Body Clothing: A little (05/12/241017) Help From Another Person To Put On/Take Off Lower Body Clothing: A lot (05/12/241017) Help From Another Person Toileting: A lot (05/12/241017) Help From Another Person Bathing: A lot (05/12/241017) OT AM-PAC Score: 15 (05/12/241017) OT AM-PAC t-Scale Score: 34.69 (05/12/241017) HLM (Highest Level of Mobility) Goal: Level 4 move to chair/commode (05/12/24941) A portion of this AM-PAC assessment not scored based on functional assessment; rather clinical decision making utilized based on current findings and/or prior level of function. Please refer to future AM-PAC calculations of functional ability as they become available. * Ancillary Progress Note - Cheri Sahu PTA - 05/12/2024 9:42 AM EDT PROGRESS NOTE - Physical Therapy [facility] [address] Name: Yakov Keller Location: [id number] Date: 05/12/2024 Time: 9:42 AM Yakov Keller is a/an 54 year old female. Patient Status: Inpatient Insurance: Payor: [place] Plan: [place] Product Type: *No Product type* Patient Seen: at bedside, nursing cleared patient for therapy Patient Identified By: Name, ID Band and Date Diagnosis: discitis, OM of thoracic spine; s/p C3-T1, T7-11 laminectomies for decompression and washout of epidural abscess on 04/22/24 (05/12/24941) Status of treatment: Treatment completed (05/12/24941) Orders: PT evaluation and treatment (05/12/24941) Weight Bearing Status: Weight bearing as tolerated (05/12/24941) Precautions: Alarms;Falls;Safety;Spine precautions;Peralta (05/12/24941) Total Treatment Time--free text: 38 (05/12/24941) Subjective: "I want you guys to have a wonderful day." Pain: Patient has complaints of "discomfort". Pain located in her L rib cage. 12/30. Primary nurse made aware. P.T. Bed Mobility Roll (Right): Supervision (05/12/24941) Roll (Left): Supervision (05/12/24941) Sidelying-Sit: Minimal Assistance (05/12/24941) Transfers Sit-Stand: Minimal Assistance (05/12/24941) Stand-Sit: Minimal Assistance (05/12/24941) Ambulation: Distance ambulated (feet): 18 Assistive Device: Rolling walker Assist: Minimal Assistance x2, moderate assistance x1 Balance Sit (Static): Fair (05/12/24941) Sit (Dynamic): (fair -) (05/12/24941) Stand (Static): (poor +) (05/12/24941) Stand (Dynamic): Poor (05/12/24941) Patient and or Family Goal(s): to get well Topic of Education: Safety with mobility Method of Education: Verbal discussion and explanation provided to patient: verbalized understanding and or agreement of this information and demonstrated the exercise and or task Treatment Provided: Therapeutic Activities 15 minutes: bed mobility training transfer training Gait Training 15 minutes: gait training with rolling walker Neuromuscular Re-education 8 minutes: balance and postural retraining Alarm Status Patient positioned in: Chair (05/12/24941) With: Pressure pad alarm intact and functioning and call peres in reach (05/12/24941) Following session patient seated OOB in chair with chair alarm activated and cord plugged into callbell system. Patient Education Review of Precautions: Safety;Spine Precautions (05/12/24941) Safety Awareness: Patient verbalizes insight of current deficits;Patient can communicate basic needs;Needs cueing supervision (05/12/24941) Preferred learning method: Combination (05/12/24941) Barriers to learning: Medical Status (05/12/24941) Method of Education: Verbalized to patient;Patient demonstrated task (05/12/24941) Assessment: Patient was seen supine in bed upon arrival and agreeable to work with physical therapyservices. Patient performed rolling each direction to perform hygiene with supervision and sidelying to sitting on the edge of the bed with a minimal assist. Patient continued to sit statically/dynamically on the edge of the bed for approximately 8 minutes with a range of close supervision to contact guard performing reaching tasks to increase trunk strength and endurance. Patient performed 2 sitto stand/stand to sit transfers this trial from the low bed with a minimal assist and ambulated 18 feet using the rolling walker and initially a minimal assist x2 with a chair follow progressing to a moderate assist x2. Throughout ambulation patient required verbal/visual/tactile cues for walker management and assistance to avoid walking too close to the walker. Patient also noted to have LLE weakness causing her L knee to buckle with fatigue. Patient experienced limited ambulatory distance this session due to increased L rip "discomfort" to which her primary nurse was made aware of. Ended session with patient reclined int he chair with pillows for comfort, pressure pad alarm activated, andcall bel within reach. Patient continues to progress when working with physical therapy services bydecreasing assistance level however experienced decreased ambulatory distance this session. Please c onsider post-acute care services which may include home health, senior living, outpatient therapyor inpatient rehabilitation. The level of care will be determined in collaboration with patient, family/caregiver and care team members. Deficits requiring P.T. treatment needs: Safety;Mobility;Balance;Weakness;Endurance;Lower extremitystrength (05/12/24941) Plan: Continue with current treatment plan established on evaluation. AM PAC Score with Stairs: 15 A portion of this AM-PAC assessment not scored based on functional assessment; rather clinical decision making utilized based on current findings and/or prior level of function. Please refer to future AM-PAC calculations of functional ability as they become available. * Ancillary Progress Note - Mei Langley RN - 05/11/2024 8:17 AM EDT CARE MANAGEMENT - ADULT TRANSITION NOTE [facility] [address] Name: Yakov Keller Location: [place] [address]/ Date: 05/11/2024 Time: 8:18 AM Risk Stratification Risk Stratification Psycho Social / Medical Concerns Identified: Adjustment to illness/injury (04/23/24 1207) Readmission Risk Score: 14.67 (05/11/24 0800) AM-PAC Score With Stairs : 15 (05/10/24 2300) Caregiver Information Patient Contacts Name Relation Home Work Mobile Maya Bruce Sibling [phone] Margi Menezes Friend [phone] Mariangel Sullivan (friend) Friend [phone] Transition of Care Checklist Transition of Care Checklist (aka Readmission Risk Score) Discharge Disposition: Post-Acute (04/28/24917) Narrative: Discussed @ IDT. Medically ready for D/C. Awaiting options paperwork. IV Abx cefazolin 2gm intil 06/18 . Tunneled cath right chest. CM to contnue to follow for needs. 1535- No options letter as of today 05/11/24. Anticipated Transportation at Discharge: S Patient/Family Expectations: SNF [facility] . Call Monisha when options paperwork comes back for SNF placement. Transition Planning Transition Planning Transition Plan/Considerations: Discussed at Interdisciplinary Team / Boost Rounds (04/28/24917) Insurance Considerations: Other - Comment (PATRICE pending) (04/28/24917) Referral to Community Agency : N/A (04/28/24917) Post-Acute Care needs identified and Referrals Completed: Occupational Therapy;Physical Therapy;Speech Therapy (04/28/24917) Agency Choice Due to: Patient preference (04/28/24917) Additional Considerations: none Care Management will continue to monitor and assist with discharge planning needs * Care Plan - Nicholas Galvez RN - 05/11/2024 7:42 AM EDT Clinical Goal(s): Patient will ring appropriately for needs (05/10/24 230) Possible barriers to meeting goal(s)/advancing plan of care: None Stability of the patient: Moderately stable - low risk of patient condition declining or worsening Summary regarding today's goal(s): Met: Recommendations: Continue plan of care * Ancillary Progress Note - Cheri Sahu PTA - 05/10/2024 12:03 PM EDT PROGRESS NOTE - Physical Therapy [facility] [address] Name: Yakov Keller Location: [facility] Date: 05/10/2024 Time: 12:03 PM Yakov Keller is a/an 54 year old female. Patient Status: Inpatient Insurance: Payor: MED[place]ID [place] Plan: MEDICAID [place] Product Type: *No Product type* Patient Seen: at bedside, nursing cleared patient for therapy Patient Identified By: Name, ID Band and Date Diagnosis: discitis, OM of thoracic spine; s/p C3-T1, T7-11 laminectomies for decompression and washout of epidural abscess on 04/22/24 (05/10/24 1203) Status of treatment: Treatment completed (05/10/24 120) Orders: PT evaluation and treatment (05/10/24 120) Weight Bearing Status: Weight bearing as tolerated (05/10/24 120) Precautions: Alarms;Falls;Safety;Spine precautions;Peralta (05/10/24 120) Total Treatment Time--free text: 33 (05/10/24 120) Subjective: Patient was agreeable to work with physical therapy services. Pain: Patient has complaints of pain. Pain located in back and abdomin on L side. Patient did not formally rate pain however claimed it was just "Discomfort". Primary nurse aware. P.T. Bed Mobility Roll (Right): Contact Guard (05/10/24 1203) Roll (Left): Contact Guard (05/10/24 1203) Sidelying-Sit: Contact Guard (05/10/24 1203) Sit-Sidelying: Contact Guard (05/10/24 1203) Transfers Sit-Stand: Minimal Assistance (05/10/24 1203) Stand-Sit: Minimal Assistance (05/10/24 1203) W/C-Bed/Mat: Minimal Assistance (x2) (05/10/241202) Ambulation: Distance ambulated (feet): 3 + 35 + 3 Assistive Device: Rolling walker Assist: Minimal Assistance x2 with chair follow Balance Sit (Static): Fair (05/10/241202) Sit (Dynamic): (fair -) (05/10/241202) Stand (Static): (poor +) (05/10/241202) Stand (Dynamic): Poor (05/10/241202) Patient and or Family Goal(s): to get well Topic of Education: Safety with mobility Method of Education: Verbal discussion and explanation provided to patient: verbalized understanding and or agreement of this information and demonstrated the exercise and or task Treatment Provided: Therapeutic Activities 15 minutes: bed mobility training transfer training toilet transfer training Gait Training 18 minutes: gait training with rolling walker Alarm Status Patient positioned in: Chair (05/10/241202) With: Pressure pad alarm intact and functioning and call peres in reach (05/10/241202) Following session patient seated OOB in chair with chair alarm activated and cord plugged into callbell system. Patient Education Review of Precautions: Safety;Spine Precautions (05/10/241202) Safety Awareness: Patient verbalizes insight of current deficits;Patient can communicate basic needs;Needs cueing supervision (05/10/241202) Preferred learning method: Combination (05/10/241202) Barriers to learning: Medical Status (05/10/241202) Method of Education: Verbalized to patient;Patient demonstrated task (05/10/241202) Assessment: Patient was seen supine in bed upon arrival and agreeable to work with physical therapyservices. Patient was reminded of spinal precautions prior to mobility. Patient performed all bed mobility with a contact guard assist and a total of 3 sit to stand/stand to sit transfers from the bed, chair, and bedside commode with a minimal assist this session. Patient required maximal verbal/tactile cues for stanford placement, safety, ad body mechanics during stand to sit transfers to avoid sitting abruptly. Patient ambulated 3 feet from the bed to the chair and 3 feet from the chair to the bedside commode using the rolling walker and a minimal assist x2. Patient also ambulated 35 feet in the hallway using the rolling walker, minimal assist x2, and a chair follow this session. Throughout ambulation patient required visual, verbal and tactile cues for walker management along with cues to increase LLE step height/length. Patient was also noted to experience increase L knee buckling with fatigue. Ended session with patient reclined in the chair with pillows for comfort, pressure pad alarmactivated, and call peres within reach. Patient continues to progress when working with physical therapy services and increased ambulatory distance this session. Please consider post-acute care services which may include home health, senior living, outpatient therapy or inpatient rehabilitation. The level of care will be determined in collaboration with patient, family/caregiver and care team members. Deficits requiring P.T. treatment needs: Safety;Mobility;Balance;Weakness;Endurance;Lower extremitystrength (05/10/24 1203) Plan: Continue with current treatment plan established on evaluation. AM PAC Score with Stairs: 15 A portion of this AM-PAC assessment not scored based on functional assessment; rather clinical decision making utilized based on current findings and/or prior level of function. Please refer to future AM-PAC calculations of functional ability as they become available. * Ancillary Progress Note - Norma Joyner COTA - 05/10/2024 11:30 AM EDT PROGRESS NOTE - Occupational Therapy [facility] [address] Name: Yakov Keller Location: [facility] Date: 05/10/2024 Time: 12:22 PM Yakov Keller is a 54 year old female. Patient Status: Inpatient Insurance: Payor: [place] Plan: [place] Product Type: *No Product type* Patient Seen: at bedside, nursing cleared patient for therapy Patient Identified By: Name, ID Band and Date Diagnosis: s/p C3- T1, T7-11 laminectomies (05/10/24 113) Status of treatment: Treatment completed (05/10/24 1130) Orders: OT evaluation and treatment (05/10/24 113) Weight Bearing Status: Weight bearing as tolerated (05/10/24 1130) Precautions: Alarms;Falls;Safety;Spine Precautions (05/10/24 1130) Total Treatment Time: 30 (05/10/241129) Subjective: Agreeable to therapy Pain: Patient has complaints of pain. Pain located in back and abdomen on L side but did not rate; able to proceed with therapy . Observations Consciousness: Alert (05/10/241129) Orientation: Oriented times 4 (05/10/241129) Cognitive Limitations: Attention to task;Problem solving (05/10/241129) Psychosocial: Patient can communicate basic needs (05/10/241129) Sitting posture: Forward head;Rounded shoulders;Posterior lean (05/10/241129) Standing posture: Forward head;Rounded shoulders (05/10/241129) Safety awareness: Needs cueing supervision. (05/10/241129) Other Findings Endurance: Sitting tolerance;Functional activity;Fair;Standing tolerance;Poor (05/08/24 113) Coordination: LUE;RUE;Gross motor;Fine motor;Intact (04/23/241117) Current Functional Status: Activities of Daily Living: Self Care Able to provide self care: Yes (04/23/241117) Feeding: Supervision (Please comment) (set up to drink from water bottle) (05/10/241129) Grooming: Supervision (Please comment) (wash face) (05/10/241129) Toileting: Maximal Assistance (clothing managment to pull pants up; Moderate assistance for hygiene) (05/10/241129) Dressing Upper Body: Supervision (Please comment) (gown change) (05/10/241129) Lower Body: Maximal Assistance (pants and to kelby b/l slipper socks) (05/10/241129) Functional Ambulation Assistive Device: Rolling walker (05/10/241129) Distance in feet:: 3 (35' X1) (05/10/241129) Level of Assistance: Minimal Assistance (X2 with chair follow with occasional L knee buckle) (05/10/241129) Bed Mobility Roll (Right): Contact Guard (05/10/241129) Roll (Left): Not Tested (05/10/241129) Supine-Sit: Not Tested (05/10/241129) Sidelying - Sit: Contact Guard (09/18/24 1130) OT Transfers Sit-Stand: Minimal Assistance (05/10/241129) Stand-Sit: Minimal Assistance (05/10/241129) Bed-Chair: Minimal Assistance (X2) (05/10/241129) Toilet: Minimal Assistance (BSC) (05/10/241129) Balance Sit (Static): Fair (05/10/241129) Sit (Dynamic): (fair -) (05/10/241129) Stand (Static): Poor (poor +) (05/10/241129) Stand (Dynamic): (poor) (05/08/24 113) Patient Education Education Topic: Role of OT (05/10/241129) Review of Precautions: Fall;Safety (05/10/241129) Barriers to learning: Medical status (05/10/241129) Preferred learning method: Combination (05/10/241129) Alarm Status Patient positioned in: Chair (05/10/241129) With: Pressure pad alarm intact and functioning and call peres in reach (05/10/241129) Following session patient seated OOB in chair with chair alarm activated and cord plugged into callbell system. Treatment Provided: Self Residential Management Trainin minutes Therapeutic Activity: 15 minutes Deficits requiring O.T. treatment needs: ADL/self- care;Balance;Endurance;Functional mobility;Functional cognition;Safety;Upper extremity strength;Upper extremity range of motion;Weakness (05/08/241130) Assessment: Patient was found laying supine in bed : Alert and Ox4: She continues to make good progress functional transfers with assistance of 1 provided with verbal cues for safe transfer techniques and hand placement from the bed, bedside commode, and chair: She did not require foot block this session during functional transfer training. Ms. Keller was able to ambulate 3' bed to chair with Min A x2 and and increased functional distances with rolling walker in hallway provided with Min A X2 and chair follow. L knee buckle with fatigue. She required assistance for rolling walker management which improved after therapist provided verbal cues for sequencing steps: Functional ambulation remains limited due to decreased strength/endurance, decreased tolerance, and decreased standing balance with rolling walker. She sat at the edge of the bed to complete ADL's and self care tasks with the above assistance levels; Pt remains peralta dependent at this time, but she requires assistance for clothing management in stance due to inability to perform task unsupported demonstrating impaired standing balance/tolerance when attempting to manage brief/pants. Of note, patient does require assistance for posterior hygiene to reduce twisting in order to maintain spinal precautions. Initiated bedside commode transfers this session; Patient able to perform grooming tasks and UB/LB dressing tasks seated edge of bed with contact guard assistance level for balance and safety, but requires increased assistance to perform LE dressing due to decreased LE strength to bring legs up over one another/decreased functional reach secondary to maintain spinal precautions . ADL/self care session required setup and assistance due to limitations in decreased functional mobility, decreased strength, decreased functional reach, i mpaired standing balance/tolerance, impaired sitting balance, decreased endurance, and decreased safety. Short rest breaks throughout session due to fatigue. Please consider post-acute care services which may include home health, senior living, outpatient therapy or inpatient rehabilitation. The level of care will be determined in collaboration with patient, family/caregiver and care team members. Plan: Will continue to follow patient per plan of care. Anticipated Frequency (on eval): 3 to 5 times per week (05/10/24 113) Equipment Equipment used in Therapy: Rolling walker (and chair follow) (05/10/24 113) AM-PAC Help From Another Person Eating Meals: A little (05/10/241129) Help From Another Person Taking Care of Personal Grooming: A little (05/10/241129) Help From Another Person To Put On/Take Off Upper Body Clothing: A little (05/10/241129) Help From Another Person To Put On/Take Off Lower Body Clothing: A lot (05/10/241129) Help From Another Person Toileting: A lot (05/10/24 113) Help From Another Person Bathing: A lot (05/10/24 113) OT AM-PAC Score: 15 (05/10/24 113) OT AM-PAC t-Scale Score: 34.69 (05/10/241129) HLM (Highest Level of Mobility) Goal: Level 4 move to chair/commode (05/10/24 1203) A portion of this AM-PAC assessment not scored based on functional assessment ; rather clinical decision making utilized based on current findings and/or prior level of function. Please refer to future AM-PAC calculations of functional ability as they become available. * Ancillary Progress Note - Johanny Doss RN - 05/10/2024 11:11 AM EDT CARE MANAGEMENT - ADULT TRANSITION NOTE [facility] [address] Name: Yakov Keller Location: [id number] Date: 05/10/2024 Time: 11:12 AM Risk Stratification Risk Stratification Psycho Social / Medical Concerns Identified: Adjustment to illness/injury (04/23/24 1207) Readmission Risk Score: 14 (05/10/24 08) AM-PAC Score With Stairs : 14 (05/09/24 08) Caregiver Information Patient Contacts Name Relation Home Work Mobile Maya Bruce Sibling [phone] MenezesMargi Friend [phone] Mariangel Sullivan (friend) Friend [phone] Transition of Care Checklist Transition of Care Checklist (aka Readmission Risk Score) Discharge Disposition: Post-Acute (04/28/24917) Narrative: CM has been following Marlene's hospital course. Discussed in IDT rounds. Marlene is currently medically stable for discharge. [facility] has accepted patient pending options letter for finalization of insurance. Anticipate Wednesday transport. CM will continue to work with Monisha at [facility] ([phone]). IV abx until 06/18 - cefazolin 2gm R chest tunneled CVC Weekly CMC w diff, CMP, CRP Physical and Occupational therapy for duration of SNF admission 6 week ID follow up CM will continue to follow for additional discharge needs/plans. Anticipated Transportation at Discharge: BLS Patient/Family Expectations: SNF Transition Planning Transition Planning Transition Plan/Considerations: Discussed at Interdisciplinary Team / Boost Rounds (04/28/24917) Insurance Considerations: Other - Comment ([place] pending) (04/28/24917) Referral to Community Agency : N/A (04/28/24917) Post-Acute Care needs identified and Referrals Completed: Occupational Therapy;Physical Therapy;Speech Therapy (04/28/24917) Agency Choice Due to: Patient preference (04/28/24917) Additional Considerations: Care Management will continue to monitor and assist with discharge planning needs * Ancillary Progress Note - Melissa Mccabe OSA - 05/09/2024 4:03 PM EDT Patient's MA 51 and PASRR received from [employer] and have been scanned into the chart. Documents have been emailed to [facility] and GAETANO released. [employer], Cammy Villarreal, was made aware of same. 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 . Difficult to get a good diet hx from pt. She denies N/V/D. . Limited intake documentation shows pt eating 25-100% . Patient is pending rehab placement Anthropometrics Measurements Admission weight (for dietitians): 68 kg Height: 157.5 cm (5' 2") (04/20/241720) Weight: 58.3 kg (128 lb 9.6 oz) (05/09/24220) BMI: 27.43 (04/20/241720) Usual Body Weight or EDW for Dialysis Patients: 64 kg Diet: Regular Previously followed diet: regular Food Allergies/Intolerances: none Oral Nutrition Supplement (ONS): none Pertinent medications/vitamins/minerals/supplements: none RISK FACTORS: Adult Energy Intake: Less than 75% of estimated energy requirement for greater than 7 days (moderate, acute illness). Interpretation of Weight Change: No recent/significant weight change PTAl Since admission weights decreased but unknown if fluid related vs bedscale issues as at one point had a -3.9 kg in 24 hrs andnot on diuretics Skin: Compromise without nutrition-related implications -Surgical incision back NUTRITION RISK CATEGORY: Nutrition Risk Category: Low/Moderate (0-1 factors) Clinical Nutrition Recommendations: Diet: Continue current nutrition plan NUTRITION INTERVENTION/PLAN: Continue current care plan Will follow and adjust nutritional plan as medical condition requires. Please contact for change(s)in patient condition requiring earlier intervention. * Care Plan - Cassie Yee RN - 05/09/2024 1:04 PM EDT Clinical Goal(s): Patient will remain free from injury for duration of shift (05/09/24 0800) Possible barriers to meeting goal(s)/advancing plan of care: Weakness Stability of the patient: Moderately stable - low risk of patient condition declining or worsening Summary regarding today's goal(s): Met: Met Recommendations: Continue to implement safety precautions * Ancillary Progress Note - Cammy Villarreal RN - 05/09/2024 9:51 AM EDT CARE MANAGEMENT - ADULT TRANSITION [place] [facility] [address] Name: Yakov Keller Location: [facility]A Date: 05/09/2024 Time: 9:51 AM Risk Stratification Risk Stratification Psycho Social / Medical Concerns Identified: Adjustment to illness/injury (04/23/24 1207) Readmission Risk Score: 13.94 (05/09/24 0800) AM-PAC Score With Stairs : 14 (05/08/24 1201) Caregiver Information Patient Contacts Name Relation Home Work Mobile Reebert,Maya Sibling [phone] Margi Menezes Friend [phone] Mariangel Sullivan (friend) Friend [phone] Transition of Care Checklist Transition of Care Checklist (aka Readmission Risk Score) Discharge Disposition: Post-Acute (04/28/24917) Narrative: Per primary care in IDTs, patient medically stable for discharge. [facility] accepted. Spoke with Mariangel Sullivan, friend to update on acceptance. She will inform sister. Spoke with Monisha at [facility] - they can take her tomorrow Spoke with Monisha at [facility] - patient is straight medicaid, will need OPTION. OPTIONS sent to [facility]. Anticipated Transportation at Discharge: w/v vs bls Patient/Family Expectations: SNF Transition Planning Transition Planning Transition Plan/Considerations: Discussed at Interdisciplinary Team / Boost Rounds (04/28/24917) Insurance Considerations: Other - Comment ([place] pending) (04/28/24917) Referral to Community Agency : N/A (04/28/24917) Post-Acute Care needs identified and Referrals Completed: Occupational Therapy;Physical Therapy;Speech Therapy (04/28/24917) Agency Choice Due to: Patient preference (04/28/24917) Additional Considerations: Care Management will continue to monitor and assist with discharge planning needs * Ancillary Progress Note - Cammy Villarreal RN - 05/09/2024 9:41 AM EDT POST ACUTE CARE CARE MANAGEMENT [facility] [address] Name: Yakov Keller Location: [facility] Date: 05/09/2024 Time: 9:42 AM Post-Acute Care Patient General Information Living Quarters: House (05/09/24939) How many stories is the dwelling?: One Story (05/09/24939) Number of steps to enter living quarters:: 12 (05/09/24939) Location of bathroom(s): All floors or Single story dwelling (05/09/24939) Do you have serious difficulty walking or climbing stairs? (5 years old or older): Yes (05/09/24939) History of falling: No (05/09/2499) What was your living situation prior to admission/observation?: Alone (05/09/24939) Do you have any children, pets, or other dependents that you are currently caring for?: No (05/09/24939) Ancillary note available for additional information: Yes (05/09/24939) AM-PAC Score With Stairs : 14 (05/08/24 1201) Post-Acute Care with AM-PAC < 17.99 Rehab diagnosis: Does not meet criteria (05/09/24939) Senior Living Facility (SNF) Guidelines For Medical Approval (must select both): Care must be provided by an RN/RIVER TESTER and cannot be managed at home;Care requires observation, monitoring and evaluation of effectiveness on a daily basis (05/09/24939) SNF guidelines for Rehab Approval (All selections required): Able to participate for at least 1 hour of therapy per day;Services required only able to be provided in an inpatient setting;Established rehabilitative progress;One or more therapy modalities (PT/OT/ST) at least 5 times a week;Requires intense care planning with realistic goals as identified by 1 of the following;Frequent monitoring and or revision of treatment plan;Frequent re-assessment of established rehabilitative progress;Requries Training (select at least one) (05/09/24939) Medical Procedures: IV Infusion greater than 1x daily (05/09/24939) Therapy Modalities: Physical Therapy;Occupational Therapy (05/09/24939) Intense Care Plan Goals: Family medication and/or transfer training;Assistance with application forcommunity services;Completion of home evaluation, assistance with home modifications (05/09/24939) SNF Required Training: Gait training;Transfer Training;ADL training, with or without adaptive equipment (05/09/24939) Approved for Senior Living Rehab: Approved for Senior Living Rehab (05/09/24939) Patient Name: Yakov Keller Patient Hospital the patient is in: [facility] Facility Name: [facility] Facility Facility Address/Phone #: [address], [place], [address] / [phone] Accepting Provider Accepting Provider Name/Address/Phone#: Nader Zee, [address], [place], [address] / [phone] Diagnosis Code: M47.814, Z98.890 Estimated Date of D/C: 05/10/24 Reason for SNF/rehab: IV antibiotics and PT/OT Mobility: [facility] * Care Plan - Lima Kim RN - 05/09/2024 3:36 AM EDT Clinical Goal(s): pt will have decreased pain levels of 5/10 or less (05/08/24 2300) Possible barriers to meeting goal(s)/advancing plan of care: generalized pain Stability of the patient: Moderately stable - low risk of patient condition declining or worsening Summary regarding today's goal(s): Met: Patient states that pain levels were less than 5/10 Recommendations: call peres in reach, bed alarms on, pain meds prn, frequent rounding * Care Plan - Araseli Barrios RN - 05/08/2024 1:54 PM EDT Clinical Goal(s): The pt will be free from falls this shift. (05/08/24 0700) Possible barriers to meeting goal(s)/advancing plan of care: Weakness, fatigue, intermittent confusion. Stability of the patient: Moderately stable - low risk of patient condition declining or worsening Summary regarding today's goal(s): Met: The pt remained free from falls this shift. Recommendations: Continue with fall precautions and purposeful rounding. * Ancillary Progress Note - Tasha Nava PTA - 05/08/2024 12:01 PM EDT PROGRESS NOTE - Physical Therapy [address] [address] Name: Yakov Keller [place] [facility] Date: 05/08/2024 Time: 12:01 PM Yakov Keller is a/an 54 year old female. Patient Status: Inpatient Insurance: Payor: [place] Plan[place] Product Type: *No Product type* Patient Seen: at bedside, nursing cleared patient for therapy Patient Identified By: Name, ID Band and Date Diagnosis: discitis, OM of thoracic spine; s/p C3-T1, T7-11 laminectomies for decompression and washout of epidural abscess on 04/22/24 (05/08/241200) Status of treatment: Treatment completed (05/08/241200) Orders: PT evaluation and treatment (05/08/241200) Weight Bearing Status: Weight bearing as tolerated (05/08/241200) Precautions: Alarms;Falls;Safety;Spine precautions (05/08/241200) Total Treatment Time--free text: 28 (05/08/241200) Subjective: Patient pleasant and agreeable; highly motivated. Pain: No complaints of pain. P.T. Bed Mobility Roll (Right): Contact Guard (05/08/241200) Roll (Left): Contact Guard (05/08/241200) Sidelying-Sit: Contact Guard (05/08/241200) Sit-Sidelying: Contact Guard (05/08/241200) Transfers Sit-Stand: Minimal Assistance (05/08/241200) Ambulation: Distance ambulated (feet): 3 (bed to chair), 8 feet in hallway with chair follow Assistive Device: Rolling walker Assist: Minimal Assistance x2 Balance Sit (Static): Fair (05/08/241200) Sit (Dynamic): Fair (-) (05/08/241200) Stand (Static): Poor (+) (05/08/241200) Stand (Dynamic): Poor (05/08/241200) Patient and or Family Goal(s): to get well and to return home Topic of Education: Safety with mobility, Goals/plan of care, and Use of assistive device Method of Education: Verbal discussion and explanation provided to patient: demonstrated the exercise and or task Treatment Provided: Therapeutic Activities 18 minutes: bed mobility training transfer training Gait Training 10 minutes: gait training with rolling walker Alarm Status Patient positioned in: Chair (05/08/241200) With: Pressure pad alarm intact and functioning and call peres in reach (05/08/241200) Following session patient seated OOB in chair with chair alarm activated and cord plugged into callbell system. Patient Education Review of Precautions: Safety;Spine Precautions (05/08/241200) Safety Awareness: Needs cueing supervision (05/08/241200) Preferred learning method: Combination (05/08/241200) Barriers to learning: Medical Status (05/08/241200) Method of Education: Verbalized to patient (05/08/241200) Assessment: Patient pleasant and agreeable to therapy, supine upon arrival, motivated to participate. Review of spine precautions upon start of session. Bed mobility completed with log rolling technique. Patient's sitting balance at edge of bed maintained with supervision to contact guard static and dynamic activities. Sit to stands completed with assist x2 to rise. Transfer from bed to chair completed with assist x2 and rolling walker, cues for hand placement. Overall, patient tolerated well. Session progressed to hallway, patient able to ambulate 8 feet with rolling walker and close chair follow, with assist x2. L LE is unsteady and patient needed to sit abruptly. Patient seated in chair upon end of treatment session, positioned with pillows for comfort and to maintain skin integrity. Call peres in reach and chair alarm on, all needs met. Please consider post-acute care services which may include home health, senior living, outpatient therapy or inpatient rehabilitation. The level of care will be determined in collaboration with patient, family/caregiver and care team members. Deficits requiring P.T. treatment needs: Safety;Mobility;Balance;Weakness;Lower extremity strength (05/08/241200) Plan: Continue with current treatment plan established on evaluation. AM PAC Score with Stairs: 14 A portion of this AM-PAC assessment not scored based on functional assessment; rather clinical decision making utilized based on current findings and/or prior level of function. Please refer to future AM-PAC calculations of functional ability as they become available. * Ancillary Progress Note - Norma Joyner COTA - 05/08/2024 11:31 AM EDT PROGRESS NOTE - Occupational Therapy [facility] [place] [address] Name: Yakov Keller Location: [facility]A Date: 05/08/2024 Time: 12:53 PM Yakov Keller is a 54 year old female. Patient Status: Inpatient Insurance: Pay[place] Plan[place] Product Type: *No Product type* Patient Seen: at bedside, nursing cleared patient for therapy Patient Identified By: Name, ID Band and Date Diagnosis: s/p C3- T1, T7-11 laminectomies (05/08/241130) Status of treatment: Treatment completed (05/08/241130) Orders: OT evaluation and treatment (05/08/241130) Weight Bearing Status: Weight bearing as tolerated (05/08/241130) Precautions: Alarms;Falls;Safety;Spine Precautions (05/08/241130) Total Treatment Time: 30 (05/08/241130) Subjective: " I am hinged a little differently" Pain: No complaints of pain Observations Consciousness: Alert (05/08/241130) Orientation: Oriented times 4 (05/08/241130) Cognitive Limitations: Attention to task;Problem solving (05/08/241130) Psychosocial: Patient can communicate basic needs (05/08/241130) Sitting posture: Forward head;Rounded shoulders (05/08/241130) Standing posture: Forward head;Rounded shoulders (05/08/241130) Safety awareness: Needs cueing supervision. (05/08/241130) Other Findings Endurance: Sitting tolerance;Functional activity;Fair;Standing tolerance;Poor (05/08/241130) Coordination: LUE;RUE;Gross motor;Fine motor;Intact (04/23/24 111) Current Functional Status: Activities of Daily Living: Self Care Able to provide self care: Yes (04/23/24 111) Grooming: Contact Guard (sititng balance edge of bed to brush hair and wash face) (05/08/241130) Toileting: Maximal Assistance (clothing managment; Peralta dependent) (05/08/241130) Dressing Upper Body: Supervision (Please comment) (kelby robe- seated) (05/08/241130) Lower Body: Maximal Assistance (kelby slipper socks) (05/08/241130) Functional Ambulation Assistive Device: Rolling walker (05/08/241130) Distance in feet:: 3 (05/08/241130) Level of Assistance: Minimal Assistance (X2) (05/08/241130) Bed Mobility Roll (Left): Contact Guard (with rail) (05/08/241130) Supine-Sit: Not Tested (05/08/241130) Sidelying - Sit: Contact Guard (05/08/241130) OT Transfers Sit-Stand: Minimal Assistance (bilateral foot block) (05/08/241130) Stand-Sit: Minimal Assistance (05/08/241130) Bed-Chair: Minimal Assistance (X2) (05/08/241130) Balance Sit (Static): Fair (05/08/241130) Sit (Dynamic): (fair -) (05/08/241130) Stand (Static): Poor (+) (05/08/241130) Stand (Dynamic): (poor) (05/08/241130) Patient Education Education Topic: Role of OT (05/08/241130) Review of Precautions: Fall;Safety (05/08/241130) Barriers to learning: Medical status (05/08/241130) Preferred learning method: Combination (05/08/241130) Alarm Status Patient positioned in: Chair (05/08/241130) With: Pressure pad alarm intact and functioning and call peres in reach (05/08/241130) Following session patient seated OOB in chair with chair alarm activated and cord plugged into callbell system. Treatment Provided: Self Residential Management Trainin minutes Therapeutic Activity: 15 minutes Deficits requiring O.T. treatment needs: ADL/self- care;Balance;Endurance;Functional mobility;Functional cognition;Safety;Upper extremity strength;Upper extremity range of motion;Weakness (05/08/241130) Assessment: Patient was found laying supine in bed : Alert and Ox4: She continues to make good progress with bed mobility, functional transfers with assistance of 1 provided with verbal cues for safetransfer techniques and hand placement: Ms. Keller was able to ambulate 3' and 8' with rolling walker provided with Min A and chair follow and cues and assistance for rolling walker management: She requires bilateral foot block during functional transfer training and L LE appears extended when ambulating; Functional ambulation remains limited due to decreased endurance, decreased tolerance, and decreased standing balance. She sat at the edge of the bed to complete ADL's and self care tasks with the above assistance levels; Pt is Peralta dependent at this time, but she requires assistance for clothing management in stance due to inability to perform task unsupported demonstrating impaired standing balance/tolerance when attempting to manage brief. Patient able to perform grooming tasks and UB dressing tasks seated edge of bed with contact guard assistance level for balance and safety, but requires increased assistance to perform LE dressing due to decreased LE strength to bring legs up over one another/decreased functional reach secondary to maintain spinal precautions. Short rest breaks throughout session due to fatigue. Please consider post-acute care services which may include homehealth, senior living, outpatient therapy or inpatient rehabilitation. The level of care will be determined in collaboration with patient, family/caregiver and care team members. Plan: Will continue to follow patient per plan of care. Anticipated Frequency (on eval): 3 to 5 times per week (05/08/241130) AM-PAC Help From Another Person Eating Meals: A little (05/08/24 113) Help From Another Person Taking Care of Personal Grooming: A little (05/08/241130) Help From Another Person To Put On/Take Off Upper Body Clothing: A little (05/08/241130) Help From Another Person To Put On/Take Off Lower Body Clothing: A lot (05/08/241130) Help From Another Person Toileting: A lot (05/08/241130) Help From Another Person Bathing: A lot (05/08/241130) OT AM-PAC Score: 15 (05/08/24 113) OT AM-PAC t-Scale Score: 34.69 (05/08/24 113) HLM (Highest Level of Mobility) Goal: Level 4 move to chair/commode (05/08/24 1201) A portion of this AM-PAC assessment not scored based on functional assessment ; rather clinical decision making utilized based on current findings and/or prior level of function. Please refer to future AM-PAC calculations of functional ability as they become available. * Ancillary Progress Note - Gladys Naidu RN - 05/08/2024 9:37 AM EDT POST ACUTE CARE CARE MANAGEMENT [address] [address] Name: Yakov Keller [place] [facility] Date: 05/08/2024 Time: 9:37 AM Post-Acute Care Patient General Information Living Quarters: House (04/23/241206) How many stories is the dwelling?: One Story (04/23/241206) Number of steps to enter living quarters:: 12 (04/23/241206) Location of bathroom(s): All floors or Single story dwelling (04/23/241206) Do you have serious difficulty walking or climbing stairs? (5 years old or older): No (04/22/242250) History of falling: No (05/08/24899) What was your living situation prior to admission/observation?: Independently;Alone (04/23/241206) Do you have any children, pets, or other dependents that you are currently caring for?: No (04/23/241206) AM-PAC Score With Stairs : 13 (05/08/24899) Post-Acute Care with AM-PAC < 17.99 Rehab diagnosis: Does not meet criteria (05/08/24935) Senior Living Facility (SNF) Guidelines For Medical Approval (must select both): Care must be provided by an RN/RIVER TESTER and cannot be managed at home;Care requires observation, monitoring and evaluation of effectiveness on a daily basis (05/08/24935) SNF guidelines for Rehab Approval (All selections required): Able to participate for at least 1 hour of therapy per day;Requires intense care planning with realistic goals as identified by 1 of the following;Requries Training (select at least one);Established rehabilitative progress;One or more therapy modalities (PT/OT/ST) at least 5 times a week;Frequent re-assessment of established rehabilitative progress;Services required only able to be provided in an inpatient setting;Frequent monitoring and or revision of treatment plan (05/08/24935) Medical Procedures: IV Infusion greater than 1x daily (05/08/24935) Therapy Modalities: Physical Therapy;Occupational Therapy (05/08/24935) Intense Care Plan Goals: Completion of home evaluation, assistance with home modifications;Coordination of multiple community services;Assistance with application for community services;Family medication and/or transfer training (05/08/24935) SNF Required Training: Gait training;ADL training, with or without adaptive equipment;Transfer Training (05/08/24935) Approved for Senior Living Rehab: Approved for Senior Living Rehab (05/08/24935) * Ancillary Progress Note - Gladys Naidu RN - 05/08/2024 9:29 AM EDT CARE MANAGEMENT - ADULT TRANSITION NOTE [facility] [address] Name: Yakov Keller Location: [facility] Date: 05/08/2024 Time: 9:29 AM Risk Stratification Risk Stratification Psycho Social / Medical Concerns Identified: Adjustment to illness/injury (04/23/24 1207) Readmission Risk Score: 13.73 (05/08/24 0802) AM-PAC Score With Stairs : 13 (05/08/24 0900) Caregiver Information Patient Contacts Name Relation Home Work Mobile Maya Bruce Sibling [phone] ClifMargi Friend [phone] Mariangel Sullivan (friend) Friend [phone] Transition of Care Checklist Transition of Care Checklist (aka Readmission Risk Score) Discharge Disposition: Post-Acute (04/28/24 0918) Narrative: Patient discussed in IDT rounds and chart reviewed. Per service, patient is medically stable with D/C. D Errifaiy MARINE ELECTRICIAN APPRENTICE assisting with pending SNF referrals- left for [facility] & per Monisha at [facility], they will review and call back. Additional SNFs selected on Repisodic list-[facility], [facility], [facility], [facility]. MARINE ELECTRICIAN APPRENTICE assisting with additional referrals. CM will continue to follow and support any needs. Anticipated Transportation at Discharge: BLS Patient/Family Expectations: SNF Transition Planning Transition Planning Transition Plan/Considerations: Discussed at Interdisciplinary Team / Boost Rounds (04/28/24917) Insurance Considerations: Other - Comment ([place] pending) (04/28/24917) Referral to Community Agency : N/A (04/28/24917) Post-Acute Care needs identified and Referrals Completed: Occupational Therapy;Physical Therapy;Speech Therapy (04/28/24917) Agency Choice Due to: Patient preference (04/28/24917) Additional Considerations: Care Management will continue to monitor and assist with discharge planning needs * Care Plan - Laura Hoffman RN - 05/07/2024 6:59 PM EDT Clinical Goal(s): pt will remain free from falls or injury during this shift (05/07/24 0700) Possible barriers to meeting goal(s)/advancing plan of care: weakness Stability of the patient: Moderately stable - low risk of patient condition declining or worsening Summary regarding today's goal(s): Met: met Recommendations: continue purposeful hourly rounding * Care Plan - Hetal Marie RN - 05/07/2024 4:49 AM EDT Clinical Goal(s): pt will be free from falss and injury during shift (05/07/24 0448) Possible barriers to meeting goal(s)/advancing plan of care: weakness Stability of the patient: Moderately stable - low risk of patient condition declining or worsening Summary regarding today's goal(s): Met: pt remain free from falls and injury during shift Recommendations: Hourly rounds, call peres, bed alarm * Care Plan - Hetal Marie RN - 05/06/2024 9:31 PM EDT Clinical Goal(s): pt will remain free from falls or injury during this shift (05/06/24 0700) Possible barriers to meeting goal(s)/advancing plan of care: recent surgery, cognitive impairment Stability of the patient: Moderately stable - low risk of patient condition declining or worsening Summary regarding today's goal(s): Met: pt remain free from falls during this shift Recommendations: Hourly rounding, call peres, bed alarm * Care Plan - Laura Hoffman RN - 05/06/2024 6:49 PM EDT Clinical Goal(s): pt will remain free from falls or injury during this shift (05/06/24 0700) Possible barriers to meeting goal(s)/advancing plan of care: weakness Stability of the patient: Moderately stable - low risk of patient condition declining or worsening Summary regarding today's goal(s): Met: met Recommendations: continue purposeful hourly rounding * Care Plan - Hetal Marie RN - 05/06/2024 6:03 AM EDT Clinical Goal(s): pt will remain free from injury during shift (05/06/24 0600) Possible barriers to meeting goal(s)/advancing plan of care: recent surgery, cognitive impairment, impulsiveness Stability of the patient: Moderately stable - low risk of patient condition declining or worsening Summary regarding today's goal(s): Met: pt remain free from fall and injury during shift Recommendations: Hourly rounding, call peres, bed alarm * Ancillary Progress Note - Johanny Doss RN - 05/05/2024 2:56 PM EDT CARE MANAGEMENT - ADULT TRANSITION NOTE [facility] [address] Name: Yakov Keller Location: [facility]A Date: 05/05/2024 Time: 2:57 PM Risk Stratification Risk Stratification Psycho Social / Medical Concerns Identified: Adjustment to illness/injury (04/23/24 1207) Readmission Risk Score: 16.3 (05/05/24 1201) AM-PAC Score With Stairs : 13 (05/05/24 0800) Caregiver Information Patient Contacts Name Relation Home Work Mobile Maya Bruce Sibling [phone] Margi Menezes Friend [phone] Mariangel Sullivan (friend) Friend [phone] Transition of Care Checklist Transition of Care Checklist (aka Readmission Risk Score) Discharge Disposition: Post-Acute (04/28/24917) Narrative: CM has been following Marlene's hospital course. Discussed in IDT rounds. Marlene is currently medically stable for discharge. CVC is scheduled for 1500 today. Transport is scheduled for 08Wednesday. ID recommends IV abx until 06/18. Foster sister, Maya was called by service to discuss IV abx after [facility] [place] discharge. She agrees with following ID recommendations. [facility] providers worry about dispo planning around Cefazolin 2gm Q8 and what that will look like for Marlene and Maya. 1530 Maya was called, she is unable to care for Marlene after discharge and the abx. She feels that she does not have friends to assist once discharged from [facility]. Will discuss with Yulia at [facility]. SNF options will be discussed, Maya does not have preference. CM will continue to follow for additional discharge needs/plans. Anticipated Transportation at Discharge: bls Patient/Family Expectations: IRF Transition Planning Transition Planning Transition Plan/Considerations: Discussed at Interdisciplinary Team / Boost Rounds (04/28/24917) Insurance Considerations: Other - Comment ([place] pending) (04/28/24917) Referral to Community Agency : N/A (04/28/24917) Post-Acute Care needs identified and Referrals Completed: Occupational Therapy;Physical Therapy;Speech Therapy (04/28/24917) Agency Choice Due to: Patient preference (04/28/24917) Additional Considerations: Care Management will continue to monitor and assist with discharge planning needs * Care Plan - Cassie Mcintosh RN - 05/05/2024 12:43 PM EDT Clinical Goal(s): Patient will remain free from injury (05/05/24 0700) Possible barriers to meeting goal(s)/advancing plan of care: Weakness Stability of the patient: Moderately stable - low risk of patient condition declining or worsening Summary regarding today's goal(s): Met: Patient had no injuries Recommendations: Purposeful hourly rounding * Care Plan - Arcelia Pruitt RN - 05/04/2024 6:20 PM EDT Problem: Pain & Impaired Comfort Goal: Patient's pain & discomfort is manageable. Outcome: Progressing Problem: Safety & Risk for Injury Goal: Patient will remain free from injury. Outcome: Progressing Clinical Goal(s): pt will not throw things at staff tosdAY. (05/04/24 09) Possible barriers to meeting goal(s)/advancing plan of care: ILLNESS Stability of the patient: Moderately stable - low risk of patient condition declining or worsening Summary regarding today's goal(s): Not Met: EDUCATRE Recommendations: EDUCATE * Ancillary Progress Note - Tasha Nava PTA - 05/04/2024 10:02 AM EDT PROGRESS NOTE - Physical Therapy [facility] [address] Name: Yakov Keller Location: [facility]A Date: 05/04/2024 Time: 10:02 AM Yakov Keller is a/an 54 year old female. Patient Status: Inpatient Insurance: Payor: [place] Plan: [place] Product Type: *No Product type* Patient Seen: at bedside, nursing cleared patient for therapy Patient Identified By: Name, ID Band and Date Diagnosis: discitis, OM of thoracic spine; s/p C3-T1, T7-11 laminectomies for decompression and washout of epidural abscess on 04/22/24 (05/04/241001) Status of treatment: Treatment completed (05/04/241001) Orders: PT evaluation and treatment (05/04/241001) Weight Bearing Status: Weight bearing as tolerated (05/04/241001) Precautions: Alarms;Falls;Safety;Spine precautions (05/04/241001) Total Treatment Time--free text: (05/04/241001) Subjective: Patient pleasant and agreeable. Pain: Patient said she is having "discomfort", did not rate numerically, pain not a limiting factorduring session. P.T. Bed Mobility Roll (Right): Supervision (04/28/24 1242) Roll (Left): Minimal Assistance (05/04/241001) Sidelying-Sit: Moderate Assistance (05/04/241001) Transfers Sit-Stand: Minimal Assistance (x2) (05/04/241001) Stand-Sit: Minimal Assistance (x2) (05/04/241001) Ambulation: Distance ambulated (feet): 2 feet Assistive Device: No device Assist: Moderate assist x2 to weightshift to transfer from bed to chair Balance Sit (Static): Fair (-) (05/04/241001) Sit (Dynamic): Poor (+) (05/04/241001) Stand (Static): Poor (05/04/241001) Stand (Dynamic): Poor (-) (05/04/241001) Patient and or Family Goal(s): to get well and to return home Topic of Education: Safety with mobility and Goals/plan of care Extremity Exercise Sitting: Hip;Knee;Ankle (05/04/241001) Hip : Bilateral LE;Flexion;Adduction;Abduction;1 set of 10 (05/04/241001) Knee : Bilateral LE;Flexion;Extension;1 set of 10 (05/04/241001) Ankle: Bilateral LE;Plantar flexion;Dorsiflexion;1 set of 10 (05/04/241001) Method of Education: Verbal discussion and explanation provided to patient: demonstrated the exercise and or task Treatment Provided: Therapeutic Activities 31 minutes: bed mobility training transfer training Alarm Status Patient positioned in: Chair (05/04/241001) With: Pressure pad alarm intact and functioning and call peres in reach (05/04/241001) Patient Education Review of Precautions: Safety;Spine Precautions (05/04/241001) Safety Awareness: Needs cueing supervision (05/04/241001) Preferred learning method: Combination (05/04/241001) Barriers to learning: Medical Status (05/04/241001) Method of Education: Verbalized to patient (05/04/241001) Assessment: Patient pleasant and agreeable to therapy, supine upon arrival, motivated to participate. Review of spine precautions upon start of session. Bed mobility completed with log rolling technique. Emphasis on balance and endurance at edge of bed. Patient's sitting balance at edge of bed maintained with contact guard to minimal assist for static and dynamic activities. Sit to stands completed with assist x2 to rise. Transfer from bed to chair completed with weightshifting to advance lowerextremities. Overall, patient tolerated well. Patient was able to follow single step commands well,with increased time. Patient seated in chair upon end of treatment session, positioned with pillows for comfort and to maintain skin integrity. Call peres in reach and chair alarm on, all needs met. Please consider post-acute care services which may include home health, senior living, outpatient therapy or inpatient rehabilitation. The level of care will be determined in collaboration with patient, family/caregiver and care team members. Deficits requiring P.T. treatment needs: Safety;Mobility;Balance;Weakness;Lower extremity strength (05/04/241001) Plan: Continue with current treatment plan established on evaluation. AM PAC Score with Stairs: 12 A portion of this AM-PAC assessment not scored based on functional assessment; rather clinical decision making utilized based on current findings and/or prior level of function. Please refer to future AM-PAC calculations of functional ability as they become available. * Ancillary Progress Note - Norma Joyner COTA - 05/04/2024 9:32 AM EDT PROGRESS NOTE - Occupational Therapy [facility] [address] Name: Yakov Keller Location: [id number] Date: 05/04/2024 Time: 3:16 PM Yakov Keller is a 54 year old female. Patient Status: Inpatient Insurance: Payor: [place] Plan: [place] Product Type: *No Product type* Patient Seen: at bedside, nursing cleared patient for therapy Patient Identified By: Name, ID Band and Date Diagnosis: s/p C3- T1, T7-11 laminectomies (05/04/24931) Status of treatment: Treatment completed (05/04/24931) Orders: OT evaluation and treatment (05/04/24931) Weight Bearing Status: Weight bearing as tolerated (05/04/24931) Precautions: Alarms;Falls;Safety;Spine Precautions (05/04/24931) Total Treatment Time: 31 (05/04/24931) Subjective: " Any man or woman would say you are super gorgeous sexy you" Pain: Patient has complaints of discomfort . Pain located in back Observations Consciousness: Alert (05/04/24931) Orientation: Person;Place;Time (05/04/24931) Cognitive Limitations: Attention to task;Processing;Problem solving (05/04/24931) Psychosocial: Patient can communicate basic needs (05/04/24931) Sitting posture: Forward head;Rounded shoulders (05/04/24931) Standing posture: Forward head;Rounded shoulders (05/04/24931) Safety awareness: Needs cueing supervision. (05/04/24931) Other Findings Endurance: Sitting tolerance;Fair;Standing tolerance;Poor (05/04/24931) Coordination: LUE;RUE;Gross motor;Fine motor;Intact (04/23/241117) Current Functional Status: Activities of Daily Living: Self Care Able to provide self care: Yes (04/23/241117) Grooming: Supervision (Please comment) (wash face) (05/04/24931) Toileting: Dependent (peralta catheter) (05/04/24931) Dressing Upper Body: Minimal Assistance (down gown) (05/04/24931) Lower Body: Maximal Assistance (kelby slipper socks) (05/04/24931) Functional Ambulation Assistive Device: Rolling walker (05/04/24931) Distance in feet:: 2 (05/04/24931) Level of Assistance: Minimal Assistance (in A x2 to Mod A x2) (05/04/24931) Bed Mobility Roll (Left): Minimal Assistance (05/04/24931) Supine-Sit: Not Tested (04/28/24 1219) Sidelying - Sit: Moderate Assistance (05/04/24931) OT Transfers Sit-Stand: Minimal Assistance (X2) (05/04/24931) Stand-Sit: Minimal Assistance (X2) (05/04/24931) Bed-Chair: Moderate Assistance (X2 to stand pivot head of bed) (05/04/24931) Balance Sit (Static): Fair (05/04/24931) Sit (Dynamic): Fair (- to poor +) (05/04/24931) Stand (Static): Poor (05/04/24931) Stand (Dynamic): (poor to poor-) (05/04/24931) Patient Education Education Topic: Role of OT (05/04/24931) Review of Precautions: Fall;Safety (05/04/24931) Barriers to learning: Medical status (05/04/24931) Preferred learning method: Combination (05/04/24931) Alarm Status Patient positioned in: Chair (05/04/24931) With: Pressure pad alarm intact and functioning and call peres in reach (05/04/24931) Following session patient seated OOB in chair with chair alarm activated and cord plugged into callbell system. Treatment Provided: Self Residential Management Trainin minutes Therapeutic Activity: 16 minutes Deficits requiring O.T. treatment needs: ADL/self- care;Balance;Endurance;Functional mobility;Functional cognition;Safety;Upper extremity strength;Upper extremity range of motion;Weakness (05/04/24931) Assessment: Patient was found laying supine in bed upon arrival to room; awake and alert: Orientation X3 which is improving. Continues to demonstrate bed mobility with mod A x1 with assistance provided to facilitate L LE off bed and trunk in upright postion. ; Patient tolerated sitting edge of bed ~ 15 minutes with focus on ADL's listed above. She required at most minimal assistance for sitting balance due to posterior lean with fatigue and discomfort in back. She was able to follow spine precautions throughout session; Patient continues to demonstrate difficulty with ADL's listed above due to decreased strength, decreased functional reach, impaired balance, decreased endurance, and discomfo rt . She continues to require assistance of 2 for functional transfers with side by side assistanceand was able to take 2 steps bed to chair provided with assistance and verbal cues to weight shift L/R. Please consider post-acute care services which may include home health, senior living, outpatient therapy or inpatient rehabilitation. The level of care will be determined in collaboration withpatient, family/caregiver and care team members. Plan: Will continue to follow patient per plan of care. Anticipated Frequency (on eval): 3 to 5 times per week (05/04/24931) AM-PAC Help From Another Person Eating Meals: A little (05/04/24931) Help From Another Person Taking Care of Personal Grooming: A little (05/04/24931) Help From Another Person To Put On/Take Off Upper Body Clothing: A little (05/04/24931) Help From Another Person To Put On/Take Off Lower Body Clothing: A lot (05/04/24931) Help From Another Person Toileting: A lot (05/04/24931) Help From Another Person Bathing: A lot (05/04/24931) OT AM-PAC Score: 15 (05/04/24931) OT AM-PAC t-Scale Score: 34.69 (05/04/24931) HLM (Highest Level of Mobility) Goal: Level 4 move to chair/commode (05/04/24 1002) A portion of this AM-PAC assessment not scored based on functional assessment ; rather clinical decision making utilized based on current findings and/or prior level of function. Please refer to future AM-PAC calculations of functional ability as they become available. * Progress Notes - Post-Op Angely - Bhanu Montero MD - 05/03/2024 4:53 PM EDT I saw the patient this afternoon. She did have 1 of her friends at the bedside. She was a bit more combative than normal, very tangential in her speech, uttering vulgaris 80s add us during the courseof the encounter. She was currently restrained. As best I can tell the strength is good throughout with no new neurologic deficit. Nuchal rigidity has resolved incisions all look good. No fevers. Shedid not give me good effort in terms of the left quadriceps but the remainder of the lower extremity myotomes are all full strength. She has no long tract signs to include patellar hyperreflexia or ankle clonus. I do not really have any clinical concerns regarding her neurologic status. I am not lyly te sure what to make of the seeming deterioration of the mental status although it is probably a combination of delirium perhaps superimposed upon her baseline disability. Continue antibiotics for now. I know labs are pending sent by the primary team. I do not see a clear reason to reimage the spine, I know the abscesses going to be present and postsurgical changes will be noted but there was nothing I would do differently at this time given her neurologic status looking so good. I did explain all this in detail with the patient and to her music director. All questions answered. We will continue to follow for now. Bhanu Montero [facility] This document was dictated using voice recognition software. Please excuse any errors. * Ancillary Progress Note - Johanny Doss RN - 05/03/2024 12:35 PM EDT CARE MANAGEMENT - ADULT TRANSITION NOTE [facility] [address] Name: Yakov Keller Location: [facility] Date: 05/03/2024 Time: 12:36 PM Risk Stratification Risk Stratification Psycho Social / Medical Concerns Identified: Adjustment to illness/injury (04/23/24 1207) Readmission Risk Score: 9.84 (05/03/24 1201) AM-PAC Score With Stairs : 15 (05/02/24 0700) Caregiver Information Patient Contacts Name Relation Home Work Mobile Maya Bruce Sibling [phone] Margi Menezes Friend [phone] Mariangel Sullivan (friend) Friend [phone] Transition of Care Checklist Transition of Care Checklist (aka Readmission Risk Score) Discharge Disposition: Post-Acute (04/28/24917) Narrative: CM has been following Marlene's hospital course. Discussed in IDT rounds. Marlene is not currently medically stable for discharge. Marlene removed her PICC last evening, will need IR to replace. And disconnected her peralta then was aggressive with bedside nurse. [facility] requests to delay transport until delirium is controlled and PICC replaced. Mariangel, susana updated. She now requests to call foster sister Maya for all updates. CM will continue to follow for additional discharge needs/plans. Anticipated Transportation at Discharge: BLS Patient/Family Expectations: IRF Transition Planning Transition Planning Transition Plan/Considerations: Discussed at Interdisciplinary Team / Boost Rounds (04/28/24917) Insurance Considerations: Other - Comment ([place] pending) (04/28/24917) Referral to Community Agency : N/A (04/28/24917) Post-Acute Care needs identified and Referrals Completed: Occupational Therapy;Physical Therapy;Speech Therapy (04/28/24917) Agency Choice Due to: Patient preference (04/28/24917) Additional Considerations: Care Management will continue to monitor and assist with discharge planning needs * Care Plan - Chaya Ayers RN - 05/03/2024 4:14 AM EDT Clinical Goal(s): Pt will remain safe for shift duration (05/02/24 0700) Possible barriers to meeting goal(s)/advancing plan of care: Patient is a poor candidate for safetygoals. Stability of the patient: Moderately stable - low risk of patient condition declining or worsening Summary regarding today's goal(s): Met: Patient has remained safe during this shift 05/02/24 Recommendations: hourly rounding, patient now in B/L wrist restraints. * Communication - Mery Kramer MD - 05/02/2024 5:35 PM EDT Notified by RN that patient removed her right arm PICC this afternoon. She was evaluated by PICC team and pressure dressing was placed over insertion site, no bleeding. Line removed prior to my inspection however PICC team reported with intact tip. I ordered a CXR for evaluation as recommended by IR. * Care Plan - Peyton Ledesma RN - 05/02/2024 3:10 PM EDT Clinical Goal(s): Pt will remain safe for shift duration (05/02/24 0700) Possible barriers to meeting goal(s)/advancing plan of care: PT condition Stability of the patient: Moderately stable - low risk of patient condition declining or worsening Summary regarding today's goal(s): Met: Pt remained safe for shift duration Recommendations: Fall precautions as needed * Progress Notes - Non-Billable - Bhanu Montero MD - 05/02/2024 2:40 PM EDT I saw the patient today, overall she was doing very well, wound is healing well without erythema ordrainage. Neurologic exam is very good, good strength, does not appear to have any nuchal rigidity as she did on admission given the difficulty with examination due to her mental status. Continue current management, defer management of antibiotics to the primary team/Infectious Disease, we will see the patient in the office for routine wound check. All questions answered. Bhanu Montero [facility] This document was dictated using voice recognition software. Please excuse any errors. * Ancillary Progress Note - Johanny Doss RN - 05/02/2024 11:21 AM EDT CARE MANAGEMENT - ADULT DISCHARGE NOTE [facility] [address] Name: Yakov Keller Location: [facility] Date: 05/02/2024 Time: 11:22 AM The following coordination of care and discharge plan has been coordinated with the care team, patient, family and/or caregiver according to the patients needs and preferences. Discharge Discharge Second Notice Important Message from Medicare delivered: Not Applicable (04/28/24917) Was Caregiver/Family/Facility contacted regarding discharge: Yes (04/28/24917) Discharge Transportation: BLS (04/28/24917) Patient declined post-hospital transition of care recommendation: N/A (04/28/24917) Final Discharge Plan (Complete only at time of Discharge): IP Rehab (04/28/24918) Destination - Admitted Since 04/20/2024 Service Provider Selected Services Address Phone Fax Patient Preferred Last Updated [facility] [address] [place] [address] [phone] -- Johanny Doss RN 04/28/2024918 Narrative: Discharge destination time-out called during BOOST rounds, all parties agreeable with transition plan of care. BLS transport has been claimed for 05/03 at 0915. Friend Mariangel was updated. Yulia updated. * Ancillary Progress Note - Lien Stacy COTA/L - 05/02/2024 10:26 AM EDT PROGRESS NOTE - Occupational Therapy [facility] [address] Name: Yakov Keller Location: [facility] Date: 05/02/2024 Time: 10:26 AM Attempted to see patient for OT treatment session. Upon arrival into room, patient talking nonstop and not making sense. Patient yelled "stop" when asked about participating in therapy session. Afterdiscussion with RN, session deferred at this time d/t patient's current presentation. Will continueto follow as able and appropriate. * Ancillary Progress Note - Cheri Sahu PTA - 05/02/2024 10:24 AM EDT PROGRESS NOTE - Physical Therapy [facility] [address] Name: Yakov Keller Location: [facility] Date: 05/02/2024 Time: 10:24 AM Attempted to see patient for physical therapy services however upon entering the room and attempting conversation with patient regarding therapy, patient yelled, "stop!" and began speaking nonsensibly. After further discussion with primary nurse, patient is currently on medical hold due to current patient presentation. Will continue to follow patient as able. * Care Plan - Chaya Ayers RN - 05/02/2024 1:48 AM EDT Clinical Goal(s): Pt will remain safe for shift duration (05/01/24 0721) Possible barriers to meeting goal(s)/advancing plan of care: Patient is in a talkative rambling phase. Stability of the patient: Moderately stable - low risk of patient condition declining or worsening Summary regarding today's goal(s): Met: Patient has remained safe for the duration of this shift. Recommendations: Frequent rounding, bed alarms activated, assessing for pain. * Communication - Mery Kramer MD - 05/01/2024 3:19 PM EDT Paged by RN stating patient was found attempting to move her PICC line. She was evaluated by PICC team and PICC was redressed and wrapped. A CXR was ordered for verification of PICC position. I also spoke with patient's friend Mariangel Sullivan and provided her with an update. She reports she does not believe patient has a formal psychologic diagnosis however states patient at baseline is hyperverbal and goes off on tangents and will often need redirection. States patient was raised by a foster family and was never formally adopted. 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 Updates were given regarding clinical plan and plan for discharge to inpatient rehabilitation facility. All questions were answered to apparent satisfaction. 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 Limited weight hx on file, only weight on file for [employer] 64kg obtained in March 2024. In admission weight gain noted but then declined likely fluid change ~10kg gain. Current weight consistent with [employer] weight Anthropometrics Measurements Admission weight (for dietitians): 68 kg Height: 157.5 cm (5' 2") (04/20/24 1721) Weight: 63.3 kg (139 lb 9.6 oz) (05/01/24 0339) BMI: 27.43 (04/20/24 1721) Usual Body Weight: 64kg Diet History: Previously followed diet: Regular Food Allergies/Intolerances: no known Current Diet/Supplements: Diet: Regular Oral Nutrition Supplement (ONS): none Pertinent medications/vitamins/minerals/supplements: ancef, melatonin, miralax, senokot-s RISK FACTORS: Adult Energy Intake: Less than 75% of estimated energy requirement for greater than 7 days (moderate, acute illness). Interpretation of Weight Change: No recent/significant weight change Skin: Compromise without nutrition-related implications -Surgical incision back NUTRITION RISK CATEGORY: Nutrition Risk Category: Low/Moderate (0-1 factors) Clinical Nutrition Recommendations: Diet: Continue current nutrition plan NUTRITION INTERVENTION/PLAN: Continue current care plan Will follow and adjust nutritional plan as medical condition requires. Please contact for change(s)in patient condition requiring earlier intervention. Larissa MORALESN [facility] Clinical Nutrition Services [place] Text / x [phone] * Care Plan - Peyton Ledesma RN - 05/01/2024 2:26 PM EDT Clinical Goal(s): Pt will remain safe for shift duration (05/01/24 0721) Possible barriers to meeting goal(s)/advancing plan of care: Pt condition Stability of the patient: Moderately stable - low risk of patient condition declining or worsening Summary regarding today's goal(s): Met: PT remained safe for shift duration Recommendations: Fall precautions as needed * Ancillary Progress Note - Johanny Doss RN - 05/01/2024 1:19 PM EDT CARE MANAGEMENT - ADULT TRANSITION NOTE [facility] [address] Name: Yakov Keller Location: [facility] Date: 05/01/2024 Time: 1:25 PM Risk Stratification Risk Stratification Psycho Social / Medical Concerns Identified: Adjustment to illness/injury (04/23/24 1207) Readmission Risk Score: 10.41 (05/01/24 1201) AM-PAC Score With Stairs : 15 (05/01/24 0721) Caregiver Information Patient Contacts Name Relation Home Work Mobile Mariangel Sullivan Friend [phone] Maya Bruce Sibling [phone] Margi Menezes Friend [phone] Transition of Care Checklist Transition of Care Checklist (aka Readmission Risk Score) Discharge Disposition: Post-Acute (04/28/24917) Narrative: CM has been following Marlene's hospital course. Discussed in IDT rounds. Marlene is currently medically stable for discharge. PICC has been placed. Friend and LLOYDMariangel was updated. Transport pending. Instrumentation And Controls Designer to assist. SOURAV Bender updated. CM will continue to follow for additional discharge needs/plans. Anticipated Transportation at Discharge: BLS Patient/Family Expectations: IRF Transition Planning Transition Planning Transition Plan/Considerations: Discussed at Interdisciplinary Team / Boost Rounds (04/28/24917) Insurance Considerations: Other - Comment ([place] pending) (04/28/24917) Referral to Community Agency : N/A (04/28/24917) Post-Acute Care needs identified and Referrals Completed: Occupational Therapy;Physical Therapy;Speech Therapy (04/28/24917) Agency Choice Due to: Patient preference (04/28/24917) Additional Considerations: Care Management will continue to monitor and assist with discharge planning needs * Ancillary Progress Note - Cheri Sahu PTA - 05/01/2024 10:31 AM EDT PROGRESS NOTE - Physical Therapy [facility] [address] Name: Yakov Keller Location: RADIOLOGY WAITING ROOM/IR Date: 05/01/2024 Time: 10:31 AM Attempted to see patient for physical therapy services however patient is currently off the floor at radiology making them unavailable for services at this time. Will continue to follow patient as able. * Postprocedure Note - Edwin Bangura DO - 05/01/2024 10:30 AM EDT PROCEDURE NOTE - Interventional Radiology [address] [address] Name: Yakov Keller Location: RADIOLOGY WAITING ROOM/IR Date: 05/01/2024 Time: 11:34 AM PROCEDURE: Right PICC placement WATER SAFETY TEACHER: Dr. James Lester ASSISTANTS: Dr. Edwin Bangura ANESTHESIA: local COMPLICATIONS: none SPECIMEN: none ESTIMATED BLOOD LOSS: negligible FINDINGS: Successful Right Brachial Vein PICC placement * Ancillary Progress Note - Hetal Girard OTA - 05/01/2024 9:45 AM EDT PROGRESS NOTE - Occupational Therapy [address] [address] Name: Yakov Keller Location: [facility] Date: 05/01/2024 Time: 9:45 AM Attempted to see patient for occupational therapy services this morning. Patient not following therapist commands and states "stop" when therapist put bed rail down. RN aware. Will continue to followas able and appropriate. * Care Plan - Reagan Son, TEE - 05/01/2024 6:45 AM EDT Clinical Goal(s): Pt will remain free from falls during this shift (04/30/24 1900) Possible barriers to meeting goal(s)/advancing plan of care: confusion, weakness Stability of the patient: Moderately stable - low risk of patient condition declining or worsening Summary regarding today's goal(s): Met: Pt remained free from falls during this shift Recommendations: Continue fall precautions and purposeful hourly rounding * Care Plan - Cassie Yee RN - 04/30/2024 3:12 PM EDT Clinical Goal(s): Patient will remain free from injury for duration of shift (04/30/24 0700) Possible barriers to meeting goal(s)/advancing plan of care: Weakness, cognitive impair Stability of the patient: Moderately stable - low risk of patient condition declining or worsening Summary regarding today's goal(s): Met: Met Recommendations: Continue to implement safety precautions * Communication - Mery Kramer MD - 04/30/2024 12:33 PM EDT Attempted to reach patient's friend Margi Menezes via phone call, unfortunately she did not answer the phone. I left a VM. Will continue trying as able. * Care Plan - Agnieszka Zafar RN - 04/30/2024 12:27 AM EDT Problem: Safety & Risk for Injury Goal: Patient will remain free from injury. Outcome: Progressing Clinical Goal(s): Patient will remain free from injury this shift (04/29/24 2300) Possible barriers to meeting goal(s)/advancing plan of care: Patient Condition Stability of the patient: Moderately stable - low risk of patient condition declining or worsening Summary regarding today's goal(s): Met: Patient remains free from injury this shift Recommendations: Continue with current POC * Care Plan - Cassie Yee RN - 04/29/2024 3:26 PM EDT Clinical Goal(s): Patient will remain free from injury for duration of shift (04/29/24 0800) Possible barriers to meeting goal(s)/advancing plan of care: Weakness Stability of the patient: Moderately stable - low risk of patient condition declining or worsening Summary regarding today's goal(s): Met: Met Recommendations: Continue to implement safety precautions * Communication - Mery Kramer MD - 04/29/2024 2:39 PM EDT Attempted to reach patient's friend, Rebecca Sullivan as requested by Ms Keller, however she did not answer. I left a voice mail, will continue to attempted as able. * Ancillary Progress Note - Janet Thornton COTA/L - 04/29/2024 12:24 PM EDT Occupational Therapy Progress Note Michaeljackelin Keller [facility] [id number] 04/29/2024 Attempted to see pt this afternoon for skilled OT session, however, pt currently not appropriate for OT due to mentation. Will follow as able. * Ancillary Progress Note - Lyssa Wagner PTA - 04/29/2024 12:06 PM EDT Physical Therapy Progress Note Yakov Keller [facility] [id number] 04/29/2024 Attempted to see pt for PT treatment session. Upon arrival pt not appropriate for therapy services at this time due to mentation. Will continue to follow. * Ancillary Progress Note - Tiffany Gonzalez RN - 04/29/2024 8:19 AM EDT CARE MANAGEMENT - ADULT TRANSITION NOTE [facility] [address] Name: Yakov Keller Location: [facility] Date: 04/29/2024 Time: 8:19 AM Risk Stratification Risk Stratification Psycho Social / Medical Concerns Identified: Adjustment to illness/injury (04/23/24 1207) Readmission Risk Score: 9.95 (04/29/24 0800) AM-PAC Score With Stairs : 11 (04/28/24 1242) Caregiver Information Patient Contacts Name Relation Home Work Mobile Mariangel Sullivan Friend [phone] Maya Bruce Sibling [phone] Margi Menezes Friend [phone] Transition of Care Checklist Transition of Care Checklist (aka Readmission Risk Score) Discharge Disposition: Post-Acute (04/28/24 0918) Narrative: CM has been following Mary's hospital course. Patient discussed in IDT rounds. They are not medically stable for discharge at this time. Patient still pending additional CT and PICC line. Discharge plan evolving - CM will continue to follow for discharge needs. CM spoke with Bud from [place] and ride was cancelled in roundtrip. Patient still pending additional CT and will need PICC placed. Anticipated Transportation at Discharge: [facility] Patient/Family Expectations: [facility] Transition Planning Transition Planning Transition Plan/Considerations: Discussed at Interdisciplinary Team / Boost Rounds (04/28/24917) Insurance Considerations: Other - Comment ([place] pending) (04/28/24917) Referral to Community Agency : N/A (04/28/24917) Post-Acute Care needs identified and Referrals Completed: Occupational Therapy;Physical Therapy;Speech Therapy (04/28/24917) Agency Choice Due to: Patient preference (04/28/24917) Additional Considerations: n/a Care Management will continue to monitor and assist with discharge planning needs * Care Plan - Agnieszka Zafar RN - 04/29/2024 2:27 AM EDT Problem: Safety & Risk for Injury Goal: Patient will remain free from injury. 04/29/2024226 by Agnieszka Zafar RN Outcome: Progressing 04/29/2024226 by Agnieszka Zafar RN Outcome: Progressing Clinical Goal(s): Patient will remain free from injury this shift (04/29/24 0054) Possible barriers to meeting goal(s)/advancing plan of care: Patient Condition Stability of the patient: Moderately stable - low risk of patient condition declining or worsening Summary regarding today's goal(s): Met: Patient remains free from injury this shift Recommendations: Continue with current POC * Care Plan - Peyton Ledesma RN - 04/28/2024 3:24 PM EDT Clinical Goal(s): Pt will remain safe for shift duration (04/28/24 0811) Possible barriers to meeting goal(s)/advancing plan of care: PT condition Stability of the patient: Moderately stable - low risk of patient condition declining or worsening Summary regarding today's goal(s): Met: Pt remained safe Recommendations: Fall precautions as needed * Ancillary Progress Note - Pau Gaviria PTA - 04/28/2024 12:42 PM EDT PROGRESS NOTE - Physical Therapy [address] [address] Name: Yakov Keller Location: [facility] Date: 04/28/2024 Time: 12:42 PM Yakov Keller is a/an 54 year old female. Patient Status: Inpatient Insurance: Payor: PENDING MEDICAID Plan: PENDING MEDICAID Product Type: *No Product type* Patient Seen: at bedside, nursing cleared patient for therapy Patient Identified By: Name, ID Band and Date Diagnosis: discitis, OM of thoracic spine; s/p C3-T1, T7-11 laminectomies for decompression and washout of epidural abscess on 04/22/24 (04/28/241241) Status of treatment: Treatment completed (04/28/241241) Orders: PT evaluation and treatment (04/28/241241) Weight Bearing Status: Weight bearing as tolerated (04/28/241241) Precautions: Alarms;Falls;Safety;Spine precautions (04/28/241241) Total Treatment Time--free text: 23 (04/28/241241) Subjective: Pt agreeable to treatment Pain: No complaints of pain P.T. Bed Mobility Roll (Right): Supervision (04/28/241241) Sidelying-Sit: Moderate Assistance (04/28/241241) Transfers Sit-Stand: Moderate Assistance (x2; and minimal assistance from 2 from bed) (04/28/241241) Stand-Sit: Moderate Assistance (x2) (04/28/241241) Ambulation: Distance ambulated (feet): 1 Assistive Device: Rolling walker Assist: Maximal Assistance x2 Balance Sit (Static): Fair (04/28/241241) Sit (Dynamic): (fair -) (04/28/241241) Stand (Static): Poor (04/28/241241) Stand (Dynamic): (Poor -) (04/28/241241) Patient and or Family Goal(s): to get well Topic of Education: Safety with mobility, Use of assistive device, and Fall prevention Method of Education: Verbal discussion and explanation provided to patient: verbalized understanding and or agreement of this information Treatment Provided: Therapeutic Activities 15 minutes: bed mobility training transfer training Gait Training 8 minutes: gait training with rolling walker Alarm Status Patient positioned in: Chair (04/28/241241) With: Pressure pad alarm intact and functioning and call peres in reach (04/28/241241) Following session patient seated OOB in chair with chair alarm activated and cord plugged into callbell system. Patient Education Review of Precautions: Safety;Spine Precautions;Fall (04/28/241241) Safety Awareness: Needs cueing supervision (04/28/241241) Preferred learning method: Combination (04/28/241241) Barriers to learning: Medical Status;Medication;Cognition;Hearing (04/28/241241) Method of Education: Verbalized to patient;Patient demonstrated task (04/28/241241) Assessment: Pt was supine in bed prior to therapy arrival. She was Moderate assistance to sit at Edge of bed from supine. Pt required assistance from 2 to stand from Edge of bed with Rolling walker. Pt encouraged to ambulate to bedside chair with Rolling walker. She required heavy manual and tactile cues for device management and step acceleration. Upon second sit to stand transfer, pt encouragedto practice standing marches however, pt became fearful and declined further activities. Pt had a difficult time following commands and weight shifting lower extremities to mimic ambulation. Ended session with pt resting in chair, all needs met. Please consider post-acute care services which may inc lude home health, senior living, outpatient therapy or inpatient rehabilitation. The level of care will be determined in collaboration with patient, family/caregiver and care team members. Deficits requiring P.T. treatment needs: Safety;Mobility;Balance;Weakness;Endurance;Lower extremitystrength (04/28/241241) Plan: Continue with current treatment plan established on evaluation. AM PAC Score with Stairs: 11. A portion of this AM-PAC assessment not scored based on functional assessment; rather clinical decision making utilized based on current findings and/or prior level of function. Please refer to future AM- PAC calculations of functional ability as they become available. * Ancillary Progress Note - Norma Joyner COTA - 04/28/2024 12:19 PM EDT PROGRESS NOTE - Occupational Therapy [address] [address] Name: Yakov Keller Location: [facility] Date: 04/28/2024 Time: 2:50 PM Yakov Keller is a 54 year old female. Patient Status: Inpatient Insurance: Payor: PENDING MEDICAID Plan: PENDING MEDICAID Product Type: *No Product type* Patient Seen: at bedside, nursing cleared patient for therapy Patient Identified By: Name, ID Band and Date Diagnosis: s/p C3- T1, T7-T11 laminectomies (04/28/241218) Status of treatment: Treatment completed (04/28/241218) Orders: OT evaluation and treatment (04/28/241218) Weight Bearing Status: Weight bearing as tolerated (04/28/241218) Precautions: Alarms;Falls;Safety;Spine Precautions (04/28/241218) Total Treatment Time: 23 (04/28/241218) Subjective: Agreeable to therapy with encouragement Pain: Patient has complaints of pain. Pain located neck, but did not rate; primary nurse aware Observations Consciousness: Alert (04/28/241218) Orientation: Person;Place (04/28/241218) Cognitive Limitations: Attention to task;Processing;Problem solving (04/28/241218) Psychosocial: Patient can communicate basic needs (04/28/241218) Sitting posture: Forward head;Rounded shoulders;Posterior lean (04/28/241218) Standing posture: Forward head;Rounded shoulders;Posterior lean (04/28/241218) Safety awareness: Needs cueing supervision. (04/28/241218) Other Findings Endurance: Sitting tolerance;Fair;Standing tolerance;Poor (04/28/241218) Coordination: LUE;RUE;Gross motor;Fine motor;Intact (04/23/241117) Current Functional Status: Activities of Daily Living: Self Care Able to provide self care: Yes (04/23/241117) Grooming: Supervision (Please comment) (wash face) (04/28/241218) Toileting: Not Tested (04/28/241218) Dressing Upper Body: Not Tested (04/28/241218) Lower Body: Not Tested (04/28/241218) Functional Ambulation Assistive Device: Rolling walker (04/28/241218) Distance in feet:: 1 (04/28/241218) Level of Assistance: Maximal Assistance (X2) (04/28/241218) Bed Mobility Roll (Left): Supervision (04/28/241218) Supine-Sit: Not Tested (04/28/241218) Sidelying - Sit: Moderate Assistance (04/28/241218) OT Transfers Sit-Stand: Minimal Assistance (X2 regressed to Mod A x2 b/l knee and foot block) (04/28/241218) Stand-Sit: Minimal Assistance (X2) (04/28/241218) Bed-Chair: Moderate Assistance (X2 to Max A x2) (04/28/241218) Balance Sit (Static): Fair (04/28/241218) Sit (Dynamic): Fair (-) (04/28/241218) Stand (Static): (poor) (04/28/241218) Stand (Dynamic): (poor -) (04/28/241218) Patient Education Education Topic: Role of OT (04/28/241218) Review of Precautions: Fall;Safety (04/28/241218) Barriers to learning: Medical status (04/28/241218) Preferred learning method: Combination (04/28/241218) Alarm Status Patient positioned in: Chair (04/28/241218) With: Pressure pad alarm intact and functioning and call peres in reach (04/28/241218) Treatment Provided: Therapeutic Activity: 23 minutes Deficits requiring O.T. treatment needs: ADL/self- care;Balance;Endurance;Functional mobility;Functional cognition;Safety;Upper extremity strength;Upper extremity range of motion;Weakness (04/28/241218) Assessment: Patient was found laying supine in bed upon arrival to room: she demonstrated improved bed mobility this session although continues to require assistance of 2 for functional transfer training; She required bilateral knee and foot block, cues for hand placement, rolling walker management, and cues for directional terms and passive weight shifting with maximal tactile cues to facilitateBLE's . Head and neck stiffness continues but improved; Patient able maintain spinal precautions but unable to recall precautions at this time. Patient remains limited self limiting behaviors, decreased strength, impaired balance, decreased safety awareness, decreased motor planning, problem solving, impulsivity, decreased endurance, and decreased processing. Pt would benefit from skilled OT services in order to increase independence and facilitate a safe transition to next level of care. Please consider post-acute care services which may include home health, senior living, outpatient therapy or inpatient rehabilitation. The level of care will be determined in collaboration with patient, family/caregiver and care team members. Plan: Will continue to follow patient per plan of care. Anticipated Frequency (on eval): 3 to 5 times per week (04/28/24 1219) AM-PAC assessment not scored at this time due to medical status . Please refer to future AM-PAC calculations of functional mobility as they become available. * Ancillary Progress Note - Johanny Dsos RN - 04/28/2024 9:19 AM EDT CARE MANAGEMENT - ADULT DISCHARGE NOTE [facility] [address] Name: Yakov Keller Location: [facility] Date: 04/28/2024 Time: 9:19 AM The following coordination of care and discharge plan has been coordinated with the care team, patient, family and/or caregiver according to the patients needs and preferences. Discharge Discharge Second Notice Important Message from Medicare delivered: Not Applicable (04/28/24917) Was Caregiver/Family/Facility contacted regarding discharge: Yes (04/28/24917) Discharge Transportation: BLS (04/28/24917) Patient declined post-hospital transition of care recommendation: N/A (04/28/24917) Final Discharge Plan (Complete only at time of Discharge): IP Rehab (04/28/24918) Destination - Admitted Since 04/20/2024 Service Provider Selected Services Address Phone Fax Patient Preferred Last Updated [facility] [address] [place] [address] [phone] -- Johanny Doss RN 04/28/2024 0919 Narrative: Discharge destination time-out called during BOOST rounds, all parties agreeable with transition plan of care. Transport to [facility] via BLS. Friend, Mariangel updated. * Care Plan - Laura Hoffman RN - 04/27/2024 7:00 PM EDT Clinical Goal(s): pt will remain free from falls or injury during this shift (04/27/24 0700) Possible barriers to meeting goal(s)/advancing plan of care: weakness Stability of the patient: Moderately stable - low risk of patient condition declining or worsening Summary regarding today's goal(s): Met: met Recommendations: continue purposeful hourly rounds * Progress Notes - Post-Op Global - Bhanu Montero MD - 04/27/2024 3:24 PM EDT Patient looking substantially better today. Full strength without neurologic deficit. Nuchal rigidity is much improved and she has much better mobility of the neck. White blood cell count continues to trend down although she does have possible empyema of the lung. Plan to consult Thoracic Surgery. Continue current management from a neurosurgical perspective. I did discuss the situation with Infectious diseases. Bhanu Montero [facility] Neurosurgery This document was dictated using voice recognition software. Please excuse any errors. * Ancillary Progress Note - Johanny Doss RN - 04/27/2024 9:32 AM EDT CARE MANAGEMENT - ADULT TRANSITION NOTE [facility] [address] Name: Yakov Keller Location: [facility] Date: 04/27/2024 Time: 9:32 AM Risk Stratification Risk Stratification Psycho Social / Medical Concerns Identified: Adjustment to illness/injury (04/23/24 1207) Readmission Risk Score: 9.86 (04/27/24 0800) AM-PAC Score With Stairs : 10 (04/26/24 1002) Caregiver Information Patient Contacts Name Relation Home Work Mobile Mariangel Sullivan Friend [phone] Maya Bruce [phone] Margi Menezes Friend [phone] Transition of Care Checklist Narrative: CM has been following Marlene's hospital course. Discussed in IDT rounds. Marlene is not currently medically stable for discharge. Marlene has PICC placement scheduled for 1630 today, CT pending for concern for empyema. CM left message for Mariangel meza with updates. CM updated Yulia at [facility], transport changed to 1000 with high likely to be changed pending CT outcomes. CM will continue to follow for additional discharge needs/plans. Anticipated Transportation at Discharge: BLS Patient/Family Expectations: IRF Transition Planning Additional Considerations: Care Management will continue to monitor and assist with discharge planning needs * Progress Notes - Non-Billable - David Russo MD - 04/26/2024 9:24 PM EDT Brief Neurosurgery Progress Note Drains removed Will follow up outpatient in 2 weeks for wound check Thank you for the opportunity to provide care for this patient. Please reach out to the neurosurgery service for any additional questions. * Care Plan - Laura Hoffman RN - 04/26/2024 2:45 PM EDT Clinical Goal(s): pt will remain free from falls or injury during this shift (04/26/24 0726) Possible barriers to meeting goal(s)/advancing plan of care: weakness Stability of the patient: Moderately stable - low risk of patient condition declining or worsening Summary regarding today's goal(s): Met: met Recommendations: continue purposeful hourly rounds * Ancillary Progress Note - Norma Joyner COTA - 04/26/2024 10:03 AM EDT PROGRESS NOTE - Occupational Therapy [facility] [address] Name: Yakov Keller Location: [facility] Date: 04/26/2024 Time: 10:36 AM Yakov Keller is a 54 year old female. Patient Status: Inpatient Insurance: Payor: PENDING MEDICAID Plan: PENDING MEDICAID Product Type: *No Product type* Patient Seen: at bedside, nursing cleared patient for therapy Patient Identified By: Name, ID Band and Date Diagnosis: s/p C3- T1, T7-T11 laminectomies (04/26/241003) Status of treatment: Treatment completed (04/26/241003) Orders: OT evaluation and treatment (04/26/241003) Weight Bearing Status: Weight bearing as tolerated (04/26/241003) Precautions: Alarms;Falls;Safety;Spine Precautions (04/26/241003) Total Treatment Time: 20 (04/26/241003) Subjective: Increased encouragement to participate with therapy; " Pure no" " Impossible " Pain: Patient has complaints of pain. Pain located neck and back but did not rate pain; Primary nurse addressing Observations Consciousness: Alert (04/26/241003) Orientation: Person;Place (others not tested due willingness) (04/26/241003) Cognitive Limitations: Processing;Impulsivity;Problem solving (04/26/241003) Psychosocial: Patient can communicate basic needs (04/26/241003) Sitting posture: Forward head;Rounded shoulders;Posterior lean (04/26/241003) Standing posture: Forward head;Rounded shoulders;Posterior lean (04/26/241003) Safety awareness: Needs cueing supervision. (04/26/241003) Other Findings Endurance: Functional activity;Poor (04/26/241003) Current Functional Status: Activities of Daily Living: Self Care Able to provide self care: Yes (04/23/24 111) Grooming: Supervision (Please comment) (04/23/24 111) Dressing Upper Body: Maximal Assistance (04/26/241003) Lower Body: Dependent (04/26/241003) Functional Ambulation Assistive Device: Rolling walker (04/26/241003) Distance in feet:: 0 (04/26/241003) Level of Assistance: Maximal Assistance (x2) (04/26/241003) Bed Mobility Roll (Left): Maximal Assistance (x2) (04/26/241003) Supine-Sit: Not Tested (04/26/241003) Sidelying - Sit: Maximal Assistance (x2) (04/26/241003) OT Transfers Sit-Stand: Moderate Assistance (x2) (04/26/241003) Stand-Sit: Moderate Assistance (x2) (04/26/241003) Bed-Chair: Maximal Assistance (x2) (04/26/241003) Balance Sit (Static): Fair (04/26/241003) Sit (Dynamic): (fair -) (04/26/241003) Stand (Static): (poor -) (04/26/241003) Stand (Dynamic): (poor -) (04/26/241003) Patient Education Education Topic: Role of OT (04/26/241003) Review of Precautions: Fall;Safety (04/26/241003) Barriers to learning: Medical status (04/26/241003) Preferred learning method: Combination (04/26/241003) Alarm Status Patient positioned in: Chair (04/26/241003) With: Pressure pad alarm intact and functioning and call peres in reach (04/26/241003) Following session patient seated OOB in chair with chair alarm activated and cord plugged into callbell system. Treatment Provided: Self Residential Management Trainin minutes Deficits requiring O.T. treatment needs: ADL/self- care;Balance;Endurance;Functional mobility;Functional cognition;Safety;Upper extremity strength;Upper extremity range of motion;Weakness (04/26/241003) Assessment: Patient was found laying supine in bed upon arrival to room: awake and alert. Patient was oriented to person and place, as patient was self limiting and not willing to answer questions. Patient continues to require assistance of 2 for bed mobility and sit to stand/stand transfers, and stand pivot transfers with rolling walker: Pt required maximal cues for safety throughout mobility- bilateral knee buckling noted once in stance and L LE required foot block due to L LE extending outward. She required verbal cues and assistance for bilateral hand placement on rolling walker and verbal cues for directional terms when transferring bed to chair; Patient was not willing to participate in ADL session deferring tasks verbalizing " Pure NO" " "impossible", requiring maximal assistance to dependence for UB and LB dressing: Patient able to recall 2/3 spinal precautions and was able to maintain precautions with minimal cues. Head tilted mostly to the R noting increased stiffness and difficulty bringing head to midline; . No significant improvements with ADL performance and mobility; Patient remains limited self limiting behaviors, decreased strength, impaired balance, decreased safety awareness, decreased motor planning, problem solving, impulsivity, decreased endurance, and decreased processing. Pt would benefit from skilled OT services in order to increase independence and facilitate a safe transition to next level of care. Please consider post-acute care services which mayinclude home health, senior living, outpatient therapy or inpatient rehabilitation. The level of care will be determined in collaboration with patient, family/caregiver and care team members. Plan: Will continue to follow patient per plan of care. Anticipated Frequency (on eval): 3 to 5 times per week (04/26/241003) AM-PAC Help From Another Person Eating Meals: A little (04/26/241003) Help From Another Person Taking Care of Personal Grooming: A little (04/26/241003) Help From Another Person To Put On/Take Off Upper Body Clothing: A little (04/26/241003) Help From Another Person To Put On/Take Off Lower Body Clothing: A lot (04/26/241003) Help From Another Person Toileting: A lot (04/26/241003) Help From Another Person Bathing: A lot (04/26/241003) OT AM-PAC Score: 15 (04/26/241003) OT AM-PAC t-Scale Score: 34.69 (04/26/241003) HLM (Highest Level of Mobility) Goal: Level 4 move to chair/commode (04/26/24 1002) A portion of this AM-PAC assessment not scored based on functional assessment ; rather clinical decision making utilized based on current findings and/or prior level of function. Please refer to future AM-PAC calculations of functional ability as they become available. * Ancillary Progress Note - Cheri Sahu PTA - 04/26/2024 10:02 AM EDT PROGRESS NOTE - Physical Therapy [facility] [address] Name: Yakov Keller Location[place] [facility] Date: 04/26/2024 Time: 10:02 AM Yakov Keller is a/an 54 year old female. Patient Status: Inpatient Insurance: Payor: PENDING MEDICAID Plan: PENDING MEDICAID Product Type: *No Product type* Patient Seen: at bedside, nursing cleared patient for therapy Patient Identified By: Name, ID Band and Date Diagnosis: discitis, OM of thoracic spine; s/p C3-T1, T7-11 laminectomies for decompression and washout of epidural abscess on 04/22/24 (04/26/241001) Status of treatment: Treatment completed (04/26/241001) Orders: PT evaluation and treatment (04/26/241001) Weight Bearing Status: Weight bearing as tolerated (04/26/241001) Precautions: Alarms;Falls;Safety;Spine precautions (KRISTAL) (04/26/241001) Total Treatment Time--free text: 20 (04/26/241001) Subjective: "Pure no. I'm learning." Pain: Patient has complaints of pain. Pain located in her back. Patient did not formally rate pain.Primary nurse made aware and addressed pain while in the room. P.T. Bed Mobility Roll (Left): Maximal Assistance (x2) (04/26/241001) Sidelying-Sit: Maximal Assistance (x2) (04/26/241001) Transfers Sit-Stand: Moderate Assistance (x2) (04/26/241001) Stand-Sit: Moderate Assistance (x2) (04/26/241001) W/C-Bed/Mat: Maximal Assistance (x2) (04/26/241001) Balance Sit (Static): Fair (poor +) (04/26/241001) Sit (Dynamic): (fair -) (04/26/241001) Stand (Static): (poor-) (04/26/241001) Stand (Dynamic): (poor -) (04/26/241001) Patient and or Family Goal(s): to get well Topic of Education: Safety with mobility Method of Education: Verbal discussion and explanation provided to patient: verbalized understanding and or agreement of this information and demonstrated the exercise and or task Treatment Provided: Therapeutic Activities 20 minutes: bed mobility training transfer training Alarm Status Patient positioned in: Chair (04/26/241001) With: Pressure pad alarm intact and functioning and call peres in reach (04/26/241001) Following session patient seated OOB in chair with chair alarm activated and cord plugged into callbell system. Patient Education Review of Precautions: Safety;Spine Precautions;Fall (04/26/241001) Safety Awareness: Patient does not verbalize insight of current deficits;Patient does not demonstrates carryover of insight during functional tasks;Patient can communicate basic needs;Needs cueing supervision (04/26/241001) Preferred learning method: Combination (04/26/241001) Barriers to learning: Medical Status;Medication;Cognition;Hearing (04/26/241001) Method of Education: Verbalized to patient;Patient demonstrated task (04/26/241001) Assessment: Patient was seen supine in bed upon arrival and agreeable to work with physical therapyservices. RN present at the start of treatment and addressed pain prior to mobility. Patient required education on spinal precautions prior to mobility. Patient performed bed mobility via log roll paxton hnique with a maximal assist x2 and increased cues for body mechanics and took a brief seated rest break at the edge of the bed for approximately 5 minutes. Patient the continued to performed sit to stand from the bed with a moderate assist x2 and experienced slight B/L knee buckling once in full stand requiring a B/L knee block. Patient also required cues to bear weight through B/L Ue's. Patientperformed a stand pivot transfer from the bed to the chair with a maximal assist x2 and maximal cues for weight shifting/ safety , rolling walker management, and to avoid posterior lean. Patient alsonoted to required LLE foot block throughout the stand pivot throughout the stand pivot transfer dueto her LLE extending outside of her GILBERT. ended session with patient reclined int he chair with pillows for comfort, pressure pad alarm activated, and call peres within reach. Further mobility differedat this time due to increase in pain and for safety. Patient continues to require maximal cues for safety and cues to maintain spainl precautions throughout mobility. Please consider post-acute care services which may include home health, senior living, outpatient therapy or inpatient rehabilitation. The level of care will be determined in collaboration with patient, family/caregiver and care team members. Deficits requiring P.T. treatment needs: Safety;Mobility;Balance;Weakness;Endurance;Lower extremitystrength (04/26/241001) Plan: Continue with current treatment plan established on evaluation. AM PAC Score with Stairs: 10 A portion of this AM-PAC assessment not scored based on functional assessment; rather clinical decision making utilized based on current findings and/or prior level of function. Please refer to future AM-PAC calculations of functional ability as they become available. * Progress Notes - Post-Op Global - David Russo MD - 04/26/2024 9:26 AM EDT NEUROLOGICAL SURGERY PROGRESS NOTE [address] [address] Name: Yakov Keller Location[place] [facility] Date: 04/26/2024 Time: 9:26 AM Hospital day number: 6 SUBJECTIVE: BRENTON OBJECTIVE: Most recent vital signs: BP: 141 mmHg/84 mmHg (04/26/24725) Pulse: 101 (04/26/24725) Resp: 18 (04/26/24725) Temp: 36.78 C (04/26/24725) Temp Summary: Temp Min: 36.2 C (97.2 F) Max: 37.1 C (98.8 F) SpO2: 100 % (04/26/24725) O2 flow rate: 1 L/MIN (04/26/24725) Supplemental O2 Delivery: Nasal Cannula (04/26/24725) Vital signs over last 24 hours: Systolic BP: Most Recent Systolic BP Av mmHg Min: 106 mmHg Max: 150 mmHg Temperature: Most Recent Temperature Av.8 C Min: 36.22 C Max: 37.11 C Pulse: Pulse Avg: Pulse Av.1 Min: 92 Max: 109 Respirations: Resp Av.9 Min: 16 Max: 22 SpO2: SpO2 Av.3 % Min: 93 % Max: 100 % SpO2: SpO2 Av.3 % Min: 93 % Max: 100 % FiO2%: No data recorded ICP: No data found.CPP (adult): No data found.Intake Vent Settings: Input/Output: (last 24 hours) Intake/Output Summary (Last 24 hours) at 04/26/2024925 Last data filed at 04/26/2024 0700 Gross per 24 hour Intake 521.25 ml Output 2860 ml Net -2338.75 ml Wound care: Surgical Site: clean, dry, intact Drains: KRISTAL x2 (KRISTAL 04/24) Physical exam: Alert Comfortable Follows commands in all 4 extremities with resistance power Peralta in place Labs: Reviewed Imaging studies: My interpretation of: No new images Problem list: Patient Active Problem List Diagnosis Bacteremia due to Staphylococcus Spondylosis of thoracic region without myelopathy or radiculopathy Constipation Epidural abscess Acute osteomyelitis (HCC) Acute hypoxemic respiratory failure (HCC) Status post laminectomy Urinary retention Adjustment disorder CLINICAL HISTORY AND PLAN: 54 year old female patient with holo spinal ventral epidural abscess now status post C3 to T1 and T7-T11 laminectomies for decompression and washout of epidural abscess by Dr. 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 Please check the phonebook for the neurosurgery first call for any additional questions. Case discussed with attending physician. * Ancillary Progress Note - Johanny Doss RN - 04/26/2024 9:04 AM EDT CARE MANAGEMENT - ADULT TRANSITION NOTE [facility] [address] Name: Yakov Keller Location: [facility] Date: 04/26/2024 Time: 9:04 AM Risk Stratification Risk Stratification Psycho Social / Medical Concerns Identified: Adjustment to illness/injury (04/23/24 1207) Readmission Risk Score: 10.27 (04/26/24 0800) AM-PAC Score With Stairs : 12 (04/25/241999) Caregiver Information Patient Contacts Name Relation Home Work Mobile Mariangel Sullivan Friend [phone] Maya Bruce Sibling [phone] Margi Menezes Friend [phone] Transition of Care Checklist Narrative: CM has been following Marlene's hospital course. Discussed in IDT rounds. Marlene is not currently medically stable for discharge. She is getting PICC in IR today. Final Rec's for Cefazolin 2g IV Q8hrs until 06/18. Transport will be requested for 1600 today. Friend Mariangel updated on plan, agree's and will be happy when Marlene is closer to home. Yulia at [facility] updated. Update 1445, service would like to keep Marlene 1 more night, needs PICC placed. Yulia updated. Trip claimed for 1230 [facility] for 04/27. CM will continue to follow for additional discharge needs/plans. Anticipated Transportation at Discharge: BLS Patient/Family Expectations: IRF Transition Planning Additional Considerations: Care Management will continue to monitor and assist with discharge planning needs * Care Plan - Hetal Marie RN - 04/26/2024 2:19 AM EDT Clinical Goal(s): pt will be free from falls and injury during shift (04/26/24 0205) Possible barriers to meeting goal(s)/advancing plan of care: weakness Stability of the patient: Moderately stable - low risk of patient condition declining or worsening Summary regarding today's goal(s): Met: Pt remain free from falls and injury during this shift Recommendations: Hourly rounding. Call peres, bed alarm * Care Plan - Luna Aguilar RN - 04/25/2024 5:31 PM EDT Clinical Goal(s): Patient will remain free of injury all shift (04/24/24 2300) Possible barriers to meeting goal(s)/advancing plan of care: Mobility Stability of the patient: Moderately stable - low risk of patient condition declining or worsening Summary regarding today's goal(s): Not Met: Recommendations: Continue purposeful rounding * Ancillary Progress Note - Norma Joyner COTA - 04/25/2024 2:20 PM EDT Occupational Therapy Progress Note Yakov Keller [facility] [id number] 04/25/2024 Attempted to see patient today for Occupational therapy treatment session. Patient currently off the floor for procedure . Will continue to follow as able. * Ancillary Progress Note - Cheri Sahu PTA - 04/25/2024 2:18 PM EDT PROGRESS NOTE - Physical Therapy [facility] [address] Name: Yakov Keller Location: [facility] Date: 04/25/2024 Time: 2:19 PM Attempted to see patient for physical therapy services however patient is currently off the floor at cardiac studies making them unavailable for services at this time. Will continue to follow patientas able. * Communication - Shiv Cespedes, - 04/25/2024 12:23 PM EDT Images from the original note were not included. [address] [place] [address] / Director: Julio Cesar Singh M.D. Clinical Laboratory Report Name: MICHAEL KELLERJACKELIN Morrell Acct: [id number] [place]: [place] : 1970 [facility] [place] 04/18/24 Age: 54 Sex: F Dis Date: 04/20/24 Loc: ED Inpatient Rm/Bed: [facility] 1-7 Spec: [id number] Collected: 04/20/24 Received: 04/20/[address]: Christiano Loomis, D.O. Copy To: Catrachito Campbell MD Source: Blood OV Order: Ordered: Blood Culture Comments: Critical results sent via [employer] to Ashley Roper and Charly Rodriguez On 04/21/24 at 2341 by Chela Barajas. Confirmed message was read by recipient. Procedure Result Verified Site Blood Culture Aerobic Preliminary 04/23/24-0847 Organism 1 Staphylococcus aureus Sens Sensitivities to Follow Blood Culture PCR Panel If viewing in EMR, results available under LAB Serology tab. S aureus RX M.I.C. --- --------- Clindamycin S <=0.5 Daptomycin S <=0.5 Erythromycin S <=0.5 Oxacillin S <=0.25 Tetracycline S <=4 Trimeth/Sulfa S <=0.5/9.5 Vancomycin S 1 S = SENSITIVE I = INTERMEDIATE R = RESISTANT Blood Culture Anaerobic Final 04/25/24-1132 No growth in Anaerobic bottle after 5 days. Name: MICHAEL KELLERJACKELIN Morrell : 1970 PAGE 1 Printed: 04/25/24 1223 END OF REPORT [address] [place] [address] / Director: Julio Cesar Singh M.D. Clinical Laboratory Report Name: YAKOV KELLER Acct: [id number] Status: DIS IN : 1970 Svc Date: 04/18/24 Age: 54 Sex: F Dis Date: 04/20/24 Loc: ED Inpatient Rm/Bed: [facility] 1-7 Spec: [id number] Collected: 04/18/24-1455 Received: 04/18/24-[address]: Alejandro Rae M.D. Source: Blood OV Order: Ordered: Blood Culture Comments: Blood culture drawn venously from Right Arm. Procedure Result Verified Site Blood Culture Aerobic Final 04/24/24-1313 Organism 1 Staphylococcus aureus Sens No Sensitivities to Follow Please see culture number [id number] for sensitivities. Critical results sent via [email or web address] to DILLON MOISE On 04/19/24 at 0544 by Fan Dobson. Confirmed message was read by recipient. Blood Culture Anaerobic Final 04/24/24-1313 Organism 1 Staphylococcus aureus Sens No Sensitivities to Follow Please see culture number [id number] for sensitivities. Name: YAKOV KELLER : 1970 PAGE 1 Printed: 04/25/24 1223 [place] [address] / Director: Julio Cesar Singh M.D. Clinical Laboratory Report Name: YAKOV KELLER Acct: [id number] Status: DIS IN : 1970 Sv Date: 04/18/24 Age: 54 Sex: F Dis Date: 04/20/24 Loc: ED Inpatient Rm/Bed: [facility] 1-7 Spec: [id number] Collected: 04/18/24-1202 Received: 04/18/24-[address]: Alejandro Rae M.D. Source: Blood OV Order: Ordered: Blood Culture Procedure Result Verified Site Blood Culture Aerobic Final 04/24/24-1312 Organism 1 Staphylococcus aureus Sens Sensitivities to Follow Blood Culture PCR Panel If viewing in EMR, results available under LAB Serology tab. Critical results sent via [email or web address] to DILLON MOISE On 04/19/24 at 0545 by Fan Dobson. Confirmed message was read by recipient. S aureus RX M.I.C. --- --------- Clindamycin S <=0.5 Daptomycin S <=0.5 Erythromycin S <=0.5 Oxacillin S <=0.25 Tetracycline S <=4 Trimeth/Sulfa S <=0.5/9.5 Vancomycin S 1 S = SENSITIVE I = INTERMEDIATE R = RESISTANT Blood Culture Anaerobic Final 04/24/24-1312 Organism 1 Staphylococcus aureus Sens Sensitivities to Follow Name: YAKOV KELLER : 1970 PAGE 1 Printed: 04/25/24 1223 END OF REPORT * Progress Notes - Non-Billable - Shiv Cespedes DO - 04/25/2024 11:45 AM EDT Images from the original note were not included. DISCHARGE PROGRESS NOTE - Infectious Disease CLINICAL TEAM: Infectious Diseases Team 2 [facility] [address] Name: Yakov Keller Location: [facility] Date: 04/25/2024 Time: 11:45 AM History of present illness The patient was admitted as a transfer from [facility] on 04/20/2024 for constipation. Workup revealed thoracic level OM/paravertebral abscess. The patient reported no actual back pain, just constipation. She reported that she had been scratching an area of her upper back prior to admission but is not aware of any other portals of entry. She denied any indwelling FBs. Patient's current status The patient underwent surgery on 04/22. OR cultures are NGTD . BCX from 04/23 are NGTD. RJ is pending. FINAL IMPRESSION AND RECOMMENDATIONS: The plan is tentative. It may need to change based on culture results. Contact ID if any new organisms grow (and/or when susceptibilities are available) so that we can update the plan if needed. If RJ is positive, consult Cardiac Surgery and notify ID. If there is concern for a GERMAN TUTOR infection, use Nafcillin instead of cefazolin. Syndrome SEA with bacteremia Microbiology Staphylococcus aureus (MSSA) Antibiotic Cefazolin 2 g IV Q8 hours (adjust for renal function) End Date 06/18/2024* Vascular access: Do not remove PICC line until the infectious disease physician approves Recommended followup imaging studies: MRI spine with IV contrast LABORATORY MONITORING: Lab Test Frequency End Date CBC with diff CMP CRP Q week 06/18/2024* PROVIDERS: Following ID Physician ID clinic follow-up date Shiv Cespedes 6 weeks *The actual end date is to be determined. I have provided a tentative end date but we will need to monitor the patient's clinical status/labs (and, if applicable, imaging) before deciding to stop antimicrobials. You need to copy me on the labs or I will not get them. ID is signing off. Contact us PRN for any new issues. If any testing finalizes after ID signs off, you must notify us (ID is not automatically notified about any inpatient testing results). THIS SECTION IS FOR INFECTIOUS DISEASE USE What are the relevant dosing parameters? Body mass index is 29.94 kg/m. Serum creatinine: 0.5 mg/dL 04/25/24 0634 Estimated creatinine clearance: 118.6 mL/min Dialysis: no mention of LOCK ASSEMBLER in the EMR RPH: NA HCG: NA QTc: NA What is the most relevant micro data? Are there any antibiotic allergies? No Is PO suppression indicated? No (no HW per Dr. Montero from Neurosurgery) Are any adjunctive meds (eg RIF) indicated? No (no HW per Dr. Montero from Neurosurgery) When was the testing ordered? 12:19 PM 04/25/2024 When was the ID clinic notified? 11:57 AM 04/25/2024 When was the return appt ordered? 11:57 AM 04/25/2024 * Ancillary Progress Note - Johanny Doss RN - 04/25/2024 11:36 AM EDT CARE MANAGEMENT - ADULT TRANSITION NOTE [address] [address] Name: Yakov Keller Location[place] [facility] Date: 04/25/2024 Time: 11:37 AM Risk Stratification Risk Stratification Psycho Social / Medical Concerns Identified: Adjustment to illness/injury (04/23/24 1207) Readmission Risk Score: 10.86 (04/25/24 0800) AM-PAC Score With Stairs : 12 (04/24/24 0000) Caregiver Information Patient Contacts Name Relation Home Work Mobile Mariangel Sullivan Friend [phone] Maya Bruce Sibling [phone] Margi Menezes Friend [phone] Transition of Care Checklist Narrative: CM has been following Marlene's hospital course. Discussed in IDT rounds. Marlene is not currently medically stable for discharge. Marlene is scheduled for RJ today. Has 3 KRISTAL drains to full suction. ID rec's pending. Referral sent Yulia Hansen notified. Currently min assist. CM will continue to follow for additional discharge needs/plans. Anticipated Transportation at Discharge: josefina Patient/Family Expectations: IRF Transition Planning Additional Considerations: MA pending Care Management will continue to monitor and assist with discharge planning needs * Progress Notes - Post-Op Angely - Sharona Hill DO - 04/25/2024 7:52 AM EDT NEUROLOGICAL SURGERY PROGRESS NOTE [address] [address] Name: Yakov Keller Location: [facility] Date: 04/25/2024 Time: 7:52 AM Hospital day number: 5 SUBJECTIVE: Peralta is placed for urinary retention. Possible RJ today. OBJECTIVE: Most recent vital signs: BP: 133 mmHg/79 mmHg (04/25/24712) Pulse: 102 (04/25/24712) Resp: 16 (04/25/24712) Temp: 37 C (04/25/24712) Temp Summary: Temp Min: 36.6 C (97.8 F) Max: 38 C (100.4 F) SpO2: 97 % (04/25/24712) O2 flow rate: 0 L/MIN (04/25/24712) Supplemental O2 Delivery: Room Air, None (04/25/24712) Vital signs over last 24 hours: Systolic BP: Most Recent Systolic BP Av.8 mmHg Min: 131 mmHg Max: 158 mmHg Temperature: Most Recent Temperature Av.4 C Min: 36.56 C Max: 38 C Pulse: Pulse Avg: Pulse Av.2 Min: 94 Max: 112 Respirations: Resp Av.7 Min: 16 Max: 18 SpO2: SpO2 Av.3 % Min: 96 % Max: 99 % SpO2: SpO2 Av.3 % Min: 96 % Max: 99 % FiO2%: No data recorded ICP: No data found.CPP (adult): No data found.Intake Vent Settings: Input/Output: (last 24 hours) Intake/Output Summary (Last 24 hours) at 04/25/2024 0752 Last data filed at 04/25/2024 0600 Gross per 24 hour Intake 1626.67 ml Output 2925 ml Net -1298.33 ml Wound care: Surgical Site: clean, dry, intact Drains: KRISTAL x2 (KRISTAL 04/24) Physical exam: Alert Comfortable Follows commands in all 4 extremities with resistance power Peralta in place Labs: Reviewed Imaging studies: My interpretation of: No new images Problem list: Patient Active Problem List Diagnosis Bacteremia due to Staphylococcus Spondylosis of thoracic region without myelopathy or radiculopathy Constipation Epidural abscess Acute osteomyelitis (HCC) Acute hypoxemic respiratory failure (HCC) Status post laminectomy CLINICAL HISTORY AND PLAN: 54 year old female patient with holo spinal ventral epidural abscess now status post C3 to T1 and T7-T11 laminectomies for decompression and washout of epidural abscess by Dr. Montero on 04/22/2024 KRISTAL drains to full self suction Broad empiric antibiotic per ID/medicine Will follow intraoperative cultures Advance diet as tolerated No blood pressure goals Head of the bed as tolerated Activity ad paras Okay for chemical VTE prophylaxis Case discussed with attending physician. Sharona Hill DO Neurosurgery PGY1 * Care Plan - Nicholas Galvez RN - 04/25/2024 6:34 AM EDT Clinical Goal(s): Patient will remain free of injury all shift (04/24/24 2300) Possible barriers to meeting goal(s)/advancing plan of care: Recent surgery, limited mobility Stability of the patient: Moderately stable - low risk of patient condition declining or worsening Summary regarding today's goal(s): Met: Recommendations: Purposeful hourly rounding * Care Plan - Luna Aguilar RN - 04/24/2024 10:50 AM EDT Clinical Goal(s): Pt will remain free from fall on shift (04/24/24 0700) Possible barriers to meeting goal(s)/advancing plan of care: Mobility, Antibiotics Stability of the patient: Moderately stable - low risk of patient condition declining or worsening Summary regarding today's goal(s): Not Met: Recommendations: OOB and continue purposeful rounding * Progress Notes - Post-Op Angely - David Russo MD - 04/24/2024 8:06 AM EDT NEUROLOGICAL SURGERY PROGRESS [place] [facility] [address] Name: Yakov Keller Location[place] [facility] [place] Date: 04/24/2024 Time: 8:06 AM Hospital day number: 4 SUBJECTIVE: BRENTON OBJECTIVE: Most recent vital signs: BP: 146 mmHg/84 mmHg (04/24/24 06) Pulse: 108 (04/24/24 06) Resp: 18 (04/24/24599) Temp: 38.28 C (04/24/24 06) Temp Summary: Temp Min: 36 C (96.8 F) Max: 38.3 C (100.9 F) SpO2: 95 % (04/24/24 0600) O2 flow rate: 0 L/MIN (04/23/24 1823) Supplemental O2 Delivery: Room Air, None (04/24/24 0539) Vital signs over last 24 hours: Systolic BP: Most Recent Systolic BP Av.7 mmHg Min: 104 mmHg Max: 167 mmHg Temperature: Most Recent Temperature Av.1 C Min: 36 C Max: 38.28 C Pulse: Pulse Avg: Pulse Av.9 Min: 93 Max: 122 Respirations: Resp Av Min: 14 Max: 24 SpO2: SpO2 Av.8 % Min: 92 % Max: 99 % SpO2: SpO2 Av.8 % Min: 92 % Max: 99 % FiO2%: No data recorded ICP: No data found.CPP (adult): No data found.Intake Vent Settings: Input/Output: (last 24 hours) Intake/Output Summary (Last 24 hours) at 04/24/2024 0806 Last data filed at 04/24/2024 0705 Gross per 24 hour Intake 1404.77 ml Output 1330 ml Net 74.77 ml Wound care: Surgical Site: clean, dry, intact Drains: KRISTAL x3 Physical exam: Alert Comfortable Follows commands in all 4 extremities with resistance power Labs: Reviewed Imaging studies: My interpretation of: No new images Problem list: Patient Active Problem List Diagnosis Bacteremia due to Staphylococcus Spondylosis of thoracic region without myelopathy or radiculopathy Constipation Epidural abscess Acute osteomyelitis (HCC) Acute hypoxemic respiratory failure (HCC) CLINICAL HISTORY AND PLAN: 54 year old female patient with holo spinal ventral epidural abscess now status post C3 to T1 and T7-T11 laminectomies for decompression and washout of epidural abscess by Dr. 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 Please check the phonebook for the neurosurgery first call for any additional questions. Case discussed with attending physician. Associated attestation - Bhanu Montero MD - 04/24/2024 10:36 AM EDT I saw and evaluated the patient today. I have reviewed the resident/fellow physician note and agree. Patient doing very well postoperatively. It seems her nuchal rigidity has resolved. Multiple bowel movements. Legs and upper extremities otherwise feel fine. Full strength. Continue current management. Drain output is not clearly purulent but is more serous looking, we did not see CSF intraoperatively, suspect it is the material from the epidural space. Continue drains for now. PT and OT. DVT prophylaxis. All questions answered. Bhanu Montero [facility] Neurosurgery This document was dictated using voice recognition software. Please excuse any errors. * Care Plan - Nicholas Galvez RN - 04/24/2024 6:00 AM EDT Clinical Goal(s): Pt will have adequate pain control during shift (04/24/24 0000) Possible barriers to meeting goal(s)/advancing plan of care: Recent surgery Stability of the patient: Moderately unstable - medium risk of patient condition declining or worsening Summary regarding today's goal(s): Met: Recommendations: Hourly rounding, continue plan of care * Ancillary Progress Note - Anila Leal MSW - 04/23/2024 12:08 PM EDT CARE MANAGEMENT - ADULT INITIAL SCREENING [address] [address] Name: Yakov Keller [place] [facility] [place] Date: 04/23/2024 Time: 12:09 PM Discussed patient with the interdisciplinary care team. This Saute Chef performed a chart review and met with patient and patient's friend-Mariangel at bedside to complete admission screen and assessed needs for transition planning. The personal care aid role and services were explained and emotional support was provided. Chief Complaint: No chief complaint on file. Prior Living Arrangements What was your living situation prior to admission/observation?: Independently;Alone (04/23/24 1207) Living Quarters: House (04/23/241206) Number of steps to enter living quarters:: 12 (04/23/241206) Do you have serious difficulty walking or climbing stairs? (5 years old or older): No (04/22/242250) History of falling: No (04/23/24799) Prior Level of Functioning Describe the patient's ability prior to admission/observation to perform ADLs: Performs independently (04/23/241206) Describe the patient's mobility status prior to admission: Patient ambulates independently (04/23/241206) Patient uses assistive device: No (04/23/241206) Caregiver Information Patient Contacts Name Relation Home Work Mobile Mariangel Sullivan Friend [phone] Maya Bruce Sibling [phone] MenezesMargi Friend [phone] Risk Stratification/Psychosocial/Care Gaps Risk Stratification Psycho Social / Medical Concerns Identified: Adjustment to illness/injury (04/23/241206) Readmission Risk Score: 12.63 (04/23/241200) AM-PAC Score With Stairs : 10 (04/23/24 08) Prior to Admission Services Services Prior to Admission SENIOR DOT NET DEVELOPER Services (Services received within the last 30 days with exception, Psych within last two years): N/A (04/23/241206) [place] Dept. of Aging (PDA) Waiver Program: N/A (04/23/241206) SENIOR DOT NET DEVELOPER Transportation (Services received within the last 30 days): Family/Friends Personal Vehicle;Patient drives self (04/23/241206) Outpatient Saute Chef: No care steam table attendant to display Patient/Family Expectations: Prior to admission, patient lived alone in a basement apartment with approximately 12 MAYRA. Patient was independent with ADLs and ambulation, no DME use, HH services or SNF/IRF stays. 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 Per patient's friend Mariangel, patient does not have a PCP but she is in the process of searching for one. Patient and Mariangel both report possible need for rehab once medically ready for discharge. They both express preference for referral to [facility]. CM to complete referral once appropriate and oncePT/OT is able to work with patient. For further screening information, please refer to the Care Management flow document. * Progress Notes - Post-Op Angely - David Russo MD - 04/23/2024 8:08 AM EDT NEUROLOGICAL SURGERY PROGRESS NOTE [facility] [phone] Name: Yakov Keller Location: [facility] [place] Date: 04/23/2024 Time: 8:08 AM Hospital day number: 3 SUBJECTIVE: BRENTON OBJECTIVE: Most recent vital signs: BP: 100 mmHg/90 mmHg (04/23/24699) Pulse: 93 (04/23/24699) Resp: 25 (04/23/24699) Temp: 36.11 C (04/23/24599) Temp Summary: Temp Min: 36.1 C (97 F) Max: 38.2 C (100.8 F) SpO2: 93 % (04/23/24699) O2 flow rate: 2 L/MIN (04/23/24 0000) Supplemental O2 Delivery: Room Air, None (04/23/24699) Vital signs over last 24 hours: Systolic BP: Most Recent Systolic BP Av.3 mmHg Min: 100 mmHg Max: 157 mmHg Temperature: Most Recent Temperature Av.7 C Min: 36.11 C Max: 38.22 C Pulse: Pulse Avg: Pulse Av.7 Min: 89 Max: 111 Respirations: Resp Av.7 Min: 12 Max: 28 SpO2: SpO2 Av.6 % Min: 90 % Max: 100 % SpO2: SpO2 Av.6 % Min: 90 % Max: 100 % FiO2%: No data recorded ICP: No data found.CPP (adult): No data found.Intake Vent Settings: Input/Output: (last 24 hours) Intake/Output Summary (Last 24 hours) at 04/23/2024 0808 Last data filed at 04/23/2024 0600 Gross per 24 hour Intake 2934.82 ml Output 1775 ml Net 1159.82 ml Wound care: Surgical Site: clean, dry, intact Drains: KRISTAL x3 Physical exam: Alert Comfortable Follows commands in all 4 extremities with resistance power Labs: Reviewed Imaging studies: My interpretation of: No new images Problem list: Patient Active Problem List Diagnosis Bacteremia due to Staphylococcus Spondylosis of thoracic region without myelopathy or radiculopathy Constipation Epidural abscess Acute osteomyelitis (HCC) Acute hypoxemic respiratory failure (HCC) CLINICAL HISTORY AND PLAN: 54 year old female patient with holo spinal ventral epidural abscess now status post C3 to T1 and T7-T11 laminectomies for decompression and washout of epidural abscess by Dr. Montero on 04/22/2024 Neuro ICU Close neuro monitoring KRISTAL drains to full self suction Broad empiric antibiotic Will follow intraoperative cultures Advance diet as tolerated No blood pressure goals Head of the bed as tolerated Activity ad paras Okay for chemical VTE prophylaxis today at 10:00 p.m. The author of this note may not be who is cable installation technician at this time. Please check the phonebook for the neurosurgery first call for any additional questions. Case discussed with attending physician. Associated attestation - Bhanu Montero MD - 04/23/2024 1:28 PM EDT I saw and evaluated the patient today. I have reviewed the resident/fellow physician note and agree. Patient looks very good today, says she feels better, she was able to have a bowel movement and is feeling less constipated as well. Strength is full and she has no new neurologic deficits. Cultures pending. Drains in place. Continue current management. I think she would be transferred to the regular dobbs today. PT and OT. Appreciate ID input and follow cultures. I did answer all of her questions this morning. Bhanu Montero [facility] Neurosurgery This document was dictated using voice recognition software. Please excuse any errors. * Ancillary Progress Note - Marilee Bryant RRT-BOX COVERING MACHINE OPERATOR - 04/23/2024 2:28 AM EDT PATIENT DRIVEN PROTOCOL - Respiratory Care Services [address] [address] Name: Yakov Keller [place] [facility] [place] Date: 04/23/2024 Time: 2:28 AM Patient Driven Protocol Summary: Initial evaluation performed. This Treatment Plan and medications will be reviewed by the Primary Care Team for any contraindications. Respiratory Care Treatment Plan Pulmonary Volume Expansion Therapy: Incentive Spirometry PRN to prevent or treat alveolar consolidation and atelectasis. . Secretion Management Treatment: Flutter TherapyPRN to enhance mobilization of secretions. . The patient will be re-evaluated: No re-evaluation needed. Indications for treatment met. The Triage Level is: (Assessment Score = 6 -10) Level 4. Triage Level Definitions: Level 1 Severe Respiratory/Airway Compromise Level 2 Moderate Respiratory/Airway Compromise or high risk for pulmonary complications Level 3 Mild Respiratory/Airway Compromise or moderate risk for pulmonary complications Level 4 Episodic Respiratory/Airway Compromise or low risk for pulmonary complications Level 5 No Respiratory/Airway Compromise Triage 1 Triage 2 Triage 3 Triage 4 Triage 5 greater than 20 16 - 20 11 - 15 6 - 10 0 - 5 Medical Record Assessment Clinical Findings Pulmonary Status: 0 - No History Surgical Status: 1 - General Surgery Chest X-Ray: 2 - Infiltrates and/or Atelectasis Assessment Score: 3 Patient Assessment Clinical Findings Respiratory Pattern: 0 - RR 12 - 20; Patient only gets breathless with strenuous exercise. Breath Sounds: 0 - Clear to auscultation Cough Effectiveness: 0 - Strong non-productive Sputum Production: 0 - No sputum production Level of Activity: 2 - Temporarily non-ambulatory O2 needed to keep SpO2 greater than or equal to 92%: 1 - Oxygen 1-3 LPM or FiO2 less than 35% Assessment Score: 3 Total Assessment Score: 6 Breath Sounds: Inspiratory and expiratory clear bilaterally.. Cough and Sputum: An effective cough produced no sputum... CXR: . IMPRESSION Tiny right pleural effusion with right basilar atelectasis. No discernible left- sided pleural effusion is seen on this examination. Vital Signs: Resp: 21 (04/23/24199) Pulse: 94 (04/23/24199) Temp: 36.6 C (97.9 F) (04/23/24199) BP: 156/88 (04/22/24 1418) SpO2: 90 % (04/23/24199) PFT: Minimal Predicted IC: 0.711 L. Inspiratory capacity: 1.75 L. Primary Service: Critical Care Blue. Admitting Diagnosis: Discitis [M46.40] Osteomyelitis (HCC) [M86.9] Osteomyelitis of thoracic spine (HCC) [M46.24] Pulmonary Diagnosis: Atelectasis. Prescriptions/Home Medications/Durable Medical Equipment: N/A. Recommended New home medications/durable medical equipment/outpatient pulmonary/sleep referral N/A. * Progress Notes - Post-Op Global - Maciel Herron MD - 04/22/2024 7:49 PM EDT NEUROLOGICAL SURGERY PROGRESS NOTE [facility] [address] Name: Yakov Keller Location: [facility] [place] Date: 04/22/2024 Time: 7:49 PM Hospital day number: 2 SUBJECTIVE: No immediate post op issues OBJECTIVE: Most recent vital signs: BP: 117 mmHg/73 mmHg (04/22/241903) Pulse: 110 (04/22/241903) Resp: 23 (04/22/241903) Temp: 36.5 C (04/22/241903) Temp Summary: Temp Min: 36.5 C (97.7 F) Max: 38.3 C (100.9 F) SpO2: 99 % (04/22/241903) O2 flow rate: 0 L/MIN (04/22/24813) Supplemental O2 Delivery: Room Air, None (04/22/241903) Vital signs over last 24 hours: Systolic BP: Most Recent Systolic BP Av.7 mmHg Min: 117 mmHg Max: 157 mmHg Temperature: Most Recent Temperature Av.4 C Min: 36.5 C Max: 38.28 C Pulse: Pulse Avg: Pulse Av.8 Min: 89 Max: 110 Respirations: Resp Av.8 Min: 12 Max: 24 SpO2: SpO2 Av.2 % Min: 94 % Max: 100 % SpO2: SpO2 Av.2 % Min: 94 % Max: 100 % FiO2%: No data recorded ICP: No data found.CPP (adult): No data found.Intake Vent Settings: Input/Output: (last 24 hours) Intake/Output Summary (Last 24 hours) at 04/22/20249 Last data filed at 04/22/2024 1904 Gross per 24 hour Intake 2318.31 ml Output 1860 ml Net 458.31 ml Wound care: Surgical Site: clean, dry, intact Drains: KRISTAL x3 Physical exam: Alert Comfortable Waking up from anesthesia Follows commands in all 4 extremities with resistance power Labs: Reviewed Imaging studies: My interpretation of: No new images Problem list: Patient Active Problem List Diagnosis Bacteremia due to Staphylococcus Spondylosis of thoracic region without myelopathy or radiculopathy Constipation Epidural abscess Acute osteomyelitis (HCC) CLINICAL HISTORY AND PLAN: 54 year old female patient with holo spinal ventral epidural abscess now status post C3 to T1 and T7-T11 laminectomies for decompression and washout of epidural abscess by Dr. Montero on 04/22/2024 Neuro ICU Close neuro monitoring KRISTAL drains to full self suction Broad empiric antibiotic Will follow intraoperative cultures Advance diet as tolerated No blood pressure goals Head of the bed as tolerated Activity ad paras Okay for chemical VTE prophylaxis tomorrow at 10:00 p.m. Case discussed with Dr. Montero. Maciel Herron MD Resident Neurological Surgery * Progress Notes - Post-Op Global - Bhanu Montero MD - 04/22/2024 7:22 PM EDT Patient looking good immediately postoperatively, awake and alert, moving everything with good strength, no new obvious neurologic deficit. Continue current management in the ICU. Q.1h checks for now. Low threshold to broaden the antibiotic therapy unless we have a clear organism from the blood. I did discuss this at bedside with the ICU team. I did answer all the patient's questions. Bhanu Oliva Neurosurgery This document was dictated using voice recognition software. Please excuse any errors. * Care Plan - Salinas Pierre RN - 04/22/2024 3:46 AM EDT Clinical Goal(s): pt will have tolerable pain level this shift (04/21/24 2333) Possible barriers to meeting goal(s)/advancing plan of care: communication difficulties Stability of the patient: Moderately unstable - medium risk of patient condition declining or worsening Summary regarding today's goal(s): Met: patient have too much word salad that it's very difficult to fully understand what the patientintends to say most of the time; patient however does not attempt to get out of bed; patient appeared to sleep well without obvious signs of pain or distress; vitals stable Recommendations: continue to monitor/manage pain * Care Plan - Cassie Mcintosh RN - 04/21/2024 3:20 PM EDT Clinical Goal(s): Patient will remain free from falls (04/21/24 0700) Possible barriers to meeting goal(s)/advancing plan of care: Weakness Stability of the patient: Moderately stable - low risk of patient condition declining or worsening Summary regarding today's goal(s): Met: Patient had no falls this shift Recommendations: Purposeful hourly rounding * Ancillary Progress Note - Tiffany Genao RN - 04/21/2024 10:55 AM EDT CARE MANAGEMENT - ADULT TRANSITION NOTE [facility] [phone] Name: Yakov Keller Location: [facility] [place] Date: 04/21/2024 Time: 10:55 AM Risk Stratification Readmission Risk Score: 7.41 (04/21/24 08) AM-PAC Score With Stairs : 15 (04/21/24799) Caregiver Information Patient Contacts None on File Transition of Care Checklist Narrative: Discussed patient at IDT. Patient admitted with bacteremia and epidural abscess. Currently receiving IV vanco pending cultures. ID consult pending. Ortho following recommending IR biopsy and MRI. Not medically stable for discharge today. Patient currently lives at home. Plans to return to the same. PT/OT consults pending as well. Of note, patient with no insurance, MA pending per admitting documentation. Full CM assessment not indicated at this time. CM continue to follow for evolving needs. Anticipated Transportation at Discharge: family Patient/Family Expectations: return home Transition Planning Care Management will continue to monitor and assist with discharge planning needs * Care Plan - Cassie Handy RN - 04/21/2024 6:06 AM EDT Clinical Goal(s): Pt will remain free from falls (04/20/24 1900) Possible barriers to meeting goal(s)/advancing plan of care: weakness Stability of the patient: Moderately stable - low risk of patient condition declining or worsening Summary regarding today's goal(s): Met: pt remained free from falls Recommendations: fall precautions, hourly rounding, pain mgmt * Respiratory Progress Note - Tasha Rboertson RRT - 04/20/2024 8:55 PM EDT Pt assessed per PDP. No modalities need at this time. documented in this encounter Plan of Treatment Upcoming Encounters Date Type Department Care Team (Late st Contact Info) Description 06/02/2024 11:20 AM EDT Office Visit Infectious Disease, Standard [address] [place] [address] Shiv Cespedes DO [address] [place] [address] Pending Results Name Type Priority Associated Diagnoses Date /Time CULTURE, AFB Lab STAT Spinal abscess (HCC) 04/22/2024 5:51 PM EDT CULTURE, AFB Lab STAT Spinal abscess (HCC) 04/22/2024 6:04 PM EDT Scheduled Orders Name Type Priority Associated Diagnoses Orde r Schedule XR CHEST 1 VIEW Medical Imaging STAT Perf orm Now for 1 Occurrences starting 04/26/2024 until 04/26/2024 CBC WITH WBC DIFFERENTIAL Lab Routine Bacteremia due to Staphylococcus Every Week for 7 Occurrences starting 04/28/2024 until 06/18/2024 COMPREHENSIVE METABOLIC PANEL Lab Routine Bacteremia due to Staphylococcus Every Week for 7 Occurrences starting 04/28/2024 until 06/18/2024 CRP (INFLAMMATORY MARKER) Lab Routine Bacteremia due to Staphylococcus Every Week for 7 Occurrences starting 04/28/2024 until 06/18/2024 MRI C SPINE W WO CONTRAST Medical Imaging Routine Status post laminectomy Acute osteomyelitis (HCC) Epidural abscess Expected: 06/26/2024 (Approximate), Expires: 07/25/2024 MRI L SPINE W WO CONTRAST Medical Imaging Routine Status post laminectomy Acute osteomyelitis (HCC) Epidural abscess Expected: 06/26/2024 (Approximate), Expires: 05/25/2025 MRI T SPINE W WO CONTRAST Medical Imaging Routine Status post laminectomy Acute osteomyelitis (HCC) Epidural abscess Expected: 06/26/2024 (Approximate), Expires: 07/25/2024 Scheduled Referrals Name Type Priority Associated Diagnoses Orde r Schedule ADULT/PEDS UROLOGY REFERRAL OP Referral Within 10 days (routine) Urinary retention Ordered: 04/29/2024 ADULT/PEDS PSYCHIATRY REFERRAL OP Referral Within 10 days (routine) Adjustment disorder, unspecified type Ordered: 05/10/2024 Health Maintenance Due Date Last Done Comments [...] this encounter Medical Devices Implanted Type Area Professor Of Vegetable Science Device Identifier Shelf Expiration Date Model / Serial / Lot Cath Pwr Picc Solo Inj 4f - [id number] Implanted:Qty : 1 on 05/01/2024 at [facility] CR BARD : [employer]ESS SYSTEM[employer] [id number] 08/22/2025 [id number] / / [id number] Cath Cv Lumen Single 5fr - [id number] Implanted:Qty : 1 on 05/06/2024 at [facility] Right: Chest [employer] : PERIPHERAL VASCULAR [id number] 07/22/2027 [id number] / / [id number] documented as of this encounter Procedures Procedure Name Priority Date/Time Associated Diagnosis Comments BASIC METABOLIC PANEL Routine 05/31/2024 6:07 AM EDT CBC Routine 05/31/2024 6:07 AM EDT BASIC METABOLIC PANEL Routine 05/29/2024 7:25 AM EDT CBC Routine 05/29/2024 7:25 AM EDT BASIC METABOLIC PANEL Routine 05/26/2024 7:09 AM EDT CBC Routine 05/26/2024 7:09 AM EDT BASIC METABOLIC PANEL Routine 05/24/2024 6:43 AM EDT CBC Routine 05/24/2024 6:43 AM EDT BASIC METABOLIC PANEL Routine 05/22/2024 5:56 AM EDT CBC Routine 05/22/2024 5:56 AM EDT BASIC METABOLIC PANEL Routine 05/19/2024 6:33 AM EDT CBC Routine 05/19/2024 6:33 AM EDT BASIC METABOLIC PANEL Routine 05/17/2024 5:39 AM EDT CBC Routine 05/17/2024 5:39 AM EDT BASIC METABOLIC PANEL Routine 05/15/2024 7:13 AM EDT CBC Routine 05/15/2024 7:13 AM EDT BASIC METABOLIC PANEL Routine 05/12/2024 6:01 AM EDT CBC Routine 05/12/2024 6:01 AM EDT BASIC METABOLIC PANEL Routine 05/10/2024 5:57 AM EDT CBC Routine 05/10/2024 5:57 AM EDT BASIC METABOLIC PANEL Routine 05/08/2024 7:07 AM EDT CBC Routine 05/08/2024 7:07 AM EDT IR VENOUS ACCESS NON-MEDIPORT Routine 05/06/2024 1:41 PM EDT ANE GHS CENTRAL LINE Routine 05/06/2024 1:28 PM EDT CBC Routine 05/05/2024 9:35 AM EDT BASIC METABOLIC PANEL Routine 05/05/2024 7:55 AM EDT BLOOD GAS, VENOUS Routine 05/03/2024 8:1 6 PM EDT COMPREHENSIVE METABOLIC PANEL Routine 05/03/2024 8:16 PM EDT PHOSPHORUS Routine 05/03/2024 8:16 PM EDT LACTATE Routine 05/03/2024 8:16 PM EDT CBC Routine 05/03/2024 8:16 PM EDT MAGNESIUM Routine 05/03/2024 8:16 PM EDT XR CHEST 1 VIEW STAT 05/02/2024 6:49 PM EDT Status post laminectomy XR CHEST 1 VIEW Routine 05/01/2024 4:00 PM EDT Encounter for adjustment and management of vascular access device IR VENOUS ACCESS NON-MEDIPORT Routine 05/01/2024 11:33 AM EDT ANE GHS CENTRAL LINE Routine 05/01/2024 11:28 AM EDT Epidural abscess CALCIUM, IONIZED STAT 04/30/2024 7:36 AM EDT HEPATIC FUNCTION PANEL Routine 6:39 AM EDT BASIC METABOLIC PANEL Routine 04/29/2024 6:39 AM EDT PHOSPHORUS Routine 04/29/2024 6:39 AM EDT CALCIUM, IONIZED STAT 04/29/2024 6:39 AM EDT CBC Routine 04/29/2024 6:39 AM EDT MAGNESIUM Routine 04/29/2024 6:39 AM EDT HEPATIC FUNCTION PANEL Routine 7:24 AM EDT BASIC METABOLIC PANEL Routine 04/28/2024 7:24 AM EDT PHOSPHORUS Routine 04/28/2024 7:24 AM EDT CALCIUM, IONIZED STAT 04/28/2024 7:24 AM EDT CBC Routine 04/28/2024 7:24 AM EDT MAGNESIUM Routine 04/28/2024 7:[address] CHEST WO CONTRAST Routine 04/27/2024 8:02 AM EDT Pleural effusion, not elsewhere classified Other specified symptoms and signs involving the circulatory and respiratory systems Status post laminectomy HEPATIC FUNCTION PANEL Routine 7:33 AM EDT BASIC METABOLIC PANEL Routine 04/27/2024 7:33 AM EDT PHOSPHORUS Routine 04/27/2024 7:33 AM EDT CALCIUM, IONIZED STAT 04/27/2024 7:33 AM EDT CBC Routine 04/27/2024 7:33 AM EDT MAGNESIUM Routine 04/27/2024 7:33 AM EDT VANCOMYCIN RANDOM Timed 04/26/2024 9:1 6 AM EDT HEPATIC FUNCTION PANEL Routine 9:16 AM EDT BASIC METABOLIC PANEL Routine 04/26/2024 9:16 AM EDT PHOSPHORUS Routine 04/26/2024 9:16 AM EDT CALCIUM, IONIZED STAT 04/26/2024 9:16 AM EDT CBC Routine 04/26/2024 9:16 AM EDT MAGNESIUM Routine 04/26/2024 9:16 AM EDT US ABDOMEN LIMITED Routine 04/26/2024 8: 48 AM EDT Other specified diseases of gallbladder Other ascites Abnormal results of liver function studies TRANSESOPHAGEAL ECHO (COMPLETE) STAT 04/25/2024 5:12 PM EDT Endocarditis URINALYSIS, REFLEX TO CULTURE STAT 04/25/2024 12:46 PM EDT URINALYSIS, REFLEX TO CULTURE (CUP ONLY) STAT 04/25/2024 12:46 PM EDT URINALYSIS, REFLEX TO CULTURE (NOT FOR NEUTROPENIC PATIENTS) STAT 04/25/2024 12:46 PM EDT HEPATIC FUNCTION PANEL Routine 4 6:34 AM EDT BASIC METABOLIC PANEL Routine 04/25/2024 6:34 AM EDT PHOSPHORUS Routine 04/25/2024 6:34 AM EDT CALCIUM, IONIZED STAT 04/25/2024 6:34 AM EDT CBC Routine 04/25/2024 6:34 AM EDT MAGNESIUM Routine 04/25/2024 6:34 AM EDT PHOSPHORUS Routine 04/24/2024 12:37 PM EDT VANCOMYCIN PEAK Timed 04/24/2024 3:48 AM EDT HEPATIC FUNCTION PANEL Routine 4 3:48 AM EDT BASIC METABOLIC PANEL Routine 04/24/2024 3:48 AM EDT PHOSPHORUS Routine 04/24/2024 3:48 AM EDT CALCIUM, IONIZED STAT 04/24/2024 3:48 AM EDT CBC Routine 04/24/2024 3:48 AM EDT MAGNESIUM Routine 04/24/2024 3:48 AM EDT HC ECG TRACING ONLY STAT 04/23/2024 2 :27 PM EDT Tachycardia XR ABDOMEN 1 VIEW Routine 04/23/2024 9:5 4 AM EDT Abnormal findings on diagnostic imaging of other specified body structures Abdominal distension (gaseous) CULTURE, BLOOD STAT 04/23/2024 9:23 AM EDT CULTURE, BLOOD Routine 04/23/2024 9:21 AM EDT TSH WITH FREE T4 IF INDICATED Add-on 04/23/2024 5:31 AM EDT VANCOMYCIN RANDOM Add-on 04/23/2024 5:3 1 AM EDT HEPATIC FUNCTION PANEL Routine 5:31 AM EDT BASIC METABOLIC PANEL Routine 04/23/2024 5:31 AM EDT PHOSPHORUS Routine 04/23/2024 5:31 AM EDT CALCIUM, IONIZED STAT 04/23/2024 5:31 AM EDT CBC Routine 04/23/2024 5:31 AM EDT MAGNESIUM Routine 04/23/2024 5:31 AM EDT HEPATITIS C RNA ADD ON Routine 8:53 PM EDT HEPATITIS C ANTIBODY SCREEN WITH PROGRESSION TO HEPATITIS C RNA QUANTITATIVE Routine 04/22/2024 8:53 PM EDT HEPATITIS C ANTIBODY Routine 04/22/2024 8:53 PM EDT CALCIUM, IONIZED STAT 04/22/2024 7:43 PM EDT DIFFERENTIAL, AUTOMATED STAT 04/22/20 7:38 PM EDT HEPATITIS B SURFACE ANTIBODY Add-on 04/22/2024 7:38 PM EDT HIV ANTIGEN & ANTIBODY SCREEN W/ CONFIRMATION Add-on 04/22/2024 7:38 PM EDT ACUTE HEPATITIS PANEL STAT 04/22/2024 7:38 PM EDT BASIC METABOLIC PANEL STAT 04/22/2024 7:38 PM EDT HEPATITIS B CORE ANTIBODY IGM Add-on 04/22/2024 7:38 PM EDT HEPATITIS B CORE ANTIBODIES IGG AND IGM Add-on 04/22/2024 7:38 PM EDT HEPATITIS B SURFACE ANTIGEN Add-on 04/22/2024 7:38 PM EDT CBC STAT 04/22/2024 7:38 PM EDT CBC STAT 04/22/2024 7:38 PM EDT CULTURE, WOUND, DEEP, AEROBIC AND ANAEROBIC STAT 04/22/2024 6:04 PM EDT Spinal abscess (HCC) CULTURE, AFB STAT 04/22/2024 6:04 PM EDT Spinal abscess (HCC) CULTURE,FUNGUS,NON-DERM STAT 04/22/20 24 6:04 PM EDT Spinal abscess (HCC) CULTURE, WOUND, DEEP, AEROBIC AND ANAEROBIC STAT 04/22/2024 5:51 PM EDT Spinal abscess (HCC) CULTURE, AFB STAT 04/22/2024 5:51 PM EDT Spinal abscess (HCC) CULTURE,FUNGUS,NON-DERM STAT 04/22/20 24 5:51 PM EDT Spinal abscess (HCC) XR INTRA-OP C-ARM CASE Routine 5:47 PM EDT ABO/RH STAT 04/22/2024 2:45 PM EDT TYPE AND SCREEN STAT 04/22/2024 2:45 PM EDT Endo Decompress Spinal Cord w/Laminotomy, Cervical 04/22/2024 2:35 PM EDT Spinal abscess (HCC) Endo decompress spinal cord w/laminotomy, thoracic 04/22/2024 2:35 PM EDT Spinal abscess (HCC) REMOVE LUMBAR SPINE LAMINA, 3+ SEGS 04/22/2024 2:35 PM EDT Spinal abscess (HCC) MRI BRAIN W WO CONTRAST Routine 04/22/20 2:11 PM EDT Disorder of brain, unspecified CBC STAT 04/22/2024 12:10 PM EDT COMPREHENSIVE METABOLIC PANEL STAT 04/22/2024 12:09 PM EDT PT INR STAT 04/22/2024 12:09 PM EDT APTT Add-on 04/22/2024 12:09 PM EDT MRI T SPINE W WO CONTRAST STAT 04/22/2024 1:05 AM EDT MRI C SPINE W WO CONTRAST STAT 04/22/2024 1:05 AM EDT MRI L SPINE W WO CONTRAST STAT 04/22/2024 1:03 AM EDT ECHO, COMPLETE (2D), TRANS-THORACIC Routine 04/21/2024 10:32 AM EDT Bacteremia of undetermined etiology DIFFERENTIAL, AUTOMATED Routine 04/21/20 7:56 AM EDT CBC Routine 04/21/2024 7:56 AM EDT CBC Routine 04/21/2024 7:56 AM EDT DIFFERENTIAL, TECHNOLOGIST REVIEW Routine 04/21/2024 7:56 AM EDT CULTURE, BLOOD Routine 04/21/2024 7:55 AM EDT BLOOD CULTURE PCR IDENTIFICATION Routine 04/21/2024 7:49 AM EDT COMPREHENSIVE METABOLIC PANEL Routine 04/21/2024 7:49 AM EDT CULTURE, BLOOD Routine 04/21/2024 7:49 AM EDT MRSA SCREEN, PCR Routine 04/21/2024 12:2 9 AM EDT BASIC METABOLIC PANEL Routine 04/20/2024 9:27 PM EDT XR ABDOMEN 1 VIEW Routine 04/20/2024 8:3 8 PM EDT Other specified diseases of intestine Abdominal distension (gaseous) XR CHEST 1 VIEW Routine 04/20/2024 8:38 PM EDT Pleural effusion, not elsewhere classified Atelectasis Hypoxemia documented in this encounter Results * BASIC METABOLIC PANEL (05/31/2024 6:07 AM EDT) BUN 16 6 - 20 mg/dL 05/31/2024 6:46 AM EDT [facility]AT[facility] CREATININE 0.6 0.5 - 1.0 mg/dL 05/31/2024 6:46 AM EDT [facility] EGFR >90 >=60 mL/min 05/31/2024 6:46 AM EDT LAB[facility] Comment:eGFR is calculated b ased on the CKD-EPI 2020 equation. SODIUM 135 135 - 146 mmol/L 05/31/2024 6:46 AM EDT [facility] POTASSIUM 4.6 3.5 - 5.1 mmol/L 05/31/2024 6:46 AM EDT [facility] CHLORIDE 100 98 - 107 mmol/L 05/31/2024 6:46 AM EDT [facility] CO2 26 22 - 32 mmol/L 05/31/2024 6:46 AM EDT [facility] ANION GAP 9 7 - 15 mmol/L 05/31/2024 6:46 AM EDT [facility] GLUCOSE 96 70 - 120 mg/dL 05/31/2024 6:46 AM EDT [facility] CALCIUM 9.6 8.4 - 10.2 mg/dL 05/31/2024 6:46 AM EDT [facility] Blood Venous blood specimen / Unknown Venipuncture / Unknown 05/31/2024 6:07 AM EDT 05/31/2024 6:13 AM EDT Miguelina Cain MD LAB BLOOD ORDERABLES LAB[facility]ATORY [facility] [address] [place] [address] * (ABNORMAL) CBC (05/31/2024 6:07 AM EDT) WBC 4.80 4.00 - 10.80 K/uL 05/31/2024 6:28 AM EDT LAB[facility] RBC 3.69 3.85 - 5.15 M/uL 05/31/2024 6:28 AM EDT LAB[facility]ATORY [facility] HGB 11.2(L) 12.0 - 15.3 g/dL 05/31/2024 6:28 AM EDT LAB[facility] HCT 35.6(L) 36.0 - 45.2 % 05/31/2024 6:28 AM EDT LAB[facility] MCV 96.5 81.5 - 97.5 fL 05/31/2024 6:28 AM EDT LAB[facility] MCH 30.4 27.0 - 34.0 pg 05/31/2024 6:28 AM EDT LAB[facility] MCHC 31.5 32.0 - 36.0 g/dL 05/31/2024 6:28 AM EDT LAB[facility] RDW 14.8 11.5 - 15.5 % 05/31/2024 6:28 AM EDT LAB[facility]AT[facility] PLT 283 140 - 400 K/uL 05/31/2024 6:28 AM EDT LAB[facility] MPV 9.8 6.6 - 11.1 fL 05/31/2024 6:28 AM EDT LABORATORY [facility] nRBCs 0 <=0 /100 WBCs 05/31/2024 6:28 AM EDT [facility] Blood Venous blood specimen / Unknown Venipuncture / Unknown 05/31/2024 6:07 AM EDT 05/31/2024 6:13 AM EDT Miguelina Cain MD LAB BLOOD ORDERABLES LABORATORY [facility] [address] [place] [address] * BASIC METABOLIC PANEL (05/29/2024 7:25 AM EDT) BUN 13 6 - 20 mg/dL 05/29/2024 8:06 AM EDT LAB[facility] CREATININE 0.5 0.5 - 1.0 mg/dL 05/29/2024 8:06 AM EDT LAB[facility]AT[facility] EGFR >90 >=60 mL/min 05/29/2024 8:06 AM EDT LAB[facility] Comment:eGFR is calculated b ased on the CKD-EPI 2020 equation. SODIUM 136 135 - 146 mmol/L 05/29/2024 8:06 AM EDT LAB[facility] POTASSIUM 4.3 3.5 - 5.1 mmol/L 05/29/2024 8:06 AM EDT LAB[facility] CHLORIDE 102 98 - 107 mmol/L 05/29/2024 8:06 AM EDT LAB[facility] CO2 23 22 - 32 mmol/L 05/29/2024 8:06 AM EDT LAB[facility]ATORY [facility] ANION GAP 11 7 - 15 mmol/L 05/29/2024 8:06 AM EDT LAB[facility]ATORY [facility] GLUCOSE 92 70 - 120 mg/dL 05/29/2024 8:06 AM EDT LAB[facility]ATORY [facility] CALCIUM 9.5 8.4 - 10.2 mg/dL 05/29/2024 8:06 AM EDT LABORATORY C Blood Venous blood specimen / Unknown Venipuncture / Unknown 05/29/2024 7:25 AM EDT 05/29/2024 7:38 AM EDT Miguelina Cain MD LAB BLOOD ORDERABLES LAB[facility]AT[facility] [address] [place] [address] * (ABNORMAL) CBC (05/29/2024 7:25 AM EDT) WBC 5.34 4.00 - 10.80 K/uL 05/29/2024 7:49 AM EDT LAB[facility]ATORY [facility] RBC 3.54 3.85 - 5.15 M/uL 05/29/2024 7:49 AM EDT LAB[facility] HGB 10.7(L) 12.0 - 15.3 g/dL 05/29/2024 7:49 AM EDT LAB[facility]ATORY [facility] HCT 34.3(L) 36.0 - 45.2 % 05/29/2024 7:49 AM EDT LAB[facility]ATORY [facility] MCV 96.9 81.5 - 97.5 fL 05/29/2024 7:49 AM EDT LAB[facility]ATORY [facility] MCH 30.2 27.0 - 34.0 pg 05/29/2024 7:49 AM EDT LAB[facility]ATORY [facility] MCHC 31.2 32.0 - 36.0 g/dL 05/29/2024 7:49 AM EDT LAB[facility]ATORY [facility] RDW 14.9 11.5 - 15.5 % 05/29/2024 7:49 AM EDT LAB[facility]ATORY [facility] PLT 266 140 - 400 K/uL 05/29/2024 7:49 AM EDT LAB[facility]ATORY [facility] MPV 9.9 6.6 - 11.1 fL 05/29/2024 7:49 AM EDT LAB[facility]AT[facility] nRBCs 0 <=0 /100 WBCs 05/29/2024 7:49 AM EDT LAB[facility] Blood Venous blood specimen / Unknown Venipuncture / Unknown 05/29/2024 7:25 AM EDT 05/29/2024 7:37 AM EDT Miguelina Cain MD LAB BLOOD ORDERABLES LAB[facility]ATORY [facility] [address] [place] [address] * BASIC METABOLIC PANEL (05/26/2024 7:09 AM EDT) Pathologist [facility] BUN 14 6 - 20 mg/dL 05/26/2024 8:15 AM EDT LAB[facility]ATORY [facility] CREATININE 0.6 0.5 - 1.0 mg/dL 05/26/2024 8:15 AM EDT LAB[facility]ATORY [facility] EGFR >90 >=60 mL/min 05/26/2024 8:15 AM EDT LAB[facility]ATORY [facility] Comment:eGFR is calculated b ased on the CKD-EPI 2020 equation. SODIUM 137 135 - 146 mmol/L 05/26/2024 8:15 AM EDT LAB[facility]AT[facility] POTASSIUM 4.3 3.5 - 5.1 mmol/L 05/26/2024 8:15 AM EDT LAB[facility]AT[facility] CHLORIDE 100 98 - 107 mmol/L 05/26/2024 8:15 AM EDT LAB[facility]ATORY [facility] CO2 26 22 - 32 mmol/L 05/26/2024 8:15 AM EDT LAB[facility]ATORY [facility] ANION GAP 11 7 - 15 mmol/L 05/26/2024 8:15 AM EDT LABORATORY [facility] GLUCOSE 97 70 - 120 mg/dL 05/26/2024 8:15 AM EDT LAB[facility]ATORY [facility] CALCIUM 9.6 8.4 - 10.2 mg/dL 05/26/2024 8:15 AM EDT LABORATORY C Blood Venous blood specimen / Unknown Venipuncture / Unknown 05/26/2024 7:09 AM EDT 05/26/2024 7:47 AM EDT Miguelina Cain MD LAB BLOOD ORDERABLES LAB[facility]ATORY [facility] [address] [place] [address] * (ABNORMAL) CBC (05/26/2024 7:09 AM EDT) WBC 5.40 4.00 - 10.80 K/uL 05/26/2024 7:56 AM EDT LAB[facility]ATORY [facility] RBC 3.51 3.85 - 5.15 M/uL 05/26/2024 7:56 AM EDT LAB[facility]ATORY [facility] HGB 10.7(L) 12.0 - 15.3 g/dL 05/26/2024 7:56 AM EDT LAB[facility]ATORY [facility] HCT 34.7(L) 36.0 - 45.2 % 05/26/2024 7:56 AM EDT LAB[facility]AT[facility] MCV 98.9 81.5 - 97.5 fL 05/26/2024 7:56 AM EDT LAB[facility]ATORY [facility] MCH 30.5 27.0 - 34.0 pg 05/26/2024 7:56 AM EDT LAB[facility]AT[facility] MCHC 30.8 32.0 - 36.0 g/dL 05/26/2024 7:56 AM EDT LAB[facility]ATORY [facility] RDW 15.6 11.5 - 15.5 % 05/26/2024 7:56 AM EDT LAB[facility]ATORY [facility] PLT 245 140 - 400 K/uL 05/26/2024 7:56 AM EDT LAB[facility] MPV 10.0 6.6 - 11.1 fL 05/26/2024 7:56 AM EDT LABORATORY [facility] nRBCs 0 <=0 /100 WBCs 05/26/2024 7:56 AM EDT LABORATORY [facility] Blood Venous blood specimen / Unknown Venipuncture / Unknown 05/26/2024 7:09 AM EDT 05/26/2024 7:47 AM EDT Miguelina Cain MD LAB BLOOD ORDERABLES LAB[facility]ATORY [facility] [address] [place] [address] * BASIC METABOLIC PANEL (05/24/2024 6:43 AM EDT) BUN 14 6 - 20 mg/dL 05/24/2024 7:24 AM EDT LAB[facility] CREATININE 0.5 0.5 - 1.0 mg/dL 05/24/2024 7:24 AM EDT LAB[facility]AT[facility] EGFR >90 >=60 mL/min 05/24/2024 7:24 AM EDT LAB[facility] Comment:eGFR is calculated b ased on the CKD-EPI 2020 equation. SODIUM 135 135 - 146 mmol/L 05/24/2024 7:24 AM EDT LAB[facility]ATORY [facility] POTASSIUM 4.1 3.5 - 5.1 mmol/L 05/24/2024 7:24 AM EDT LAB[facility] CHLORIDE 101 98 - 107 mmol/L 05/24/2024 7:24 AM EDT LAB[facility] CO2 25 22 - 32 mmol/L 05/24/2024 7:24 AM EDT LAB[facility]ATORY [facility] ANION GAP 9 7 - 15 mmol/L 05/24/2024 7:24 AM EDT LAB[facility] GLUCOSE 100 70 - 120 mg/dL 05/24/2024 7:24 AM EDT LAB[facility] CALCIUM 9.4 8.4 - 10.2 mg/dL 05/24/2024 7:24 AM EDT LAB[facility]ATORY [facility] Blood Venous blood specimen / Unknown Venipuncture / Unknown 05/24/2024 6:43 AM EDT 05/24/2024 6:51 AM EDT Miguelina Cain MD LAB BLOOD ORDERABLES LAB[facility]ATORY [facility] [address] [place] [address] * (ABNORMAL) CBC (05/24/2024 6:43 AM EDT) Pathologist [facility] WBC 5.46 4.00 - 10.80 K/uL 05/24/2024 7:03 AM EDT LAB[facility]ATORY [facility] RBC 3.52 3.85 - 5.15 M/uL 05/24/2024 7:03 AM EDT LAB[facility]ATORY [facility] HGB 10.7(L) 12.0 - 15.3 g/dL 05/24/2024 7:03 AM EDT LAB[facility]ORY [facility] HCT 34.4(L) 36.0 - 45.2 % 05/24/2024 7:03 AM EDT LAB[facility]ATORY [facility] MCV 97.7 81.5 - 97.5 fL 05/24/2024 7:03 AM EDT LAB[facility]ATORY [facility] MCH 30.4 27.0 - 34.0 pg 05/24/2024 7:03 AM EDT LAB[facility] MCHC 31.1 32.0 - 36.0 g/dL 05/24/2024 7:03 AM EDT LAB[facility]ATORY [facility] RDW 15.9 11.5 - 15.5 % 05/24/2024 7:03 AM EDT LABORATORY [facility] PLT 242 140 - 400 K/uL 05/24/2024 7:03 AM EDT LAB[facility]ATORY [facility] MPV 9.9 6.6 - 11.1 fL 05/24/2024 7:03 AM EDT LABORATORY [facility] nRBCs 0 <=0 /100 WBCs 05/24/2024 7:03 AM EDT LABORATORY [facility] Blood Venous blood specimen / Unknown Venipuncture / Unknown 05/24/2024 6:43 AM EDT 05/24/2024 6:51 AM EDT Miguelina Cain MD LAB BLOOD ORDERABLES LAB[facility]ATORY [facility] [address] [place] [address] * (ABNORMAL) BASIC METABOLIC PANEL (05/22/2024 5:56 AM EDT) BUN 14 6 - 20 mg/dL 05/22/2024 7:04 AM EDT LABORATORY [facility] CREATININE 0.5 0.5 - 1.0 mg/dL 05/22/2024 7:04 AM EDT LABORATORY [facility] EGFR >90 >=60 mL/min 05/22/2024 7:04 AM EDT LABORATORY [facility] Comment:eGFR is calculated b ased on the CKD-EPI 2020 equation. SODIUM 135 135 - 146 mmol/L 05/22/2024 7:04 AM EDT LABORATORY [facility] POTASSIUM 4.4 3.5 - 5.1 mmol/L 05/22/2024 7:04 AM EDT LABORATORY [facility] Comment:Results may be false ly elevated due to hemolysis. CHLORIDE 97(L) 98 - 107 mmol/L 05/22/2024 7:04 AM EDT LABORATORY C CO2 28 22 - 32 mmol/L 05/22/2024 7:04 AM EDT LABORATORY [facility] ANION GAP 10 7 - 15 mmol/L 05/22/2024 7:04 AM EDT LABORATORY [facility] GLUCOSE 97 70 - 120 mg/dL 05/22/2024 7:04 AM EDT LABORATORY [facility] CALCIUM 9.4 8.4 - 10.2 mg/dL 05/22/2024 7:04 AM EDT LABORATORY [facility] Blood Venous blood specimen / Unknown Venipuncture / Unknown 05/22/2024 5:56 AM EDT 05/22/2024 6:28 AM EDT Miguelina Cain MD LAB BLOOD ORDERABLES [facility] [address] [place] [address] * (ABNORMAL) CBC (05/22/2024 5:56 AM EDT) WBC 5.08 4.00 - 10.80 K/uL 05/22/2024 6:44 AM EDT LAB[facility] RBC 3.37 3.85 - 5.15 M/uL 05/22/2024 6:44 AM EDT LAB[facility] HGB 10.5(L) 12.0 - 15.3 g/dL 05/22/2024 6:44 AM EDT LAB[facility] HCT 32.7(L) 36.0 - 45.2 % 05/22/2024 6:44 AM EDT LAB[facility] MCV 97.0 81.5 - 97.5 fL 05/22/2024 6:44 AM EDT LAB[facility] MCH 31.2 27.0 - 34.0 pg 05/22/2024 6:44 AM EDT LAB[facility] MCHC 32.1 32.0 - 36.0 g/dL 05/22/2024 6:44 AM EDT LAB[facility] RDW 15.9 11.5 - 15.5 % 05/22/2024 6:44 AM EDT LAB[facility] PLT 222 140 - 400 K/uL 05/22/2024 6:44 AM EDT LAB[facility] MPV 10.5 6.6 - 11.1 fL 05/22/2024 6:44 AM EDT LAB[facility] nRBCs 0 <=0 /100 WBCs 05/22/2024 6:44 AM EDT LAB[facility] Blood Venous blood specimen / Unknown Venipuncture / Unknown 05/22/2024 5:56 AM EDT 05/22/2024 6:28 AM EDT Miguelina Cain MD LAB BLOOD ORDERABLES LAB[facility] [address] [place] [address] * BASIC METABOLIC PANEL (05/19/2024 6:33 AM EDT) Pathologist [facility] BUN 10 6 - 20 mg/dL 05/19/2024 7:27 AM EDT LAB[facility]AT[facility] CREATININE 0.5 0.5 - 1.0 mg/dL 05/19/2024 7:27 AM EDT LAB[facility]AT[facility] EGFR >90 >=60 mL/min 05/19/2024 7:27 AM EDT LAB[facility]ATORY [facility] Comment:eGFR is calculated b ased on the CKD-EPI 2020 equation. SODIUM 136 135 - 146 mmol/L 05/19/2024 7:27 AM EDT LABORATORY [facility] POTASSIUM 4.1 3.5 - 5.1 mmol/L 05/19/2024 7:27 AM EDT LAB[facility]ATORY [facility] CHLORIDE 100 98 - 107 mmol/L 05/19/2024 7:27 AM EDT LAB[facility]ATORY [facility] CO2 25 22 - 32 mmol/L 05/19/2024 7:27 AM EDT LAB[facility]ATORY [facility] ANION GAP 11 7 - 15 mmol/L 05/19/2024 7:27 AM EDT LAB[facility]ATORY [facility] GLUCOSE 106 70 - 120 mg/dL 05/19/2024 7:27 AM EDT LAB[facility]ORY [facility] CALCIUM 9.5 8.4 - 10.2 mg/dL 05/19/2024 7:27 AM EDT LABORATORY C Blood Venous blood specimen / Unknown Venipuncture / Unknown 05/19/2024 6:33 AM EDT 05/19/2024 6:55 AM EDT Miguelina Cain MD LAB BLOOD ORDERABLES LAB[facility] [address] [place] [address] * (ABNORMAL) CBC (05/19/2024 6:33 AM EDT) Pathologist [facility] WBC 6.28 4.00 - 10.80 K/uL 05/19/2024 7:11 AM EDT LAB[facility]ATORY [facility] RBC 3.32 3.85 - 5.15 M/uL 05/19/2024 7:11 AM EDT LABORATORY [facility] HGB 10.2(L) 12.0 - 15.3 g/dL 05/19/2024 7:11 AM EDT LABORATORY [facility] HCT 31.9(L) 36.0 - 45.2 % 05/19/2024 7:11 AM EDT LAB[facility]ATORY [facility] MCV 96.1 81.5 - 97.5 fL 05/19/2024 7:11 AM EDT LAB[facility]ATORY [facility] MCH 30.7 27.0 - 34.0 pg 05/19/2024 7:11 AM EDT LABORATORY [facility] MCHC 32.0 32.0 - 36.0 g/dL 05/19/2024 7:11 AM EDT LABORATORY [facility] RDW 16.1 11.5 - 15.5 % 05/19/2024 7:11 AM EDT LABORATORY [facility] PLT 222 140 - 400 K/uL 05/19/2024 7:11 AM EDT LABORATORY [facility] MPV 10.5 6.6 - 11.1 fL 05/19/2024 7:11 AM EDT LABORATORY [facility] nRBCs 0 <=0 /100 WBCs 05/19/2024 7:11 AM EDT LABORATORY GM Blood Venous blood specimen / Unknown Venipuncture / Unknown 05/19/2024 6:33 AM EDT 05/19/2024 6:55 AM EDT Miguelina Cain MD LAB BLOOD ORDERABLES [facility]AT[facility] [address] [place] [address] * BASIC METABOLIC PANEL (05/17/2024 5:39 AM EDT) BUN 12 6 - 20 mg/dL 05/17/2024 6:53 AM EDT LABORATORY [facility] CREATININE 0.5 0.5 - 1.0 mg/dL 05/17/2024 6:53 AM EDT LABORATORY [facility] EGFR >90 >=60 mL/min 05/17/2024 6:53 AM EDT LABORATORY [facility] Comment:eGFR is calculated b ased on the CKD-EPI 2020 equation. SODIUM 139 135 - 146 mmol/L 05/17/2024 6:53 AM EDT LABORATORY [facility] POTASSIUM 4.3 3.5 - 5.1 mmol/L 05/17/2024 6:53 AM EDT LABORATORY [facility] CHLORIDE 102 98 - 107 mmol/L 05/17/2024 6:53 AM EDT LABORATORY [facility] CO2 26 22 - 32 mmol/L 05/17/2024 6:53 AM EDT LABORATORY [facility] ANION GAP 11 7 - 15 mmol/L 05/17/2024 6:53 AM EDT LABORATORY [facility] GLUCOSE 99 70 - 120 mg/dL 05/17/2024 6:53 AM EDT LABORATORY [facility] CALCIUM 9.6 8.4 - 10.2 mg/dL 05/17/2024 6:53 AM EDT LABORATORY [facility] Blood Venous blood specimen / Unknown Venipuncture / Unknown 05/17/2024 5:39 AM EDT 05/17/2024 6:21 AM EDT Miguelina Cain MD LAB BLOOD ORDERABLES [facility] [address] [place] [address] * (ABNORMAL) CBC (05/17/2024 5:39 AM EDT) WBC 6.62 4.00 - 10.80 K/uL 05/17/2024 6:36 AM EDT LABORATORY [facility] RBC 3.22 3.85 - 5.15 M/uL 05/17/2024 6:36 AM EDT LABORATORY [facility] HGB 9.8(L) 12.0 - 15.3 g/dL 05/17/2024 6:36 AM EDT LABORATORY [facility] HCT 30.6(L) 36.0 - 45.2 % 05/17/2024 6:36 AM EDT LABORATORY [facility] MCV 95.0 81.5 - 97.5 fL 05/17/2024 6:36 AM EDT LABORATORY [facility] MCH 30.4 27.0 - 34.0 pg 05/17/2024 6:36 AM EDT LABORATORY [facility] MCHC 32.0 32.0 - 36.0 g/dL 05/17/2024 6:36 AM EDT LABORATORY [facility] RDW 16.1 11.5 - 15.5 % 05/17/2024 6:36 AM EDT LABORATORY [facility] PLT 215 140 - 400 K/uL 05/17/2024 6:36 AM EDT LABORATORY [facility] MPV 10.5 6.6 - 11.1 fL 05/17/2024 6:36 AM EDT LABORATORY [facility] nRBCs 0 <=0 /100 WBCs 05/17/2024 6:36 AM EDT LAB[facility]AT[facility] Blood Venous blood specimen / Unknown Venipuncture / Unknown 05/17/2024 5:39 AM EDT 05/17/2024 6:21 AM EDT Miguelina Cain MD LAB BLOOD ORDERABLES [facility] [address] [place] [address] * (ABNORMAL) BASIC METABOLIC PANEL (05/15/2024 7:13 AM EDT) BUN 11 6 - 20 mg/dL 05/15/2024 8:04 AM EDT LABORATORY [facility] CREATININE 0.5 0.5 - 1.0 mg/dL 05/15/2024 8:04 AM EDT LABORATORY [facility] EGFR >90 >=60 mL/min 05/15/2024 8:04 AM EDT LABORAT[facility] Comment:eGFR is calculated b ased on the CKD-EPI 2020 equation. SODIUM 136 135 - 146 mmol/L 05/15/2024 8:04 AM EDT LABORATORY [facility] POTASSIUM 4.0 3.5 - 5.1 mmol/L 05/15/2024 8:04 AM EDT LABORATORY [facility] CHLORIDE 100 98 - 107 mmol/L 05/15/2024 8:04 AM EDT LABORATORY C CO2 24 22 - 32 mmol/L 05/15/2024 8:04 AM EDT LABORATORY [facility] ANION GAP 12 7 - 15 mmol/L 05/15/2024 8:04 AM EDT LABORATORY [facility] GLUCOSE 144(H) 70 - 120 mg/dL 05/15/2024 8:04 AM EDT LABORAT[facility] CALCIUM 9.3 8.4 - 10.2 mg/dL 05/15/2024 8:04 AM EDT LABORAT[facility] Blood Venous blood specimen / Unknown Venipuncture / Unknown 05/15/2024 7:13 AM EDT 05/15/2024 7:35 AM EDT Miguelina Cain MD LAB BLOOD ORDERABLES [facility] [address] [place] [address] * (ABNORMAL) CBC (05/15/2024 7:13 AM EDT) WBC 6.08 4.00 - 10.80 K/uL 05/15/2024 7:46 AM EDT LABORATORY [facility] RBC 3.31 3.85 - 5.15 M/uL 05/15/2024 7:46 AM EDT LABORATORY [facility] HGB 10.1(L) 12.0 - 15.3 g/dL 05/15/2024 7:46 AM EDT LABORATORY [facility] HCT 32.1(L) 36.0 - 45.2 % 05/15/2024 7:46 AM EDT LABORATORY [facility] MCV 97.0 81.5 - 97.5 fL 05/15/2024 7:46 AM EDT LABORATORY C MCH 30.5 27.0 - 34.0 pg 05/15/2024 7:46 AM EDT LABORATORY [facility] MCHC 31.5 32.0 - 36.0 g/dL 05/15/2024 7:46 AM EDT LABORATORY [facility] RDW 15.6 11.5 - 15.5 % 05/15/2024 7:46 AM EDT LABORATORY [facility] PLT 230 140 - 400 K/uL 05/15/2024 7:46 AM EDT LABORATORY C MPV 10.3 6.6 - 11.1 fL 05/15/2024 7:46 AM EDT LABORATORY GM nRBCs 0 <=0 /100 WBCs 05/15/2024 7:46 AM EDT LABORATORY GM Blood Venous blood specimen / Unknown Venipuncture / Unknown 05/15/2024 7:13 AM EDT 05/15/2024 7:35 AM EDT Miguelina Cain MD LAB BLOOD ORDERABLES [facility] [address] [place] [address] * BASIC METABOLIC PANEL (05/12/2024 6:01 AM EDT) BUN 14 6 - 20 mg/dL 05/12/2024 6:37 AM EDT LABORATORY [facility] CREATININE 0.5 0.5 - 1.0 mg/dL 05/12/2024 6:37 AM EDT LABORATORY [facility] EGFR >90 >=60 mL/min 05/12/2024 6:37 AM EDT [facility] Comment:eGFR is calculated b ased on the CKD-EPI 2020 equation. SODIUM 137 135 - 146 mmol/L 05/12/2024 6:37 AM EDT [facility] POTASSIUM 4.0 3.5 - 5.1 mmol/L 05/12/2024 6:37 AM EDT [facility] CHLORIDE 102 98 - 107 mmol/L 05/12/2024 6:37 AM EDT [facility] CO2 25 22 - 32 mmol/L 05/12/2024 6:37 AM EDT [facility] ANION GAP 10 7 - 15 mmol/L 05/12/2024 6:37 AM EDT [facility] GLUCOSE 96 70 - 120 mg/dL 05/12/2024 6:37 AM EDT [facility] CALCIUM 9.1 8.4 - 10.2 mg/dL 05/12/2024 6:37 AM EDT LABORATORY [facility] Blood Venous blood specimen / Unknown Venipuncture / Unknown 05/12/2024 6:01 AM EDT 05/12/2024 6:07 AM EDT Miguelina Cain MD LAB BLOOD ORDERABLES LAB[facility]ATORY [facility] [address] [place] [address] * (ABNORMAL) CBC (05/12/2024 6:01 AM EDT) WBC 4.84 4.00 - 10.80 K/uL 05/12/2024 6:20 AM EDT [facility] RBC 3.14 3.85 - 5.15 M/uL 05/12/2024 6:20 AM EDT [facility] HGB 9.4(L) 12.0 - 15.3 g/dL 05/12/2024 6:20 AM EDT [facility] HCT 30.1(L) 36.0 - 45.2 % 05/12/2024 6:20 AM EDT [facility] MCV 95.9 81.5 - 97.5 fL 05/12/2024 6:20 AM EDT [facility] MCH 29.9 27.0 - 34.0 pg 05/12/2024 6:20 AM EDT [facility] MCHC 31.2 32.0 - 36.0 g/dL 05/12/2024 6:20 AM EDT [facility] RDW 15.7 11.5 - 15.5 % 05/12/2024 6:20 AM EDT [facility] PLT 247 140 - 400 K/uL 05/12/2024 6:20 AM EDT [facility] MPV 10.1 6.6 - 11.1 fL 05/12/2024 6:20 AM EDT [facility] nRBCs 0 <=0 /100 WBCs 05/12/2024 6:20 AM EDT [facility] Blood Venous blood specimen / Unknown Venipuncture / Unknown 05/12/2024 6:01 AM EDT 05/12/2024 6:07 AM EDT Miguelina Cain MD LAB BLOOD ORDERABLES [facility]AT[facility] [address] [place] [address] * BASIC METABOLIC PANEL (05/10/2024 5:57 AM EDT) BUN 13 6 - 20 mg/dL 05/10/2024 6:40 AM EDT [facility] CREATININE 0.5 0.5 - 1.0 mg/dL 05/10/2024 6:40 AM EDT [facility] EGFR >90 >=60 mL/min 05/10/2024 6:40 AM EDT [facility] Comment:eGFR is calculated b ased on the CKD-EPI 2020 equation. SODIUM 138 135 - 146 mmol/L 05/10/2024 6:40 AM EDT [facility] POTASSIUM 4.6 3.5 - 5.1 mmol/L 05/10/2024 6:40 AM EDT [facility] CHLORIDE 103 98 - 107 mmol/L 05/10/2024 6:40 AM EDT [facility] CO2 26 22 - 32 mmol/L 05/10/2024 6:40 AM EDT [facility] ANION GAP 9 7 - 15 mmol/L 05/10/2024 6:40 AM EDT [facility] GLUCOSE 101 70 - 120 mg/dL 05/10/2024 6:40 AM EDT [facility] CALCIUM 9.0 8.4 - 10.2 mg/dL 05/10/2024 6:40 AM EDT [facility] Blood Venous blood specimen / Unknown Venipuncture / Unknown 05/10/2024 5:57 AM EDT 05/10/2024 6:07 AM EDT Miguelina Cain MD LAB BLOOD ORDERABLES Performing Organization Address City/State/[facility] Co de Phone Number LABORATORY [facility] [address] [place] [address] * (ABNORMAL) CBC (05/10/2024 5:57 AM EDT) WBC 5.18 4.00 - 10.80 K/uL 05/10/2024 6:23 AM EDT [facility] RBC 3.05 3.85 - 5.15 M/uL 05/10/2024 6:23 AM EDT [facility] HGB 9.2(L) 12.0 - 15.3 g/dL 05/10/2024 6:23 AM EDT [facility] HCT 28.9(L) 36.0 - 45.2 % 05/10/2024 6:23 AM EDT [facility] MCV 94.8 81.5 - 97.5 fL 05/10/2024 6:23 AM EDT [facility] MCH 30.2 27.0 - 34.0 pg 05/10/2024 6:23 AM EDT [facility] MCHC 31.8 32.0 - 36.0 g/dL 05/10/2024 6:23 AM EDT [facility] RDW 15.8 11.5 - 15.5 % 05/10/2024 6:23 AM EDT LABORATORY [facility] PLT 293 140 - 400 K/uL 05/10/2024 6:23 AM EDT LABORATORY [facility] MPV 10.3 6.6 - 11.1 fL 05/10/2024 6:23 AM EDT LABORATORY [facility] nRBCs 0 <=0 /100 WBCs 05/10/2024 6:23 AM EDT LABORATORY [facility] Blood Venous blood specimen / Unknown Venipuncture / Unknown 05/10/2024 5:57 AM EDT 05/10/2024 6:07 AM EDT Miguelina Cain MD LAB BLOOD ORDERABLES [facility]AT[facility] [address] [place] [address] * BASIC METABOLIC PANEL (05/08/2024 7:07 AM EDT) BUN 10 6 - 20 mg/dL 05/08/2024 8:12 AM EDT LABORATORY [facility] CREATININE 0.5 0.5 - 1.0 mg/dL 05/08/2024 8:12 AM EDT LABORATORY [facility] EGFR >90 >=60 mL/min 05/08/2024 8:12 AM EDT LABOR[facility]ORY [facility] Comment:eGFR is calculated b ased on the CKD-EPI 2020 equation. SODIUM 137 135 - 146 mmol/L 05/08/2024 8:12 AM EDT LABORATORY [facility] POTASSIUM 05/08/2024 8:12 AM EDT LABORATORY [facility] Comment:Specimen too hemolyz ed. Reorder if needed. CHLORIDE 101 98 - 107 mmol/L 05/08/2024 8:12 AM EDT LABORATORY C CO2 24 22 - 32 mmol/L 05/08/2024 8:12 AM EDT LABORATORY [facility] ANION GAP 12 7 - 15 mmol/L 05/08/2024 8:12 AM EDT LABORATORY [facility] GLUCOSE 106 70 - 120 mg/dL 05/08/2024 8:12 AM EDT LABORATORY C CALCIUM 9.0 8.4 - 10.2 mg/dL 05/08/2024 8:12 AM EDT [facility] Blood Venous blood specimen / Unknown Venipuncture / Unknown 05/08/2024 7:07 AM EDT 05/08/2024 7:36 AM EDT Miguelina Cain MD LAB BLOOD ORDERABLES LABORATORY [facility] [address] [place] [address] * (ABNORMAL) CBC (05/08/2024 7:07 AM EDT) WBC 4.70 4.00 - 10.80 K/uL 05/08/2024 7:52 AM EDT [facility] RBC 3.14 3.85 - 5.15 M/uL 05/08/2024 7:52 AM EDT LABORATORY [facility] HGB 9.6(L) 12.0 - 15.3 g/dL 05/08/2024 7:52 AM EDT [facility] HCT 30.5(L) 36.0 - 45.2 % 05/08/2024 7:52 AM EDT LABORATORY GM MCV 97.1 81.5 - 97.5 fL 05/08/2024 7:52 AM EDT LABORATORY C MCH 30.6 27.0 - 34.0 pg 05/08/2024 7:52 AM EDT LABORATORY [facility] MCHC 31.5 32.0 - 36.0 g/dL 05/08/2024 7:52 AM EDT LABORATORY [facility] RDW 15.7 11.5 - 15.5 % 05/08/2024 7:52 AM EDT LABORATORY [facility] PLT 343 140 - 400 K/uL 05/08/2024 7:52 AM EDT LABORATORY C MPV 10.7 6.6 - 11.1 fL 05/08/2024 7:52 AM EDT LABORATORY C nRBCs 0 <=0 /100 WBCs 05/08/2024 7:52 AM EDT LABORATORY [facility] Blood Venous blood specimen / Unknown Venipuncture / Unknown 05/08/2024 7:07 AM EDT 05/08/2024 7:42 AM EDT Miguelina Cain MD LAB BLOOD ORDERABLES LAB[facility]ATORY [facility] [address] [place] [id number] * IR VENOUS ACCESS NON-MEDIPORT (05/06/2024 1:41 PM EDT) Anatomical Region Laterality Modality Any X-Ray Angiograph y 05/09/2024 10:0 0 PM EDT Impressions 05/10/2024 9:59 AM EDT IMPRESSION: Successful placement of a tunneled infusion catheter. PLAN: The patient should remain upright with head of bed at least 30 degrees for 4 hours. The catheter may be used immediately. I have personally reviewed this examination and agree with the resident/fellow physician's interpretation. Narrative 05/10/2024 9:59 AM EDT PROCEDURE: Tunneled infusion catheter placement. INDICATION: 54-year-old female in need for long-term vascular access. ATTENDING (OPERATING PHYSICIAN): Mike Osorio MD SCRUBBED RESIDENT (OPERATING PHYSICIAN): Tammie Decker MD SUPPORTING PROVIDER (CODER OPERATOR): RT Prasanna CONSENT: After a detailed discussion of the procedure, risks, benefits and alternative treatment options, informed consent was obtained. TIME OUT: A time out procedure was performed. The patient's identification was verified. Informed consent with agreement of procedure, site and position was obtained. All necessary equipment was available prior to procedure. CONTRAST: No contrast was administered. COMPLICATIONS: None. ANESTHESIA: Local lidocaine. IV Fentanyl. SEDATION TIME: N/A MEDICATIONS: See MAR PROCEDURE DESCRIPTION: Ultrasound was used to evaluate the right internal jugular vein. The neck and chest were prepped and draped in the usual sterile fashion. Using real-time ultrasound guidance, the internal jugular vein was punctured utilizing a micropuncture needle. Ultrasound images demonstrated the micropuncture needle tip in the internal jugular vein. Digital ultrasound images were acquired and digitally archived. A 2nd incision was then made in the upper chest. A subcutaneous tunnel was created from the incision site in the chest directed to the internal jugular access above the clavicle. A 5 Fr 22 cm cuffed single lumen power injectable infusion catheter was placed in the internal jugular access through the tunnel under fluoroscopic guidance. Fluoroscopic images were digitally archived. The catheter was secured and an occlusive dressing was applied. The procedure was performed under the personal supervision of Dr. Mike Osorio MD who was present for the hollingsworth and critical portions of the procedure and immediately available for the entire procedure. FINDINGS: Ultrasound shows a compressible and anechoic right internal jugular vein. The catheter tip is in the right atrium. Procedure Note Mike Osorio MD - 05/10/2024 PROCEDURE: Tunneled infusion catheter placement. INDICATION: 54-year-old female in need for long-term vascular access. ATTENDING (OPERATING PHYSICIAN): Mike Osorio MD SCRUBBED RESIDENT (OPERATING PHYSICIAN): Tammie Decker MD SUPPORTING PROVIDER (CODER OPERATOR): RT Prasanna CONSENT: After a detailed discussion of the procedure, risks, benefits andalternative treatment options, informed consent was obtained. TIME OUT: A time out procedure was performed. The patient's identificationwas verified. Informed consent with agreement of procedure, site andposition was obtained. All necessary equipment was available prior toprocedure. CONTRAST: No contrast was administered. COMPLICATIONS: None. ANESTHESIA: Local lidocaine. IV Fentanyl. SEDATION TIME: N/A MEDICATIONS: See MAR PROCEDURE DESCRIPTION: Ultrasound was used to evaluate the right internaljugular vein. The neck and chest were prepped and draped in the usualsterile fashion. Using real-time ultrasound guidance, the internal jugularvein was punctured utilizing a micropuncture needle. Ultrasound imagesdemonstrated the micropuncture needle tip in the internal jugular vein.Digital ultrasound images were acquired and digitally archived. A 2ndincision was then made in the upper chest. A subcutaneous tunnel wascreated from the incision site in the chest directed to the internaljugular access above the clavicle. A 5 Fr 22 cm cuffed single lumen powerinjectable infusion catheter was placed in the internal jugular accessthrough the tunnel under fluoroscopic guidance. Fluoroscopic images weredigitally archived. The catheter was secured and an occlusive dressing wasapplied. The procedure was performed under the personal supervision of Dr. Brina MD who was present for the hollingsworth and critical portions of theprocedure and immediately available for the entire procedure. FINDINGS: Ultrasound shows a compressible and anechoic right internal jugular vein.The catheter tip is in the right atrium. IMPRESSION IMPRESSION: Successful placement of a tunneled infusion catheter. PLAN: The patient should remain upright with head of bed at least 30degrees for 4 hours. The catheter may be used immediately. I have personally reviewed this examination and agree with the resident/fellow physician's interpretation. Christie Byers PA-C RAD SPECIAL PROCEDUR ES * Central Line (05/06/2024 1:28 PM EDT) Narrative Mike Osorio MD - 05/06/2024 1:28 PM EDT Nate Perez RN 05/06/2024 1:28 PM Central Line General Information and Staff: Performed by: Tammie Decker MD Supervised by: Mike Osorio MD Procedure Date/Time: 05/06/2024 1:28 PM Patient Location: IR Indication: terminal gauger vascular access Patient identity confirmed: Verbally with patient and arm band (see official TimeOut for additional information) Time out: Immediately prior to the procedure a time out was completed Anticoagulation therapy: Yes Medication: Heparin Procedure Detail: Sterility Preparation: mask worn, sterile gloves worn, cap worn, sterile sheet used, sterile gown worn and full body drape Provider Hand Hygiene: antimicrobial soap and water Placement conditions: Elective Patient Position: Supine Prep: Chlorhexidine Local Anesthetic Used: Yes Catheter Type: Tunneled Power Line Tunneled CVC Laterality: Right Tunneled CVC Site: Chest Tunneled CVC Vessel: Internal Jugular Catheter size: 5 Fr Catheter Total Length (cm): 22 Catheter Internal Length (cm): 22 Catheter External Length (cm): 0 Lot Number: [id number] Number of Lumens: Single lumen Oximetric Catheter?: No Number of Needle Passes: 1 Placement: target vein identified, needle advanced into vein and blood aspirated and guidewire advanced into vein Radiologic Support with Sterile Technique: surface landmarks Identified, ultrasound guidance used and live fluoroscopy Sterile gel and probe cover used for ultrasound?: Yes Intravenous Verification: live fluoroscopy Outcomes/Complications: patient tolerated procedure well with no complications Estimated blood loss (mL): Minimal PA Catheter Placed?: No Post Insertion: Post Insertion Details: all ports aspirated, all ports flushed easily, guidewire was removed, examined and appears intact, line was sutured in place and dressing was applied Site cleansed: Chlorhexidine Line secured with: Monafilament Suture Dressing applied: Gel Chlorhexidine Gluconate, Transparent and Occlusive Tip Confirmation: Radiologic Tip Location: Line Ok to use and Other Location Other: RA Mike Osorio MD ANESTHESIA * (ABNORMAL) CBC (05/05/2024 9:35 AM EDT) WBC 8.31 4.00 - 10.80 K/uL 05/05/2024 10:23 AM EDT [facility] RBC 3.17 3.85 - 5.15 M/uL 05/05/2024 10:23 AM EDT [facility] HGB 9.5(L) 12.0 - 15.3 g/dL 05/05/2024 10:23 AM EDT [facility] HCT 30.7(L) 36.0 - 45.2 % 05/05/2024 10:23 AM EDT LAB[facility] MCV 96.8 81.5 - 97.5 fL 05/05/2024 10:23 AM EDT LAB[facility] MCH 30.0 27.0 - 34.0 pg 05/05/2024 10:23 AM EDT LAB[facility] MCHC 30.9 32.0 - 36.0 g/dL 05/05/2024 10:23 AM EDT LAB[facility] RDW 16.0 11.5 - 15.5 % 05/05/2024 10:23 AM EDT LAB[facility] PLT 482(H) 140 - 400 K/uL 05/05/2024 10:23 AM EDT [facility] MPV 10.7 6.6 - 11.1 fL 05/05/2024 10:23 AM EDT [facility] nRBCs 0 <=0 /100 WBCs 05/05/2024 10:23 AM EDT [facility] Blood Venous blood specimen / Unknown Venipuncture / Unknown 05/05/2024 9:35 AM EDT 05/05/2024 10:11 AM EDT Miguelina Cain MD LAB BLOOD ORDERABLES [facility] [address] [place] [address] * (ABNORMAL) BASIC METABOLIC PANEL (05/05/2024 7:55 AM EDT) BUN 21(H) 6 - 20 mg/dL 05/05/2024 9:36 AM EDT [facility] CREATININE 0.5 0.5 - 1.0 mg/dL 05/05/2024 9:36 AM EDT [facility] EGFR >90 >=60 mL/min 05/05/2024 9:36 AM EDT [facility] Comment:eGFR is calculated b ased on the CKD-EPI 2020 equation. SODIUM 137 135 - 146 mmol/L 05/05/2024 9:36 AM EDT [facility] POTASSIUM 3.9 3.5 - 5.1 mmol/L 05/05/2024 9:36 AM EDT [facility] CHLORIDE 100 98 - 107 mmol/L 05/05/2024 9:36 AM EDT LABORATORY C CO2 21(L) 22 - 32 mmol/L 05/05/2024 9:36 AM EDT LABORATORY C ANION GAP 16(H) 7 - 15 mmol/L 05/05/2024 9:36 AM EDT LABORATORY C GLUCOSE 91 70 - 120 mg/dL 05/05/2024 9:36 AM EDT [facility] CALCIUM 9.5 8.4 - 10.2 mg/dL 05/05/2024 9:36 AM EDT LABORATORY [facility] Blood Venous blood specimen / Unknown Venipuncture / Unknown 05/05/2024 7:55 AM EDT 05/05/2024 9:36 AM EDT Miguelina Cain MD LAB BLOOD ORDERABLES LABORATORY [facility] [address] [place] [address] * (ABNORMAL) BLOOD GAS, VENOUS (05/03/2024 8:16 PM EDT) Temperature 37.0 C 05/03/2024 8:28 PM EDT [facility] pH, Venous 7.417 7.320 - 7.430 units 05/03/2024 8:28 PM EDT [facility] pCO2, Venous 33.7(L) 40.0 - 60.0 mmHg 05/03/2024 8:28 PM EDT [facility] pO2, Venous 40.4 25.0 - 50.0 mmHg 05/03/2024 8:28 PM EDT LAB[facility] Base Excess, Venous -2.2(L) -2.0 - 2.0 mmol/L 05/03/2024 8:28 PM EDT [facility] HGB 10.3(L) 12.0 - 15.3 g/dL 05/03/2024 8:28 PM EDT [facility] Oxyhemoglobin, Venous 69.3 40.0 - 85.0 % total Hgb 05/03/2024 8:28 PM EDT LAB[facility] Carboxyhemoglobi n, Whole Blood 1.3 <=1.5 % total Hgb 05/03/2024 8:28 PM EDT LAB[facility] Comment:Smokers: 0-9.0 % Methemoglobin, Whole Blood 0.6 <=1.5 % total Hgb 05/03/2024 8:28 PM EDT [facility] Reduced Hemoglobin, Venous 28.8 % total Hgb 05/03/2024 8:28 PM EDT LAB[facility] O2 Content, Venous 10.1 7.0 - 18.0 %vol 05/03/2024 8:28 PM EDT LAB[facility] Bicarbonate, Whole Blood 21.3(L) 23.0 - 31.0 mmol/L 05/03/2024 8:28 PM EDT [facility] Blood Venous blood specimen / Unknown Venipuncture / Unknown 05/03/2024 8:16 PM EDT 05/03/2024 8:23 PM EDT Miguelina Cain MD LAB BLOOD ORDERABLES LABORATORY [facility] [address] [place] [address] * LACTATE (05/03/2024 8:16 PM EDT) Lactate 1.1 0.4 - 2.0 mmol/L 05/03/2024 8:50 PM EDT [facility] Blood Venous blood specimen / Unknown Venipuncture / Unknown 05/03/2024 8:16 PM EDT 05/03/2024 8:23 PM EDT Miguelina Cain MD LAB BLOOD ORDERABLES Performing Organization Address [facility] Co de Phone Number LABORATORY [facility] [address] [place] [address] * PHOSPHORUS (05/03/2024 8:16 PM EDT) Phosphorus 3.9 2.5 - 4.8 mg/dL 05/03/2024 8:54 PM EDT LABORATORY C Blood Venous blood specimen / Unknown Venipuncture / Unknown 05/03/2024 8:16 PM EDT 05/03/2024 8:23 PM EDT Miguelina Cain MD LAB BLOOD ORDERABLES Performing Organization Address [facility] Co de Phone Number LABORATORY [facility] [address] [place] [address] * MAGNESIUM (05/03/2024 8:16 PM EDT) Magnesium 2.1 1.5 - 2.6 mg/dL 05/03/2024 8:54 PM EDT LABORATORY [facility] Blood Venous blood specimen / Unknown Venipuncture / Unknown 05/03/2024 8:16 PM EDT 05/03/2024 8:23 PM EDT Miguelina Cain MD LAB BLOOD ORDERABLES Performing Organization Address City/[facility] Co de Phone Number LABORATORY [facility] [address] [place] [address] * (ABNORMAL) COMPREHENSIVE METABOLIC PANEL (05/03/2024 8:16 PM EDT) BUN 18 6 - 20 mg/dL 05/03/2024 8:54 PM EDT LABORATORY [facility] CREATININE 0.8 0.5 - 1.0 mg/dL 05/03/2024 8:54 PM EDT LAB[facility]ORY [facility] EGFR >90 >=60 mL/min 05/03/2024 8:54 PM EDT LAB[facility] Comment:eGFR is calculated b ased on the CKD-EPI 2020 equation. SODIUM 137 135 - 146 mmol/L 05/03/2024 8:54 PM EDT LAB[facility] POTASSIUM 4.2 3.5 - 5.1 mmol/L 05/03/2024 8:54 PM EDT LAB[facility] CHLORIDE 99 98 - 107 mmol/L 05/03/2024 8:54 PM EDT LAB[facility] CO2 20(L) 22 - 32 mmol/L 05/03/2024 8:54 PM EDT LAB[facility] ANION GAP 18(H) 7 - 15 mmol/L 05/03/2024 8:54 PM EDT LAB[facility] GLUCOSE 96 70 - 120 mg/dL 05/03/2024 8:54 PM EDT LAB[facility] Albumin 3.4(L) 3.8 - 5.0 g/dL 05/03/2024 8:54 PM EDT LABORATORY [facility] AST 28 10 - 35 U/L 05/03/2024 8:54 PM EDT LAB[facility] Alkaline Phosphatase 140(H) 35 - 130 U/L 05/03/2024 8:54 PM EDT LAB[facility] Bilirubin, Total 0.6 <=1.2 mg/dL 05/03/2024 8:54 PM EDT LAB[facility]ORY [facility] CALCIUM 9.7 8.4 - 10.2 mg/dL 05/03/2024 8:54 PM EDT LAB[facility] Protein 6.8 6.0 - 8.3 g/dL 05/03/2024 8:54 PM EDT LAB[facility]ORY [facility] ALT 18 10 - 35 U/L 05/03/2024 8:54 PM EDT LABORATORY [facility] Blood Venous blood specimen / Unknown Venipuncture / Unknown 05/03/2024 8:16 PM EDT 05/03/2024 8:23 PM EDT Miguelina Cain MD LAB BLOOD ORDERABLES LABORATORY [facility] [address] [place] [address] * (ABNORMAL) CBC (05/03/2024 8:16 PM EDT) WBC 12.43(H) 4.00 - 10.80 K/uL 05/03/2024 8:32 PM EDT LABORATORY [facility] RBC 3.46 3.85 - 5.15 M/uL 05/03/2024 8:32 PM EDT LABORATORY [facility] HGB 10.4(L) 12.0 - 15.3 g/dL 05/03/2024 8:32 PM EDT LAB[facility]ORY [facility] HCT 33.4(L) 36.0 - 45.2 % 05/03/2024 8:32 PM EDT LABORATORY [facility] MCV 96.5 81.5 - 97.5 fL 05/03/2024 8:32 PM EDT LABORATORY [facility] MCH 30.1 27.0 - 34.0 pg 05/03/2024 8:32 PM EDT LABORATORY [facility] MCHC 31.1 32.0 - 36.0 g/dL 05/03/2024 8:32 PM EDT LAB[facility] RDW 16.4 11.5 - 15.5 % 05/03/2024 8:32 PM EDT LABORATORY GM PLT 607(H) 140 - 400 K/uL 05/03/2024 8:32 PM EDT LABORATORY [facility] MPV 9.9 6.6 - 11.1 fL 05/03/2024 8:32 PM EDT LABORATORY [facility] nRBCs 0 <=0 /100 WBCs 05/03/2024 8:32 PM EDT LABORATORY [facility] Blood Venous blood specimen / Unknown Venipuncture / Unknown 05/03/2024 8:16 PM EDT 05/03/2024 8:23 PM EDT Miguelina Cain MD LAB BLOOD ORDERABLES LABORATORY [facility] [address] [place] [address] * XR CHEST 1 VIEW (05/02/2024 6:49 PM EDT) Anatomical Region Laterality Modality Chest Computed Radiogr aphy 05/02/2024 8:19 PM EDT Impressions 05/02/2024 8:16 PM EDT IMPRESSION No active disease in the chest. Narrative 05/02/2024 8:16 PM EDT EXAM XR CHEST 1 VIEW-05/02/2024 6:49 pm HISTORY self removed PICC line COMPARISON Chest radiograph 05/01/2024 TECHNIQUE Frontal radiograph of the chest was obtained. FINDINGS LINES/DEVICES: There is skin bill overlying the midline neck and chest. Previously seen right PICC line is no longer present. LUNGS/PLEURA: The lungs are clear. There is no pleural effusion or pneumothorax. CARDIOVASCULAR/MEDIASTINUM: The cardiomediastinal silhouette is within normal limits. OTHER: The upper abdomen is unremarkable. Procedure Note Nader Roach MD - 05/02/2024 EXAM XR CHEST 1 VIEW-05/02/2024 6:49 pm HISTORY self removed PICC line COMPARISON Chest radiograph 05/01/2024 TECHNIQUE Frontal radiograph of the chest was obtained. FINDINGS LINES/DEVICES: There is skin bill overlying the midline neck and chest.Previously seen right PICC line is no longer present. LUNGS/PLEURA: The lungs are clear. There is no pleural effusion orpneumothorax. CARDIOVASCULAR/MEDIASTINUM: The cardiomediastinal silhouette is withinnormal limits. OTHER: The upper abdomen is unremarkable. IMPRESSION IMPRESSION No active disease in the chest. Mery Kramer MD RADIOLOGY (RAD G ENERAL) * XR CHEST 1 VIEW (05/01/2024 4:00 PM EDT) Anatomical Region Laterality Modality Chest Computed Radiogr aphy 05/01/2024 4:07 PM EDT Impressions 05/01/2024 4:04 PM EDT IMPRESSION Tip of right-sided PICC line projects over the right atrium near the cavoatrial junction. Narrative 05/01/2024 4:04 PM EDT EXAM Chest 1 View - 05/01/2024 4:00 pm HISTORY verify PICC placement COMPARISON 04/20/2020 TECHNIQUE Portable semi-upright AP view of the chest was obtained. FINDINGS Lines and Tubes: Tip of right-sided PICC line projects over the right atrium near the cavoatrial junction. Foreign bodies: None. Left basilar retrocardiac airspace disease consistent with atelectasis. Right lung is clear. No pneumothorax. Pulmonary vascularity and cardiomediastinal silhouette are normal. Procedure Note Zi Flores, DO - 05/01/2024 EXAM Chest 1 View - 05/01/2024 4:00 pm HISTORY verify PICC placement COMPARISON 04/20/2020 TECHNIQUE Portable semi-upright AP view of the chest was obtained. FINDINGS Lines and Tubes: Tip of right-sided PICC line projects over the rightatrium near the cavoatrial junction. Foreign bodies: None. Left basilar retrocardiac airspace disease consistent with atelectasis.Right lung is clear. No pneumothorax. Pulmonary vascularity andcardiomediastinal silhouette are normal. IMPRESSION IMPRESSION Tip of right-sided PICC line projects over the right atrium near thecavoatrial junction. Mery Kramer MD RADIOLOGY (RAD G [facility]ERAL) * IR VENOUS ACCESS NON-MEDIPORT (05/01/2024 11:33 AM EDT) Anatomical Region Laterality Modality Any X-Ray Angiograph y 05/01/2024 11:4 6 AM EDT Impressions 05/02/2024 11:19 AM EDT IMPRESSION Successful placement of right arm PICC line for 4 Citizen Of [place], 38 cm Powerline PICC catheter with tip at the level of the SVC and right atrium junction. Plan: Catheter can be used. I have personally reviewed this examination and agree with the resident/fellow physician's interpretation. Narrative 05/02/2024 11:19 AM EDT PROCEDURE: 1. PICC Right arm INDICATION: Patient in need of antibiotics after epidural abscess decompression. OPERATING PHYSICIAN: Dr. James Lester CODER OPERATOR: Dr. Edwin Bangura CONSENT: After a detailed discussion of the procedure, risks, benefits and alternative treatment options, informed consent was obtained from the patient's sister. TIME OUT: A time out procedure was performed. The patient's identification was verified. Informed consent with agreement of procedure, site and position was obtained. All necessary equipment was available prior to procedure. CONTRAST: None COMPLICATIONS: None ANESTHESIA: Lidocaine 1% locally. MEDICATIONS: None PROCEDURE DESCRIPTION: The patient was placed in the supine position on the angiography table and connected to physiologic monitoring devices. The right arm and catheter site was then prepped and draped in usual sterile fashion. Ultrasound of the left arm was performed. One percent lidocaine was given for local anesthesia. Under ultrasound guidance cannulation of the basilic vein was attempted however the vein venous spasm. Subsequently, under ultrasound guidance the brachial vein was cannulated and after blood return 018 wire was advanced. Fjxm-[id number] peel-away sheath was placed. The length was measured and a new 4 Citizen [place], 38 cm, Power PICC was then advanced placing the tip at the level of the mid right atrium SVC junction. PICC was then checked for adequate flow and port primed with saline flush solution. The catheter was secured and dressed with sterile gauze applied. The patient tolerated the procedure well. FINDINGS: Ultrasound demonstrated patent and compressible basilic and brachial vein. Ultrasound guided needle placement in brachial vein. Fluoroscopic and Ultrasound guided right arm PICC placement and tip localization. Procedure Note James Lester MD - 05/02/2024 PROCEDURE: 1. PICC Right arm INDICATION: Patient in need of antibiotics after epidural abscessdecompression. OPERATING PHYSICIAN: Dr. James Lester CODER OPERATOR: Dr. Edwin Bangura CONSENT: After a detailed discussion of the procedure, risks, benefits andalternative treatment options, informed consent was obtained from thepatient's sister. TIME OUT: A time out procedure was performed. The patient'sidentification was verified. Informed consent with agreement of procedure,site and position was obtained. All necessary equipment was availableprior to procedure. CONTRAST: None COMPLICATIONS: None ANESTHESIA: Lidocaine 1% locally. MEDICATIONS: None PROCEDURE DESCRIPTION: The patient was placed in the supine position onthe angiography table and connected to physiologic monitoring devices.The right arm and catheter site was then prepped and draped in usualsterile fashion. Ultrasound of the left arm was performed. One percentlidocaine was given for local anesthesia. Under ultrasound guidancecannulation of the basilic vein was attempted however the vein venousspasm. Subsequently, under ultrasound guidance the brachial vein wascannulated and after blood return 018 wire was advanced. Rqbe-ira-zbupcvxe-away sheath was placed. The length was measured and a new 4 [place],38 cm, Power PICC was then advanced placing the tip at the level of themid right atrium SVC junction. PICC was then checked for adequate flow andport primed with saline flush solution. The catheter was secured anddressed with sterile gauze applied. The patient tolerated the procedurewell. FINDINGS: Ultrasound demonstrated patent and compressible basilic and brachialvein. Ultrasound guided needle placement in brachial vein. Fluoroscopic and Ultrasound guided right arm PICC placement and tiplocalization. IMPRESSION IMPRESSION Successful placement of right arm PICC line for 4 Citizen [place], 38 cmPowerline PICC catheter with tip at the level of the SVC and right atriumjunction. Plan: Catheter can be used. I have personally reviewed this examination and agree with the resident/fellow physician's interpretation. Modesta Diaz MD RAD SPECIAL PROCEDUR ES * ANE GS POWER PICC SINGLE PERFORMABLE (05/01/2024 11:28 AM EDT) Narrative James Lester MD - 05/01/2024 11:28 AM EDT James Lester MD 05/01/2024 1:03 PM PICC Placement General Information and Staff: Performed by: James Lester MD Assisted by: Edwin Bangura DO Procedure Date/Time: 05/01/2024 11:31 AM Patient Location: IR Indication: senior living vascular access Patient identity confirmed: Verbally with patient and arm band Verbal confirmation: MRN, name and date of Written consent obtained: Yes Consent given by: Power of attorney law clerk Understanding of procedure being performed: Yes Understanding of procedure matches verbalized consent: Yes Procedure consent matches procedure scheduled: Yes Allergies reviewed: Yes Site marked: n/a Verify correct position: Yes Radiology Studies available/reviewed: yes Relevant Lab Results available/reviewed: yes Required items available: yes Other healthcare professional(s) verbalize(s) agreement with time out: Yes Name(s): see timeout Time out: Immediately prior to the procedure a time out was completed Procedure Detail: Sterility Preparation: mask worn, sterile gloves worn, cap worn, sterile sheet used, sterile gown worn and full body drape Provider Hand Hygiene: alcohol-based hand rub Placement conditions: Elective Patient Position: Supine Prep: Chlorhexidine Catheter Type: Power PICC PICC Laterality: Right PICC Site: Arm PICC Vessel: Brachial Other: Bard PowerPICC Solo Catheter size: 4 fr Catheter Total Length (cm): 38 Catheter Internal Length (cm): 38 Catheter External Length (cm): 0 Lot Number: [id number] EXP: 2025-08-22 Number of Lumens: Single lumen Number of Needle Passes: 1 Placement: target vein identified, needle advanced into vein and blood aspirated and guidewire advanced into vein Radiologic Support with Sterile Technique: ultrasound guidance used and live fluoroscopy Sterile gel and probe cover used for ultrasound?: Yes Intravenous Verification: live fluoroscopy Outcomes/Complications: patient tolerated procedure well with no complications Estimated blood loss: minimal. Post Insertion: Post Insertion Details: all ports aspirated, all ports flushed easily, guidewire was removed, examined and appears intact, line was sutured in place and dressing was applied Site cleansed: Other (comment) Line secured with: Adhesive Securement Device Dressing applied: Gel Chlorhexidine Gluconate Tip Confirmation: Radiologic Tip Location: Line Ok to use James Lester MD ANESTHESIA * CALCIUM, IONIZED (04/30/2024 7:36 AM EDT) Calcium, Ionized 1.24 1.13 - 1.32 mmol/L 04/30/2024 8:03 AM EDT [facility] Comment:This test was develo ped and its performance characteristics dtermined by [employer]. It has not been cleared or approved by the [place] Food and Drug Administration Blood Venous blood specimen / Unknown Venipuncture / Unknown 04/30/2024 7:36 AM EDT 04/30/2024 7:51 AM EDT Modesta Diaz MD LAB BLOOD ORDERABLES [facility] [address] [place] [address] * CALCIUM, IONIZED (04/29/2024 6:39 AM EDT) Calcium, Ionized 1.24 1.13 - 1.32 mmol/L 04/29/2024 7:55 AM EDT [facility] Comment:This test was develo ped and its performance characteristics dtermined by [employer]. It has not been cleared or approved by the [place] Food and Drug Administration Blood Venous blood specimen / Unknown Venipuncture / Unknown 04/29/2024 6:39 AM EDT 04/29/2024 7:38 AM EDT Modesta Diaz MD LAB BLOOD ORDERABLES Performing Organization Address City/[facility]/ZIP Co de Phone Number LABORATORY [facility] [address] [place] [address] * PHOSPHORUS (04/29/2024 6:39 AM EDT) Phosphorus 3.4 2.5 - 4.8 mg/dL 04/29/2024 8:13 AM EDT [facility] Blood Venous blood specimen / Unknown Venipuncture / Unknown 04/29/2024 6:39 AM EDT 04/29/2024 7:44 AM EDT Modesta Diaz MD LAB BLOOD ORDERABLES Performing Organization Address [facility] de Phone Number [facility]ORY [facility] [address] [place] [address] * MAGNESIUM (04/29/2024 6:39 AM EDT) Magnesium 2.4 1.5 - 2.6 mg/dL 04/29/2024 8:13 AM EDT [facility] Blood Venous blood specimen / Unknown Venipuncture / Unknown 04/29/2024 6:39 AM EDT 04/29/2024 7:44 AM EDT Modesta Diaz MD LAB BLOOD ORDERABLES Performing Organization Address [facility] Co de Phone Number [facility] [address] [place] [address] * (ABNORMAL) CBC (04/29/2024 6:39 AM EDT) WBC 11.64(H) 4.00 - 10.80 K/uL 04/29/2024 7:54 AM EDT [facility] RBC 2.84 3.85 - 5.15 M/uL 04/29/2024 7:54 AM EDT [facility] HGB 8.6(L) 12.0 - 15.3 g/dL 04/29/2024 7:54 AM EDT [facility] HCT 27.0(L) 36.0 - 45.2 % 04/29/2024 7:54 AM EDT [facility] MCV 95.1 81.5 - 97.5 fL 04/29/2024 7:54 AM EDT [facility] MCH 30.3 27.0 - 34.0 pg 04/29/2024 7:54 AM EDT [facility] MCHC 31.9 32.0 - 36.0 g/dL 04/29/2024 7:54 AM EDT [facility] RDW 15.9 11.5 - 15.5 % 04/29/2024 7:54 AM EDT [facility] PLT 764(H) 140 - 400 K/uL 04/29/2024 7:54 AM EDT [facility] MPV 10.8 6.6 - 11.1 fL 04/29/2024 7:54 AM EDT [facility] nRBCs 0 <=0 /100 WBCs 04/29/2024 7:54 AM EDT [facility] Blood Venous blood specimen / Unknown Venipuncture / Unknown 04/29/2024 6:39 AM EDT 04/29/2024 7:44 AM EDT Modesta Diaz MD LAB BLOOD ORDERABLES [facility] [address] [place] [address] * (ABNORMAL) HEPATIC FUNCTION PANEL (04/29/2024 6:39 AM EDT) Albumin 2.8(L) 3.8 - 5.0 g/dL 04/29/2024 8:13 AM EDT [facility] AST 58(H) 10 - 35 U/L 04/29/2024 8:13 AM EDT [facility] Alkaline Phosphatase 158(H) 35 - 130 U/L 04/29/2024 8:13 AM EDT [facility] ALT 33 10 - 35 U/L 04/29/2024 8:13 AM EDT [facility] Bilirubin, Total 0.4 <=1.2 mg/dL 04/29/2024 8:13 AM EDT [facility] Bilirubin, Direct <0.2 0.0 - 0.3 mg/dL 04/29/2024 8:13 AM EDT [facility] Protein 5.8(L) 6.0 - 8.3 g/dL 04/29/2024 8:13 AM EDT [facility] Blood Venous blood specimen / Unknown Venipuncture / Unknown 04/29/2024 6:39 AM EDT 04/29/2024 7:44 AM EDT Modesta Diaz MD LAB BLOOD ORDERABLES [facility] [address] [place] [address] * (ABNORMAL) BASIC METABOLIC PANEL (04/29/2024 6:39 AM EDT) BUN 10 6 - 20 mg/dL 04/29/2024 8:13 AM EDT [facility] CREATININE 0.4(L) 0.5 - 1.0 mg/dL 04/29/2024 8:13 AM EDT [facility] EGFR >90 >=60 mL/min 04/29/2024 8:13 AM EDT [facility] Comment:eGFR is calculated b ased on the CKD-EPI 2020 equation. SODIUM 139 135 - 146 mmol/L 04/29/2024 8:13 AM EDT [facility] POTASSIUM 3.8 3.5 - 5.1 mmol/L 04/29/2024 8:13 AM EDT [facility] CHLORIDE 100 98 - 107 mmol/L 04/29/2024 8:13 AM EDT [facility] CO2 26 22 - 32 mmol/L 04/29/2024 8:13 AM EDT [facility] ANION GAP 13 7 - 15 mmol/L 04/29/2024 8:13 AM EDT [facility] GLUCOSE 85 70 - 120 mg/dL 04/29/2024 8:13 AM EDT [facility] CALCIUM 8.5 8.4 - 10.2 mg/dL 04/29/2024 8:13 AM EDT [facility] Blood Venous blood specimen / Unknown Venipuncture / Unknown 04/29/2024 6:39 AM EDT 04/29/2024 7:44 AM EDT Modesta Diaz MD LAB BLOOD ORDERABLES Performing Organization Address [facility] de Phone Number [facility] [address] [place] [address] * CALCIUM, IONIZED (04/28/2024 7:24 AM EDT) Calcium, Ionized 1.14 1.13 - 1.32 mmol/L 04/28/2024 8:30 AM EDT [facility] Comment:This test was develo ped and its performance characteristics dtermined by [employer]. It has not been cleared or approved by the [place] Food and Drug Administration Blood Venous blood specimen / Unknown Venipuncture / Unknown 04/28/2024 7:24 AM EDT 04/28/2024 8:07 AM EDT Modesta Diaz MD LAB BLOOD ORDERABLES Performing Organization Address [facility] de Phone Number [facility] [address] [place] [address] * PHOSPHORUS (04/28/2024 7:24 AM EDT) Phosphorus 2.7 2.5 - 4.8 mg/dL 04/28/2024 9:16 AM EDT [facility] Blood Venous blood specimen / Unknown Venipuncture / Unknown 04/28/2024 7:24 AM EDT 04/28/2024 8:07 AM EDT Modesta Diaz MD LAB BLOOD ORDERABLES Performing Organization Address City/[facility] de Phone Number [facility] [address] [place] [address] * MAGNESIUM (04/28/2024 7:24 AM EDT) Magnesium 2.5 1.5 - 2.6 mg/dL 04/28/2024 9:16 AM EDT [facility] Blood Venous blood specimen / Unknown Venipuncture / Unknown 04/28/2024 7:24 AM EDT 04/28/2024 8:07 AM EDT Modesta Diaz MD LAB BLOOD ORDERABLES [facility] [address] [facility] [place] [address] * (ABNORMAL) CBC (04/28/2024 7:24 AM EDT) WBC 14.49(H) 4.00 - 10.80 K/uL 04/28/2024 8:31 AM EDT [facility] RBC 2.89 3.85 - 5.15 M/uL 04/28/2024 8:31 AM EDT [facility] HGB 8.8(L) 12.0 - 15.3 g/dL 04/28/2024 8:31 AM EDT [facility] HCT 27.3(L) 36.0 - 45.2 % 04/28/2024 8:31 AM EDT [facility] MCV 94.5 81.5 - 97.5 fL 04/28/2024 8:31 AM EDT [facility] MCH 30.4 27.0 - 34.0 pg 04/28/2024 8:31 AM EDT [facility] MCHC 32.2 32.0 - 36.0 g/dL 04/28/2024 8:31 AM EDT [facility] RDW 15.9 11.5 - 15.5 % 04/28/2024 8:31 AM EDT [facility] PLT 680(H) 140 - 400 K/uL 04/28/2024 8:31 AM EDT [facility] MPV 11.1 6.6 - 11.1 fL 04/28/2024 8:31 AM EDT [facility] nRBCs 0 <=0 /100 WBCs 04/28/2024 8:31 AM EDT [facility] Blood Venous blood specimen / Unknown Venipuncture / Unknown 04/28/2024 7:24 AM EDT 04/28/2024 8:07 AM EDT Modesta Diaz MD LAB BLOOD ORDERABLES [facility] [address] [place] [address] * (ABNORMAL) HEPATIC FUNCTION PANEL (04/28/2024 7:24 AM EDT) Albumin 2.4(L) 3.8 - 5.0 g/dL 04/28/2024 9:16 AM EDT LABORATORY [facility] AST 55(H) 10 - 35 U/L 04/28/2024 9:16 AM EDT [facility] Comment:Results may be false ly elevated due to hemolysis. Alkaline Phosphatase 153(H) 35 - 130 U/L 04/28/2024 9:16 AM EDT [facility] ALT 33 10 - 35 U/L 04/28/2024 9:16 AM EDT [facility] Bilirubin, Total 0.4 <=1.2 mg/dL 04/28/2024 9:16 AM EDT [facility] Bilirubin, Direct <0.2 0.0 - 0.3 mg/dL 04/28/2024 9:16 AM EDT [facility] Comment:Result may be falsel y decreased due to hemolysis. Protein 5.5(L) 6.0 - 8.3 g/dL 04/28/2024 9:16 AM EDT [facility] Blood Venous blood specimen / Unknown Venipuncture / Unknown 04/28/2024 7:24 AM EDT 04/28/2024 8:07 AM EDT Modesta Diaz MD LAB BLOOD ORDERABLES [facility] [address] [place] [address] * BASIC METABOLIC PANEL (04/28/2024 7:24 AM EDT) BUN 10 6 - 20 mg/dL 04/28/2024 9:16 AM EDT [facility] CREATININE 0.5 0.5 - 1.0 mg/dL 04/28/2024 9:16 AM EDT [facility] EGFR >90 >=60 mL/min 04/28/2024 9:16 AM EDT [facility] Comment:eGFR is calculated b ased on the CKD-EPI 2020 equation. SODIUM 140 135 - 146 mmol/L 04/28/2024 9:16 AM EDT LAB[facility] POTASSIUM 4.3 3.5 - 5.1 mmol/L 04/28/2024 9:16 AM EDT LAB[facility] CHLORIDE 103 98 - 107 mmol/L 04/28/2024 9:16 AM EDT LAB[facility] CO2 26 22 - 32 mmol/L 04/28/2024 9:16 AM EDT LAB[facility] ANION GAP 11 7 - 15 mmol/L 04/28/2024 9:16 AM EDT LAB[facility] GLUCOSE 95 70 - 120 mg/dL 04/28/2024 9:16 AM EDT LAB[facility] CALCIUM 8.4 8.4 - 10.2 mg/dL 04/28/2024 9:16 AM EDT [facility] Blood Venous blood specimen / Unknown Venipuncture / Unknown 04/28/2024 7:24 AM EDT 04/28/2024 8:07 AM EDT Modesta Diaz MD LAB BLOOD ORDERABLES [facility] [address] [place] [address] * CT CHEST WO CONTRAST (04/27/2024 8:02 AM EDT) Anatomical Region Laterality Modality Chest, Body, Cardio Computed Martin ography 04/27/2024 9:11 AM EDT Impressions 04/27/2024 9:09 AM EDT IMPRESSION 1. New small right pleural effusion. 2. Small to moderate left pleural effusion, increased from 04/18/2024. There are loculated components noted along the left major fissure and in the posterior right upper hemithorax towards the apex. 3. Postoperative changes from laminectomy at T8-T10. Narrative 04/27/2024 9:09 AM EDT EXAM EXAM: CT CHEST WO CONTRAST DATE and TIME: 04/27/2024 8:02 am HISTORY CLINICAL INFORMATION: f/u left loculated pleural effusion seen on CT at [facility] TECHNIQUE Oral Contrast: Oral contrast was not administered. IV Contrast: No IV contrast used. Evaluation of the viscera and vasculature is limited due to the lack of IV contrast administration. COMPARISON Compared to a CT scan of the chest performed at [facility] on 04/18/2024. FINDINGS MEDIASTINUM AND BECCA: Evaluation of the chest for adenopathy, particularly the becca, is limited without the benefit of IV contrast.. There are small mediastinal lymph nodes which are not enlarged by size criteria. There is no gross hilar adenopathy. HEART: There is no pericardial effusion. LARGE AIRWAYS: Unremarkable LUNGS: There is some dependent atelectasis in the lungs. No significant pulmonary nodules, masses or infiltrates are identified. There are some tiny todd fissural nodules which probably represent intrapulmonary lymph nodes. PLEURA: There is a small right pleural effusion, new since 04/18/2024. There is a small to moderate left pleural effusion, increased from 04/18/2024. There are loculated components noted along the left major fissure and in the posterior right upper hemithorax towards the apex. CHEST WALL/SOFT TISSUES: There is no axillary lymphadenopathy. Soft tissue swelling with adjacent subcutaneous gas at the laminectomy site at T8-T10. Focus of subcutaneous gas posterior to T3 which are probably postoperative related as well. LINES AND DEVICES: None BONES: There are postoperative changes from laminectomy at T8-T10. There is paraspinal soft tissue swelling at T8-T10. Paraspinal soft tissue swelling at T9 is improved compared to 04/18/2024. VESSELS: The pulmonary artery is dilated, which may represent pulmonary arterial hypertension. UPPER ABDOMEN: Unremarkable Procedure Note Go, Mckinley Cid MD - 04/27/2024 EXAM EXAM: CT CHEST WO CONTRAST DATE and TIME: 04/27/2024 8:02 am HISTORY CLINICAL INFORMATION: f/u left loculated pleural effusion seen on CT atOS[facility] TECHNIQUE Oral Contrast: Oral contrast was not administered. IV Contrast: No IV contrast used. Evaluation of the viscera and vasculature is limited due to the lack of IVcontrast administration. COMPARISON Compared to a CT scan of the chest performed at [facility] on 04/18/2024. FINDINGS MEDIASTINUM AND BECCA: Evaluation of the chest for adenopathy, particularlythe becca, is limited without the benefit of IV contrast.. There are smallmediastinal lymph nodes which are not enlarged by size criteria. There isno gross hilar adenopathy. HEART: There is no pericardial effusion. LARGE AIRWAYS: Unremarkable LUNGS: There is some dependent atelectasis in the lungs. No significantpulmonary nodules, masses or infiltrates are identified. There are sometiny todd fissural nodules which probably represent intrapulmonary lymphnodes. PLEURA: There is a small right pleural effusion, new since 04/18/2024.There is a small to moderate left pleural effusion, increased from04/18/2024. There are loculated components noted along the left majorfissure and in the posterior right upper hemithorax towards the apex. CHEST WALL/SOFT TISSUES: There is no axillary lymphadenopathy. Softtissue swelling with adjacent subcutaneous gas at the laminectomy site atT8-T10. Focus of subcutaneous gas posterior to T3 which are probablypostoperative related as well. LINES AND DEVICES: None BONES: There are postoperative changes from laminectomy at T8-T10. Thereis paraspinal soft tissue swelling at T8-T10. Paraspinal soft tissueswelling at T9 is improved compared to 04/18/2024. VESSELS: The pulmonary artery is dilated, which may represent pulmonaryarterial hypertension. UPPER ABDOMEN: Unremarkable IMPRESSION IMPRESSION 1. New small right pleural effusion. 2. Small to moderate left pleural effusion, increased from 04/18/2024.There are loculated components noted along the left major fissure and inthe posterior right upper hemithorax towards the apex. 3. Postoperative changes from laminectomy at T8-T10. Mery Kramer MD RAD CT * CALCIUM, IONIZED (04/27/2024 7:33 AM EDT) Calcium, Ionized 1.14 1.13 - 1.32 mmol/L 04/27/2024 8:04 AM EDT [facility] Comment:This test was develo ped and its performance characteristics dtermined by [employer]. It has not been cleared or approved by the [place] Food and Drug Administration Blood Venous blood specimen / Unknown Venipuncture / Unknown 04/27/2024 7:33 AM EDT 04/27/2024 7:54 AM EDT Modesta Diaz MD LAB BLOOD ORDERABLES Performing Organization Address City/State/[facility] Co de Phone Number [facility] [address] [place] [address] * (ABNORMAL) PHOSPHORUS (04/27/2024 7:33 AM EDT) Phosphorus 2.4(L) 2.5 - 4.8 mg/dL 04/27/2024 8:24 AM EDT [facility] Blood Venous blood specimen / Unknown Venipuncture / Unknown 04/27/2024 7:33 AM EDT 04/27/2024 7:55 AM EDT Modesta Diaz MD LAB BLOOD ORDERABLES Performing Organization Address [facility] Co de Phone Number [facility]ORY [facility] [address] [place] [address] * MAGNESIUM (04/27/2024 7:33 AM EDT) Magnesium 2.4 1.5 - 2.6 mg/dL 04/27/2024 8:24 AM EDT [facility] Blood Venous blood specimen / Unknown Venipuncture / Unknown 04/27/2024 7:33 AM EDT 04/27/2024 7:55 AM EDT Modesta Diaz MD LAB BLOOD ORDERABLES Performing Organization Address [facility] de Phone Number [facility] [address] [place] [address] * (ABNORMAL) CBC (04/27/2024 7:33 AM EDT) WBC 18.90(H) 4.00 - 10.80 K/uL 04/27/2024 8:05 AM EDT [facility] RBC 2.90 3.85 - 5.15 M/uL 04/27/2024 8:05 AM EDT [facility] HGB 8.8(L) 12.0 - 15.3 g/dL 04/27/2024 8:05 AM EDT [facility] HCT 27.4(L) 36.0 - 45.2 % 04/27/2024 8:05 AM EDT [facility] MCV 94.5 81.5 - 97.5 fL 04/27/2024 8:05 AM EDT [facility] MCH 30.3 27.0 - 34.0 pg 04/27/2024 8:05 AM EDT LABOR[facility] MCHC 32.1 32.0 - 36.0 g/dL 04/27/2024 8:05 AM EDT [facility] RDW 15.6 11.5 - 15.5 % 04/27/2024 8:05 AM EDT LABORATORY GM PLT 770(H) 140 - 400 K/uL 04/27/2024 8:05 AM EDT [facility] MPV 10.2 6.6 - 11.1 fL 04/27/2024 8:05 AM EDT LAB[facility]ORY [facility] nRBCs 0 <=0 /100 WBCs 04/27/2024 8:05 AM EDT [facility] Blood Venous blood specimen / Unknown Venipuncture / Unknown 04/27/2024 7:33 AM EDT 04/27/2024 7:54 AM EDT Modesta Diaz MD LAB BLOOD ORDERABLES LABORATORY [facility] [address] [place] [address] * (ABNORMAL) HEPATIC FUNCTION PANEL (04/27/2024 7:33 AM EDT) Albumin 2.8(L) 3.8 - 5.0 g/dL 04/27/2024 8:24 AM EDT LABORATORY [facility] AST 49(H) 10 - 35 U/L 04/27/2024 8:24 AM EDT LABORATORY [facility] Alkaline Phosphatase 160(H) 35 - 130 U/L 04/27/2024 8:24 AM EDT LABORATORY [facility] ALT 34 10 - 35 U/L 04/27/2024 8:24 AM EDT LABORATORY [facility] Bilirubin, Total 0.5 <=1.2 mg/dL 04/27/2024 8:24 AM EDT LABORATORY [facility] Bilirubin, Direct 0.2 0.0 - 0.3 mg/dL 04/27/2024 8:24 AM EDT LABORATORY [facility] Protein 5.6(L) 6.0 - 8.3 g/dL 04/27/2024 8:24 AM EDT LABORATORY [facility] Blood Venous blood specimen / Unknown Venipuncture / Unknown 04/27/2024 7:33 AM EDT 04/27/2024 7:55 AM EDT Modesta Diaz MD LAB BLOOD ORDERABLES LABORATORY C [address] [place] [address] * (ABNORMAL) BASIC METABOLIC PANEL (04/27/2024 7:33 AM EDT) BUN 13 6 - 20 mg/dL 04/27/2024 8:24 AM EDT LABORATORY [facility] CREATININE 0.5 0.5 - 1.0 mg/dL 04/27/2024 8:24 AM EDT LABORATORY [facility] EGFR >90 >=60 mL/min 04/27/2024 8:24 AM EDT LABORATORY [facility] Comment:eGFR is calculated b ased on the CKD-EPI 2020 equation. SODIUM 139 135 - 146 mmol/L 04/27/2024 8:24 AM EDT LABORATORY [facility] POTASSIUM 3.8 3.5 - 5.1 mmol/L 04/27/2024 8:24 AM EDT LABORATORY [facility] CHLORIDE 101 98 - 107 mmol/L 04/27/2024 8:24 AM EDT LABORATORY [facility] CO2 25 22 - 32 mmol/L 04/27/2024 8:24 AM EDT LABORATORY [facility] ANION GAP 13 7 - 15 mmol/L 04/27/2024 8:24 AM EDT LABORATORY [facility] GLUCOSE 83 70 - 120 mg/dL 04/27/2024 8:24 AM EDT LABORATORY [facility] CALCIUM 8.3(L) 8.4 - 10.2 mg/dL 04/27/2024 8:24 AM EDT LABORATORY [facility] Blood Venous blood specimen / Unknown Venipuncture / Unknown 04/27/2024 7:33 AM EDT 04/27/2024 7:55 AM EDT Modesta Diaz MD LAB BLOOD ORDERABLES LABORATORY [facility] [address] [place] [address] * CALCIUM, IONIZED (04/26/2024 9:16 AM EDT) Calcium, Ionized 1.18 1.13 - 1.32 mmol/L 04/26/2024 10:00 AM EDT LABORATORY [facility] Comment:This test was develo ped and its performance characteristics dtermined by [employer]. It has not been cleared or approved by the [place] Food and Drug Administration Blood Venous blood specimen / Unknown Venipuncture / Unknown 04/26/2024 9:16 AM EDT 04/26/2024 9:37 AM EDT Modesta Diaz MD LAB BLOOD ORDERABLES Performing Organization Address [facility] Phone Number LABORATORY [facility] [address] [place] [address] * (ABNORMAL) VANCOMYCIN RANDOM (04/26/2024 9:16 AM EDT) Vancomycin Random 7.4(L) 10.0 - 40.0 ug/mL 04/26/2024 10:24 AM EDT LABORATORY [facility] Blood Venous blood specimen / Unknown Venipuncture / Unknown 04/26/2024 9:16 AM EDT 04/26/2024 9:37 AM EDT Modesta Diaz MD LAB BLOOD ORDERABLES Performing Organization Address [facility] de Phone Number LABORATORY [facility] [address] [place] [address] * (ABNORMAL) PHOSPHORUS (04/26/2024 9:16 AM EDT) Phosphorus 2.1(L) 2.5 - 4.8 mg/dL 04/26/2024 10:24 AM EDT LABORATORY [facility] Blood Venous blood specimen / Unknown Venipuncture / Unknown 04/26/2024 9:16 AM EDT 04/26/2024 9:37 AM EDT Modesta Diaz MD LAB BLOOD ORDERABLES Performing Organization Address City/[facility]/ZIP Co de Phone Number LABORATORY [facility] [address] [place] [address] * MAGNESIUM (04/26/2024 9:16 AM EDT) Pathologist [facility] Magnesium 2.4 1.5 - 2.6 mg/dL 04/26/2024 10:24 AM EDT LABORATORY [facility] Blood Venous blood specimen / Unknown Venipuncture / Unknown 04/26/2024 9:16 AM EDT 04/26/2024 9:37 AM EDT Modesta Diaz MD LAB BLOOD ORDERABLES Performing Organization Address City/[facility] Co de Phone Number LABORATORY [facility] [address] [place] [address] * (ABNORMAL) CBC (04/26/2024 9:16 AM EDT) Pathologist [facility] WBC 20.20(H) 4.00 - 10.80 K/uL 04/26/2024 10:08 AM EDT LABORATORY [facility] RBC 3.09 3.85 - 5.15 M/uL 04/26/2024 10:08 AM EDT LABORATORY [facility] HGB 9.4(L) 12.0 - 15.3 g/dL 04/26/2024 10:08 AM EDT LABORATORY [facility] HCT 28.7(L) 36.0 - 45.2 % 04/26/2024 10:08 AM EDT LABORATORY [facility] MCV 92.9 81.5 - 97.5 fL 04/26/2024 10:08 AM EDT LABORATORY [facility] MCH 30.4 27.0 - 34.0 pg 04/26/2024 10:08 AM EDT LABORATORY [facility] MCHC 32.8 32.0 - 36.0 g/dL 04/26/2024 10:08 AM EDT LABORATORY [facility] RDW 15.4 11.5 - 15.5 % 04/26/2024 10:08 AM EDT LABORATORY [facility] PLT 752(H) 140 - 400 K/uL 04/26/2024 10:08 AM EDT LABORATORY [facility] MPV 10.4 6.6 - 11.1 fL 04/26/2024 10:08 AM EDT LABORATORY [facility] nRBCs 0 <=0 /100 WBCs 04/26/2024 10:08 AM EDT LABORATORY [facility] Blood Venous blood specimen / Unknown Venipuncture / Unknown 04/26/2024 9:16 AM EDT 04/26/2024 9:37 AM EDT Modesta Diaz MD LAB BLOOD ORDERABLES Performing Organization Address City/[facility]/ZIP Co de Phone Number LABORATORY [facility] [address] [place] [address] * (ABNORMAL) HEPATIC FUNCTION PANEL (04/26/2024 9:16 AM EDT) Albumin 2.7(L) 3.8 - 5.0 g/dL 04/26/2024 10:24 AM EDT LABORATORY [facility] AST 58(H) 10 - 35 U/L 04/26/2024 10:24 AM EDT LABORATORY [facility] Alkaline Phosphatase 172(H) 35 - 130 U/L 04/26/2024 10:24 AM EDT LABORATORY [facility] ALT 48(H) 10 - 35 U/L 04/26/2024 10:24 AM EDT LABORATORY [facility] Bilirubin, Total 0.6 <=1.2 mg/dL 04/26/2024 10:24 AM EDT LABORATORY [facility] Bilirubin, Direct 0.2 0.0 - 0.3 mg/dL 04/26/2024 10:24 AM EDT LABORATORY [facility] Protein 5.6(L) 6.0 - 8.3 g/dL 04/26/2024 10:24 AM EDT LABORATORY [facility] Blood Venous blood specimen / Unknown Venipuncture / Unknown 04/26/2024 9:16 AM EDT 04/26/2024 9:37 AM EDT Modesta Diaz MD LAB BLOOD ORDERABLES Performing Organization Address City/[facility]/ZIP Co de Phone Number LABORATORY [facility] [address] [place] [address] * BASIC METABOLIC PANEL (04/26/2024 9:16 AM EDT) BUN 10 6 - 20 mg/dL 04/26/2024 10:24 AM EDT LABORATORY [facility] CREATININE 0.5 0.5 - 1.0 mg/dL 04/26/2024 10:24 AM EDT LABORATORY [facility] EGFR >90 >=60 mL/min 04/26/2024 10:24 AM EDT LABORATORY [facility] Comment:eGFR is calculated b ased on the CKD-EPI 2020 equation. SODIUM 139 135 - 146 mmol/L 04/26/2024 10:24 AM EDT LABORATORY [facility] POTASSIUM 3.8 3.5 - 5.1 mmol/L 04/26/2024 10:24 AM EDT LABORATORY [facility] CHLORIDE 101 98 - 107 mmol/L 04/26/2024 10:24 AM EDT LABORATORY C CO2 28 22 - 32 mmol/L 04/26/2024 10:24 AM EDT LABORATORY C ANION GAP 10 7 - 15 mmol/L 04/26/2024 10:24 AM EDT LABORATORY C GLUCOSE 96 70 - 120 mg/dL 04/26/2024 10:24 AM EDT LABORATORY C CALCIUM 8.4 8.4 - 10.2 mg/dL 04/26/2024 10:24 AM EDT LABORATORY [facility] Blood Venous blood specimen / Unknown Venipuncture / Unknown 04/26/2024 9:16 AM EDT 04/26/2024 9:37 AM EDT Modetsa Diaz MD LAB BLOOD ORDERABLES Performing Organization Address City/State/[facility] Co de Phone Number LABORATORY [facility] [address] [place] [address] * US ABDOMEN LIMITED (04/26/2024 8:48 AM EDT) Anatomical Region Laterality Modality Abdomen, Body Ultrasound 04/26/2024 9:14 AM EDT Impressions 04/26/2024 9:12 AM EDT IMPRESSION 1. Sludge in gallbladder. No evidence of acute cholecystitis. 2. Small fluid collection adjacent to lower pole right kidney nonspecific. Narrative 04/26/2024 9:12 AM EDT EXAM US ABDOMEN LIMITED-04/26/2024 8:48 am HISTORY RUQ US for abnormal LFTs TECHNIQUE Sonogram of the right upper quadrant. COMPARISON None FINDINGS LIVER: Normal size and echogenicity with no mass. BILE DUCTS: No intrahepatic or extrahepatic duct dilatation. The common bile duct measures 4 mm. GALLBLADDER: Sludge. No gallstones, gallbladder wall thickening or pericholecystic fluid. PANCREAS: Visualized portions are unremarkable. RIGHT KIDNEY: 10.1 cm in length. Normal size, parenchymal thickness and echogenicity. No hydronephrosis, shadowing calculi, or focal lesion. Small fluid collection adjacent to lower pole nonspecific. OTHER: No ascites. Procedure Note Blaise Kirkland MD - 04/26/2024 EXAM US ABDOMEN LIMITED-04/26/2024 8:48 am HISTORY RUQ US for abnormal LFTs TECHNIQUE Sonogram of the right upper quadrant. COMPARISON None FINDINGS LIVER: Normal size and echogenicity with no mass. BILE DUCTS: No intrahepatic or extrahepatic duct dilatation. The commonbile duct measures 4 mm. GALLBLADDER: Sludge. No gallstones, gallbladder wall thickening orpericholecystic fluid. PANCREAS: Visualized portions are unremarkable. RIGHT KIDNEY: 10.1 cm in length. Normal size, parenchymal thickness andechogenicity. No hydronephrosis, shadowing calculi, or focal lesion.Small fluid collection adjacent to lower pole nonspecific. OTHER: No ascites. IMPRESSION IMPRESSION 1. Sludge in gallbladder. No evidence of acute cholecystitis. 2. Small fluid collection adjacent to lower pole right kidneynonspecific. Mery Kramer MD RAD ULTRASOUND * TRANSESOPHAGEAL ECHO (COMPLETE) (04/25/2024 5:12 PM EDT) LEFT VENTRICULAR EJECTION FRACTION 55 % [facility] 04/25/2024 2:26 PM EDT Modesta Diaz MD ECHOCARDIOLOGY [facility] * (ABNORMAL) URINALYSIS, REFLEX TO CULTURE (04/25/2024 12:46 PM EDT) Color, Urine Light Yellow Colorless, Light Yellow, Yellow, Dark Yellow 04/25/2024 1:33 PM EDT LABORATORY [facility] Clarity, Urine Clear Clear 04/25/2024 1:33 PM EDT LABORATORY C Glucose, Urine Negative Negative mg/dL 04/25/2024 1:33 PM EDT LABORATORY [facility] Bilirubin, Urine Negative Negative 04/25/2024 1:33 PM EDT LABORATORY [facility] Ketone, Urine 40(A) Negative mg/dL 04/25/2024 1:33 PM EDT LABORATORY C Specific [place], Urine 1.016 1.003 - 1.030 04/25/2024 1:33 PM EDT LABORATORY [facility] Blood, Urine Negative Negative 04/25/2024 1:33 PM EDT LABORATORY C pH, Urine 7.0 5.0 - 7.5 Units 04/25/2024 1:33 PM EDT LABORATORY [facility] Protein, Urine Trace(A) Negative mg/dL 04/25/2024 1:33 PM EDT LABORATORY [facility] Urobilinogen, Urine Normal Normal mg/dL 04/25/2024 1:33 PM EDT LABORATORY [facility] Nitrite, Urine Negative Negative 04/25/2024 1:33 PM EDT LABORATORY C Esterase, Urine Negative Negative 04/25/2024 1:33 PM EDT LABORATORY C RBC, Urine 0-2 0 - 2 /HPF 04/25/2024 1:33 PM EDT LABORATORY [facility] WBC, Urine 3-5(A) 0 - 2 /HPF 04/25/2024 1:33 PM EDT LABORATORY [facility] Bacteria, Urine 0-25 0 - 25 /HPF 04/25/2024 1:33 PM EDT LABORATORY [facility] Culture, Urine 04/25/2024 1:33 PM EDT LABORATORY [facility] Comment:Culture not indicate d by urinalysis results Urine Urine specimen / Unknown Non-blood Collection / Unknown 04/25/2024 12:46 PM EDT 04/25/2024 1:12 PM EDT Modesta Diaz MD LAB URINE ORDERABLES LABORATORY [facility] [address] [place] [address] * URINALYSIS, REFLEX TO CULTURE (CUP ONLY) (04/25/2024 12:46 PM EDT) Urinalysis, Reflex to Culture Specimen Specimen collected and received 04/25/2024 3:01 PM EDT LABORATORY [facility] Urine Urine specimen / Unknown Non-blood Collection / Unknown 04/25/2024 12:46 PM EDT 04/25/2024 1:12 PM EDT Modesta Diaz MD LAB URINE ORDERABLES Performing Organization Address [facility] de Phone Number LABORATORY [facility] [address] [place] [address] * CALCIUM, IONIZED (04/25/2024 6:34 AM EDT) Pathologist [facility] Calcium, Ionized 1.14 1.13 - 1.32 mmol/L 04/25/2024 6:52 AM EDT LABORATORY [facility] Comment:This test was develo ped and its performance characteristics dtermined by [employer]. It has not been cleared or approved by the [place] Food and Drug Administration Blood Venous blood specimen / Unknown Venipuncture / Unknown 04/25/2024 6:34 AM EDT 04/25/2024 6:41 AM EDT Modesta Diaz MD LAB BLOOD ORDERABLES Performing Organization Address [facility] Phone Number LABORATORY [facility] [address] [place] [address] * (ABNORMAL) PHOSPHORUS (04/25/2024 6:34 AM EDT) Pathologist [facility] Phosphorus 2.2(L) 2.5 - 4.8 mg/dL 04/25/2024 7:51 AM EDT LABORATORY [facility] Blood Venous blood specimen / Unknown Venipuncture / Unknown 04/25/2024 6:34 AM EDT 04/25/2024 6:41 AM EDT Modesta Diaz MD LAB BLOOD ORDERABLES Performing Organization Address [facility] de Phone Number LABORATORY [facility] [address] [place] [address] * MAGNESIUM (04/25/2024 6:34 AM EDT) Magnesium 2.2 1.5 - 2.6 mg/dL 04/25/2024 7:51 AM EDT LABORATORY [facility] Blood Venous blood specimen / Unknown Venipuncture / Unknown 04/25/2024 6:34 AM EDT 04/25/2024 6:41 AM EDT Modesta Diaz MD LAB BLOOD ORDERABLES LABORATORY [facility] [address] [place] [address] * (ABNORMAL) CBC (04/25/2024 6:34 AM EDT) Pathologist [facility] WBC 23.48(H) 4.00 - 10.80 K/uL 04/25/2024 6:54 AM EDT LABORATORY [facility] RBC 2.83 3.85 - 5.15 M/uL 04/25/2024 6:54 AM EDT LABORATORY [facility] HGB 8.8(L) 12.0 - 15.3 g/dL 04/25/2024 6:54 AM EDT LABORATORY [facility] HCT 25.6(L) 36.0 - 45.2 % 04/25/2024 6:54 AM EDT LABORATORY [facility] MCV 90.5 81.5 - 97.5 fL 04/25/2024 6:54 AM EDT LABORATORY [facility] MCH 31.1 27.0 - 34.0 pg 04/25/2024 6:54 AM EDT LABORATORY [facility] MCHC 34.4 32.0 - 36.0 g/dL 04/25/2024 6:54 AM EDT LABORATORY [facility] RDW 15.4 11.5 - 15.5 % 04/25/2024 6:54 AM EDT LABORATORY [facility] PLT 545(H) 140 - 400 K/uL 04/25/2024 6:54 AM EDT LABORATORY [facility] MPV 9.8 6.6 - 11.1 fL 04/25/2024 6:54 AM EDT LABORATORY [facility] nRBCs 0 <=0 /100 WBCs 04/25/2024 6:54 AM EDT LABORATORY [facility] Blood Venous blood specimen / Unknown Venipuncture / Unknown 04/25/2024 6:34 AM EDT 04/25/2024 6:41 AM EDT Modesta Diaz MD LAB BLOOD ORDERABLES Performing Organization Address City/[facility]/ZIP Co de Phone Number LABORATORY [facility] [address] [place] [address] * (ABNORMAL) HEPATIC FUNCTION PANEL (04/25/2024 6:34 AM EDT) Albumin 2.7(L) 3.8 - 5.0 g/dL 04/25/2024 7:51 AM EDT LABORATORY [facility] AST 64(H) 10 - 35 U/L 04/25/2024 7:51 AM EDT LABORATORY [facility] Alkaline Phosphatase 197(H) 35 - 130 U/L 04/25/2024 7:51 AM EDT LABORATORY [facility] ALT 48(H) 10 - 35 U/L 04/25/2024 7:51 AM EDT LABORATORY [facility] Bilirubin, Total 0.7 <=1.2 mg/dL 04/25/2024 7:51 AM EDT LABORATORY [facility] Bilirubin, Direct 0.3 0.0 - 0.3 mg/dL 04/25/2024 7:51 AM EDT LABORATORY [facility] Protein 5.3(L) 6.0 - 8.3 g/dL 04/25/2024 7:51 AM EDT LABORATORY [facility] Blood Venous blood specimen / Unknown Venipuncture / Unknown 04/25/2024 6:34 AM EDT 04/25/2024 6:41 AM EDT Modesta Diaz MD LAB BLOOD ORDERABLES LABORATORY [facility] [address] [place] [address] * (ABNORMAL) BASIC METABOLIC PANEL (04/25/2024 6:34 AM EDT) BUN 11 6 - 20 mg/dL 04/25/2024 7:51 AM EDT LABORATORY [facility] CREATININE 0.5 0.5 - 1.0 mg/dL 04/25/2024 7:51 AM EDT LABORATORY [facility] EGFR >90 >=60 mL/min 04/25/2024 7:51 AM EDT LABORATORY [facility] Comment:eGFR is calculated b ased on the CKD-EPI 2020 equation. SODIUM 135 135 - 146 mmol/L 04/25/2024 7:51 AM EDT LABORATORY [facility] POTASSIUM 3.7 3.5 - 5.1 mmol/L 04/25/2024 7:51 AM EDT LABORATORY [facility] CHLORIDE 100 98 - 107 mmol/L 04/25/2024 7:51 AM EDT LABORATORY [facility] CO2 25 22 - 32 mmol/L 04/25/2024 7:51 AM EDT LABORATORY [facility] ANION GAP 10 7 - 15 mmol/L 04/25/2024 7:51 AM EDT LABORATORY [facility] GLUCOSE 101 70 - 120 mg/dL 04/25/2024 7:51 AM EDT LABORATORY [facility] CALCIUM 7.9(L) 8.4 - 10.2 mg/dL 04/25/2024 7:51 AM EDT LABORATORY [facility] Blood Venous blood specimen / Unknown Venipuncture / Unknown 04/25/2024 6:34 AM EDT 04/25/2024 6:41 AM EDT Modesta Diaz MD LAB BLOOD ORDERABLES LABORATORY [facility] [address] [place] [address] * (ABNORMAL) PHOSPHORUS (04/24/2024 12:37 PM EDT) Phosphorus 2.1(L) 2.5 - 4.8 mg/dL 04/24/2024 1:08 PM EDT LABORATORY [facility] Blood Capillary blood specimen / Unknown Capillary / Unknown 04/24/2024 12:37 PM EDT 04/24/2024 12:45 PM EDT Modesta Diaz MD LAB BLOOD ORDERABLES LABORATORY [facility] [address] [place] [address] * (ABNORMAL) CALCIUM, IONIZED (04/24/2024 3:48 AM EDT) Calcium, Ionized 1.11(L) 1.13 - 1.32 mmol/L 04/24/2024 4:09 AM EDT LABORATORY [facility] Comment:This test was develo ped and its performance characteristics dtermined by [employer]. It has not been cleared or approved by the [place] Food and Drug Administration Blood Venous blood specimen / Unknown Venipuncture / Unknown 04/24/2024 3:48 AM EDT 04/24/2024 3:54 AM EDT Modesta Diaz MD LAB BLOOD ORDERABLES Performing Organization Address [facility] de Phone Number LABORATORY [facility] [address] [place] [address] * (ABNORMAL) VANCOMYCIN PEAK (04/24/2024 3:48 AM EDT) Vancomycin Peak 25.3(L) 30.0 - 40.0 ug/mL 04/24/2024 4:29 AM EDT LABORATORY [facility] Blood Venous blood specimen / Unknown Venipuncture / Unknown 04/24/2024 3:48 AM EDT 04/24/2024 3:54 AM EDT Modesta Diaz MD LAB BLOOD ORDERABLES Performing Organization Address [facility] de Phone Number LABORATORY [facility] [address] [place] [address] * (ABNORMAL) PHOSPHORUS (04/24/2024 3:48 AM EDT) Phosphorus 1.4(L) 2.5 - 4.8 mg/dL 04/24/2024 4:29 AM EDT LABORATORY [facility] Blood Venous blood specimen / Unknown Venipuncture / Unknown 04/24/2024 3:48 AM EDT 04/24/2024 3:54 AM EDT Modesta Diaz MD LAB BLOOD ORDERABLES Performing Organization Address [facility]/ZIP Co de Phone Number LABORATORY [facility] [address] [place] [address] * MAGNESIUM (04/24/2024 3:48 AM EDT) Pathologist [facility] Magnesium 2.2 1.5 - 2.6 mg/dL 04/24/2024 4:29 AM EDT LABORATORY GM Blood Venous blood specimen / Unknown Venipuncture / Unknown 04/24/2024 3:48 AM EDT 04/24/2024 3:54 AM EDT Modesta Diaz MD LAB BLOOD ORDERABLES Performing Organization Address [facility]/ZIP Co de Phone Number LABORATORY [facility] [address] [place] [address] * (ABNORMAL) CBC (04/24/2024 3:48 AM EDT) Pathologist [facility] WBC 26.74(H) 4.00 - 10.80 K/uL 04/24/2024 4:06 AM EDT LABORATORY [facility] RBC 2.73 3.85 - 5.15 M/uL 04/24/2024 4:06 AM EDT LABORATORY [facility] HGB 8.3(L) 12.0 - 15.3 g/dL 04/24/2024 4:06 AM EDT LABORATORY [facility] HCT 24.6(L) 36.0 - 45.2 % 04/24/2024 4:06 AM EDT LABORATORY [facility] MCV 90.1 81.5 - 97.5 fL 04/24/2024 4:06 AM EDT LABORATORY [facility] MCH 30.4 27.0 - 34.0 pg 04/24/2024 4:06 AM EDT LABORATORY [facility] MCHC 33.7 32.0 - 36.0 g/dL 04/24/2024 4:06 AM EDT LABORATORY [facility] RDW 14.9 11.5 - 15.5 % 04/24/2024 4:06 AM EDT LABORATORY [facility] PLT 449(H) 140 - 400 K/uL 04/24/2024 4:06 AM EDT LABORATORY [facility] MPV 9.9 6.6 - 11.1 fL 04/24/2024 4:06 AM EDT LABORATORY [facility] nRBCs 0 <=0 /100 WBCs 04/24/2024 4:06 AM EDT LABORATORY C Blood Venous blood specimen / Unknown Venipuncture / Unknown 04/24/2024 3:48 AM EDT 04/24/2024 3:54 AM EDT Modesta Diaz MD LAB BLOOD ORDERABLES Performing Organization Address [facility] de Phone Number LABORATORY [facility] [address] [place] [address] * (ABNORMAL) HEPATIC FUNCTION PANEL (04/24/2024 3:48 AM EDT) Albumin 2.5(L) 3.8 - 5.0 g/dL 04/24/2024 4:29 AM EDT LABORATORY [facility] AST 35 10 - 35 U/L 04/24/2024 4:29 AM EDT LABORATORY [facility] Alkaline Phosphatase 140(H) 35 - 130 U/L 04/24/2024 4:29 AM EDT LABORATORY [facility] ALT 38(H) 10 - 35 U/L 04/24/2024 4:29 AM EDT LABORATORY [facility] Bilirubin, Total 0.7 <=1.2 mg/dL 04/24/2024 4:29 AM EDT LABORATORY [facility] Bilirubin, Direct 0.3 0.0 - 0.3 mg/dL 04/24/2024 4:29 AM EDT LABORATORY [facility] Protein 4.8(L) 6.0 - 8.3 g/dL 04/24/2024 4:29 AM EDT LABORATORY C Blood Venous blood specimen / Unknown Venipuncture / Unknown 04/24/2024 3:48 AM EDT 04/24/2024 3:54 AM EDT Modesta Diaz MD LAB BLOOD ORDERABLES Performing Organization Address [facility] Co de Phone Number LABORATORY [facility] [address] [place] [address] * (ABNORMAL) BASIC METABOLIC PANEL (04/24/2024 3:48 AM EDT) BUN 13 6 - 20 mg/dL 04/24/2024 4:29 AM EDT LABORATORY [facility] CREATININE 0.5 0.5 - 1.0 mg/dL 04/24/2024 4:29 AM EDT LABORATORY [facility] EGFR >90 >=60 mL/min 04/24/2024 4:29 AM EDT LABORATORY [facility] Comment:eGFR is calculated b ased on the CKD-EPI 2020 equation. SODIUM 139 135 - 146 mmol/L 04/24/2024 4:29 AM EDT LABORATORY [facility] POTASSIUM 4.3 3.5 - 5.1 mmol/L 04/24/2024 4:29 AM EDT LABORATORY [facility] CHLORIDE 105 98 - 107 mmol/L 04/24/2024 4:29 AM EDT LABORATORY [facility] CO2 27 22 - 32 mmol/L 04/24/2024 4:29 AM EDT LABORATORY [facility] ANION GAP 7 7 - 15 mmol/L 04/24/2024 4:29 AM EDT LABORATORY [facility] GLUCOSE 128(H) 70 - 120 mg/dL 04/24/2024 4:29 AM EDT LABORATORY [facility] CALCIUM 7.7(L) 8.4 - 10.2 mg/dL 04/24/2024 4:29 AM EDT LABORATORY C Blood Venous blood specimen / Unknown Venipuncture / Unknown 04/24/2024 3:48 AM EDT 04/24/2024 3:54 AM EDT Modesta Diaz MD LAB BLOOD ORDERABLES LABORATORY [facility] [address] [place] [address] * EKG (04/23/2024 2:27 PM EDT) 04/23/2024 2:27 PM EDT Narrative Procedure Note Davide Vargas DO - 04/23/2024 2:27 PM EDT REASON FOR STUDY: Tachycardia CONCLUSIONS: Sinus tachycardia Ventricular Rate: 108 Atrial Rate: 108 IN Interval: 122 QRS Duration: 82 QT/QTc: 334/447 ms P-R-T Somers: 56 : 23 : 53 degrees Modseta Diaz MD EKG [facility] * XR ABDOMEN 1 VIEW (04/23/2024 9:54 AM EDT) Anatomical Region Laterality Modality Abdomen, Pelvis Computed Radiogr aphy 04/23/2024 11:0 6 AM EDT Impressions 04/23/2024 11:03 AM EDT IMPRESSION 1. Likely postoperative ileus. Continued follow-up recommended. Narrative 04/23/2024 11:03 AM EDT EXAM XR ABDOMEN 1 VIEW-04/23/2024 9:54 am HISTORY addominal distention assess for bowel dilation. COMPARISON Abdomen 04/20/2024 TECHNIQUE Portable AP supine film of the abdomen was obtained FINDINGS There is gas in large and small bowel. Radiopaque densities are noted in the left abdomen may be ingested material. Midline bill overlie the lower chest and epigastric region Procedure Note Bess Montoya MD - 04/23/2024 EXAM XR ABDOMEN 1 VIEW-04/23/2024 9:54 am HISTORY addominal distention assess for bowel dilation. COMPARISON Abdomen 04/20/2024 TECHNIQUE Portable AP supine film of the abdomen was obtained FINDINGS There is gas in large and small bowel. Radiopaque densities are noted inthe left abdomen may be ingested material. Midline bill overlie thelower chest and epigastric region IMPRESSION IMPRESSION 1. Likely postoperative ileus. Continued follow-up recommended. Ne Arreaga MD RADIOLOGY (RAD GENER AL) * CULTURE, BLOOD (04/23/2024 9:23 AM EDT) Blood Culture Growth No growth 04/28/2024 10:01 AM EDT LABORATORY GM Blood Venous blood specimen / Unknown Venipuncture / Unknown 04/23/2024 9:23 AM EDT 04/23/2024 9:56 AM EDT Oneal To DO LAB MICRO - GENERAL ORDERABLES LABORATORY [facility] [address] [place] [address] * CULTURE, BLOOD (04/23/2024 9:21 AM EDT) Pathologist [facility] Blood Culture Growth No growth 04/28/2024 10:01 AM EDT LABORATORY [facility] [place] Venous blood specimen / Unknown Venipuncture / Unknown 04/23/2024 9:21 AM EDT 04/23/2024 9:56 AM EDT Oneal Nathan DO LAB MICRO - GENERAL ORDERABLES LABORATORY [facility] [facility] [address] [place] [address] * TSH WITH FREE T4 IF INDICATED (04/23/2024 5:31 AM EDT) [facility] TSH 2.44 0.27 - 4.20 uIU/mL 04/23/2024 2:52 PM EDT LAB[facility] Blood Arterial blood specimen / Unknown Arterial Line / Unknown 04/23/2024 5:31 AM EDT 04/23/2024 5:40 AM EDT Modesta Diaz MD LAB BLOOD ORDERABLES Performing Organization Address City/[facility]/ZIP Co de Phone Number LAB[facility]ATORY [facility] [address] [place] [address] * VANCOMYCIN RANDOM (04/23/2024 5:31 AM EDT) [facility] Vancomycin Random 10.7 10.0 - 40.0 ug/mL 04/23/2024 7:26 AM EDT [facility] Blood Arterial blood specimen / Unknown Arterial Line / Unknown 04/23/2024 5:31 AM EDT 04/23/2024 5:40 AM EDT Ne Arreaga MD LAB BLOOD ORDERABLES [facility] [address] [place] [address] * (ABNORMAL) CALCIUM, IONIZED (04/23/2024 5:31 AM EDT) Calcium, Ionized 1.12(L) 1.13 - 1.32 mmol/L 04/23/2024 6:32 AM EDT [facility] Comment:This test was develo ped and its performance characteristics dtermined by [employer]. It has not been cleared or approved by the [place] Food and Drug Administration Blood Arterial blood specimen / Unknown Arterial Line / Unknown 04/23/2024 5:31 AM EDT 04/23/2024 5:40 AM EDT Modesta Diaz MD LAB BLOOD ORDERABLES Performing Organization Address [facility]/ZIP Co de Phone Number [facility]ATORY [facility] [address] [place] [address] * PHOSPHORUS (04/23/2024 5:31 AM EDT) Pathologist [facility] Phosphorus 3.2 2.5 - 4.8 mg/dL 04/23/2024 6:10 AM EDT LAB[facility] Blood Arterial blood specimen / Unknown Arterial Line / Unknown 04/23/2024 5:31 AM EDT 04/23/2024 5:40 AM EDT Modesta Diaz MD LAB BLOOD ORDERABLES Performing Organization Address [facility] Co de Phone Number [facility]ATORY [facility] [address] [place] [address] * MAGNESIUM (04/23/2024 5:31 AM EDT) Pathologist [facility] Magnesium 2.5 1.5 - 2.6 mg/dL 04/23/2024 6:10 AM EDT LAB[facility] Blood Arterial blood specimen / Unknown Arterial Line / Unknown 04/23/2024 5:31 AM EDT 04/23/2024 5:40 AM EDT Modesta Diaz MD LAB BLOOD ORDERABLES Performing Organization Address City/[facility] Co de Phone Number [facility]ORY [facility] [address] [place] [address] * (ABNORMAL) CBC (04/23/2024 5:31 AM EDT) WBC 29.10(H) 4.00 - 10.80 K/uL 04/23/2024 5:55 AM EDT LAB[facility]ATORY [facility] RBC 2.91 3.85 - 5.15 M/uL 04/23/2024 5:55 AM EDT LAB[facility]ORY [facility] HGB 8.9(L) 12.0 - 15.3 g/dL 04/23/2024 5:55 AM EDT [facility] HCT 26.5(L) 36.0 - 45.2 % 04/23/2024 5:55 AM EDT [facility] MCV 91.1 81.5 - 97.5 fL 04/23/2024 5:55 AM EDT [facility] MCH 30.6 27.0 - 34.0 pg 04/23/2024 5:55 AM EDT [facility] MCHC 33.6 32.0 - 36.0 g/dL 04/23/2024 5:55 AM EDT [facility] RDW 15.1 11.5 - 15.5 % 04/23/2024 5:55 AM EDT [facility] PLT 374 140 - 400 K/uL 04/23/2024 5:55 AM EDT [facility] MPV 10.0 6.6 - 11.1 fL 04/23/2024 5:55 AM EDT [facility] nRBCs 0 <=0 /100 WBCs 04/23/2024 5:55 AM EDT [facility] Blood Arterial blood specimen / Unknown Arterial Line / Unknown 04/23/2024 5:31 AM EDT 04/23/2024 5:40 AM EDT Modesta Diaz MD LAB BLOOD ORDERABLES LABORATORY [facility] [address] [place] [address] * (ABNORMAL) HEPATIC FUNCTION PANEL (04/23/2024 5:31 AM EDT) Albumin 2.9(L) 3.8 - 5.0 g/dL 04/23/2024 6:10 AM EDT [facility] AST 38(H) 10 - 35 U/L 04/23/2024 6:10 AM EDT [facility] Alkaline Phosphatase 165(H) 35 - 130 U/L 04/23/2024 6:10 AM EDT [facility] ALT 46(H) 10 - 35 U/L 04/23/2024 6:10 AM EDT [facility] Bilirubin, Total 0.8 <=1.2 mg/dL 04/23/2024 6:10 AM EDT LAB[facility] Bilirubin, Direct 0.4(H) 0.0 - 0.3 mg/dL 04/23/2024 6:10 AM EDT [facility] Protein 5.3(L) 6.0 - 8.3 g/dL 04/23/2024 6:10 AM EDT LAB[facility] Blood Arterial blood specimen / Unknown Arterial Line / Unknown 04/23/2024 5:31 AM EDT 04/23/2024 5:40 AM EDT Modesta Diaz MD LAB BLOOD ORDERABLES [facility] [address] [place] [address] * (ABNORMAL) BASIC METABOLIC PANEL (04/23/2024 5:31 AM EDT) BUN 16 6 - 20 mg/dL 04/23/2024 6:10 AM EDT [facility] CREATININE 0.5 0.5 - 1.0 mg/dL 04/23/2024 6:10 AM EDT LAB[facility]ATORY [facility] EGFR >90 >=60 mL/min 04/23/2024 6:10 AM EDT LAB[facility]ATORY [facility] Comment:eGFR is calculated b ased on the CKD-EPI 2020 equation. SODIUM 142 135 - 146 mmol/L 04/23/2024 6:10 AM EDT LAB[facility] POTASSIUM 3.8 3.5 - 5.1 mmol/L 04/23/2024 6:10 AM EDT [facility] CHLORIDE 105 98 - 107 mmol/L 04/23/2024 6:10 AM EDT [facility] CO2 24 22 - 32 mmol/L 04/23/2024 6:10 AM EDT [facility] ANION GAP 13 7 - 15 mmol/L 04/23/2024 6:10 AM EDT LAB[facility] GLUCOSE 122(H) 70 - 120 mg/dL 04/23/2024 6:10 AM EDT LAB[facility] CALCIUM 8.1(L) 8.4 - 10.2 mg/dL 04/23/2024 6:10 AM EDT LAB[facility] Blood Arterial blood specimen / Unknown Arterial Line / Unknown 04/23/2024 5:31 AM EDT 04/23/2024 5:40 AM EDT Modesta Diaz MD LAB BLOOD ORDERABLES [facility] [address] [place] [address] * HEPATITIS C RNA ADD ON (04/22/2024 8:53 PM EDT) Blood Arterial blood specimen / Unknown Arterial Line / Unknown 04/22/2024 8:53 PM EDT 04/22/2024 9:06 PM EDT David Russo MD LAB BLOOD ORDER BRENDA Performing Organization Address City/[facility]/ZIP Co de Phone Number [facility]ATORY [facility] [address] [place] [address] * HEPATITIS C ANTIBODY (04/22/2024 8:53 PM EDT) [facility] Hepatitis C Antibody Negative Negative 04/22/2024 9:50 PM EDT LAB[facility] Comment:Further HCV quantita tive testing not performed per protocol. Blood Arterial blood specimen / Unknown Arterial Line / Unknown 04/22/2024 8:53 PM EDT 04/22/2024 9:06 PM EDT David Russo MD LAB BLOOD ORDER BRENDA Performing Organization Address City/[facility]/ZIP Co de Phone Number [facility] [address] [place] [address] * CALCIUM, IONIZED (04/22/2024 7:43 PM EDT) [facility] Calcium, Ionized 1.19 1.13 - 1.32 mmol/L 04/22/2024 8:22 PM EDT LAB[facility] Comment:This test was develo ped and its performance characteristics dtermined by [employer]. It has not been cleared or approved by the [place] Food and Drug Administration Blood Arterial blood specimen / Unknown Arterial Line / Unknown 04/22/2024 7:43 PM EDT 04/22/2024 7:48 PM EDT Modesta Diaz MD LAB BLOOD ORDERABLES [facility] [address] [place] [address] * HEPATITIS B CORE ANTIBODIES IGG AND IGM (04/22/2024 7:38 PM EDT) Hepatitis B Core Antibodies IgG and IgM Negative Negative 04/23/2024 4:33 AM EDT LAB[facility] Blood Arterial blood specimen / Unknown Arterial Line / Unknown 04/22/2024 7:38 PM EDT 04/22/2024 7:48 PM EDT David Russo MD LAB BLOOD ORDER BRENDA Performing Organization Address City/[facility] Co de Phone Number [facility]ATORY [facility] [address] [place] [address] * HEPATITIS B CORE ANTIBODY IGM (04/22/2024 7:38 PM EDT) Pathologist [facility] Hepatitis B Core Antibody IgM Negative Negative 04/23/2024 2:36 AM EDT LAB[facility] Blood Arterial blood specimen / Unknown Arterial Line / Unknown 04/22/2024 7:38 PM EDT 04/22/2024 7:48 PM EDT David Russo MD LAB BLOOD ORDER BRENDA Performing Organization Address City/[facility] Co de Phone Number [facility]ORY [facility] [address] [place] [address] * HEPATITIS B SURFACE ANTIBODY (04/22/2024 7:38 PM EDT) Pathologist [facility] Hepatitis B Surface Antibody, Quantitative <3.5 mIU/mL 04/23/2024 2:36 AM EDT LAB[facility] Hepatitis B Surface Antibody, Qualitative Negative 04/23/2024 2:36 AM EDT LAB[facility] Hepatitis B Surface Antibody, Interpretation NOT immune to Hepatitis B Virus 04/23/2024 2:36 AM EDT LABOR[facility] Comment: POSITIVE: >=11.5 mIU/mL INDETERMINATE: 8.5-<11.5 mIU/mL NEGATIVE: <8.5 mIU/mL Blood Arterial blood specimen / Unknown Arterial Line / Unknown 04/22/2024 7:38 PM EDT 04/22/2024 7:48 PM EDT David Russo MD LAB BLOOD ORDER BRENDA Performing Organization Address City/[facility]/ZIP Co de Phone Number [facility]ORY [facility] [address] [place] [address] * HEPATITIS B SURFACE ANTIGEN (04/22/2024 7:38 PM EDT) Hepatitis B Surface Antigen Negative Negative 04/23/2024 4:30 AM EDT LAB[facility] Blood Arterial blood specimen / Unknown Arterial Line / Unknown 04/22/2024 7:38 PM EDT 04/22/2024 7:48 PM EDT David Russo MD LAB BLOOD ORDER BRENDA Performing Organization Address City/[facility] Co de Phone Number LABORATORY [place] [address] [place] [address] * HIV ANTIGEN & ANTIBODY SCREEN W/ CONFIRMATION (04/22/2024 7:38 PM EDT) HIV Antigen & Antibody Negative Negative 04/23/2024 4:56 AM EDT LAB[facility]ORY [facility] Comment:Negative HIV-1/2 ant igen and antibody screening tset results usually indicate the absence of HIV-1 and HIV-2 infection. However, such negative results do not rule-out acute HIV infection. If acute HIV-1 infection is highly suspected, it is recommended that a specimen be submitted for detection of HIV-1 RNA. Blood Arterial blood specimen / Unknown Arterial Line / Unknown 04/22/2024 7:38 PM EDT 04/22/2024 7:48 PM EDT David Russo MD LAB BLOOD ORDER BRENDA LAB[facility]AT[facility] [address] [place] [address] * (ABNORMAL) DIFFERENTIAL, AUTOMATED (04/22/2024 7:38 PM EDT) WBC 31.86(H) 4.00 - 10.80 K/uL 04/22/2024 7:58 PM EDT LAB[facility]ORY [facility] Neutrophils % 79.4(H) 40.0 - 75.0 % 04/22/2024 7:58 PM EDT [facility] Lymphocytes % 3.2(L) 18.0 - 42.0 % 04/22/2024 7:58 PM EDT [facility] Monocytes % 4.3 1.0 - 11.0 % 04/22/2024 7:58 PM EDT [facility] Eosinophils % 0.1 0.0 - 6.0 % 04/22/2024 7:58 PM EDT [facility] Basophils % 0.4 0.0 - 2.0 % 04/22/2024 7:58 PM EDT [facility] Immature Granulocytes % 12.6(H) 0.0 - 2.0 % 04/22/2024 7:58 PM EDT LAB[facility] Absolute Neutrophils 25.26(H) 1.80 - 7.70 K/uL 04/22/2024 7:58 PM EDT LAB[facility] Absolute Lymphocytes 1.02 1.00 - 4.80 K/ul 04/22/2024 7:58 PM EDT LAB[facility] Absolute Monocytes 1.38(H) 0.00 - 1.10 K/uL 04/22/2024 7:58 PM EDT LAB[facility] Absolute Eosinophils 0.04 0.00 - 0.70 K/uL 04/22/2024 7:58 PM EDT LAB[facility] Absolute Basophils 0.14 0.00 - 0.20 K/uL 04/22/2024 7:58 PM EDT LAB[facility] Absolute Immature Granulocytes 4.02(H) 0.00 - 0.20 K/uL 04/22/2024 7:58 PM EDT LAB[facility] Blood Arterial blood specimen / Unknown Arterial Line / Unknown 04/22/2024 7:38 PM EDT 04/22/2024 7:48 PM EDT Manuel Martinez MD LAB BLOOD ORDERABLES LABORATORY [facility] [address] [place] [address] * (ABNORMAL) CBC (04/22/2024 7:38 PM EDT) WBC 31.86(H) 4.00 - 10.80 K/uL 04/22/2024 7:58 PM EDT LAB[facility] RBC 3.06 3.85 - 5.15 M/uL 04/22/2024 7:58 PM EDT LAB[facility] HGB 9.1(L) 12.0 - 15.3 g/dL 04/22/2024 7:58 PM EDT LAB[facility] HCT 28.3(L) 36.0 - 45.2 % 04/22/2024 7:58 PM EDT [facility] MCV 92.5 81.5 - 97.5 fL 04/22/2024 7:58 PM EDT LAB[facility] MCH 29.7 27.0 - 34.0 pg 04/22/2024 7:58 PM EDT [facility] MCHC 32.2 32.0 - 36.0 g/dL 04/22/2024 7:58 PM EDT [facility] RDW 15.3 11.5 - 15.5 % 04/22/2024 7:58 PM EDT LAB[facility] PLT 334 140 - 400 K/uL 04/22/2024 7:58 PM EDT [facility] MPV 9.9 6.6 - 11.1 fL 04/22/2024 7:58 PM EDT LAB[facility] nRBCs 0 <=0 /100 WBCs 04/22/2024 7:58 PM EDT LAB[facility] Blood Arterial blood specimen / Unknown Arterial Line / Unknown 04/22/2024 7:38 PM EDT 04/22/2024 7:48 PM EDT Manuel Martinez MD LAB BLOOD ORDERABLES Performing Organization Address [facility] Co de Phone Number [facility]ORY [facility] [address] [place] [address] * ACUTE HEPATITIS PANEL (04/22/2024 7:38 PM EDT) Pathologist [facility] Hepatitis A Antibody IgM Negative Negative 04/23/2024 4:30 AM EDT [facility] Hepatitis B Core Antibody IgM Negative Negative 04/23/2024 4:30 AM EDT LAB[facility] Hepatitis B Surface Antigen Negative Negative 04/23/2024 4:30 AM EDT [facility] Hepatitis C Antibody Negative Negative 04/23/2024 4:30 AM EDT [facility] Blood Arterial blood specimen / Unknown Arterial Line / Unknown 04/22/2024 7:38 PM EDT 04/22/2024 7:48 PM EDT Manuel Martinez MD LAB BLOOD ORDERABLES Performing Organization Address [facility] de Phone Number [facility]ATORY [facility] [address] [place] [address] * (ABNORMAL) BASIC METABOLIC PANEL (04/22/2024 7:38 PM EDT) Pathologist [facility] BUN 14 6 - 20 mg/dL 04/22/2024 8:18 PM EDT LAB[facility] CREATININE 0.5 0.5 - 1.0 mg/dL 04/22/2024 8:18 PM EDT LAB[facility] EGFR >90 >=60 mL/min 04/22/2024 8:18 PM EDT LAB[facility] Comment:eGFR is calculated b ased on the CKD-EPI 2020 equation. SODIUM 139 135 - 146 mmol/L 04/22/2024 8:18 PM EDT LAB[facility] POTASSIUM 3.8 3.5 - 5.1 mmol/L 04/22/2024 8:18 PM EDT [facility] CHLORIDE 100 98 - 107 mmol/L 04/22/2024 8:18 PM EDT [facility] CO2 21(L) 22 - 32 mmol/L 04/22/2024 8:18 PM EDT [facility] ANION GAP 18(H) 7 - 15 mmol/L 04/22/2024 8:18 PM EDT [facility] GLUCOSE 131(H) 70 - 120 mg/dL 04/22/2024 8:18 PM EDT [facility] CALCIUM 8.2(L) 8.4 - 10.2 mg/dL 04/22/2024 8:18 PM EDT LAB[facility] Blood Arterial blood specimen / Unknown Arterial Line / Unknown 04/22/2024 7:38 PM EDT 04/22/2024 7:48 PM EDT Manuel Martinez MD LAB BLOOD ORDERABLES Performing Organization Address [facility] Co de Phone Number [facility]ATORY [facility] [address] [place] [address] * CULTURE, WOUND, DEEP, AEROBIC AND ANAEROBIC (04/22/2024 6:04 PM EDT) Culture Growth No aerobic or anaerobic growth 04/27/2024 9:21 AM EDT LAB[facility]ATORY [facility] Stain Description No polymorphonuclear leukocytes seen 04/27/2024 9:21 AM EDT LAB[facility] Stain Description No squamous epithelial cells seen 04/27/2024 9:21 AM EDT LAB[facility] Stain Description No organisms seen 04/27/2024 9:21 AM EDT LAB[facility] Deep Wound Thoracic spine structure / Unknown 04/22/2024 6:04 PM EDT 04/22/2024 6:40 PM EDT Bhanu Montero MD LAB MICRO - GENERAL ORDERABLES Performing Organization Address City/[facility]/ZIP Co de Phone Number [facility]ATORY [facility] [address] [place] [address] * CULTURE,FUNGUS,NON-DERM (04/22/2024 6:04 PM EDT) Culture Growth No fungus isolated 05/15/2024 8:52 AM EDT LAB[facility] Stain Description No yeast or hyphae seen. 05/15/2024 8:52 AM EDT LAB[facility] Deep Wound Thoracic spine structure / Unknown 04/22/2024 6:04 PM EDT 04/22/2024 6:39 PM EDT Bhanu Montero MD LAB MICRO - GENERAL ORDERABLES Performing Organization Address City/[facility]/ZIP Co de Phone Number LABORATORY [facility] [address] [place] [address] * CULTURE, WOUND, DEEP, AEROBIC AND ANAEROBIC (04/22/2024 5:51 PM EDT) Culture Growth No aerobic or anaerobic growth 04/27/2024 9:20 AM EDT LAB[facility] Stain Description No polymorphonuclear leukocytes seen 04/27/2024 9:20 AM EDT LAB[facility] Stain Description No squamous epithelial cells seen 04/27/2024 9:20 AM EDT LAB[facility] Stain Description No organisms seen 04/27/2024 9:20 AM EDT LAB[facility] Deep Wound Cervical spinal cord structure / Unknown 04/22/2024 5:51 PM EDT 04/22/2024 6:36 PM EDT Bhanu Montero MD LAB MICRO - GENERAL ORDERABLES Performing Organization Address City/[facility] Co de Phone Number LABORATORY [facility] [address] [place] [address] * CULTURE,FUNGUS,NON-DERM (04/22/2024 5:51 PM EDT) Culture Growth No fungus isolated 05/15/2024 8:52 AM EDT LAB[facility]ATORY [facility] Stain Description No yeast or hyphae seen. 05/15/2024 8:52 AM EDT LAB[facility] Deep Wound Cervical spinal cord structure / Unknown 04/22/2024 5:51 PM EDT 04/22/2024 6:36 PM EDT Bhanu Montero MD LAB MICRO - GENERAL ORDERABLES Performing Organization Address City/[facility]/ZIP Co de Phone Number LABORATORY [facility] [address] [place] [address] * XR INTRA-OP C-ARM CASE (04/22/2024 5:47 PM EDT) Narrative Scheduling, Silent - 04/22/2024 5:55 PM EDT This procedure will not be read by a Radiologist. Please see operative note. Bhanu Montero MD RADIOLOGY ( [facility]) * ABO/RH (04/22/2024 2:45 PM EDT) ABO O 04/22/2024 4:12 PM EDT LAB[facility]ORY [facility] BLOOD BANK Rh Positive 04/22/2024 4:12 PM EDT LAB[facility]ORY [facility] Blood Venous blood specimen / Unknown Venipuncture / Unknown 04/22/2024 2:45 PM EDT 04/22/2024 2:51 PM EDT Sharona [email or web address] LAB BLOOD BANK TEST ORDERABLES Performing Organization Address City/[facility] Co de Phone Number LABORATORY [facility] [address] [place] [address] * TYPE AND SCREEN (04/22/2024 2:45 PM EDT) ABO O 04/22/2024 3:35 PM EDT LABORATORY [facility] Rh Positive 04/22/2024 3:35 PM EDT LABORATORY [facility] Red Blood Cell Antibody Screen Negative 04/22/2024 3:35 PM EDT LABORATORY [facility] Specimen Expiration Date 04/25/2024 23:59 04/22/2024 3:35 PM EDT LABORATORY [facility] Blood Venous blood specimen / Unknown Venipuncture / Unknown 04/22/2024 2:45 PM EDT 04/22/2024 2:51 PM EDT [facility] LAB BLOOD BANK TEST ORDERABLES Performing Organization Address City/[facility] Co de Phone Number LABORATORY [facility] [address] [place] [address] * MRI BRAIN W WO CONTRAST (04/22/2024 2:11 PM EDT) Anatomical Region Laterality Modality Neuro, Head Magnetic Resonan ce 04/22/2024 2:39 PM EDT Impressions 04/22/2024 2:37 PM EDT IMPRESSION 1. No evidence for intracranial extension of the abscess. 2. Diffuse T1 hypointensity in the calvarium is nonspecific and may relate to red marrow conversion. Correlate with CBC. Narrative 04/22/2024 2:37 PM EDT EXAM MRI BRAIN W WO CONTRAST-04/22/2024 2:11 pm HISTORY rule out brain extension TECHNIQUE Axial T2, FLAIR, GRE, DWI, ADC, T1, sagittal T1, post contrast axial sagittal and coronal views are obtained. Coronal postcontrast MPRAGE images are obtained and reconstructed in sagittal and axial planes. COMPARISON 2023 FINDINGS There is no evidence for intracranial extension of the abscess. Abscess in the upper cervical spine is again noted. Minimal fluid in the mastoid air cells bilaterally. No restricted diffusion. Diffuse T1 hypointensity in the calvarium. No abnormal leptomeningeal enhancement. Ventricles are normal. Orbits and paranasal sinuses are normal. Each TMJ is normal. Calvarium is normal. Procedure Note Papa Aaron MD - 04/22/2024 EXAM MRI BRAIN W WO CONTRAST-04/22/2024 2:11 pm HISTORY rule out brain extension TECHNIQUE Axial T2, FLAIR, GRE, DWI, ADC, T1, sagittal T1, post contrast axialsagittal and coronal views are obtained. Coronal postcontrast MPRAGEimages are obtained and reconstructed in sagittal and axial planes. COMPARISON 2023 FINDINGS There is no evidence for intracranial extension of the abscess. Abscessin the upper cervical spine is again noted. Minimal fluid in the mastoidair cells bilaterally. No restricted diffusion. Diffuse T1 hypointensityin the calvarium. No abnormal leptomeningeal enhancement. Ventricles arenormal. Orbits and paranasal sinuses are normal. Each TMJ is normal.Calvarium is normal. IMPRESSION IMPRESSION 1. No evidence for intracranial extension of the abscess. 2. Diffuse T1 hypointensity in the calvarium is nonspecific and may relateto red marrow conversion. Correlate with CBC. Modesta Diaz MD RAD MRI-[facility] * (ABNORMAL) CBC (04/22/2024 12:10 PM EDT) WBC 31.02(H) 4.00 - 10.80 K/uL 04/22/2024 12:37 PM EDT LAB[facility] RBC 3.76 3.85 - 5.15 M/uL 04/22/2024 12:37 PM EDT LAB[facility] HGB 11.3(L) 12.0 - 15.3 g/dL 04/22/2024 12:37 PM EDT LAB[facility] HCT 34.5(L) 36.0 - 45.2 % 04/22/2024 12:37 PM EDT LAB[facility] MCV 91.8 81.5 - 97.5 fL 04/22/2024 12:37 PM EDT LAB[facility] MCH 30.1 27.0 - 34.0 pg 04/22/2024 12:37 PM EDT LAB[facility] MCHC 32.8 32.0 - 36.0 g/dL 04/22/2024 12:37 PM EDT LAB[facility] RDW 15.1 11.5 - 15.5 % 04/22/2024 12:37 PM EDT [facility] PLT 359 140 - 400 K/uL 04/22/2024 12:37 PM EDT [facility] MPV 10.1 6.6 - 11.1 fL 04/22/2024 12:37 PM EDT LAB[facility] nRBCs 0 <=0 /100 WBCs 04/22/2024 12:37 PM EDT [facility] Blood Venous blood specimen / Unknown Venipuncture / Unknown 04/22/2024 12:10 PM EDT 04/22/2024 12:21 PM EDT Modesta Diaz MD LAB BLOOD ORDERABLES [facility] [address] [place] [address] * APTT (04/22/2024 12:09 PM EDT) Pathologist [facility] aPTT 31 21 - 38 seconds 04/22/2024 2:05 PM EDT LAB[facility]AT[facility] Blood Venous blood specimen / Unknown Venipuncture / Unknown 04/22/2024 12:09 PM EDT 04/22/2024 12:21 PM EDT Narrative [facility]AT[facility] [place] 04/22/2024 2:05 PM EDT Anticoagulation may affect testing. Refer to [facility] Test Catalog for a list of effects. Sharona Hill DO LAB BLOOD ORDERABLES Performing Organization Address [facility] Co de Phone Number [facility]ATORY [facility] [address] [place] [address] * (ABNORMAL) PT INR (04/22/2024 12:09 PM EDT) Prothrombin Time 15.5(H) 11.6 - 15.2 seconds 04/22/2024 12:49 PM EDT [facility] INR 1.2 0.8 - 1.2 04/22/2024 12:49 PM EDT [facility] Blood Venous blood specimen / Unknown Venipuncture / Unknown 04/22/2024 12:09 PM EDT 04/22/2024 12:21 PM EDT Narrative [facility]AT[facility] [place] 04/22/2024 12:49 PM EDT Warfarin Therapy INR: 2.0-3.0 conventional anticoagulation INR: 2.5-3.5 high intensity anticoagulation Modesta Diaz MD LAB BLOOD ORDERABLES Performing Organization Address [facility] Co de Phone Number [facility]ORATORY [facility] [address] [place] [address] * (ABNORMAL) COMPREHENSIVE METABOLIC PANEL (04/22/2024 12:09 PM EDT) BUN 14 6 - 20 mg/dL 04/22/2024 12:55 PM EDT LABORATORY [facility] [facility] CREATININE 0.5 0.5 - 1.0 mg/dL 04/22/2024 12:55 PM EDT [facility] [place] >90 >=60 mL/min 04/22/2024 12:55 PM EDT [facility] Comment:eGFR is calculated b ased on the CKD-EPI 2020 equation. SODIUM 141 135 - 146 mmol/L 04/22/2024 12:55 PM EDT [facility] POTASSIUM 3.5 3.5 - 5.1 mmol/L 04/22/2024 12:55 PM EDT [facility] CHLORIDE 101 98 - 107 mmol/L 04/22/2024 12:55 PM EDT [facility] CO2 24 22 - 32 mmol/L 04/22/2024 12:55 PM EDT [facility] ANION GAP 16(H) 7 - 15 mmol/L 04/22/2024 12:55 PM EDT [facility] GLUCOSE 96 70 - 120 mg/dL 04/22/2024 12:55 PM EDT [facility] Albumin 2.6(L) 3.8 - 5.0 g/dL 04/22/2024 12:55 PM EDT [facility] AST 58(H) 10 - 35 U/L 04/22/2024 12:55 PM EDT [facility] Comment:Results may be false ly elevated due to hemolysis. Alkaline Phosphatase 223(H) 35 - 130 U/L 04/22/2024 12:55 PM EDT [facility] Bilirubin, Total 1.1 <=1.2 mg/dL 04/22/2024 12:55 PM EDT [facility] CALCIUM 8.4 8.4 - 10.2 mg/dL 04/22/2024 12:55 PM EDT [facility] Protein 5.8(L) 6.0 - 8.3 g/dL 04/22/2024 12:55 PM EDT [facility] ALT 67(H) 10 - 35 U/L 04/22/2024 12:55 PM EDT [facility] Blood Venous blood specimen / Unknown Venipuncture / Unknown 04/22/2024 12:09 PM EDT 04/22/2024 12:21 PM EDT Modesta Diaz MD LAB BLOOD ORDERABLES [facility] [address] [place] [address] * MRI C SPINE W WO CONTRAST (04/22/2024 1:05 AM EDT) Anatomical Region Laterality Modality Vertebra, Spine Magnetic Resonan ce 04/22/2024 4:04 AM EDT Narrative 04/22/2024 4:01 AM EDT EXAM: 1. MRI CERVICAL SPINE WITHOUT AND WITH CONTRAST 2. MRI THORACIC SPINE WITHOUT AND WITH CONTRAST 3. MRI LUMBAR SPINE WITHOUT AND WITH CONTRAST HISTORY: spinal epidural abscess, osteomyelitis COMPARISON: 04/18/2024 TECHNIQUE: 1. Multiplanar multisequence MRI of the cervical spine without and with intravenous contrast was performed and reviewed. 2. Multiplanar multisequence MRI of the thoracic spine without and with intravenous contrast was performed and reviewed. 3. Multiplanar multisequence MRI of the lumbar spine without and with intravenous contrast was performed and reviewed. Type and volume of intravenous contrast reported separately by radiologic technologist. FINDINGS: There is a ventral epidural abscess. It starts at the skull base posterior to the dens and extends from the cervical spine to the thoracic spine and then through the lumbar spine terminating at the L1-L2 disc space. It measures up to 8 mm in thickness and is most pronounced in the cervical spine. Within the lumbosacral spine there is a dorsal epidural abscess as well, it extends from the inferior aspect of L3 through the superior aspect of S1. It measures up to 11 mm in thickness. Similar to recent CT there is an enhancing intradural mass within the thoracic spine at T3-T4. It is ovoid shaped and demonstrates solid enhancement and there is resultant severe compression of the spinal cord particularly in conjunction with the epidural abscess present at this location as well. It measures approximately 9 x 12 x 17 mm is difficult to assess for presence of an enhancing dural tail given the extensive adjacent enhancing dura from the epidural abscess. Differential considerations would include meningioma versus intradural metastasis. There is a nonspecific 7-8 mm enhancing lesion that is T2 hyperintense within the inferior aspect of the T10 vertebral body. There is no associated intrinsic T1 shortening. Findings concerning for metastasis or similar although nonspecific. There is extensive enhancement at T8-T9 with endplate and disc space edema, likely reflecting discitis osteomyelitis. There is associated T1 prolongation on precontrast images. There is a paravertebral abscess, similar to recent CT. There is moderate/severe spinal cord narrowing most pronounced at T9-T10 and T8-T9. And predominantly related to epidural abscess. There are bilateral dependent pleural effusions, likely reactive and new/increased from prior. There is a left pleural effusion particularly at the left upper hemithorax the demonstrates loculation and enhancement on MRI and is concerning for empyema, likely direct extension of paraspinal infection/inflammation into the left pleural space from the left posterior mediastinum. The enhancement on the cervical spine MRI extents to the skull base and intracranial extension is not excluded and MRI with contrast of the brain is advised. The visualized portions of the skull base including the posterior fossa brainstem and cerebellum appear grossly unremarkable although incompletely evaluated. Globular, enlarged uterus, presumably from fibroids, partially visualized, better assessed on prior CT. The conus terminates posterior to L2. Partially cystic and enhancing right adnexal mass is better seen on recent CT and largely beyond the field of view of this exam. A left mastoid effusion is partially visualized. IMPRESSION: 1. Dorsal lower lumbar spine epidural abscess. 2. Ventral epidural abscess extending from skull base through upper lumbar spine. 3. Brain MRI recommended to assess for presence of intracranial extension. 4. Similar to prior CT, there is an enhancing mass at T3-T4 is observed, but presumably meningioma although nonspecific. Differential consideration would include intradural metastasis. There is severe spinal cord compression at T3- T4. There is moderate/severe spinal cord compression at T9-T10 and T8-T9. There is moderate cervical spinal canal narrowing.. 5. Partially loculated, enhancing left upper hemithorax pleural effusion, concerning for empyema and possibly direct extension of paraspinal infection. 6. Globular, enlarged uterus partially visualized. 7. Nonspecific bone marrow enhancement at T10 vertebral body. Malignancy/metastasis not excluded. 8. Partially calcified enhancing right adnexal mass partially visualized. 9. Additional findings as above. Added to radiology results pathway communication system in accordance with [place] ACT 112 at 3:58 am on 04/22/2024. Procedure Note Taiwo Johnson MD - 04/22/2024 EXAM: 1. MRI CERVICAL SPINE WITHOUT AND WITH CONTRAST 2. MRI THORACIC SPINE WITHOUT AND WITH CONTRAST 3. MRI LUMBAR SPINE WITHOUT AND WITH CONTRAST HISTORY: spinal epidural abscess, osteomyelitis COMPARISON: 04/18/2024 TECHNIQUE: 1. Multiplanar multisequence MRI of the cervical spine without and withintravenous contrast was performed and reviewed. 2. Multiplanar multisequence MRI of the thoracic spine without and withintravenous contrast was performed and reviewed. 3. Multiplanar multisequence MRI of the lumbar spine without and withintravenous contrast was performed and reviewed. Type and volume of intravenous contrast reported separately by MRItechnologist. FINDINGS: There is a ventral epidural abscess. It starts at the skull baseposterior to the dens and extends from the cervical spine to the thoracicspine and then through the lumbar spine terminating at the L1-L2 discspace. It measures up to 8 mm in thickness and is most pronounced in thecervical spine. Within the lumbosacral spine there is a dorsal epidural abscess as well,it extends from the inferior aspect of L3 through the superior aspect ofS1. It measures up to 11 mm in thickness. Similar to recent CT there isan enhancing intradural mass within the thoracic spine at T3-T4. It isovoid shaped and demonstrates solid enhancement and there is resultantsevere compression of the spinal cord particularly in conjunction with theepidural abscess present at this location as well. It measuresapproximately 9 x 12 x 17 mm is difficult to assess for presence of anenhancing dural tail given the extensive adjacent enhancing dura from theepidural abscess. Differential considerations would include meningiomaversus intradural metastasis. There is a nonspecific 7-8 mm enhancinglesion that is T2 hyperintense within the inferior aspect of the [id number] body. There is no associated intrinsic T1 shortening. Findingsconcerning for metastasis or similar although nonspecific. There is extensive enhancement at T8-T9 with endplate and disc space edema,likely reflecting discitis osteomyelitis. There is associated [id number] on precontrast images. There is a paravertebral abscess,similar to recent CT. There is moderate/severe spinal cord narrowing mostpronounced at T9-T10 and T8-T9. And predominantly related to epiduralabscess. There are bilateral dependent pleural effusions, likely reactiveand new/increased from prior. There is a left pleural effusionparticularly at the left upper hemithorax the demonstrates loculation andenhancement on MRI and is concerning for empyema, likely direct extensionof paraspinal infection/inflammation into the left pleural space from theleft posterior mediastinum. The enhancement on the cervical spine MRIextents to the skull base and intracranial extension is not excluded andMRI with contrast of the brain is advised. The visualized portions of theskull base including the posterior fossa brainstem and cerebellum appear grossly unremarkable although incompletely evaluated. Globular,enlarged uterus, presumably from fibroids, partially visualized, betterassessed on prior CT. The conus terminates posterior to L2. Partiallycystic and enhancing right adnexal mass is better seen on recent CT andlargely beyond the field of view of this exam. A left mastoid effusion ispartially visualized. IMPRESSION: 1. Dorsal lower lumbar spine epidural abscess. 2. Ventral epidural abscess extending from skull base through upper lumbarspine. 3. Brain MRI recommended to assess for presence of intracranialextension. 4. Similar to prior CT, there is an enhancing mass at T3-T4 is observed,but presumably meningioma although nonspecific. Differentialconsideration would include intradural metastasis. There is severe spinalcord compression at T3-T4. There is moderate/severe spinal cordcompression at T9-T10 and T8-T9. There is moderate cervical spinal canalnarrowing.. 5. Partially loculated, enhancing left upper hemithorax pleural effusion,concerning for empyema and possibly direct extension of paraspinalinfection. 6. Globular, enlarged uterus partially visualized. 7. Nonspecific bone marrow enhancement at T10 vertebral body.Malignancy/metastasis not excluded. 8. Partially calcified enhancing right adnexal mass partiallyvisualized. 9. Additional findings as above. Added to radiology results pathway communication system in [place] with[place] ACT 112 at 3:58 am on 04/22/2024. Brody Stout MD RAD MRI-[facility] * MRI T SPINE W WO CONTRAST (04/22/2024 1:05 AM EDT) Anatomical Region Laterality Modality Vertebra, Tspine Magnetic Resona nce 04/22/2024 4:04 AM EDT Narrative 04/22/2024 4:01 AM EDT EXAM: 1. MRI CERVICAL SPINE WITHOUT AND WITH CONTRAST 2. MRI THORACIC SPINE WITHOUT AND WITH CONTRAST 3. MRI LUMBAR SPINE WITHOUT AND WITH CONTRAST HISTORY: spinal epidural abscess, osteomyelitis COMPARISON: 04/18/2024 TECHNIQUE: 1. Multiplanar multisequence MRI of the cervical spine without and with intravenous contrast was performed and reviewed. 2. Multiplanar multisequence MRI of the thoracic spine without and with intravenous contrast was performed and reviewed. 3. Multiplanar multisequence MRI of the lumbar spine without and with intravenous contrast was performed and reviewed. Type and volume of intravenous contrast reported separately by radiologic technologist. FINDINGS: There is a ventral epidural abscess. It starts at the skull base posterior to the dens and extends from the cervical spine to the thoracic spine and then through the lumbar spine terminating at the L1-L2 disc space. It measures up to 8 mm in thickness and is most pronounced in the cervical spine. Within the lumbosacral spine there is a dorsal epidural abscess as well, it extends from the inferior aspect of L3 through the superior aspect of S1. It measures up to 11 mm in thickness. Similar to recent CT there is an enhancing intradural mass within the thoracic spine at T3-T4. It is ovoid shaped and demonstrates solid enhancement and there is resultant severe compression of the spinal cord particularly in conjunction with the epidural abscess present at this location as well. It measures approximately 9 x 12 x 17 mm is difficult to assess for presence of an enhancing dural tail given the extensive adjacent enhancing dura from the epidural abscess. Differential considerations would include meningioma versus intradural metastasis. There is a nonspecific 7-8 mm enhancing lesion that is T2 hyperintense within the inferior aspect of the T10 vertebral body. There is no associated intrinsic T1 shortening. Findings concerning for metastasis or similar although nonspecific. There is extensive enhancement at T8-T9 with endplate and disc space edema, likely reflecting discitis osteomyelitis. There is associated T1 prolongation on precontrast images. There is a paravertebral abscess, similar to recent CT. There is moderate/severe spinal cord narrowing most pronounced at T9-T10 and T8-T9. And predominantly related to epidural abscess. There are bilateral dependent pleural effusions, likely reactive and new/increased from prior. There is a left pleural effusion particularly at the left upper hemithorax the demonstrates loculation and enhancement on MRI and is concerning for empyema, likely direct extension of paraspinal infection/inflammation into the left pleural space from the left posterior mediastinum. The enhancement on the cervical spine MRI extents to the skull base and intracranial extension is not excluded and MRI with contrast of the brain is advised. The visualized portions of the skull base including the posterior fossa brainstem and cerebellum appear grossly unremarkable although incompletely evaluated. Globular, enlarged uterus, presumably from fibroids, partially visualized, better assessed on prior CT. The conus terminates posterior to L2. Partially cystic and enhancing right adnexal mass is better seen on recent CT and largely beyond the field of view of this exam. A left mastoid effusion is partially visualized. IMPRESSION: 1. Dorsal lower lumbar spine epidural abscess. 2. Ventral epidural abscess extending from skull base through upper lumbar spine. 3. Brain MRI recommended to assess for presence of intracranial extension. 4. Similar to prior CT, there is an enhancing mass at T3-T4 is observed, but presumably meningioma although nonspecific. Differential consideration would include intradural metastasis. There is severe spinal cord compression at T3- T4. There is moderate/severe spinal cord compression at T9-T10 and T8-T9. There is moderate cervical spinal canal narrowing.. 5. Partially loculated, enhancing left upper hemithorax pleural effusion, concerning for empyema and possibly direct extension of paraspinal infection. 6. Globular, enlarged uterus partially visualized. 7. Nonspecific bone marrow enhancement at T10 vertebral body. Malignancy/metastasis not excluded. 8. Partially calcified enhancing right adnexal mass partially visualized. 9. Additional findings as above. Added to radiology results pathway communication system in accordance with [place] ACT 112 at 3:58 am on 04/22/2024. Procedure Note Taiwo Johnson MD - 04/22/2024 EXAM: 1. MRI CERVICAL SPINE WITHOUT AND WITH CONTRAST 2. MRI THORACIC SPINE WITHOUT AND WITH CONTRAST 3. MRI LUMBAR SPINE WITHOUT AND WITH CONTRAST HISTORY: spinal epidural abscess, osteomyelitis COMPARISON: 04/18/2024 TECHNIQUE: 1. Multiplanar multisequence MRI of the cervical spine without and withintravenous contrast was performed and reviewed. 2. Multiplanar multisequence MRI of the thoracic spine without and withintravenous contrast was performed and reviewed. 3. Multiplanar multisequence MRI of the lumbar spine without and withintravenous contrast was performed and reviewed. Type and volume of intravenous contrast reported separately by MRItechnologist. FINDINGS: There is a ventral epidural abscess. It starts at the skull baseposterior to the dens and extends from the cervical spine to the thoracicspine and then through the lumbar spine terminating at the L1-L2 discspace. It measures up to 8 mm in thickness and is most pronounced in thecervical spine. Within the lumbosacral spine there is a dorsal epidural abscess as well,it extends from the inferior aspect of L3 through the superior aspect ofS1. It measures up to 11 mm in thickness. Similar to recent CT there isan enhancing intradural mass within the thoracic spine at T3-T4. It isovoid shaped and demonstrates solid enhancement and there is resultantsevere compression of the spinal cord particularly in conjunction with theepidural abscess present at this location as well. It measuresapproximately 9 x 12 x 17 mm is difficult to assess for presence of anenhancing dural tail given the extensive adjacent enhancing dura from theepidural abscess. Differential considerations would include meningiomaversus intradural metastasis. There is a nonspecific 7-8 mm enhancinglesion that is T2 hyperintense within the inferior aspect of the [id number] body. There is no associated intrinsic T1 shortening. Findingsconcerning for metastasis or similar although nonspecific. There is extensive enhancement at T8-T9 with endplate and disc space edema,likely reflecting discitis osteomyelitis. There is associated [id number] on precontrast images. There is a paravertebral abscess,similar to recent CT. There is moderate/severe spinal cord narrowing mostpronounced at T9-T10 and T8-T9. And predominantly related to epiduralabscess. There are bilateral dependent pleural effusions, likely reactiveand new/increased from prior. There is a left pleural effusionparticularly at the left upper hemithorax the demonstrates loculation andenhancement on MRI and is concerning for empyema, likely direct extensionof paraspinal infection/inflammation into the left pleural space from theleft posterior mediastinum. The enhancement on the cervical spine MRIextents to the skull base and intracranial extension is not excluded andMRI with contrast of the brain is advised. The visualized portions of theskull base including the posterior fossa brainstem and cerebellum appear grossly unremarkable although incompletely evaluated. Globular,enlarged uterus, presumably from fibroids, partially visualized, betterassessed on prior CT. The conus terminates posterior to L2. Partiallycystic and enhancing right adnexal mass is better seen on recent CT andlargely beyond the field of view of this exam. A left mastoid effusion ispartially visualized. IMPRESSION: 1. Dorsal lower lumbar spine epidural abscess. 2. Ventral epidural abscess extending from skull base through upper lumbarspine. 3. Brain MRI recommended to assess for presence of intracranialextension. 4. Similar to prior CT, there is an enhancing mass at T3-T4 is observed,but presumably meningioma although nonspecific. Differentialconsideration would include intradural metastasis. There is severe spinalcord compression at T3-T4. There is moderate/severe spinal cordcompression at T9-T10 and T8-T9. There is moderate cervical spinal canalnarrowing.. 5. Partially loculated, enhancing left upper hemithorax pleural effusion,concerning for empyema and possibly direct extension of paraspinalinfection. 6. Globular, enlarged uterus partially visualized. 7. Nonspecific bone marrow enhancement at T10 vertebral body.Malignancy/metastasis not excluded. 8. Partially calcified enhancing right adnexal mass partiallyvisualized. 9. Additional findings as above. Added to radiology results pathway communication system in [place] with[place] ACT 112 at 3:58 am on 04/22/2024. Brody Stout MD RAD MRI-M[facility] * MRI L SPINE W WO CONTRAST (04/22/2024 1:03 AM EDT) Anatomical Region Laterality Modality Vertebra, Lspine Magnetic Resona nce 04/22/2024 4:04 AM EDT Narrative 04/22/2024 4:01 AM EDT EXAM: 1. MRI CERVICAL SPINE WITHOUT AND WITH CONTRAST 2. MRI THORACIC SPINE WITHOUT AND WITH CONTRAST 3. MRI LUMBAR SPINE WITHOUT AND WITH CONTRAST HISTORY: spinal epidural abscess, osteomyelitis COMPARISON: 04/18/2024 TECHNIQUE: 1. Multiplanar multisequence MRI of the cervical spine without and with intravenous contrast was performed and reviewed. 2. Multiplanar multisequence MRI of the thoracic spine without and with intravenous contrast was performed and reviewed. 3. Multiplanar multisequence MRI of the lumbar spine without and with intravenous contrast was performed and reviewed. Type and volume of intravenous contrast reported separately by radiologic technologist. FINDINGS: There is a ventral epidural abscess. It starts at the skull base posterior to the dens and extends from the cervical spine to the thoracic spine and then through the lumbar spine terminating at the L1-L2 disc space. It measures up to 8 mm in thickness and is most pronounced in the cervical spine. Within the lumbosacral spine there is a dorsal epidural abscess as well, it extends from the inferior aspect of L3 through the superior aspect of S1. It measures up to 11 mm in thickness. Similar to recent CT there is an enhancing intradural mass within the thoracic spine at T3-T4. It is ovoid shaped and demonstrates solid enhancement and there is resultant severe compression of the spinal cord particularly in conjunction with the epidural abscess present at this location as well. It measures approximately 9 x 12 x 17 mm is difficult to assess for presence of an enhancing dural tail given the extensive adjacent enhancing dura from the epidural abscess. Differential considerations would include meningioma versus intradural metastasis. There is a nonspecific 7-8 mm enhancing lesion that is T2 hyperintense within the inferior aspect of the T10 vertebral body. There is no associated intrinsic T1 shortening. Findings concerning for metastasis or similar although nonspecific. There is extensive enhancement at T8-T9 with endplate and disc space edema, likely reflecting discitis osteomyelitis. There is associated T1 prolongation on precontrast images. There is a paravertebral abscess, similar to recent CT. There is moderate/severe spinal cord narrowing most pronounced at T9-T10 and T8-T9. And predominantly related to epidural abscess. There are bilateral dependent pleural effusions, likely reactive and new/increased from prior. There is a left pleural effusion particularly at the left upper hemithorax the demonstrates loculation and enhancement on MRI and is concerning for empyema, likely direct extension of paraspinal infection/inflammation into the left pleural space from the left posterior mediastinum. The enhancement on the cervical spine MRI extents to the skull base and intracranial extension is not excluded and MRI with contrast of the brain is advised. The visualized portions of the skull base including the posterior fossa brainstem and cerebellum appear grossly unremarkable although incompletely evaluated. Globular, enlarged uterus, presumably from fibroids, partially visualized, better assessed on prior CT. The conus terminates posterior to L2. Partially cystic and enhancing right adnexal mass is better seen on recent CT and largely beyond the field of view of this exam. A left mastoid effusion is partially visualized. IMPRESSION: 1. Dorsal lower lumbar spine epidural abscess. 2. Ventral epidural abscess extending from skull base through upper lumbar spine. 3. Brain MRI recommended to assess for presence of intracranial extension. 4. Similar to prior CT, there is an enhancing mass at T3-T4 is observed, but presumably meningioma although nonspecific. Differential consideration would include intradural metastasis. There is severe spinal cord compression at T3- T4. There is moderate/severe spinal cord compression at T9-T10 and T8-T9. There is moderate cervical spinal canal narrowing.. 5. Partially loculated, enhancing left upper hemithorax pleural effusion, concerning for empyema and possibly direct extension of paraspinal infection. 6. Globular, enlarged uterus partially visualized. 7. Nonspecific bone marrow enhancement at T10 vertebral body. Malignancy/metastasis not excluded. 8. Partially calcified enhancing right adnexal mass partially visualized. 9. Additional findings as above. Added to radiology results pathway communication system in accordance with [place] ACT 112 at 3:58 am on 04/22/2024. Procedure Note Taiwo Johnson MD - 04/22/2024 EXAM: 1. MRI CERVICAL SPINE WITHOUT AND WITH CONTRAST 2. MRI THORACIC SPINE WITHOUT AND WITH CONTRAST 3. MRI LUMBAR SPINE WITHOUT AND WITH CONTRAST HISTORY: spinal epidural abscess, osteomyelitis COMPARISON: 04/18/2024 TECHNIQUE: 1. Multiplanar multisequence MRI of the cervical spine without and withintravenous contrast was performed and reviewed. 2. Multiplanar multisequence MRI of the thoracic spine without and withintravenous contrast was performed and reviewed. 3. Multiplanar multisequence MRI of the lumbar spine without and withintravenous contrast was performed and reviewed. Type and volume of intravenous contrast reported separately by MRItechnologist. FINDINGS: There is a ventral epidural abscess. It starts at the skull baseposterior to the dens and extends from the cervical spine to the thoracicspine and then through the lumbar spine terminating at the L1-L2 discspace. It measures up to 8 mm in thickness and is most pronounced in thecervical spine. Within the lumbosacral spine there is a dorsal epidural abscess as well,it extends from the inferior aspect of L3 through the superior aspect ofS1. It measures up to 11 mm in thickness. Similar to recent CT there isan enhancing intradural mass within the thoracic spine at T3-T4. It isovoid shaped and demonstrates solid enhancement and there is resultantsevere compression of the spinal cord particularly in conjunction with theepidural abscess present at this location as well. It measuresapproximately 9 x 12 x 17 mm is difficult to assess for presence of anenhancing dural tail given the extensive adjacent enhancing dura from theepidural abscess. Differential considerations would include meningiomaversus intradural metastasis. There is a nonspecific 7-8 mm enhancinglesion that is T2 hyperintense within the inferior aspect of the [id number] body. There is no associated intrinsic T1 shortening. Findingsconcerning for metastasis or similar although nonspecific. There is extensive enhancement at T8-T9 with endplate and disc space edema,likely reflecting discitis osteomyelitis. There is associated [id number] on precontrast images. There is a paravertebral abscess,similar to recent CT. There is moderate/severe spinal cord narrowing mostpronounced at T9-T10 and T8-T9. And predominantly related to epiduralabscess. There are bilateral dependent pleural effusions, likely reactiveand new/increased from prior. There is a left pleural effusionparticularly at the left upper hemithorax the demonstrates loculation andenhancement on MRI and is concerning for empyema, likely direct extensionof paraspinal infection/inflammation into the left pleural space from theleft posterior mediastinum. The enhancement on the cervical spine MRIextents to the skull base and intracranial extension is not excluded andMRI with contrast of the brain is advised. The visualized portions of theskull base including the posterior fossa brainstem and cerebellum appear grossly unremarkable although incompletely evaluated. Globular,enlarged uterus, presumably from fibroids, partially visualized, betterassessed on prior CT. The conus terminates posterior to L2. Partiallycystic and enhancing right adnexal mass is better seen on recent CT andlargely beyond the field of view of this exam. A left mastoid effusion ispartially visualized. IMPRESSION: 1. Dorsal lower lumbar spine epidural abscess. 2. Ventral epidural abscess extending from skull base through upper lumbarspine. 3. Brain MRI recommended to assess for presence of intracranialextension. 4. Similar to prior CT, there is an enhancing mass at T3-T4 is observed,but presumably meningioma although nonspecific. Differentialconsideration would include intradural metastasis. There is severe spinalcord compression at T3-T4. There is moderate/severe spinal cordcompression at T9-T10 and T8-T9. There is moderate cervical spinal canalnarrowing.. 5. Partially loculated, enhancing left upper hemithorax pleural effusion,concerning for empyema and possibly direct extension of paraspinalinfection. 6. Globular, enlarged uterus partially visualized. 7. Nonspecific bone marrow enhancement at T10 vertebral body.Malignancy/metastasis not excluded. 8. Partially calcified enhancing right adnexal mass partiallyvisualized. 9. Additional findings as above. Added to radiology results pathway communication system in accordance withPA ACT 112 at 3:58 am on 04/22/2024. Brody Stout MD RAD MRI-MRA * ECHO, COMPLETE (2D), TRANS-THORACIC (04/21/2024 10:32 AM EDT) LEFT VENTRICULAR EJECTION FRACTION 55 % [facility] 04/21/2024 8:46 AM EDT Anita Garcia ECHOCARDIOLOGY [facility] * (ABNORMAL) DIFFERENTIAL, TECHNOLOGIST REVIEW (04/21/2024 7:56 AM EDT) WBC 31.37(H) 4.00 - 10.80 K/uL 04/21/2024 8:54 AM EDT [facility] Neutrophils % 84.0(H) 40.0 - 75.0 % 04/21/2024 8:54 AM EDT [facility] Lymphocytes % 7.0(L) 18.0 - 42.0 % 04/21/2024 8:54 AM EDT [facility] Monocytes % 5.0 1.0 - 11.0 % 04/21/2024 8:54 AM EDT [facility] Eosinophils % 1.0 0.0 - 6.0 % 04/21/2024 8:54 AM EDT [facility] Metamyelocytes % 1.0(H) <=0.0 % 04/21/20 8:54 AM EDT [facility] Myelocytes % 2.0(H) <=0.0 % 04/21/2024 8:54 AM EDT LAB[facility] Absolute Neutrophils 26.35(H) 1.80 - 7.70 K/uL 04/21/2024 8:54 AM EDT LAB[facility] Absolute Lymphocytes 2.20 1.00 - 4.80 K/uL 04/21/2024 8:54 AM EDT LAB[facility] Absolute Monocytes 1.57(H) 0.00 - 1.10 K/uL 04/21/2024 8:54 AM EDT LAB[facility] Absolute Eosinophils 0.31 0.00 - 0.70 K/uL 04/21/2024 8:54 AM EDT LAB[facility] Absolute Metamyelocytes 0.31(H) <=0.00 K/uL 04/21/2024 8:54 AM EDT LAB[facility] Absolute Myelocytes 0.63(H) <=0.00 K/uL 04/21/2024 8:54 AM EDT [facility] Blood Venous blood specimen / Unknown Venipuncture / Unknown 04/21/2024 7:56 AM EDT 04/21/2024 8:[address] [facility] ORDERA BLES Performing Organization Address [facility] Co de Phone Number [facility]ATORY [facility] [address] [place] [address] * DIFFERENTIAL, AUTOMATED (04/21/2024 7:56 AM EDT) Blood Venous blood specimen / Unknown Venipuncture / Unknown 04/21/2024 7:56 AM EDT 04/21/2024 8:05 AM EDT [facility] LAB BLOOD ORDERA BLES Performing Organization Address [facility] de Phone Number LAB[facility]ATORY [facility] [address] [place] [address] * (ABNORMAL) CBC (04/21/2024 7:56 AM EDT) WBC 31.37(H) 4.00 - 10.80 K/uL 04/21/2024 8:26 AM EDT [facility] RBC 3.53 3.85 - 5.15 M/uL 04/21/2024 8:26 AM EDT [facility] HGB 10.7(L) 12.0 - 15.3 g/dL 04/21/2024 8:26 AM EDT [facility] HCT 32.1(L) 36.0 - 45.2 % 04/21/2024 8:26 AM EDT [facility] MCV 90.9 81.5 - 97.5 fL 04/21/2024 8:26 AM EDT [facility] MCH 30.3 27.0 - 34.0 pg 04/21/2024 8:26 AM EDT [facility] MCHC 33.3 32.0 - 36.0 g/dL 04/21/2024 8:26 AM EDT [facility] RDW 15.4 11.5 - 15.5 % 04/21/2024 8:26 AM EDT LABORATORY [facility]T 274 140 - 400 K/uL 04/21/2024 8:26 AM EDT LABORATORY [facility] MPV 10.3 6.6 - 11.1 fL 04/21/2024 8:26 AM EDT LABORATORY [facility] nRBCs 0 <=0 /100 WBCs 04/21/2024 8:26 AM EDT LABORATORY [facility] Blood Venous blood specimen / Unknown Venipuncture / Unknown 04/21/2024 7:56 AM EDT 04/21/2024 8:05 AM EDT Anita Toni Garcia DO LAB BLOOD ORDERA BLES Performing Organization Address [facility]/ZIP Co de Phone Number LABORATORY [place] [address] [place] [address] * (ABNORMAL) CULTURE, BLOOD (04/21/2024 7:55 AM EDT) Pathologist [facility] Blood Culture Growth Aerobic bottle Staphylococcus aureus(AA) 04/26/2024 3:04 PM EDT LABORATORY [facility] Comment:Refer to culture col lected the same day for complete identification and/or susceptibilities. Stain Description Aerobic bottle Gram positive cocci in clusters(AA) 04/26/2024 3:04 PM EDT LABORATORY [facility] Comment:This is an appended report. These results have been appended to a previously preliminary verified report. Blood Venous blood specimen / Unknown Venipuncture / Unknown 04/21/2024 7:55 AM EDT 04/21/2024 8:38 AM EDT Narrative LABORATORY [facility] - 04/26/2024 3:04 PM EDT Anaerobic bottle no growth. Anita Garcia DO LAB MICRO - GENE RAL ORDERABLES Performing Organization Address [facility]/ZIP Co de Phone Number LABORATORY [place] [address] [place] [address] * (ABNORMAL) BLOOD CULTURE PCR IDENTIFICATION (04/21/2024 7:49 AM EDT) Pathologist [facility] Staphylococcus aureus DNA by PCR Positive(AA) Negative 04/22/2024 10:35 AM EDT LAB[facility]ATORY [facility] mecA/C and MREJ (Methicillin Resistance Genes) Negative Negative 04/22/2024 10:35 AM EDT LAB[facility]ORY [facility] Comment Negative for all other bacterial targets and resistance genes. 04/22/2024 10:35 AM EDT LAB[facility] Comment: This assay detects: Enterococcus faecalis,Enterococcus faecium, Listeria monocytogenes,Staphylococcus,Staphylococcus aureus,Staphylococcus epidermidis,Staphylococcus lugdunensis, Streptococcus,Streptococcus agalactiae, Streptococcus pneumoniae,Streptococcus pyogenes, Acinetobacter calcoaceticus-baumannii complex,Bacteriodes fragilis,Stenotrophomonas maltophilia,Enterobacterales,Enterobacter cloacae complex,Escherichia coli, Klebsiella oxytoca,Klebsiella pneumoniae,Klebsiella aerogenes,Proteus, Serratia marcescens,Salmonella spp.,Haemophilus influenzae, Neisseria meningitidis, Pseudomonas aeruginosa,Madhavi albicans,Madhavi auris,Madhavi glabrata,Madhavi krusei,Madhavi parapsilosis,Madhavi tropicalis,Cryptococcus neoformans/hattie, KPC carbapenem resistance gene, mecA/C resistance gene,mecA/C MREJ (MRSA)resistance gene,Baron/B vancomycin resistance gene,VIM resistance gene, OXA-48-like resistance gene, NDM resistance gene,MCR-1 resistance gene, IMP resistance gene and CTX-M resistance gene. Blood Venous blood specimen / Unknown Venipuncture / Unknown 04/21/2024 7:49 AM EDT 04/21/2024 8:38 AM EDT Anita Garcia DO LAB MICRO - GENE RAL ORDERABLES Performing Organization Address City/State/[facility] Co de Phone Number LABORATORY [facility] [address] [place] [address] * (ABNORMAL) COMPREHENSIVE METABOLIC PANEL (04/21/2024 7:49 AM EDT) Pathologist [facility] BUN 16 6 - 20 mg/dL 04/21/2024 10:41 AM EDT LAB[facility] CREATININE 0.6 0.5 - 1.0 mg/dL 04/21/2024 10:41 AM EDT LAB[facility] EGFR >90 >=60 mL/min 04/21/2024 10:41 AM EDT LAB[facility] Comment:eGFR is calculated b ased on the CKD-EPI 2020 equation. SODIUM 140 135 - 146 mmol/L 04/21/2024 10:41 AM EDT LAB[facility] POTASSIUM 3.7 3.5 - 5.1 mmol/L 04/21/2024 10:41 AM EDT LAB[facility] CHLORIDE 103 98 - 107 mmol/L 04/21/2024 10:41 AM EDT LAB[facility] CO2 26 22 - 32 mmol/L 04/21/2024 10:41 AM EDT LAB[facility] ANION GAP 11 7 - 15 mmol/L 04/21/2024 10:41 AM EDT [facility] GLUCOSE 106 70 - 120 mg/dL 04/21/2024 10:41 AM EDT LAB[facility] Albumin 2.6(L) 3.8 - 5.0 g/dL 04/21/2024 10:41 AM EDT LAB[facility] AST 108(H) 10 - 35 U/L 04/21/2024 10:41 AM EDT LAB[facility] Alkaline Phosphatase 227(H) 35 - 130 U/L 04/21/2024 10:41 AM EDT LAB[facility] Bilirubin, Total 1.6(H) <=1.2 mg/dL 04/21/2024 10:41 AM EDT LAB[facility] CALCIUM 8.3(L) 8.4 - 10.2 mg/dL 04/21/2024 10:41 AM EDT LAB[facility] Protein 5.5(L) 6.0 - 8.3 g/dL 04/21/2024 10:41 AM EDT LAB[facility] ALT 112(H) 10 - 35 U/L 04/21/2024 10:41 AM EDT LAB[facility] Blood Venous blood specimen / Unknown Venipuncture / Unknown 04/21/2024 7:49 AM EDT 04/21/2024 8:05 AM EDT Anita Garcia DO LAB BLOOD ORDERA BLES LAB[facility] [address] [place] [address] * (ABNORMAL) CULTURE, BLOOD (04/21/2024 7:49 AM EDT) Blood Culture Growth Aerobic bottle Staphylococcus aureus(AA) MICROBROTH DILUTIONS 04/24/2024 7:51 AM EDT LABORATORY [facility] Stain Description Aerobic bottle Gram positive cocci in clusters(AA) 04/24/2024 7:51 AM EDT LABORATORY [facility] Comment:This is an appended report. These results have been appended to a previously preliminary verified report. Blood Venous blood specimen / Unknown Venipuncture / Unknown 04/21/2024 7:49 AM EDT 04/21/2024 8:38 AM EDT Narrative LABORATORY [facility] - 04/24/2024 7:51 AM EDT Anaerobic bottle no growth to date. Organism Antibiotic Method Susceptibility Staphylococcus aureus Clindamycin MICROBROTH DILUTIONS <=0.25: Susceptible Staphylococcus aureus Erythromycin MICROBROTH DILUTIONS <=0.25: Susceptible Staphylococcus aureus Oxacillin MICROBROTH DILUTIONS <=0.25: Susceptible Staphylococcus aureus Tetracycline MICROBROTH DILUTIONS <=1: Susceptible Staphylococcus aureus Trimeth/Sulfametho xazo le MICROBROTH DILUTIONS <=10: Susceptible Staphylococcus aureus Vancomycin MICROBROTH DILUTIONS <=0.5: Susceptible Anita T[facility] LAB MICRO - GENE RAL ORDERABLES Performing Organization Address City/[facility]/ZIP Co de Phone Number LABORATORY [address] [address] * MRSA SCREEN, PCR (04/21/2024 12:29 AM EDT) [facility] MRSA PCR Result Negative Negative 3:06 AM EDT LABORATORY [facility] Comment:No Methicillin resis tant Staphylococcus aureus detected by PCR (amplified probe). Upper Respiratory Swab of internal nose / Unknown Non-blood Collection / Unknown 04/21/2024 12:29 AM EDT 04/21/2024 1:[address] [employer] LAB MICRO - GENE RAL ORDERABLES Performing Organization Address [facility]/ZIP Co de Phone Number LABORATORY [place] [address] [place] [address] * (ABNORMAL) BASIC METABOLIC PANEL (04/20/2024 9:27 PM EDT) BUN 16 6 - 20 mg/dL 04/20/2024 10:02 PM EDT LAB[facility] CREATININE 0.6 0.5 - 1.0 mg/dL 04/20/2024 10:02 PM EDT LAB[facility]ATORY [facility] EGFR >90 >=60 mL/min 04/20/2024 10:02 PM EDT LAB[facility]ORY [facility] Comment:eGFR is calculated b ased on the CKD-EPI 2020 equation. SODIUM 139 135 - 146 mmol/L 04/20/2024 10:02 PM EDT LAB[facility]ORY [facility] POTASSIUM 3.4(L) 3.5 - 5.1 mmol/L 04/20/2024 10:02 PM EDT LAB[facility] CHLORIDE 102 98 - 107 mmol/L 04/20/2024 10:02 PM EDT LAB[facility] CO2 24 22 - 32 mmol/L 04/20/2024 10:02 PM EDT LABORATORY C ANION GAP 13 7 - 15 mmol/L 04/20/2024 10:02 PM EDT LABORATORY C GLUCOSE 110 70 - 120 mg/dL 04/20/2024 10:02 PM EDT LABORATORY C CALCIUM 8.2(L) 8.4 - 10.2 mg/dL 04/20/2024 10:02 PM EDT LABORATORY [facility] Blood Venous blood specimen / Unknown Venipuncture / Unknown 04/20/2024 9:27 PM EDT 04/20/2024 9:32 PM EDT Angeli Spring PA-C LAB BLOOD LINDSAY [facility]CON[facility] Organization Address City/State/[facility] Co de Phone Number LABORATORY [facility] [address] [place] [address] * XR CHEST 1 VIEW (04/20/2024 8:38 PM EDT) Anatomical Region Laterality Modality Chest Computed Radiogr aphy 04/20/2024 9:32 PM EDT Impressions 04/20/2024 9:29 PM EDT IMPRESSION Tiny right pleural effusion with right basilar atelectasis. No discernible left-sided pleural effusion is seen on this examination. Narrative 04/20/2024 9:29 PM EDT EXAM XR CHEST 1 VIEW-04/20/2024 8:38 pm HISTORY Hypoxia, pleural effusion follow-up COMPARISON Outside chest radiograph 10/19/2023. TECHNIQUE AP semi upright radiograph of the chest. FINDINGS Tiny right pleural effusion with right basilar atelectasis. No discernible left pleural effusion is seen on this examination. The pulmonary vasculature and cardiomediastinal silhouette are within normal limits. No acute osseous finding. Procedure Note Jonas Mendoza MD - 04/20/2024 EXAM XR CHEST 1 VIEW-04/20/2024 8:38 pm HISTORY Hypoxia, pleural effusion follow-up COMPARISON Outside chest radiograph 10/19/2023. TECHNIQUE AP semi upright radiograph of the chest. FINDINGS Tiny right pleural effusion with right basilar atelectasis. Nodiscernible left pleural effusion is seen on this examination. Thepulmonary vasculature and cardiomediastinal silhouette are within normallimits. No acute osseous finding. IMPRESSION IMPRESSION Tiny right pleural effusion with right basilar atelectasis. Nodiscernible left- sided pleural effusion is seen on this examination. Anita Garcia RADIOLOGY (RAD G ENERAL) * XR ABDOMEN 1 VIEW (04/20/2024 8:38 PM EDT) Anatomical Region Laterality Modality Abdomen, Pelvis Computed Radiogr aphy 04/20/2024 9:33 PM EDT Impressions 04/20/2024 9:31 PM EDT IMPRESSION Gas-filled loops of small and large bowel throughout the abdomen. No appreciable formed colonic stool or discrete bowel obstruction. Narrative 04/20/2024 9:31 PM EDT EXAM XR ABDOMEN 1 VIEW-04/20/2024 8:38 pm HISTORY Abdominal distention, evaluate for stool burden COMPARISON None TECHNIQUE AP supine radiograph of the abdomen. FINDINGS Gas-filled loops of small large bowel are noted throughout the abdomen. No appreciable formed colonic stool is seen. No obstruction, portal venous gas or free air. No discernible urolithiasis. Osseous structures appear intact. Procedure Note Jonas Mendoza MD - 04/20/2024 EXAM XR ABDOMEN 1 VIEW-04/20/2024 8:38 pm HISTORY Abdominal distention, evaluate for stool burden COMPARISON None TECHNIQUE AP supine radiograph of the abdomen. FINDINGS Gas-filled loops of small large bowel are noted throughout the abdomen.No appreciable formed colonic stool is seen. No obstruction, portalvenous gas or free air. No discernible urolithiasis. Osseous structuresappear intact. IMPRESSION IMPRESSION Gas-filled loops of small and large bowel throughout the abdomen. Noappreciable formed colonic stool or discrete bowel obstruction. Anita Garcia DO RADIOLOGY (RAD G ENERAL) documented in this encounter Visit Diagnoses Diagnosis Bacteremia due to Staphylococcus- Primary Bacteremia Osteomyelitis of thoracic spine (HCC) Unspecified osteomyelitis, other specified site Chest pain Chest pain, unspecified Bacteremia of undetermined etiology Bacteremia Pleural effusion, not elsewhere classified Atelectasis Pulmonary collapse Hypoxemia Other specified diseases of intestine Abdominal distension (gaseous) Flatulence, eructation, and gas pain Spinal abscess (HCC) Acute osteomyelitis, other specified site Endocarditis Endocarditis, valve unspecified, unspecified cause Tachycardia Tachycardia, unspecified Disorder of brain, unspecified Abnormal findings on diagnostic imaging of other specified body structures Status post laminectomy Other postprocedural status Acute osteomyelitis (HCC) Acute osteomyelitis, site unspecified Epidural abscess Intracranial and intraspinal abscess of unspecified site Other specified diseases of gallbladder Other ascites Abnormal results of liver function studies Nonspecific abnormal results of liver function study Bacteremia due to Staphylococcus Bacteremia Other specified symptoms and signs involving the circulatory and respiratory systems Urinary retention Retention of urine, unspecified Encounter for adjustment and management of vascular access device Adjustment disorder, unspecified type Encounter for central line placement Fitting and adjustment of vascular catheter Other constipation Epidural abscess Intracranial and intraspinal abscess of unspecified site Acute osteomyelitis (HCC) Acute osteomyelitis, site unspecified Acute hypoxemic respiratory failure (HCC) Status post laminectomy Other postprocedural status Urinary retention Retention of urine, unspecified Adjustment disorder Unspecified adjustment reaction Pleural effusion on left Unspecified pleural effusion Altered mental status documented in this encounter Administered Medications Inactive Administered Medications - up to 3 most recent administrations Medication Order MAR Action Action Date Dose Rate Site Acetaminophen (Tylenol) tab 650 mg 650 mg, Oral, Q4H PRN Pain, Moderate, Fever >38C(100.5F), Starting on Lisa 04/20/24 at 1929, Until Wed04/21/24 at 1606, Maximum of 4 grams (4000 mg) per day. Given 04/21/2024 2:28 AM EDT 650 mg Acetaminophen (Tylenol) tab 650 mg 650 mg, Oral, Q4H PRN Pain, Moderate, Fever (Temp Greater than ), Pain, Mild, 99.9, Starting on Wed04/21/24 at 1606, Until Wed06/01/24 at 1541, Maximum of 4 grams (4000 mg) per day. Given 06/01/2024 6:57 AM EDT 650 mg Given 05/31/2024 10:20 PM EDT 650 mg Given 05/31/2024 5:17 AM EDT 650 mg Alteplase (Cathflo Activase) inj 2 mg 2 mg, IV Push, PRN line occlusion , Starting on Wed04/25/24 at 1522, Until Wed06/01/24 at 1541, For 15 doses, For use in Catheter occlusion to be administered by IV Therapy nurses only at [facility]. At [facility]: IV Therapy PICC RN, Nursing Subeditor, MSICU RN's and Emergency Department RN's *Obtain Alteplase (CathFlo Activase) *Reconstitute Alteplase (CathFlo Activase) 2mg in 2.2ml sterile water *Instill Alteplase (CathFlo Activase) into occluded lumen(s) *After 30 minutes dwell time in catheter, assess catheter patency by attempting to aspirate blood. If catheter is patent withdraw 4-5 ml of blood to remove Alteplase (CathFlo Activase) and residual clot. Flush lumen with 10ml 0.9% normal saline *If catheter function is not restored allow for further dwell up to 120 minutes. *If catheter function is not restored, a second dose of Alteplase (CathFlo Activase) may be administered. *if catheter is stll not restored call a physician Bisacodyl (Dulcolax) supp 10 mg 10 mg, Rectal, DAILY PRN Constipation, Starting on Wed04/20/24 at 1917, Until Wed06/01/24 at 1541 Given 05/14/2024 4:25 PM EDT 10 mg Given 05/12/2024 8:56 PM EDT 10 mg Given 05/08/2024 4:23 AM EDT 10 mg buffered lidocaine 1 % inj Intradermal, ONCE PRN INTRA PROCEDURE, Starting on Wed05/01/24 at 1119, Until Wed05/01/24 at 1119, Intra-Op Given 05/01/2024 11:19 AM EDT 7 mL Arm Right Upper buffered lidocaine 1 % inj Intradermal, ONCE PRN INTRA PROCEDURE, Starting on 05/06/24 at 1321, Until 05/06/24 at 1321, Intra-Op Given 05/06/2024 1:21 PM EDT 10 mL Other-Specify calcium GLUConate 1000 mg in 50ml ivpb 1,000 mg, IV Piggyback, ONCE, 1 dose, On Wed04/23/24 at 0830 New Bag 04/23/2024 10:27 AM EDT 1,000 mg 100 mL/hr ceFAZolin in dextrose (Ancef) ivpb 2 g 2 g, IV Piggyback, Q8H, 126 doses, First dose on Wed04/21/24 at 1400, Last dose on Wed06/02/24 at 0600 New Bag 04/22/2024 12:41 PM EDT 2 g 100 mL/hr New Bag 04/22/2024 5:05 AM EDT 2 g 100 mL/hr New Bag 04/21/2024 9:12 PM EDT 2 g 100 mL/hr ceFAZolin in dextrose (Ancef) ivpb 2 g 2 g, IV Piggyback, Q8H, 152 doses, First dose on Wed04/25/24 at 1600, Last dose on Wed06/14/24 at 2200 New Bag 05/02/2024 12:57 PM EDT 2 g 100 mL/hr Start Infusion 05/02/2024 5:44 AM EDT 2 g 100 mL/hr Restarted 05/01/2024 10:18 PM EDT 4 g/hr 100 mL/hr ceFAZolin in dextrose (Ancef) ivpb 2 g 2 g, IV Piggyback, Q8H, 122 doses, First dose (after last modification) on Wed05/05/24 at 0930, Last dose on Wed06/14/24 at 1400 New Bag 06/01/2024 6:54 AM EDT 2 g 100 mL/hr New Bag 05/31/2024 10:26 PM EDT 2 g 100 mL/hr New Bag 05/31/2024 1:47 PM EDT 2 g 100 mL/hr chlorHEXIDINE (Periogard) 0.12 % oral rinse 15 mL 15 mL, Oral mucosal membrane, BID (08,1999), First dose on 04/22/24 at 2000, Until Discontinued, Include oral/gum/tooth brushing with medication. Use prepackaged oral kit suction tooth brush if available. Given 04/27/2024 8:38 AM EDT 15 mL Given 04/26/2024 9:31 PM EDT 15 mL Given 04/26/2024 9:05 AM EDT 15 mL chlorhexidine gluconate cloth 2 % pad External, [id number], First dose on Wed04/26/24 at 1000, Until Discontinued, Applied to appropriate patients per oracle e business developer's recommendations following daily care. May use more than one Pad (cloth/wipe) as needed to complete care. Given 06/01/2024 7:54 AM EDT 1 Pad Given 05/31/2024 8:05 AM EDT 1 Pad Given 05/30/2024 7:54 AM EDT 1 Pad diphenhydrAMINE (Benadryl) cap 25 mg 25 mg, Oral, ONCE, On Wed04/24/24 at 2245, For 1 dose Given 04/24/2024 10:16 PM EDT 25 mg diphenhydrAMINE (Benadryl) cap 25 mg 25 mg, Oral, Q6H PRN Itching, Starting on Wed04/25/24 at 1812, Until Wed05/10/24 at 0745 Given 05/09/2024 10:22 PM EDT 2 5 mg Given 05/08/2024 9:58 PM EDT 25 mg Given 05/07/2024 11:40 AM EDT 25 mg diphenhydrAMINE (Benadryl) cap 25 mg 25 mg, Oral, Q6H PRN Itching, Starting on Wed05/12/24 at 1856, Until Lisa 06/01/24 at 1541 Given 05/14/2024 9:55 PM EDT 25 mg Given 05/13/2024 9:41 PM EDT 25 mg Given 05/12/2024 10:09 PM EDT 25 mg fentaNYL (PF) inj ONCE PRN INTRA PROCEDURE, Starting on 05/06/24 at 1315, Until 05/06/24 at 1315, Intra-Op Given 05/06/2024 1:15 PM EDT 50 mcg gadobutrol (Gadavist) inj 6.8 mL 6.8 mL (0.1 mL/kg 68 kg), Intravenous, ONCE, On Wed04/22/24 at 0130, For 1 dose, Radiology Medication Routing (Non-IR) Given 04/22/2024 1:30 AM EDT 6 mL gadobutrol (Gadavist) inj 6.8 mL 6.8 mL (0.1 mL/kg 68 kg), Intravenous, ONCE, On 04/22/24 at 1445, For 1 dose, Radiology Medication Routing (Non-IR) Given 04/22/2024 2:13 PM EDT 6 mL hEParin 100 UNIT/ML Lock Flush inj 300 Units 300 Units (3 mL), IV Push, PRN Other, PICC Line, Starting on Wed04/25/24 at 1522, Until Wed06/01/24 at 1541, For 1 dose, Prior to discharge, to each lumen hEParin inj 5,000 Units 5,000 Units, Subcutaneous, Q8H, First dose on Wed04/23/24 at 2200, Until Discontinued Given 06/01/2024 6:49 AM EDT 5,000 Units Abdomen Right Lower Given 05/31/2024 10:23 PM EDT 5,000 Units Abdomen Left Lower Given 05/31/2024 1:44 PM EDT 5,000 Units A bdomen Right Lower hydrocortisone 1 % cream Topical, BID PRN Itching, Starting on Wed04/28/24 at 0434, Until Wed06/01/24 at 1541, Apply to itching Given 04/28/2024 5:19 AM EDT isolyte-S pH 7.4 infusion Intravenous, at 75 mL/hr, Plasma-LYTE 148, isolyte-S, and isolyte-S pH 7.4 are considered equivalent - including for MAR barcode scanning., CONTINUOUS, Starting on Wed04/20/24 at 2000, Until Wed04/21/24 at 1606 New Bag 04/20/2024 10:09 PM EDT 75 mL/hr Lidocaine (Aspercreme) 4 % patch 1 Patch 1 Patch, Transdermal, Daily(AM), First dose on Wed04/20/24 at 2215, Until Discontinued, Apply patch for 12 hours then remove for 12 hours! Remove any Lidocaine patches the patient may currently be wearing prior to applying the new patch Patch Applied 04/27/2024 8:46 AM EDT 1 Patch Back Right Patch Applied 04/22/2024 8:41 AM EDT 1 Patch Other-Specify Patch Applied 04/21/2024 9:40 AM EDT 1 Patch Back Right Lidocaine (Aspercreme) 4 % patch 2 Patch 2 Patch, Transdermal, Daily(AM), First dose (after last modification) on Wed04/29/24 at 2030, Until Discontinued, Apply patch for 12 hours then remove for 12 hours! Remove any Lidocaine patches the patient may currently be wearing prior to applying the new patch Patch Applied 05/29/2024 8:08 AM EDT 2 Patches Back Middle Patch Applied 05/26/2024 9:08 AM EDT 2 Patches Back Middle Patch Applied 05/25/2024 8:15 AM EDT 2 Patches Back Middle Lidocaine 1 % (PF) inj 1 mL 1 mL, Intradermal, PRN Other, Line Insertion, Starting on Wed04/25/24 at 1522, Until Wed06/01/24 at 1541, For 1 dose melatonin tab 3 mg 3 mg, Oral, HS, First dose on Wed04/21/24 at 0230, Until Discontinued Given 05/31/2024 10:20 PM EDT 3 mg Given 05/30/2024 8:03 PM EDT 3 mg Given 05/29/2024 9:43 PM EDT 3 mg Meropenem (Merrem) 2,000 mg in NSS 100 mL ivpb 2,000 mg, IV Piggyback, ONCE, 1 dose, On Wed04/22/24 at 2030 New Bag 04/22/2024 8:24 PM EDT 2,000 mg 210 mL/hr meropenem (MERREM) 2000 mg in 100 ml ivpb three hour infusion 2,000 mg, IV Piggyback, Q8HNOW, 15 doses, First dose on Wed04/23/24 at 0200, Last dose on Wed04/27/24 at 1800 Rate Verify 04/25/2024 11:23 AM EDT 666.6 mg/hr 35 mL/hr New Bag 04/25/2024 9:21 AM EDT 2,000 mg 35 mL/hr Restarted 04/25/2024 2:24 AM EDT 666.6 mg/hr 35 mL/hr Nutrisource (soluble fiber packet) 1 Packet, Oral, Daily(AM), First dose on Wed05/16/24 at 0915, Until Discontinued, Stir one packet into at least 4 oz of any hot or cold beverage or prepared soft food, including purees. Stir until dissolved. Tube Feedin. Flush feeding tube with 30 mL water. 2. Pour packet into a 4-6 fl oz container. 3. Add 120 mL water and mix well with a disposable spoon or tongue blade. 4. Administer Nutrisource via syringe. 5. Flush with 30 mL of water. Given 05/22/2024 8:36 AM EDT 1 Packet Given 05/21/2024 8:40 AM EDT 1 Packet Given 05/20/2024 8:34 AM EDT 1 Packet OLANZapine (zyPREXA IM) inj 5 mg 5 mg, Intramuscular, ONCE, On Wed05/03/24 at 2145, For 1 dose, Upon reconstitution with 2.1 mL of Sterile Water for Injection, each mL will contain 5 mg of olanzapine. Expires 1 hour after mixing. Given 05/03/2024 9:25 PM EDT 5 mg Thigh Left Oral Hygiene: Mouth Swab with dentifrice Oral, Q4H LIMITED (00;04;12;16), First dose on Wed04/23/24 at 0000, Until Discontinued, To be used with 1.5% hydrogen peroxide solution or 0.05% cetylpyridium chloride oral rinse Given 04/27/2024 4:00 AM EDT Given 04/26/2024 4:00 AM EDT Given 04/26/2024 12:00 AM EDT Polyethylene Glycol 3350 (Miralax) oral powder 17 g 17 g (1 Packet), Oral, Daily(AM), First dose on Wed04/21/24 at 0900, Until Discontinued, Mix in 8 oz of water, juice, soda, coffee, or tea. Given 06/01/2024 7:54 AM EDT 17 g Given 05/31/2024 8:05 AM EDT 17 g Given 05/30/2024 7:53 AM EDT 17 g potassium and sodium phosphate (Phos-Nak) oral powder 1 Packet 1 Packet, Oral, ONCE, On Wed04/24/24 at 1615, For 1 dose, Mix 1 packet in 2.5 ounces (75 mL) of water, stir well and administer promptly. 1 packet contains Phosphorus 250 mg (~8 mMoles) + potassium 280 mg (~7.125 mEq) + sodium 160mg (~7.125 mEq) Given 04/24/2024 6:03 PM EDT 1 Packet potassium and sodium phosphate (Phos-Nak) oral powder 1 Packet 1 Packet, Oral, ONCE, On Wed04/25/24 at 0830, For 1 dose, Mix 1 packet in 2.5 ounces (75 mL) of water, stir well and administer promptly. 1 packet contains Phosphorus 250 mg (~8 mMoles) + potassium 280 mg (~7.125 mEq) + sodium 160mg (~7.125 mEq) Given 04/25/2024 9:06 AM EDT 1 Packet potassium and sodium phosphate (Phos-Nak) oral powder 1 Packet 1 Packet, Oral, ONCE, On Wed04/26/24 at 1845, For 1 dose, Mix 1 packet in 2.5 ounces (75 mL) of water, stir well and administer promptly. 1 packet contains Phosphorus 250 mg (~8 mMoles) + potassium 280 mg (~7.125 mEq) + sodium 160mg (~7.125 mEq) Given 04/26/2024 9:30 PM EDT 1 Packet potassium and sodium phosphate (Phos-Nak) oral powder 1 Packet 1 Packet, Oral, ONCE, On Wed04/27/24 at 1530, For 1 dose, Mix 1 packet in 2.5 ounces (75 mL) of water, stir well and administer promptly. 1 packet contains Phosphorus 250 mg (~8 mMoles) + potassium 280 mg (~7.125 mEq) + sodium 160mg (~7.125 mEq) Given 04/27/2024 4:11 PM EDT 1 Packet potassium and sodium phosphate (Phos-Nak) oral powder 2 Packet 2 Packet, Oral, ONCE, On Wed04/24/24 at 0815, For 1 dose, Mix 1 packet in 2.5 ounces (75 mL) of water, stir well and administer promptly. 1 packet contains Phosphorus 250 mg (~8 mMoles) + potassium 280 mg (~7.125 mEq) + sodium 160mg (~7.125 mEq) Given 04/24/2024 9:20 AM EDT 2 Packets potassium chloride ER tab 20 mEq 20 mEq, Oral, ONCE, On Wed04/23/24 at 0800, For 1 dose, This med should NOT be Crushed or Chewed Given 04/23/2024 8:16 AM EDT 20 mEq risperiDONE (RisperDAL) tab 0.5 mg 0.5 mg, Oral, TID 06;12;18, First dose on Wed05/03/24 at 1800, Until Discontinued Given 06/01/2024 11:26 AM EDT 0.5 mg Given 06/01/2024 6:49 AM EDT 0.5 mg Given 05/31/2024 5:46 PM EDT 0.5 mg senna-docusate (Senokot-S) 1 Tablet 1 Tablet, Oral, BID (.AM/PM), First dose (after last modification) on Wed04/20/24 at 2100, Until Discontinued Given 06/01/2024 7:54 AM EDT 1 Tablet Given 05/31/2024 10:20 PM EDT 1 Tablet Given 05/31/2024 8:05 AM EDT 1 Tablet Simethicone (Mylicon) chew tab 80 mg 80 mg, Oral, Q6H PRN Gas, Starting on Wed05/15/24 at 2045, Until Wed06/01/24 at 1541, Tablets need to be chewed before swallowing! Given 05/22/2024 9:11 PM EDT 80 mg Given 05/15/2024 9:15 PM EDT 80 mg SMOG enema 300 mL, Rectal, ONCE, On Wed05/16/24 at 0915, For 1 dose Given 05/16/2024 10:35 AM EDT 300 mL sodium chloride 0.9 % flush peripheral alicja 3 mL 3 mL, IV Push, Q8H, First dose on 04/22/24 at 2200, Until Discontinued, Do not flush if lock, PICC, or central line not in place; IV infusing or unable to flush. Given 05/28/2024 2:00 PM EDT 3 mL Given 05/27/2024 2:00 PM EDT 3 mL Given 05/27/2024 6:00 AM EDT 3 mL sodium chloride 0.9 % flush/inj 10 mL 10 mL, IV Push, Q8H, First dose on Wed04/25/24 at 1600, Until Discontinued, To each lumen if no medications are ordered. And before and after drawing labs from PICC catheter. Given 06/01/2024 6:00 AM EDT 10 mL Given 05/31/2024 10:00 PM EDT 10 mL Given 05/31/2024 1:44 PM EDT 10 mL sodium chloride 0.9 % flush/inj 3 mL 3 mL, IV Push, PRN Other, Line Patency, Starting on Wed04/20/24 at 1908, Until Wed06/01/24 at 1541, Do not flush if lock, PICC, or central line not in place, IV infusing or unable to flush Given 04/20/2024 10:10 PM EDT 3 mL Vancomycin (Vancocin) 1,250 mg in NSS 250 mL ivpb 1,250 mg, IV Piggyback, Q12H, First dose on Wed04/21/24 at 1000, Until Discontinued New 04/21/2024 9:56 AM EDT 1,250 mg 178.33 mL/hr Vancomycin (Vancocin) 1,250 mg in NSS 250 mL ivpb 1,250 mg, IV Piggyback, Q8HNOW, First dose (after last modification) on Wed04/23/24 at 0900, Until Discontinued New Bag 04/25/2024 9:20 AM EDT 1,250 mg 178.33 mL/hr New Bag 04/25/2024 1:27 AM EDT 1,250 mg 178.33 mL/hr Rate Verify 04/24/2024 6:44 PM EDT 833.3 mg/hr 178 mL/hr Vancomycin (Vancocin) 1,750 mg in NSS 500 mL ivpb 1,750 mg, IV Piggyback, ONCE, 1 dose, On Wed04/20/24 at 2000 New Bag 04/20/2024 10:11 PM EDT 1,750 mg 263.75 mL/hr Vancomycin (Vancocin) 1,750 mg in NSS 500 mL ivpb 1,750 mg, IV Piggyback, ONCE, 1 dose, On Wed04/22/24 at 2045 Rate Verify 04/22/2024 10:00 PM EDT 875 mg/hr 263.5 mL/hr New Bag 04/22/2024 9:09 PM EDT 1,750 mg 263.75 mL/hr documented in this encounter Active and Recently Administered Medications Times are shown in EDT. Scheduled Medication Order 05/30/2024 05/31/2024 06/01/2024 ceFAZolin in dextrose (Ancef) ivpb 2 g 2 g, IV Piggyback, Q8H, 122 doses, First dose (after last modification) on Wed05/05/24 at 0930, Last dose on Wed06/14/24 at 1400 0523 (New Bag - Provider: Cassie Handy RN)1504 (New Bag - Provider: Meli Li RN)1534 (Stopped - Provider: Meli Li RN)2000 (New Bag - Provider: Ani Crystal RN)2031 (Stopped - Provider: Ani Crystal RN) 0514 (New Bag - Provider: Ani Crystal RN)0544 (Stopped - Provider: Ani Crystal RN)1347 (New Bag - Provider: Meli Li RN)1417 (Stopped - Provider: Meli Li RN)2226 (New Bag - Provider: Reagan Son, TEE)2256 (Stopped - Provider: Reagan Son RN) 0654 (New Bag - Provider: Reagan Son RN)0724 (Stopped - Provider: Karlos Ivy, TEE) chlorhexidine gluconate cloth 2 % pad External, [id number], First dose on Wed04/26/24 at 1000, Until Discontinued, Applied to appropriate patients per oracle e business developer's recommendations following daily care. May use more than one Pad (cloth/wipe) as needed to complete care. 0754 (Given - Provider: Meli Li RN) 0805 (Given - Provider: Meli Li RN) 0754 (Given - Provider: Karlos Ivy, TEE) hEParin inj 5,000 Units 5,000 Units, Subcutaneous, Q8H, First dose on Wed04/23/24 at 2200, Until Discontinued 0518 (Given - Provider: Cassie Handy RN)1459 (Given - Provider: Meli Li, TEE)2000 (Given - Provider: Ani Crystal RN) 0514 (Given - Provider: Ani Crystal, TEE)1344 (Given - Provider: Meli Li RN)2223 (Given - Provider: Reagan Son RN) 0649 (Given - Provider: Reagan Son RN) Lidocaine (Aspercreme) 4 % patch 2 Patch 2 Patch, Transdermal, Daily(AM), First dose (after last modification) on Wed04/29/24 at 2030, Until Discontinued, Apply patch for 12 hours then remove for 12 hours! Remove any Lidocaine patches the patient may currently be wearing prior to applying the new patch 0900 (Not Given - Provider: Meli Li RN - Reason: Refused-Notify Provider - Comment: Dr. Goran Mix made aware via tiger text) 0900 (Not Given - Provider: Meli Li RN - Reason: Refused-Notify Provider - Comment: Dr. Nury Ely made aware) 0900 (Not Given - Provider: Karlos Ivy RN - Reason: Refused-Notify Provider) melatonin tab 3 mg 3 mg, Oral, HS, First dose on Wed04/21/24 at 0230, Until Discontinued 2002 (Given - Provider: Ani Crystal RN) 222 (Given - Provider: Reagan Son RN) Polyethylene Glycol 3350 (Miralax) oral powder 17 g 17 g (1 Packet), Oral, Daily(AM), First dose on Wed04/21/24 at 0900, Until Discontinued, Mix in 8 oz of water, juice, soda, coffee, or tea. 0753 (Given - Provider: Meli Li RN) 0805 (Given - Provider: Meli Li RN) 0754 (Given - Provider: Karlos Ivy RN) risperiDONE (RisperDAL) tab 0.5 mg 0.5 mg, Oral, TID 06;12;18, First dose on Wed05/03/24 at 1800, Until Discontinued 0518 (Given - Provider: Cassie Handy RN)1146 (Given - Provider: Meli Li RN)1755 (Given - Provider: Meli Li RN) 0517 (Given - Provider: Ani Crystal RN)1212 (Given - Provider: Meli Li RN)1746 (Given - Provider: SN Aashish) 0649 (Given - Provider: Reagan Son RN)1126 (Given - Provider: Karlos Ivy RN) senna-docusate (Senokot-S) 1 Tablet 1 Tablet, Oral, BID (.AM/PM), First dose (after last modification) on Wed04/20/24 at 2100, Until Discontinued 0753 (Given - Provider: Meli Li RN)2001 (Given - Provider: Ani Crystal RN) 0805 (Given - Provider: Meli Li RN)2220 (Given - Provider: Reagan Son RN) 0754 (Given - Provider: Karlos Ivy RN) sodium chloride 0.9 % flush peripheral alicja 3 mL 3 mL, IV Push, Q8H, First dose on Wed04/22/24 at 2200, Until Discontinued, Do not flush if lock, PICC, or central line not in place; IV infusing or unable to flush. 0600 (Not Given - Provider: Cassie Handy RN - Reason: Parameter(s) Not Met)1400 (Not Given - Provider: Meli Li RN - Reason: Parameter(s) Not Met)2200 (Not Given - Provider: Ani Crystal RN - Reason: Parameter(s) Not Met) 0509 (Not Given - Provider: Ani Crystal RN - Reason: Parameter(s) Not Met)1400 (Not Given - Provider: Meli Li RN - Reason: Parameter(s) Not Met)2200 (Not Given - Provider: Reagan Son RN - Reason: Parameter(s) Not Met - Comment: No PIV) 0600 (Not Given - Provider: Reagan Son RN - Reason: Parameter(s) Not Met - Comment: No PIV) sodium chloride 0.9 % flush/inj 10 mL 10 mL, IV Push, Q8H, First dose on Wed04/25/24 at 1600, Until Discontinued, To each lumen if no medications are ordered. And before and after drawing labs from PICC catheter. 0600 (Given - Provider: Cassie Handy, RN)1400 (Given - Provider: Meli Li RN)1958 (Given - Provider: Ani Crystal, TEE) 0514 (Given - Provider: Ani Crystal RN)1344 (Given - Provider: Meli Li RN)2200 (Given - Provider: Reagan Son, TEE) 0600 (Given - Provider: Reagan Son, RN) PRN Medication Order 05/30/2024 05/31/2024 06/01/2024 Acetaminophen (Tylenol) tab 650 mg 650 mg, Oral, Q4H PRN Pain, Moderate, Fever (Temp Greater than ), Pain, Mild, 99.9, Starting on Wed04/21/24 at 1606, Until Wed06/01/24 at 1541, Maximum of 4 grams (4000 mg) per day. 0118 (Given - Provider: Cassie Handy RN) 0517 (Given - Provider: Ani Crystal RN)2220 (Given - Provider: Reagan Son RN) 0657 (Given - Provider: Reagan Son RN) Alteplase (Cathflo Activase) inj 2 mg 2 mg, IV Push, PRN line occlusion , Starting on Wed04/25/24 at 1522, Until Wed06/01/24 at 1541, For 15 doses, For use in Catheter occlusion to be administered by IV Therapy nurses only at [facility] At [facility]: IV Therapy PICC RN, Nursing Subeditor, MSICU RN's and Emergency Department RN's *Obtain Alteplase (CathFlo Activase) *Reconstitute Alteplase (CathFlo Activase) 2mg in 2.2ml sterile water *Instill Alteplase (CathFlo Activase) into occluded lumen(s) *After 30 minutes dwell time in catheter, assess catheter patency by attempting to aspirate blood. If catheter is patent withdraw 4-5 ml of blood to remove Alteplase (CathFlo Activase) and residual clot. Flush lumen with 10ml 0.9% normal saline *If catheter function is not restored allow for further dwell up to 120 minutes. *If catheter function is not restored, a second dose of Alteplase (CathFlo Activase) may be administered. *if catheter is stll not restored call a physician Bisacodyl (Dulcolax) supp 10 mg 10 mg, Rectal, DAILY PRN Constipation, Starting on Wed04/20/24 at 1917, Until Wed06/01/24 at 1541 diphenhydrAMINE (Benadryl) cap 25 mg 25 mg, Oral, Q6H PRN Itching, Starting on Wed05/12/24 at 1856, Until Wed06/01/24 at 1541 hEParin 100 UNIT/ML Lock Flush inj 300 Units 300 Units (3 mL), IV Push, PRN Other, PICC Line, Starting on Wed04/25/24 at 1522, Until Wed06/01/24 at 1541, For 1 dose, Prior to discharge, to each lumen hydrocortisone 1 % cream Topical, BID PRN Itching, Starting on Wed04/28/24 at 0434, Until Wed06/01/24 at 1541, Apply to itching Lidocaine 1 % (PF) inj 1 mL 1 mL, Intradermal, PRN Other, Line Insertion, Starting on Wed04/25/24 at 1522, Until Wed06/01/24 at 1541, For 1 dose Simethicone (Mylicon) chew tab 80 mg 80 mg, Oral, Q6H PRN Gas, Starting on Wed05/15/24 at 2045, Until Wed06/01/24 at 1541, Tablets need to be chewed before swallowing! sodium chloride 0.9 % flush/inj 3 mL 3 mL, IV Push, PRN Other, Line Patency, Starting on Wed04/20/24 at 1908, Until Wed06/01/24 at 1541, Do not flush if lock, PICC, or central line not in place, IV infusing or unable to flush documented in this encounter Advance Directives * [...] the patient have Health Care Power of Rotary Soil Stabilizer? No * No Code Date Activated Date Inactivated Comments 04/20/2024 7:15 PM 04/22/2024 6:14 PM This order r eflects the patients wishes and were consensually agreed upon. Question Answer Comments Discussion of Advance Directives occurred with: Patient
--- OUTSIDE RECORDS SUMMARY | 2024-06-21 19:59 | External Medical Summary ---
Author Name Unknown Address Unknown Organization [id number]:LABORATORY [facility] [place] - [facility] [address] [facility] [address] Laboratory Report Ordering Provider Test Date Status SEBASTIAN DENNY 05/15/2024 07:13:00 Final Observation Date Value Abnormality Reference (Units ) Status WBC, Total 05/15/2024 07:13:00 6.08 4.00-10.80 (K/uL) Final RBC 05/15/2024 07:13:00 3.31 3.85-5.15 (M/uL) Final Hemoglobin 05/15/2024 07:13:00 10.1 Below low normal 12.0-15.3 (g/dL) Final HCT 05/15/2024 07:13:00 32.1 Below low normal 36.0-45.2 (%) Final MCV 05/15/2024 07:13:00 97.0 81.5-97.5 (fL) Final MCH 05/15/2024 07:13:00 30.5 27.0-34.0 (pg) Final MCHC 05/15/2024 07:13:00 31.5 32.0-36.0 (g/dL) Final RDW 05/15/2024 07:13:00 15.6 11.5-15.5 (%) Final Platelets 05/15/2024 07:13:00 230 140-400 (K/uL) Final MPV 05/15/2024 07:13:00 10.3 6.6-11.1 (fL) Final Nucleated erythrocytes/100 leukocytes [Ratio] in Blood by Automated count 05/15/2024 07:13:00 0 <=0 (/100 WBCs) Final Performing Location LABORATORY [facility] [place] - [address] [place] [address]
--- OUTSIDE RECORDS SUMMARY | 2024-06-21 19:59 | External Medical Summary ---
Author Name Unknown Address Unknown Organization K01:LABORATORY [facility] [place] - [address] [place] [address] Laboratory Report Ordering Provider Test Date Status SEBASTIAN DENNY 05/03/2024 20:16:00 Final Observation Date Value Abnormality Reference (Units ) Status Magnesium 05/03/2024 20:16:00 2.1 1.5-2.6 (m g/dL) Final Performing Location LABORATORY [facility] - [address] [place] [address]
--- OUTSIDE RECORDS SUMMARY | 2024-06-21 19:59 | External Medical Summary ---
Author Name Unknown Address Unknown Organization [id number]:LABORATORY [facility] [place] - [facility] [address] [facility] [address] Laboratory Report Ordering Provider Test Date Status SEBASTIAN DENNY 05/31/2024 06:07:00 Final Observation Date Value Abnormality Reference (Units ) Status WBC, Total 05/31/2024 06:07:00 4.80 4.00-10.80 (K/uL) Final RBC 05/31/2024 06:07:00 3.69 3.85-5.15 (M/uL) Final Hemoglobin 05/31/2024 06:07:00 11.2 Below low normal 12.0-15.3 (g/dL) Final HCT 05/31/2024 06:07:00 35.6 Below low normal 36.0-45.2 (%) Final MCV 05/31/2024 06:07:00 96.5 81.5-97.5 (fL) Final MCH 05/31/2024 06:07:00 30.4 27.0-34.0 (pg) Final MCHC 05/31/2024 06:07:00 31.5 32.0-36.0 (g/dL) Final RDW 05/31/2024 06:07:00 14.8 11.5-15.5 (%) Final Platelets 05/31/2024 06:07:00 283 140-400 (K/uL) Final MPV 05/31/2024 06:07:00 9.8 6.6-11.1 (fL) Final Nucleated erythrocytes/100 leukocytes [Ratio] in Blood by Automated count 05/31/2024 06:07:00 0 <=0 (/100 WBCs) Final Performing Location LABORATORY [facility] [place] - [address] [place] [address]
--- OUTSIDE RECORDS SUMMARY | 2024-06-21 19:59 | External Medical Summary ---
Author Name Unknown Address Unknown Organization K01:LABORATORY [facility] [place] - [address] [place] [address] Laboratory Report Ordering Provider Test Date Status SEBASTIAN DENNY 05/12/2024 06:01:00 Final Observation Date Value Abnormality Reference (Units ) Status BUN 05/12/2024 06:01:00 14 6-20 (mg/dL) Final Creatinine 05/12/2024 06:01:00 0.5 0.5-1.0 (mg/dL) Final Glomerular filtration rate/1.73 sq M.predicted [Volume Rate/Area] in Serum, Plasma or Blood by Creatinine-based formula (CKD-EPI) 05/12/2024 06:01:00 >90 >=60 (mL/min) Final eGFR is calculated based on the CKD-EPI 2020 equation. Sodium 05/12/2024 06:01:00 137 135-146 (m mol/L) Final Potassium 05/12/2024 06:01:00 4.0 3.5-5.1 (m mol/L) Final Cl 05/12/2024 06:01:00 102 98-107 (mm ol/L) Final CO2 05/12/2024 06:01:00 25 22-32 (mmo l/L) Final Anion gap 05/12/2024 06:01:00 10 7-15 (mmol /L) Final Glucose 05/12/2024 06:01:00 96 70-120 (mg /dL) Final Calcium 05/12/2024 06:01:00 9.1 8.4-10.2 ( mg/dL) Final Performing Location LABORATORY [facility] [place] - [address] [place] [address]
--- OUTSIDE RECORDS SUMMARY | 2024-06-21 19:59 | External Medical Summary ---
Author Name Unknown Address Unknown Organization K01:[place] [facility] [place] [facility] [address] [facility] [address] Laboratory Report Ordering Provider Test Date Status SEBASTIAN DENNY 05/08/2024 07:07:00 Final Observation Date Value Abnormality Reference (Units ) Status WBC, Total 05/08/2024 07:07:00 4.70 4.00-10.80 (K/uL) Final RBC 05/08/2024 07:07:00 3.14 3.85-5.15 (M/uL) Final Hemoglobin 05/08/2024 07:07:00 9.6 Below low normal 12.0-15.3 (g/dL) Final HCT 05/08/2024 07:07:00 30.5 Below low normal 36.0-45.2 (%) Final MCV 05/08/2024 07:07:00 97.1 81.5-97.5 (fL) Final MCH 05/08/2024 07:07:00 30.6 27.0-34.0 (pg) Final MCHC 05/08/2024 07:07:00 31.5 32.0-36.0 (g/dL) Final RDW 05/08/2024 07:07:00 15.7 11.5-15.5 (%) Final Platelets 05/08/2024 07:07:00 343 140-400 (K/uL) Final MPV 05/08/2024 07:07:00 10.7 6.6-11.1 (fL) Final Nucleated erythrocytes/100 leukocytes [Ratio] in Blood by Automated count 05/08/2024 07:07:00 0 <=0 (/100 WBCs) Final Performing Location [facility] [place] [address] [place] [address]
--- OUTSIDE RECORDS SUMMARY | 2024-06-21 19:59 | External Medical Summary ---
Author Name Unknown Address Unknown Organization K01:LABORATORY [facility] [place] - [address] [place] [address] Laboratory Report Ordering Provider Test Date Status SEBASTIAN DENNY 05/24/2024 06:43:00 Final Observation Date Value Abnormality Reference (Units ) Status BUN 05/24/2024 06:43:00 14 6-20 (mg/dL) Final Creatinine 05/24/2024 06:43:00 0.5 0.5-1.0 (mg/dL) Final Glomerular filtration rate/1.73 sq M.predicted [Volume Rate/Area] in Serum, Plasma or Blood by Creatinine-based formula (CKD-EPI) 05/24/2024 06:43:00 >90 >=60 (mL/min) Final eGFR is calculated based on the CKD-EPI 2020 equation. Sodium 05/24/2024 06:43:00 135 135-146 (m mol/L) Final Potassium 05/24/2024 06:43:00 4.1 3.5-5.1 (m mol/L) Final Cl 05/24/2024 06:43:00 101 98-107 (mm ol/L) Final CO2 05/24/2024 06:43:00 25 22-32 (mmo l/L) Final Anion gap 05/24/2024 06:43:00 9 7-15 (mmol /L) Final Glucose 05/24/2024 06:43:00 100 70-120 (mg /dL) Final Calcium 05/24/2024 06:43:00 9.4 8.4-10.2 ( mg/dL) Final Performing Location LABORATORY [facility] [place] - [address] [place] [address]
--- OUTSIDE RECORDS SUMMARY | 2024-06-21 19:59 | External Medical Summary ---
Author Name Unknown Address Unknown Organization K01:LABORATORY [facility] [place] - [facility] [address] [facility] [address] [facility] [address] Laboratory Report Ordering Provider Test Date Status SEBASTIAN DENNY 05/19/2024 06:33:00 Final Observation Date Value Abnormality Reference (Units ) Status WBC, Total 05/19/2024 06:33:00 6.28 4.00-10.80 (K/uL) Final RBC 05/19/2024 06:33:00 3.32 3.85-5.15 (M/uL) Final Hemoglobin 05/19/2024 06:33:00 10.2 Below low normal 12.0-15.3 (g/dL) Final HCT 05/19/2024 06:33:00 31.9 Below low normal 36.0-45.2 (%) Final MCV 05/19/2024 06:33:00 96.1 81.5-97.5 (fL) Final MCH 05/19/2024 06:33:00 30.7 27.0-34.0 (pg) Final MCHC 05/19/2024 06:33:00 32.0 32.0-36.0 (g/dL) Final RDW 05/19/2024 06:33:00 16.1 11.5-15.5 (%) Final Platelets 05/19/2024 06:33:00 222 140-400 (K/uL) Final MPV 05/19/2024 06:33:00 10.5 6.6-11.1 (fL) Final Nucleated erythrocytes/100 leukocytes [Ratio] in Blood by Automated count 05/19/2024 06:33:00 0 <=0 (/100 WBCs) Final Performing Location LABORATORY [facility] [place] - [address] [place] [address]
--- OUTSIDE RECORDS SUMMARY | 2024-06-21 19:59 | External Medical Summary ---
Author Name Unknown Address Unknown Organization K01:[facility] [place] - [address] [place] [address] [address] [facility] [address] Laboratory Report Ordering Provider Test Date Status SEBASTIAN DENNY 05/17/2024 05:39:00 Final Observation Date Value Abnormality Reference (Units ) Status WBC, Total 05/17/2024 05:39:00 6.62 4.00-10.80 (K/uL) Final RBC 05/17/2024 05:39:00 3.22 3.85-5.15 (M/uL) Final Hemoglobin 05/17/2024 05:39:00 9.8 Below low normal 12.0-15.3 (g/dL) Final HCT 05/17/2024 05:39:00 30.6 Below low normal 36.0-45.2 (%) Final MCV 05/17/2024 05:39:00 95.0 81.5-97.5 (fL) Final MCH 05/17/2024 05:39:00 30.4 27.0-34.0 (pg) Final MCHC 05/17/2024 05:39:00 32.0 32.0-36.0 (g/dL) Final RDW 05/17/2024 05:39:00 16.1 11.5-15.5 (%) Final Platelets 05/17/2024 05:39:00 215 140-400 (K/uL) Final MPV 05/17/2024 05:39:00 10.5 6.6-11.1 (fL) Final Nucleated erythrocytes/100 leukocytes [Ratio] in Blood by Automated count 05/17/2024 05:39:00 0 <=0 (/100 WBCs) Final Performing Location LAB[facility]ORY [facility] [place] - [address] [place] [address]
--- OUTSIDE RECORDS SUMMARY | 2024-06-21 19:59 | External Medical Summary ---
Author Name Unknown Address Unknown Organization K01:[facility] [place] [facility] [address] [place] [place] [address] Laboratory Report Ordering Provider Test Date Status SEBASTIAN DENNY 05/15/2024 07:13:00 Final Observation Date Value Abnormality Reference (Units ) Status BUN 05/15/2024 07:13:00 11 6-20 (mg/dL) Final Creatinine 05/15/2024 07:13:00 0.5 0.5-1.0 (mg/dL) Final Glomerular filtration rate/1.73 sq M.predicted [Volume Rate/Area] in Serum, Plasma or Blood by Creatinine-based formula (CKD-EPI) 05/15/2024 07:13:00 >90 >=60 (mL/min) Final eGFR is calculated based on the CKD-EPI 2020 equation. Sodium 05/15/2024 07:13:00 136 135-146 (m mol/L) Final Potassium 05/15/2024 07:13:00 4.0 3.5-5.1 (m mol/L) Final Cl 05/15/2024 07:13:00 100 98-107 (mm ol/L) Final CO2 05/15/2024 07:13:00 24 22-32 (mmo l/L) Final Anion gap 05/15/2024 07:13:00 12 7-15 (mmol /L) Final Glucose 05/15/2024 07:13:00 144 Above high normal 70 -120 (mg/dL) Final Calcium 05/15/2024 07:13:00 9.3 8.4-10.2 ( mg/dL) Final Performing Location [facility] [place] - [address] [place] [address]
--- OUTSIDE RECORDS SUMMARY | 2024-06-21 19:59 | External Medical Summary ---
Author Name Unknown Address Unknown Organization K01:LABORATORY [facility] [place] - [facility] [address] [facility] [address] Laboratory Report Ordering Provider Test Date Status SEBASTIAN DENNY 05/26/2024 07:09:00 Final Observation Date Value Abnormality Reference (Units ) Status WBC, Total 05/26/2024 07:09:00 5.40 4.00-10.80 (K/uL) Final RBC 05/26/2024 07:09:00 3.51 3.85-5.15 (M/uL) Final Hemoglobin 05/26/2024 07:09:00 10.7 Below low normal 12.0-15.3 (g/dL) Final HCT 05/26/2024 07:09:00 34.7 Below low normal 36.0-45.2 (%) Final MCV 05/26/2024 07:09:00 98.9 81.5-97.5 (fL) Final MCH 05/26/2024 07:09:00 30.5 27.0-34.0 (pg) Final MCHC 05/26/2024 07:09:00 30.8 32.0-36.0 (g/dL) Final RDW 05/26/2024 07:09:00 15.6 11.5-15.5 (%) Final Platelets 05/26/2024 07:09:00 245 140-400 (K/uL) Final MPV 05/26/2024 07:09:00 10.0 6.6-11.1 (fL) Final Nucleated erythrocytes/100 leukocytes [Ratio] in Blood by Automated count 05/26/2024 07:09:00 0 <=0 (/100 WBCs) Final Performing Location LABORATORY [facility] [place] - [address] [place] [address]
--- OUTSIDE RECORDS SUMMARY | 2024-06-21 19:59 | External Medical Summary ---
Author Name Unknown Address Unknown Organization K01:LABORATORY [facility] [place] [place] - [address] [place] [address] Laboratory Report Ordering Provider Test Date Status SEBASTIAN DENNY 05/29/2024 07:25:00 Final Observation Date Value Abnormality Reference (Units ) Status BUN 05/29/2024 07:25:00 13 6-20 (mg/dL) Final Creatinine 05/29/2024 07:25:00 0.5 0.5-1.0 (mg/dL) Final Glomerular filtration rate/1.73 sq M.predicted [Volume Rate/Area] in Serum, Plasma or Blood by Creatinine-based formula (CKD-EPI) 05/29/2024 07:25:00 >90 >=60 (mL/min) Final eGFR is calculated based on the CKD-EPI 2020 equation. Sodium 05/29/2024 07:25:00 136 135-146 (m mol/L) Final Potassium 05/29/2024 07:25:00 4.3 3.5-5.1 (m mol/L) Final Cl 05/29/2024 07:25:00 102 98-107 (mm ol/L) Final CO2 05/29/2024 07:25:00 23 22-32 (mmo l/L) Final Anion gap 05/29/2024 07:25:00 11 7-15 (mmol /L) Final Glucose 05/29/2024 07:25:00 92 70-120 (mg /dL) Final Calcium 05/29/2024 07:25:00 9.5 8.4-10.2 ( mg/dL) Final Performing Location LABORATORY [facility] [place] [place] - [address] [place] [address]
--- OUTSIDE RECORDS SUMMARY | 2024-06-21 19:59 | External Medical Summary ---
Author Name Unknown Address Unknown Organization K01:LABORATORY [place] - [address] [place] [address] Laboratory Report Ordering Provider Test Date Status SEBASTIAN DENNY 05/05/2024 07:55:00 Final Observation Date Value Abnormality Reference (Units ) Status BUN 05/05/2024 07:55:00 21 Above high normal 6-20 (mg/dL) Final Creatinine 05/05/2024 07:55:00 0.5 0.5-1.0 (mg/dL) Final Glomerular filtration rate/1.73 sq M.predicted [Volume Rate/Area] in Serum, Plasma or Blood by Creatinine-based formula (CKD-EPI) 05/05/2024 07:55:00 >90 >=60 (mL/min) Final eGFR is calculated based on the CKD-EPI 2020 equation. Sodium 05/05/2024 07:55:00 137 135-146 (m mol/L) Final Potassium 05/05/2024 07:55:00 3.9 3.5-5.1 (m mol/L) Final Cl 05/05/2024 07:55:00 100 98-107 (mm ol/L) Final CO2 05/05/2024 07:55:00 21 Below low normal 22- 32 (mmol/L) Final Anion gap 05/05/2024 07:55:00 16 Above high normal 7- 15 (mmol/L) Final Glucose 05/05/2024 07:55:00 91 70-120 (mg /dL) Final Calcium 05/05/2024 07:55:00 9.5 8.4-10.2 ( mg/dL) Final Performing Location LABORATORY [place] - [address] [place] [address]
--- OUTSIDE RECORDS SUMMARY | 2024-06-21 19:59 | External Medical Summary ---
Author Name Unknown Address Unknown Organization K01:[facility]ORY [facility] [place] - [address] [facility] [address] Laboratory Report Ordering Provider Test Date Status SEBASTIAN DENNY 05/03/2024 20:16:00 Final Observation Date Value Abnormality Reference (Units ) Status Body temperature 05/03/2024 20:16:00 37.0 (C) Final pH of Venous blood 05/03/2024 20:16:00 7.417 7.320-7.430 (units) Final Carbon dioxide [Partial pressure] in Venous blood 05/03/2024 20:16:00 33.7 Below low normal 40.0-60.0 (mmHg) Final Oxygen [Partial pressure] in Venous blood 05/03/2024 20:16:00 40.4 25.0-50.0 (mmHg) Final Base excess, Capillary 05/03/2024 20:16:00 -2.2 Below low normal -2.0-2.0 (mmol/L) Final Hemoglobin [Mass/volume] in Blood by Oximetry 05/03/2024 20:16:00 10.3 Below low normal 12.0-15.3 (g/dL) Final Oxyhemoglobin, Venous (FO2HB) 05/03/2024 20:16:00 69.3 40.0-85.0 (% total Hgb) Final Carboxyhemoglobin 05/03/2024 20:16:00 1.3 <=1.5 (% total Hgb) Final Smokers: 0-9.0 % Methemoglobin 05/03/2024 20:16:00 0.6 <= 1.5 (% total Hgb) Final Deoxyhemoglobin/Hemoglo bin.total in Venous blood 05/03/2024 20:16:00 28.8 (% total Hgb) Final Oxygen content in Venous blood 05/03/2024 20:16:00 10.1 7.0-18.0 (%vol) Final Bicarbonate, Venous, POC (i-STAT) 05/03/2024 20:16:00 21.3 Below low normal 23.0-31.0 (mmol/L) Final Performing Location LAB[facility] [place] - [facility] [place] [address]
--- OUTSIDE RECORDS SUMMARY | 2024-06-21 19:59 | External Medical Summary ---
Author Name Unknown Address Unknown Organization K01:LABORATORY [facility] [place] - [facility] [address] [facility] [place] [address] Laboratory Report Ordering Provider Test Date Status SEBASTIAN DENNY 05/08/2024 07:07:00 Final Observation Date Value Abnormality Reference (Units ) Status BUN 05/08/2024 07:07:00 10 6-20 (mg/dL) Final Creatinine 05/08/2024 07:07:00 0.5 0.5-1.0 (mg/dL) Final Glomerular filtration rate/1.73 sq M.predicted [Volume Rate/Area] in Serum, Plasma or Blood by Creatinine-based formula (CKD-EPI) 05/08/2024 07:07:00 >90 >=60 (mL/min) Final eGFR is calculated based on the CKD-EPI 2020 equation. Sodium 05/08/2024 07:07:00 137 135-146 (m mol/L) Final Potassium 05/08/2024 07:07:00 Final Specimen too hemolyzed. Reor arsh if needed. Cl 05/08/2024 07:07:00 101 98-107 (mm ol/L) Final CO2 05/08/2024 07:07:00 24 22-32 (mmo l/L) Final Anion gap 05/08/2024 07:07:00 12 7-15 (mmol /L) Final Glucose 05/08/2024 07:07:00 106 70-120 (mg /dL) Final Calcium 05/08/2024 07:07:00 9.0 8.4-10.2 ( mg/dL) Final Performing Location LABORATORY [facility] [place] - [address] [facility] [address]
--- OUTSIDE RECORDS SUMMARY | 2024-06-21 20:00 | External Medical Summary ---
Author Name Unknown Address Unknown Organization K01:LABORATORY [facility] - [address] [facility] [place] [address] Laboratory Report Ordering Provider Test Date Status GRACE HEARN 04/29/2024 06:39:00 Final Observation Date Value Abnormality Reference (Units ) Status Phosphate 04/29/2024 06:39:00 3.4 2.5-4.8 (m g/dL) Final Performing Location LAB[facility]ORY [facility] - [address] [facility] [address]
--- OUTSIDE RECORDS SUMMARY | 2024-06-21 20:00 | External Medical Summary ---
Author Name Unknown Address Unknown Organization K01:LABORATORY [facility] [place] - [address] [place] [address] Laboratory Report Ordering Provider Test Date Status GRACE HEARN 04/29/2024 06:39:00 Final Observation Date Value Abnormality Reference (Units ) Status Albumin 04/29/2024 06:39:00 2.8 Below low normal 3.8-5.0 (g/dL) Final AST (Aspartate aminotransferase) 04/29/2024 06:39:00 58 Above high normal 10-35 (U/L) Final Alk Phos 04/29/2024 06:39:00 158 Above high normal 35-130 (U/L) Final ALT (Alanine aminotransferase) 04/29/2024 06:39:00 33 10-35 (U/L) Final Bilirubin, Total 04/29/2024 06:39:00 0.4 <=1.2 (mg/dL) Final Bilirubin, Direct 04/29/2024 06:39:00 <0.2 0.0-0.3 (mg/dL) Final Protein 04/29/2024 06:39:00 5.8 Below low normal 6.0-8.3 (g/dL) Final Performing Location LABORATORY [facility] [place] - [address] [place] [address]
--- OUTSIDE RECORDS SUMMARY | 2024-06-21 20:00 | External Medical Summary ---
Author Name Unknown Address Unknown Organization K01:LABORATORY [place] [address] [address] [facility] [place] [address] Laboratory Report Ordering Provider Test Date Status GRACE HEARN 04/29/2024 06:39:00 Final Observation Date Value Abnormality Reference (Units ) Status Calcium.ionized [Moles/volume] in Serum or Plasma by Ion-selective membrane electrode (ISE) 04/29/2024 06:39:00 1.24 1.13-1.32 (mmol/L) Final This test was developed and its performance characteristics dtermined by [employer]. It has not been cleared or approved by the [place] Food and Drug Administration Performing Location LABORATORY [place] [address] [place] [address]
--- OUTSIDE RECORDS SUMMARY | 2024-06-21 20:00 | External Medical Summary ---
Author Name Unknown Address Unknown Organization K01:LABORATORY [facility] [place] - [address] [place] [address] Laboratory Report Ordering Provider Test Date Status GRACE HEARN 04/27/2024 07:33:00 Final Observation Date Value Abnormality Reference (Units ) Status BUN 04/27/2024 07:33:00 13 6-20 (mg/dL) Final Creatinine 04/27/2024 07:33:00 0.5 0.5-1.0 (mg/dL) Final Glomerular filtration rate/1.73 sq M.predicted [Volume Rate/Area] in Serum, Plasma or Blood by Creatinine-based formula (CKD-EPI) 04/27/2024 07:33:00 >90 >=60 (mL/min) Final eGFR is calculated based on the CKD-EPI 2020 equation. Sodium 04/27/2024 07:33:00 139 135-146 (m mol/L) Final Potassium 04/27/2024 07:33:00 3.8 3.5-5.1 (m mol/L) Final Cl 04/27/2024 07:33:00 101 98-107 (mm ol/L) Final CO2 04/27/2024 07:33:00 25 22-32 (mmo l/L) Final Anion gap 04/27/2024 07:33:00 13 7-15 (mmol /L) Final Glucose 04/27/2024 07:33:00 83 70-120 (mg /dL) Final Calcium 04/27/2024 07:33:00 8.3 Below low normal 8.4 -10.2 (mg/dL) Final Performing Location LABORATORY [facility] [place] - [address] [place] [address]
--- OUTSIDE RECORDS SUMMARY | 2024-06-21 20:00 | External Medical Summary ---
Author Name Unknown Address Unknown Organization K01:[place] [facility] [place] [facility] [address] [facility] [address] Laboratory Report Ordering Provider Test Date Status SEBASTIAN DENNY 05/03/2024 20:16:00 Final Observation Date Value Abnormality Reference (Units ) Status WBC, Total 05/03/2024 20:16:00 12.43 Above high normal 4.00-10.80 (K/uL) Final RBC 05/03/2024 20:16:00 3.46 3.85-5.15 (M/uL) Final Hemoglobin 05/03/2024 20:16:00 10.4 Below low normal 12.0-15.3 (g/dL) Final HCT 05/03/2024 20:16:00 33.4 Below low normal 36.0-45.2 (%) Final MCV 05/03/2024 20:16:00 96.5 81.5-97.5 (fL) Final MCH 05/03/2024 20:16:00 30.1 27.0-34.0 (pg) Final MCHC 05/03/2024 20:16:00 31.1 32.0-36.0 (g/dL) Final RDW 05/03/2024 20:16:00 16.4 11.5-15.5 (%) Final Platelets 05/03/2024 20:16:00 607 Above high normal 140-400 (K/uL) Final MPV 05/03/2024 20:16:00 9.9 6.6-11.1 (fL) Final Nucleated erythrocytes/100 leukocytes [Ratio] in Blood by Automated count 05/03/2024 20:16:00 0 <=0 (/100 WBCs) Final Performing Location [place] [facility] [place] [address] [place] [address]
--- OUTSIDE RECORDS SUMMARY | 2024-06-21 20:00 | External Medical Summary ---
Author Name Unknown Address Unknown Organization K01:LABORATORY [facility] - [address] [facility] [place] [address] Laboratory Report Ordering Provider Test Date Status GRACE HEARN 04/29/2024 06:39:00 Final Observation Date Value Abnormality Reference (Units ) Status Magnesium 04/29/2024 06:39:00 2.4 1.5-2.6 (m g/dL) Final Performing Location LAB[facility] - [address] [facility] [address]
--- OUTSIDE RECORDS SUMMARY | 2024-06-21 20:00 | External Medical Summary ---
Author Name Unknown Address Unknown Organization K01:LABORATORY [facility] [place] - [facility] [address] [facility] [address] [facility] [address] Laboratory Report Ordering Provider Test Date Status GRACE HEARN 04/29/2024 06:39:00 Final Observation Date Value Abnormality Reference (Units ) Status WBC, Total 04/29/2024 06:39:00 11.64 Above high normal 4.00-10.80 (K/uL) Final RBC 04/29/2024 06:39:00 2.84 3.85-5.15 (M/uL) Final Hemoglobin 04/29/2024 06:39:00 8.6 Below low normal 12.0-15.3 (g/dL) Final HCT 04/29/2024 06:39:00 27.0 Below low normal 36.0-45.2 (%) Final MCV 04/29/2024 06:39:00 95.1 81.5-97.5 (fL) Final MCH 04/29/2024 06:39:00 30.3 27.0-34.0 (pg) Final MCHC 04/29/2024 06:39:00 31.9 32.0-36.0 (g/dL) Final RDW 04/29/2024 06:39:00 15.9 11.5-15.5 (%) Final Platelets 04/29/2024 06:39:00 764 Above high normal 140-400 (K/uL) Final MPV 04/29/2024 06:39:00 10.8 6.6-11.1 (fL) Final Nucleated erythrocytes/100 leukocytes [Ratio] in Blood by Automated count 04/29/2024 06:39:00 0 <=0 (/100 WBCs) Final Performing Location LABORATORY [facility] [place] - [address] [place] [address]
--- OUTSIDE RECORDS SUMMARY | 2024-06-21 20:00 | External Medical Summary ---
Author Name Unknown Address Unknown Organization K01:LABORATORY [place] [address] [address] [facility] [place] [address] Laboratory Report Ordering Provider Test Date Status GRACE HEARN 04/28/2024 07:24:00 Final Observation Date Value Abnormality Reference (Units ) Status Calcium.ionized [Moles/volume] in Serum or Plasma by Ion-selective membrane electrode (ISE) 04/28/2024 07:24:00 1.14 1.13-1.32 (mmol/L) Final This test was developed and its performance characteristics dtermined by [email or web address]. It has not been cleared or approved by the [place] Food and Drug Administration Performing Location LABORATORY [place] [address] [place] [address]
--- OUTSIDE RECORDS SUMMARY | 2024-06-21 20:00 | External Medical Summary ---
Author Name Unknown Address Unknown Organization K01:[facility] [place] [address] [facility] [place] [address] Laboratory Report Ordering Provider Test Date Status SEBASTIAN DENNY 05/03/2024 20:16:00 Final Observation Date Value Abnormality Reference (Units ) Status BUN 05/03/2024 20:16:00 18 6-20 (mg/dL) Final Creatinine 05/03/2024 20:16:00 0.8 0.5-1.0 (mg/dL) Final Glomerular filtration rate/1.73 sq M.predicted [Volume Rate/Area] in Serum, Plasma or Blood by Creatinine-based formula (CKD-EPI) 05/03/2024 20:16:00 >90 >=60 (mL/min) Final eGFR is calculated based on the CKD-EPI 2020 equation. Sodium 05/03/2024 20:16:00 137 135-146 (m mol/L) Final Potassium 05/03/2024 20:16:00 4.2 3.5-5.1 (m mol/L) Final Cl 05/03/2024 20:16:00 99 98-107 (mm ol/L) Final CO2 05/03/2024 20:16:00 20 Below low normal 22- 32 (mmol/L) Final Anion gap 05/03/2024 20:16:00 18 Above high normal 7- 15 (mmol/L) Final Glucose 05/03/2024 20:16:00 96 70-120 (mg /dL) Final Albumin 05/03/2024 20:16:00 3.4 Below low normal 3.8 -5.0 (g/dL) Final AST (Aspartate aminotransferase) 05/03/2024 20:16:00 28 10-35 (U/L) Fin al Alk Phos 05/03/2024 20:16:00 140 Above high normal 35 -130 (U/L) Final Bilirubin, Total 05/03/2024 20:16:00 0.6 <=1 .2 (mg/dL) Final Calcium 05/03/2024 20:16:00 9.7 8.4-10.2 ( mg/dL) Final Protein 05/03/2024 20:16:00 6.8 6.0-8.3 (g /dL) Final ALT (Alanine aminotransferase) 05/03/2024 20:16:00 18 10-35 (U/L) Rajiv frye Performing Location LABORATORY [facility] [place] - [address] [facility] [address]
--- OUTSIDE RECORDS SUMMARY | 2024-06-21 20:00 | External Medical Summary ---
Author Name Unknown Address Unknown Organization K01:LABORATORY [facility] - [address] [facility] [place] [address] Laboratory Report Ordering Provider Test Date Status GRACE HEARN 04/28/2024 07:24:00 Final Observation Date Value Abnormality Reference (Units ) Status Phosphate 04/28/2024 07:24:00 2.7 2.5-4.8 (m g/dL) Final Performing Location LAB[facility] - [address] [facility] [address]
--- OUTSIDE RECORDS SUMMARY | 2024-06-21 20:00 | External Medical Summary ---
Author Name Unknown Address Unknown Organization K01:[place] [facility] [place] [address] [facility] [place] [address] Laboratory Report Ordering Provider Test Date Status GRACE HEARN 04/27/2024 07:33:00 Final Observation Date Value Abnormality Reference (Units ) Status Magnesium 04/27/2024 07:33:00 2.4 1.5-2.6 (m g/dL) Final Performing Location [facility] - [address] [facility] [address]
--- OUTSIDE RECORDS SUMMARY | 2024-06-21 20:00 | External Medical Summary ---
Author Name Unknown Address Unknown Organization K01:[place]ORY [facility] [place] [address] [place] [address] Laboratory Report Ordering Provider Test Date Status GRACE HEARN 04/28/2024 07:24:00 Final Observation Date Value Abnormality Reference (Units ) Status BUN 04/28/2024 07:24:00 10 6-20 (mg/dL) Final Creatinine 04/28/2024 07:24:00 0.5 0.5-1.0 (mg/dL) Final Glomerular filtration rate/1.73 sq M.predicted [Volume Rate/Area] in Serum, Plasma or Blood by Creatinine-based formula (CKD-EPI) 04/28/2024 07:24:00 >90 >=60 (mL/min) Final eGFR is calculated based on the CKD-EPI 2020 equation. Sodium 04/28/2024 07:24:00 140 135-146 (m mol/L) Final Potassium 04/28/2024 07:24:00 4.3 3.5-5.1 (m mol/L) Final Cl 04/28/2024 07:24:00 103 98-107 (mm ol/L) Final CO2 04/28/2024 07:24:00 26 22-32 (mmo l/L) Final Anion gap 04/28/2024 07:24:00 11 7-15 (mmol /L) Final Glucose 04/28/2024 07:24:00 95 70-120 (mg /dL) Final Calcium 04/28/2024 07:24:00 8.4 8.4-10.2 ( mg/dL) Final Performing Location LABORATORY [facility] [place] - [address] [place] [address]
--- OUTSIDE RECORDS SUMMARY | 2024-06-21 20:00 | External Medical Summary ---
Author Name Unknown Address Unknown Organization [id number]:[facility] [place] [address] [facility] [place] [id number] Laboratory Report Ordering Provider Test Date Status GRACE HEARN 04/27/2024 07:33:00 Final Observation Date Value Abnormality Reference (Units ) Status Calcium.ionized [Moles/volume] in Serum or Plasma by Ion-selective membrane electrode (ISE) 04/27/2024 07:33:00 1.14 1.13-1.32 (mmol/L) Final This test was developed and its performance characteristics dtermined by [employer]. It has not been cleared or approved by the [place] Food and Drug Administration Performing Location [facility] [place] [address] [place] [address]
--- OUTSIDE RECORDS SUMMARY | 2024-06-21 20:00 | External Medical Summary ---
Author Name Unknown Address Unknown Organization K01:[facility] - [address] [facility] [place] [address] Laboratory Report Ordering Provider Test Date Status GRACE HEARN 04/28/2024 07:24:00 Final Observation Date Value Abnormality Reference (Units ) Status Magnesium 04/28/2024 07:24:00 2.5 1.5-2.6 (m g/dL) Final Performing Location [facility]ATORY [facility] - [address] [place] [facility] [id number]
--- OUTSIDE RECORDS SUMMARY | 2024-06-21 20:00 | External Medical Summary ---
Author Name Unknown Address Unknown Organization K01:LABORATORY [facility] [place] - Formerly named [facility] [address] [facility] [address] Laboratory Report Ordering Provider Test Date Status GRACE HEARN 04/28/2024 07:24:00 Final Observation Date Value Abnormality Reference (Units ) Status WBC, Total 04/28/2024 07:24:00 14.49 Above high normal 4.00-10.80 (K/uL) Final RBC 04/28/2024 07:24:00 2.89 3.85-5.15 (M/uL) Final Hemoglobin 04/28/2024 07:24:00 8.8 Below low normal 12.0-15.3 (g/dL) Final HCT 04/28/2024 07:24:00 27.3 Below low normal 36.0-45.2 (%) Final MCV 04/28/2024 07:24:00 94.5 81.5-97.5 (fL) Final MCH 04/28/2024 07:24:00 30.4 27.0-34.0 (pg) Final MCHC 04/28/2024 07:24:00 32.2 32.0-36.0 (g/dL) Final RDW 04/28/2024 07:24:00 15.9 11.5-15.5 (%) Final Platelets 04/28/2024 07:24:00 680 Above high normal 140-400 (K/uL) Final MPV 04/28/2024 07:24:00 11.1 6.6-11.1 (fL) Final Nucleated erythrocytes/100 leukocytes [Ratio] in Blood by Automated count 04/28/2024 07:24:00 0 <=0 (/100 WBCs) Final Performing Location LABORATORY [facility] [place] - [address] [place] [address]
--- OUTSIDE RECORDS SUMMARY | 2024-06-21 20:00 | External Medical Summary ---
Author Name Unknown Address Unknown Organization K01:LABORATORY [place] [address] [facility] [place] [address] Laboratory Report Ordering Provider Test Date Status GRACE HEARN 04/30/2024 07:36:00 Final Observation Date Value Abnormality Reference (Units ) Status Calcium.ionized [Moles/volume] in Serum or Plasma by Ion-selective membrane electrode (ISE) 04/30/2024 07:36:00 1.24 1.13-1.32 (mmol/L) Final This test was developed and its performance characteristics dtermined by [employer]. It has not been cleared or approved by the US Food and Drug Administration Performing Location LABORATORY [place] [address] [place] [address]
--- OUTSIDE RECORDS SUMMARY | 2024-06-21 20:00 | External Medical Summary ---
Author Name Unknown Address Unknown Organization K01:LABORATORY [facility] [place] - [address] [place] [address] Laboratory Report Ordering Provider Test Date Status GRACE HEARN 04/27/2024 07:33:00 Final Observation Date Value Abnormality Reference (Units ) Status Albumin 04/27/2024 07:33:00 2.8 Below low normal 3.8-5.0 (g/dL) Final AST (Aspartate aminotransferase) 04/27/2024 07:33:00 49 Above high normal 10-35 (U/L) Final Alk Phos 04/27/2024 07:33:00 160 Above high normal 35-130 (U/L) Final ALT (Alanine aminotransferase) 04/27/2024 07:33:00 34 10-35 (U/L) Final Bilirubin, Total 04/27/2024 07:33:00 0.5 <=1.2 (mg/dL) Final Bilirubin, Direct 04/27/2024 07:33:00 0.2 0.0-0.3 (mg/dL) Final Protein 04/27/2024 07:33:00 5.6 Below low normal 6.0-8.3 (g/dL) Final Performing Location LABORATORY [facility] [place] - [address] [place] [address]
--- OUTSIDE RECORDS SUMMARY | 2024-06-21 20:00 | External Medical Summary ---
Author Name Unknown Address Unknown Organization K01:LABORATORY [facility] [place] - [address] [place] [address] Ave[address] [facility] [address] Laboratory Report Ordering Provider Test Date Status GRACE HEARN 04/27/2024 07:33:00 Final Observation Date Value Abnormality Reference (Units ) Status WBC, Total 04/27/2024 07:33:00 18.90 Above high normal 4.00-10.80 (K/uL) Final RBC 04/27/2024 07:33:00 2.90 3.85-5.15 (M/uL) Final Hemoglobin 04/27/2024 07:33:00 8.8 Below low normal 12.0-15.3 (g/dL) Final HCT 04/27/2024 07:33:00 27.4 Below low normal 36.0-45.2 (%) Final MCV 04/27/2024 07:33:00 94.5 81.5-97.5 (fL) Final MCH 04/27/2024 07:33:00 30.3 27.0-34.0 (pg) Final MCHC 04/27/2024 07:33:00 32.1 32.0-36.0 (g/dL) Final RDW 04/27/2024 07:33:00 15.6 11.5-15.5 (%) Final Platelets 04/27/2024 07:33:00 770 Above high normal 140-400 (K/uL) Final MPV 04/27/2024 07:33:00 10.2 6.6-11.1 (fL) Final Nucleated erythrocytes/100 leukocytes [Ratio] in Blood by Automated count 04/27/2024 07:33:00 0 <=0 (/100 WBCs) Final Performing Location LABORATORY [facility] [place] - [address] [facility] [address]
--- OUTSIDE RECORDS SUMMARY | 2024-06-21 20:01 | External Medical Summary ---
Author Name Unknown Address Unknown Organization K01:LABORATORY [place] [address] [address] [facility] [place] [address] Laboratory Report Ordering Provider Test Date Status GRACE HEARN 04/26/2024 09:16:00 Final Observation Date Value Abnormality Reference (Units ) Status Calcium.ionized [Moles/volume] in Serum or Plasma by Ion-selective membrane electrode (ISE) 04/26/2024 09:16:00 1.18 1.13-1.32 (mmol/L) Final This test was developed and its performance characteristics dtermined by [employer]. It has not been cleared or approved by the US Food and Drug Administration Performing Location LABORATORY [place] [address] [place] [address]
--- OUTSIDE RECORDS SUMMARY | 2024-06-21 20:01 | External Medical Summary ---
Author Name Unknown Address Unknown Organization K01:LABORATORY [facility] [place] - [facility] [address] [facility] [address] Laboratory Report Ordering Provider Test Date Status GRACE HEARN 04/26/2024 09:16:00 Final Observation Date Value Abnormality Reference (Units ) Status WBC, Total 04/26/2024 09:16:00 20.20 Above high normal 4.00-10.80 (K/uL) Final RBC 04/26/2024 09:16:00 3.09 3.85-5.15 (M/uL) Final Hemoglobin 04/26/2024 09:16:00 9.4 Below low normal 12.0-15.3 (g/dL) Final HCT 04/26/2024 09:16:00 28.7 Below low normal 36.0-45.2 (%) Final MCV 04/26/2024 09:16:00 92.9 81.5-97.5 (fL) Final MCH 04/26/2024 09:16:00 30.4 27.0-34.0 (pg) Final MCHC 04/26/2024 09:16:00 32.8 32.0-36.0 (g/dL) Final RDW 04/26/2024 09:16:00 15.4 11.5-15.5 (%) Final Platelets 04/26/2024 09:16:00 752 Above high normal 140-400 (K/uL) Final MPV 04/26/2024 09:16:00 10.4 6.6-11.1 (fL) Final Nucleated erythrocytes/100 leukocytes [Ratio] in Blood by Automated count 04/26/2024 09:16:00 0 <=0 (/100 WBCs) Final Performing Location LABORATORY [facility] [place] - [address] [place] [address]
--- OUTSIDE RECORDS SUMMARY | 2024-06-21 20:01 | External Medical Summary ---
Author Name Unknown Address Unknown Organization K01:LABORATORY [facility] [place] - [address] [facility] [place] [address] Laboratory Report Ordering Provider Test Date Status GRACE HEARN 04/26/2024 09:16:00 Final Observation Date Value Abnormality Reference (Units ) Status Vancomycin, level 04/26/2024 09:16:00 7.4 Below low no rmal 10.0-40.0 (ug/mL) Final Performing Location LAB[facility]ATORY [facility] - [address] [place] [address]
--- OUTSIDE RECORDS SUMMARY | 2024-06-21 20:01 | External Medical Summary ---
Author Name Unknown Address Unknown Organization K01:LABORATORY [facility] [place] - [address] [place] [address] Laboratory Report Ordering Provider Test Date Status GRACE HEARN 04/26/2024 09:16:00 Final Observation Date Value Abnormality Reference (Units ) Status BUN 04/26/2024 09:16:00 10 6-20 (mg/dL) Final Creatinine 04/26/2024 09:16:00 0.5 0.5-1.0 (mg/dL) Final Glomerular filtration rate/1.73 sq M.predicted [Volume Rate/Area] in Serum, Plasma or Blood by Creatinine-based formula (CKD-EPI) 04/26/2024 09:16:00 >90 >=60 (mL/min) Final eGFR is calculated based on the CKD-EPI 2020 equation. Sodium 04/26/2024 09:16:00 139 135-146 (m mol/L) Final Potassium 04/26/2024 09:16:00 3.8 3.5-5.1 (m mol/L) Final Cl 04/26/2024 09:16:00 101 98-107 (mm ol/L) Final CO2 04/26/2024 09:16:00 28 22-32 (mmo l/L) Final Anion gap 04/26/2024 09:16:00 10 7-15 (mmol /L) Final Glucose 04/26/2024 09:16:00 96 70-120 (mg /dL) Final Calcium 04/26/2024 09:16:00 8.4 8.4-10.2 ( mg/dL) Final Performing Location LABORATORY [facility] [place] - [address] [place] [address]
--- OUTSIDE RECORDS SUMMARY | 2024-06-21 20:01 | External Medical Summary ---
Author Name Unknown Address Unknown Organization K01:LABORATORY [facility] [place] - [address] [facility] [place] [address] Laboratory Report Ordering Provider Test Date Status GRACE HEARN 04/26/2024 09:16:00 Final Observation Date Value Abnormality Reference (Units ) Status Phosphate 04/26/2024 09:16:00 2.1 Below low normal 2.5 -4.8 (mg/dL) Final Performing Location LABORATORY [facility] - [address] [place] [address]
--- OUTSIDE RECORDS SUMMARY | 2024-06-21 20:01 | External Medical Summary ---
Author Name Unknown Address Unknown Organization K01:LABORATORY [facility] [place] - [address] [place] [address] Laboratory Report Ordering Provider Test Date Status GRACE HEARN 04/26/2024 09:16:00 Final Observation Date Value Abnormality Reference (Units ) Status Albumin 04/26/2024 09:16:00 2.7 Below low normal 3.8-5.0 (g/dL) Final AST (Aspartate aminotransferase) 04/26/2024 09:16:00 58 Above high normal 10-35 (U/L) Final Alk Phos 04/26/2024 09:16:00 172 Above high normal 35-130 (U/L) Final ALT (Alanine aminotransferase) 04/26/2024 09:16:00 48 Above high normal 10-35 (U/L) Final Bilirubin, Total 04/26/2024 09:16:00 0.6 <=1.2 (mg/dL) Final Bilirubin, Direct 04/26/2024 09:16:00 0.2 0.0-0.3 (mg/dL) Final Protein 04/26/2024 09:16:00 5.6 Below low normal 6.0-8.3 (g/dL) Final Performing Location LABORATORY [facility] [place] - [address] [place] [address]
--- OUTSIDE RECORDS SUMMARY | 2024-06-21 20:01 | External Medical Summary ---
Author Name Unknown Address Unknown Organization K01:LABORATORY [place] [address] [facility] [place] [address] Laboratory Report Ordering Provider Test Date Status GRACE HEARN 04/25/2024 06:34:00 Final Observation Date Value Abnormality Reference (Units ) Status Calcium.ionized [Moles/volume] in Serum or Plasma by Ion-selective membrane electrode (ISE) 04/25/2024 06:34:00 1.14 1.13-1.32 (mmol/L) Final This test was developed and its performance characteristics dtermined by [employer]. It has not been cleared or approved by the [place] Food and Drug Administration Performing Location LABORATORY [place] [address] [place] [address]
--- OUTSIDE RECORDS SUMMARY | 2024-06-21 20:01 | External Medical Summary | Summary of Care ---
Author Name Unknown Organization [facility] Address [address] [place] [address] Phone [phone] Care Team Providers Care Fireworks Display Specialist Name Role Phone Unavailable Primary Care Provider Unavailabl e Reason for Visit * Reason Onset Date Comments Hospital Follow-Up 04/25/2024 6wk hd/fu w/ Rubina appt needed thanks Anh Encounter Details Date Type Department Care Team (Late st Contact Info) Description 04/25/2024 Telephone Infectious Disease, [place] [address], [place] [phone] Henrique Cespedes, [address], [place] [phone] Hospital Follow-Up (6wk hd/fu w/ Rubina a... Allergies No known active allergiesdocumented as of this encounter (statuses as of 04/25/2024) Medications Medication Sig Dispensed Refills Start Date End Date Status Multivitamin Adult Oral Tablet Take 1 Tablet by mouth in the morning. 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 (5 years old or older) No 04/22/2024 Do you have difficulty dress ing or [...] encounter Miscellaneous Notes * Telephone Encounter - Anh Beauliue, ALEC - 04/25/2024 12:03 PM EDT Order RETURN APPT [IP355] (Order [id number] Mckeon 04/20/2024 5:15 PM Admission Description: 54 year old female Department: AP4 IP [facility] Message Patient Name: YAKOV MCKEON([id number]) Sex: Female : 1970 PCP: [place]in[place] Center: [facility] Types of orders made on 04/25/2024: Consult, IP Post Discharge , Lab, Medications Order Date:04/25/2024 Ordering User:HENRIQUE CESPEDES [[id number]] Attending Provi arsh:Abiola Mo DO [[id number]] Authorizing Provider: Henrique Cespedes DO [[id number]] Department:AP4 IP [facility][[id number]] Order Specific Information Order: RETURN APPT [CUSTOM: IP355] Order #: [id number]: [id number] Priority: Routine Class: Nursing Unit Department (Single Entry) -> Infectious Disease Appt Needed Within: (Specify # of Days, Weeks, Months) -> 6 Wk Provider -> HENRIQUE RODRIGUEZ Tests Needed Prior to Appt -> Weekly OPAT labs & MRI Released on: 04/25/2024 11:57 AM Priority: Routine Class: Nursing Unit Department (Single Entry) -> Infectious Disease Appt Needed Within: (Specify # of Days, Weeks, Months) -> 6 Wk Provider -> HENRIQUE CESPEDES Tests Needed Prior to Appt -> Weekly OPAT labs & MRI documented in this encounter Plan of Treatment Health Maintenance Due Date Last Done Comments [...] Vaccines (1 of 2) 02/13/2018 COVID-19 Vaccine ( season) 2024 01/06/2021, 12/16/2020 Influenza Vaccine (FLU shot) (#1) 2024 Diabetes Screening 04/25/2027 04/25/2024, 0 04/24/2024, 04/23/2024, Additional history exists HIV Screening Completed 04/22/2024 Hepatitis C Screening Completed 04/22/2024 , 04/22/2024, 04/22/2024, Additional history exists HPV (Gardasil) Vaccine Aged Out No lo nger eligible based on patient's age to complete this topic MENINGOCOCCAL (MENACTRA/MENVEO) Aged Out No longer eligible based on patient's age to complete this topic Pneumococcal Vaccine: Pediatrics (0 to 5 Years) and At-Risk Patients (6 to 64 Years) Aged Out No longer eligible based on patient's age to complete this topic documented as of this encounter Medical Devices Not on filedocumented as of this encounter Advance Directives * No Code (Latest Code Status on File) Date Activated Date Inactivated Comments 04/22/2024 8:43 PM This order ref lects the patients wishes and were consensually agreed [...] the patient have Health Care Power of Surveillance Camera Technician? No * No Code Date Activated Date Inactivated Comments 04/20/2024 7:15 PM 04/22/2024 6:14 PM This order r eflects the patients wishes and were consensually agreed upon. Question Answer Comments Discussion of Advance Directives occurred with: Patient
--- OUTSIDE RECORDS SUMMARY | 2024-06-21 20:01 | External Medical Summary ---
Author Name Unknown Address Unknown Organization K01:LABORATORY [facility] [place] - [address] [facility] [place] [address] Laboratory Report Ordering Provider Test Date Status GRACE HEARN 04/26/2024 09:16:00 Final Observation Date Value Abnormality Reference (Units ) Status Magnesium 04/26/2024 09:16:00 2.4 1.5-2.6 (m g/dL) Final Performing Location LABORATORY [facility] - [address] [facility] [address]
--- OUTSIDE RECORDS SUMMARY | 2024-06-21 20:01 | External Medical Summary ---
Author Name Unknown Address Unknown Organization K01:LABORATORY [facility] [place] - [address] [facility] [place] [address] Laboratory Report Ordering Provider Test Date Status GRACE HEARN 04/25/2024 06:34:00 Final Observation Date Value Abnormality Reference (Units ) Status Magnesium 04/25/2024 06:34:00 2.2 1.5-2.6 (m g/dL) Final Performing Location LABORATORY [facility] - [address] [facility] [address]
--- OUTSIDE RECORDS SUMMARY | 2024-06-21 20:01 | External Medical Summary ---
Author Name Unknown Address Unknown Organization K01:LABORATORY [facility] [place] - [address] [place] [address] Laboratory Report Ordering Provider Test Date Status GRACE HEARN 04/25/2024 06:34:00 Final Observation Date Value Abnormality Reference (Units ) Status Albumin 04/25/2024 06:34:00 2.7 Below low normal 3.8-5.0 (g/dL) Final AST (Aspartate aminotransferase) 04/25/2024 06:34:00 64 Above high normal 10-35 (U/L) Final Alk Phos 04/25/2024 06:34:00 197 Above high normal 35-130 (U/L) Final ALT (Alanine aminotransferase) 04/25/2024 06:34:00 48 Above high normal 10-35 (U/L) Final Bilirubin, Total 04/25/2024 06:34:00 0.7 <=1.2 (mg/dL) Final Bilirubin, Direct 04/25/2024 06:34:00 0.3 0.0-0.3 (mg/dL) Final Protein 04/25/2024 06:34:00 5.3 Below low normal 6.0-8.3 (g/dL) Final Performing Location LABORATORY [facility] [place] - [address] [place] [address]
--- OUTSIDE RECORDS SUMMARY | 2024-06-21 20:01 | External Medical Summary ---
Author Name Unknown Address Unknown Organization K01:LABORATORY [facility] [place] - [address] [facility] [place] [address] Laboratory Report Ordering Provider Test Date Status GRACE HEARN 04/24/2024 12:37:00 Final Observation Date Value Abnormality Reference (Units ) Status Phosphate 04/24/2024 12:37:00 2.1 Below low normal 2.5 -4.8 (mg/dL) Final Performing Location LABORATORY [facility] - [address] [place] [address]
--- OUTSIDE RECORDS SUMMARY | 2024-06-21 20:01 | External Medical Summary ---
Author Name Unknown Address Unknown Organization K01:LABORATORY [facility] [place] [place] - [address] [facility] [address] Laboratory Report Ordering Provider Test Date Status GRACE HEARN 04/25/2024 12:46:43 Final Observation Date Value Abnormality Reference (Units ) Status Color of Urine by Auto 04/25/2024 12:46:43 Light Yellow Colorless, Light Yellow, Yellow, Dark Yellow Final Clarity, Urine 04/25/2024 12:46:43 Clear Clear Final Glucose [Mass/volume] in Urine by Automated test strip 04/25/2024 12:46:43 Negative Negative (mg/dL) Final Bilirubin.total [Presence] in Urine by Automated test strip 04/25/2024 12:46:43 Negative Negative Final Ketones [Mass/volume] in Urine by Automated test strip 04/25/2024 12:46:43 40 Abnormal Negative (mg/dL) Final Specific gravity, Urine 04/25/2024 12:46:43 1.016 1.003-1.030 Final Hemoglobin [Presence] in Urine by Automated test strip 04/25/2024 12:46:43 Negative Negative Final pH, Urine 04/25/2024 12:46:43 7.0 5.0-7.5 (Units) Final Protein [Mass/volume] in Urine by Automated test strip 04/25/2024 12:46:43 Trace Abnormal Negative (mg/dL) Final Urobilinogen [Mass/volume] in Urine by Automated test strip 04/25/2024 12:46:43 Normal Normal (mg/dL) Final Nitrite [Presence] in Urine by Automated test strip 04/25/2024 12:46:43 Negative Negative Final Leukocyte esterase [Presence] in Urine by Automated test strip 04/25/2024 12:46:43 Negative Negative Final RBC, Urine 04/25/2024 12:46:43 0-2 0-2 (/HPF) Final WBC, Urine 04/25/2024 12:46:43 3-5 Abnormal 0-2 (/HPF) Final Bacteria [#/area] in Urine sediment by Microscopy high power field 04/25/2024 12:46:43 0-25 0-25 (/HPF) Final CULTURE, URINE - ISINGER 04/25/2024 12:46:43 Final Culture not indicated by uri nalysis results\X09\ Performing Location LABORATORY [facility] [place] [place] - [facility] [address] [facility] [address]
--- OUTSIDE RECORDS SUMMARY | 2024-06-21 20:01 | External Medical Summary ---
Author Name Unknown Address Unknown Organization K01:LABORATORY [facility] [place] - [address] [place] [address] Laboratory Report Ordering Provider Test Date Status GRACE HEARN 04/25/2024 06:34:00 Final Observation Date Value Abnormality Reference (Units ) Status BUN 04/25/2024 06:34:00 11 6-20 (mg/dL) Final Creatinine 04/25/2024 06:34:00 0.5 0.5-1.0 (mg/dL) Final Glomerular filtration rate/1.73 sq M.predicted [Volume Rate/Area] in Serum, Plasma or Blood by Creatinine-based formula (CKD-EPI) 04/25/2024 06:34:00 >90 >=60 (mL/min) Final eGFR is calculated based on the CKD-EPI 2020 equation. Sodium 04/25/2024 06:34:00 135 135-146 (m mol/L) Final Potassium 04/25/2024 06:34:00 3.7 3.5-5.1 (m mol/L) Final Cl 04/25/2024 06:34:00 100 98-107 (mm ol/L) Final CO2 04/25/2024 06:34:00 25 22-32 (mmo l/L) Final Anion gap 04/25/2024 06:34:00 10 7-15 (mmol /L) Final Glucose 04/25/2024 06:34:00 101 70-120 (mg /dL) Final Calcium 04/25/2024 06:34:00 7.9 Below low normal 8.4 -10.2 (mg/dL) Final Performing Location LABORATORY [facility] [place] - [address] [place] [address]
--- OUTSIDE RECORDS SUMMARY | 2024-06-21 20:01 | External Medical Summary | Summary of Care ---
Author Name Unknown Organization [facility] Address [address] [place] [address] Phone [phone] Care Team Providers Care Curtain Cutter Name Role Phone Unavailable Primary Care Provider Unavailabl e Reason for Visit * Auth/Cert Specialty Diagnoses / Procedures Referred By Contac t Referred To Contact Diagnoses discitis, osteomyelitis Abiola Mo, [address] [facility] [place] [address] [place] [facility] [place] [address] [place] [address] Referral ID Status Reason Start Date Expiration Date Visits Re quested Visits Authorized [id number] [phone] Encounter Details Date Type Department Care Team (Latest Contact Info) Description 04/25/2024 2:09 PM EDT - 04/25/2024 11:59 PM EDT Hospital Encounter Cardiac Studies [facility] [place] [address] [place] [address] Discharge Disposition: Home - Self Care Allergies No known active allergiesdocumented as of this encounter (statuses as of 04/26/2024) Medications Medication Sig Dispensed Refills Start Date End Date Status Multivitamin Adult Oral Tablet Take 1 Tablet by mouth in the morning. 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 Constipation 04/20/2024 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 Acute osteomyelitis 04/20/2024 documented as of this encounter (statuses as of 04/26/2024) Social History Tobacco Use Types Packs/Day Years [...] Sign Reading Time Taken Comments Blood Pressure 136/82 04/25/2024 3:47 PM EDT Pulse 105 04/25/2024 3:47 PM EDT Temperature - - Respiratory Rate 22 04/25/2024 3:47 PM EDT Oxygen Saturation 94% 04/25/2024 3:47 PM EDT Inhaled Oxygen Concentration - - Weight - - Height - - Body Mass Index - - documented in this encounter Functional Status Functional [...] No 04/22/2024 documented as of this encounter Nursing Notes * Jaye Esparza RN - 04/25/2024 3:48 PM EDT NARINDER was completed without any difficulty. NARINDER probe # [id number] was used for the procedure. After [address] pt [address] Maya came in to assess pt and gave the ok for her to return to her room via ltter and with transport. Report was called to the bedside nurse and pt is being transportedback to her room at this time via litter and transport. VSS on 2L via NC. Jaye Esparza RN * Tu Morales RN - 04/25/2024 3:13 PM EDT Consent signed: 1400 Time out: 1442 [place] time: 1443 First sedation dose: 1445 Last sedation dose: 1450 Probe insertion time: 1448 Probe out time: 1508 End monitoring time: 1538 Total versed dose: 5 mg Total Fentanyl Dose: 100 mcg Probe number: [id number] Tu Morales RN * Jaye Esparza RN - 04/25/2024 2:24 PM EDT The patient arrived to the echo lab. The patient was identified, the procedure and risks were explained. documented in this encounter Miscellaneous Notes * Progress Notes - Non-Billable - Mukul Maya MD - 04/25/2024 2:10 PM EDT Patient examined post-sedation from NARINDER. Vials returned to baseline. No dysphagia or odynophagia. Safe to return to floor. documented in this encounter Plan of Treatment Upcoming Encounters Date Type Department Care Team (Late st Contact Info) Description 06/02/2024 11:20 AM EDT Office Visit Infectious Disease, [place] [address] [place] [address] Shiv Cespedes, [address] [place] [address] Health Maintenance Due Date Last Done Comments [...] of 2) 02/13/2018 COVID-19 Vaccine (3 - season) 2024 01/06/2021, 12/16/2020 Influenza Vaccine (FLU shot) (#1) 2024 Diabetes Screening 04/26/2027 04/26/2024, 0 04/25/2024, 04/24/2024, Additional history exists HIV Screening Completed 04/22/2024 [...] Not on filedocumented as of this encounter Procedures Procedure Name Priority Date/Time Associated Diagnosis Comments TRANSESOPHAGEAL ECHO (COMPLETE) STAT 04/25/2024 5:12 PM EDT Endocarditis documented in this encounter Visit Diagnoses Diagnosis Bacteremia due to Staphylococcus- Primary Bacteremia Epidural abscess Intracranial and intraspinal abscess of unspecified site documented in this encounter Administered Medications Inactive Administered Medications - up to 3 most recent administrations Medication Order MAR Action Action Date Dose Rate Site benzocaine (topical) (Hurricaine) 20 % spray Topical, ONCE, On e 04/25/24 at 1530, For 1 dose, To be used for INTUBATION ONLY, not for sore throat. Each unit dose contains 0.5 ml, Cardiac Studies_HODHOV Given 04/25/2024 2:43 PM EDT 1 Each fentaNYL (PF) inj ONCE PRN NARRATOR, Starting on Wed04/25/24 at 1445, Until Wed04/25/24 at 1450 Given 04/25/2024 2:50 PM EDT 25 mcg Given 04/25/2024 2:49 PM EDT 25 mcg Given 04/25/2024 2:45 PM EDT 50 mcg midazolam (Versed) 2 MG/2ML inj ONCE PRN NARRATOR, Starting on Wed04/25/24 at 1445, Until 04/25/24 at 1450 Given 04/25/2024 2:50 PM EDT 1 mg Given 04/25/2024 2:47 PM EDT 2 mg Given 04/25/2024 2:45 PM EDT 2 mg documented in this encounter Advance Directives * [...] the patient have Health Care Power of Safety Deposit Clerk? No * No Code Date Activated Date Inactivated Comments 04/20/2024 7:15 PM 04/22/2024 6:14 PM This order r eflects the patients wishes and were consensually agreed upon. Question Answer Comments Discussion of Advance Directives occurred with: Patient
--- OUTSIDE RECORDS SUMMARY | 2024-06-21 20:01 | External Medical Summary ---
Author Name Unknown Address Unknown Organization [id number]:LAB[facility]ATORY [facility] [place] [address] [facility] [place] [address] Laboratory Report Ordering Provider Test Date Status GRACE HEARN 04/24/2024 03:48:00 Final Observation Date Value Abnormality Reference (Units ) Status Phosphate 04/24/2024 03:48:00 1.4 Below low normal 2.5 -4.8 (mg/dL) Final Performing Location [facility] - [address] [place] [address]
--- OUTSIDE RECORDS SUMMARY | 2024-06-21 20:01 | External Medical Summary ---
Author Name Unknown Address Unknown Organization [id number]:LAB[facility]ATORY [facility] [place] - Formerly named [facility] [address] [facility] [address] [facility] [address] Laboratory Report Ordering Provider Test Date Status GRACE HEARN 04/25/2024 06:34:00 Final Observation Date Value Abnormality Reference (Units ) Status WBC, Total 04/25/2024 06:34:00 23.48 Above high normal 4.00-10.80 (K/uL) Final RBC 04/25/2024 06:34:00 2.83 3.85-5.15 (M/uL) Final Hemoglobin 04/25/2024 06:34:00 8.8 Below low normal 12.0-15.3 (g/dL) Final HCT 04/25/2024 06:34:00 25.6 Below low normal 36.0-45.2 (%) Final MCV 04/25/2024 06:34:00 90.5 81.5-97.5 (fL) Final MCH 04/25/2024 06:34:00 31.1 27.0-34.0 (pg) Final MCHC 04/25/2024 06:34:00 34.4 32.0-36.0 (g/dL) Final RDW 04/25/2024 06:34:00 15.4 11.5-15.5 (%) Final Platelets 04/25/2024 06:34:00 545 Above high normal 140-400 (K/uL) Final MPV 04/25/2024 06:34:00 9.8 6.6-11.1 (fL) Final Nucleated erythrocytes/100 leukocytes [Ratio] in Blood by Automated count 04/25/2024 06:34:00 0 <=0 (/100 WBCs) Final Performing Location LABORATORY [facility] [place] - [address] [place] [address]
--- OUTSIDE RECORDS SUMMARY | 2024-06-21 20:01 | External Medical Summary ---
Author Name Unknown Address Unknown Organization [id number]:[facility] [place] [address] [facility] [place] [address] Laboratory Report Ordering Provider Test Date Status GRACE HEARN 04/25/2024 06:34:00 Final Observation Date Value Abnormality Reference (Units ) Status Phosphate 04/25/2024 06:34:00 2.2 Below low normal 2.5 -4.8 (mg/dL) Final Performing Location [facility] - [address] [place] [address]
--- OUTSIDE RECORDS SUMMARY | 2024-06-21 20:02 | External Medical Summary ---
Author Name Unknown Address Unknown Organization [id number]:LABORATORY [facility] [place] - [address] [place] [address] Laboratory Report Ordering Provider Test Date Status TRUDY VALLEJO 04/22/2024 18:04:00 Final Observation Date Value Abnormality Reference (Units ) Status Bacteria identified in Specimen by Culture 04/22/2024 18:04:00 No fungus isolated Final Fungal Smear 04/22/2024 18:04:00 No yeast or hyphae seen. Final Test: Culture, Fungus, Non-D erm
Specimen Source: Spine, Thoracic
Specimen Type: Deep Wound
Specimen Date: 04/22/20241803
Result Date: 05/15/202452
Result Status: Final result
Resulting Lab: LABORATORY [facility] [place]
[address]
[place] [address]

CULTURE

No fungus isolated

STAIN

No yeast or hyphae seen.

null Performing Location LABORATORY [facility] [place] - [address] [facility] [address]
--- OUTSIDE RECORDS SUMMARY | 2024-06-21 20:02 | External Medical Summary | Summary of Care ---
Author Name Unknown Organization [facility] Address [address] [place] [address] Phone [phone] Care Team Providers Care Thermal Molder Name Role Phone Unavailable Primary Care Provider Unavailabl e Encounter Details Date Type Department Care Team (Latest Contact Info) Description 04/18/2024 1:10 PM EDT - 04/18/2024 1:14 PM EDT Hospital Encounter Radiology Film [place] [address] [place] [address] Arrived Discharge Disposition: Home - Self Care Allergies No known active allergiesdocumented as of this encounter (statuses as of 04/21/2024) Medications No known medicationsdocumented as of this encounter (statuses as of 04/21/2024) Active Problems Problem Noted Date Diagnosed Date Bacteremia due to Staphylococcus 04/20/2024 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 Constipation 04/20/2024 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 Acute osteomyelitis 04/20/2024 documented as of this encounter (statuses as of 04/21/2024) Social History Tobacco Use Types Packs/Day Years Used Date Smoking Tobacco: Never Assessed Utilities Answer Date Recorded Do you have [...] on file documented as of this encounter Plan of Treatment Health Maintenance Due Date Last Done Comments Lipid Panel 1968 Depression Screening 1980 HIV Screening 02/13/1983 Hepatitis C Screening 02/13/1986 DTap/Tdap Vaccines (1 - Tdap) 02/13/1987 Hepatitis B Vaccine (1 of 3 - 19+ 3-dose series) 02/13/1987 Pap Smear 02/13/1989 Cervical Cancer Screening 02/13/1998 HPV/Co-Test 02/13/1998 Mammogram 2008 Cologuard 02/13/2013 Colonoscopy 02/13/2013 Colorectal Cancer Screening 02/13/2013 Fecal Occult Blood Test 02/13/2013 Sigmoidoscopy 02/13/2013 Zoster Vaccines (1 of 2) 02/13/2018 COVID-19 Vaccine (3 - 2022-2 4 season) 2023 01/06/2021, 12/16/2020 Influenza Vaccine (FLU shot) (#1) 2024 Diabetes Screening 04/21/2027 04/21/2024, 04/20/2024 HPV (Gardasil) Vaccine Aged Out No lo [...] Procedure Name Priority Date/Time Associated Diagnosis Comments RADIOLOGY EXAM - CT (IMAGES ONLY, NO REPORT) Routine 04/18/2024 1:10 PM EDT documented in this encounter Results * RADIOLOGY EXAM - CT (IMAGES ONLY, NO REPORT) (04/18/2024 1:10 PM EDT) 04/18/2024 12:1 7 PM EDT Narrative Scheduling, Silent - 04/21/2024 12:29 AM EDT This is an imaging study not interpreted or resulted by a [facility] or [facility] contracted radiologist. Zach Doss DO RAD CT documented in this encounter Advance Directives * No Code (Latest Code Status on File) Date Activated Date Inactivated Comments 04/20/2024 7:15 PM This order ref lects the patients wishes and were consensually agreed upon. Question Answer Comments Discussion of Advance Directives occurred with: Patient
--- OUTSIDE RECORDS SUMMARY | 2024-06-21 20:02 | External Medical Summary ---
Author Name Unknown Address Unknown Organization [id number]:LABORATORY [facility] [place] - [address] [place] [address] Laboratory Report Ordering Provider Test Date Status LIZZY ALTAMIRANO 04/22/2024 19:38:16 Final Observation Date Value Abnormality Reference (Units ) Status Hep B surface Ag 04/22/2024 19:38:16 Negative Neg ative Final Performing Location [facility] - [address] [place] [address]
--- OUTSIDE RECORDS SUMMARY | 2024-06-21 20:02 | External Medical Summary ---
Author Name Unknown Address Unknown Organization K01:LABORATORY [address] [facility] [address] Laboratory Report Ordering Provider Test Date Status ALEXIS LUGO 04/23/2024 05:31:07 Final Observation Date Value Abnormality Reference (Units ) Status WBC, Total 04/23/2024 05:31:07 29.10 Above high normal 4.00-10.80 (K/uL) Final RBC 04/23/2024 05:31:07 2.91 3.85-5.15 (M/uL) Final Hemoglobin 04/23/2024 05:31:07 8.9 Below low normal 12.0-15.3 (g/dL) Final HCT 04/23/2024 05:31:07 26.5 Below low normal 36.0-45.2 (%) Final MCV 04/23/2024 05:31:07 91.1 81.5-97.5 (fL) Final MCH 04/23/2024 05:31:07 30.6 27.0-34.0 (pg) Final MCHC 04/23/2024 05:31:07 33.6 32.0-36.0 (g/dL) Final RDW 04/23/2024 05:31:07 15.1 11.5-15.5 (%) Final Platelets 04/23/2024 05:31:07 374 140-400 (K/uL) Final MPV 04/23/2024 05:31:07 10.0 6.6-11.1 (fL) Final Nucleated erythrocytes/100 leukocytes [Ratio] in Blood by Automated count 04/23/2024 05:31:07 0 <=0 (/100 WBCs) Final Performing Location LAB[facility]ORY [facility] [place] [address] [place] [address]
--- OUTSIDE RECORDS SUMMARY | 2024-06-21 20:02 | External Medical Summary ---
Author Name Unknown Address Unknown Organization [id number]:LABORATORY [facility] [place] - Formerly [facility] [address] [facility] [place] [address] Laboratory Report Ordering Provider Test Date Status LIZZY ALTAMIRANO 04/22/2024 19:38:16 Final Observation Date Value Abnormality Reference (Units ) Status Hepatitis B virus core Ab [Presence] in Serum 04/22/2024 19:38:16 Negative Negative Final Performing Location LABORATORY [facility] [place] - [address] [place] [address]
--- OUTSIDE RECORDS SUMMARY | 2024-06-21 20:02 | External Medical Summary ---
Author Name Unknown Address Unknown Organization K01:[place] [place] [address] [place] [address] Laboratory Report Ordering Provider Test Date Status LIZZY ALTAMIRANO 04/22/2024 19:38:16 Final Observation Date Value Abnormality Reference (Units ) Status Hep B Core IgM 04/22/2024 19:38:16 Negative Negat lita Final Performing Location [facility] - [address] [place] [address]
--- OUTSIDE RECORDS SUMMARY | 2024-06-21 20:02 | External Medical Summary ---
Author Name Unknown Address Unknown Organization K01:LABORATORY [facility] [place] [facility] - [address] [place] [address] Laboratory Report Ordering Provider Test Date Status SUE LIU 04/22/2024 14:45:00 Final Observation Date Value Abnormality Reference (Units ) Status ABO 04/22/2024 14:45:00 O Final RH 04/22/2024 14:45:00 Positive Final RED BLOOD CELL ANTIBODY SCREEN 04/22/2024 14:45:00 Negative Final SPECIMEN EXPIRATION DATE 04/22/2024 14:45:00 04/25/2024 23:59 Final Performing Location LABORATORY [facility] - [address] [place] [address]
--- OUTSIDE RECORDS SUMMARY | 2024-06-21 20:02 | External Medical Summary ---
Author Name Unknown Address Unknown Organization K01:LABORATORY [address] [facility] [address] Laboratory Report Ordering Provider Test Date Status ALEXIS LUGO 04/22/2024 19:38:16 Final Observation Date Value Abnormality Reference (Units ) Status WBC, Total 04/22/2024 19:38:16 31.86 Above high normal 4.00-10.80 (K/uL) Final RBC 04/22/2024 19:38:16 3.06 3.85-5.15 (M/uL) Final Hemoglobin 04/22/2024 19:38:16 9.1 Below low normal 12.0-15.3 (g/dL) Final HCT 04/22/2024 19:38:16 28.3 Below low normal 36.0-45.2 (%) Final MCV 04/22/2024 19:38:16 92.5 81.5-97.5 (fL) Final MCH 04/22/2024 19:38:16 29.7 27.0-34.0 (pg) Final MCHC 04/22/2024 19:38:16 32.2 32.0-36.0 (g/dL) Final RDW 04/22/2024 19:38:16 15.3 11.5-15.5 (%) Final Platelets 04/22/2024 19:38:16 334 140-400 (K/uL) Final MPV 04/22/2024 19:38:16 9.9 6.6-11.1 (fL) Final Nucleated erythrocytes/100 leukocytes [Ratio] in Blood by Automated count 04/22/2024 19:38:16 0 <=0 (/100 WBCs) Final Performing Location [facility] [place] [address] [facility] [address]
--- OUTSIDE RECORDS SUMMARY | 2024-06-21 20:02 | External Medical Summary ---
Author Name Unknown Address Unknown Organization K01:LABORATORY [place] [address] [address] [facility] [address] [facility] [address] Laboratory Report Ordering Provider Test Date Status LEXIECHERYL 04/22/2024 19:43:07 Final Observation Date Value Abnormality Reference (Units ) Status Calcium.ionized [Moles/volume] in Serum or Plasma by Ion-selective membrane electrode (ISE) 04/22/2024 19:43:07 1.19 1.13-1.32 (mmol/L) Final This test was developed and its performance characteristics dtermined by [employer]. It has not been cleared or approved by the [place] Food and Drug Administration Performing Location LABORATORY [place] [address] [facility] [address]
--- OUTSIDE RECORDS SUMMARY | 2024-06-21 20:02 | External Medical Summary ---
Author Name Unknown Address Unknown Organization K01:LABORATORY [address] [place] [id number] Laboratory Report Ordering Provider Test Date Status LIZZY ALTAMIRANO 04/22/2024 19:38:16 Final Observation Date Value Abnormality Reference (Units) Status Hepatitis B virus surface Ab [Units/volume] in Serum or Plasma by Immunoassay 04/22/2024 19:38:16 <3.5 (mIU/mL) Final Hepatitis B virus surface Ab [Presence] in Serum by Immunoassay 04/22/2024 19:38:16 Negative Final HEPATITIS B SURFACE ANTIBODY, INTERPRETATION 04/22/2024 19:38:16 NOT immune to Hepatitis B Virus Final POSITIVE: >=11.5 mIU/mL
INDETERMINATE: 8.5-<11.5 mIU/mL
NEGATIVE: <8.5 mIU/mL Performing Location LABORATORY [place] [address] [address] [facility] [address]
--- OUTSIDE RECORDS SUMMARY | 2024-06-21 20:02 | External Medical Summary ---
Author Name Unknown Address Unknown Organization : Laboratory Report Ordering Provider Test Date Status LIZZY ALTAMIRANO 04/22/2024 20:53:23 Final Observation Date Value Abnormality Reference (Units ) Status Performing Location
--- OUTSIDE RECORDS SUMMARY | 2024-06-21 20:02 | External Medical Summary ---
Author Name Unknown Address Unknown Organization K01:LAB[facility]ATORY [facility] [place] - [facility][note 3] [address] [place] [address] Laboratory Report Ordering Provider Test Date Status ALEXIS LUGO 04/23/2024 05:31:07 Final Observation Date Value Abnormality Reference (Units ) Status BUN 04/23/2024 05:31:07 16 6-20 (mg/dL) Final Creatinine 04/23/2024 05:31:07 0.5 0.5-1.0 (mg/dL) Final Glomerular filtration rate/1.73 sq M.predicted [Volume Rate/Area] in Serum, Plasma or Blood by Creatinine-based formula (CKD-EPI) 04/23/2024 05:31:07 >90 >=60 (mL/min) Final eGFR is calculated based on the CKD-EPI 2020 equation. Sodium 04/23/2024 05:31:07 142 135-146 (m mol/L) Final Potassium 04/23/2024 05:31:07 3.8 3.5-5.1 (m mol/L) Final Cl 04/23/2024 05:31:07 105 98-107 (mm ol/L) Final CO2 04/23/2024 05:31:07 24 22-32 (mmo l/L) Final Anion gap 04/23/2024 05:31:07 13 7-15 (mmol /L) Final Glucose 04/23/2024 05:31:07 122 Above high normal 70 -120 (mg/dL) Final Calcium 04/23/2024 05:31:07 8.1 Below low normal 8.4 -10.2 (mg/dL) Final Performing Location LABORATORY [facility] [place] - [address] [place] [address]
--- OUTSIDE RECORDS SUMMARY | 2024-06-21 20:02 | External Medical Summary ---
Author Name Unknown Address Unknown Organization K01:[place] [place] [address] [place] [address] Laboratory Report Ordering Provider Test Date Status ALEXIS LUGO 04/22/2024 19:38:16 Final Observation Date Value Abnormality Reference (Units ) Status Hep A IgM 04/22/2024 19:38:16 Negative Negative Final Hep B Core IgM 04/22/2024 19:38:16 Negative Negat lita Final Hep B surface Ag 04/22/2024 19:38:16 Negative Neg ative Final Hep C Ab 04/22/2024 19:38:16 Negative Negative Final Performing Location LABORATORY [facility] - [address] [place] [address]
--- OUTSIDE RECORDS SUMMARY | 2024-06-21 20:02 | External Medical Summary ---
Author Name Unknown Address Unknown Organization K01:[facility]ATORY [facility] [place] [address] [place] [address] Laboratory Report Ordering Provider Test Date Status GRACE HEARN 04/24/2024 03:48:00 Final Peak level is to be drawn 90 minutes after the dose has finished infusing. Check with nursing for infusion completion time. Observation Date Value Abnormality Reference (Units ) Status Vancomycin, peak 04/24/2024 03:48:00 25.3 Below low nor mal 30.0-40.0 (ug/mL) Final Performing Location LAB[facility] - [address] [place] [address]
--- OUTSIDE RECORDS SUMMARY | 2024-06-21 20:02 | External Medical Summary ---
Author Name Unknown Address Unknown Organization K01:[place] [place] [address] [place] [address] Laboratory Report Ordering Provider Test Date Status TRUDY VALLEJO 04/22/2024 17:51:00 Final Observation Date Value Abnormality Reference (Units ) Status Bacteria identified in Specimen by Culture 04/22/2024 17:51:00 No acid fast bacilli isolated Final Microscopic observation [Identifier] in Specimen by Rhodamine-auramine fluorochrome stain 04/22/2024 17:51:00 No acid fast bacilli seen Final Test: Culture, AFB
Spec imen Source: Spine, Cervical
Specimen Type: Deep Wound
Specimen Date: 04/22/20241750
Result Date: 06/20/2024956
Result Status: Final result
Resulting Lab: [facility] [place]
[address]
[place] [address]

CULTURE

No acid fast bacilli isolated

STAIN

No acid fast bacilli seen

null Performing Location [facility] [place] [address] [place] [address]
--- OUTSIDE RECORDS SUMMARY | 2024-06-21 20:02 | External Medical Summary ---
Author Name Unknown Address Unknown Organization K01:[facility] [place] [address] [place] [address] [address] [facility] [address] Laboratory Report Ordering Provider Test Date Status GRACE HEARN 04/24/2024 03:48:00 Final Observation Date Value Abnormality Reference (Units ) Status WBC, Total 04/24/2024 03:48:00 26.74 Above high normal 4.00-10.80 (K/uL) Final RBC 04/24/2024 03:48:00 2.73 3.85-5.15 (M/uL) Final Hemoglobin 04/24/2024 03:48:00 8.3 Below low normal 12.0-15.3 (g/dL) Final HCT 04/24/2024 03:48:00 24.6 Below low normal 36.0-45.2 (%) Final MCV 04/24/2024 03:48:00 90.1 81.5-97.5 (fL) Final MCH 04/24/2024 03:48:00 30.4 27.0-34.0 (pg) Final MCHC 04/24/2024 03:48:00 33.7 32.0-36.0 (g/dL) Final RDW 04/24/2024 03:48:00 14.9 11.5-15.5 (%) Final Platelets 04/24/2024 03:48:00 449 Above high normal 140-400 (K/uL) Final MPV 04/24/2024 03:48:00 9.9 6.6-11.1 (fL) Final Nucleated erythrocytes/100 leukocytes [Ratio] in Blood by Automated count 04/24/2024 03:48:00 0 <=0 (/100 WBCs) Final Performing Location [facility] [place] [address] [place] [address]
--- OUTSIDE RECORDS SUMMARY | 2024-06-21 20:02 | External Medical Summary ---
Author Name Unknown Address Unknown Organization K01:LABORATORY [facility] [place] - [address] [facility] [address] Laboratory Report Ordering Provider Test Date Status SUE LIU 04/22/2024 12:09:00 Final Anticoagulation may affect t esting. Refer to [facility] Test Catalog for a list of effects. Observation Date Value Abnormality Reference (Units ) Status aPTT panel - Platelet poor plasma 04/22/2024 12:09:00 31 21-38 (seconds) Final Performing Location LABORATORY [facility] [place] - [address] [place] [address]
--- OUTSIDE RECORDS SUMMARY | 2024-06-21 20:02 | External Medical Summary ---
Author Name Unknown Address Unknown Organization K01:LABORATORY [address] [place] [facility] [address] Laboratory Report Ordering Provider Test Date Status GRACE HEARN 04/24/2024 03:48:00 Final Observation Date Value Abnormality Reference (Units ) Status Calcium.ionized [Moles/volume] in Serum or Plasma by Ion-selective membrane electrode (ISE) 04/24/2024 03:48:00 1.11 Below low normal 1.13-1.32 (mmol/L) Final This test was developed and its performance characteristics dtermined by [employer]. It has not been cleared or approved by the US Food and Drug Administration Performing Location LAB[address]ATORY [address] [facility] [address]
--- OUTSIDE RECORDS SUMMARY | 2024-06-21 20:02 | External Medical Summary ---
Author Name Unknown Address Unknown Organization [id number]:LABORATORY [facility] [place] - [address] [place] [address] Laboratory Report Ordering Provider Test Date Status TRUDY VALLEJO 04/22/2024 18:04:00 Final Observation Date Value Abnormality Reference (Units ) Status Bacteria identified in Specimen by Culture 04/22/2024 18:04:00 No acid fast bacilli isolated Final Microscopic observation [Identifier] in Specimen by Rhodamine-auramine fluorochrome stain 04/22/2024 18:04:00 No acid fast bacilli seen Final Test: Culture, AFB
Spec imen Source: Spine, Thoracic
Specimen Type: Deep Wound
Specimen Date: 04/22/20241803
Result Date: 06/20/2024956
Result Status: Final result
Resulting Lab: LABORATORY [facility] [place]
[address]
[place] [address]

CULTURE

No acid fast bacilli isolated

STAIN

No acid fast bacilli seen

null Performing Location LABORATORY [facility] [place] - [address] [place] [address]
--- OUTSIDE RECORDS SUMMARY | 2024-06-21 20:02 | External Medical Summary ---
Author Name Unknown Address Unknown Organization [id number]:LABORATORY [facility] [place] - [address] [place] [address] Laboratory Report Ordering Provider Test Date Status LIZZY ALTAMIRANO 04/22/2024 20:53:23 Final Observation Date Value Abnormality Reference (Units ) Status Hep C Ab 04/22/2024 20:53:23 Negative Negative Final Further HCV quantitative artem ting not performed per protocol. Performing Location LABORATORY [facility] [place] - [address] [place] [address]
--- OUTSIDE RECORDS SUMMARY | 2024-06-21 20:02 | External Medical Summary ---
Author Name Unknown Address Unknown Organization K01:LABORATORY [facility] [place] [facility] [address] [place] [address] Laboratory Report Ordering Provider Test Date Status ALEXIS LUGO 04/22/2024 19:38:16 Final Observation Date Value Abnormality Reference (Units ) Status BUN 04/22/2024 19:38:16 14 6-20 (mg/dL) Final Creatinine 04/22/2024 19:38:16 0.5 0.5-1.0 (mg/dL) Final Glomerular filtration rate/1.73 sq M.predicted [Volume Rate/Area] in Serum, Plasma or Blood by Creatinine-based formula (CKD-EPI) 04/22/2024 19:38:16 >90 >=60 (mL/min) Final eGFR is calculated based on the CKD-EPI 2020 equation. Sodium 04/22/2024 19:38:16 139 135-146 (m mol/L) Final Potassium 04/22/2024 19:38:16 3.8 3.5-5.1 (m mol/L) Final Cl 04/22/2024 19:38:16 100 98-107 (mm ol/L) Final CO2 04/22/2024 19:38:16 21 Below low normal 22- 32 (mmol/L) Final Anion gap 04/22/2024 19:38:16 18 Above high normal 7- 15 (mmol/L) Final Glucose 04/22/2024 19:38:16 131 Above high normal 70 -120 (mg/dL) Final Calcium 04/22/2024 19:38:16 8.2 Below low normal 8.4 -10.2 (mg/dL) Final Performing Location LABORATORY [facility] [place] - [address] [place] [address]
--- OUTSIDE RECORDS SUMMARY | 2024-06-21 20:02 | External Medical Summary ---
Author Name Unknown Address Unknown Organization K01:LABORATORY [facility] [place] [facility] - [address] [place] [address] Laboratory Report Ordering Provider Test Date Status SUE LIU 04/22/2024 14:45:00 Final Observation Date Value Abnormality Reference (Units ) Status ABO 04/22/2024 14:45:00 O Final RH 04/22/2024 14:45:00 Positive Final Performing Location LABORATORY [facility] - [address] [place] [address]
--- OUTSIDE RECORDS SUMMARY | 2024-06-21 20:02 | External Medical Summary ---
Author Name Unknown Address Unknown Organization K01:LABORATORY [facility] [place] - [address] [facility] [address] Laboratory Report Ordering Provider Test Date Status GRACE HEARN 04/22/2024 12:09:00 Final Observation Date Value Abnormality Reference (Units ) Status BUN 04/22/2024 12:09:00 14 6-20 (mg/dL) Final Creatinine 04/22/2024 12:09:00 0.5 0.5-1.0 (mg/dL) Final Glomerular filtration rate/1.73 sq M.predicted [Volume Rate/Area] in Serum, Plasma or Blood by Creatinine-based formula (CKD-EPI) 04/22/2024 12:09:00 >90 >=60 (mL/min) Final eGFR is calculated based on the CKD-EPI 2020 equation. Sodium 04/22/2024 12:09:00 141 135-146 (m mol/L) Final Potassium 04/22/2024 12:09:00 3.5 3.5-5.1 (m mol/L) Final Cl 04/22/2024 12:09:00 101 98-107 (mm ol/L) Final CO2 04/22/2024 12:09:00 24 22-32 (mmo l/L) Final Anion gap 04/22/2024 12:09:00 16 Above high normal 7- 15 (mmol/L) Final Glucose 04/22/2024 12:09:00 96 70-120 (mg /dL) Final Albumin 04/22/2024 12:09:00 2.6 Below low normal 3.8 -5.0 (g/dL) Final AST (Aspartate aminotransferase) 04/22/2024 12:09:00 58 Above high normal 10-35 (U/L) Final Results may be falsely eleva pipe due to hemolysis. Alk Phos 04/22/2024 12:09:00 223 Above high normal 35 -130 (U/L) Final Bilirubin, Total 04/22/2024 12:09:00 1.1 <=1 .2 (mg/dL) Final Calcium 04/22/2024 12:09:00 8.4 8.4-10.2 ( mg/dL) Final Protein 04/22/2024 12:09:00 5.8 Below low normal 6.0 -8.3 (g/dL) Final ALT (Alanine aminotransferase) 04/22/2024 12:09:00 67 Above high normal 10-35 (U/L) Final Performing Location LABORATORY [facility] [place] - [address] [facility] [address]
--- OUTSIDE RECORDS SUMMARY | 2024-06-21 20:02 | External Medical Summary ---
Author Name Unknown Address Unknown Organization K01:[place]ORY [facility] [place] [facility] [address] [place] [address] Laboratory Report Ordering Provider Test Date Status GRACE HEARN 04/24/2024 03:48:00 Final Observation Date Value Abnormality Reference (Units ) Status BUN 04/24/2024 03:48:00 13 6-20 (mg/dL) Final Creatinine 04/24/2024 03:48:00 0.5 0.5-1.0 (mg/dL) Final Glomerular filtration rate/1.73 sq M.predicted [Volume Rate/Area] in Serum, Plasma or Blood by Creatinine-based formula (CKD-EPI) 04/24/2024 03:48:00 >90 >=60 (mL/min) Final eGFR is calculated based on the CKD-EPI 2020 equation. Sodium 04/24/2024 03:48:00 139 135-146 (m mol/L) Final Potassium 04/24/2024 03:48:00 4.3 3.5-5.1 (m mol/L) Final Cl 04/24/2024 03:48:00 105 98-107 (mm ol/L) Final CO2 04/24/2024 03:48:00 27 22-32 (mmo l/L) Final Anion gap 04/24/2024 03:48:00 7 7-15 (mmol /L) Final Glucose 04/24/2024 03:48:00 128 Above high normal 70 -120 (mg/dL) Final Calcium 04/24/2024 03:48:00 7.7 Below low normal 8.4 -10.2 (mg/dL) Final Performing Location LABORATORY [facility] [place] [address] [place] [address]
--- OUTSIDE RECORDS SUMMARY | 2024-06-21 20:02 | External Medical Summary ---
Author Name Unknown Address Unknown Organization K01:LABORATORY [facility] [place] - [address] [place] [address] Laboratory Report Ordering Provider Test Date Status GIAN,TO 04/23/2024 09:23:00 Final Observation Date Value Abnormality Reference (Units ) Status Bacteria identified in Specimen by Culture 04/23/2024 09:23:00 No growth Final Test: Culture, Blood
Sp ecimen Source: Blood, Venous
Specimen Type: Blood
Specimen Date: 04/23/2024922
Result Date: 04/28/2024 100
Result Status: Final result
Resulting Lab: LABORATORY [facility] [place]
[address]
[place] [address]

CULTURE

No growth

null Performing Location LABORATORY [facility] [place] - [address] [place] [address]
--- OUTSIDE RECORDS SUMMARY | 2024-06-21 20:02 | External Medical Summary ---
Author Name Unknown Address Unknown Organization K01:LABORATORY [facility] [place] - [facility] [place] [address] Laboratory Report Ordering Provider Test Date Status GRACE HEARN 04/22/2024 12:09:00 Final Warfarin Therapy
INR: 2 .0-3.0 conventional anticoagulation
INR: 2.5- 3.5 high intensity anticoagulation Observation Date Value Abnormality Reference (Units ) Status PT 04/22/2024 12:09:00 15.5 Above high normal 11 .6-15.2 (seconds) Final INR 04/22/2024 12:09:00 1.2 0.8-1.2 Final Performing Location LABORATORY [facility] [place] - [address] [place] [address]
--- OUTSIDE RECORDS SUMMARY | 2024-06-21 20:02 | External Medical Summary ---
Author Name Unknown Address Unknown Organization K01:[place] [facility] [facility] [place] [facility] [address] [place] [address] Laboratory Report Ordering Provider Test Date Status CHERYLE LUGOUL 04/23/2024 05:31:07 Final Observation Date Value Abnormality Reference (Units ) Status Albumin 04/23/2024 05:31:07 2.9 Below low normal 3.8-5.0 (g/dL) Final AST (Aspartate aminotransferase) 04/23/2024 05:31:07 38 Above high normal 10-35 (U/L) Final Alk Phos 04/23/2024 05:31:07 165 Above high normal 35-130 (U/L) Final ALT (Alanine aminotransferase) 04/23/2024 05:31:07 46 Above high normal 10-35 (U/L) Final Bilirubin, Total 04/23/2024 05:31:07 0.8 <=1.2 (mg/dL) Final Bilirubin, Direct 04/23/2024 05:31:07 0.4 Above high normal 0.0-0.3 (mg/dL) Final Protein 04/23/2024 05:31:07 5.3 Below low normal 6.0-8.3 (g/dL) Final Performing Location [place] [facility] [place] [address] [place] [address]
--- OUTSIDE RECORDS SUMMARY | 2024-06-21 20:02 | External Medical Summary | Summary of Care ---
Author Name Unknown Organization [facility] Address [address] [place] [address] Phone [phone] Care Team Providers Care Disc Recordist Name Role Phone Unavailable Primary Care Provider Unavailabl e Reason for Visit * Auth/Cert Specialty Diagnoses / Procedures Referred By Contac t Referred To Contact Diagnoses discitis, osteomyelitis Abiola Mo, [address] [facility] [address] Admissions [facility] [place] [address] [place] [address] Referral ID Status Reason Start Date Expiration Date Visits Re quested Visits Authorized [id number] Encounter Details Date Type Department Care Team (Latest Contact Info) Description 04/21/2024 7:30 AM EDT - 04/21/2024 11:59 PM EDT Hospital Encounter Cardiac Studies [place] [address] [place] [address] Discharge Disposition: Home - Self Care Allergies No known active allergiesdocumented as of this encounter (statuses as of 04/22/2024) Medications Medication Sig Dispensed Refills Start Date End Date Status Multivitamin Adult Oral Tablet Take 1 Tablet by mouth in the morning. 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 No 04/20/2024 Are you blind or do you have serious difficulty seeing, even when wearing glasses? No 04/20/2024 Do you have serious difficul ty walking or climbing stairs? (5 years old or older) No 04/20/2024 Do you have difficulty dress ing or bathing? (5 years old or older) No 04/20/2024 Because of a physical, menta l, or emotional condition, do you have difficulty doing errands alone such as visiting a doctor s office or shopping? (15 years old or older) No 04/20/20 Cognitive Status Response Date of Assessm ent Because of a physical, menta l, or emotional condition, do you have serious difficulty concentrating, remembering, or making decisions? (5 years old or older) No 04/20/2024 documented as of this encounter Plan of Treatment Scheduled Procedures Name Priority Associated Diagnoses Date/Ti me LAMINECTOMY DECOMPRESSION SPINAL CORD POSTERIOR LUMBAR Spinal abscess (HCC) 04/22/2024 2:00 PM EDT LAMINECTOMY DECOMPRESSION SPINAL CORD POSTERIOR THORACIC Spinal abscess (HCC) 04/22/2024 2:00 PM EDT LAMINECTOMY DECOMPRESSION SPINAL CORD POSTERIOR CERVICAL Spinal abscess (HCC) 04/22/2024 2:00 PM EDT Health Maintenance Due Date Last Done Comments [...] Vaccine (FLU shot) (#1) 2024 Diabetes Screening 04/22/2027 04/22/2024, 04/21/2024, 04/20/2024 HPV (Gardasil) Vaccine Aged Out [...] Procedure Name Priority Date/Time Associated Diagnosis Comments ECHO, COMPLETE (2D), TRANS-THORACIC Routine 04/21/2024 10:32 AM EDT Bacteremia of undetermined etiology documented in this encounter Visit Diagnoses Diagnosis Other cerebrovascular disease- Primary Other ill-defined cerebrovascular disease documented in this encounter Administered Medications Inactive Administered Medications - up to 3 most recent administrations Medication Order MAR Action Action Date Dose Rate Site perflutren lipid microsphere inj SUSP 1.956 mg 1.956 mg, Intravenous, ONCE PRN Other, For Echo Only - Suboptimal Echo Images, Starting on Wed04/21/24 at 0917, Until Wed04/21/24 at 1116, For 2 hours, Administer IVP over 45 seconds, Cardiac Studies_HODHOV Given 04/21/2024 9:17 AM EDT 1.956 mg documented in this encounter Advance Directives * No Code (Latest Code Status on File) Date Activated Date Inactivated Comments 04/20/2024 7:15 PM This order ref lects the patients wishes and were consensually agreed upon. Question Answer Comments Discussion of Advance Directives occurred with: Patient
--- OUTSIDE RECORDS SUMMARY | 2024-06-21 20:02 | External Medical Summary ---
Author Name Unknown Address Unknown Organization K01:LABORATORY [facility] [place] - [address] [facility] [place] [address] Laboratory Report Ordering Provider Test Date Status GRACE HEARN 04/24/2024 03:48:00 Final Observation Date Value Abnormality Reference (Units ) Status Magnesium 04/24/2024 03:48:00 2.2 1.5-2.6 (m g/dL) Final Performing Location LABORATORY [facility] - [address] [facility] [address]
--- OUTSIDE RECORDS SUMMARY | 2024-06-21 20:02 | External Medical Summary ---
Author Name Unknown Address Unknown Organization K01:LABORATORY C - [address] [place] [facility] [address] Laboratory Report Ordering Provider Test Date Status ALEXIS LUGO 04/23/2024 05:31:07 Final Observation Date Value Abnormality Reference (Units ) Status Magnesium 04/23/2024 05:31:07 2.5 1.5-2.6 (m g/dL) Final Performing Location LABORATORY [facility] - [address] [place] [address]
--- OUTSIDE RECORDS SUMMARY | 2024-06-21 20:02 | External Medical Summary ---
Author Name Unknown Address Unknown Organization K01:LABORATORY [facility] [place] - [address] [place] [address] Laboratory Report Ordering Provider Test Date Status GIAN,TO 04/23/2024 09:21:00 Final Observation Date Value Abnormality Reference (Units ) Status Bacteria identified in Specimen by Culture 04/23/2024 09:21:00 No growth Final Test: Culture, Blood (Site 2)
Specimen Source: Blood, Venous
Specimen Type: Blood
Specimen Date: 04/23/2024920
Result Date: 04/28/2024 100
Result Status: Final result
Resulting Lab: LABORATORY [facility] [place]
[address]
[place] [address]

CULTURE

No growth

null Performing Location LABORATORY [facility] [place] - [address] [place] [address]
--- OUTSIDE RECORDS SUMMARY | 2024-06-21 20:02 | External Medical Summary ---
Author Name Unknown Address Unknown Organization K01:LAB[place]ATORY [facility] [place] [address] [place] [address] Laboratory Report Ordering Provider Test Date Status ITZEL FOX 04/23/2024 05:31:07 Final Observation Date Value Abnormality Reference (Units ) Status Vancomycin, level 04/23/2024 05:31:07 10.7 10 .0-40.0 (ug/mL) Final Performing Location LABORATORY C - [address] [place] [address]
--- OUTSIDE RECORDS SUMMARY | 2024-06-21 20:02 | External Medical Summary ---
Author Name Unknown Address Unknown Organization K01:LABORATORY [address] [facility] [address] Laboratory Report Ordering Provider Test Date Status LIZZY ALTAMIRANO 04/22/2024 19:38:16 Final Observation Date Value Abnormality Reference (Units ) Status HIV 1+2 Ab+HIV1 p24 Ag [Presence] in Serum or Plasma by Immunoassay 04/22/2024 19:38:16 Negative Negative Final Negative HIV-1/2 antigen and antibody screening tset results usually indicate the absence of HIV-1 and HIV-2 infection. However, such negative results do not rule-out acute HIV infection. If acute HIV-1 infection is highly suspected, it is recommended that a specimen be submitted for detection of HIV-1 RNA. Performing Location LABORATORY [facility] [place] - [address] [facility] [address]
--- OUTSIDE RECORDS SUMMARY | 2024-06-21 20:02 | External Medical Summary ---
Author Name Unknown Address Unknown Organization K01:LABORATORY [address] [place] [facility] [address] Laboratory Report Ordering Provider Test Date Status CHERYL OWEN 04/23/2024 05:31:07 Final Observation Date Value Abnormality Reference (Units ) Status Calcium.ionized [Moles/volume] in Serum or Plasma by Ion-selective membrane electrode (ISE) 04/23/2024 05:31:07 1.12 Below low normal 1.13-1.32 (mmol/L) Final This test was developed and its performance characteristics dtermined by [employer]. It has not been cleared or approved by the [place] Food and Drug Administration Performing Location LABORATORY [place] [address] [facility] [address]
--- OUTSIDE RECORDS SUMMARY | 2024-06-21 20:02 | External Medical Summary ---
Author Name Unknown Address Unknown Organization K01:[place] [facility] [place] [address] [place] [address] Laboratory Report Ordering Provider Test Date Status TRUDY VALLEJO 04/22/2024 17:51:00 Final Observation Date Value Abnormality Reference (Units) Status Bacteria identified in Specimen by Culture 04/22/2024 17:51:00 No aerobic or anaerobic growth Final Gram Stain 04/22/2024 17:51:00 No polymorphonuclear leukocytes seen Final Gram Stain 04/22/2024 17:51:00 No squamous epithelial cells seen Final Gram Stain 04/22/2024 17:51:00 No organisms seen Final Test: Culture, Wound, Deep, Aerobic and Anaerobic
Specimen Source: Spine, Cervical
Specimen Type: Deep Wound
Specimen Date: 04/22/20241750
Result Date: 04/27/2024919
Result Status: Final result
Resulting Lab: [place] [facility] [place]
[address]
[place] [address]

CULTURE

No aerobic or anaerobic growth

STAIN

No polymorphonuclear leukocytes seen

No squamous epithelial cells seen

No organisms seen

null Performing Location [place] [facility] [place] [address] [place] [address]
--- OUTSIDE RECORDS SUMMARY | 2024-06-21 20:02 | External Medical Summary ---
Author Name Unknown Address Unknown Organization K01:LABORATORY [facility] [place] - [address] [place] [address] Laboratory Report Ordering Provider Test Date Status GRACE HEARN 04/24/2024 03:48:00 Final Observation Date Value Abnormality Reference (Units ) Status Albumin 04/24/2024 03:48:00 2.5 Below low normal 3.8-5.0 (g/dL) Final AST (Aspartate aminotransferase) 04/24/2024 03:48:00 35 10-35 (U/L) Final Alk Phos 04/24/2024 03:48:00 140 Above high normal 35-130 (U/L) Final ALT (Alanine aminotransferase) 04/24/2024 03:48:00 38 Above high normal 10-35 (U/L) Final Bilirubin, Total 04/24/2024 03:48:00 0.7 <=1.2 (mg/dL) Final Bilirubin, Direct 04/24/2024 03:48:00 0.3 0.0-0.3 (mg/dL) Final Protein 04/24/2024 03:48:00 4.8 Below low normal 6.0-8.3 (g/dL) Final Performing Location LABORATORY [facility] [place] - [address] [place] [address]
--- OUTSIDE RECORDS SUMMARY | 2024-06-21 20:02 | External Medical Summary ---
Author Name Unknown Address Unknown Organization K01:LABORATORY [facility] [place] - [address] [place] [address] Laboratory Report Ordering Provider Test Date Status TRUDY VALLEJO 04/22/2024 18:04:00 Final Observation Date Value Abnormality Reference (Units) Status Bacteria identified in Specimen by Culture 04/22/2024 18:04:00 No aerobic or anaerobic growth Final Gram Stain 04/22/2024 18:04:00 No polymorphonuclear leukocytes seen Final Gram Stain 04/22/2024 18:04:00 No squamous epithelial cells seen Final Gram Stain 04/22/2024 18:04:00 No organisms seen Final Test: Culture, Wound, Deep, Aerobic and Anaerobic
Specimen Source: Spine, Thoracic
Specimen Type: Deep Wound
Specimen Date: 04/22/20241803
Result Date: 04/27/2024920
Result Status: Final result
Resulting Lab: LABORATORY [facility] [place]
[address]
[place] [address]

CULTURE

No aerobic or anaerobic growth

STAIN

No polymorphonuclear leukocytes seen

No squamous epithelial cells seen

No organisms seen

null Performing Location LABORATORY [facility] [place] - [address] [place] [address]
--- OUTSIDE RECORDS SUMMARY | 2024-06-21 20:03 | External Medical Summary | Summary of Care ---
Author Name Unknown Organization [facility] Address [address] [place] [address] Phone [phone] Care Team Providers Care Supervisor Laboratory Animal Facility Name Role Phone Unavailable Primary Care Provider Unavailabl e Encounter Details Date Type Department Care Team (Latest Contact Info) Description 04/15/2024 11:20 AM EDT - 04/15/2024 11:24 AM EDT Hospital Encounter Radiology Film File [address] [place] [address] Discharge Disposition: Home - Self [...] - CT (IMAGES ONLY, NO REPORT) Routine 04/15/2024 11:20 AM EDT documented in this encounter Results * RADIOLOGY EXAM - CT (IMAGES ONLY, NO REPORT) (04/15/2024 11:20 AM EDT) 04/15/2024 11:1 6 AM EDT Narrative Scheduling, Silent - 04/20/2024 4:09 PM EDT This is an imaging study not interpreted or resulted by a [facility] or [facility] contracted radiologist. Abiola Mo DO RAD CT documented in this encounter Advance Directives * No Code (Latest Code Status on File) Date Activated Date Inactivated Comments 04/20/2024 7:15 PM This order ref lects the patients wishes and were consensually agreed upon. Question Answer Comments Discussion of Advance Directives occurred with: Patient
--- OUTSIDE RECORDS SUMMARY | 2024-06-21 20:03 | External Medical Summary | Summary of Care ---
Author Name Unknown Organization [facility] Address [address] [place] [address] Phone [phone] Care Team Providers Care Permit Technician Name Role Phone Unavailable Primary Care Provider Unavailabl e Encounter Details Date Type Department Care Team (Latest Contact Info) Description 04/18/2024 12:30 PM EDT - 04/18/2024 12:34 PM EDT Hospital Encounter Radiology Film File [address] [place] [address] Arrived Discharge Disposition: Home - [...] CT (IMAGES ONLY, NO REPORT) Routine 04/18/2024 12:30 PM EDT documented in this encounter Results * RADIOLOGY EXAM - CT (IMAGES ONLY, NO REPORT) (04/18/2024 12:30 PM EDT) 04/18/2024 12:1 7 PM EDT Narrative Scheduling, Silent - 04/20/2024 3:44 PM EDT This is an imaging study not interpreted or resulted by a [facility] or [facility] contracted radiologist. Abiola Mo DO RAD CT documented in this encounter Advance Directives * No Code (Latest Code Status on File) Date Activated Date Inactivated Comments 04/20/2024 7:15 PM This order ref lects the patients wishes and were consensually agreed upon. Question Answer Comments Discussion of Advance Directives occurred with: Patient
--- OUTSIDE RECORDS SUMMARY | 2024-06-21 20:03 | External Medical Summary | Summary of Care ---
Author Name Unknown Organization [facility] Address [address] [place] [address] Phone [phone] Care Team Providers Care Police Investigator Name Role Phone Unavailable Primary Care Provider Unavailabl e Encounter Details Date Type Department Care Team (Latest Contact Info) Description 04/18/2024 1:05 PM EDT - 04/18/2024 1:09 PM EDT Hospital Encounter Radiology Film File [address] [place] [address] Arrived Discharge Disposition: Home - [...] CT (IMAGES ONLY, NO REPORT) Routine 04/18/2024 1:05 PM EDT documented in this encounter Results * RADIOLOGY EXAM - CT (IMAGES ONLY, NO REPORT) (04/18/2024 1:05 PM EDT) 04/18/2024 12:1 7 PM EDT Narrative Scheduling, Silent - 04/21/2024 12:28 AM EDT This is an imaging study not interpreted or resulted by a [facility] or [facility] contracted radiologist. Zach Doss DO RAD CT documented in this encounter Advance Directives * No Code (Latest Code Status on File) Date Activated Date Inactivated Comments 04/20/2024 7:15 PM This order ref lects the patients wishes and were consensually agreed upon. Question Answer Comments Discussion of Advance Directives occurred with: Patient
--- OUTSIDE RECORDS SUMMARY | 2024-06-21 20:03 | External Medical Summary | Summary of Care ---
Author Name Unknown Organization [facility] Address [address] [place] [address] Phone [phone] Care Team Providers Care Spring Fitter Helper Name Role Phone Unavailable Primary Care Provider Unavailabl e Encounter Details Date Type Department Care Team (Latest Contact Info) Description 04/18/2024 1:25 PM EDT - 04/18/2024 1:29 PM EDT Hospital Encounter Radiology Film File [address] [place] [address] Arrived Discharge Disposition: Home - [...] CT (IMAGES ONLY, NO REPORT) Routine 04/18/2024 1:25 PM EDT documented in this encounter Results * RADIOLOGY EXAM - CT (IMAGES ONLY, NO REPORT) (04/18/2024 1:25 PM EDT) 04/18/2024 12:1 7 PM EDT Narrative Scheduling, Silent - 04/21/2024 12:38 AM EDT This is an imaging study not interpreted or resulted by a [facility] or [facility] contracted radiologist. Zach Doss DO RAD CT documented in this encounter Advance Directives * No Code (Latest Code Status on File) Date Activated Date Inactivated Comments 04/20/2024 7:15 PM This order ref lects the patients wishes and were consensually agreed upon. Question Answer Comments Discussion of Advance Directives occurred with: Patient
--- OUTSIDE RECORDS SUMMARY | 2024-06-21 20:03 | External Medical Summary | Summary of Care ---
Author Name Unknown Organization [facility] Address [address] [place] [address] Phone [phone] Care Team Providers Care Hoop Maker Machine Name Role Phone Unavailable Primary Care Provider Unavailabl e Encounter Details Date Type Department Care Team (Latest Contact Info) Description 04/18/2024 1:35 PM EDT - 04/18/2024 9:49 PM EDT Hospital Encounter Radiology Film File [address] [place] [address] Arrived Discharge Disposition: Home - [...] Date/Time Associated Diagnosis Comments RADIOLOGY EXAM - GENERAL RAD (IMAGES ONLY,NO REPORT) Routine 04/18/2024 1:35 PM EDT documented in this encounter Results * RADIOLOGY EXAM - GENERAL RAD (IMAGES ONLY,NO REPORT) (04/18/2024 1:35 PM EDT) 04/18/2024 12:4 0 PM EDT Narrative Scheduling, Silent - 04/21/2024 12:42 AM EDT This is an imaging study not interpreted or resulted by a [facility]. Zach Doss DO RADIOLOGY (RAD GENER AL) documented in this encounter Advance Directives * No Code (Latest Code Status on File) Date Activated Date Inactivated Comments 04/20/2024 7:15 PM This order ref lects the patients wishes and were consensually agreed upon. Question Answer Comments Discussion of Advance Directives occurred with: Patient
--- OUTSIDE RECORDS SUMMARY | 2024-06-21 20:03 | External Medical Summary | Summary of Care ---
Author Name Unknown Organization [facility] Address [address] [place] [address] Phone [phone] Care Team Providers Care Acid Leveler Name Role Phone Unavailable Primary Care Provider Unavailabl e Encounter Details Date Type Department Care Team (Latest Contact Info) Description 04/18/2024 12:25 PM EDT - 04/18/2024 12:29 PM EDT Hospital Encounter Radiology Film File [address] [place] [address] Arrived Discharge Disposition: Home - [...] CT (IMAGES ONLY, NO REPORT) Routine 04/18/2024 12:25 PM EDT documented in this encounter Results * RADIOLOGY EXAM - CT (IMAGES ONLY, NO REPORT) (04/18/2024 12:25 PM EDT) 04/18/2024 12:1 7 PM EDT Narrative Scheduling, Silent - 04/20/2024 3:41 PM EDT This is an imaging study not interpreted or resulted by a [facility] or [facility] contracted radiologist. Abiola Mo DO RAD CT documented in this encounter Advance Directives * No Code (Latest Code Status on File) Date Activated Date Inactivated Comments 04/20/2024 7:15 PM This order ref lects the patients wishes and were consensually agreed upon. Question Answer Comments Discussion of Advance Directives occurred with: Patient
--- OUTSIDE RECORDS SUMMARY | 2024-06-21 20:03 | External Medical Summary ---
Author Name Unknown Address Unknown Organization [id number][place] [place] [address] [facility] [address] Laboratory Report Ordering Provider Test Date Status MARLON ZAYAS 04/21/2024 07:49:00 Final Observation Date Value Abnormality Reference (Units) Status Staphylococcus aureus DNA [Presence] by ANGELA with probe detection in Positive blood culture 04/21/2024 07:49:00 Positive Very abnormal Negative Final Methicillin resistance mecA+mecC genes+SCCmec+OrfX junction [Presence] by Molecular method 04/21/2024 07:49:00 Negative Negative Final Blood pathogens panel by ANGELA with non-probe detection in Positive blood culture 04/21/2024 07:49:00 Negative for all other bacterial targets and resistance genes. Final This assay detects: Enteroco ccus faecalis,Enterococcus faecium, Listeria monocytogenes,Staphylococcus,Staphylococcus aureus,Staphylococcus epidermidis,Staphylococcus lugdunensis, [...] IMP resistance gene and CTX-M resistance gene. Performing Location [facility] [place] [address] [facility] [address]
--- OUTSIDE RECORDS SUMMARY | 2024-06-21 20:03 | External Medical Summary | Summary of Care ---
Author Name Unknown Organization [facility] Address [address] [place] [address] Phone [phone] Care Team Providers Care Upholsterer Limousine And Hearse Name Role Phone Unavailable Primary Care Provider Unavailabl e Encounter Details Date Type Department Care Team (Latest Contact Info) Description 04/18/2024 1:30 PM EDT - 04/18/2024 1:34 PM EDT Hospital Encounter Radiology Film File [address] [place] [address] Arrived Discharge Disposition: Home - [...] CT (IMAGES ONLY, NO REPORT) Routine 04/18/2024 1:30 PM EDT documented in this encounter Results * RADIOLOGY EXAM - CT (IMAGES ONLY, NO REPORT) (04/18/2024 1:30 PM EDT) 04/18/2024 12:1 7 PM EDT Narrative Scheduling, Silent - 04/21/2024 12:40 AM EDT This is an imaging study not interpreted or resulted by a [facility] or [facility] contracted radiologist. Zach Doss DO RAD CT documented in this encounter Advance Directives * No Code (Latest Code Status on File) Date Activated Date Inactivated Comments 04/20/2024 7:15 PM This order ref lects the patients wishes and were consensually agreed upon. Question Answer Comments Discussion of Advance Directives occurred with: Patient
--- OUTSIDE RECORDS SUMMARY | 2024-06-21 20:03 | External Medical Summary ---
Author Name Unknown Address Unknown Organization K01:[facility] [place] [address] [facility] [address] Laboratory Report Ordering Provider Test Date Status MARLON ZAYAS 04/21/2024 07:49:00 Final Anaerobic bottle no growth t o date. Observation Date Value Abnormality Reference (Units ) Status Bacteria identified in Specimen by Culture 04/21/2024 07:49:00 [id number]^STAPH YLOCOCCUS AUREUS Very abnormal Final Aerobic bottle Staphylococcu s aureus Gram Stain 04/21/2024 07:49:00 Aerobic pk le Gram positive cocci in clusters Very abnormal Final This is an appended report. These results have been appended to a previously preliminary verified report. Performing Location [facility] [place] [address] [facility] [address] Ordering Provider Test Date Status MARLON ZAYAS 04/21/2024 07:49:00 Final Observation Date Value Abnormality Reference (Units ) Status Clindamycin 04/21/2024 07:49:00 <=0.25 Susceptible Final Erythromycin susceptibility 04/21/2024 07:49:00 <=0.25 Susceptible Final Oxacillinsusceptibility 04/21/2024 07:49:00 <=0.25 Susceptible Final Tetracyclinesusceptibility 04/21/2024 07:49:00 <=1 Susceptible Final TMP-SMZ susceptibility 04/21/2024 07:49:00 <=10 Susceptible Final Vancomycinsusceptibility 04/21/2024 07:49:00 <=0.5 Susceptible Final Test: Culture, Blood
Rebeca shelley Source: Blood, Venous
Specimen Type: Blood
Specimen Date: 04/21/2024 0749
Result Date: 04/24/2024 0751
Result Status: Final result
Abnormal: Yes
Resulting Lab: [facility]
[address]
[place] [address]

CULTURE

Aerobic bottle Staphylococcus aureus (Panic)

Anaerobic bottle no growth to date.

STAIN

Aerobic bottle Gram positive cocci in clusters

This is an appended report. These results have been appended to a
previously preliminary verified report.

SUSCEPTIBILITY

Staphylococcus
aureus
METHOD MICROBROTH
DILUTIONS

CLINDAMYCIN <=0.25 Susceptible
ERYTHROMYCIN <=0.25 Susceptible
OXACILLIN <=0.25 Susceptible
TETRACYCLINE <=1 Susceptible
TRIMETH/SULFAMETHOXAZOLE <=10 Susceptible
VANCOMYCIN <=0.5 Susceptible

null Performing Location [facility] [place] [address] [place] [address]
--- OUTSIDE RECORDS SUMMARY | 2024-06-21 20:03 | External Medical Summary | Summary of Care ---
Author Name Unknown Organization [facility] Address [address] [place] [address] Phone [phone] Care Team Providers Care Authorization Coordinator Name Role Phone Unavailable Primary Care Provider Unavailabl e Encounter Details Date Type Department Care Team (Latest Contact Info) Description 04/18/2024 9:55 PM EDT - 04/18/2024 11:59 PM EDT Hospital Encounter Radiology Film File [address] [place] [address] Arrived Discharge Disposition: Home - [...] GENERAL RAD (IMAGES ONLY,NO REPORT) Routine 04/18/2024 9:55 PM EDT documented in this encounter Results * RADIOLOGY EXAM - GENERAL RAD (IMAGES ONLY,NO REPORT) (04/18/2024 9:55 PM EDT) 04/18/2024 9:47 PM EDT Narrative Scheduling, Silent - 04/21/2024 12:45 AM EDT This is an imaging study not interpreted or resulted by a [facility] or [facility] contracted radiologist. Zach Doss DO RADIOLOGY (RAD GENER AL) documented in this encounter Advance Directives * No Code (Latest Code Status on File) Date Activated Date Inactivated Comments 04/20/2024 7:15 PM This order ref lects the patients wishes and were consensually agreed upon. Question Answer Comments Discussion of Advance Directives occurred with: Patient
--- OUTSIDE RECORDS SUMMARY | 2024-06-21 20:03 | External Medical Summary | Summary of Care ---
Author Name Unknown Organization [facility] Address [address] [place] [address] Phone [phone] Care Team Providers Care Rug Sizer Name Role Phone Unavailable Primary Care Provider Unavailabl e Encounter Details Date Type Department Care Team (Latest Contact Info) Description 04/15/2024 11:25 AM EDT - 04/15/2024 11:59 PM EDT Hospital Encounter Radiology Film File [address] [place] [address] Arrived Discharge Disposition: Home - [...] CT (IMAGES ONLY, NO REPORT) Routine 04/15/2024 11:25 AM EDT documented in this encounter Results * RADIOLOGY EXAM - CT (IMAGES ONLY, NO REPORT) (04/15/2024 11:25 AM EDT) 04/15/2024 11:1 6 AM EDT Narrative Scheduling, Silent - 04/21/2024 12:34 AM EDT This is an imaging study not interpreted or resulted by a [facility] or [facility] contracted radiologist. Zach Doss DO RAD CT documented in this encounter Advance Directives * No Code (Latest Code Status on File) Date Activated Date Inactivated Comments 04/20/2024 7:15 PM This order ref lects the patients wishes and were consensually agreed upon. Question Answer Comments Discussion of Advance Directives occurred with: Patient
--- OUTSIDE RECORDS SUMMARY | 2024-06-21 20:03 | External Medical Summary | Summary of Care ---
Author Name Unknown Organization [facility] Address [address] [place] [address] Phone [phone] Care Team Providers Care Corn Shucker Name Role Phone Unavailable Primary Care Provider Unavailabl e Encounter Details Date Type Department Care Team (Latest Contact Info) Description 04/18/2024 9:50 PM EDT - 04/18/2024 9:54 PM EDT Hospital Encounter Radiology Film File [address] [place] [address] Arrived Discharge Disposition: Home - [...] GENERAL RAD (IMAGES ONLY,NO REPORT) Routine 04/18/2024 9:50 PM EDT documented in this encounter Results * RADIOLOGY EXAM - GENERAL RAD (IMAGES ONLY,NO REPORT) (04/18/2024 9:50 PM EDT) 04/18/2024 9:47 PM EDT Narrative Scheduling, Silent - 04/20/2024 8:27 PM EDT This is an imaging study not interpreted or resulted by a [facility] or [facility] contracted radiologist. Abiola Mo DO RADIOLOGY (RAD G ENERAL) documented in this encounter Advance Directives * No Code (Latest Code Status on File) Date Activated Date Inactivated Comments 04/20/2024 7:15 PM This order ref lects the patients wishes and were consensually agreed upon. Question Answer Comments Discussion of Advance Directives occurred with: Patient
--- OUTSIDE RECORDS SUMMARY | 2024-06-21 20:03 | External Medical Summary | Summary of Care ---
Author Name Unknown Organization [facility] Address [address] [place] [address] Phone [phone] Care Team Providers Care Curatorial Specialist Name Role Phone Unavailable Primary Care Provider Unavailabl e Encounter Details Date Type Department Care Team (Latest Contact Info) Description 04/18/2024 1:00 PM EDT - 04/18/2024 1:04 PM EDT Hospital Encounter Radiology Film File [address] [place] [address] Arrived Discharge Disposition: Home - [...] CT (IMAGES ONLY, NO REPORT) Routine 04/18/2024 1:00 PM EDT documented in this encounter Results * RADIOLOGY EXAM - CT (IMAGES ONLY, NO REPORT) (04/18/2024 1:00 PM EDT) 04/18/2024 12:1 7 PM EDT Narrative Scheduling, Silent - 04/21/2024 12:24 AM EDT This is an imaging study not interpreted or resulted by a [facility] or [facility] contracted radiologist. Zach Doss DO RAD CT documented in this encounter Advance Directives * No Code (Latest Code Status on File) Date Activated Date Inactivated Comments 04/20/2024 7:15 PM This order ref lects the patients wishes and were consensually agreed upon. Question Answer Comments Discussion of Advance Directives occurred with: Patient
--- OUTSIDE RECORDS SUMMARY | 2024-06-21 20:03 | External Medical Summary | Summary of Care ---
Author Name Unknown Organization [facility] Address [address] [place] [address] Phone [phone] Care Team Providers Care Asset Protection Manager Name Role Phone Unavailable Primary Care Provider Unavailabl e Encounter Details Date Type Department Care Team (Latest Contact Info) Description 04/18/2024 12:40 PM EDT - 04/18/2024 12:44 PM EDT Hospital Encounter Radiology Film File [address] [place] [address] Arrived Discharge Disposition: Home - [...] GENERAL RAD (IMAGES ONLY,NO REPORT) Routine 04/18/2024 12:40 PM EDT documented in this encounter Results * RADIOLOGY EXAM - GENERAL RAD (IMAGES ONLY,NO REPORT) (04/18/2024 12:40 PM EDT) 04/18/2024 12:4 0 PM EDT Narrative Scheduling, Silent - 04/20/2024 3:32 PM EDT This is an imaging study not interpreted or resulted by a [facility]. Abiola Mo DO RADIOLOGY (RAD G ENERAL) documented in this encounter Advance Directives * No Code (Latest Code Status on File) Date Activated Date Inactivated Comments 04/20/2024 7:15 PM This order ref lects the patients wishes and were consensually agreed upon. Question Answer Comments Discussion of Advance Directives occurred with: Patient
--- OUTSIDE RECORDS SUMMARY | 2024-06-21 20:03 | External Medical Summary ---
Author Name Unknown Address Unknown Organization K01:[facility] [place] - [address] [facility] [place] [address] Laboratory Report Ordering Provider Test Date Status MARLON ZAYAS 04/21/2024 07:55:00 Final Anaerobic bottle no growth. Observation Date Value Abnormality Reference (Units ) Status Bacteria identified in Specimen by Culture 04/21/2024 07:55:00 [id number]^STAPH YLOCOCCUS AUREUS Very abnormal Final Aerobic bottle Staphylococcu s aureus
Refer to culture collected the same day for complete identification and/or susceptibilities. Gram Stain 04/21/2024 07:55:00 Aerobic pk le Gram positive cocci in clusters Very abnormal Final This is an appended report. These results have been appended to a previously preliminary verified report.
Test: Culture, Blood (Site 2)
Specimen Source: Blood, Venous
Specimen Type: Blood
Specimen Date: 04/21/2024 0755
Result Date: 04/26/2024 1504
Result Status: Final result
Abnormal: Yes
Resulting Lab: [facility] [place]
[address]
[facility] [address]

CULTURE

Aerobic bottle Staphylococcus aureus (Panic)

Refer to culture collected the same day for complete identification and/or
susceptibilities.

Anaerobic bottle no growth.

STAIN

Aerobic bottle Gram positive cocci in clusters

This is an appended report. These results have been appended to a
previously preliminary verified report.

null Performing Location LABOR[facility]ORY [facility] [place] - [address] [facility] [address]
--- OUTSIDE RECORDS SUMMARY | 2024-06-21 20:03 | External Medical Summary | Summary of Care ---
Author Name Unknown Organization [facility] Address [address] [place] [address] Phone [phone] Care Team Providers Care Hydraulic Plumber Name Role Phone Unavailable Primary Care Provider Unavailabl e Encounter Details Date Type Department Care Team (Latest Contact Info) Description 04/18/2024 12:20 PM EDT - 04/18/2024 12:24 PM EDT Hospital Encounter Radiology Film File [address] [place] [address] Arrived Discharge Disposition: Home - [...] CT (IMAGES ONLY, NO REPORT) Routine 04/18/2024 12:20 PM EDT documented in this encounter Results * RADIOLOGY EXAM - CT (IMAGES ONLY, NO REPORT) (04/18/2024 12:20 PM EDT) 04/18/2024 12:1 7 PM EDT Narrative Scheduling, Silent - 04/20/2024 3:39 PM EDT This is an imaging study not interpreted or resulted by a [facility] or [facility] contracted radiologist. Abiola Mo DO RAD CT documented in this encounter Advance Directives * No Code (Latest Code Status on File) Date Activated Date Inactivated Comments 04/20/2024 7:15 PM This order ref lects the patients wishes and were consensually agreed upon. Question Answer Comments Discussion of Advance Directives occurred with: Patient
--- OUTSIDE RECORDS SUMMARY | 2024-06-21 20:03 | External Medical Summary | Summary of Care ---
Author Name Unknown Organization [facility] Address [address] [place] [address] Phone [phone] Care Team Providers Care Promotion Manager Name Role Phone Unavailable Primary Care Provider Unavailabl e Encounter Details Date Type Department Care Team (Late st Contact Info) Description 04/18/2024 Orders Only General Internal Medicine, [facility] [address] [place] [address] Zach Doss, [address] [place] [address] Allergies No known active allergiesdocumented as of [...] on file Sexual Orientation Not on file documented as of this [...] Vaccine (FLU shot) (#1) 2024 Diabetes Screening 04/20/2027 04/20/2024 HPV (Gardasil) Vaccine Aged Out No [...]
--- OUTSIDE RECORDS SUMMARY | 2024-06-21 20:03 | External Medical Summary | Summary of Care ---
Author Name Unknown Organization [facility] Address [address] [place] [address] Phone [phone] Care Team Providers Care Premium Cancellation Clerk Name Role Phone Unavailable Primary Care Provider Unavailabl e Encounter Details Date Type Department Care Team (Latest Contact Info) Description 04/18/2024 1:15 PM EDT - 04/18/2024 1:19 PM EDT Hospital Encounter Radiology Film File [address] [place] [address] Arrived Discharge Disposition: Home - [...] CT (IMAGES ONLY, NO REPORT) Routine 04/18/2024 1:15 PM EDT documented in this encounter Results * RADIOLOGY EXAM - CT (IMAGES ONLY, NO REPORT) (04/18/2024 1:15 PM EDT) 04/18/2024 12:1 7 PM EDT Narrative Scheduling, Silent - 04/21/2024 12:31 AM EDT This is an imaging study not interpreted or resulted by a [facility] or [facility] contracted radiologist. Zach Doss DO RAD CT documented in this encounter Advance Directives * No Code (Latest Code Status on File) Date Activated Date Inactivated Comments 04/20/2024 7:15 PM This order ref lects the patients wishes and were consensually agreed upon. Question Answer Comments Discussion of Advance Directives occurred with: Patient
--- OUTSIDE RECORDS SUMMARY | 2024-06-21 20:03 | External Medical Summary | Summary of Care ---
Author Name Unknown Organization [facility] Address [address] [place] [address] Phone [phone] Care Team Providers Care Flow Specialist Name Role Phone Unavailable Primary Care Provider Unavailabl e Encounter Details Date Type Department Care Team (Latest Contact Info) Description 04/18/2024 12:55 PM EDT - 04/18/2024 12:59 PM EDT Hospital Encounter Radiology Film File [address] [place] [address] Arrived Discharge Disposition: Home - [...] CT (IMAGES ONLY, NO REPORT) Routine 04/18/2024 12:55 PM EDT documented in this encounter Results * RADIOLOGY EXAM - CT (IMAGES ONLY, NO REPORT) (04/18/2024 12:55 PM EDT) 04/18/2024 12:1 7 PM EDT Narrative Scheduling, Silent - 04/20/2024 4:11 PM EDT This is an imaging study [...]
--- OUTSIDE RECORDS SUMMARY | 2024-06-21 20:03 | External Medical Summary ---
Author Name Unknown Address Unknown Organization K01:LABORATORY [facility] [place] - [address] [place] [address] [facility] [address] Laboratory Report Ordering Provider Test Date Status MARLON ZAYAS 04/21/2024 07:56:00 Final Observation Date Value Abnormality Reference (Units ) Status WBC, Total 04/21/2024 07:56:00 31.37 Above high normal 4.00-10.80 (K/uL) Final RBC 04/21/2024 07:56:00 3.53 3.85-5.15 (M/uL) Final Hemoglobin 04/21/2024 07:56:00 10.7 Below low normal 12.0-15.3 (g/dL) Final HCT 04/21/2024 07:56:00 32.1 Below low normal 36.0-45.2 (%) Final MCV 04/21/2024 07:56:00 90.9 81.5-97.5 (fL) Final MCH 04/21/2024 07:56:00 30.3 27.0-34.0 (pg) Final MCHC 04/21/2024 07:56:00 33.3 32.0-36.0 (g/dL) Final RDW 04/21/2024 07:56:00 15.4 11.5-15.5 (%) Final Platelets 04/21/2024 07:56:00 274 140-400 (K/uL) Final MPV 04/21/2024 07:56:00 10.3 6.6-11.1 (fL) Final Nucleated erythrocytes/100 leukocytes [Ratio] in Blood by Automated count 04/21/2024 07:56:00 0 <=0 (/100 WBCs) Final Performing Location LABORATORY [facility] [place] - [address] [facility] [address]
--- OUTSIDE RECORDS SUMMARY | 2024-06-21 20:03 | External Medical Summary | Summary of Care ---
Author Name Unknown Organization [facility] Address [address] [place] [address] Phone [phone] Care Team Providers Care Senior Application Software Engineer Name Role Phone Unavailable Primary Care Provider Unavailabl e Encounter Details Date Type Department Care Team (Latest Contact Info) Description 04/18/2024 12:45 PM EDT - 04/18/2024 12:49 PM EDT Hospital Encounter Radiology Film File [address] [place] [address] Arrived Discharge Disposition: Home - [...] CT (IMAGES ONLY, NO REPORT) Routine 04/18/2024 12:45 PM EDT documented in this encounter Results * RADIOLOGY EXAM - CT (IMAGES ONLY, NO REPORT) (04/18/2024 12:45 PM EDT) 04/18/2024 12:1 7 PM EDT Narrative Scheduling, Silent - 04/20/2024 3:49 PM EDT This is an imaging study not interpreted or resulted by a [facility] or [facility] contracted radiologist. Abiola Mo DO RAD CT documented in this encounter Advance Directives * No Code (Latest Code Status on File) Date Activated Date Inactivated Comments 04/20/2024 7:15 PM This order ref lects the patients wishes and were consensually agreed upon. Question Answer Comments Discussion of Advance Directives occurred with: Patient
--- OUTSIDE RECORDS SUMMARY | 2024-06-21 20:03 | External Medical Summary ---
Author Name Unknown Address Unknown Organization K01:[place] [place] [address] [facility] [place] [id number] Laboratory Report Ordering Provider Test Date Status MARLON ZAYAS 04/21/2024 07:49:00 Final Observation Date Value Abnormality Reference (Units ) Status BUN 04/21/2024 07:49:00 16 6-20 (mg/dL) Final Creatinine 04/21/2024 07:49:00 0.6 0.5-1.0 (mg/dL) Final Glomerular filtration rate/1.73 sq M.predicted [Volume Rate/Area] in Serum, Plasma or Blood by Creatinine-based formula (CKD-EPI) 04/21/2024 07:49:00 >90 >=60 (mL/min) Final eGFR is calculated based on the CKD-EPI 2020 equation. Sodium 04/21/2024 07:49:00 140 135-146 (m mol/L) Final Potassium 04/21/2024 07:49:00 3.7 3.5-5.1 (m mol/L) Final Cl 04/21/2024 07:49:00 103 98-107 (mm ol/L) Final CO2 04/21/2024 07:49:00 26 22-32 (mmo l/L) Final Anion gap 04/21/2024 07:49:00 11 7-15 (mmol /L) Final Glucose 04/21/2024 07:49:00 106 70-120 (mg /dL) Final Albumin 04/21/2024 07:49:00 2.6 Below low normal 3.8 -5.0 (g/dL) Final AST (Aspartate aminotransferase) 04/21/2024 07:49:00 108 Above high normal 10-35 (U/L) Final Alk Phos 04/21/2024 07:49:00 227 Above high normal 35 -130 (U/L) Final Bilirubin, Total 04/21/2024 07:49:00 1.6 Above high no rmal <=1.2 (mg/dL) Final Calcium 04/21/2024 07:49:00 8.3 Below low normal 8.4 -10.2 (mg/dL) Final Protein 04/21/2024 07:49:00 5.5 Below low normal 6.0 -8.3 (g/dL) Final ALT (Alanine aminotransferase) 04/21/2024 07:49:00 112 Above high normal 10-35 (U/L) Final Performing Location [facility] [place] [address] [facility] [address]
--- OUTSIDE RECORDS SUMMARY | 2024-06-21 20:03 | External Medical Summary | Summary of Care ---
Author Name Unknown Organization [facility] Address [address] [place] [address] Phone [phone] Care Team Providers Care Avionics Systems Technician Name Role Phone Unavailable Primary Care Provider Unavailabl e Encounter Details Date Type Department Care Team (Latest Contact Info) Description 04/18/2024 1:20 PM EDT - 04/18/2024 1:24 PM EDT Hospital Encounter Radiology Film File [address] [place] [address] Arrived Discharge Disposition: Home - [...] CT (IMAGES ONLY, NO REPORT) Routine 04/18/2024 1:20 PM EDT documented in this encounter Results * RADIOLOGY EXAM - CT (IMAGES ONLY, NO REPORT) (04/18/2024 1:20 PM EDT) 04/18/2024 12:1 7 PM EDT Narrative Scheduling, Silent - 04/21/2024 12:36 AM EDT This is an imaging study not interpreted or resulted by a [facility] or [facility] contracted radiologist. Zach Doss DO RAD CT documented in this encounter Advance Directives * No Code (Latest Code Status on File) Date Activated Date Inactivated Comments 04/20/2024 7:15 PM This order ref lects the patients wishes and were consensually agreed upon. Question Answer Comments Discussion of Advance Directives occurred with: Patient
--- OUTSIDE RECORDS SUMMARY | 2024-06-21 20:03 | External Medical Summary | Summary of Care ---
Author Name Unknown Organization [facility] Address [address] [place] [address] Phone [phone] Care Team Providers Care Braille Typist Name Role Phone Unavailable Primary Care Provider Unavailabl e Encounter Details Date Type Department Care Team (Latest Contact Info) Description 04/18/2024 12:50 PM EDT - 04/18/2024 12:54 PM EDT Hospital Encounter Radiology Film File [address] [place] [address] Arrived Discharge Disposition: Home - [...] CT (IMAGES ONLY, NO REPORT) Routine 04/18/2024 12:50 PM EDT documented in this encounter Results * RADIOLOGY EXAM - CT (IMAGES ONLY, NO REPORT) (04/18/2024 12:50 PM EDT) 04/18/2024 12:1 7 PM EDT Narrative Scheduling, Silent - 04/20/2024 3:51 PM EDT This is an imaging study not interpreted or resulted by a [facility] or [facility] contracted radiologist. Abiola Mo DO RAD CT documented in this encounter Advance Directives * No Code (Latest Code Status on File) Date Activated Date Inactivated Comments 04/20/2024 7:15 PM This order ref lects the patients wishes and were consensually agreed upon. Question Answer Comments Discussion of Advance Directives occurred with: Patient
--- OUTSIDE RECORDS SUMMARY | 2024-06-21 20:03 | External Medical Summary ---
Author Name Unknown Address Unknown Organization K01:LABORATORY [facility] - [address] [facility] [id number] Laboratory Report Ordering Provider Test Date Status MARLON ZAYAS 04/21/2024 07:56:00 Final Observation Date Value Abnormality Reference (Units ) Status SYNC LEUKOCYTES IN BLOOD BY AUTOMATED COUNT 04/21/2024 07:56:00 31.37 Above high normal 4.00-10.80 (K/uL) Final Neutrophils/100 leukocytes in Blood by Manual count 04/21/2024 07:56:00 84.0 Above high normal 40.0-75.0 (%) Final Lymphocytes/100 leukocytes in Blood by Manual count 04/21/2024 07:56:00 7.0 Below low normal 18.0-42.0 (%) Final Monocytes/100 leukocytes in Blood by Manual count 04/21/2024 07:56:00 5.0 1.0-11.0 (%) Final Eosinophils/100 leukocytes in Blood by Manual count 04/21/2024 07:56:00 1.0 0.0-6.0 (%) Final Metamyelocytes/100 leukocytes in Blood by Manual count 04/21/2024 07:56:00 1.0 Above high normal <=0.0 (%) Final Myelocytes/100 leukocytes in Blood by Manual count 04/21/2024 07:56:00 2.0 Above high normal <=0.0 (%) Final Neutrophils [#/volume] in Blood by Manual count 04/21/2024 07:56:00 26.35 Above high normal 1.80-7.70 (K/uL) Final Lymphocytes [#/volume] in Blood by Manual count 04/21/2024 07:56:00 2.20 1.00-4.80 (K/uL) Final Monocytes [#/volume] in Blood by Manual count 04/21/2024 07:56:00 1.57 Above high normal 0.00-1.10 (K/uL) Final Eosinophils [#/volume] in Blood by Manual count 04/21/2024 07:56:00 0.31 0.00-0.70 (K/uL) Final Metamyelocytes [#/volume] in Blood by Manual count 04/21/2024 07:56:00 0.31 Above high normal <=0.00 (K/uL) Final Myelocytes [#/volume] in Blood by Manual count 04/21/2024 07:56:00 0.63 Above high normal <=0.00 (K/uL) Final Performing Location LABORATORY [facility] [place] - [address] [facility] [address]
--- OUTSIDE RECORDS SUMMARY | 2024-06-21 20:03 | External Medical Summary | Summary of Care ---
Author Name Unknown Organization [facility] Address [address] [place] [address] Phone [phone] Care Team Providers Care Inoculator Name Role Phone Unavailable Primary Care Provider Unavailabl e Encounter Details Date Type Department Care Team (Latest Contact Info) Description 04/18/2024 12:35 PM EDT - 04/18/2024 12:39 PM EDT Hospital Encounter Radiology Film File [address] [place] [address] Arrived Discharge Disposition: Home - [...] CT (IMAGES ONLY, NO REPORT) Routine 04/18/2024 12:35 PM EDT documented in this encounter Results * RADIOLOGY EXAM - CT (IMAGES ONLY, NO REPORT) (04/18/2024 12:35 PM EDT) 04/18/2024 12:1 7 PM EDT Narrative Scheduling, Silent - 04/20/2024 3:46 PM EDT This is an imaging study not interpreted or resulted by a [facility] or [facility] contracted radiologist. Abiola Mo DO RAD CT documented in this encounter Advance Directives * No Code (Latest Code Status on File) Date Activated Date Inactivated Comments 04/20/2024 7:15 PM This order ref lects the patients wishes and were consensually agreed upon. Question Answer Comments Discussion of Advance Directives occurred with: Patient
--- OUTSIDE RECORDS SUMMARY | 2024-06-21 20:04 | External Medical Summary | Summary of Care ---
Author Name Unknown Organization [facility] Address [address] [place] [address] Phone [phone] Care Team Providers Care Devulcanizer Loader Name Role Phone Unavailable Primary Care Provider Unavailabl e Encounter Details Date Type Department Care Team (Late st Contact Info) Description 04/18/2024 Orders Only Unspecified Department Abiola Mo, DO [address] [facility] [place] [address] Allergies No known active allergiesdocumented as of this encounter (statuses as of 04/20/2024) Medications No known medicationsdocumented as of this encounter (statuses as of 04/20/2024) Active Problems Problem Noted Date Diagnosed Date Bacteremia due to Staphylococcus 04/20/2024 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 Abiola Mo DO RADIOLOGY (RAD G ENERAL) documented in this encounter Advance Directives * No Code (Latest Code Status on File) Date Activated Date Inactivated Comments 04/20/2024 7:15 PM This order ref lects the patients wishes and were consensually agreed upon. Question Answer Comments Discussion of Advance Directives occurred with: Patient
--- OUTSIDE RECORDS SUMMARY | 2024-06-21 20:04 | External Medical Summary ---
Author Name Unknown Address Unknown Organization K01:[place] [place] [address] [facility] [address] [facility] [address] Laboratory Report Ordering Provider Test Date Status FRANCHESKA CHANDLER 04/20/2024 21:27:00 Final Observation Date Value Abnormality Reference (Units ) Status BUN 04/20/2024 21:27:00 16 6-20 (mg/dL) Final Creatinine 04/20/2024 21:27:00 0.6 0.5-1.0 (mg/dL) Final Glomerular filtration rate/1.73 sq M.predicted [Volume Rate/Area] in Serum, Plasma or Blood by Creatinine-based formula (CKD-EPI) 04/20/2024 21:27:00 >90 >=60 (mL/min) Final eGFR is calculated based on the CKD-EPI 2020 equation. Sodium 04/20/2024 21:27:00 139 135-146 (m mol/L) Final Potassium 04/20/2024 21:27:00 3.4 Below low normal 3.5 -5.1 (mmol/L) Final Cl 04/20/2024 21:27:00 102 98-107 (mm ol/L) Final CO2 04/20/2024 21:27:00 24 22-32 (mmo l/L) Final Anion gap 04/20/2024 21:27:00 13 7-15 (mmol /L) Final Glucose 04/20/2024 21:27:00 110 70-120 (mg /dL) Final Calcium 04/20/2024 21:27:00 8.2 Below low normal 8.4 -10.2 (mg/dL) Final Performing Location [facility] [place] [address] [place] [address]
--- OUTSIDE RECORDS SUMMARY | 2024-06-21 20:04 | External Medical Summary | Summary of Care ---
Author Name Unknown Organization [facility] Address [address] [place] [address] Phone [phone] Care Team Providers Care Senior Sales Compensation Analyst Name Role Phone Unavailable Primary Care Provider Unavailabl e Encounter Details Date Type Department Care Team (Late st Contact Info) Description 04/18/2024 Orders Only General Internal Medicine, [place] [facility] [address] [place] [address] aZch Doss, [address] [place] [address] Allergies No known active allergiesdocumented [...] interpreted or resulted by a [facility] or [facility] radiologist. Zach Ramirezueger DO RAD CT documented in this encounter Advance Directives * No Code (Latest Code Status on File) Date Activated Date Inactivated Comments 04/20/2024 7:15 PM This order ref lects the patients wishes and were consensually agreed upon. Question Answer Comments Discussion of Advance Directives occurred with: Patient
--- OUTSIDE RECORDS SUMMARY | 2024-06-21 20:04 | External Medical Summary | Summary of Care ---
Author Name Unknown Organization [facility] Address [address] [place] [address] Phone [phone] Care Team Providers Care External Grinder Name Role Phone Unavailable Primary Care Provider Unavailabl e Encounter Details Date Type Department Care Team (Late st Contact Info) Description 04/18/2024 Orders Only Unspecified Department Abiola Mo, DO [address] [facility] [place] [address] Social History Tobacco Use Types Packs/Day Years Used Date Smoking Tobacco: Never Assessed Sex and Gender Information Value Date Recorded [...] interpreted or resulted by a [facility] or [facility] contracted radiologist. Abiola Mo DO RAD CT documented in this encounter
--- OUTSIDE RECORDS SUMMARY | 2024-06-21 20:04 | External Medical Summary | Summary of Care ---
Author Name Unknown Organization [facility] Address [address] [place] [address] Phone [phone] Care Team Providers Care Industrial Cook Name Role Phone Unavailable Primary Care Provider Unavailabl e Encounter Details Date Type Department Care Team (Late st Contact Info) Description 04/18/2024 Orders Only General Internal Medicine, [place] [facility] [address] [place] [address] Zach Doss, [address] [place] [address] Allergies No known active allergiesdocumented [...] interpreted or resulted by a [facility] or [facility] contracted radiologist. Zach Ramirezueger DO RAD CT documented in this encounter Advance Directives * No Code (Latest Code Status on File) Date Activated Date Inactivated Comments 04/20/2024 7:15 PM This order ref lects the patients wishes and were consensually agreed upon. Question Answer Comments Discussion of Advance Directives occurred with: Patient
--- OUTSIDE RECORDS SUMMARY | 2024-06-21 20:04 | External Medical Summary | Summary of Care ---
Author Name Unknown Organization [facility] Address [address] [place] [address] Phone [phone] Care Team Providers Care Diffusion Furnace Operator Name Role Phone Unavailable Primary Care Provider Unavailabl e Encounter Details Date Type Department Care Team (Late st Contact Info) Description 04/18/2024 Orders Only Unspecified Department Abiola Mo, DO [address] [facility] [place] [address] Social History Tobacco Use Types [...] interpreted or resulted by a [facility] or [facility] contracted radiologist. Abiola Mo DO RAD CT documented in this encounter
--- OUTSIDE RECORDS SUMMARY | 2024-06-21 20:04 | External Medical Summary | Summary of Care ---
Author Name Unknown Organization [facility] Address [address] [place] [address] Phone [phone] Care Team Providers Care Marble Setter Name Role Phone Unavailable Primary Care Provider Unavailabl e Encounter Details Date Type Department Care Team (Late st Contact Info) Description 04/18/2024 Orders Only General Internal Medicine, [place] [facility] [address] [place] [address] Zach Doss, [address] [place] [address] Allergies No known active allergiesdocumented [...] interpreted or resulted by a [facility] or [facility] contracted radiologist. Zach Ramirezueger DO RAD CT documented in this encounter Advance Directives * No Code (Latest Code Status on File) Date Activated Date Inactivated Comments 04/20/2024 7:15 PM This order ref lects the patients wishes and were consensually agreed upon. Question Answer Comments Discussion of Advance Directives occurred with: Patient
--- OUTSIDE RECORDS SUMMARY | 2024-06-21 20:04 | External Medical Summary | Summary of Care ---
Author Name Unknown Organization [facility] Address [address] [place] [address] Phone [phone] Care Team Providers Care Casserole Preparer Name Role Phone Unavailable Primary Care Provider Unavailabl e Encounter Details Date Type Department Care Team (Late st Contact Info) Description 04/15/2024 Orders Only Unspecified Department Abiola Mo, DO [address] [facility] [place] [address] Social History Tobacco Use Types [...] interpreted or resulted by a [facility] or [facility] contracted radiologist. Abiola Mo DO RAD CT documented in this encounter
--- OUTSIDE RECORDS SUMMARY | 2024-06-21 20:04 | External Medical Summary | Summary of Care ---
Author Name Unknown Organization [facility] Address [address] [place] [address] Phone [phone] Care Team Providers Care Tumbler Tender Name Role Phone Unavailable Primary Care Provider Unavailabl e Encounter Details Date Type Department Care Team (Late st Contact Info) Description 04/18/2024 Orders Only Unspecified Department Abiola Mo, DO [address] [facility] [place] [address] Social History Tobacco Use Types [...] interpreted or resulted by a [facility] or [facility] contracted radiologist. Abiola Mo DO RAD CT documented in this encounter
--- OUTSIDE RECORDS SUMMARY | 2024-06-21 20:04 | External Medical Summary | Summary of Care ---
Author Name Unknown Organization [facility] Address [address] [place] [address] Phone [phone] Care Team Providers Care Wirer Name Role Phone Unavailable Primary Care Provider Unavailabl e Encounter Details Date Type Department Care Team (Late st Contact Info) Description 04/18/2024 Orders Only General Internal Medicine, [facility] [address] [place] [address] Zach Doss, [address] [place] [address] Allergies No known active allergiesdocumented [...] interpreted or resulted by a [facility] or [facility] contracted radiologist. Zach Ramirezueger DO RAD CT documented in this encounter Advance Directives * No Code (Latest Code Status on File) Date Activated Date Inactivated Comments 04/20/2024 7:15 PM This order ref lects the patients wishes and were consensually agreed upon. Question Answer Comments Discussion of Advance Directives occurred with: Patient
--- OUTSIDE RECORDS SUMMARY | 2024-06-21 20:04 | External Medical Summary | Summary of Care ---
Author Name Unknown Organization [facility] Address [address] [place] [address] Phone [phone] Care Team Providers Care District Court Justice Name Role Phone Unavailable Primary Care Provider Unavailabl e Encounter Details Date Type Department Care Team (Late st Contact Info) Description 04/15/2024 Orders Only General Internal Medicine, [facility] [address] [place] [address] Zach Doss, [address] [place] [address] Allergies No known active allergiesdocumented [...] interpreted or resulted by a [facility] radiologist. Zach Ramirezueger DO RAD CT documented in this encounter Advance Directives * No Code (Latest Code Status on File) Date Activated Date Inactivated Comments 04/20/2024 7:15 PM This order ref lects the patients wishes and were consensually agreed upon. Question Answer Comments Discussion of Advance Directives occurred with: Patient
--- OUTSIDE RECORDS SUMMARY | 2024-06-21 20:04 | External Medical Summary | Summary of Care ---
Author Name Unknown Organization [facility] Address [address] [place] [address] Phone [phone] Care Team Providers Care Preschool Assistant Name Role Phone Unavailable Primary Care Provider Unavailabl e Encounter Details Date Type Department Care Team (Late st Contact Info) Description 04/18/2024 Orders Only Unspecified Department Abiola Mo, DO [address] [facility] [place] [address] Social History Tobacco Use Types [...] interpreted or resulted by a [facility] or [facility] contracted radiologist. Abiola Mo DO RAD CT documented in this encounter
--- OUTSIDE RECORDS SUMMARY | 2024-06-21 20:04 | External Medical Summary | Summary of Care ---
Author Name Unknown Organization [facility] Address [address] [place] [address] Phone [phone] Care Team Providers Care Customer Counter Representative Name Role Phone Unavailable Primary Care Provider Unavailabl e Encounter Details Date Type Department Care Team (Late st Contact Info) Description 04/18/2024 Orders Only Unspecified Department Abiola Mo, DO [address] [facility] [place] [address] Social History Tobacco Use Types [...] interpreted or resulted by a [facility] or [facility] [facility] [employer] contracted radiologist. Abiola Mo DO RAD CT documented in this encounter
--- OUTSIDE RECORDS SUMMARY | 2024-06-21 20:04 | External Medical Summary | Summary of Care ---
Author Name Unknown Organization [facility] Address [address] [place] [address] Phone [phone] Care Team Providers Care Alligator Trapper Name Role Phone Unavailable Primary Care Provider Unavailabl e Encounter Details Date Type Department Care Team (Late st Contact Info) Description 04/18/2024 Orders Only General Internal Medicine, [place] [facility] [address] [place] [address] Zach Doss, [address] [place] [address] Allergies No known active allergiesdocumented [...] interpreted or resulted by a [facility] or [facility] contracted radiologist. Zach Ramirezueger DO RAD CT documented in this encounter Advance Directives * No Code (Latest Code Status on File) Date Activated Date Inactivated Comments 04/20/2024 7:15 PM This order ref lects the patients wishes and were consensually agreed upon. Question Answer Comments Discussion of Advance Directives occurred with: Patient
--- OUTSIDE RECORDS SUMMARY | 2024-06-21 20:04 | External Medical Summary | Summary of Care ---
Author Name Unknown Organization [facility] Address [address] [place] [address] Phone [phone] Care Team Providers Care Sales Assistant Institutional Sales Name Role Phone Unavailable Primary Care Provider Unavailabl e Encounter Details Date Type Department Care Team (Late st Contact Info) Description 04/18/2024 Orders Only General Internal Medicine, [place] [facility] [address] [place] [address] Zach Doss, [address] [place] [address] Allergies No known active allergiesdocumented [...] interpreted or resulted by a [facility] or [facility] radiologist. Zach Ramirezueger DO RAD CT documented in this encounter Advance Directives * No Code (Latest Code Status on File) Date Activated Date Inactivated Comments 04/20/2024 7:15 PM This order ref lects the patients wishes and were consensually agreed upon. Question Answer Comments Discussion of Advance Directives occurred with: Patient
--- OUTSIDE RECORDS SUMMARY | 2024-06-21 20:04 | External Medical Summary | Summary of Care ---
Author Name Unknown Organization [facility] Address [address] [place] [address] Phone [phone] Care Team Providers Care Board Operator Name Role Phone Unavailable Primary Care Provider Unavailabl e Encounter Details Date Type Department Care Team (Late st Contact Info) Description 04/18/2024 Orders Only General Internal Medicine, [place] [facility] [address] [place] [address] Zach Doss, [address] [place] [address] Allergies No known active allergiesdocumented [...] interpreted or resulted by a [facility] or [facility] contracted radiologist. Zach Ramirezueger DO RAD CT documented in this encounter Advance Directives * No Code (Latest Code Status on File) Date Activated Date Inactivated Comments 04/20/2024 7:15 PM This order ref lects the patients wishes and were consensually agreed upon. Question Answer Comments Discussion of Advance Directives occurred with: Patient
--- OUTSIDE RECORDS SUMMARY | 2024-06-21 20:04 | External Medical Summary | Summary of Care ---
Author Name Unknown Organization [facility] Address [address] [place] [address] Phone [phone] Care Team Providers Care Websphere Message Broker Developer Name Role Phone Unavailable Primary Care Provider Unavailabl e Encounter Details Date Type Department Care Team (Late st Contact Info) Description 04/18/2024 Orders Only General Internal Medicine, [place] [facility] [address] [place] [address] Zach Doss, [address] [place] [address] Allergies No known active allergiesdocumented [...] interpreted or resulted by a [facility] or [facility] contracted radiologist. Zach Doss DO RADIOLOGY (RAD GENER AL) documented in this encounter Advance Directives * No Code (Latest Code Status on File) Date Activated Date Inactivated Comments 04/20/2024 7:15 PM This order ref lects the patients wishes and were consensually agreed upon. Question Answer Comments Discussion of Advance Directives occurred with: Patient
--- OUTSIDE RECORDS SUMMARY | 2024-06-21 20:04 | External Medical Summary ---
Author Name Unknown Address Unknown Organization K01:LABORATORY [facility] [place] - [address] [facility] [place] [address] Laboratory Report Ordering Provider Test Date Status MARLON ZAYAS 04/21/2024 00:29:36 Final Observation Date Value Abnormality Reference (Units ) Status Methicillin resistant Staphylococcus aureus (MRSA) DNA [Presence] in Nose by ANGELA with probe detection 04/21/2024 00:29:36 Negative Negative Final No Methicillin resistant Sta phylococcus aureus detected by PCR (amplified probe). Performing Location LABORATORY [facility] - [address] [place] [address]
--- OUTSIDE RECORDS SUMMARY | 2024-06-21 20:04 | External Medical Summary | Summary of Care ---
Author Name Unknown Organization [facility] Address [address] [place] [address] Phone [phone] Care Team Providers Care Gas Pumping Station Helper Name Role Phone Unavailable Primary Care Provider Unavailabl e Encounter Details Date Type Department Care Team (Late st Contact Info) Description 04/18/2024 Orders Only Unspecified Department Abiola Mo, DO [address] [facility] [place] [address] Social History Tobacco Use Types [...] interpreted or resulted by a [facility] or [facility] contracted radiologist. Abiola Mo DO RAD CT documented in this encounter
--- OUTSIDE RECORDS SUMMARY | 2024-06-21 20:04 | External Medical Summary | Summary of Care ---
Author Name Unknown Organization [facility] Address [address] [place] [address] Phone [phone] Care Team Providers Care Patient Registration Clerk Name Role Phone Unavailable Primary Care Provider Unavailabl e Encounter Details Date Type Department Care Team (Late st Contact Info) Description 04/18/2024 Orders Only Unspecified Department Abiola Mo, DO [address] [facility] [place] [address] Social History Tobacco Use Types [...] interpreted or resulted by a [facility] or [facility] contracted radiologist. Abiola Mo DO RAD CT documented in this encounter
--- OUTSIDE RECORDS SUMMARY | 2024-06-21 20:04 | External Medical Summary | Summary of Care ---
Author Name Unknown Organization [facility] Address [address] [place] [address] Phone [phone] Care Team Providers Care Call Or Contact Centre Team Leader Name Role Phone Unavailable Primary Care Provider Unavailabl e Encounter Details Date Type Department Care Team (Late st Contact Info) Description 04/18/2024 Orders Only Unspecified Department Abiola Mo, DO [address] [facility] [place] [address] Social History Tobacco Use Types [...] (1 of 2) 02/13/2018 COVID-19 Vaccine ( - 2022-2 4 season) 2023 01/06/2021, 12/16/2020 [...] interpreted or resulted by a [facility] or [facility] contracted radiologist. Abiola Mo DO RADIOLOGY (RAD G ENERAL) documented in this encounter
[2024-06-21] MEDS ORDERED: ONDANSETRON INJ 2 MG/ML 2 ML VIAL IV PRN (20:25)
--- OUTSIDE RECORDS SUMMARY | 2024-06-22 00:35 | External Medical Summary | Summary of Care ---
Author Name Unknown Organization [facility] Address [address] [place] [address] Phone [phone] Care Team Providers Care Buffing Machine Operator Semiautomatic Name Role Phone Unavailable Primary Care Provider Unavailabl e Reason for Visit * Reason Onset Date Comments Advice 06/21/2024 Encounter Details Date Type Department Care Team (Late st Contact Info) Description 06/21/2024 Tele[place] [facility] [place] [address] [place] [address] Shiv Cespedes, DO [address] [place], [place] [id number] Advice Allergies No known active allergiesdocumented as of [...] encounter Miscellaneous Notes * Telephone Encounter - Alejandrina Hancock OSA - 06/21/2024 12:16 PM EDT Mari[place] caregiver states Pt was discharged from nursing facility on Wednesday06/19/24 w/PICC and IV antibiotics ended then and PICC still placed. Mariangel also states Pt has MRI sched for 07/25/[address] Montero office and she would like to know what to do in the interim regarding flushing and home careand to make sure infection is gone. * Telephone Encounter - Shiv Cespedes DO - 06/21/2024 12:08 PM EDT BRIEF TELEPHONE NOTE 06/21/2024 @ 12:08 PM Called the pt to discuss ABX. There was no answer. Message was left. If the patient returns the call, please relay the following message: I do not know why the patient left the SNF without ABX. Without knowing the details, I recommend togo to the nearest ED for re-evaluation and PICC placement. documented in this encounter Plan of Treatment Upcoming Encounters Date Type Department Care Team (Late st Contact Info) Description 07/25/2024 4:30 PM EST Appointment KEY, [place] [address] [place] [address] 07/25/2024 5:15 PM EST Appointment KEY, [address] [address] 07/25/2024 5:45 PM EST Appointment KEY [address] [address] 08/25/2024 9:30 AM EST Office Visit Neurosurgery, [address] [address] Bhanu Montero MD [facility] [address] Health Maintenance Due Date Last Done Comments [...] this encounter Medical Devices Implanted Type Area Airline Transport Pilot Device Identifier Shelf Expiration Date Model / Serial / Lot Cath Pwr Picc Solo Inj 4f - [id number] Implanted:Qty : 1 on 05/01/2024 at [facility] CR BARD : ACCESS SYSTEMS [id number] 08/22/2025 [id number] / / [id number] Cath Cv Lumen Single 5fr - [id number] Implanted:Qty : 1 on 05/06/2024 at [facility] Right: Chest CR BARD : PERIPHERAL VASCULAR [id number] 07/22/2027 [id number] / / [id number] documented as of this encounter Advance Directives [...] the patient have Health Care Power of Dyer Assistant? No * No Code Date Activated Date Inactivated Comments 04/20/2024 7:15 PM 04/22/2024 6:14 PM This order r eflects the patients wishes and were consensually agreed upon. Question Answer Comments Discussion of Advance Directives occurred with: Patient
--- OUTSIDE RECORDS SUMMARY | 2024-06-22 00:35 | External Medical Summary | Summary of Care ---
Author Name Unknown Organization [facility] Address [address] [place] [address] Phone [phone] Care Team Providers Care Gem Cutter Name Role Phone Unavailable Primary Care Provider Unavailabl e Encounter Details Date Type Department Care Team (Late st Contact Info) Description 06/02/2024 Telephone Infectious Disease, [place] [address] [place], [place] [id number] Shiv Cespedes, [address] [place], [place] [phone] Allergies No known active allergiesdocumented as of [...] Telephone Encounter - Wendy Hoffman LPN - 06/21/2024 12:56 PM EDT This is being taken care of in a separate encounter. Wendy Hoffman LPN Nurse Navigator ID * Telephone Encounter - Deepti Schofield OSA - 06/21/2024 8:19 AM EDT Can you please call [phone] is the number to call them back. [...] advise . * Telephone Encounter - Nanda Rela OSA - 06/20/2024 9:58 AM EDT Mariangel [...] Info) Description 07/25/2024 4:30 PM EST Appointment [address] [address] 07/25/2024 5:15 PM EST Appointment MRI, [place] [address] [place] [address] 07/25/2024 5:45 PM EST Appointment KEY [place] [address] [place] [address] 08/25/2024 9:30 AM EST Office Visit Neurosurgery, [place] [address] [place] [address] Bhanu Montero MD [address] [place] [address] Health Maintenance Due Date Last Done Comments [...] this encounter Medical Devices Implanted Type Area Sports Book Writer Device Identifier Shelf Expiration Date Model / Serial / Lot Cath Pwr Picc Solo Inj 4f - [id number] Implanted:Qty : 1 on 05/01/2024 at [facility] CR BARD : ACCESS SYSTEMS [id number] 08/22/2025 [id number] / / [id number] Cath Cv Lumen Single 5fr - [id number] Implanted:Qty : 1 on 05/06/2024 at [facility] Right: Chest CR BARD : PERIPHERAL VASCULAR [id number] 07/22/2027 [id number] / / [id number] documented as of this encounter Advance Directives [...] the patient have Health Care Power of Ship Ceiler? No * No Code Date Activated Date Inactivated Comments 04/20/2024 7:15 PM 04/22/2024 6:14 PM This order r eflects the patients wishes and were consensually agreed upon. Question Answer Comments Discussion of Advance Directives occurred with: Patient
--- OUTSIDE RECORDS SUMMARY | 2024-06-22 00:35 | External Medical Summary | Summary of Care ---
Author Name Unknown Organization [facility] Address [address] [place] [address] Phone [phone] Care Team Providers Care Director Of Quality Improvement Name Role Phone Unavailable Primary Care Provider Unavailabl e Reason for Visit * Reason Onset Date Comments Advice 06/21/2024 Encounter Details Date Type Department Care Team (Late st Contact Info) Description 06/21/2024 Tele[place] [facility] [place] [address] [place] [address] Shiv Cespedes, DO [address] [place], [place] [phone] Advice Allergies No known active allergiesdocumented as [...] Encounter - Wendy Hoffman LPN - 06/21/2024 12:38 PM EDT I called and spoke with Rebecca. They are willing to go to [facility] ED. I called the ED and gave them report on the patient, I spoke to Alicia. Wendy Hoffman LPN Nurse Navigator ID * Telephone Encounter - Alejandrina Hancock OSA [...] Description 07/25/2024 4:30 PM EST Appointment MRI, [place] [address] [place] [address] 07/25/2024 5:15 PM EST Appointment [facility], [place] [address] [place] [address] 07/25/2024 5:45 PM EST Appointment MRI, [place] [address] [place] [address] 08/25/2024 9:30 AM EST Office Visit Neurosurgery, [place] [address] [place] [address] Bhanu Montero MD [address] [place] [address] Health Maintenance Due Date Last Done Comments [...] of 2) 02/13/2018 COVID-19 Vaccine ( - 2023-2 5 season) 2024 01/06/2021, 12/16/2020 [...] this encounter Medical Devices Implanted Type Area Wind Project Manager Device Identifier Shelf Expiration Date Model / Serial / Lot Cath Pwr Picc Solo Inj 4f - [id number] Implanted:Qty : 1 on 05/01/2024 at [facility] CR BARD : ACCESS SYSTEMS [id number] 08/22/2025 [id number] / / [id number] Cath Cv Lumen Single 5fr - [id number] Implanted:Qty : 1 on 05/06/2024 at [facility] Right: Chest CR BARD : PERIPHERAL VASCULAR [id number] 07/22/2027 [id number] / / [id number] documented as of this encounter Advance Directives [...] the patient have Health Care Power of Naturopath? No * No Code Date Activated Date Inactivated Comments 04/20/2024 7:15 PM 04/22/2024 6:14 PM This order r eflects the patients wishes and were consensually agreed upon. Question Answer Comments Discussion of Advance Directives occurred with: Patient
--- OUTSIDE RECORDS SUMMARY | 2024-06-22 00:35 | External Medical Summary | Summary of Care ---
Author Name Unknown Organization [facility] Address [address] [place] [address] Phone [phone] Care Team Providers Care Lobster Catcher Name Role Phone Unavailable Primary Care Provider Unavailabl e Reason for Visit * Reason Onset Date Comments Advice 06/21/2024 Encounter Details Date Type Department Care Team (Late st Contact Info) Description 06/21/2024 Telephone [facility] [place] [address] [place] [address] Shiv Cespedes, DO [address] [place], [place] [phone] Advice Allergies No known active allergiesdocumented as [...] Description 07/25/2024 4:30 PM EST Appointment KEY, [place] [address] [place] [address] 07/25/2024 5:15 PM EST Appointment KEY, [address] [address] 07/25/2024 5:45 PM EST Appointment KEY [address] [address] 08/25/2024 9:30 AM EST Office Visit Neurosurgery, [address] [address] Bhanu Montero MD [facility] [address] Health Maintenance Due Date Last Done Comments [...] this encounter Medical Devices Implanted Type Area Lay Out Drafter Device Identifier Shelf Expiration Date Model / Serial / Lot Cath Pwr Picc Solo Inj 4f - [id number] Implanted:Qty : 1 on 05/01/2024 at [facility] CR BARD : ACCESS SYSTEMS [id number] 08/22/2025 [id number] / / [id number] Cath Cv Lumen Single 5fr - [id number] Implanted:Qty : 1 on 05/06/2024 at [facility] Right: Chest CR BARD : PERIPHERAL VASCULAR [id number] 07/22/2027 [id number] / / [id number] documented as of this encounter Advance Directives [...] the patient have Health Care Power of Power Supply Engineer? No * No Code Date Activated Date Inactivated Comments 04/20/2024 7:15 PM 04/22/2024 6:14 PM This order r eflects the patients wishes and were consensually agreed upon. Question Answer Comments Discussion of Advance Directives occurred with: Patient
--- NOTE | 2024-06-22 14:37 | Hospitalist Progress Note ---
Date of Service June 22, 2024 Assessment & Plan (1) Spinal epidural abscess: (2) Back pain: Plan 54 yo F s/p Abdominal and back pain, found initially on April 20, 2024 patient was transferred from [facility] to [facility], spinal infection, T8-T9 osteomyelitis, discitis and epidural abscess, blood cultures positive for MSSA bacteremia. Neurosurgery was consulted for epidural hematoma, MRI showed epidural abscess extending from skull base through the upper lumbar spine, and their team remains on board for her care. 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 She underwent emergent decompression, source control laminectomy of C7-T1 and T8- T10. MSSA blood culture on 04/21/2024, repeat blood culture on 04/23 showed no growth. NARINDER was negative for vegetation. Discharged to rehab [facility] on 06/01 from [facility] until 06/19. Patient was maintained on Ancef 2 g IV every 8 hours throughout that hospital stay with tentative end date placed on 06/18/2024 with the caveat that ID wanted repeat imaging prior to the discontinuation of antibiotics. Spinal Epidural Abscess Pt presenting per recs of ID Not currently septic, no leukocytosis, hemodynamically stable Repeat MRI of cervical, thoracic spine and lumbar spine ordered on 06/22 per recs of pt's Neurosurgeon at [facility] ID consulted, appreciate recs CM involved- pt will need acute rehab if she is to continue with IV abx for administration Continue with IV Ancef at this time PRN pain control PT/OT Diet: Regular DVT prophylaxis: SCDs Dispo: will need acute rehab placement for continued abx Admission and Anticipated Discharge Date Admission Date: June 21, 2024 Subjective Patient was seen walking around the hallway with her walker initially Back in her room noted that she was not having pain Later advised by nursing that she was itchy Attempts made to contact patient's friend Rebecca via telephone to provide update at about 7:30PM were unsuccessful. Review of Systems Review of Systems: All systems reviewed & are unremarkable except as noted in Subjective Physical Exam Physical Exam: General: Alert, oriented. No acute distress Psych: Appropriate mood and affect Neuro:difficulty with ambulation, walker needed HEENT: NC/AT CV: RRR Resp: Breath sounds clear bilaterally, no increased effort of breathing. Abdomen: Soft, nontender Extremities: Trace edema in lower extremities bilaterally. Results & Data Results & Data Vital Signs (Past 12 Hours) Vital Signs Temp Pulse Resp BP Pulse Ox O2 Del Method 06/22/24 07:22 36.5 C 68 16 132/81 98 Room Air Diagnostic Findings Cervical Spine MRI 06/21/24 15:10 MRI OF THE CERVICAL SPINE WITH AND WITHOUT CONTRAST CLINICAL HISTORY: epidural abscess, ? improving or worsening, ID req COMPARISON: CTA of the neck and cervical spine CT April 18, 2024. TECHNIQUE: Utilizing a 1.5 Laury magnet and dedicated coil, multiplanar, multiecho imaging of the cervical spine was performed before and after intravenous administration of 6.2 of Gadavist. FINDINGS: Alignment of the cervical spine is anatomic. Vertebral body heights are maintained. No marrow edema or marrow placement is present. There are no cervical spine fractures. Cervical cord signal and caliber are normal. No residual epidural fluid collection is identified status post multilevel decompression within the cervical spine. Postoperative findings within the posterior aspect of the cervical spine are noted, including a rim-enhancing fluid collection which extends from the mid cervical spine to the upper thoracic spine. This measures approximately 4.7 x 2.6 x 1.5 cm. This is postsurgical. No additional fluid collections are present. Enhancing intradural extramedullary mass within the canal at the T4 level measures 1.6 x 1 cm. Axial images through the portion of the spine were not obtained. This results in severe central canal stenosis with cord compression. There is no cord edema. This is suggestive of meningioma. No additional intracanalicular abnormalities are identified. There is no central canal stenosis within the cervical spine. Moderate multilevel ne ural foraminal stenosis is due to uncovertebral hypertrophy and facet arthrosis. IMPRESSION: 1. Status post multilevel cervical decompression. No residual epidural fluid abscess. 2. Postoperative findings within the posterior cervical and upper thoracic spines, including a rim-enhancing 4.7 x 2.6 x 1.5 cm fluid collection. This is nonspecific although not unexpected in the early postoperative setting. A seroma is favored. 3. Patent central canal within the cervical spine. Moderate multilevel neural foraminal stenosis due to facet arthrosis and uncovertebral hypertrophy. 4. 1.6 x 1 cm enhancing intradural extramedullary mass at the T4 level. This is suggestive of a meningioma which results in severe central canal stenosis with cord compression. No cord edema. ACT 112: Negative or not required by law. Electronically signed by: Edwin Spring M.D. 06/21/2024 5:58 PM Lumbar Spine MRI 06/22/24 14:21 MR lumbar spine wo/w con CLINICAL HISTORY: spinal epidural abscess TECHNIQUE: 3 plane localizer images, sagittal T2, sagittal T1, sagittal STIR, axial T1, axial T2 along with postcontrast axial T1 and sagittal T1 fat- saturated sequences were obtained of the lumbar spine, before and after intravenous administration of 12 mL of MultiHance. Comparison: Comparison is made to CT lumbar spine 04/18/2024 FINDINGS: The alignment is anatomical. L1-L2: No significant abnormality. L2-L3: There is a broad-based posterior disc bulge without significant canal or neuroforaminal stenosis. L3-L4: No significant abnormality. L4-L5: No significant abnormality. L5-S1: No significant abnormality. The spinal ligaments are intact, without evidence of disruption or abnormal signal intensity. The spinal cord is normal in signal intensity and there is no evidence of cord contusion. There is no evidence of an extradural, intradural, extramedullary or intramedullary lesion. Mild soft tissue edema is seen, nonspecific. 4 thoracic spinal findings please see MRI thoracic spine performed same day. IMPRESSION: Mild disc disease without significant canal or neural foraminal stenosis. No acute abnormality is seen in the lumbar spine. ACT 112: Negative or not required by law. Electronically signed by: Boris Spence M.D. 06/22/2024 7:03 PM Thoracic Spine MRI 06/22/24 14:21 MR thoracic spine wo/w con CLINICAL HISTORY: spinal epidural abscess TECHNIQUE: Multiplanar sequences through the thoracic spine were obtained, without and with intravenous contrast. Comparison: Comparison is made to CT thoracic spine 04/18/2024 FINDINGS: The alignment is anatomical. Disks are normal in height and signal. The spinal canal and neural foramina are patent. There is a 35 x 4 mm region of enhancing soft tissue in the posterior aspect of the vertebral bodies of T8 and T9. The vertebral bodies are minimally edematous with no drainable fluid collection seen. Postsurgical changes are seen in the posterior soft tissues. The spinal cord is normal in signal intensity and there is no evidence of cord contusion. There is an intradural extra medullary region centered around the T4 vertebral level measuring 16 x 11 mm in diameter with uniform enhancement. There is mass effect upon the spinal canal. It does not project into the neural foramen. Mild soft tissue edema and enhancement are seen in the cervical spine as well as the lower midline thoracic spine. IMPRESSION: 1. Minimal edema of the T8 and T9 vertebral bodies which may represent recent discitis/osteomyelitis, continued infection cannot be entirely excluded by MRI. No portia fluid signal is seen to suggest drainable abscess. Adjacent soft tissue thickening and enhancement is likely postprocedural. 2. Intradural extramedullary lesion at T4 which may represent a spinal meningioma or less likely schwannoma. ACT 112: Negative or not required by law. Electronically signed by: Boris Spence M.D. 06/22/2024 6:51 PM
--- NOTE | 2024-06-22 15:28 | Infectious Disease Consult ---
Date of Service June 22, 2024 Telehealth Information I performed this visit using a real-time telehealth connection between my location and the patients location ([facility]). After connecting through interactive tele-video, patient was identified by name and date of and/or wristband check.Patient (or authorized healthcare international representative) was informed that this was a telemedicine visit and it was being conducted confidentially over secure lines. My office door was closed and no one else was present in the room with me.Patient (or authorized healthcare international representative) provided consent to proceed with the visit, expressed an understanding of privacy and security of the telemedicine visit, and gave permission to have a hospital international representative in the room in order to assist with the visit and to conduct portions of the visit, as needed. I informed the patient (or authorized healthcare international representative) that I reviewed their record and presented the opportunity for them to ask any questions regarding the visit today. The patient agreed to participate. Assessment & Plan (1) Spinal epidural abscess: (2) Vertebral osteomyelitis: (3) Status post incision and drainage: (4) MSSA (methicillin susceptible Staphylococcus aureus) infection: Plan Please continue on IV cefazolin for now. If the MRI studies to be performed today showed resolution of the abscess with no residual infection, she will not need any further antibiotics. However, if the MRI is still concerning for residual infection, she will have to keep her PICC line and arrange for home infusion with IV Ancef. Thank you for consulting Infectious Disease. We will continue to follow. History of Present Illness History of Present Illness Ms. Keller is a 54 yo woman with medical Hx of spinal epidural abscess and cervical spine osteomyelitis who was admitted to [facility] on 06/21/2024 after being instructed by my colleague to go to the emergency department and arrange for further antibiotics pending repeat MRI of the spine. History goes back to late March 2024 when she presented to [facility] with constipation and bloating with CT imaging suggesting of paravertebral infection with CT spine confirming the findings. Her blood culture at that time came back positive for MSSA. Therefore, she was transferred to [facility] with imaging on admission showing dorsal lower lumbar spine epidural abscess with ventral epidural abscess extending from the skull base down to the lumbar spine. Also, blood culture sent on admission came back positive for MSSA. She was eventually taken for I and D with multiple hemilaminectomies/laminectomies including cervical spine down to the lower thoracic spine on 04/22/2024. All intraoperative cultures came back negative. She was eventually sent out on IV cefazolin to complete a course of 8 weeks with anticipated end date of 06/18/2024 (with the condition of obtaining repeat MRI spine to confirm the resolution of abscess prior to the end date of antibiotics). Apparently, the patient did not have a repeat MRI by 06/18/2024 and she was sent out from her senior living home on no antibiotics. Therefore, my colleague, Dr. Cespedes contacted her and instructed her to go to [facility] for further management and to arrange for re- initiation of IV antibiotics pending repeat MRI spine. During today's encounter, the patient mentioned that she has not had any fever or chills and she continues to ambulate via walker but has been regaining her strength slowly. Allergies Allergy/AdvReac Type Severity Reaction Status Date / Time No Known Allergies Allergy Verified 06/21/24 15:08 Home Medications Medication Instructions Recorded Confirmed Type No Known Home Medications 04/18/24 06/21/24 History Patient History Medical History Transaminitis Hyponatremia Pericardial effusion Pleural effusion on left Vertebral abscess Osteomyelitis of thoracic vertebra Discitis thoracic region Sepsis Surgical History (Updated 06/22/24 @ 15:28 by Zackary Araujo MD) H/O laminectomy (04/22/24) LAMINECTOMY DECOMPRESSION SPINAL CORD POSTERIOR LUMBAR [facility] History of wisdom tooth extraction Family History Other Adopted Social History Smoking Status: Never smoker Second Hand Exposure: No; Do You Dip or Chew Tobacco: No; Hx Alcohol Use: Yes Alcohol type: beer Hx Substance Use: No Preferred Language: [place] Communication Ability: Effective Gui Developer Required: No Beliefs That Will Affect Care: None marital status: Single Current Living Situation: Alone current occupational status: employed 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 Physical Exam Couldn't be performed as the encounter was conducted via telemed. Results & Data Vital Signs (Past 12 Hours) Vital Signs Temp Pulse Resp BP Pulse Ox O2 Del Method 06/22/24 14:36 37.1 C 80 16 107/74 97 Room Air 06/22/24 07:22 36.5 C 68 16 132/81 98 Room Air Diagnostic Findings Imaging: Cervical MRI on 06/21: 1. Status post multilevel cervical decompression. No residual epidural fluid abscess. 2. Postoperative findings within the posterior cervical and upper thoracic spines, including a rim-enhancing 4.7 x 2.6 x 1.5 cm fluid collection. This is nonspecific although not unexpected in the early postoperative setting. A seroma is favored. 3. Patent central canal within the cervical spine. Moderate multilevel neural foraminal stenosis due to facet arthrosis and uncovertebral hypertrophy. 4. 1.6 x 1 cm enhancing intradural extramedullary mass at the T4 level. This is suggestive of a meningioma which results in severe central canal stenosis with cord compression. No cord edema.
[2024-06-22] MEDS: hydrOXYzine HCl 25 MG TAB PO STA (16:49)
[2024-06-22] MEDS: ACETAMINOPHEN 500 MG TAB PO ONE (16:49)
[2024-06-22] MEDS: GADOBUTROL 65ML VIAL IV ONE (18:20)
--- NOTE | 2024-06-22 18:53 | Magnetic Resonance Report ---
MR thoracic spine wo/w con CLINICAL HISTORY: spinal epidural abscess TECHNIQUE: Multiplanar sequences through the thoracic spine were obtained, without and with intraveno us contrast. Comparison: Comparison is made to CT thoracic spine 04/18/2024 FINDINGS: The alignment is anatomical. Disks are normal in height and signal. The spinal canal and neural foramina are patent. There is a 35 x 4 mm region of enhancing soft tissue in the posterior aspect of the vertebral bodies of T8 and T9. The vertebral bodies are minimally edematous with no drainable fluid collection seen. P ostsurgical changes are seen in the posterior soft tissues. The spinal cord is normal in signal inten sity and there is no evidence of cord contusion. There is an intradural extra medullary region center ed around the T4 vertebral level measuring 16 x 11 mm in diameter with uniform enhancement. There is mass effect upon the spinal canal. It does not project into the neural foramen. Mild soft tissue yuliya a and enhancement are seen in the cervical spine as well as the lower midline thoracic spine. IMPRESSION: 1. Minimal edema of the T8 and T9 vertebral bodies which may represent recent discitis/osteomyelitis , continued infection cannot be entirely excluded by MRI. No portia fluid signal is seen to suggest dr ainable abscess. Adjacent soft tissue thickening and enhancement is likely postprocedural. 2. Intradural extramedullary lesion at T4 which may represent a spinal meningioma or less likely shamar wannoma. ACT 112: Negative or not required by law. Electronically signed by: Boris Spence M.D. 06/22/2024 6:51 PM
--- NOTE | 2024-06-22 19:04 | Magnetic Resonance Report ---
MR lumbar spine wo/w con CLINICAL HISTORY: spinal epidural abscess TECHNIQUE: 3 plane localizer images, sagittal T2, sagittal T1, sagittal STIR, axial T1, axial T2 briana g with postcontrast axial T1 and sagittal T1 fat-saturated sequences were obtained of the lumbar spin e, before and after intravenous administration of 12 mL of MultiHance. Comparison: Comparison is made to CT lumbar spine 04/18/2024 FINDINGS: The alignment is anatomical. L1-L2: No significant abnormality. L2-L3: There is a broad-based posterior disc bulge without significant canal or neuroforaminal stenos is. L3-L4: No significant abnormality. L4-L5: No significant abnormality. L5-S1: No significant abnormality. The spinal ligaments are intact, without evidence of disruption or abnormal signal intensity. The spi nal cord is normal in signal intensity and there is no evidence of cord contusion. There is no eviden ce of an extradural, intradural, extramedullary or intramedullary lesion. Mild soft tissue edema is s een, nonspecific. 4 thoracic spinal findings please see MRI thoracic spine performed same day. IMPRESSION: Mild disc disease without significant canal or neural foraminal stenosis. No acute abnormality is see n in the lumbar spine. ACT 112: Negative or not required by law. Electronically signed by: Boris Specne M.D. 06/22/2024 7:03 PM
[2024-06-23 09:02] LABS: Basophils # (auto) 0.07 K/uL (0.00-0.20); Eosinophils # (auto) 0.17 K/uL (0.00-0.50); Eosinophils % (auto) 2.5 %; Hemoglobin 13.7 g/dl (12.0-16.0); Immature Granulocytes # (auto) 0.02 K/uL (0.01-0.20); Immature Granulocytes % (auto) 0.3 %; Lymphocytes # (auto) 1.29 K/uL (1.20-3.40); Lymphocytes % (auto) 19.2 %; Mean Corpuscular Hemoglobin 29.6 pg (25.0-34.0); Mean Corpuscular Hgb Conc 32.6 g/dL (32.0-36.0); Mean Corpuscular Volume 90.7 fL (80.0-100.0); Mean Platelet Volume 9.8 fL (9.4-12.4); Monocytes # (auto) 0.57 K/uL (0.11-0.59); Monocytes % (auto) 8.5 %; Neutrophils % (auto) 68.5 %; Platelet Count 320 K/uL (130-400); RDW Coefficient of Variation 13.7 % (11.5-14.5); RDW Standard Deviation 46.4 fL (36.4-46.3); Red Blood Count 4.63 M/uL (4.20-5.40); White Blood Count 6.72 K/ul (4.8-10.8)
[2024-06-23 09:17] LABS: BUN Creatinine Ratio 19.4 (10-20); Calcium 9.8 mg/dl (8.6-10.3); Creatinine Clr Calc Pharmacy 79.7 ml/min
--- NOTE | 2024-06-23 16:17 | Hospitalist Progress Note ---
Date of Service June 23, 2024 Assessment & Plan (1) Spinal epidural abscess: (2) Back pain: Plan 54 yo F s/p Abdominal and back pain, found initially on April 20, 2024 patient was transferred from [facility] to [facility], spinal infection, T8-T9 osteomyelitis, discitis and epidural abscess, blood cultures positive for MSSA bacteremia. Neurosurgery was consulted for epidural hematoma, MRI showed epidural abscess extending from skull base through the upper lumbar spine, and their team remains on board for her care. 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 She underwent emergent decompression, source control laminectomy of C7-T1 and T8- T10. MSSA blood culture on 04/21/2024, repeat blood culture on 04/23 showed no growth. NARINDER was negative for vegetation. Discharged to rehab [place] [facility] on 06/01 from [facility] until 06/19. Patient was maintained on Ancef 2 g IV every 8 hours throughout that hospital stay with tentative end date placed on 06/18/2024 with the caveat that ID wanted repeat imaging prior to the discontinuation of antibiotics. Spinal Epidural Abscess Pt presenting per recs of ID Not currently septic, no leukocytosis, hemodynamically stable Repeat MRI of cervical, thoracic spine and lumbar spine ordered on 06/22 per recs of pt's Neurosurgeon [place] [facility] [place] consulted, appreciate recs. Recommended/stated the following: "Please continue on IV cefazolin for now.If the MRI studies to be performed today showed resolution of the abscess with no residual infection, she will not need any further antibiotics. However, if the MRI is still concerning for residual infection, she will have to keep her PICC line and arrange for home infusion with IV Ancef." CM involved- pt will need acute rehab if she is to continue with IV abx for administration Continue with IV Ancef at this time PRN pain control PT/OT 06/23- awaiting further recs from ID Diet: Regular DVT prophylaxis: SCDs Dispo: will need acute rehab placement for continued abx Admission and Anticipated Discharge Date Admission Date: June 21, 2024 Subjective patient was seen laying in bed resting comfortably Denied acute concerns States she has been up and walking multiple times Denies any fevers chills or night sweats Review of Systems Review of Systems: All systems reviewed & are unremarkable except as noted in Subjective Physical Exam Physical Exam: General: Alert, oriented. No acute distress Psych: Appropriate mood and affect Neuro:difficulty with ambulation, walker needed HEENT: NC/AT CV: RRR Resp: Breath sounds clear bilaterally, no increased effort of breathing. Abdomen: Soft, nontender Extremities: Trace edema in lower extremities bilaterally. Results & Data Results & Data Vital Signs (Past 12 Hours) Vital Signs Temp Pulse Pulse Resp BP Pulse Ox O2 Del Method 06/23/24 12:26 37.1 C 78 18 124/70 96 Room Air 06/23/24 08:00 36.6 C 73 76 16 122/70 96 Room Air 06/23/24 07:06 36.8 C 79 16 134/86 98 Room Air 06/23/24 07:00 Room Air
[2024-06-23] MEDS: ACETAMINOPHEN 325 MG TAB PO PRN (20:05)
[2024-06-24 06:14] LABS: Basophils # (auto) 0.07 K/uL (0.00-0.20); Eosinophils # (auto) 0.38 K/uL (0.00-0.50); Eosinophils % (auto) 5.4 %; Hematocrit (blood only) 41.1 % (37.0-47.0); Hemoglobin 13.2 g/dl (12.0-16.0); Immature Granulocytes # (auto) 0.01 K/uL (0.01-0.20); Immature Granulocytes % (auto) 0.1 %; Lymphocytes # (auto) 1.85 K/uL (1.20-3.40); Lymphocytes % (auto) 26.2 %; Mean Corpuscular Hemoglobin 28.9 pg (25.0-34.0); Mean Corpuscular Hgb Conc 32.1 g/dL (32.0-36.0); Mean Corpuscular Volume 89.9 fL (80.0-100.0); Mean Platelet Volume 10.8 fL (9.4-12.4); Monocytes # (auto) 0.73 K/uL (0.11-0.59); Monocytes % (auto) 10.3 %; Neutrophils # (auto) 4.02 K/uL (1.40-6.50); Platelet Count 298 K/uL (130-400); RDW Coefficient of Variation 13.8 % (11.5-14.5); RDW Standard Deviation 45.8 fL (36.4-46.3); Red Blood Count 4.57 M/uL (4.20-5.40); White Blood Count 7.06 K/ul (4.8-10.8)
[2024-06-24 06:34] LABS: BUN Creatinine Ratio 24.2 (10-20); Calcium 9.7 mg/dl (8.6-10.3); Potassium 4.5 mmol/L (3.5-5.1)
[2024-06-24 07:44] VITALS: BP 129/74; PULSE 76; RESP 18; TEMP 97.3; O2SAT 97
--- NOTE | 2024-06-24 10:10 | Hospitalist Progress Note ---
Date of Service June 24, 2024 Assessment & Plan (1) Spinal epidural abscess: (2) Back pain: Plan 54 yo F s/p Abdominal and back pain, found initially on April 20, 2024 patient was transferred from [facility] to [facility], spinal infection, T8-T9 osteomyelitis, discitis and epidural abscess, blood cultures positive for MSSA bacteremia. Neurosurgery was consulted for epidural hematoma, MRI showed epidural abscess extending from skull base through the upper lumbar spine, and their team remains on board for her care. 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 She underwent emergent decompression, source control laminectomy of C7-T1 and T8- T10. MSSA blood culture on 04/21/2024, repeat blood culture on 04/23 showed no growth. NARINDER was negative for vegetation. Discharged to rehab [facility] [facility] on 06/01 from [facility] until 06/19. Patient was maintained on Ancef 2 g IV every 8 hours throughout that hospital stay with tentative end date placed on 06/18/2024 with the caveat that ID wanted repeat imaging prior to the discontinuation of antibiotics. Spinal Epidural Abscess Pt presenting per recs of ID Not currently septic, no leukocytosis, hemodynamically stable Repeat MRI of cervical, thoracic spine and lumbar spine ordered on 06/22 per recs of pt's Neurosurgeon at [facility] [place] consulted, appreciate recs. Recommended/stated the following: "Please continue on IV cefazolin for now.If the MRI studies to be performed today showed resolution of the abscess with no residual infection, she will not need any further antibiotics. However, if the MRI is still concerning for residual infection, she will have to keep her PICC line and arrange for home infusion with IV Ancef." CM involved- pt will need acute rehab if she is to continue with IV abx for administration Continue with IV Ancef at this time PRN pain control PT/OT 06/23- awaiting further recs from ID Diet: Regular DVT prophylaxis: SCDs Dispo: will need acute rehab placement for continued abx Admission and Anticipated Discharge Date Admission Date: June 21, 2024 Results & Data Results & Data Vital Signs (Past 12 Hours) Vital Signs Temp Pulse Resp BP Pulse Ox O2 Del Method 06/24/24 07:43 36.3 C L 76 18 129/74 97 Room Air
--- NOTE | 2024-06-24 10:42 | Discharge Summary ---
Discharge Summary Date of Service June 24, 2024 Principal Dx & Hospital Course #1 = Principal Diagnosis (1) Spinal epidural abscess: (2) Back pain: Plan 54 yo F who presented with abdominal and back pain initially on April 20, 2024. Patient was transferred from [facility] to [facility] for a spinal infection, T8-T9 osteomyelitis, discitis and epidural abscess. Blood cultures also positive for MSSA bacteremia. Neurosurgery was consulted for epidural hematoma. MRI showed epidural abscess extending from skull base through the upper lumbar spine, and their team remains on board for her care. 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 She underwent emergent decompression, source control, laminectomy of C7-T1 and T8-T10. MSSA blood culture on 04/21/2024, repeat blood culture on 04/23 showed no growth. NARINDER was negative for vegetations. Dis[facility] to [facility] on 06/01 from [facility] where she stayed until 06/19. Patient was maintained on Ancef 2 g IV every 8 hours throughout the rehab stay with tentative end date placed on 06/18/2024 with the caveat that ID wanted repeat imaging prior to the discontinuation of antibiotics. She was discharged from rehab on 06/19 with PICC/left subclavian line still in place. Presented to [facility] at the request of ID for MRIs of her spine and possible removal of tunneled catheter. Repeat MRIs of cervical, thoracic and lumbar spine were ordered while at [facility] per the recommendations of neurosurgeon Dr Bhanu Montero (sent in scripts with orders). Neurosurgery advised follow up with Infectious Disease. [facility] Infectious Disease was consulted and Dr Araujo initially noted the following: "Please continue on IV cefazolin for now.If the MRI studies to be performed today showed resolution of the abscess with no residual infection, she will not need any further antibiotics. However, if the MRI is still concerning for residual infection, she will have to keep her PICC line and arrange for home infusion with IV Ancef." Once the MRIs were reviewed, Dr Araujo later advised based on the MRI studies: "Lets stop all antibiotics and send out. Please set her an appointment with us in 6 weeks" General surgery was consulted at [facility] for removal of PICC/left subclavian line previously placed at [facility] in April for removal. It was removed by Dr Houser without incident/complication on 06/24/24. Please ensure close follow up with [facility] Infectious Disease in 6 weeks Please ensure close follow up with Neurosurgery. Per pt and family request, pt also discharged with a paper script for outpatient PT/OT services. On the day of discharge, vitals stable. No leukocytosis or fevers noted throughout her stay. Pt ambulating the halls with use of a walker. Pt was discharged in stable condition. Notes For Next Care Provider Per ID: D/C antibiotics at this time. PICC/left subclavian line removed by General Surgery. Please ensure close follow up with Infectious Disease in 6 weeks Please ensure close follow up with Neurosurgery. Per pt and family request, pt also discharged with a paper script for outpatient PT/OT services. Medication Changes From Visit None Admission HPI Per Admitting Provider This is a 54 yo F with complicated medical history, presenting from outpatient at home status, after being discharged by [facility] on 06/19 with tunneled PICC line in place, and no further antibiotic therapy. ID has recommended continued antibiotics of ancef 2 g IV Q8H until follow up imaging with complete spine MRI with and without contrast. Due to pt discharge, she has been off antibiotics since 06/19 with line still present in the chest wall. Imaging of the cspine is ordered for today in the ER, and other arrangements have been made to for outpatient thoracic and lumbar spine imaging on Wednesday at 11:30a. Today the patient feels very well, she has no acute complaints, no back pain or tenderness, no fevers, chills or sweats. Has no difficulty ambulating. Lives at home by herself in an apartment. Hospitalization Summary: 04/18/2024 presented to [facility] ER-Symptoms started 3 days prior with abdominal pain and back pain. She was seen 3 days prior also in the ED where she was found with significant fecal impaction and a CT abdomen. She was seen by General surgery outpatient where she was found with worsening back pain and ambulatory dysfunction. Additionally, lower thoracic vertebral bodies was noted and was greatest at T9. Thoracic progression on prior thoracic findings at T8-T9 with left paravertebral phlegmon/developing abscess and consistent with osteomyelitis. 04/20/2024 transferred from [facility] to [facility] for further treatment For surgical evaluation for possible spinal infection ratio but was noted to have difficulty ambulating, was found to be septic on admission with white cell count 27, elevated inflammatory markers. Imaging revealed left-sided pleural effusion and vertebral imaging concerning for T8-T9 osteomyelitis, diskitis, and epidural abscess. Blood culture grew MSSA bacteremia, repeat blood culture showed no growth. Neurosurgery and Orthopedic Surgery were consulted for epidural hematoma, patient underwent MRI which showed epidural abscess extending from skull base through upper lumbar spine and also in the lower spine. Also incidental extramedullary tumor of the upper thoracic spine likely meningioma. Patient did not have any neurological deficits, or signs of cord compression, no weakness or hyperreflexia, no sensory level. Findings positive for severe neutral rigidity and back pain. Neurosurgery was consulted and emergently took the patient to the OR for a decompression, source control and laminectomy of C7-T1 and T8-T10. Postop course was not complicated, no new weakness. OR culture were followed, showed no growth. Patient had MSSA grown on blood culture from 04/21/2024, repeat blood culture on 04/23/2024 showed no growth. NARINDER negative for vegetation. Discharged from [facility] 06/01/24 to [facility] where she underwent extensive rehabilitation. [facility] 06/01/2024 to 06/19/2024. Admission Exam Per Admitting Provider Per admitting provider: General: awake, alert, no apparent distress Head: Normocephalic, atraumatic ENT: PERRL, EOMI, no pharyngeal exudate, mucous membranes moist Chest: Clear to auscultation, on room air, no adventitious breath sounds Cardiac: Regular rate and rhythm, no murmur, no JVD, normal peripheral pulses, good capillary refill Abdominal: NABS x 4 quadrants, soft, nondistended, nontender to palpation, no rebound or guarding Back: healed spinal incisions, no pain with palpation, no obvious deformity. Extremities: Normal inspection, no peripheral edema or erythema, calfs nontender to palpation Psych: Normal mood and affect Neuro: AAO x 3, strength intact bilaterally and rated 5/5, no motor deficits, speech is clear, no peripheral sensory deficits Discharge Exam General: Alert, oriented. No acute distress Psych: Appropriate mood and affect Neuro:ambulating with walker, able to move all 4 extremities without issue HEENT: NC/AT CV: RRR Resp: Breath sounds clear bilaterally, no increased effort of breathing. Abdomen: Soft, nontender Extremities: Trace edema in lower extremities bilaterally. MSK: surgical scar noted on back, does not appear infected, nontender Updated Medication List Medication Instructions Recorded Confirmed Type No Known Home Medications 04/18/24 06/21/24 History Hospital Stay Data Consultations 06/21/24 17:53 ED Decision to Admit Stat 06/21/24 20:25 Consult Infectious Diseases Routine 06/24/24 07:49 Consult General Surgery Routine Diagnostic Imagining Performed 06/21/24 15:10 MR cervical spine wo/w con Stat 06/22/24 14:21 MRI Lumbar Spine [MR lumbar spine wo/w con] Urgent MRI Thoracic [MR thoracic spine wo/w con] Urgent Cervical Spine MRI 06/21/24 15:10 MRI OF THE CERVICAL SPINE WITH AND WITHOUT CONTRAST CLINICAL HISTORY: epidural abscess, ? improving or worsening, ID req COMPARISON: CTA of the neck and cervical spine CT April 18, 2024. TECHNIQUE: Utilizing a 1.5 Laury magnet and dedicated coil, multiplanar, multiecho imaging of the cervical spine was performed before and after in travenous administration of 6.2 of Gadavist. FINDINGS: Alignment of the cervical spine is anatomic. Vertebral body heights are maintained. No marrow edema or marrow placement is present. There are no cervical spine fractures. Cervical cord signal and caliber are normal. No residual epidural fluid collection is identified status post multilevel decompression within the cervical spine. Postoperative findings within the posterior aspect of the cervical spine are noted, including a rim-enhancing fluid collection which extends from the mid cervical spine to the upper thoracic spine. This measures approximately 4.7 x 2.6 x 1.5 cm. This is postsurgical. No additional fluid collections are present. Enhancing intradural extramedullary mass within the canal at the T4 level measures 1.6 x 1 cm. Axial images through the portion of the spine were not obtained. This results in severe central canal stenosis with cord compression. There is no cord edema. This is suggestive of meningioma. No additional intracanalicular abnormalities are identified. There is no central canal stenosis within the cervical spine. Moderate multilevel neural foraminal stenosis is due to uncovertebral hypertrophy and facet arthrosis. IMPRESSION: 1. Status post multilevel cervical decompression. No residual epidural fluid abscess. 2. Postoperative findings within the posterior cervical and upper thoracic spi miley, including a rim-enhancing 4.7 x 2.6 x 1.5 cm fluid collection. This is nonspecific although not unexpected in the early postoperative setting. A seroma is favored. 3. Patent central canal within the cervical spine. Moderate multilevel neural foraminal stenosis due to facet arthrosis and uncovertebral hypertrophy. 4. 1.6 x 1 cm enhancing intradural extramedullary mass at the T4 level. This is suggestive of a meningioma which results in severe central canal stenosis with cord compression. No cord edema. ACT 112: Negative or not required by law. Electronically signed by: Edwin Spring M.D. 06/21/2024 5:58 PM Lumbar Spine MRI 06/22/24 14:21 MR lumbar spine wo/w con CLINICAL HISTORY: spinal epidural abscess TECHNIQUE: 3 plane localizer images, sagittal T2, sagittal T1, sagittal STIR, axial T1, axial T2 along with postcontrast axial T1 and sagittal T1 fat- saturated sequences were obtained of the lumbar spine, before and after intrav enous administration of 12 mL of MultiHance. Comparison: Comparison is made to CT lumbar spine 04/18/2024 FINDINGS: The alignment is anatomical. L1-L2: No significant abnormality. L2-L3: There is a broad-based posterior disc bulge without significant canal or neuroforaminal stenosis. L3-L4: No significant abnormality. L4-L5: No significant abnormality. L5-S1: No significant abnormality. The spinal ligaments are intact, without evidence of disruption or abnormal signal intensity. The spinal cord is normal in signal intensity and there is no evidence of cord contusion. There is no evidence of an extradural, intradural, extramedullary or intramedullary lesion. Mild soft tissue edema is seen, nonspecific. 4 thoracic spinal findings please see MRI thoracic spine performed same day. IMPRESSION: Mild disc disease without significant canal or neural foraminal stenosis. No acute abnormality is seen in the lumbar spine. ACT 112: Negative or not required by law. Electronically signed by: Boris Spence M.D. 06/22/2024 7:03 PM Thoracic Spine MRI 06/22/24 14:21 MR thoracic spine wo/w con CLINICAL HISTORY: spinal epidural abscess TECHNIQUE: Multiplanar sequences through the thoracic spine were obtained, without and with intravenous contrast. Comparison: Comparison is made to CT thoracic spine 04/18/2024 FINDINGS: The alignment is anatomical. Disks are normal in height and signal. The spinal canal and neural foramina are patent. There is a 35 x 4 mm region of enhancing soft tissue in the posterior aspect of the vertebral bodies of T8 and T9. The vertebral bodies are minimally edematous with no drainable fluid collection seen. Postsurgical changes are seen in the posterior soft tissues. The spinal cord is normal in signal intensity and there is no evidence of cord contusion. There is an intradural extra medullary region centered around the T4 vertebral level measuring 16 x 11 mm in diameter with uniform enhancement. There is mass effect upon the spinal canal. It does not project into the neural foramen. Mild soft tissue edema and enhancement are seen in the cervical spine as well as the lower midline thoracic spine. IMPRESSION: 1. Minimal edema of the T8 and T9 vertebral bodies which may represent recent discitis/osteomyelitis, continued infection cannot be entirely excluded by MRI. No portia fluid signal is seen to suggest drainable abscess. Adjacent soft tissue thickening and enhancement is likely postprocedural. 2. Intradural extramedullary lesion at T4 which may represent a spinal me ningioma or less likely schwannoma. ACT 112: Negative or not required by law. Electronically signed by: Boris Spence M.D. 06/22/2024 6:51 PM Discharge Instructions Given to Patient (Per Discharging Provider) Johnna You are seen by the infectious disease specialist who recommends that we discontinue antibiotics at this time based on your most recent imaging of your cervical, thoracic and lumbar spine. Your PICC line was removed by general surgery at bedside. You are requesting to have outpatient physical therapy and Occupational Therapy completed. A prescription for that will be provided to you. Please keep close follow-up with your infectious disease specialist as well as your neurosurgeon after discharge. Please also keep close follow up with your primary care provider after discharge. Please do not hesitate to come back to the emergency room if your symptoms worsen or return. It was a pleasure taking care of you while you were here. Total Time Total Time Spent Total Time Spent (In Minutes): 65
--- NOTE | 2024-06-24 11:22 | Operative Report ---
Post Operative Report Procedure Date: June 24, 2024 Pre & Post Diagnosis: left subclavian line Time Out: I identified the patient and participated in the time-out. Procedure: Removal of tunneled left subclavian line with cuff Surgeon: Corrina Longwall Shearer Operator: none Estimated Blood Loss: 1 cc Findings: small cuff near entrance site freed easily Specimens: none Description of Procedure: The patient was placed in Trendelenberg position. The suture was removed and a cuff near the entrance was freed with scissors. The line was removed and pressure was held at the site. Minimal bleeding occurred. A sterile dressing was applied. Attestation: I attest to the content of the Intraoperative Record and any orders documented therein. Any exceptions are noted below. Parrish Houser MD
[2024-06-24] MEDS: DOCUSATE SODIUM 100 MG CAP PO SCH (11:50)
== END 2024-06-24 12:35 | disposition home or self-care (01) | DRG 95 ==
LOC: ED 13:21 → 3N 18:36 → SUATTDRO 18:36 → 3N 20:06